=== PATIENT | male | born 1955 | race African-American/Black ===

== ENCOUNTER 2016-07-11 12:37 | Observation (INO) | payer OTHER, MEDICARE ==
[2016-07-11] MEDS ORDERED: IPRATROPIUM/ALBUTEROL 0.5-2.5 MG/3 ML AMPUL NEB ONE (13:09)
[2016-07-11 15:22] LABS: ALANINE AMINOTRANSFERASE 25 U/L (21-72); ALBUMIN 3.7 g/dL (3.5-5.0); ALKALINE PHOSPHATASE 79 U/L (38-126); ANION GAP 10 (5-19); ASPARTATE AMINO TRANSFERASE 16 U/L (17-59); BILIRUBIN,TOTAL 0.6 mg/dL (0.2-1.3); BLOOD UREA NITROGEN 13 mg/dL (7-20); CALCIUM 8.9 mg/dL (8.4-10.2); CARBON DIOXIDE 28 mmol/L (22-30); CHLORIDE 107 mmol/L (98-107); CREATININE RESULT 1.15 mg/dL (0.52-1.25); GLUCOSE 139 mg/dL (75-110); POTASSIUM 3.6 mmol/L (3.6-5.0); SODIUM 144.9 mmol/L (137-145); TOTAL PROTEIN 6.1 g/dL (6.3-8.2)
[2016-07-11 15:23] LABS: HEMATOCRIT 41.7 % (37.9-51.0); HEMOGLOBIN 13.8 g/dL (13.5-17.0); HGB HCT DIFFERENCE -0.3; MEAN CORPUSCULAR HEMOGLOBIN 26.8 pg (27.0-33.4); MEAN CORPUSCULAR VOLUME 81 fl (80-97); RED BLOOD COUNT 5.13 10^6/uL (4.35-5.55); RED CELL DISTRIBUTION WIDTH 16.6 % (11.5-14.0)
[2016-07-11] MEDS: IPRATROPIUM/ALBUTEROL 0.5-2.5 MG/3 ML AMPUL NEB SCH ×5 (15:34→22:01)
[2016-07-11] MEDS: METHYLPREDNISOLONE INJ 125 MG/2 ML SDV IV SCH (18:48)
[2016-07-11] MEDS ORDERED: METOPROLOL TARTRATE 50 MG TABLET PO SCH (21:45)
[2016-07-11] MEDS ORDERED: FLUTICASONE NASAL SPRAY 50 MCG/SPRY 120 SPRAY/16 GM NASL ONE (22:00)
[2016-07-11] MEDS ORDERED: DOFETILIDE 500 MCG CAPSULE PO ONE (22:00)
[2016-07-11] MEDS ORDERED: LISINOPRIL 10 MG TABLET PO ONE ×2 (22:00)
[2016-07-11] MEDS: BUDESONIDE/FORMOTEROL 160-4.5 MCG 60 PUFF/6 GM MDI IH SCH (22:24)
[2016-07-11] MEDS: METOPROLOL TARTRATE 50 MG TABLET PO SCH (22:24)
[2016-07-11] MEDS: DABIGATRAN ETEXILATE 150 MG CAPSULE PO SCH (22:25)
[2016-07-12] MEDS: IPRATROPIUM/ALBUTEROL 0.5-2.5 MG/3 ML AMPUL NEB SCH ×6 (00:11→10:07)
[2016-07-12] MEDS: METHYLPREDNISOLONE INJ 125 MG/2 ML SDV IV SCH ×3 (03:29→17:42)
[2016-07-12] MEDS ORDERED: (PENDING PHARMACY ID) (Paroxetine Hcl [Paxil] 30 MG) PO SCH (10:00)
[2016-07-12] MEDS ORDERED: LISINOPRIL 10 MG TABLET PO SCH (10:00)
[2016-07-12] MEDS ORDERED: CLONAZEPAM 1 MG TABLET PO SCH (10:00)
[2016-07-12] MEDS: ARIPIPRAZOLE 5 MG TABLET PO SCH (10:33)
[2016-07-12] MEDS: DABIGATRAN ETEXILATE 150 MG CAPSULE PO SCH ×2 (10:35→22:20)
[2016-07-12] MEDS: METOPROLOL TARTRATE 50 MG TABLET PO SCH ×2 (10:36→22:20)
[2016-07-12] MEDS: PAROXETINE HCL 20 MG TABLET PO SCH (10:39)
[2016-07-12] MEDS: LISINOPRIL 10 MG TABLET PO SCH (10:39)
[2016-07-12] MEDS: DOFETILIDE 500 MCG CAPSULE PO SCH ×2 (10:40→17:42)
[2016-07-12] MEDS: FLUTICASONE NASAL SPRAY 50 MCG/SPRY 120 SPRAY/16 GM NASL SCH (10:41)
[2016-07-12] MEDS: BUDESONIDE/FORMOTEROL 160-4.5 MCG 60 PUFF/6 GM MDI IH SCH ×2 (10:41→22:19)
[2016-07-12] MEDS: CLONAZEPAM 1 MG TABLET PO SCH ×2 (10:49→22:20)
[2016-07-12] MEDS ORDERED: IPRATROPIUM/ALBUTEROL 0.5-2.5 MG/3 ML AMPUL NEB PRN (11:38)
[2016-07-12] MEDS ORDERED: LEVALBUTEROL HCL NEB 1.25 MG/3 ML AMPUL NEB PRN (19:45)
--- NOTE | 2016-07-12 19:55 | PDOC H&P ---
History of Present Illness Admission Date/PCP: 07/11/16 12:37 CARMEN GANT MD History of Present Illness: KRISH RAMOS JR is a 61 year old male, he came to the office because of shortness of breath, wheezing, he has had multiple ED visits with same problem. He was admitted directly from the office into the hospital for evaluation and management of his symptoms, he was brought here for observation. He has no chest pain Past Medical History Cardiac Medical History: Reports: Atrial Fibrillation, Congestive Heart Failure , Myocardial Infarction, Hyperlipidema, Hypertension, Peripheral Vascular Disease Pulmonary Medical History: Reports: Asthma, Bronchitis, Pneumonia - X2, Sleep Apnea GI Medical History: Reports: Gastroesophageal Reflux Disease, Hiatal Hernia Musculoskeltal Medical History: Reports: Arthritis Psychiatric Medical History: Reports: Post Traumatic Stress Disorder, Schizoaffective Disorder Hematology: Reports: Anemia - ON IRON PILLS Past Surgical History Past Surgical History: Reports: Herniorrhaphy, Pacemaker Social History Smoking Status: Never Smoker Frequency of Alcohol Use: None Hx Recreational Drug Use: No Drugs: None Hx Prescription Drug Abuse: No Family History Family History: Arthritis, CAD, CVA, DM, Hyperlipidemia, Hypertension, Malignancy Parental Family History Reviewed: Yes Children Family History Reviewed: Yes Sibling(s) Family History Reviewed.: Yes Medication/Allergy Home Medications: Aripiprazole [Abilify 30 MG Tablet] 30 mg PO DAILY 07/11/16 Budesonide/Formoterol Fumarate [Symbicort HFA 160-4.5 mcg Inhaler 6 gm] 2 puff IH Q12 07/11/16 Clonazepam [Klonopin 1 mg Tablet] 1 mg PO BID 07/11/16 Dabigatran Etexilate Mesylate [Pradaxa 150 mg Capsule] 150 mg PO Q12 07/11/16 Dofetilide [Tikosyn 500 Mcg Capsule] 500 mcg PO BID 07/11/16 Fluticasone Propionate [Flonase Nasal [place] 50 Mcg/[place] 16 gm] 1 spray NASL DAILY 07/11/16 Lisinopril 10 mg PO DAILY 07/11/16 Metoprolol Tartrate [Lopressor 50 mg Tablet] 50 mg PO Q12H 07/11/16 Paroxetine HCl [Paxil] 30 mg PO DAILY 07/11/16 Allergies/Adverse Reactions: latex [Latex] Allergy (Severe, Verified 05/31/16 15:43) WHITTAKER SKIN Review of Systems Constitutional: PRESENT: fatigue Cardiovascular: PRESENT: dyspnea on exertion Respiratory: PRESENT: cough, dyspnea Gastrointestinal: PRESENT: nausea Musculoskeletal: PRESENT: back pain Neurological: ABSENT: as per HPI, abnormal gait, abnormal movements, abnormal speech, confusion, convulsions, dizziness, focal weakness, frequent falls, lack of coordination, memory loss, numbness, paresthesias, restless legs, syncope, tingling, tremor(s), vertigo, weakness, other Endocrine: ABSENT: as per HPI, cold intolerance, flushing, heat intolerance, menstrual abnormalities, polydipsia, polyphagia, polyuria, other Physical Exam Vital Signs: Temp Pulse Resp BP Pulse Ox 97.4 F 70 18 175/92 H 95 07/12/16 15:55 07/12/16 15:55 07/12/16 15:55 07/12/16 15:55 07/12/16 15:55 Intake & Output 07/11/16 07/12/16 07/13/16 06:59 06:59 06:59 Intake Total 1381 959 Output Total 1200 Balance 181 959 Weight 133.7 kg General appearance: PRESENT: mild distress Eye exam: PRESENT: PERRLA Mouth exam: PRESENT: moist Respiratory exam: PRESENT: prolonged expiratory phas, wheezes Cardiovascular exam: PRESENT: +S1, +S2 GI/Abdominal exam: PRESENT: soft, other - Obese abdomen Neurological exam: PRESENT: alert, CN II-XII grossly intact Results Laboratory Results: 07/11/16 14:20 07/11/16 14:20 Assessment & Plan - Diagnosis (1) COPD with acute exacerbation Is this a current diagnosis for this admission?: YesPlan: Patient is admitted for observation to be treated with Solu-Medrol and bronchodilators (2) CAD (coronary artery disease) Qualifiers: Coronary Disease-Associated Artery/Lesion type: [place] artery [place] vs. transplanted heart: [place] heart Associated angina: without angina Qualified Code(s): I25.10 - Atherosclerotic heart disease of [place] coronary artery without angina pectoris Is this a current diagnosis for this admission?: Yes
--- NOTE | 2016-07-12 19:58 | PDOC PROGRESS REPORT ---
Subjective Progress Note for:: 07/12/16 Subjective:: Patient was admitted because of acute COPD exacerbation, he said he feels better with treatment. Physical Exam Vital Signs: Temp Pulse Resp BP Pulse Ox 97.4 F 82 18 175/92 H 95 07/12/16 15:55 07/12/16 19:00 07/12/16 15:55 07/12/16 15:55 07/12/16 15:55 Intake & Output 07/11/16 07/12/16 07/13/16 06:59 06:59 06:59 Intake Total 1381 959 Output Total 1200 Balance 181 959 Weight 133.7 kg General appearance: PRESENT: mild distress, obese Eye exam: PRESENT: PERRLA Respiratory exam: PRESENT: wheezes Cardiovascular exam: PRESENT: +S1, +S2 GI/Abdominal exam: PRESENT: firm Neurological exam: PRESENT: alert, CN II-XII grossly intact Results Laboratory Results: 07/11/16 14:20 07/11/16 14:20 Assessment & Plan - Diagnosis (1) COPD with acute exacerbation Is this a current diagnosis for this admission?: Yes (2) CAD (coronary artery disease) Qualifiers: Coronary Disease-Associated Artery/Lesion type: [place] artery [place] vs. transplanted heart: [place] heart Associated angina: without angina Qualified Code(s): I25.10 - Atherosclerotic heart disease of [place] coronary artery without angina pectoris Is this a current diagnosis for this admission?: Yes
[2016-07-12 20:13] LABS: ABSOLUTE LYMPHOCYTES (AUTO) 1.5 10^3/uL (0.5-4.7); ABSOLUTE MONOCYTES (AUTO) 0.6 10^3/uL (0.1-1.4); BASOPHILS % (AUTO) 0.1 % (0-2); EOSINOPHILS % (AUTO) 0.1 % (0-6); HEMATOCRIT 45.1 % (37.9-51.0); HEMOGLOBIN 14.5 g/dL (13.5-17.0); HGB HCT DIFFERENCE -1.6; LYMPHOCYTES % (AUTO) 10.8 % (13-45); MEAN CORPUSCULAR HEMOGLOBIN 26.6 pg (27.0-33.4); MEAN CORPUSCULAR HGB CONC 32.2 g/dL (32.0-36.0); MEAN CORPUSCULAR VOLUME 83 fl (80-97); MONOCYTES % (AUTO) 4.5 % (3-13); RED BLOOD COUNT 5.47 10^6/uL (4.35-5.55); RED CELL DISTRIBUTION WIDTH 16.4 % (11.5-14.0); SEGMENTED NEUTROPHILS % (AUTO) 84.5 % (42-78)
[2016-07-12] MEDS: IPRATROPIUM/ALBUTEROL 0.5-2.5 MG/3 ML AMPUL NEB PRN (20:15)
[2016-07-12 20:18] LABS: WHITE BLOOD COUNT 14.2 10^3/uL (4.0-10.5)
[2016-07-13] MEDS: METHYLPREDNISOLONE INJ 125 MG/2 ML SDV IV SCH ×2 (02:06→10:39)
[2016-07-13] MEDS: IPRATROPIUM/ALBUTEROL 0.5-2.5 MG/3 ML AMPUL NEB PRN (04:38)
[2016-07-13] MEDS: PAROXETINE HCL 20 MG TABLET PO SCH (10:37)
[2016-07-13] MEDS: ARIPIPRAZOLE 5 MG TABLET PO SCH (10:37)
[2016-07-13] MEDS: FLUTICASONE NASAL SPRAY 50 MCG/SPRY 120 SPRAY/16 GM NASL SCH (10:38)
[2016-07-13] MEDS: CLONAZEPAM 1 MG TABLET PO SCH (10:39)
[2016-07-13] MEDS: LISINOPRIL 10 MG TABLET PO SCH (10:39)
[2016-07-13] MEDS: METOPROLOL TARTRATE 50 MG TABLET PO SCH (10:39)
[2016-07-13] MEDS: BUDESONIDE/FORMOTEROL 160-4.5 MCG 60 PUFF/6 GM MDI IH SCH (10:40)
[2016-07-13] MEDS: DABIGATRAN ETEXILATE 150 MG CAPSULE PO SCH (10:40)
[2016-07-13] MEDS: DOFETILIDE 500 MCG CAPSULE PO SCH (10:40)
--- NOTE | 2016-07-13 14:35 | PDOC DISCHARGE SUMMARY ---
General - Admit/Disc Date/PCP Admission Date/Primary Care Provider: 07/11/16 12:37 CARMEN GANT MD Discharge Date: 07/13/16 - Discharge Diagnosis (1) COPD with acute exacerbation Is this a current diagnosis for this admission?: Yes (2) CAD (coronary artery disease) Is this a current diagnosis for this admission?: Yes (3) Morbidly obese Is this a current diagnosis for this admission?: Yes - Additional Information Discharge Diet: As Tolerated Discharge Activity: Activity As Tolerated Home Medications: Aripiprazole [Abilify 30 MG Tablet] 30 mg PO DAILY 07/11/16 Budesonide/Formoterol Fumarate [Symbicort HFA 160-4.5 mcg Inhaler 6 gm] 2 puff IH Q12 07/11/16 Clonazepam [Klonopin 1 mg Tablet] 1 mg PO BID 07/11/16 Dabigatran Etexilate Mesylate [Pradaxa 150 mg Capsule] 150 mg PO Q12 07/11/16 Dofetilide [Tikosyn 500 Mcg Capsule] 500 mcg PO BID 07/11/16 Fluticasone Propionate [Flonase Nasal [place] 50 Mcg/[place] 16 gm] 1 spray NASL DAILY 07/11/16 Lisinopril 10 mg PO DAILY 07/11/16 Metoprolol Tartrate [Lopressor 50 mg Tablet] 50 mg PO Q12H 07/11/16 Paroxetine HCl [Paxil] 30 mg PO DAILY 07/11/16 Ipratropium/Albuterol Sulfate [Duoneb 3 ml Ampul] 3 ml [employer] [facility] [id number] [email or web address] 07/13/16 History of Present Illness History of Present Illness: KRISH RAMOS JR is a 61 year old male, he came to the office because of shortness of breath, wheezing, he has had multiple ED visits with same problem. He was admitted directly from the office into the hospital for evaluation and management of his symptoms, he was brought here for observation. He has no chest pain Hospital Course Hospital Course: Patient was admitted because of acute COPD exacerbation, he was treated with IV Solu-Medrol and bronchodilators. He seems to respond very well to nebulization treatment, he will discharge home on nebulizer. Full lung function tests was done/PFT result is pending. He was admitted for observation. Patient has improved since admission, is stable enough for discharge Physical Exam Vital Signs: Temp Pulse Resp BP Pulse Ox 97.1 F 76 22 H 150/91 H 97 07/13/16 11:49 07/13/16 11:49 07/13/16 11:49 07/13/16 11:49 07/13/16 11:49 Intake & Output 07/12/16 07/13/16 07/14/16 06:59 06:59 06:59 Intake Total 1381 1443 Output Total 1200 600 Balance 181 843 Weight 133.7 kg General appearance: PRESENT: no acute distress Eye exam: PRESENT: PERRLA Respiratory exam: PRESENT: clear to auscultation martita Cardiovascular exam: PRESENT: +S1, +S2 GI/Abdominal exam: PRESENT: soft Neurological exam: PRESENT: alert, CN II-XII grossly intact Results Laboratory Results: 07/12/16 20:05 07/11/16 14:20 07/12/16 20:05 WBC 14.2 H D RBC 5.47 Hgb 14.5 Hct 45.1 MCV 83 MCH 26.6 L MCHC 32.2 RDW 16.4 H Plt Count 112 L Seg Neutrophils % 84.5 H Lymphocytes % 10.8 L Monocytes % 4.5 Eosinophils % 0.1 Basophils % 0.1 Absolute Neutrophils 12.0 H Absolute Lymphocytes 1.5 Absolute Monocytes 0.6 Absolute Eosinophils 0.0 Absolute Basophils 0.0
[2016-07-13 15:52] VITALS: BP 142/90
--- NOTE | 2016-07-16 13:56 | Pulmonary Function Test ---
Pulmonary Function Test Date of Procedure:: 07/13/16 INDICATION:: Dyspnea Referring Provider: Dr. 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 - Report Spirometry: FVC 2.74 L 65% postbronchodilator therapy 2.67 L 63% FEV1 1.97 L 58% postbronchodilator therapy 1.96 L 58% FEV1/FVC % 72 postbronchodilator 73 Total lung capacity 4.09 L 63% Vital capacity 2.74 L 65% Inspiratory capacity 2.03 L FRC 2.06 L 74% ERV 0.34 L RV 1.35 L 57% RV/TLC % 33 predicted 38 DLCO 17.5 59% DLCO/VA 5.87 150% Lung Volume: Total lung capacity 4.09 L 63% Vital capacity 2.74 L 65% Inspiratory capacity 2.03 L FRC 2.06 L 74% ERV 0.34 L RV 1.35 L 57% RV/TLC % 33 predicted 38 Diffusion Capactity: DLCO 17.5 59% DLCO/VA 5.87 150% Impression: Mild obstructive ventilatory defect with no response to bronchodilator therapy moderate restrictive ventilatory defect with no evidence of hyperinflation or air trapping. There is a moderate decrease in diffusion capacity. (Poor test performance is indicated by volume extrapolation of FVC.)
== END 2016-07-13 17:03 | disposition home or self-care (01) ==
LOC: INTOOBSV 12:37 → 4W 12:37
PROVIDERS: ADMIT Internal Medicine; ATTEND Internal Medicine
DX: J44.1 Chronic obstructive pulmonary disease with (acute) exacerbation (principal); I25.10 Atherosclerotic heart disease of native coronary artery without angina pectoris; I48.91 Unspecified atrial fibrillation; I50.9 Heart failure, unspecified; E78.5 Hyperlipidemia, unspecified; I10 Essential (primary) hypertension; D64.9 Anemia, unspecified; I73.9 Peripheral vascular disease, unspecified; K21.9 Gastro-esophageal reflux disease without esophagitis; K44.9 Diaphragmatic hernia without obstruction or gangrene; M19.90 Unspecified osteoarthritis, unspecified site; F43.10 Post-traumatic stress disorder, unspecified; F25.9 Schizoaffective disorder, unspecified; E66.01 Morbid (severe) obesity due to excess calories; Z68.41 Body mass index [BMI] 40.0-44.9, adult; Z79.899 Other long term (current) drug therapy; Z95.0 Presence of cardiac pacemaker; I25.2 Old myocardial infarction; Z91.040 Latex allergy status
CPT/HCPCS: 36415 ×2; 85025; 85027; 80076; 80048; 94729; 94060; 94640 ×3; G0378 ×3; G0379; J3490 ×5; J2930 ×3; J7620 ×3

== ENCOUNTER 2016-07-29 13:55 | Inpatient (IN) | payer MEDICARE, OTHER ==
--- NOTE | 2016-07-29 14:00 | ER Document Report ---
ED Medical Screen (RME) - General Stated Complaint: FACIAL NUMBNESS,FAST HEART BEAT Time seen by provider: 13:59 Mode of Arrival: Ambulatory Information source: Patient Notes: 61-year-old male presents to ED for chest pain and facial numbness. Cranial nerves grossly intact no facial. 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 I have greeted and performed a rapid initial assessment of this patient. A comprehensive ED assessment and evaluation of the patient, analysis of test results and completion of medical decision making process will be conducted by an additional ED providers. TRAVEL OUTSIDE OF THE [place] IN LAST 30 DAYS: No - Related Data Allergies/Adverse Reactions: latex [Latex] Allergy (Severe, Verified 05/31/16 15:43) WHITTAKER SKIN Past Medical History - Past Medical History Cardiac Medical History: Reports: Hx Atrial Fibrillation, Hx Congestive Heart Failure, Hx Heart Attack, Hx Hypercholesterolemia, Hx Hypertension, Hx Peripheral Vascular Disease Pulmonary Medical History: Reports: Hx Asthma, Hx Bronchitis, Hx Pneumonia - X2 , Hx Sleep Apnea Neurological Medical History: Reports: Hx Cerebrovascular Accident Renal/ Medical History: Reports: Hx Benign Prostatic Hyperplasia, Hx Kidney Stones GI Medical History: Reports: Hx Gastroesophageal Reflux Disease, Hx Hiatal Hernia Musculoskeltal Medical History: Reports Hx Arthritis, Reports Hx Musculoskeletal Trauma Psychiatric Medical History: Reports: Hx Post Traumatic Stress Disorder, Hx Schizoaffective Disorder, Hx Schizophrenia Denies: Hx Depression Traumatic Medical History: Reports: Hx Fractures - Left foot Past Surgical History: Reports: Hx Cardiac Surgery - defib, Hx Herniorrhaphy, Hx Pacemaker, Hx Urinary Tract Surgery - prostate. testicle 6-3-14 - Immunizations Immunizations up to date: Yes Hx Diphtheria, Pertussis, Tetanus Vaccination: No
[2016-07-29] MEDS ORDERED: ASPIRIN 81 MG TABLET, CHEWABLE ONE (14:48)
[2016-07-29 14:53] LABS: ABSOLUTE EOSINOPHILS # (AUTO) 0.2 10^3/uL (0.0-0.6); ABSOLUTE LYMPHOCYTES (AUTO) 1.7 10^3/uL (0.5-4.7); ABSOLUTE MONOCYTES (AUTO) 0.5 10^3/uL (0.1-1.4); BASOPHILS % (AUTO) 0.6 % (0-2); EOSINOPHILS % (AUTO) 2.9 % (0-6); HEMATOCRIT 43.3 % (37.9-51.0); HEMOGLOBIN 14.3 g/dL (13.5-17.0); HGB HCT DIFFERENCE -0.4; LYMPHOCYTES % (AUTO) 26.5 % (13-45); MEAN CORPUSCULAR HGB CONC 32.9 g/dL (32.0-36.0); MEAN CORPUSCULAR VOLUME 82 fl (80-97); MONOCYTES % (AUTO) 8.4 % (3-13); RED BLOOD COUNT 5.28 10^6/uL (4.35-5.55); RED CELL DISTRIBUTION WIDTH 16.6 % (11.5-14.0); SEGMENTED NEUTROPHILS % (AUTO) 61.6 % (42-78); WHITE BLOOD COUNT 6.4 10^3/uL (4.0-10.5)
[2016-07-29 14:58] LABS: PARTIAL THROMBOPLASTIN TIME 30.3 SEC (23.5-35.8); PROTHROMBIN TIME 14.3 SEC (11.4-15.4)
[2016-07-29] MEDS ORDERED: METOPROLOL TARTRATE PF/INJ 5 MG/5 ML SDV IV ONE (15:03)
[2016-07-29] MEDS ORDERED: IPRATROPIUM/ALBUTEROL 0.5-2.5 MG/3 ML AMPUL NEB ONE ×2 (15:04→16:15)
[2016-07-29 15:10] LABS: ALANINE AMINOTRANSFERASE 31 U/L (21-72); ALBUMIN 3.9 g/dL (3.5-5.0); ALKALINE PHOSPHATASE 73 U/L (38-126); ANION GAP 9 (5-19); ASPARTATE AMINO TRANSFERASE 18 U/L (17-59); BILIRUBIN,TOTAL 0.6 mg/dL (0.2-1.3); BLOOD UREA NITROGEN 12 mg/dL (7-20); CALCIUM 9.1 mg/dL (8.4-10.2); CARBON DIOXIDE 28 mmol/L (22-30); CHLORIDE 108 mmol/L (98-107); CREATINE KINASE 241 U/L (55-170); CREATININE RESULT 1.26 mg/dL (0.52-1.25); GLUCOSE 117 mg/dL (75-110); POTASSIUM 3.9 mmol/L (3.6-5.0); SODIUM 144.8 mmol/L (137-145)
--- NOTE | 2016-07-29 15:10 | ER Document Report ---
ED General - General Chief Complaint: Chest Pain Stated Complaint: FACIAL NUMBNESS,FAST HEART BEAT Mode of Arrival: Ambulatory Information source: Patient Notes: This is a 61-year-old -[place] male with multiple medical problems who states that he has been feeling poorly for the past few days, mainly feeling tired. Today, at about 12:30, as he was in the car going to [employer], he states that he felt his heart started to beat fast and had some chest pain. He states that this was similar to his prior episodes of A. fib. This was associated with left upper extremity numbness and left neck and lower face numbness. Also he states he is short of breath. He says that in some respect this does remind him of his prior [place] several years ago. No nausea no vomiting. Upon arrival to the ER he says he does have some mild numbness to his left lower extremity as well. Of note he states he has had a terrible headache today. Currently he denies any actual chest pain just states that his chest feels "numb".. TRAVEL OUTSIDE OF THE [place] IN LAST 30 DAYS: No - Related Data Allergies/Adverse Reactions: latex [Latex] Allergy (Severe, Verified 05/31/16 15:43) WHITTAKER SKIN Past Medical History - General Information source: Patient - Social History Smoking Status: Unknown if Ever Smoked Family History: Arthritis, CAD, CVA, DM, Hyperlipidemia, Hypertension, Malignancy - Past Medical History Cardiac Medical History: Reports: Hx Atrial Fibrillation, Hx Congestive Heart Failure, Hx Heart Attack, Hx Hypercholesterolemia, Hx Hypertension, Hx Peripheral Vascular Disease Pulmonary Medical History: Reports: Hx Asthma, Hx Bronchitis, Hx Pneumonia - X2 , Hx Sleep Apnea Neurological Medical History: Reports: Hx Cerebrovascular Accident Renal/ Medical History: Reports: Hx Benign Prostatic Hyperplasia, Hx Kidney Stones GI Medical History: Reports: Hx Gastroesophageal Reflux Disease, Hx Hiatal Hernia Musculoskeltal Medical History: Reports Hx Arthritis, Reports Hx Musculoskeletal Trauma Psychiatric Medical History: Reports: Hx Post Traumatic Stress Disorder, Hx Schizoaffective Disorder, Hx Schizophrenia Denies: Hx Depression Traumatic Medical History: Reports: Hx Fractures - Left foot Past Surgical History: Reports: Hx Cardiac Surgery - defib, Hx Herniorrhaphy, Hx Pacemaker, Hx Urinary Tract Surgery - prostate. testicle 6-3-14 - Immunizations Immunizations up to date: Yes Hx Diphtheria, Pertussis, Tetanus Vaccination: No Hx Pneumococcal Vaccination: 06/03/10 Review of Systems - Review of Systems Notes: REVIEW OF SYSTEMS: CONSTITUTIONAL : Denies fever, chills, or sweats. Denies recent illness. EENT: Denies eye, ear, throat, or mouth pain or symptoms. Denies nasal or sinus congestion. CARDIOVASCULAR: Chest pain as per history of present illness RESPIRATORY: Shortness of breath as per history of present illness GASTROINTESTINAL: Denies abdominal pain. Denies nausea, vomiting, or diarrhea. Denies constipation. GENITOURINARY: Denies difficulty urinating, painful urination, burning, frequency, or blood in urine. MUSCULOSKELETAL: Denies neck or back pain or joint pain or swelling. SKIN: Denies rash or skin lesions. HEMATOLOGIC : Denies easy bruising or bleeding. LYMPHATIC: Denies swollen, enlarged glands. NEUROLOGICAL: As per history of present illness PSYCHIATRIC: Denies anxiety or stress or depression. ALL OTHER SYSTEMS REVIEWED AND NEGATIVE. Physical Exam - Vital signs Vitals: Resp Pulse Ox 20 97 07/29/16 14:39 07/29/16 14:39 Blood pressure on my exam in the room was 186/104, heart rate 72 - Notes Notes: PHYSICAL EXAMINATION: GENERAL: Well-appearing, well-nourished -[place] male, conversant and in no acute distress. HEAD: Atraumatic, normocephalic. EYES: Pupils equal round and reactive to light, extraocular movements intact, conjunctiva are normal. ENT: nares patent, oropharynx clear without exudates. Moist mucous membranes. NECK: Normal range of motion, supple without lymphadenopathy LUNGS: Decreased by basilar breath sounds with faint scattered occasional wheeze. HEART: Regular rate and rhythm without murmurs ABDOMEN: Soft, nontender, normoactive bowel sounds. No guarding, no rebound. No masses appreciated. EXTREMITIES: Normal range of motion, no pitting or edema. No cyanosis. NEUROLOGICAL: Alert and oriented x4. Cranial nerves grossly intact. Slight dysarthria which is baseline from his prior CVA. Baseline motor weakness of right upper and right lower extremity. Patient states subjectively decreased sensation to left upper and left lower extremity, however he does have sensation. Motor strength +5/5 muscle groups of LUE. Pt does have slight weakness to L foot dorsiflexion and plantar flexion. No drift. Normal cerebellar testing (gamble to heel). SKIN: Warm, Dry, normal turgor, no rashes or lesions noted. Course - Re-evaluation Re-evalutation: 07/29/16 15:19 Patient was reevaluated. He states that his breathing is about the same however his numbness on the left side is a little bit better. On repeat neurologic testing, his motor shrink this +5 over 5 in the bilateral upper and lower extremities with no asymmetry. He is to be given a DuoNeb as well as low pressure for his hypertension. Will continue frequent re-evaluations. At this time his NIH stroke scale is 1 and given his degree of hypertension as well as the fact that he is on dabigatran, I do not feel that he is a candidate for TPA at this time. Also his symptoms are mild and his symptoms are improving at this time. This was discussed with the patient and the family and their questions were answered. 07/29/16 16:10 Patient reevaluated. His blood pressure is 145/117. He states that his breathing has improved after the DuoNeb. Also he states that the numbness on the left side is completely resolved. He is having no chest pain at this time. 07/29/16 16:[address] Garcia. We will repeat a second set of cardiac enzymes in 30 minutes and if negative patient will be admitted to IMCU 07/29/16 23:57 - Vital Signs Vital signs: Temp Pulse Resp BP Pulse Ox 97.9 F 62 19 159/101 H 97 07/29/16 19:41 07/29/16 23:43 07/29/16 23:43 07/29/16 23:43 07/29/16 23:45 - Laboratory Result Diagrams: 07/29/16 14:40 07/29/16 14:40 Laboratory results interpreted by me: 07/29/16 07/29/16 14:40 14:40 RDW 16.6 H Plt Count 109 L Chloride 108 H Creatinine 1.26 H Est GFR (Non-Af Amer) 58 L Glucose 117 H Creatine Kinase 241 H - EKG Interpretation by Vt EKG shows normal: Sinus rhythm Rate: Normal Rhythm: NSR Voltage: Consistant with LVH When compared to previous EKG there are: No significant change Critical Care Note - Critical Care Note Total time excluding time spent on procedures (mins): 35 - minutes of critical care time spent in direct contact evaluating and reevaluating the patient, treating symptoms, reviewing labs and studies and speaking with family and consultants excluding any procedures Discharge - Discharge Clinical Impression: Accelerated hypertension Chest pain Qualifiers: Chest pain type: unspecified Qualified Code(s): R07.9 - Chest pain, unspecified TIA (transient ischemic attack) Qualifiers: Transient cerebral ischemia type: unspecified Qualified Code(s): G45.9 - Transient cerebral ischemic attack, unspecified Condition: Stable Disposition: ADMITTED INPATIENT Admitting Provider: Garcia Unit Admitted: Telemetry
[2016-07-29 15:22] LABS: CREATINE KINASE MB 1.07 ng/mL (<4.55)
[2016-07-29 15:26] LABS: TROPONIN I < 0.012 ng/mL
[2016-07-29] MEDS ORDERED: METHYLPREDNISOLONE INJ 125 MG/2 ML SDV IV ONE (16:14)
[2016-07-29] MEDS ORDERED: ACETAMINOPHEN 325 MG TABLET PO PRN (17:11)
--- NOTE | 2016-07-29 17:22 | PDOC H&P ---
History of Present Illness Admission Date/PCP: CARMEN GANT MD Patient complains of: chest pain/numbness History of Present Illness: KRISH RAMOS JR is a 61 year old male this 61 y/o man with h/o afib/stroke/defibator came to er with c/o lt side chest pain and numbness on lt side and weakness and in er all work up stable and all sx resolved pt denied any chest pain and denied any numbness and tingling pt see cardilogy at [facility] for cad/defbator and a fib Past Medical History Cardiac Medical History: Reports: Atrial Fibrillation, Congestive Heart Failure , Myocardial Infarction, Hyperlipidema, Hypertension, Peripheral Vascular Disease Pulmonary Medical History: Reports: Asthma, Bronchitis, Pneumonia - X2, Sleep Apnea Neurological Medical History: Reports: Ischemic CVA GI Medical History: Reports: Gastroesophageal Reflux Disease, Hiatal Hernia Musculoskeltal Medical History: Reports: Arthritis Psychiatric Medical History: Reports: Post Traumatic Stress Disorder, Schizoaffective Disorder Denies: Depression Hematology: Reports: Anemia - ON IRON PILLS Past Surgical History Past Surgical History: Reports: Herniorrhaphy, Pacemaker Social History Information Source: Patient Lives with: Family Smoking Status: Current Every Day Smoker Frequency of Alcohol Use: None Hx Recreational Drug Use: No Drugs: None Hx Prescription Drug Abuse: No Family History Family History: Arthritis, CAD, CVA, DM, Hyperlipidemia, Hypertension, Malignancy Parental Family History Reviewed: Yes Children Family History Reviewed: Yes Sibling(s) Family History Reviewed.: Yes Medication/Allergy Home Medications: Aripiprazole [Abilify 30 MG Tablet] 30 mg PO DAILY 07/11/16 Budesonide/Formoterol Fumarate [Symbicort HFA 160-4.5 mcg Inhaler 6 gm] 2 puff IH Q12 07/11/16 Clonazepam [Klonopin 1 mg Tablet] 1 mg PO BID 07/11/16 Dabigatran Etexilate Mesylate [Pradaxa 150 mg Capsule] 150 mg PO Q12 07/11/16 Dofetilide [Tikosyn 500 Mcg Capsule] 500 mcg PO BID 07/11/16 Fluticasone Propionate [Flonase Nasal [place] 50 Mcg/[place] 16 gm] 1 spray NASL DAILY 07/11/16 Lisinopril 10 mg PO DAILY 02/08/17 Metoprolol Tartrate [Lopressor 50 mg Tablet] 50 mg PO Q12H 07/11/16 Paroxetine HCl [Paxil] 30 mg PO DAILY 07/11/16 Ipratropium/Albuterol Sulfate [Duoneb 3 ml Ampul] 3 ml [facility] [id number] #[id number] vial.[email or web address] [facility] 07/13/16 Allergies/Adverse Reactions: latex [Latex] Allergy (Severe, Verified 05/31/16 15:43) WHITTAKER SKIN Review of Systems Constitutional: ABSENT: chills, fever(s), headache(s), weight gain, weight loss Eyes: ABSENT: visual disturbances Ears: ABSENT: hearing changes Cardiovascular: PRESENT: chest pain, palpitations. ABSENT: dyspnea on exertion , edema, orthropnea Respiratory: ABSENT: cough, hemoptysis Gastrointestinal: ABSENT: abdominal pain, constipation, diarrhea, hematemesis, hematochezia, nausea, vomiting Genitourinary: ABSENT: dysuria, hematuria Musculoskeletal: ABSENT: joint swelling Integumentary: ABSENT: rash, wounds Neurological: PRESENT: numbness, paresthesias. ABSENT: abnormal gait, abnormal speech, confusion, dizziness, focal weakness, syncope Psychiatric: ABSENT: anxiety, depression, homidical ideation, suicidal ideation Endocrine: ABSENT: cold intolerance, heat intolerance, menstrual abnormalities, polydipsia, polyuria Hematologic/Lymphatic: ABSENT: easy bleeding, easy bruising, lymphadenopathy Physical Exam Vital Signs: Temp Pulse Resp BP Pulse Ox 98.0 F 69 15 145/117 H 99 07/29/16 16:28 07/29/16 14:52 07/29/16 17:00 07/29/16 16:02 07/29/16 17:00 General appearance: PRESENT: no acute distress, well-developed, well-nourished Head exam: PRESENT: atraumatic, normocephalic Eye exam: PRESENT: conjunctiva pink, EOMI, PERRLA. ABSENT: scleral icterus Ear exam: PRESENT: normal external ear exam Mouth exam: PRESENT: moist, tongue midline Neck exam: PRESENT: full ROM. ABSENT: carotid bruit, JVD, lymphadenopathy, thyromegaly Respiratory exam: PRESENT: clear to auscultation martita Cardiovascular exam: PRESENT: RRR. ABSENT: diastolic murmur, rubs, systolic murmur Pulses: PRESENT: normal dorsalis pedis pul, +2 pedal pulses bilateral Vascular exam: PRESENT: normal capillary refill GI/Abdominal exam: PRESENT: normal bowel sounds, soft. ABSENT: distended, guarding, mass, organolmegaly, rebound, tenderness Rectal exam: PRESENT: deferred Neurological exam: PRESENT: alert, awake, oriented to person, oriented to place , oriented to time, oriented to situation, CN II-XII grossly intact. ABSENT: motor sensory deficit Psychiatric exam: PRESENT: appropriate affect, normal mood. ABSENT: homicidal ideation, suicidal ideation Skin exam: PRESENT: dry, intact, warm. ABSENT: cyanosis, rash Results Laboratory Results: 07/29/16 14:40 07/29/16 14:40 07/29/16 07/29/16 14:40 14:40 WBC 6.4 RBC 5.28 Hgb 14.3 Hct 43.3 MCV 82 MCH 27.0 MCHC 32.9 RDW 16.6 H Plt Count 109 L Seg Neutrophils % 61.6 Lymphocytes % 26.5 Monocytes % 8.4 Eosinophils % 2.9 Basophils % 0.6 Absolute Neutrophils 4.0 Absolute Lymphocytes 1.7 Absolute Monocytes 0.5 Absolute Eosinophils 0.2 Absolute Basophils 0.0 Sodium 144.8 Potassium 3.9 Chloride 108 H Carbon Dioxide 28 Anion Gap 9 BUN 12 Creatinine 1.26 H Est GFR ( Amer) > 60 Est GFR (Non-Af Amer) 58 L Glucose 117 H Calcium 9.1 Total Bilirubin 0.6 AST 18 ALT 31 Alkaline Phosphatase 73 Total Protein 7.0 Albumin 3.9 07/29/16 07/29/16 14:40 14:40 Creatine Kinase 241 H CK-MB (CK-2) 1.07 Troponin I < 0.012 Impressions: Chest X-Ray 07/29/16 14:20 IMPRESSION: No significant interval change. Cardiomegaly. No acute consolidations are identified. Head CT 07/29/16 14:20 IMPRESSION: No significant interval changes compared to the previous study. No significant intracranial abnormalities were identified. Findings as noted above Assessment & Plan - Diagnosis (1) TIA (transient ischemic attack) Qualifiers: Transient cerebral ischemia type: unspecified Qualified Code(s): G45.9 - Transient cerebral ischemic attack, unspecified Is this a current diagnosis for this admission?: YesPlan: admit under stroke protocol cont prdaxa and asa carotid doppler and echo order un ablt to do mri due to defbilator (2) Chest pain Qualifiers: Chest pain type: unspecified Qualified Code(s): R07.9 - Chest pain, unspecified Is this a current diagnosis for this admission?: YesPlan: order [facility] consult cardilogy (3) CAD (coronary artery disease) Qualifiers: Coronary Disease-Associated Artery/Lesion type: [place] artery [place] vs. transplanted heart: [place] heart Associated angina: without angina Qualified Code(s): I25.10 - Atherosclerotic heart disease of [place] coronary artery without angina pectoris Is this a current diagnosis for this admission?: YesPlan: cont curr med (4) COPD (chronic obstructive pulmonary disease) Qualifiers: COPD type: unspecified COPD Qualified Code(s): J44.9 - Chronic obstructive pulmonary disease, unspecified Is this a current diagnosis for this admission?: YesPlan: stable (5) Cervical radiculopathy Is this a current diagnosis for this admission?: YesPlan: possble numbness from radiculopthy pt was admitted in past and cardilogy dr serra s/o all numbness come from radiculopthy (6) Chronic atrial fibrillation Is this a current diagnosis for this admission?: YesPlan: cont curr med (7) Morbidly obese Is this a current diagnosis for this admission?: Yes - Time Time Spent: 30 to 50 Minutes Medications reviewed and adjusted accordingly: Yes Anticipated discharge: Home, Other Within: Other - Inpatient Certification Medical Necessity: Significant Comorbidiites Make Outpatient Treatment Too Risky , Need Close Monitoring Due to Risk of Patient Decompensation Post Hospital Care: D/C Operations Supervisor Documentation - Plan Summary Plan Summary: admit in [facility] per tia protcol and r/o acute cad d/w pt and family
--- NOTE | 2016-07-29 17:40 | EKG REPORT ---
SEVERITY:- ABNORMAL ECG - SINUS RHYTHM LEFT VENTRICULAR HYPERTROPHY : Confirmed by: Ana Jon MD 29-Jul-2016 17:39:24
[2016-07-29 17:46] LABS: TROPONIN I < 0.012 ng/mL
[2016-07-29] MEDS ORDERED: DABIGATRAN ETEXILATE 150 MG CAPSULE PO ONE (22:30)
[2016-07-29] MEDS: DABIGATRAN ETEXILATE 150 MG CAPSULE PO SCH (23:12)
[2016-07-29] MEDS: CLONAZEPAM 1 MG TABLET PO SCH (23:22)
[2016-07-29] MEDS: METOPROLOL TARTRATE 50 MG TABLET PO SCH (23:24)
[2016-07-29 23:59] LABS: CREATINE KINASE MB 1.07 ng/mL (<4.55)
[2016-07-30] LABS: TROPONIN I < 0.012 ng/mL
[2016-07-30] MEDS: LANSOPRAZOLE 15 MG TAB.RAP.DR PO SCH ×2 (05:59→16:41)
[2016-07-30 06:11] LABS: ABSOLUTE MONOCYTES (AUTO) 0.1 10^3/uL (0.1-1.4); ABSOLUTE NEUT (AUTO) 5.3 10^3/uL (1.7-8.2); BASOPHILS % (AUTO) 0.2 % (0-2); HEMATOCRIT 44.3 % (37.9-51.0); HEMOGLOBIN 14.4 g/dL (13.5-17.0); HGB HCT DIFFERENCE -1.1; LYMPHOCYTES % (AUTO) 15.5 % (13-45); MEAN CORPUSCULAR HEMOGLOBIN 26.7 pg (27.0-33.4); MEAN CORPUSCULAR HGB CONC 32.6 g/dL (32.0-36.0); MEAN CORPUSCULAR VOLUME 82 fl (80-97); MONOCYTES % (AUTO) 1.5 % (3-13); RED BLOOD COUNT 5.41 10^6/uL (4.35-5.55); RED CELL DISTRIBUTION WIDTH 17.1 % (11.5-14.0); SEGMENTED NEUTROPHILS % (AUTO) 82.8 % (42-78); WHITE BLOOD COUNT 6.5 10^3/uL (4.0-10.5)
[2016-07-30 06:28] LABS: ALANINE AMINOTRANSFERASE 31 U/L (21-72); ALBUMIN 3.7 g/dL (3.5-5.0); ALKALINE PHOSPHATASE 73 U/L (38-126); ANION GAP 10 (5-19); ASPARTATE AMINO TRANSFERASE 17 U/L (17-59); BILIRUBIN,TOTAL 0.7 mg/dL (0.2-1.3); BLOOD UREA NITROGEN 15 mg/dL (7-20); CALCIUM 9.3 mg/dL (8.4-10.2); CARBON DIOXIDE 27 mmol/L (22-30); CHLORIDE 106 mmol/L (98-107); CREATINE KINASE 211 U/L (55-170); GLUCOSE 141 mg/dL (75-110); POTASSIUM 4.7 mmol/L (3.6-5.0); SODIUM 142.5 mmol/L (137-145); TOTAL PROTEIN 6.8 g/dL (6.3-8.2)
[2016-07-30 06:34] LABS: CREATINE KINASE MB 1.16 ng/mL (<4.55); TROPONIN I < 0.012 ng/mL
[2016-07-30] MEDS ORDERED: BUDESONIDE/FORMOTEROL 160-4.5 MCG 60 PUFF/6 GM MDI IH SCH (08:00)
[2016-07-30] MEDS: IPRATROPIUM/ALBUTEROL 0.5-2.5 MG/3 ML AMPUL NEB SCH ×4 (08:17→20:50)
--- NOTE | 2016-07-30 09:47 | PDOC CONSULTATION ---
Consultation Consult Date: 07/30/16 Attending physician:: AGATA KO Consult reason:: Chest pain History of Present Illness Admission Date/PCP: 07/29/16 17:11 CARMEN GANT MD Patient complains of: Chest pain History of Present Illness: KRISH RAMOS JR is a 61 year old male this 61 y/o man with h/o afib/stroke/defibator came to er with c/o lt side chest pain and numbness on lt side and weakness and in er all work up stable and all sx resolved. Patient did have a stress test less than a year ago which was unremarkable. A 2-D echo about the same time showed normal LVEF. Patient does have a defibrillator in situ. Patient denied any defibrillator shocks. Currently patient chest pain-free. Patient also does history of sleep apnea and claims to be compliant with CPAP use. pt denied any chest pain and denied any numbness and tingling pt see cardilogy at [facility] [address] for cad/defbator and a fib Past Medical History Cardiac Medical History: Reports: Atrial Fibrillation, Congestive Heart Failure , Myocardial Infarction, Hyperlipidema, Hypertension, Peripheral Vascular Disease Pulmonary Medical History: Reports: Asthma, Bronchitis, Pneumonia - X2, Sleep Apnea Neurological Medical History: Reports: Ischemic CVA GI Medical History: Reports: Gastroesophageal Reflux Disease, Hiatal Hernia Musculoskeltal Medical History: Reports: Arthritis Psychiatric Medical History: Reports: Depression, Post Traumatic Stress Disorder , Schizoaffective Disorder Hematology: Reports: Anemia - ON IRON PILLS Past Surgical History Past Surgical History: Reports: Herniorrhaphy, Pacemaker - Pacemaker defibrillator Social History Information Source: Patient Lives with: Family Smoking Status: Never Smoker Frequency of Alcohol Use: None Hx Recreational Drug Use: No Drugs: None Hx Prescription Drug Abuse: No - Advance Directive Resuscitation Status: Full Code Surrogate healthcare decision maker:: Patient's Family History Family History: Arthritis, CAD, CVA, DM, Hyperlipidemia, Hypertension, Malignancy Parental Family History Reviewed: Yes Children Family History Reviewed: Yes Sibling(s) Family History Reviewed.: Yes - Positive for CAD but not premature Medication/Allergy Home Medications: Aripiprazole [Abilify 30 MG Tablet] 30 mg PO DAILY 07/11/16 Budesonide/Formoterol Fumarate [Symbicort HFA 160-4.5 mcg Inhaler 6 gm] 2 puff IH Q12 07/11/16 Clonazepam [Klonopin 1 mg Tablet] 1 mg PO BID 07/11/16 Dabigatran Etexilate Mesylate [Pradaxa 150 mg Capsule] 150 mg PO Q12 07/11/16 Dofetilide [Tikosyn 500 Mcg Capsule] 500 mcg PO BID 07/11/16 Fluticasone Propionate [Flonase Nasal [place] 50 Mcg/[place] 16 gm] 1 spray NASL DAILY 07/11/16 Lisinopril 10 mg PO DAILY 07/11/16 Metoprolol Tartrate [Lopressor 50 mg Tablet] 50 mg PO Q12H 07/11/16 Paroxetine HCl [Paxil] 30 mg PO DAILY 07/11/16 Ipratropium/Albuterol Sulfate [Duoneb 3 ml Ampul] 3 ml [facility] [id number] #[id number] vial.[facility] 07/13/16 Allergies/Adverse Reactions: latex [Latex] Allergy (Severe, Verified 05/31/16 15:43) WHITTAKER SKIN Review of Systems Review of Systems: Please see history of present illness and past medical history as wall. Constitutional: No fever or chills reported. Head : No recent chronic headaches, recent head injury. Eyes: No recent eye pain, diplopia, redness, discharge, acute visual changes. Ears: No recent chronic ear pain, acute hearing loss, ear discharge. Oral cavity: No recent ulcerations, bleeding, oral cavity discomfort. Neck: No recent acute neck pain reported. Hematologic: No recent easy bruising or bleeding or hematologic malignancy reported. Lymphatic: No recent lymphatic malignancy, chronic lymphadenopathy reported yet Cardiovascular system review: See history of present illness. Respiratory system review: No recent chronic cough, hemoptysis, blood clots in the lungs reported. Mild Shortness of breath on exertion Gastrointestinal system review: Negative for any recent acute or chronic abdominal pain, hematemesis, melena, recent change in bowel habits. Genitourinary system review: No recent acute or chronic hematuria, flank pain, UTI etc. reported. Skin system review: Negative for any recent abnormal bruising, no rash, no pruritus reported. Neurologic: Positive prior history of strokes, mini strokes, no definite seizure disorder. Psychologic: No history of major psychosis or major depression reported. Musculoskeletal: Minor aches and pains reported. No acute joint swelling reported. Endocrine: No recent polyuria, polydipsia, recent heat or cold intolerance. Physical Exam Vital Signs: Temp Pulse Resp BP Pulse Ox 97.7 F 71 19 155/100 H 93 07/30/16 08:39 07/30/16 08:39 07/30/16 08:39 07/30/16 08:39 07/30/16 08:39 Intake & Output 07/29/16 07/30/16 07/31/16 06:59 06:59 06:59 Intake Total 5 Output Total 500 Balance -495 Weight 134 kg Exam: GENERAL: well-nourished and in no acute distress. Alert and oriented x3 HEAD: Atraumatic, normocephalic. EYES: Pupils equal round and reactive to light, extraocular movements intact, sclera anicteric, conjunctiva are normal. ENT: TMs normal, nares patent, oropharynx clear without exudates. Moist mucous membranes. No oral ulcerations or bleeding gums noted NECK: supple without lymphadenopathy. Trachea is central. No cervical or axillary lymphadenopathy noted. Carotids are 2+, JVD WNL LUNGS: Respiration seems nonlabored, no significant accessory muscle action noted. Breath sounds clear to auscultation bilaterally and equal noted. No wheezes rales or rhonchi noted. No significant dullness noted on percussion. CHEST: Palpation of the chest wall shows no significant chest wall tenderness. No other significant abnormalities noted. Defibrillator noted left side chest. HEART: [place] [employer], No PSH, 1/6 HEIKE aortic area, 1/6 soto systolic murmur mitral area, no rubs, no gallops. ABDOMEN: Soft, no significant tenderness appreciated, normoactive bowel sounds. No guarding, no rebound. No rigidity noted . No masses appreciated. EXTREMITIES: Pedal pulses are 1-2+, no calf tenderness noted. No clubbing or cyanosis.trace to 1+ pedal edema noted NEUROLOGICAL: Focused neurological exam showed no significant neurologic deficit. Normal speech, no focal weakness appreciated. PSYCH: Normal mood, normal affect. Judgment and insight within normal limits. SKIN: No significant ecchymosis, rash, ulcerations or signs of pruritus noted. MUSCULOSKELETAL EXAM: No significant joint swelling noted. Results Laboratory Results: 07/30/16 05:25 07/30/16 05:25 07/30/16 07/30/16 05:25 05:25 WBC 6.5 RBC 5.41 Hgb 14.4 Hct 44.3 MCV 82 MCH 26.7 L MCHC 32.6 RDW 17.1 H Plt Count 101 L Seg Neutrophils % 82.8 H Lymphocytes % 15.5 Monocytes % 1.5 L Eosinophils % 0.0 Basophils % 0.2 Absolute Neutrophils 5.3 Absolute Lymphocytes 1.0 Absolute Monocytes 0.1 Absolute Eosinophils 0.0 Absolute Basophils 0.0 Sodium 142.5 Potassium 4.7 Chloride 106 Carbon Dioxide 27 Anion Gap 10 BUN 15 Creatinine 1.10 Est GFR ( Amer) > 60 Est GFR (Non-Af Amer) > 60 Glucose 141 H Calcium 9.3 Total Bilirubin 0.7 AST 17 ALT 31 Alkaline Phosphatase 73 Total Protein 6.8 Albumin 3.7 07/29/16 07/29/16 07/29/16 17:15 23:16 23:16 Creatine Kinase 234 H 230 H CK-MB (CK-2) 1.07 Troponin I < 0.012 07/30/16 07/30/16 05:25 05:25 Creatine Kinase 211 H CK-MB (CK-2) 1.16 Troponin I < 0.012 EKG Comments: Sinus rhythm, no acute ST-T wave changes noted Impressions: Chest X-Ray 07/29/16 14:20 IMPRESSION: No significant interval change. Cardiomegaly. No acute consolidations are identified. Head CT 07/29/16 14:20 IMPRESSION: No significant interval changes compared to the previous study. No significant intracranial abnormalities were identified. Findings as noted above Assessment & Plan - Diagnosis (1) Chest pain Qualifiers: Chest pain type: unspecified Qualified Code(s): R07.9 - Chest pain, unspecified Is this a current diagnosis for this admission?: Yes (2) TIA (transient ischemic attack) Qualifiers: Transient cerebral ischemia type: unspecified Qualified Code(s): G45.9 - Transient cerebral ischemic attack, unspecified Is this a current diagnosis for this admission?: Yes (3) COPD (chronic obstructive pulmonary disease) Qualifiers: COPD type: unspecified COPD Qualified Code(s): J44.9 - Chronic obstructive pulmonary disease, unspecified Is this a current diagnosis for this admission?: Yes (4) Sleep apnea syndrome Qualifiers: Sleep apnea type: unspecified type Qualified Code(s): G47.30 - Sleep apnea, unspecified Is this a current diagnosis for this admission?: Yes (5) Obesity Qualifiers: Obesity severity: unspecified obesity severity Is this a current diagnosis for this admission?: Yes - Notes Notes: Chest pain: Patient had a recent negative stress test. At this point, in the absence of recurrence of chest pain, negative enzymes and negative EKG changes, no further intervention planned. Transient ischemic attack: Continue with statin and chronic anticoagulation. COPD: currently stable, continue baseline management. Sleep apnea syndrome: Patient may benefit from a repeat titration study. Patient advised compliance with CPAP therapy. Obesity: Patient advised in weight loss. Paroxysmal atrial fibrillation: Patient currently maintaining sinus rhythm. Currently stable. Continue chronic anticoagulation. - Time Time Spent: 30 to 50 Minutes - CODE STATUS was discussed, patient remains full code. Surrogate decision-maker unchanged. Multiple medical problems were addressed.More than 50% of the time spent coordinating care, discussing management plans with involved caregivers. Management plans discussed with involved personnels. Medical decision making was of moderate complexity.
[2016-07-30] MEDS: ARIPIPRAZOLE 5 MG TABLET PO SCH (10:38)
[2016-07-30] MEDS: ASPIRIN 325 MG TABLET, ENT COATED PO SCH (10:39)
[2016-07-30] MEDS: PAROXETINE HCL 20 MG TABLET PO SCH (10:39)
[2016-07-30] MEDS: CLONAZEPAM 1 MG TABLET PO SCH ×2 (10:39→21:10)
[2016-07-30] MEDS: FLUTICASONE NASAL SPRAY 50 MCG/SPRY 120 SPRAY/16 GM NASL SCH (10:41)
[2016-07-30] MEDS: BUDESONIDE/FORMOTEROL 160-4.5 MCG 60 PUFF/6 GM MDI IH SCH ×2 (10:41→21:11)
[2016-07-30] MEDS: DABIGATRAN ETEXILATE 150 MG CAPSULE PO SCH ×2 (10:42→21:11)
[2016-07-30] MEDS: METOPROLOL TARTRATE 50 MG TABLET PO SCH ×2 (10:47→21:11)
[2016-07-30] MEDS: DOFETILIDE 500 MCG CAPSULE PO SCH ×2 (10:48→17:34)
--- NOTE | 2016-07-30 19:20 | PDOC DISCHARGE SUMMARY ---
General - Admit/Disc Date/PCP Admission Date/Primary Care Provider: 07/29/16 17:11 CARMEN GANT MD Discharge Date: 07/30/16 - Discharge Diagnosis (1) TIA (transient ischemic attack) Is this a current diagnosis for this admission?: Yes (2) COPD (chronic obstructive pulmonary disease) Is this a current diagnosis for this admission?: Yes - Additional Information Resuscitation Status: Full Code Home Medications: Albuterol Sulfate [Proair HFA] 2 puff IH Q4HP PRN 07/30/16 Aripiprazole [Abilify 30 MG Tablet] 30 mg PO DAILY 07/30/16 Benztropine Mesylate [Benztropine Mesylate 2 mg Tablet] 2 mg PO Q12 07/30/16 Budesonide/Formoterol Fumarate [Symbicort HFA 160-4.5 mcg Inhaler 6 gm] 2 puff IH Q12 07/30/16 Clonazepam [Klonopin] 1 mg PO Q12 07/30/16 Dabigatran Etexilate Mesylate [Pradaxa 150 mg Capsule] 150 mg PO Q12 07/30/16 Dofetilide [Tikosyn 500 Mcg Capsule] 500 mcg PO Q12 07/30/16 Doxepin HCl [Silenor] 6 mg PO QHS 07/30/16 Finasteride [Proscar 5 mg Tablet] 5 mg PO DAILY 07/30/16 Fluticasone Propionate [Flonase Nasal [place] 50 Mcg/[place] 16 gm] 1 spray NASL DAILY 07/30/16 Lisinopril [Zestril] 10 mg PO DAILY 07/30/16 Methocarbamol [Robaxin 500 mg Tablet] 500 mg PO Q12 07/30/16 Metoprolol Tartrate [Lopressor 50 mg Tablet] 50 mg PO Q12 07/30/16 Paroxetine HCl [Paxil 20 mg Tablet] 30 mg PO DAILY #0 tablet 07/30/16 Paroxetine HCl [Paxil] 30 mg PO QAM 07/30/16 Potassium Chloride 10 meq PO DAILY 07/30/16 History of Present Illness History of Present Illness: KRISH RAMOS JR is a 61 year old male was admitted because of transient ischemic attack, was admitted for observation, he daily is to be because of transient weakness of the facial musculature Physical Exam Vital Signs: Temp Pulse Resp BP Pulse Ox 97.8 F 66 19 149/96 H 89 L 07/30/16 15:51 07/30/16 16:00 07/30/16 16:00 07/30/16 16:00 07/30/16 16:00 Intake & Output 07/29/16 07/30/16 07/31/16 06:59 06:59 06:59 Intake Total 5 954 Output Total 500 0 Balance -495 954 Weight 134 kg 134 kg General appearance: PRESENT: no acute distress Eye exam: PRESENT: PERRLA Respiratory exam: PRESENT: clear to auscultation martita Cardiovascular exam: PRESENT: +S1, +S2 GI/Abdominal exam: PRESENT: soft Neurological exam: PRESENT: alert, CN II-XII grossly intact Results Laboratory Results: 07/30/16 05:25 07/30/16 05:25 07/30/16 07/30/16 05:25 05:25 WBC 6.5 RBC 5.41 Hgb 14.4 Hct 44.3 MCV 82 MCH 26.7 L MCHC 32.6 RDW 17.1 H Plt Count 101 L Seg Neutrophils % 82.8 H Lymphocytes % 15.5 Monocytes % 1.5 L Eosinophils % 0.0 Basophils % 0.2 Absolute Neutrophils 5.3 Absolute Lymphocytes 1.0 Absolute Monocytes 0.1 Absolute Eosinophils 0.0 Absolute Basophils 0.0 Sodium 142.5 Potassium 4.7 Chloride 106 Carbon Dioxide 27 Anion Gap 10 BUN 15 Creatinine 1.10 Est GFR ( Amer) > 60 Est GFR (Non-Af Amer) > 60 Glucose 141 H Calcium 9.3 Total Bilirubin 0.7 AST 17 ALT 31 Alkaline Phosphatase 73 Total Protein 6.8 Albumin 3.7 07/29/16 07/29/16 07/29/16 17:15 23:16 23:16 Creatine Kinase 234 H 230 H CK-MB (CK-2) 1.07 Troponin I < 0.012 07/30/16 07/30/16 05:25 05:25 Creatine Kinase 211 H CK-MB (CK-2) 1.16 Troponin I < 0.012 Impressions: Chest X-Ray 07/29/16 14:20 IMPRESSION: No significant interval change. Cardiomegaly. No acute consolidations are identified. Head CT 07/29/16 14:20 IMPRESSION: No significant interval changes compared to the previous study. No significant intracranial abnormalities were identified. Findings as noted above
[2016-07-31 06:06] LABS: ABSOLUTE EOSINOPHILS # (AUTO) 0.1 10^3/uL (0.0-0.6); ABSOLUTE LYMPHOCYTES (AUTO) 2.2 10^3/uL (0.5-4.7); ABSOLUTE MONOCYTES (AUTO) 0.8 10^3/uL (0.1-1.4); ABSOLUTE NEUT (AUTO) 5.7 10^3/uL (1.7-8.2); BASOPHILS % (AUTO) 0.1 % (0-2); EOSINOPHILS % (AUTO) 1.2 % (0-6); LYMPHOCYTES % (AUTO) 25.1 % (13-45); MEAN CORPUSCULAR HEMOGLOBIN 26.5 pg (27.0-33.4); MEAN CORPUSCULAR HGB CONC 32.5 g/dL (32.0-36.0); MEAN CORPUSCULAR VOLUME 82 fl (80-97); MONOCYTES % (AUTO) 9.3 % (3-13); RED BLOOD COUNT 5.27 10^6/uL (4.35-5.55); SEGMENTED NEUTROPHILS % (AUTO) 64.3 % (42-78); WHITE BLOOD COUNT 8.9 10^3/uL (4.0-10.5)
[2016-07-31 06:24] LABS: ALANINE AMINOTRANSFERASE 28 U/L (21-72); ALBUMIN 3.7 g/dL (3.5-5.0); ALKALINE PHOSPHATASE 71 U/L (38-126); ANION GAP 9 (5-19); ASPARTATE AMINO TRANSFERASE 16 U/L (17-59); BILIRUBIN,TOTAL 0.6 mg/dL (0.2-1.3); BLOOD UREA NITROGEN 18 mg/dL (7-20); CARBON DIOXIDE 29 mmol/L (22-30); CHLORIDE 104 mmol/L (98-107); CREATININE RESULT 1.11 mg/dL (0.52-1.25); GLUCOSE 123 mg/dL (75-110); SODIUM 142.4 mmol/L (137-145); TOTAL PROTEIN 6.6 g/dL (6.3-8.2)
[2016-07-31] MEDS: LANSOPRAZOLE 15 MG TAB.RAP.DR PO SCH (06:33)
[2016-07-31] MEDS: IPRATROPIUM/ALBUTEROL 0.5-2.5 MG/3 ML AMPUL NEB SCH (08:25)
[2016-07-31] MEDS: ARIPIPRAZOLE 5 MG TABLET PO SCH (10:35)
[2016-07-31] MEDS: DABIGATRAN ETEXILATE 150 MG CAPSULE PO SCH (10:35)
[2016-07-31] MEDS: ASPIRIN 325 MG TABLET, ENT COATED PO SCH (10:36)
[2016-07-31] MEDS: PAROXETINE HCL 20 MG TABLET PO SCH (10:36)
[2016-07-31] MEDS: CLONAZEPAM 1 MG TABLET PO SCH (10:36)
[2016-07-31] MEDS: BUDESONIDE/FORMOTEROL 160-4.5 MCG 60 PUFF/6 GM MDI IH SCH (10:37)
[2016-07-31] MEDS: DOFETILIDE 500 MCG CAPSULE PO SCH (10:37)
[2016-07-31] MEDS: FLUTICASONE NASAL SPRAY 50 MCG/SPRY 120 SPRAY/16 GM NASL SCH (10:40)
[2016-07-31] MEDS: METOPROLOL TARTRATE 50 MG TABLET PO SCH (10:41)
[2016-07-31 10:48] VITALS: BP 152/101
--- NOTE | 2016-07-31 13:23 | PDOC PROGRESS REPORT ---
Subjective Progress Note for:: 07/31/16 Subjective:: Patient seems to be doing better. Patient was having carotid duplex when he was seen. Pt is denying any chest arm or neck discomfort. Patient denying any PND, orthopnea. Patient denied any sustained palpitations, dizziness, syncope, near syncope. Patient denying any fever chills. Patient denying any other significant discomfort. Patient is maintaining sinus rhythm. Review of systems: Rest review of systems negative. Medications: Medications have been reviewed. Physical Exam Vital Signs: Temp Pulse Resp BP Pulse Ox 97.8 F 69 22 H 152/101 H 97 07/31/16 10:43 07/31/16 10:43 07/31/16 10:43 07/31/16 10:43 07/31/16 10:43 Intake & Output 07/30/16 07/31/16 08/01/16 06:59 06:59 06:59 Intake Total 5 1886 Output Total 500 0 Balance -495 1886 Weight 134 kg 133.7 kg Exam: GENERAL: well-nourished and in no acute distress. Alert and oriented x3 HEAD: Atraumatic, normocephalic. EYES: Pupils equal round and reactive to light, extraocular movements intact, sclera anicteric, conjunctiva are normal. ENT: TMs normal, nares patent, oropharynx clear without exudates. Moist mucous membranes. No oral ulcerations or bleeding gums noted NECK: supple without lymphadenopathy. Trachea is central. No cervical or axillary lymphadenopathy noted. Carotids are 2+, JVD WNL LUNGS: Respiration seems nonlabored, no significant accessory muscle action noted. Breath sounds clear to auscultation bilaterally and equal noted. No wheezes rales or rhonchi noted. No significant dullness noted on percussion. CHEST: Palpation of the chest wall shows no significant chest wall tenderness. No other significant abnormalities noted. 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 ABDOMEN: Soft, no significant tenderness appreciated, normoactive bowel sounds. No guarding, no rebound. No rigidity noted . No masses appreciated. EXTREMITIES: Pedal pulses are 1-2+, no calf tenderness noted. No clubbing or cyanosis.trace to 1+ pedal edema noted NEUROLOGICAL: Focused neurological exam showed no significant neurologic deficit. Normal speech, no focal weakness appreciated. PSYCH: Normal mood, normal affect. Judgment and insight within normal limits. SKIN: No significant ecchymosis, rash, ulcerations or signs of pruritus noted. MUSCULOSKELETAL EXAM: No significant joint swelling noted. Results Laboratory Results: 07/31/16 05:12 07/31/16 05:12 07/31/16 07/31/16 05:12 05:12 WBC 8.9 RBC 5.27 Hgb 14.0 Hct 43.0 MCV 82 MCH 26.5 L MCHC 32.5 RDW 17.0 H Plt Count 103 L Seg Neutrophils % 64.3 Lymphocytes % 25.1 Monocytes % 9.3 Eosinophils % 1.2 Basophils % 0.1 Absolute Neutrophils 5.7 Absolute Lymphocytes 2.2 Absolute Monocytes 0.8 Absolute Eosinophils 0.1 Absolute Basophils 0.0 Sodium 142.4 Potassium 4.0 Chloride 104 Carbon Dioxide 29 Anion Gap 9 BUN 18 Creatinine 1.11 Est GFR ( Amer) > 60 Est GFR (Non-Af Amer) > 60 Glucose 123 H Calcium 9.0 Total Bilirubin 0.6 AST 16 L ALT 28 Alkaline Phosphatase 71 Total Protein 6.6 Albumin 3.7 07/29/16 07/29/16 07/29/16 17:15 23:16 23:16 Creatine Kinase 234 H 230 H CK-MB (CK-2) 1.07 Troponin I < 0.012 07/30/16 07/30/16 05:25 05:25 Creatine Kinase 211 H CK-MB (CK-2) 1.16 Troponin I < 0.012 Impressions: Chest X-Ray 07/29/16 14:20 IMPRESSION: No significant interval change. Cardiomegaly. No acute consolidations are identified. Head CT 07/29/16 14:20 IMPRESSION: No significant interval changes compared to the previous study. No significant intracranial abnormalities were identified. Findings as noted above Carotid Doppler Study 07/31/16 00:00 IMPRESSION: NO HEMODYNAMICALLY SIGNIFICANT STENOSIS. Assessment & Plan - Diagnosis (1) Chest pain Qualifiers: Chest pain type: unspecified Qualified Code(s): R07.9 - Chest pain, unspecified Is this a current diagnosis for this admission?: Yes (2) TIA (transient ischemic attack) Qualifiers: Transient cerebral ischemia type: unspecified Qualified Code(s): G45.9 - Transient cerebral ischemic attack, unspecified Is this a current diagnosis for this admission?: Yes (3) COPD (chronic obstructive pulmonary disease) Qualifiers: COPD type: unspecified COPD Qualified Code(s): J44.9 - Chronic obstructive pulmonary disease, unspecified Is this a current diagnosis for this admission?: Yes (4) Sleep apnea syndrome Qualifiers: Sleep apnea type: unspecified type Qualified Code(s): G47.30 - Sleep apnea, unspecified Is this a current diagnosis for this admission?: Yes (5) Obesity Qualifiers: Obesity severity: unspecified obesity severity Is this a current diagnosis for this admission?: Yes - Notes Notes: Chest pain: [place] to be noncardiac in view of negative enzymes. If this persist , further evaluation with either a nuclear stress test or cardiac catheterization may become indicated. Patient does wish to follow locally. TIA: Continue statins and chronic anticoagulation. Carotid duplex results pending. COPD: Currently stable. Obesity: Patient encouraged in weight loss. Paroxysmal atrial fibrillation: Patient currently maintaining sinus rhythm and is on chronic anticoagulation. Status post pacemaker placement: Currently stable. Chest x-ray review shows that patient does have a pacemaker not a defibrillator. - Time Time with patient: 15-25 minutes - CODE STATUS was discussed, patient remains full code. Surrogate decision-maker unchanged. Multiple medical problems were addressed.More than 50% of the time spent coordinating care, discussing management plans with involved caregivers. Management plans discussed with involved personnels. Medical decision making was of moderate complexity. Medications reviewed and adjusted accordingly: Yes
== END 2016-07-31 11:22 | disposition home or self-care (01) | DRG 69 ==
LOC: ER 13:55 → EH 17:11 → 3W 07-30 00:42
PROVIDERS: ADMIT Family Medicine; ATTEND Internal Medicine
DX: G45.9 Transient cerebral ischemic attack, unspecified (principal); Z68.41 Body mass index [BMI] 40.0-44.9, adult; I69.322 Dysarthria following cerebral infarction; I25.2 Old myocardial infarction; E87.5 Hyperkalemia; I48.0 Paroxysmal atrial fibrillation; R20.0 Anesthesia of skin; R53.1 Weakness; R07.89 Other chest pain; E66.01 Morbid (severe) obesity due to excess calories; D64.9 Anemia, unspecified; F43.10 Post-traumatic stress disorder, unspecified; K21.9 Gastro-esophageal reflux disease without esophagitis; I11.0 Hypertensive heart disease with heart failure; I50.9 Heart failure, unspecified; M54.12 Radiculopathy, cervical region; M19.90 Unspecified osteoarthritis, unspecified site; I25.10 Atherosclerotic heart disease of native coronary artery without angina pectoris; F17.200 Nicotine dependence, unspecified, uncomplicated; I73.9 Peripheral vascular disease, unspecified; J45.909 Unspecified asthma, uncomplicated; F25.9 Schizoaffective disorder, unspecified; N40.0 Benign prostatic hyperplasia without lower urinary tract symptoms; Z87.442 Personal history of urinary calculi; Z91.040 Latex allergy status; Z79.899 Other long term (current) drug therapy; Z95.0 Presence of cardiac pacemaker; Z82.49 Family history of ischemic heart disease and other diseases of the circulatory system; Z82.3 Family history of stroke; Z83.3 Family history of diabetes mellitus; Z80.9 Family history of malignant neoplasm, unspecified; Z82.61 Family history of arthritis
CPT/HCPCS: 36415; 70450; 71010; 80053; 82550; 82553; 84484; 85025; 85610; 85730; 93005; 93010; 93880; 94640; 96374; 96375; 99291; J2930; J3490; J7620

== ENCOUNTER 2016-10-26 14:51 | Observation (INO) | payer OTHER, MEDICARE ==
[2016-10-26 15:51] LABS: HEMATOCRIT 43.7 % (37.9-51.0); HEMOGLOBIN 13.9 g/dL (13.5-17.0); MEAN CORPUSCULAR HEMOGLOBIN 25.5 pg (27.0-33.4); MEAN CORPUSCULAR HGB CONC 31.8 g/dL (32.0-36.0); MEAN CORPUSCULAR VOLUME 80 fl (80-97); RED BLOOD COUNT 5.45 10^6/uL (4.35-5.55); RED CELL DISTRIBUTION WIDTH 16.9 % (11.5-14.0); WHITE BLOOD COUNT 6.4 10^3/uL (4.0-10.5)
[2016-10-26 16:10] LABS: ALANINE AMINOTRANSFERASE 38 U/L (21-72); ALBUMIN 3.6 g/dL (3.5-5.0); ALKALINE PHOSPHATASE 86 U/L (38-126); ANION GAP 10 (5-19); ASPARTATE AMINO TRANSFERASE 23 U/L (17-59); BILIRUBIN,DIRECT 0.3 mg/dL (0.0-0.4); BILIRUBIN,TOTAL 0.5 mg/dL (0.2-1.3); BLOOD UREA NITROGEN 15 mg/dL (7-20); CALCIUM 9.2 mg/dL (8.4-10.2); CARBON DIOXIDE 28 mmol/L (22-30); CHLORIDE 107 mmol/L (98-107); CREATININE RESULT 1.17 mg/dL (0.52-1.25); GLUCOSE 117 mg/dL (75-110); SODIUM 144.8 mmol/L (137-145); TOTAL PROTEIN 6.7 g/dL (6.3-8.2)
[2016-10-26 16:40] LABS: THYROID STIMULATING HORMONE 0.68 uIU/mL (0.47-4.68)
[2016-10-26] MEDS ORDERED: ALBUTEROL SULFATE HFA (90 MCG/PUFF) 200 PUFF/8.5 GM MDI IH PRN (18:25)
[2016-10-26] MEDS: CLONAZEPAM 1 MG TABLET PO SCH (21:56)
[2016-10-26] MEDS: BENZTROPINE MESYLATE 1 MG TABLET PO SCH (21:57)
[2016-10-26] MEDS: METOPROLOL TARTRATE 50 MG TABLET PO SCH (21:57)
[2016-10-26] MEDS: BUDESONIDE/FORMOTEROL 160-4.5 MCG 60 PUFF/6 GM MDI IH SCH (21:58)
[2016-10-26] MEDS: DOFETILIDE 500 MCG CAPSULE PO SCH (21:58)
[2016-10-26] MEDS: DABIGATRAN ETEXILATE 150 MG CAPSULE PO SCH (21:58)
[2016-10-26] MEDS: METHOCARBAMOL 500 MG TABLET PO SCH (21:59)
[2016-10-26] MEDS ORDERED: (PENDING PHARMACY ID) (Doxepin Hcl [Silenor] 6 MG) PO SCH (22:00)
[2016-10-26 22:27] LABS: APPEARANCE,URINE CLEAR; BILIRUBIN,URINE NEGATIVE (NEGATIVE); GLUCOSE, URINE NEGATIVE (NEGATIVE); KETONES,URINE NEGATIVE (NEGATIVE); LEUKOCYTE ESTERASE,URINE NEGATIVE (NEGATIVE); NITRITE,URINE NEGATIVE (NEGATIVE); PROTEIN,URINE NEGATIVE (NEGATIVE); URINE SPECIFIC GRAVITY 1.012; UROBILINOGEN,URINE NEGATIVE mg/dL (<2.0)
[2016-10-27] MEDS ORDERED: PAROXETINE HCL 20 MG TABLET PO SCH (08:00)
[2016-10-27] MEDS ORDERED: FUROSEMIDE 20 MG TABLET PO SCH (08:00)
[2016-10-27] MEDS: CLONAZEPAM 1 MG TABLET PO SCH (09:04)
[2016-10-27] MEDS: BENZTROPINE MESYLATE 1 MG TABLET PO SCH (09:04)
[2016-10-27] MEDS: DOFETILIDE 500 MCG CAPSULE PO SCH (09:05)
[2016-10-27] MEDS: METOPROLOL TARTRATE 50 MG TABLET PO SCH (09:05)
[2016-10-27] MEDS: DABIGATRAN ETEXILATE 150 MG CAPSULE PO SCH (09:05)
[2016-10-27] MEDS: METHOCARBAMOL 500 MG TABLET PO SCH (09:06)
[2016-10-27] MEDS: BUDESONIDE/FORMOTEROL 160-4.5 MCG 60 PUFF/6 GM MDI IH SCH (09:16)
[2016-10-27] MEDS ORDERED: LISINOPRIL 10 MG TABLET PO SCH (10:00)
[2016-10-27] MEDS ORDERED: FLUTICASONE NASAL SPRAY 50 MCG/SPRY 120 SPRAY/16 GM NASL SCH (10:00)
[2016-10-27] MEDS ORDERED: POTASSIUM CHLORIDE 10 MEQ TABLET.SA PO SCH (10:00)
[2016-10-27] MEDS ORDERED: FINASTERIDE 5 MG TABLET PO SCH (10:00)
[2016-10-27] MEDS ORDERED: ARIPIPRAZOLE 5 MG TABLET PO SCH (10:00)
--- NOTE | 2016-10-27 12:47 | PDOC H&P ---
History of Present Illness Admission Date/PCP: 10/26/16 14:51 CARMEN GANT MD History of Present Illness: KRISH RAMOS JR is a 61 year old male, he has a history of obesity, BMI 48 , chronic atrial fibrillation, chronic bronchitis. He came to the office because he said he was referred from the [place] [facility] to come to the office to see me because of abnormal lab data. He stated that he had blood work done in the [place] [facility] and he was found to have a low hemoglobin. He did not have the lab results with him, it was Saturday evening, patient spouse stated that it is best to admit him to the hospital for evaluation due to the fact that they were advised in the [place] [facility] that he has a low hemoglobin. He was admitted directly from the office to the hospital, but the hemogram that was done in this hospital was normal, the comprehensive metabolic panel was normal. There is no evidence of anemia based on the blood work that was done in this hospital Past Medical History Cardiac Medical History: Reports: Atrial Fibrillation, Myocardial Infarction, Hyperlipidema, Hypertension, Peripheral Vascular Disease Pulmonary Medical History: Reports: Asthma, Bronchitis, Chronic Obstructive Pulmonary Disease (COPD), Pneumonia - X2, Sleep Apnea GI Medical History: Reports: Gastroesophageal Reflux Disease, Hiatal Hernia Musculoskeltal Medical History: Reports: Arthritis Psychiatric Medical History: Reports: Depression, Post Traumatic Stress Disorder , Schizoaffective Disorder Hematology: Reports: Anemia - ON IRON PILLS Past Surgical History Past Surgical History: Reports: Herniorrhaphy, Pacemaker - Pacemaker defibrillator Social History Smoking Status: Never Smoker Frequency of Alcohol Use: None Hx Recreational Drug Use: No Drugs: None Hx Prescription Drug Abuse: No Family History Family History: Arthritis, CAD, CVA, DM, Hyperlipidemia, Hypertension, Malignancy Parental Family History Reviewed: Yes Children Family History Reviewed: Yes Sibling(s) Family History Reviewed.: Yes Medication/Allergy Home Medications: Albuterol Sulfate [Proair HFA] 2 puff IH Q4HP PRN 10/26/16 Aripiprazole [Abilify 30 MG Tablet] 30 mg PO DAILY 10/26/16 Benztropine Mesylate [Benztropine Mesylate 2 mg Tablet] 2 mg PO Q12 10/26/16 Budesonide/Formoterol Fumarate [Symbicort HFA 160-4.5 mcg Inhaler 6 gm] 2 puff IH Q12 10/26/16 Clonazepam [Klonopin 1 mg Tablet] 1 mg PO Q12 10/26/16 Dabigatran Etexilate Mesylate [Pradaxa 150 mg Capsule] 150 mg PO Q12 10/26/16 Dofetilide [Tikosyn 500 Mcg Capsule] 500 mcg PO Q12 10/26/16 Doxepin HCl [Silenor] 6 mg PO QHS 10/26/16 Finasteride [Proscar 5 mg Tablet] 5 mg PO DAILY 10/26/16 Fluticasone Propionate [Flonase Nasal [place] 50 Mcg/[place] 16 gm] 1 spray NASL DAILY 10/26/16 Furosemide [Lasix 20 mg Tablet] 20 mg PO QAM 10/26/16 Lisinopril [Zestril] 10 mg PO DAILY 10/26/16 Methocarbamol [Robaxin 500 mg Tablet] 500 mg PO Q12 10/26/16 Metoprolol Tartrate [Lopressor] 50 mg PO Q12 10/26/16 Paroxetine HCl [Paxil 20 mg Tablet] 30 mg PO QAM 10/26/16 Potassium Chloride [K-Tab ER] 10 meq PO DAILY 10/26/16 Allergies/Adverse Reactions: latex [Latex] Allergy (Severe, Verified 05/31/16 15:43) WHITTAKER SKIN Review of Systems Constitutional: PRESENT: weight gain Eyes: ABSENT: visual disturbances Ears: ABSENT: hearing changes Cardiovascular: ABSENT: chest pain, dyspnea on exertion, edema, orthropnea, palpitations Respiratory: PRESENT: cough, dyspnea Gastrointestinal: ABSENT: abdominal pain, constipation, diarrhea, hematemesis, hematochezia, nausea, vomiting Genitourinary: ABSENT: dysuria, hematuria Musculoskeletal: ABSENT: joint swelling Integumentary: ABSENT: rash, wounds Neurological: ABSENT: abnormal gait, abnormal speech, confusion, dizziness, focal weakness, syncope Psychiatric: ABSENT: anxiety, depression, homidical ideation, suicidal ideation Endocrine: ABSENT: cold intolerance, heat intolerance, menstrual abnormalities, polydipsia, polyuria Hematologic/Lymphatic: ABSENT: easy bleeding, easy bruising, lymphadenopathy Physical Exam Vital Signs: Temp Pulse Resp BP Pulse Ox 98.2 F 70 22 H 152/88 H 96 10/27/16 11:13 10/27/16 11:13 10/27/16 11:13 10/27/16 11:13 10/27/16 11:13 Intake & Output 10/26/16 10/27/16 10/28/16 06:59 06:59 06:59 Intake Total 318 Output Total 1950 Balance -1632 Weight 135.624 kg General appearance: PRESENT: no acute distress, morbidly obese Head exam: PRESENT: atraumatic, normocephalic Eye exam: PRESENT: conjunctiva pink, EOMI, PERRLA Ear exam: PRESENT: normal external ear exam Mouth exam: PRESENT: moist, tongue midline Neck exam: PRESENT: full ROM Respiratory exam: PRESENT: rhonchi Cardiovascular exam: PRESENT: +S1, +S2 Vascular exam: PRESENT: normal capillary refill GI/Abdominal exam: PRESENT: normal bowel sounds, soft Rectal exam: PRESENT: deferred Neurological exam: PRESENT: alert, awake, oriented to person, oriented to place , oriented to time, oriented to situation, CN II-XII grossly intact Psychiatric exam: PRESENT: appropriate affect, normal mood Skin exam: PRESENT: dry, intact, warm Results Laboratory Results: 10/26/16 15:40 10/26/16 15:40 10/26/16 10/26/16 10/26/16 15:40 15:40 15:40 WBC 6.4 RBC 5.45 Hgb 13.9 Hct 43.7 MCV 80 MCH 25.5 L MCHC 31.8 L RDW 16.9 H Plt Count 100 L Sodium 144.8 Potassium 4.0 Chloride 107 Carbon Dioxide 28 Anion Gap 10 BUN 15 Creatinine 1.17 Est GFR ( Amer) > 60 Est GFR (Non-Af Amer) > 60 Glucose 117 H Calcium 9.2 Iron 31.4 L TIBC 402 % Saturation 8 Ferritin 10.80 L Total Bilirubin 0.5 AST 23 ALT 38 Alkaline Phosphatase 86 Total Protein 6.7 Albumin 3.6 TSH 0.68 Free T4 0.94 Urine Color Urine Appearance Urine pH Ur Specific [place] Urine Protein Urine Glucose (UA) Urine Ketones Urine Blood Urine Nitrite Ur Leukocyte Esterase Urine WBC (Auto) 10/26/16 22:02 WBC RBC Hgb Hct MCV MCH MCHC RDW Plt Count Sodium Potassium Chloride Carbon Dioxide Anion Gap BUN Creatinine Est GFR ( Amer) Est GFR (Non-Af Amer) Glucose Calcium Iron TIBC % Saturation Ferritin Total Bilirubin AST ALT Alkaline Phosphatase Total Protein Albumin TSH Free T4 Urine Color YELLOW Urine Appearance CLEAR Urine pH 5.0 Ur Specific [place] 1.012 Urine Protein NEGATIVE Urine Glucose (UA) NEGATIVE Urine Ketones NEGATIVE Urine Blood NEGATIVE Urine Nitrite NEGATIVE Ur Leukocyte Esterase NEGATIVE Urine WBC (Auto) 0 Assessment & Plan - Diagnosis (1) CAD (coronary artery disease) Qualifiers: Coronary Disease-Associated Artery/Lesion type: [place] artery [place] vs. transplanted heart: [place] heart Associated angina: without angina Qualified Code(s): I25.10 - Atherosclerotic heart disease of [place] coronary artery without angina pectoris Is this a current diagnosis for this admission?: Yes (2) COPD (chronic obstructive pulmonary disease) Qualifiers: COPD type: unspecified COPD Qualified Code(s): J44.9 - Chronic obstructive pulmonary disease, unspecified Is this a current diagnosis for this admission?: Yes
--- NOTE | 2016-10-27 12:51 | PDOC DISCHARGE SUMMARY ---
General - Admit/Disc Date/PCP Admission Date/Primary Care Provider: 10/26/16 14:51 CARMEN GANT MD Discharge Date: 10/27/16 - Discharge Diagnosis (1) COPD (chronic obstructive pulmonary disease) Is this a current diagnosis for this admission?: Yes (2) CAD (coronary artery disease) Is this a current diagnosis for this admission?: Yes - Additional Information Discharge Diet: As Tolerated Discharge Activity: Activity As Tolerated Home Medications: Albuterol Sulfate [Proair HFA] 2 puff IH Q4HP PRN 10/26/16 Aripiprazole [Abilify 30 MG Tablet] 30 mg PO DAILY 10/26/16 Benztropine Mesylate [Benztropine Mesylate 2 mg Tablet] 2 mg PO Q12 10/26/16 Budesonide/Formoterol Fumarate [Symbicort HFA 160-4.5 mcg Inhaler 6 gm] 2 puff IH Q12 10/26/16 Clonazepam [Klonopin 1 mg Tablet] 1 mg PO Q12 10/26/16 Dabigatran Etexilate Mesylate [Pradaxa 150 mg Capsule] 150 mg PO Q12 10/26/16 Dofetilide [Tikosyn 500 Mcg Capsule] 500 mcg PO Q12 10/26/16 Doxepin HCl [Silenor] 6 mg PO QHS 10/26/16 Finasteride [Proscar 5 mg Tablet] 5 mg PO DAILY 10/26/16 Fluticasone Propionate [Flonase Nasal [place] 50 Mcg/[place] 16 gm] 1 spray NASL DAILY 10/26/16 Furosemide [Lasix 20 mg Tablet] 20 mg PO QAM 10/26/16 Lisinopril [Zestril] 10 mg PO DAILY 10/26/16 Methocarbamol [Robaxin 500 mg Tablet] 500 mg PO Q12 10/26/16 Metoprolol Tartrate [Lopressor] 50 mg PO Q12 10/26/16 Paroxetine HCl [Paxil 20 mg Tablet] 30 mg PO QAM 10/26/16 Potassium Chloride [K-Tab ER] 10 meq PO DAILY 10/26/16 History of Present Illness History of Present Illness: KRISH RAMOS JR is a 61 year old male, he has a history of obesity, BMI 48 , chronic atrial fibrillation, chronic bronchitis. He came to the office because he said he was referred from the [place] clinic to come to the office to see me because of abnormal lab data. He stated that he had blood work done in the [place] clinic and he was found to have a low hemoglobin. He did not have the lab results with him, it was Saturday evening, patient spouse stated that it is best to admit him to the hospital for evaluation due to the fact that they were advised in the [place] clinic that he has a low hemoglobin. He was admitted directly from the office to the hospital, but the hemogram that was done in this hospital was normal, the comprehensive metabolic panel was normal. There is no evidence of anemia based on the blood work that was done in this hospital Hospital Course Hospital Course: Patient was admitted because it was felt that he has a low hemoglobin based on lab work that was done in the [place] clinic. But the blood test, hemogram that was done in this hospital was normal. He has COPD, is not overly wheezing but he has rhonchi on auscultation of his chest Physical Exam Vital Signs: Temp Pulse Resp BP Pulse Ox 98.2 F 70 22 H 152/88 H 96 10/27/16 11:13 10/27/16 11:13 10/27/16 11:13 10/27/16 11:13 10/27/16 11:13 Intake & Output 10/26/16 10/27/16 10/28/16 06:59 06:59 06:59 Intake Total 318 Output Total 1950 Balance -1632 Weight 135.624 kg General appearance: PRESENT: no acute distress Head exam: PRESENT: atraumatic, normocephalic Eye exam: PRESENT: conjunctiva pink, EOMI, PERRLA Neck exam: PRESENT: full ROM Respiratory exam: PRESENT: clear to auscultation martita Cardiovascular exam: PRESENT: RRR, +S1, +S2 Vascular exam: PRESENT: normal capillary refill GI/Abdominal exam: PRESENT: normal bowel sounds, soft Rectal exam: PRESENT: deferred Neurological exam: PRESENT: alert, awake, oriented to person, oriented to place , oriented to time, oriented to situation, CN II-XII grossly intact Psychiatric exam: PRESENT: appropriate affect, normal mood Skin exam: PRESENT: dry, intact, warm Results Laboratory Results: 10/26/16 15:40 10/26/16 15:40 10/26/16 10/26/1617 15:40 15:40 15:40 WBC 6.4 RBC 5.45 Hgb 13.9 Hct 43.7 MCV 80 MCH 25.5 L MCHC 31.8 L RDW 16.9 H Plt Count 100 L Sodium 144.8 Potassium 4.0 Chloride 107 Carbon Dioxide 28 Anion Gap 10 BUN 15 Creatinine 1.17 Est GFR ( Amer) > 60 Est GFR (Non-Af Amer) > 60 Glucose 117 H Calcium 9.2 Iron 31.4 L TIBC 402 % Saturation 8 Ferritin 10.80 L Total Bilirubin 0.5 AST 23 ALT 38 Alkaline Phosphatase 86 Total Protein 6.7 Albumin 3.6 TSH 0.68 Free T4 0.94 Urine Color Urine Appearance Urine pH Ur Specific [place] Urine Protein Urine Glucose (UA) Urine Ketones Urine Blood Urine Nitrite Ur Leukocyte Esterase Urine WBC (Auto) 10/26/16 22:02 WBC RBC Hgb Hct MCV MCH MCHC RDW Plt Count Sodium Potassium Chloride Carbon Dioxide Anion Gap BUN Creatinine Est GFR ( Amer) Est GFR (Non-Af Amer) Glucose Calcium Iron TIBC % Saturation Ferritin Total Bilirubin AST ALT Alkaline Phosphatase Total Protein Albumin TSH Free T4 Urine Color YELLOW Urine Appearance CLEAR Urine pH 5.0 Ur Specific [place] 1.012 Urine Protein NEGATIVE Urine Glucose (UA) NEGATIVE Urine Ketones NEGATIVE Urine Blood NEGATIVE Urine Nitrite NEGATIVE Ur Leukocyte Esterase NEGATIVE Urine WBC (Auto) 0
[2016-10-27 13:14] VITALS: BP 146/93
== END 2016-10-27 13:58 | disposition home or self-care (01) ==
LOC: 5 14:51
PROVIDERS: ADMIT Internal Medicine; ATTEND Internal Medicine
DX: J44.9 Chronic obstructive pulmonary disease, unspecified (principal); I25.10 Atherosclerotic heart disease of native coronary artery without angina pectoris; E66.9 Obesity, unspecified; I48.2 Chronic atrial fibrillation; I10 Essential (primary) hypertension; I25.2 Old myocardial infarction; I73.9 Peripheral vascular disease, unspecified; I42.9 Cardiomyopathy, unspecified; Z68.42 Body mass index [BMI] 45.0-49.9, adult; Z79.899 Other long term (current) drug therapy; Z79.02 Long term (current) use of antithrombotics/antiplatelets; Z95.810 Presence of automatic (implantable) cardiac defibrillator; Z87.01 Personal history of pneumonia (recurrent); Z82.49 Family history of ischemic heart disease and other diseases of the circulatory system; Z79.51 Long term (current) use of inhaled steroids; Z86.73 Personal history of transient ischemic attack (TIA), and cerebral infarction without residual deficits; Z86.2 Personal history of diseases of the blood and blood-forming organs and certain disorders involving the immune mechanism
CPT/HCPCS: 36415; 84439; 82728; 83540; 83550; 84443; 85027; 80076; 80048; 81001; G0378 ×2; G0379; J3490 ×4

== ENCOUNTER 2016-10-31 03:37 | Emergency (ER) | payer OTHER, MEDICARE ==
[2016-10-31 04:15] LABS: ABSOLUTE EOSINOPHILS # (AUTO) 0.3 10^3/uL (0.0-0.6); ABSOLUTE LYMPHOCYTES (AUTO) 2.1 10^3/uL (0.5-4.7); ABSOLUTE MONOCYTES (AUTO) 0.6 10^3/uL (0.1-1.4); ABSOLUTE NEUT (AUTO) 2.4 10^3/uL (1.7-8.2); BASOPHILS % (AUTO) 0.5 % (0-2); EOSINOPHILS % (AUTO) 4.8 % (0-6); HEMATOCRIT 43.6 % (37.9-51.0); HEMOGLOBIN 13.8 g/dL (13.5-17.0); HGB HCT DIFFERENCE -2.2; LYMPHOCYTES % (AUTO) 39.5 % (13-45); MEAN CORPUSCULAR HEMOGLOBIN 25.4 pg (27.0-33.4); MEAN CORPUSCULAR HGB CONC 31.7 g/dL (32.0-36.0); MEAN CORPUSCULAR VOLUME 80 fl (80-97); MONOCYTES % (AUTO) 11.1 % (3-13); RED BLOOD COUNT 5.45 10^6/uL (4.35-5.55); RED CELL DISTRIBUTION WIDTH 16.7 % (11.5-14.0); SEGMENTED NEUTROPHILS % (AUTO) 44.1 % (42-78); WHITE BLOOD COUNT 5.4 10^3/uL (4.0-10.5)
[2016-10-31 04:25] LABS: ALANINE AMINOTRANSFERASE 29 U/L (21-72); ALBUMIN 3.5 g/dL (3.5-5.0); ALKALINE PHOSPHATASE 84 U/L (38-126); ANION GAP 7 (5-19); ASPARTATE AMINO TRANSFERASE 18 U/L (17-59); BILIRUBIN,DIRECT 0.2 mg/dL (0.0-0.4); BILIRUBIN,TOTAL 0.5 mg/dL (0.2-1.3); BLOOD UREA NITROGEN 14 mg/dL (7-20); CALCIUM 8.9 mg/dL (8.4-10.2); CARBON DIOXIDE 30 mmol/L (22-30); CHLORIDE 107 mmol/L (98-107); CREATINE KINASE 200 U/L (55-170); CREATININE RESULT 1.26 mg/dL (0.52-1.25); GLUCOSE 112 mg/dL (75-110); POTASSIUM 4.2 mmol/L (3.6-5.0); SODIUM 143.6 mmol/L (137-145); TOTAL PROTEIN 6.7 g/dL (6.3-8.2)
--- NOTE | 2016-10-31 04:28 | RADIOLOGY REPORT (SQ) ---
EXAM DESCRIPTION: CHEST SINGLE VIEW COMPLETED DATE/TIME: 10/31/2016 4:08 am REASON FOR STUDY: CP COMPARISON: 07/29/2016. EXAM PARAMETERS: NUMBER OF VIEWS: One view. TECHNIQUE: Single frontal radiographic view of the chest acquired. RADIATION DOSE: NA LIMITATIONS: None. FINDINGS: LUNGS AND PLEURA: No opacities, masses or pneumothorax. No pleural effusion. MEDIASTINUM AND HILAR STRUCTURES: No masses. Contour normal. HEART AND VASCULAR STRUCTURES: Heart normal in size. Normal vasculature. BONES: No acute findings. HARDWARE: Left cardiac stimulation device and leads. OTHER: No other significant finding. IMPRESSION: NO ACUTE RADIOGRAPHIC FINDING IN THE CHEST. TECHNICAL DOCUMENTATION: JOB ID: [id number]
[2016-10-31 04:36] LABS: CREATINE KINASE MB 1.02 ng/mL (<4.55)
[2016-10-31 04:41] LABS: TROPONIN I < 0.012 ng/mL
[2016-10-31] MEDS ORDERED: MORPHINE SULFATE 10 MG/ML INJ IV ONE (05:03)
[2016-10-31] MEDS ORDERED: NITROGLYCERIN 2% OINTMENT 1 GM PACKET TP ONE (05:04)
--- NOTE | 2016-10-31 06:37 | ER Document Report ---
ED General <RONALD GONZALEZ - Last Filed: 10/31/16 08:45> - General Mode of Arrival: Medic Information source: Patient, Emergency Med Personnel TRAVEL OUTSIDE OF THE [place] IN LAST 30 DAYS: No <CHELLE ARCINIEGA - Last Filed: 11/02/16 06:26> - General Chief Complaint: Chest Pain Stated Complaint: CHEST PAIN Time Seen by Provider: 10/31/16 04:33 - HPI Notes: 61-year-old male presents to the emergency department with report of chest pain onset early this morning with no nausea or significant dyspnea or cough. Patient has a history of recurrent episodes of chest pain, and has a pacemaker. Patient denies any fever or significant belching. No recent medication changes. 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 He describes the pain is midsternal without significant radiation. No back pain. (CHELLE ARCINIEGA) - Related Data Allergies/Adverse Reactions: latex [Latex] Allergy (Severe, Verified 05/31/16 15:43) WHITTAKER SKIN Past Medical History - General Information source: Patient - Social History Smoking Status: Former Smoker Frequency of alcohol use: None Drug Abuse: None Lives with: Family Family History: Arthritis, CAD, CVA, DM, Hyperlipidemia, Hypertension, Malignancy - Past Medical History Cardiac Medical History: Reports: Hx Atrial Fibrillation, Hx Heart Attack, Hx Hypercholesterolemia, Hx Hypertension, Hx Peripheral Vascular Disease Pulmonary Medical History: Reports: Hx Asthma, Hx Bronchitis, Hx COPD, Hx Pneumonia - X2, Hx Sleep Apnea Neurological Medical History: Reports: Hx Cerebrovascular Accident Renal/ Medical History: Reports: Hx Benign Prostatic Hyperplasia, Hx Kidney Stones GI Medical History: Reports: Hx Gastroesophageal Reflux Disease, Hx Hiatal Hernia Musculoskeltal Medical History: Reports Hx Arthritis, Reports Hx Musculoskeletal Trauma Psychiatric Medical History: Reports: Hx Depression, Hx Post Traumatic Stress Disorder, Hx Schizoaffective Disorder, Hx Schizophrenia Traumatic Medical History: Reports: Hx Fractures - Left foot Past Surgical History: Reports: Hx Cardiac Surgery - defib, Hx Herniorrhaphy, Hx Pacemaker - Pacemaker defibrillator, Hx Urinary Tract Surgery - prostate. testicle 6-3-14 - Immunizations Immunizations up to date: Yes Hx Diphtheria, Pertussis, Tetanus Vaccination: No Hx Pneumococcal Vaccination: 06/03/10 <CHELLE ARCINIEGA - Last Filed: 11/02/16 06:26> Review of Systems <RONALD GONZALEZ - Last Filed: 10/31/16 08:45> <CHELLE ARCINIEGA - Last Filed: 11/02/16 06:26> - Review of Systems Notes: REVIEW OF SYSTEMS: CONSTITUTIONAL : Denies fever, chills, or sweats. Denies recent illness. EENT: Denies eye, ear, throat, or mouth pain or symptoms. Denies nasal or sinus congestion or discharge. Denies throat, tongue, or mouth swelling or difficulty swallowing. CARDIOVASCULAR: Denies palpitations or racing or irregular heart beat. Denies ankle edema. RESPIRATORY: Denies cough, cold, or chest congestion. Denies shortness of breath, difficulty breathing, or wheezing. GASTROINTESTINAL: Denies abdominal pain or distention. Denies nausea, vomiting , or diarrhea. Denies blood in vomitus, stools, or per rectum. Denies black, tarry stools. Denies constipation. GENITOURINARY: Denies difficulty urinating, painful urination, burning, frequency, blood in urine, or discharge. MUSCULOSKELETAL: Denies back or neck pain or stiffness. Denies joint pain or swelling. SKIN: Denies rash, lesions or sores. HEMATOLOGIC : Denies easy bruising or bleeding. LYMPHATIC: Denies swollen, enlarged glands. NEUROLOGICAL: Denies confusion or altered mental status. Denies passing out or loss of consciousness. Denies dizziness or lightheadedness. Denies headache. Denies weakness or paralysis or loss of use of either side. Denies problems with gait or speech. Denies sensory loss, numbness, or tingling. Denies seizures. PSYCHIATRIC: Denies anxiety or stress. Denies depression, suicidal ideation, or homicidal ideation. ALL OTHER SYSTEMS REVIEWED AND NEGATIVE. Dictation was performed using [email or web address] voice recognition software (CHELLE ARCINIEGA) Physical Exam <LISAERGGIE PurvisRONADL - Last Filed: 10/31/16 08:45> <CHELLE ARCINIEGA - Last Filed: 11/02/16 06:26> - Vital signs Vitals: Resp BP 22 H 133/79 H 10/31/16 03:41 10/31/16 03:41 - Notes Notes: PHYSICAL EXAMINATION: GENERAL: Well-appearing, well-nourished and in no acute distress. Patient initially was sleeping on my evaluation. HEAD: Atraumatic, normocephalic. EYES: Pupils equal round and reactive to light, extraocular movements intact, sclera anicteric, conjunctiva are normal. ENT: Nares patent, oropharynx clear without exudates. Moist mucous membranes. NECK: Normal range of motion, supple without lymphadenopathy LUNGS: Breath sounds clear to auscultation bilaterally and equal. No wheezes rales or rhonchi. HEART: Regular rate and rhythm with a 1/6 systolic ejection murmur best auscultated at the apex. Minimal reproducible chest wall pain on palpation. Pacemaker left upper chest site appears clear. ABDOMEN: Soft, nontender, nondistended abdomen. No guarding, no rebound. No masses appreciated. Obese Musculoskeletal: Normal range of motion, no pitting or edema. No cyanosis. NEUROLOGICAL: Cranial nerves grossly intact. Normal speech, normal gait. Normal sensory, motor exams PSYCH: Normal mood, normal affect. SKIN: Warm, Dry, normal turgor, no rashes or lesions noted. (CHELLE ARCINIEGA) Course - Laboratory Result Diagrams: 10/31/16 03:45 10/31/16 03:45 <RONALD GONZALEZ - Last Filed: 10/31/16 08:45> - Laboratory Result Diagrams: 10/31/16 03:45 10/31/16 03:45 <CHELLE ARCINIEGA - Last Filed: 11/02/16 06:26> - Re-evaluation Re-evalutation: 11/02/16 06:25 Initial troponin negative. If repeat troponin is negative, would consider outpatient cardiology follow-up and management. No electrolyte imbalance, congestive heart failure, anemia, GI bleed, renal insufficiency, pneumonia, or suggestion for pulmonary embolus. (CHELLE ARCINIEGA) - Vital Signs Vital signs: Temp Pulse Resp BP Pulse Ox 97.6 F 66 18 145/94 H 99 10/31/16 09:26 10/31/16 09:26 10/31/16 09:26 10/31/16 09:26 10/31/16 09:26 - Laboratory Laboratory results interpreted by me: 10/31/16 10/31/16 03:45 03:45 MCH 25.4 L MCHC 31.7 L RDW 16.7 H Plt Count 101 L Creatinine 1.26 H Est GFR (Non-Af Amer) 58 L Glucose 112 H Creatine Kinase 200 H - EKG Interpretation by Me Additional EKG results interpreted by me: 11/02/16 06:25 EKG as interpreted by me showed paced rhythm rate 70, no gross evidence for acute ID or ischemia. No significant change from previous EKG. (CHELLE ARCINIEGA ) Discharge <RONALD GONZALEZ - Last Filed: 10/31/16 08:45> <CHELLE ARCINIEGA - Last Filed: 11/02/16 06:26> - Discharge Clinical Impression: Chest wall pain Condition: Stable Disposition: HOME, SELF-CARE Additional Instructions: Chest Pain of Unclear Cause The exact cause of your chest pain isn't clear. Fortunately, there is no evidence of a dangerous medical condition. Further testing may be required to find the source of the pain. Most often, we find that this pain is coming from the chest wall -- the muscles or rib joints in the chest. But chest pain can come from the lung and lung lining, the esophagus, the heart valves or heart lining, and even the stomach or gallbladder. Rest. Eat lightly until the pain is gone. We may prescribe medicine for pain and inflammation. You should call the physician immediately if the pain radiates to the shoulder, jaw or arms; if you start to run a fever or develop a cough; or if you develop shortness of breath, or other new or alarming symptoms. FOLLOW UP WITH DR. GANT THIS WEEK FOR RECHECK. RETURN TO THE EMERGENCY ROOM IF ANY NEW OR WORSENING SYMPTOMS. Referrals: CARMEN GANT MD [Primary Care Provider] - Follow up in 3-5 days
--- NOTE | 2016-10-31 08:45 | ER Document Report ---
Doctor's Note Notes: 10/31/16 08:42 61-year-old patient with left to me at shift change about 6:30 AM this morning. He had complained of onset of left anterior chest pain about 10 PM which lasted throughout the night. EKG done on arrival while he was in the pain does not show any acute change. He was seen here about 5:30 AM, at which time he received 2 mg of morphine IV and nitroglycerin paste blood pressure was not elevated. And was done at 6 hours and 9 hours after onset of pain are undetectable. I went into check on the patient, found him sound asleep and snoring. He was awakened for re-exam, he states the pain is coming back on. Palpating the left anterior chest wall reproduces the pain.
[2016-10-31 09:50] VITALS: BP 145/94
--- NOTE | 2016-10-31 10:29 | EKG REPORT ---
SEVERITY:- ABNORMAL ECG - SINUS RHYTHM LEFT VENTRICULAR HYPERTROPHY BORDERLINE T ABNORMALITIES, INFERIOR LEADS : Confirmed by: Juan Swan 31-Oct-2016 10:29:36
== END 2016-10-31 09:30 | disposition home or self-care (01) ==
LOC: ER 03:37
DX: R07.89 Other chest pain (principal); I48.91 Unspecified atrial fibrillation; I25.2 Old myocardial infarction; I10 Essential (primary) hypertension; J44.9 Chronic obstructive pulmonary disease, unspecified; Z87.01 Personal history of pneumonia (recurrent); Z95.810 Presence of automatic (implantable) cardiac defibrillator; Z91.040 Latex allergy status; Z86.73 Personal history of transient ischemic attack (TIA), and cerebral infarction without residual deficits
CPT/HCPCS: 93005; 99285; 36415; 82553; 82550; 85025; 80053; 84484; 71010; 93010; J2270

== ENCOUNTER 2016-11-01 03:46 | Emergency (ER) | payer OTHER, MEDICARE ==
[2016-11-01] MEDS ORDERED: ASPIRIN 81 MG TABLET, CHEWABLE PO ONE (03:59)
[2016-11-01 04:55] LABS: ABSOLUTE EOSINOPHILS # (AUTO) 0.3 10^3/uL (0.0-0.6); ABSOLUTE LYMPHOCYTES (AUTO) 1.8 10^3/uL (0.5-4.7); ABSOLUTE MONOCYTES (AUTO) 0.6 10^3/uL (0.1-1.4); BASOPHILS % (AUTO) 0.4 % (0-2); EOSINOPHILS % (AUTO) 4.7 % (0-6); HEMATOCRIT 43.7 % (37.9-51.0); HEMOGLOBIN 13.9 g/dL (13.5-17.0); LYMPHOCYTES % (AUTO) 31.7 % (13-45); MEAN CORPUSCULAR HEMOGLOBIN 25.9 pg (27.0-33.4); MEAN CORPUSCULAR HGB CONC 31.7 g/dL (32.0-36.0); MEAN CORPUSCULAR VOLUME 82 fl (80-97); MONOCYTES % (AUTO) 9.9 % (3-13); RED BLOOD COUNT 5.36 10^6/uL (4.35-5.55); RED CELL DISTRIBUTION WIDTH 16.7 % (11.5-14.0); SEGMENTED NEUTROPHILS % (AUTO) 53.3 % (42-78); WHITE BLOOD COUNT 5.7 10^3/uL (4.0-10.5)
--- NOTE | 2016-11-01 05:18 | ER Document Report ---
ED Medical Screen (RME) - General Chief Complaint: Chest Tightness Stated Complaint: LEFT SIDE MUSCLE SPASM TRAVEL OUTSIDE OF THE [place] IN LAST 30 DAYS: No - HPI Notes: 11/01/16 05:17 Patient coming in for reevaluation of his chest pain ongoing since discharge yesterday currently patient alert awake oriented EKG does not show any acute changes. Pain worse with movement and palpation. - Related Data Allergies/Adverse Reactions: latex [Latex] Allergy (Severe, Verified 05/31/16 15:43) WHITTAKER SKIN Past Medical History - Social History Chew tobacco use (# tins/day): No Frequency of alcohol use: None Drug Abuse: None - Past Medical History Cardiac Medical History: Reports: Hx Atrial Fibrillation, Hx Heart Attack, Hx Hypercholesterolemia, Hx Hypertension, Hx Peripheral Vascular Disease Pulmonary Medical History: Reports: Hx Asthma, Hx Bronchitis, Hx COPD, Hx Pneumonia - X2, Hx Sleep Apnea Neurological Medical History: Reports: Hx Cerebrovascular Accident Renal/ Medical History: Reports: Hx Benign Prostatic Hyperplasia, Hx Kidney Stones. Denies: Hx Peritoneal Dialysis GI Medical History: Reports: Hx Gastroesophageal Reflux Disease, Hx Hiatal Hernia Musculoskeltal Medical History: Reports Hx Arthritis, Reports Hx Musculoskeletal Trauma Psychiatric Medical History: Reports: Hx Depression, Hx Post Traumatic Stress Disorder, Hx Schizoaffective Disorder, Hx Schizophrenia Traumatic Medical History: Reports: Hx Fractures - Left foot Past Surgical History: Reports: Hx Cardiac Surgery - defib, Hx Herniorrhaphy, Hx Pacemaker - Pacemaker defibrillator, Hx Urinary Tract Surgery - prostate. testicle 6-3-14 - Immunizations Immunizations up to date: Yes Hx Diphtheria, Pertussis, Tetanus Vaccination: No Review of Systems - Review of Systems Cardiovascular: Chest pain Physical Exam - Vital signs Vitals: Temp Pulse Resp BP Pulse Ox 97.7 F 70 20 150/92 H 95 11/01/16 03:51 11/01/16 03:51 11/01/16 03:51 11/01/16 03:51 11/01/16 03:51 - Cardiovascular Rhythm: Regular Heart sounds: Normal auscultation Course - Vital Signs Vital signs: Temp Pulse Resp BP Pulse Ox 97.7 F 70 19 159/91 H 91 L 11/01/16 03:51 11/01/16 03:51 11/01/16 04:14 11/01/16 04:14 11/01/16 04:44 - Laboratory Result Diagrams: 11/01/16 04:30 11/01/16 04:30 Laboratory results interpreted by me: 11/01/16 04:30 MCH 25.9 L MCHC 31.7 L RDW 16.7 H Plt Count 107 L
[2016-11-01] MEDS ORDERED: LIDOCAINE 5% (700 MG) TRANSDERMAL ADH..PATCH TP ONE (05:21)
[2016-11-01 05:22] LABS: ALANINE AMINOTRANSFERASE 35 U/L (21-72); ALBUMIN 3.5 g/dL (3.5-5.0); ALKALINE PHOSPHATASE 84 U/L (38-126); ANION GAP 11 (5-19); ASPARTATE AMINO TRANSFERASE 24 U/L (17-59); BILIRUBIN,DIRECT 0.3 mg/dL (0.0-0.4); BILIRUBIN,TOTAL 0.4 mg/dL (0.2-1.3); BLOOD UREA NITROGEN 15 mg/dL (7-20); CALCIUM 9.1 mg/dL (8.4-10.2); CARBON DIOXIDE 29 mmol/L (22-30); CHLORIDE 107 mmol/L (98-107); CREATINE KINASE 418 U/L (55-170); GLUCOSE 125 mg/dL (75-110); POTASSIUM 4.2 mmol/L (3.6-5.0); SODIUM 146.5 mmol/L (137-145); TOTAL PROTEIN 6.8 g/dL (6.3-8.2)
[2016-11-01 05:33] LABS: CREATINE KINASE MB 2.39 ng/mL (<4.55)
[2016-11-01 05:41] LABS: TROPONIN I < 0.012 ng/mL
--- NOTE | 2016-11-01 06:26 | ER Document Report ---
ED General <RONALD GONZALEZ - Last Filed: 11/01/16 06:59> - General Mode of Arrival: Ambulatory Information source: Patient TRAVEL OUTSIDE OF THE [place] IN LAST 30 DAYS: No - HPI Onset: Other - Refer to HPI notes Associated symptoms: Chest pain Similar symptoms previously: Yes Recently seen / treated by doctor: Yes <LYDIA LEON - Last Filed: 11/01/16 07:27> - General Chief Complaint: Chest Tightness Stated Complaint: LEFT SIDE MUSCLE SPASM Time Seen by Provider: 11/01/16 06:07 Notes: Patient is a 61 year old male presenting to the emergency department for chest pain to his left anterior chest wall. Patient was evaluated for the same chest pain at [facility] emergency department yesterday as well. Patient was discharged after a full cardiac workup. Patient states he gets chest pain and it will go away if he gets morphine. Patient states he has spasms in his chest. Patient's pain is worse with movement. Patient has a history of CVA x2, [place], A-fib, CAD, GERD, Hypertension, Hypercholesterolemia, and a pacemaker. (LYDIA LEON) - Related Data Allergies/Adverse Reactions: latex [Latex] Allergy (Severe, Verified 05/31/16 15:43) WHITTAKER SKIN Past Medical History - General Information source: Patient - Social History Smoking Status: Never Smoker Cigarette use (# per day): No Chew tobacco use (# tins/day): No Frequency of alcohol use: None Drug Abuse: None Family History: Arthritis, CAD, CVA, DM, Hyperlipidemia, Hypertension, Malignancy Patient has suicidal ideation: No Patient has homicidal ideation: No - Past Medical History Cardiac Medical History: Reports: Hx Atrial Fibrillation, Hx Coronary Artery Disease, Hx Heart Attack, Hx Hypercholesterolemia, Hx Hypertension, Hx Peripheral Vascular Disease Pulmonary Medical History: Reports: Hx Asthma, Hx Bronchitis, Hx COPD, Hx Pneumonia - X2, Hx Sleep Apnea Neurological Medical History: Reports: Hx Cerebrovascular Accident Renal/ Medical History: Reports: Hx Benign Prostatic Hyperplasia, Hx Kidney Stones GI Medical History: Reports: Hx Gastroesophageal Reflux Disease, Hx Hiatal Hernia Musculoskeltal Medical History: Reports Hx Arthritis, Reports Hx Musculoskeletal Trauma Psychiatric Medical History: Reports: Hx Depression, Hx Post Traumatic Stress Disorder, Hx Schizoaffective Disorder, Hx Schizophrenia Traumatic Medical History: Reports: Hx Fractures - Left foot Past Surgical History: Reports: Hx Cardiac Surgery - defib, Hx Herniorrhaphy, Hx Pacemaker - Pacemaker defibrillator, Hx Urinary Tract Surgery - prostate. testicle 6-3-14 - Immunizations Immunizations up to date: Yes Hx Diphtheria, Pertussis, Tetanus Vaccination: No Hx Pneumococcal Vaccination: 06/03/10 <LYDIA LEON - Last Filed: 11/01/16 07:27> Review of Systems - Review of Systems Constitutional: No symptoms reported EENT: No symptoms reported Cardiovascular: See HPI Respiratory: No symptoms reported Gastrointestinal: No symptoms reported Genitourinary: No symptoms reported Male Genitourinary: No symptoms reported Musculoskeletal: No symptoms reported Skin: No symptoms reported Hematologic/Lymphatic: No symptoms reported Neurological/Psychological: No symptoms reported -: Yes All other systems reviewed and negative <JUANLUISLYDIA - Last Filed: 11/01/16 07:27> Physical Exam - HEENT Head: Normocephalic, Atraumatic Eyes: Normal Pupils: PERRL Neck: Normal. No: Carotid bruit - Respiratory Respiratory status: No respiratory distress Chest status: Tender Breath sounds: Normal Chest palpation: Tender - Left anterior chest wall and trapezius muscle region are tender to palpate - Cardiovascular Rhythm: Regular Heart sounds: Normal auscultation Murmur: No - Abdominal Inspection: Obese Bowel sounds: Normal Tenderness: Nontender - Back Back: Normal - Extremities General upper extremity: Normal inspection General lower extremity: Normal inspection - Neurological Neuro grossly intact: Yes - Psychological Associated symptoms: Normal affect, Normal mood - Skin Skin Temperature: Warm Skin Moisture: Dry Skin Color: Normal <RONALD GONZALEZ - Last Filed: 11/01/16 06:59> - Vital signs Interpretation: Normal <JUANLUISLYDIA - Last Filed: 11/01/16 07:27> - Vital signs Vitals: Temp Pulse Resp BP Pulse Ox 97.7 F 70 20 150/92 H 95 11/01/16 03:51 11/01/16 03:51 11/01/16 03:51 11/01/16 03:51 11/01/16 03:51 Course - Laboratory Result Diagrams: 11/01/16 04:30 11/01/16 04:30 - Diagnostic Test Radiology reviewed: Image reviewed, Reports reviewed - Mild basilar atelectasis , no other acute findings - EKG Interpretation by Vt EKG shows normal: Sinus rhythm, [place], Intervals, QRS Complexes. abnormal: ST-T Waves - Inferior nonspecific T abnormalities Rate: Normal - 62 Rhythm: NSR Voltage: Consistant with LVH When compared to previous EKG there are: No significant change <RONALD GONZALEZ - Last Filed: 11/01/16 06:59> - Laboratory Result Diagrams: 11/01/16 04:30 11/01/16 04:30 <LYDIA LEON - Last Filed: 11/01/16 07:27> - Re-evaluation Re-evalutation: 11/01/16 07:00 The patient was here yesterday morning about the same time for the same complaints with the same findings. Similarly requesting his dose of morphine for the spasms in his chest. Troponins continued to be negative. EKG does not show acute changes. He is encouraged to follow-up with his primary care provider to manage this recurring chest wall discomfort. (RONALD GONZALEZ) - Vital Signs Vital signs: Temp Pulse Resp BP Pulse Ox 97.7 F 70 22 H 154/91 H 93 11/01/16 03:51 11/01/16 03:51 11/01/16 06:01 11/01/16 06:01 11/01/16 06:01 - Laboratory Laboratory results interpreted by me: 11/01/16 11/01/16 04:30 04:30 MCH 25.9 L MCHC 31.7 L RDW 16.7 H Plt Count 107 L Sodium 146.5 H Glucose 125 H Creatine Kinase 418 H Discharge <RONALD GONZALEZ - Last Filed: 11/01/16 06:59> <LYDIA LEON - Last Filed: 11/01/16 07:27> - Discharge Clinical Impression: Chest wall pain Additional Instructions: Chest Wall Pain: Your chest pain has been diagnosed as coming from the chest wall. This is often caused by straining the muscles or joints in the chest during physical activity, direct trauma, coughing, or vigorous vomiting. Persons with arthritis are especially prone to this type of pain, due to inflammation of the cartilage joints near the breast bone. Occasionally, no cause can be found. Rest from strenuous physical activity. This kind of chest pain is usually made worse by movement of the chest. Depending on the symptoms, we may prescribe medicine for pain, muscle relaxation, and antiinflammatory effects. If the pain is new, and seems to be due to muscle strain, cold packs can help. Otherwise, apply gentle warmth to the painful area for 15 minutes every hour or two. You should contact the doctor immediately if things change. Further evaluation is needed if you develop a fever or cough, if the nature of the pain changes, or if you become short of breath. FOLLOW UP WITH DR. GANT THIS WEEK IN THE OFFICE TO DISCUSS MANAGING YOUR CHEST MUSCLE "SPASMS". RETURN TO THE EMERGENCY ROOM IF ANY NEW OR WORSENING SYMPTOMS. Referrals: CARMEN GANT MD [Primary Care Provider] - Follow up in 3-5 days Scribe Attestation: 11/01/16 07:02 I personally performed the services described in the documentation, reviewed and edited the documentation which was dictated to the scribe in my presence, and it accurately records my words and actions. (RONALD GONZALEZ) Scribe Documentation - Scribe Written by Richard:: Richard Ochoa, 11/01/16 7:07 acting as scribe for :: Johanna <LYDIA LEON - Last Filed: 11/01/16 07:27>
--- NOTE | 2016-11-01 06:28 | RADIOLOGY REPORT (SQ) ---
EXAM DESCRIPTION: CHEST SINGLE VIEW COMPLETED DATE/TIME: 11/01/2016 5:45 am REASON FOR STUDY: CHEST PAIN COMPARISON: Chest x-ray 10/31/2016, 03/09/2016. EXAM PARAMETERS: NUMBER OF VIEWS: One view. TECHNIQUE: Single frontal radiographic view of the chest acquired. RADIATION DOSE: NA LIMITATIONS: The left costophrenic angle is partially excluded from the [id number]. FINDINGS: LUNGS AND PLEURA: Mild right basilar atelectasis. No sizable pleural effusion or pneumoth orax. MEDIASTINUM AND HILAR STRUCTURES: No masses. Contour normal. HEART AND VASCULAR STRUCTURES: Heart is upper normal limit in size. No overt vascular congestion. BONES: No acute findings. HARDWARE: There is a left-sided pacemaker. IMPRESSION: Mild right basilar atelectasis. TECHNICAL DOCUMENTATION: JOB ID: [id number]
[2016-11-01] MEDS ORDERED: ONDANSETRON HCL INJ/PF 4 MG/2 ML SDV IV ONE (06:43)
[2016-11-01] MEDS ORDERED: MORPHINE SULFATE 10 MG/ML INJ IV ONE (06:43)
[2016-11-01 08:06] VITALS: BP 141/93
--- NOTE | 2016-11-02 09:54 | EKG REPORT ---
SEVERITY:- ABNORMAL ECG - SINUS RHYTHM PROBABLE LEFT VENTRICULAR HYPERTROPHY NONSPECIFIC T ABNORMALITIES, INFERIOR LEADS : Confirmed by: Juan Swan 02-Nov-2016 09:53:53
== END 2016-11-01 08:21 | disposition home or self-care (01) ==
LOC: ER 03:46
DX: R07.89 Other chest pain (principal); I48.91 Unspecified atrial fibrillation; I25.10 Atherosclerotic heart disease of native coronary artery without angina pectoris; I10 Essential (primary) hypertension; E78.00 Pure hypercholesterolemia, unspecified; K21.9 Gastro-esophageal reflux disease without esophagitis; Z91.040 Latex allergy status; Z86.73 Personal history of transient ischemic attack (TIA), and cerebral infarction without residual deficits; Z95.0 Presence of cardiac pacemaker; I25.2 Old myocardial infarction
CPT/HCPCS: 93005; 99284; 96374; 96375; 36415; 82553; 82550; 85025; 80053; 84484; 71010; 93010; J2270; J2405

== ENCOUNTER 2017-02-14 18:26 | Emergency (ER) | payer OTHER, MEDICARE ==
[2017-02-14] MEDS ORDERED: IPRATROPIUM/ALBUTEROL 0.5-2.5 MG/3 ML AMPUL NEB ONE ×2 (18:56→21:34)
[2017-02-14] MEDS ORDERED: METHYLPREDNISOLONE INJ 125 MG/2 ML SDV IV ONE (18:56)
--- NOTE | 2017-02-14 19:03 | ER Document Report ---
ED Medical Screen (RME) - General Chief Complaint: Breathing Difficulty Stated Complaint: DIFFICULTY BREATHING Time Seen by Provider: 02/14/17 18:56 Mode of Arrival: Wheelchair Information source: Patient TRAVEL OUTSIDE OF THE [place] IN LAST 30 DAYS: No - HPI Patient complains to provider of: sob Onset: Other - pt with h/o COPD/Asthma/bronchitis with c/o wheezing and SOB for the past few days with exacerbation today - Related Data Allergies/Adverse Reactions: latex [Latex] Allergy (Severe, Verified 02/14/17 18:39) WHITTAKER SKIN Past Medical History - Social History Chew tobacco use (# tins/day): No Frequency of alcohol use: None Drug Abuse: None - Past Medical History Cardiac Medical History: Reports: Hx Atrial Fibrillation, Hx Coronary Artery Disease, Hx Heart Attack, Hx Hypercholesterolemia, Hx Hypertension, Hx Peripheral Vascular Disease Pulmonary Medical History: Reports: Hx Asthma, Hx Bronchitis, Hx COPD, Hx Pneumonia - X2, Hx Sleep Apnea Neurological Medical History: Reports: Hx Cerebrovascular Accident Renal/ Medical History: Reports: Hx Benign Prostatic Hyperplasia, Hx Kidney Stones. Denies: Hx Peritoneal Dialysis GI Medical History: Reports: Hx Gastroesophageal Reflux Disease, Hx Hiatal Hernia Musculoskeltal Medical History: Reports Hx Arthritis, Reports Hx Musculoskeletal Trauma Psychiatric Medical History: Reports: Hx Depression, Hx Post Traumatic Stress Disorder, Hx Schizoaffective Disorder, Hx Schizophrenia Traumatic Medical History: Reports: Hx Fractures - Left foot Past Surgical History: Reports: Hx Cardiac Surgery - defib, Hx Herniorrhaphy, Hx Pacemaker - Pacemaker defibrillator, Hx Urinary Tract Surgery - prostate. testicle 6-3-14 - Immunizations Immunizations up to date: Yes Hx Diphtheria, Pertussis, Tetanus Vaccination: No Physical Exam - Vital signs Vitals: Temp Pulse Resp BP Pulse Ox 98.7 F 77 24 H 150/93 H 96 02/14/17 18:36 02/14/17 18:36 02/14/17 18:36 02/14/17 18:36 02/14/17 18:36 Course - Vital Signs Vital signs: Temp Pulse Resp BP Pulse Ox 98.7 F 77 24 H 150/93 H 96 02/14/17 18:36 02/14/17 18:36 02/14/17 18:36 02/14/17 18:36 02/14/17 18:36
[2017-02-14 19:52] LABS: ABSOLUTE EOSINOPHILS # (AUTO) 0.3 10^3/uL (0.0-0.6); ABSOLUTE LYMPHOCYTES (AUTO) 2.3 10^3/uL (0.5-4.7); ABSOLUTE MONOCYTES (AUTO) 0.8 10^3/uL (0.1-1.4); ABSOLUTE NEUT (AUTO) 2.9 10^3/uL (1.7-8.2); BASOPHILS % (AUTO) 0.3 % (0-2); EOSINOPHILS % (AUTO) 5.1 % (0-6); HEMATOCRIT 43.6 % (37.9-51.0); HEMOGLOBIN 14.2 g/dL (13.5-17.0); LYMPHOCYTES % (AUTO) 36.1 % (13-45); MEAN CORPUSCULAR HEMOGLOBIN 26.2 pg (27.0-33.4); MEAN CORPUSCULAR HGB CONC 32.6 g/dL (32.0-36.0); MEAN CORPUSCULAR VOLUME 80 fl (80-97); MONOCYTES % (AUTO) 12.2 % (3-13); RED BLOOD COUNT 5.43 10^6/uL (4.35-5.55); RED CELL DISTRIBUTION WIDTH 17.6 % (11.5-14.0); SEGMENTED NEUTROPHILS % (AUTO) 46.3 % (42-78); WHITE BLOOD COUNT 6.3 10^3/uL (4.0-10.5)
[2017-02-14 20:05] LABS: ALANINE AMINOTRANSFERASE 36 U/L (21-72); ALBUMIN 3.7 g/dL (3.5-5.0); ALKALINE PHOSPHATASE 84 U/L (38-126); ANION GAP 10 (5-19); ASPARTATE AMINO TRANSFERASE 22 U/L (17-59); BILIRUBIN,DIRECT 0.3 mg/dL (0.0-0.4); BILIRUBIN,TOTAL 0.5 mg/dL (0.2-1.3); BLOOD UREA NITROGEN 14 mg/dL (7-20); CALCIUM 9.1 mg/dL (8.4-10.2); CARBON DIOXIDE 29 mmol/L (22-30); CHLORIDE 104 mmol/L (98-107); GLUCOSE 90 mg/dL (75-110); POTASSIUM 3.9 mmol/L (3.6-5.0); SODIUM 142.9 mmol/L (137-145); TOTAL PROTEIN 6.8 g/dL (6.3-8.2)
--- NOTE | 2017-02-14 20:08 | RADIOLOGY REPORT (SQ) ---
EXAM DESCRIPTION: CHEST PA/LAT COMPLETED DATE/TIME: 02/14/2017 7:52 pm REASON FOR STUDY: SOB COMPARISON: 05/31/2016 EXAM PARAMETERS: NUMBER OF VIEWS: two views TECHNIQUE: Digital Frontal and Lateral radiographic views of the chest acquired. RADIATION DOSE: NA LIMITATIONS: none FINDINGS: LUNGS AND PLEURA: No opacities, masses or pneumothorax. No pleural effusion. MEDIASTINUM AND HILAR STRUCTURES: No masses or contour abnormalities. HEART AND VASCULAR STRUCTURES: Heart normal size. No evidence for failure. BONES: No acute findings. HARDWARE: Battery and leads are unchanged. OTHER: No other significant finding. IMPRESSION: NO SIGNIFICANT RADIOGRAPHIC FINDING IN THE CHEST. TECHNICAL DOCUMENTATION: JOB ID: [id number] [employer]- All Rights Reserved
--- NOTE | 2017-02-14 21:34 | ER Document Report ---
ED General - General Chief Complaint: Breathing Difficulty Stated Complaint: DIFFICULTY BREATHING Time Seen by Provider: 02/14/17 18:56 Mode of Arrival: Wheelchair Notes: Patient is a 61-year-old male with past muscular morbid obesity, hypertension, hyperlipidemia, COPD, who does present with approximately 1 week of progressive worsening cough without sputum production. He also notes an associated shortness of breath. He has been trying his home inhalers without any improvement of his symptoms. He has not seen his primary care doctor regarding today's concerns. He notes that exerting himself seems to worsen the shortness of breath and cough. Has a history of similar symptoms in the past with prior COPD exacerbations. He denies any chest pain, orthopnea, pleuritic pain, or syncope. No fever or constitutional symptoms. TRAVEL OUTSIDE OF THE [place] IN LAST 30 DAYS: No - Related Data Allergies/Adverse Reactions: latex [Latex] Allergy (Severe, Verified 02/14/17 18:39) WHITTAKER SKIN Past Medical History - General Information source: Patient - Social History Smoking Status: Former Smoker Chew tobacco use (# tins/day): No Frequency of alcohol use: None Drug Abuse: None Family History: Arthritis, CAD, CVA, DM, Hyperlipidemia, Hypertension, Malignancy - Past Medical History Cardiac Medical History: Reports: Hx Atrial Fibrillation, Hx Coronary Artery Disease, Hx Heart Attack, Hx Hypercholesterolemia, Hx Hypertension, Hx Peripheral Vascular Disease Pulmonary Medical History: Reports: Hx Asthma, Hx Bronchitis, Hx COPD, Hx Pneumonia - X2, Hx Sleep Apnea Neurological Medical History: Reports: Hx Cerebrovascular Accident Renal/ Medical History: Reports: Hx Benign Prostatic Hyperplasia, Hx Kidney Stones. Denies: Hx Peritoneal Dialysis GI Medical History: Reports: Hx Gastroesophageal Reflux Disease, Hx Hiatal Hernia Musculoskeltal Medical History: Reports Hx Arthritis, Reports Hx Musculoskeletal Trauma Psychiatric Medical History: Reports: Hx Depression, Hx Post Traumatic Stress Disorder, Hx Schizoaffective Disorder, Hx Schizophrenia Traumatic Medical History: Reports: Hx Fractures - Left foot Past Surgical History: Reports: Hx Cardiac Surgery - defib, Hx Herniorrhaphy, Hx Pacemaker - Pacemaker defibrillator, Hx Urinary Tract Surgery - prostate. testicle 6-3-14 - Immunizations Immunizations up to date: Yes Hx Diphtheria, Pertussis, Tetanus Vaccination: No Hx Pneumococcal Vaccination: 06/03/10 Review of Systems - Review of Systems Notes: Constitutional: Negative for fever. HENT: Negative for sore throat. Eyes: Negative for visual changes. Cardiovascular: Negative for chest pain. Respiratory: Positive for shortness of breath. Gastrointestinal: Negative for abdominal pain, vomiting or diarrhea. Genitourinary: Negative for dysuria. Musculoskeletal: Negative for back pain. Skin: Negative for rash. Neurological: Negative for headaches, weakness or numbness. 10 point ROS negative except as marked above and in HPI. Physical Exam - Vital signs Vitals: Temp Pulse Resp BP Pulse Ox 98.7 F 77 24 H 150/93 H 96 02/14/17 18:36 02/14/17 18:36 02/14/17 18:36 02/14/17 18:36 02/14/17 18:36 Interpretation: Hypertensive Notes: PHYSICAL EXAMINATION: GENERAL: Well-appearing, well-nourished and in no acute distress. HEAD: Atraumatic, normocephalic. EYES: Pupils equal round and reactive to light, extraocular movements intact, sclera anicteric, conjunctiva are normal. ENT: nares patent, oropharynx clear without exudates. Moist mucous membranes. NECK: Normal range of motion, supple without lymphadenopathy LUNGS: Mildly diminished air movement in all lung mandel. Prolonged expiratory phase with an associated expiratory wheeze. HEART: Regular rate and rhythm without murmurs ABDOMEN: Soft, nontender, normoactive bowel sounds. No guarding, no rebound. No masses appreciated. EXTREMITIES: Normal range of motion, no pitting or edema. No cyanosis. NEUROLOGICAL: No focal neurological deficits. Moves all extremities spontaneously and on command. PSYCH: Normal mood, normal affect. SKIN: Warm, Dry, normal turgor, no rashes or lesions noted. Course - Re-evaluation Re-evalutation: 02/14/17 21:34 Patient presents with a mild exacerbation of their baseline COPD. Mild wheezing at time of presentation but vitals do not show significant hypoxemia or tachypnea. No retractions. Patient did clinically improve after receiving nebulizers here in the emergency department. Chest x-ray without evidence of an acute pneumonia. Laboratories do not show acute kidney injury or significant leukocytosis. Patient able to ambulate without any respiratory distress. Based on patient's overall reassuring assessment, I believe they are stable for outpatient management with steroids and oral antibiotics. Patient has nebulizers at home. I do not suspect an acute alternative pathology at this time based on history and exam including acute pulmonary embolus, ACS, pneumothorax, or aortic dissection. At this time will discharge with return precautions and follow-up recommendations. Verbal discharge instructions given a the bedside and opportunity for questions given. Medication warnings reviewed. Patient is in agreement with this plan and has verbalized understanding of return precautions and the need for primary care follow-up in the next 24-72 hours. - Vital Signs Vital signs: Temp Pulse Resp BP Pulse Ox 98.7 F 77 20 162/102 H 93 02/14/17 18:36 02/14/17 18:36 02/14/17 23:01 02/14/17 22:01 02/14/17 23:01 - Laboratory Result Diagrams: 02/14/17 19:25 02/14/17 19:25 Laboratory results interpreted by me: 02/14/17 19:25 MCH 26.2 L RDW 17.6 H Plt Count 126 L - Diagnostic Test Radiology reviewed: Image reviewed, Reports reviewed Radiology results interpreted by me: 02/14/17 23:01 Chest x-ray: No acute infiltrate or pneumothorax Discharge - Discharge Clinical Impression: COPD exacerbation COPD (chronic obstructive pulmonary disease) Qualifiers: COPD type: unspecified COPD Qualified Code(s): J44.9 - Chronic obstructive pulmonary disease, unspecified Condition: Stable Disposition: HOME, SELF-CARE Additional Instructions: You were seen for a COPD exacerbation. Your symptoms improved with treatment here in the emergency department. However, it is very important that you return to the emergency department immediately if you began to have worsening difficulty breathing that does not respond to your normal home nebulizers. You are also being sent home on a five-day course of steroids that you should start taking tomorrow. Please also take the antibiotics as prescribed. Please also follow closely with your primary care physician. You should eturn to emergency department if you develop fever greater than 101, persistent cough, persistent vomiting, pass out, or any other symptoms that are concerning to you. Prescriptions: Azithromycin 250 mg PO DAILY #4 tablet Prednisone [Deltasone 20 mg Tablet] 3 tab PO DAILY 5 Days tablet Referrals: CARMEN GANT MD [Primary Care Provider] - Follow up as needed
[2017-02-14] MEDS: MAGNESIUM SULFATE/D5W 1 GM/100 ML RTUPB IV SCH ×2 (22:13→22:21)
[2017-02-14] MEDS ORDERED: AZITHROMYCIN 250 MG TABLET PO ONE (23:00)
[2017-02-14 23:21] VITALS: BP 162/102
== END 2017-02-14 23:21 | disposition home or self-care (01) ==
LOC: ER 18:26
DX: J44.1 Chronic obstructive pulmonary disease with (acute) exacerbation (principal); E78.00 Pure hypercholesterolemia, unspecified; I48.91 Unspecified atrial fibrillation; I25.10 Atherosclerotic heart disease of native coronary artery without angina pectoris; Z91.040 Latex allergy status; Z87.891 Personal history of nicotine dependence; Z86.73 Personal history of transient ischemic attack (TIA), and cerebral infarction without residual deficits; Z87.442 Personal history of urinary calculi; Z95.810 Presence of automatic (implantable) cardiac defibrillator; I25.2 Old myocardial infarction
CPT/HCPCS: 94640 ×2; 99285; 96375; 96365; 36415; 85025; 80053; 71020; J2930; J3475; J7620

== ENCOUNTER 2017-02-25 18:09 | Inpatient (IN) | payer OTHER, MEDICARE ==
[2017-02-25 19:17] LABS: ABSOLUTE EOSINOPHILS # (AUTO) 0.2 10^3/uL (0.0-0.6); ABSOLUTE LYMPHOCYTES (AUTO) 2.4 10^3/uL (0.5-4.7); ABSOLUTE MONOCYTES (AUTO) 0.9 10^3/uL (0.1-1.4); BASOPHILS % (AUTO) 0.5 % (0-2); EOSINOPHILS % (AUTO) 2.1 % (0-6); HEMATOCRIT 44.3 % (37.9-51.0); HEMOGLOBIN 14.6 g/dL (13.5-17.0); HGB HCT DIFFERENCE -0.5; LYMPHOCYTES % (AUTO) 28.5 % (13-45); MEAN CORPUSCULAR HEMOGLOBIN 26.2 pg (27.0-33.4); MEAN CORPUSCULAR HGB CONC 32.9 g/dL (32.0-36.0); MEAN CORPUSCULAR VOLUME 80 fl (80-97); MONOCYTES % (AUTO) 10.5 % (3-13); RED BLOOD COUNT 5.56 10^6/uL (4.35-5.55); RED CELL DISTRIBUTION WIDTH 17.3 % (11.5-14.0); SEGMENTED NEUTROPHILS % (AUTO) 58.4 % (42-78); WHITE BLOOD COUNT 8.5 10^3/uL (4.0-10.5)
[2017-02-25 19:42] LABS: ALANINE AMINOTRANSFERASE 33 U/L (21-72); ALBUMIN 3.6 g/dL (3.5-5.0); ALKALINE PHOSPHATASE 88 U/L (38-126); ANION GAP 9 (5-19); ASPARTATE AMINO TRANSFERASE 15 U/L (17-59); BILIRUBIN,DIRECT 0.4 mg/dL (0.0-0.4); BILIRUBIN,TOTAL 0.8 mg/dL (0.2-1.3); BLOOD UREA NITROGEN 20 mg/dL (7-20); CALCIUM 9.1 mg/dL (8.4-10.2); CARBON DIOXIDE 32 mmol/L (22-30); CHLORIDE 102 mmol/L (98-107); CREATININE RESULT 1.15 mg/dL (0.52-1.25); GLUCOSE 113 mg/dL (75-110); POTASSIUM 3.3 mmol/L (3.6-5.0); SODIUM 143.1 mmol/L (137-145); TOTAL PROTEIN 6.6 g/dL (6.3-8.2)
--- NOTE | 2017-02-25 19:48 | RADIOLOGY REPORT (SQ) ---
EXAM DESCRIPTION: CHEST SINGLE VIEW COMPLETED DATE/TIME: 02/25/2017 7:19 pm REASON FOR STUDY: Chest pain, shortness of breath COMPARISON: 02/14/2017 EXAM PARAMETERS: NUMBER OF VIEWS: One view. TECHNIQUE: Single frontal radiographic view of the chest acquired. RADIATION DOSE: NA LIMITATIONS: None. FINDINGS: LUNGS AND PLEURA: No opacities, masses or pneumothorax. No pleural effusion. MEDIASTINUM AND HILAR STRUCTURES: No masses. Contour normal. HEART AND VASCULAR STRUCTURES: Heart normal in size. Normal vasculature. BONES: No acute findings. HARDWARE: Dual chamber transvenous pacemaker is unchanged in position. OTHER: No other significant finding. IMPRESSION: No significant interval change. No acute findings. Other findings as noted above TECHNICAL DOCUMENTATION: JOB ID: [id number]
[2017-02-25 19:54] LABS: CREATINE KINASE MB 0.93 ng/mL (<4.55)
[2017-02-25 19:58] LABS: TROPONIN I < 0.012 ng/mL
--- NOTE | 2017-02-25 21:01 | EKG REPORT ---
SEVERITY:- ABNORMAL ECG - SINUS RHYTHM PROBABLE LEFT VENTRICULAR HYPERTROPHY BORDERLINE T ABNORMALITIES, INFERIOR LEADS : Confirmed by: Ana Jon MD 25-Feb-2017 21:00:42
[2017-02-25] MEDS ORDERED: ALBUTEROL SULFATE HFA (90 MCG/PUFF) 200 PUFF/8.5 GM MDI IH PRN (21:10)
[2017-02-25] MEDS ORDERED: METOPROLOL TARTRATE 25 MG TABLET PO SCH (21:15)
[2017-02-25] MEDS ORDERED: (PENDING PHARMACY ID) (Doxepin Hcl [Silenor] 6 MG) PO SCH (22:00)
[2017-02-25] MEDS: DABIGATRAN ETEXILATE 150 MG CAPSULE PO SCH (22:08)
[2017-02-25] MEDS: DOFETILIDE 500 MCG CAPSULE PO SCH (22:09)
[2017-02-25] MEDS: BUDESONIDE/FORMOTEROL 160-4.5 MCG 60 PUFF/6 GM MDI IH SCH (22:10)
[2017-02-25] MEDS: METOPROLOL TARTRATE 50 MG TABLET PO SCH (22:12)
[2017-02-25] MEDS: METHOCARBAMOL 500 MG TABLET PO SCH (22:13)
[2017-02-25] MEDS: BENZTROPINE MESYLATE 1 MG TABLET PO SCH (22:13)
[2017-02-25] MEDS: CLONAZEPAM 1 MG TABLET PO SCH (22:13)
[2017-02-26 03:46] LABS: CREATINE KINASE MB 0.77 ng/mL (<4.55)
[2017-02-26 03:51] LABS: TROPONIN I < 0.012 ng/mL
[2017-02-26] MEDS: FUROSEMIDE 20 MG TABLET PO SCH (08:01)
[2017-02-26] MEDS: PAROXETINE HCL 20 MG TABLET PO SCH (08:03)
[2017-02-26] MEDS: BENZTROPINE MESYLATE 1 MG TABLET PO SCH ×2 (09:50→22:01)
[2017-02-26] MEDS: BUDESONIDE/FORMOTEROL 160-4.5 MCG 60 PUFF/6 GM MDI IH SCH ×2 (09:50→22:00)
[2017-02-26] MEDS: DABIGATRAN ETEXILATE 150 MG CAPSULE PO SCH ×2 (09:51→22:06)
[2017-02-26] MEDS: CLONAZEPAM 1 MG TABLET PO SCH ×2 (09:51→22:02)
[2017-02-26] MEDS: FLUTICASONE NASAL SPRAY 50 MCG/SPRY 120 SPRAY/16 GM NASL SCH (10:06)
[2017-02-26] MEDS: DOFETILIDE 500 MCG CAPSULE PO SCH ×2 (10:06→22:01)
[2017-02-26] MEDS: FINASTERIDE 5 MG TABLET PO SCH (10:06)
[2017-02-26] MEDS: LISINOPRIL 10 MG TABLET PO SCH (10:07)
[2017-02-26] MEDS: POTASSIUM CHLORIDE 10 MEQ TABLET.SA PO SCH (10:08)
[2017-02-26] MEDS: ARIPIPRAZOLE 5 MG TABLET PO SCH (10:10)
[2017-02-26] MEDS: METHOCARBAMOL 500 MG TABLET PO SCH ×2 (11:12→22:03)
[2017-02-26] MEDS: METOPROLOL TARTRATE 50 MG TABLET PO SCH ×2 (11:12→22:03)
[2017-02-26 11:58] LABS: ALANINE AMINOTRANSFERASE 31 U/L (21-72); ALBUMIN 3.3 g/dL (3.5-5.0); ALKALINE PHOSPHATASE 81 U/L (38-126); ANION GAP 6 (5-19); ASPARTATE AMINO TRANSFERASE 13 U/L (17-59); BILIRUBIN,DIRECT 0.3 mg/dL (0.0-0.4); BILIRUBIN,TOTAL 0.7 mg/dL (0.2-1.3); BLOOD UREA NITROGEN 18 mg/dL (7-20); CALCIUM 9.3 mg/dL (8.4-10.2); CARBON DIOXIDE 34 mmol/L (22-30); CHLORIDE 101 mmol/L (98-107); CREATININE RESULT 1.11 mg/dL (0.52-1.25); GLUCOSE 114 mg/dL (75-110); POTASSIUM 3.8 mmol/L (3.6-5.0); SODIUM 141.3 mmol/L (137-145); TOTAL PROTEIN 6.3 g/dL (6.3-8.2)
[2017-02-26 12:10] LABS: CREATINE KINASE MB 0.71 ng/mL (<4.55)
[2017-02-26 12:11] LABS: TROPONIN I < 0.012 ng/mL
[2017-02-26 18:09] LABS: ARTERIAL BLOOD BASE EXCESS 5.9 mmol/L; ARTERIAL BLOOD O2 SATURATION 94.5 % (94-98)
[2017-02-26] MEDS: METHYLPREDNISOLONE INJ 125 MG/2 ML SDV IV SCH (18:31)
--- NOTE | 2017-02-26 20:57 | PDOC H&P ---
History of Present Illness Admission Date/PCP: 02/25/17 18:09 CARMEN GANT MD History of Present Illness: KRISH RAMOS JR is a 61 year old male, He came to the office for evaluation of shortness of breath and chest pain, patient is very obese he has a history of chronic atrial fibrillation, presence of cardiac pacemaker, nonischemic cardiomyopathy. He was admitted directly from the office into the hospital for evaluation of his symptoms the initial intent was to admit him for observation. 3 sets of cardiac enzymes were negative for any acute myocardial infarction the d-dimer was low which virtually rule out pulmonary embolism, he is also on Pradaxa, anticoagulant for the management of his chronic atrial fibrillation for CVA prophylaxis. On evaluation this afternoon patient was audibly wheezing a blood gas was done on FiO2 of 2 L pH 7.38 PCO2 57.8 bicarbonate 33.1 this is consistent with chronic respiratory acidosis and relative hypoxemia. He has a history of severe persistent asthma/COPD as indicated the intent was to admit him for observation but patient will be need intravenous Solu-Medrol in light of the audible wheeze, hypoxemia and acid-base disorder. Past Medical History Cardiac Medical History: Reports: Atrial Fibrillation, Congestive Heart Failure , Coronary Artery Disease, Myocardial Infarction, Hyperlipidema, Hypertension, Peripheral Vascular Disease Pulmonary Medical History: Reports: Asthma, Bronchitis, Chronic Obstructive Pulmonary Disease (COPD), Pneumonia - X2, Sleep Apnea GI Medical History: Reports: Gastroesophageal Reflux Disease, Hiatal Hernia Musculoskeltal Medical History: Reports: Arthritis Psychiatric Medical History: Reports: Depression, Post Traumatic Stress Disorder , Schizoaffective Disorder Hematology: Reports: Anemia - ON IRON PILLS Past Surgical History Past Surgical History: Reports: Herniorrhaphy, Pacemaker - Pacemaker defibrillator Social History Smoking Status: Former Smoker Last Time Smoked: 1970 Frequency of Alcohol Use: None Hx Recreational Drug Use: No Drugs: None Hx Prescription Drug Abuse: No Family History Family History: Arthritis, CAD, CVA, DM, Hyperlipidemia, Hypertension, Malignancy Parental Family History Reviewed: Yes Children Family History Reviewed: Yes Sibling(s) Family History Reviewed.: Yes Medication/Allergy Home Medications: Albuterol Sulfate [Proair HFA] 2 puff IH Q4HP PRN 10/26/16 Aripiprazole [Abilify 30 MG Tablet] 30 mg PO DAILY 05/26/17 Benztropine Mesylate [Benztropine Mesylate 2 mg Tablet] 2 mg PO Q12 10/26/16 Budesonide/Formoterol Fumarate [Symbicort HFA 160-4.5 mcg Inhaler 6 gm] 2 puff IH Q12 10/26/16 Clonazepam [Klonopin 1 mg Tablet] 1 mg PO Q12 10/26/16 Dabigatran Etexilate Mesylate [Pradaxa 150 mg Capsule] 150 mg PO Q12 10/26/16 Dofetilide [Tikosyn 500 Mcg Capsule] 500 mcg PO Q12 10/26/16 Doxepin HCl [Silenor] 6 mg PO QHS 10/26/16 Finasteride [Proscar 5 mg Tablet] 5 mg PO DAILY 10/26/16 Fluticasone Propionate [Flonase Nasal [place] 50 Mcg/[place] 16 gm] 1 spray NASL DAILY 10/26/16 Furosemide [Lasix 20 mg Tablet] 20 mg PO QAM 10/26/16 Lisinopril [Zestril] 10 mg PO DAILY 10/26/16 Methocarbamol [Robaxin 500 mg Tablet] 500 mg PO Q12 10/26/16 Metoprolol Tartrate [Lopressor] 50 mg PO Q12 10/26/16 Paroxetine HCl [Paxil 20 mg Tablet] 30 mg PO QAM 10/26/16 Potassium Chloride [K-Tab ER] 10 meq PO DAILY 10/26/16 Allergies/Adverse Reactions: latex [Latex] Allergy (Severe, Verified 02/14/17 18:39) WHITTAKER SKIN Review of Systems Constitutional: PRESENT: weakness Eyes: ABSENT: visual disturbances Ears: ABSENT: hearing changes Cardiovascular: PRESENT: chest pain Respiratory: PRESENT: dyspnea Gastrointestinal: ABSENT: abdominal pain, constipation, diarrhea, hematemesis, hematochezia, nausea, vomiting Genitourinary: ABSENT: dysuria, hematuria Musculoskeletal: ABSENT: joint swelling Integumentary: ABSENT: rash, wounds Neurological: ABSENT: abnormal gait, abnormal speech, confusion, dizziness, focal weakness, syncope Psychiatric: ABSENT: anxiety, depression, homidical ideation, suicidal ideation Endocrine: ABSENT: cold intolerance, heat intolerance, menstrual abnormalities, polydipsia, polyuria Hematologic/Lymphatic: ABSENT: easy bleeding, easy bruising, lymphadenopathy Physical Exam Vital Signs: Temp Pulse Resp BP Pulse Ox 99.7 F 73 22 H 127/70 H 93 02/26/17 20:01 02/26/17 20:01 02/26/17 20:01 02/26/17 20:01 02/26/17 20:01 Intake & Output 02/25/17 02/26/17 02/27/17 06:59 06:59 06:59 Intake Total 3 1075 Output Total 750 1150 Balance -747 -75 Weight 131.6 kg General appearance: PRESENT: severe distress Head exam: PRESENT: atraumatic, normocephalic Eye exam: PRESENT: conjunctiva pink, EOMI, PERRLA Mouth exam: PRESENT: moist, tongue midline Neck exam: PRESENT: full ROM Respiratory exam: PRESENT: retraction, tachypnea, wheezes Cardiovascular exam: PRESENT: RRR, +S1, +S2 Vascular exam: PRESENT: normal capillary refill GI/Abdominal exam: PRESENT: normal bowel sounds, soft Rectal exam: PRESENT: deferred Neurological exam: PRESENT: alert, awake, oriented to person, oriented to place , oriented to time, oriented to situation, CN II-XII grossly intact Psychiatric exam: PRESENT: appropriate affect, normal mood Skin exam: PRESENT: dry, intact, warm Results Laboratory Results: 02/25/17 19:00 02/26/17 11:23 02/26/17 02/26/17 11:23 17:55 Carbonic Acid 1.74 H HCO3/H2CO3 Ratio 19:1 ABG pH 7.38 ABG pCO2 57.8 H ABG pO2 75.4 L ABG HCO3 33.1 H ABG O2 Saturation 94.5 ABG Base Excess 5.9 FiO2 2L Sodium 141.3 Potassium 3.8 Chloride 101 Carbon Dioxide 34 H Anion Gap 6 BUN 18 Creatinine 1.11 Est GFR ( Amer) > 60 Est GFR (Non-Af Amer) > 60 Glucose 114 H Calcium 9.3 Total Bilirubin 0.7 AST 13 L ALT 31 Alkaline Phosphatase 81 Total Protein 6.3 Albumin 3.3 L 02/25/17 02/25/17 02/26/17 19:00 19:00 03:05 Creatine Kinase 107 82 CK-MB (CK-2) 0.93 Troponin I < 0.012 NT-Pro-B Natriuret Pep 88 02/26/17 02/26/17 02/26/17 03:05 11:23 11:23 Creatine Kinase 76 CK-MB (CK-2) 0.77 0.71 Troponin I < 0.012 < 0.012 NT-Pro-B Natriuret Pep Impressions: Chest X-Ray 02/25/17 00:00 IMPRESSION: No significant interval change. No acute findings. Other findings as noted above Assessment & Plan - Diagnosis (1) COPD with acute exacerbation Is this a current diagnosis for this admission?: Yes Plan: Patient with acute COPD exacerbation he is started on Solu-Medrol 125 IV every 8 hours, DuoNeb nebulizer every 3 hours (2) Chronic respiratory acidosis Plan: The arterial blood gas is consistent with chronic respiratory acidosis, BPH is 7.38 the PCO2 is 57.8, the primary abnormality is respiratory bicarbonate is 33.1,for every 10mmHG increase in the PCO2 the bicarbonate increase is more than 3 in chronic respiratory acidosis Patient uses BiPAP nocturnally for sleep (3) Chronic atrial fibrillation Is this a current diagnosis for this admission?: Yes Plan: Continue Pradaxa and other treatment (4) Morbidly obese Is this a current diagnosis for this admission?: Yes (5) Sleep apnea syndrome Qualifiers: Sleep apnea type: unspecified type Qualified Code(s): G47.30 - Sleep apnea , unspecified Is this a current diagnosis for this admission?: Yes
[2017-02-26] MEDS ORDERED: IPRATROPIUM/ALBUTEROL 0.5-2.5 MG/3 ML AMPUL NEB ONE (21:30)
[2017-02-26 21:37] LABS: HEMATOCRIT 45.2 % (37.9-51.0); HEMOGLOBIN 14.8 g/dL (13.5-17.0); HGB HCT DIFFERENCE -0.8; MEAN CORPUSCULAR HEMOGLOBIN 26.4 pg (27.0-33.4); MEAN CORPUSCULAR HGB CONC 32.8 g/dL (32.0-36.0); MEAN CORPUSCULAR VOLUME 81 fl (80-97); RED BLOOD COUNT 5.61 10^6/uL (4.35-5.55); RED CELL DISTRIBUTION WIDTH 17.8 % (11.5-14.0); WHITE BLOOD COUNT 9.8 10^3/uL (4.0-10.5)
[2017-02-26 21:43] LABS: PARTIAL THROMBOPLASTIN TIME 30.2 SEC (23.5-35.8); PROTHROMBIN TIME 14.3 SEC (11.4-15.4)
[2017-02-26 21:58] LABS: CREATININE RESULT 1.18 mg/dL (0.52-1.25)
[2017-02-27] MEDS: IPRATROPIUM/ALBUTEROL 0.5-2.5 MG/3 ML AMPUL NEB SCH ×6 (02:25→19:52)
[2017-02-27] MEDS: METHYLPREDNISOLONE INJ 125 MG/2 ML SDV IV SCH ×3 (02:57→17:21)
[2017-02-27] MEDS: PAROXETINE HCL 20 MG TABLET PO SCH (07:59)
[2017-02-27] MEDS: FUROSEMIDE 20 MG TABLET PO SCH (07:59)
[2017-02-27] MEDS: POTASSIUM CHLORIDE 10 MEQ TABLET.SA PO SCH (09:27)
[2017-02-27] MEDS: METOPROLOL TARTRATE 50 MG TABLET PO SCH ×2 (09:27→21:30)
[2017-02-27] MEDS: CLONAZEPAM 1 MG TABLET PO SCH ×2 (09:28→21:30)
[2017-02-27] MEDS: FINASTERIDE 5 MG TABLET PO SCH (09:28)
[2017-02-27] MEDS: LISINOPRIL 10 MG TABLET PO SCH (09:28)
[2017-02-27] MEDS: METHOCARBAMOL 500 MG TABLET PO SCH ×2 (09:28→21:30)
[2017-02-27] MEDS: BENZTROPINE MESYLATE 1 MG TABLET PO SCH ×2 (09:28→21:30)
[2017-02-27] MEDS: DABIGATRAN ETEXILATE 150 MG CAPSULE PO SCH ×2 (09:29→21:30)
[2017-02-27] MEDS: DOFETILIDE 500 MCG CAPSULE PO SCH ×2 (09:29→21:30)
[2017-02-27] MEDS: FLUTICASONE NASAL SPRAY 50 MCG/SPRY 120 SPRAY/16 GM NASL SCH (09:29)
[2017-02-27] MEDS: BUDESONIDE/FORMOTEROL 160-4.5 MCG 60 PUFF/6 GM MDI IH SCH ×2 (09:30→21:31)
[2017-02-27] MEDS: ARIPIPRAZOLE 5 MG TABLET PO SCH (09:30)
--- NOTE | 2017-02-27 17:04 | PDOC PROGRESS REPORT ---
Subjective Progress Note for:: 02/27/17 Subjective:: Patient was admitted 2 days ago for evaluation of chest pain and shortness of breath, yesterday he started audibly wheezing and he was started on IV Solu- Medrol, is seems to be responding quite well to Solu-Medrol he will continue Solu-Medrol for a total of 3 days Physical Exam Vital Signs: Temp Pulse Resp BP Pulse Ox 97.9 F 84 22 H 121/73 91 L 02/27/17 15:28 02/27/17 15:28 02/27/17 15:28 02/27/17 15:28 02/27/17 15:28 Intake & Output 02/26/17 02/27/17 02/28/17 06:59 06:59 06:59 Intake Total 3 1658 473 Output Total 750 1150 Balance -747 508 473 Weight 131.6 kg 132.5 kg General appearance: PRESENT: mild distress Head exam: PRESENT: atraumatic, normocephalic Eye exam: PRESENT: conjunctiva pink, EOMI, PERRLA Ear exam: PRESENT: normal external ear exam Mouth exam: PRESENT: moist, tongue midline Neck exam: PRESENT: full ROM Respiratory exam: PRESENT: rhonchi Cardiovascular exam: PRESENT: RRR, +S1, +S2 Pulses: PRESENT: normal dorsalis pedis pul, +2 pedal pulses bilateral Vascular exam: PRESENT: normal capillary refill GI/Abdominal exam: PRESENT: normal bowel sounds, soft Rectal exam: PRESENT: deferred Neurological exam: PRESENT: alert, awake, oriented to person, oriented to place , oriented to time, oriented to situation, CN II-XII grossly intact Psychiatric exam: PRESENT: appropriate affect, normal mood Skin exam: PRESENT: dry, intact, warm Results Laboratory Results: 02/26/17 21:28 02/26/17 21:28 02/26/17 02/26/17 02/26/17 17:55 21:28 21:28 WBC 9.8 RBC 5.61 H Hgb 14.8 Hct 45.2 MCV 81 MCH 26.4 L MCHC 32.8 RDW 17.8 H Plt Count 121 L Carbonic Acid 1.74 H HCO3/H2CO3 Ratio 19:1 ABG pH 7.38 ABG pCO2 57.8 H ABG pO2 75.4 L ABG HCO3 33.1 H ABG O2 Saturation 94.5 ABG Base Excess 5.9 FiO2 2L Creatinine 1.18 Est GFR ( Amer) > 60 Est GFR (Non-Af Amer) > 60 02/25/17 02/25/17 02/26/17 19:00 19:00 03:05 Creatine Kinase 107 82 CK-MB (CK-2) 0.93 Troponin I < 0.012 NT-Pro-B Natriuret Pep 88 02/26/17 02/26/17 02/26/17 03:05 11:23 11:23 Creatine Kinase 76 CK-MB (CK-2) 0.77 0.71 Troponin I < 0.012 < 0.012 NT-Pro-B Natriuret Pep Impressions: Chest X-Ray 02/25/17 00:00 IMPRESSION: No significant interval change. No acute findings. Other findings as noted above Assessment & Plan - Diagnosis (1) COPD with acute exacerbation Is this a current diagnosis for this admission?: Yes (2) Chronic respiratory acidosis Plan: Continue IV Solu-Medrol continue bronchodilators continue all other treatment (3) Chronic atrial fibrillation Is this a current diagnosis for this admission?: Yes (4) Morbidly obese Is this a current diagnosis for this admission?: Yes (5) Sleep apnea syndrome Qualifiers: Sleep apnea type: unspecified type Qualified Code(s): G47.30 - Sleep apnea , unspecified Is this a current diagnosis for this admission?: Yes
[2017-02-28] MEDS: METHYLPREDNISOLONE INJ 125 MG/2 ML SDV IV SCH ×3 (01:28→17:31)
[2017-02-28] MEDS: IPRATROPIUM/ALBUTEROL 0.5-2.5 MG/3 ML AMPUL NEB SCH ×4 (01:48→20:03)
[2017-02-28] MEDS: FUROSEMIDE 20 MG TABLET PO SCH (08:52)
[2017-02-28] MEDS: PAROXETINE HCL 20 MG TABLET PO SCH (08:52)
[2017-02-28] MEDS: BUDESONIDE/FORMOTEROL 160-4.5 MCG 60 PUFF/6 GM MDI IH SCH ×2 (10:58→21:35)
[2017-02-28] MEDS: FLUTICASONE NASAL SPRAY 50 MCG/SPRY 120 SPRAY/16 GM NASL SCH (10:59)
[2017-02-28] MEDS: CLONAZEPAM 1 MG TABLET PO SCH ×2 (11:01→21:34)
[2017-02-28] MEDS: BENZTROPINE MESYLATE 1 MG TABLET PO SCH ×2 (11:02→21:33)
[2017-02-28] MEDS: POTASSIUM CHLORIDE 10 MEQ TABLET.SA PO SCH (11:02)
[2017-02-28] MEDS: LISINOPRIL 10 MG TABLET PO SCH (11:02)
[2017-02-28] MEDS: FINASTERIDE 5 MG TABLET PO SCH (11:03)
[2017-02-28] MEDS: METHOCARBAMOL 500 MG TABLET PO SCH ×2 (11:03→21:34)
[2017-02-28] MEDS: ARIPIPRAZOLE 5 MG TABLET PO SCH (11:04)
[2017-02-28] MEDS: METOPROLOL TARTRATE 50 MG TABLET PO SCH ×2 (11:04→21:35)
[2017-02-28] MEDS: DABIGATRAN ETEXILATE 150 MG CAPSULE PO SCH ×2 (11:07→21:35)
[2017-02-28] MEDS: DOFETILIDE 500 MCG CAPSULE PO SCH ×2 (11:07→21:34)
--- NOTE | 2017-02-28 18:53 | PDOC DISCHARGE SUMMARY ---
General - Admit/Disc Date/PCP Admission Date/Primary Care Provider: 02/28/17 14:40 CARMEN GANT MD Discharge Date: 03/01/17 - Discharge Diagnosis (1) COPD with acute exacerbation Is this a current diagnosis for this admission?: Yes (3) Chronic atrial fibrillation Is this a current diagnosis for this admission?: Yes (4) Morbidly obese Is this a current diagnosis for this admission?: Yes (5) Sleep apnea syndrome Is this a current diagnosis for this admission?: Yes - Additional Information Discharge Activity: Activity As Tolerated Home Medications: Albuterol Sulfate [Proair HFA] 2 puff IH Q4HP PRN 10/26/16 Aripiprazole [Abilify 30 MG Tablet] 30 mg PO DAILY 10/26/16 Benztropine Mesylate [Benztropine Mesylate 2 mg Tablet] 2 mg PO Q12 10/26/16 Budesonide/Formoterol Fumarate [Symbicort HFA 160-4.5 mcg Inhaler 6 gm] 2 puff IH Q12 10/26/16 Clonazepam [Klonopin 1 mg Tablet] 1 mg PO Q12 10/26/16 Dabigatran Etexilate Mesylate [Pradaxa 150 mg Capsule] 150 mg PO Q12 10/26/16 Dofetilide [Tikosyn 500 Mcg Capsule] 500 mcg PO Q12 10/26/16 Doxepin HCl [Silenor] 6 mg PO QHS 10/26/16 Finasteride [Proscar 5 mg Tablet] 5 mg PO DAILY 10/26/16 Fluticasone Propionate [Flonase Nasal [place] 50 Mcg/[place] 16 gm] 1 spray NASL DAILY 10/26/16 Furosemide [Lasix 20 mg Tablet] 20 mg PO QAM 10/26/16 Lisinopril [Zestril] 10 mg PO DAILY 10/26/16 Methocarbamol [Robaxin 500 mg Tablet] 500 mg PO Q12 10/26/16 Metoprolol Tartrate [Lopressor] 50 mg PO Q12 10/26/16 Paroxetine HCl [Paxil 20 mg Tablet] 30 mg PO QAM 10/26/16 Potassium Chloride [K-Tab ER] 10 meq PO DAILY 10/26/16 Methylprednisolone [Medrol Dosepack (4 mg/Tab) 21 Tab/Dosepak] 21 tab PO ASDIR PRN #1 dspk 02/28/17 History of Present Illness History of Present Illness: KRISH RAMOS JR is a 61 year old male, He came to the office for evaluation of shortness of breath and chest pain, patient is very obese he has a history of chronic atrial fibrillation, presence of cardiac pacemaker, nonischemic cardiomyopathy. He was admitted directly from the office into the hospital for evaluation of his symptoms the initial intent was to admit him for observation. 3 sets of cardiac enzymes were negative for any acute myocardial infarction the d-dimer was low which virtually rule out pulmonary embolism, he is also on Pradaxa, anticoagulant for the management of his chronic atrial fibrillation for CVA prophylaxis. On evaluation this afternoon patient was audibly wheezing a blood gas was done on FiO2 of 2 L pH 7.38 PCO2 57.8 bicarbonate 33.1 this is consistent with chronic respiratory acidosis and relative hypoxemia. He has a history of severe persistent asthma/COPD as indicated the intent was to admit him for observation but patient will be need intravenous Solu-Medrol in light of the audible wheeze, hypoxemia and acid-base disorder. Hospital Course Hospital Course: Patient was admitted for the management of acute COPD exacerbation, he was treated with IV Solu-Medrol, bronchodilators and antibiotic patient improved significantly with management Physical Exam Vital Signs: Temp Pulse Resp BP Pulse Ox 97.1 F 75 21 H 147/76 H 91 L 02/28/17 15:41 02/28/17 15:41 02/28/17 15:41 02/28/17 15:41 02/28/17 15:41 Intake & Output 02/27/17 02/28/17 03/01/17 06:59 06:59 06:59 Intake Total 1658 2238 1105 Output Total 1150 Balance 508 2238 1105 Weight 132.5 kg 134.6 kg General appearance: PRESENT: no acute distress, well-developed, well-nourished Head exam: PRESENT: atraumatic, normocephalic Eye exam: PRESENT: conjunctiva pink, EOMI, PERRLA Ear exam: PRESENT: normal external ear exam Mouth exam: PRESENT: moist, tongue midline Neck exam: PRESENT: full ROM Respiratory exam: PRESENT: clear to auscultation martita Cardiovascular exam: PRESENT: RRR, +S1, +S2 Pulses: PRESENT: normal dorsalis pedis pul, +2 pedal pulses bilateral Vascular exam: PRESENT: normal capillary refill GI/Abdominal exam: PRESENT: normal bowel sounds, soft Rectal exam: PRESENT: deferred Neurological exam: PRESENT: alert, awake, oriented to person, oriented to place , oriented to time, oriented to situation, CN II-XII grossly intact Psychiatric exam: PRESENT: appropriate affect, normal mood Skin exam: PRESENT: dry, intact, warm Results Laboratory Results: 02/26/17 21:28 02/26/17 21:28 02/25/17 02/25/17 02/26/17 19:00 19:00 03:05 Creatine Kinase 107 82 CK-MB (CK-2) 0.93 Troponin I < 0.012 NT-Pro-B Natriuret Pep 88 02/26/17 02/26/17 02/26/17 03:05 11:23 11:23 Creatine Kinase 76 CK-MB (CK-2) 0.77 0.71 Troponin I < 0.012 < 0.012 NT-Pro-B Natriuret Pep Impressions: Chest X-Ray 02/25/17 00:00 IMPRESSION: No significant interval change. No acute findings. Other findings as noted above
--- NOTE | 2017-02-28 18:55 | PDOC PROGRESS REPORT ---
Subjective Progress Note for:: 02/28/17 Subjective:: Patient was seen by the bedside he is responding to IV Solu-Medrol, hopefully discharge home in the morning Physical Exam Vital Signs: Temp Pulse Resp BP Pulse Ox 97.1 F 75 21 H 147/76 H 91 L 02/28/17 15:41 02/28/17 15:41 02/28/17 15:41 02/28/17 15:41 02/28/17 15:41 Intake & Output 02/27/17 02/28/17 03/01/17 06:59 06:59 06:59 Intake Total 1658 2238 1105 Output Total 1150 Balance 508 2238 1105 Weight 132.5 kg 134.6 kg General appearance: PRESENT: no acute distress, well-developed, well-nourished Head exam: PRESENT: atraumatic, normocephalic Eye exam: PRESENT: conjunctiva pink, EOMI, PERRLA Ear exam: PRESENT: normal external ear exam Mouth exam: PRESENT: moist, tongue midline Neck exam: PRESENT: full ROM Respiratory exam: PRESENT: clear to auscultation martita Cardiovascular exam: PRESENT: RRR, +S1, +S2 Pulses: PRESENT: normal dorsalis pedis pul, +2 pedal pulses bilateral Vascular exam: PRESENT: normal capillary refill GI/Abdominal exam: PRESENT: normal bowel sounds, soft Rectal exam: PRESENT: deferred Neurological exam: PRESENT: alert, awake, oriented to person, oriented to place , oriented to time, oriented to situation, CN II-XII grossly intact Psychiatric exam: PRESENT: appropriate affect, normal mood Skin exam: PRESENT: dry, intact, warm Results Laboratory Results: 02/26/17 21:28 02/26/17 21:28 02/25/17 02/25/17 02/26/17 19:00 19:00 03:05 Creatine Kinase 107 82 CK-MB (CK-2) 0.93 Troponin I < 0.012 NT-Pro-B Natriuret Pep 88 02/26/17 02/26/17 02/26/17 03:05 11:23 11:23 Creatine Kinase 76 CK-MB (CK-2) 0.77 0.71 Troponin I < 0.012 < 0.012 NT-Pro-B Natriuret Pep Impressions: Chest X-Ray 02/25/17 00:00 IMPRESSION: No significant interval change. No acute findings. Other findings as noted above Assessment & Plan - Diagnosis (1) COPD with acute exacerbation Is this a current diagnosis for this admission?: Yes (2) Chronic respiratory acidosis Is this a current diagnosis for this admission?: Yes (3) Chronic atrial fibrillation Is this a current diagnosis for this admission?: Yes (4) Morbidly obese Is this a current diagnosis for this admission?: Yes (5) Sleep apnea syndrome Qualifiers: Sleep apnea type: unspecified type Qualified Code(s): G47.30 - Sleep apnea , unspecified Is this a current diagnosis for this admission?: Yes
[2017-03-01] MEDS: METHYLPREDNISOLONE INJ 125 MG/2 ML SDV IV SCH ×2 (01:19→09:16)
[2017-03-01] MEDS: IPRATROPIUM/ALBUTEROL 0.5-2.5 MG/3 ML AMPUL NEB SCH ×2 (02:10→08:56)
[2017-03-01] MEDS: FUROSEMIDE 20 MG TABLET PO SCH (08:56)
[2017-03-01] MEDS: METHOCARBAMOL 500 MG TABLET PO SCH (08:57)
[2017-03-01] MEDS: PAROXETINE HCL 20 MG TABLET PO SCH (08:58)
[2017-03-01] MEDS: BENZTROPINE MESYLATE 1 MG TABLET PO SCH (09:00)
[2017-03-01] MEDS: BUDESONIDE/FORMOTEROL 160-4.5 MCG 60 PUFF/6 GM MDI IH SCH (09:00)
[2017-03-01] MEDS: METOPROLOL TARTRATE 50 MG TABLET PO SCH (09:01)
[2017-03-01] MEDS: CLONAZEPAM 1 MG TABLET PO SCH (09:01)
[2017-03-01] MEDS: DOFETILIDE 500 MCG CAPSULE PO SCH (09:01)
[2017-03-01] MEDS: FLUTICASONE NASAL SPRAY 50 MCG/SPRY 120 SPRAY/16 GM NASL SCH (09:02)
[2017-03-01] MEDS: LISINOPRIL 10 MG TABLET PO SCH (09:02)
[2017-03-01] MEDS: POTASSIUM CHLORIDE 10 MEQ TABLET.SA PO SCH (09:02)
[2017-03-01] MEDS: FINASTERIDE 5 MG TABLET PO SCH (09:02)
[2017-03-01] MEDS: DABIGATRAN ETEXILATE 150 MG CAPSULE PO SCH (09:03)
[2017-03-01] MEDS: ARIPIPRAZOLE 5 MG TABLET PO SCH (09:16)
[2017-03-01 09:58] VITALS: BP 159/99
== END 2017-03-01 11:43 | disposition home or self-care (01) | DRG 191 ==
LOC: 3S 18:09 → INTOOBSV 18:09 → OBSVTOIN 02-28 14:40
PROVIDERS: ADMIT Internal Medicine; ATTEND Internal Medicine
PROC: 3E0F73Z Introduction of Anti-inflammatory into Respiratory Tract, Via Natural or Artificial Opening (ICD-10-PCS; principal; 2017-02-26)
DX: J44.1 Chronic obstructive pulmonary disease with (acute) exacerbation (principal); Z68.41 Body mass index [BMI] 40.0-44.9, adult; E87.2 Acidosis; I42.9 Cardiomyopathy, unspecified; I11.0 Hypertensive heart disease with heart failure; I50.9 Heart failure, unspecified; I48.2 Chronic atrial fibrillation; I25.10 Atherosclerotic heart disease of native coronary artery without angina pectoris; E78.5 Hyperlipidemia, unspecified; I73.9 Peripheral vascular disease, unspecified; K21.9 Gastro-esophageal reflux disease without esophagitis; F43.10 Post-traumatic stress disorder, unspecified; G47.30 Sleep apnea, unspecified; E66.01 Morbid (severe) obesity due to excess calories; F25.9 Schizoaffective disorder, unspecified; D64.9 Anemia, unspecified; Z95.810 Presence of automatic (implantable) cardiac defibrillator; Z87.891 Personal history of nicotine dependence; Z82.49 Family history of ischemic heart disease and other diseases of the circulatory system; Z86.73 Personal history of transient ischemic attack (TIA), and cerebral infarction without residual deficits; Z82.61 Family history of arthritis; Z83.3 Family history of diabetes mellitus; Z91.040 Latex allergy status; Z79.899 Other long term (current) drug therapy; Z79.01 Long term (current) use of anticoagulants
CPT/HCPCS: 36415; 36600; 71010; 80048; 80053; 80076; 82550; 82553; 82565; 82803; 83880; 84484; 85025; 85027; 85379; 85610; 85730; 93005; 93010; J2930; J3490; J7620

== ENCOUNTER 2017-05-06 18:00 | Inpatient (IN) | payer OTHER, MEDICARE ==
[2017-05-06 18:44] LABS: ABSOLUTE EOSINOPHILS # (AUTO) 0.3 10^3/uL (0.0-0.6); ABSOLUTE LYMPHOCYTES (AUTO) 2.2 10^3/uL (0.5-4.7); ABSOLUTE MONOCYTES (AUTO) 0.7 10^3/uL (0.1-1.4); ABSOLUTE NEUT (AUTO) 3.1 10^3/uL (1.7-8.2); BASOPHILS % (AUTO) 0.6 % (0-2); EOSINOPHILS % (AUTO) 4.3 % (0-6); HEMOGLOBIN 13.6 g/dL (13.5-17.0); HGB HCT DIFFERENCE -1.2; MEAN CORPUSCULAR HEMOGLOBIN 26.2 pg (27.0-33.4); MEAN CORPUSCULAR HGB CONC 32.4 g/dL (32.0-36.0); MEAN CORPUSCULAR VOLUME 81 fl (80-97); MONOCYTES % (AUTO) 10.6 % (3-13); RED BLOOD COUNT 5.19 10^6/uL (4.35-5.55); RED CELL DISTRIBUTION WIDTH 17.1 % (11.5-14.0); SEGMENTED NEUTROPHILS % (AUTO) 49.5 % (42-78); WHITE BLOOD COUNT 6.2 10^3/uL (4.0-10.5)
[2017-05-06] MEDS ORDERED: INFLUENZA ADLT QUAD (36MOS+) 2017-18 VAC 0.5 ML SYR IM PRN (18:55)
--- NOTE | 2017-05-06 19:08 | RADIOLOGY REPORT (SQ) ---
EXAM DESCRIPTION: CHEST SINGLE VIEW COMPLETED DATE/TIME: 05/06/2017 6:44 pm REASON FOR STUDY: acute COPD COMPARISON: None. EXAM PARAMETERS: NUMBER OF VIEWS: One view. TECHNIQUE: Single frontal radiographic view of the chest acquired. RADIATION DOSE: NA LIMITATIONS: None. FINDINGS: LUNGS AND PLEURA: No opacities, masses or pneumothorax. No pleural effusion. MEDIASTINUM AND HILAR STRUCTURES: No masses. Contour normal. HEART AND VASCULAR STRUCTURES: Heart normal in size. Normal vasculature. BONES: No acute findings. HARDWARE: Dual chamber transvenous pacemaker is identified in position. OTHER: No other significant finding. IMPRESSION: NO ACUTE RADIOGRAPHIC FINDING IN THE CHEST. TECHNICAL DOCUMENTATION: JOB ID: [id number] [employer]- All Rights Reserved
[2017-05-06 19:09] LABS: ALANINE AMINOTRANSFERASE 30 U/L (21-72); ALBUMIN 3.5 g/dL (3.5-5.0); ALKALINE PHOSPHATASE 83 U/L (38-126); ANION GAP 9 (5-19); ASPARTATE AMINO TRANSFERASE 20 U/L (17-59); BILIRUBIN,DIRECT 0.3 mg/dL (0.0-0.4); BILIRUBIN,TOTAL 0.5 mg/dL (0.2-1.3); BLOOD UREA NITROGEN 13 mg/dL (7-20); CALCIUM 8.9 mg/dL (8.4-10.2); CARBON DIOXIDE 28 mmol/L (22-30); CHLORIDE 107 mmol/L (98-107); CREATININE RESULT 1.22 mg/dL (0.52-1.25); GLUCOSE 96 mg/dL (75-110); POTASSIUM 4.1 mmol/L (3.6-5.0); SODIUM 144.2 mmol/L (137-145); TOTAL PROTEIN 6.3 g/dL (6.3-8.2)
--- NOTE | 2017-05-06 19:12 | RADIOLOGY REPORT (SQ) ---
EXAM DESCRIPTION: KNEE RIGHT 2 VIEWS COMPLETED DATE/TIME: 05/06/2017 6:44 pm REASON FOR STUDY: right knee pain COMPARISON: None. NUMBER OF VIEWS: Two views TECHNIQUE: AP and lateral radiographic images acquired of the right knee. LIMITATIONS: None. FINDINGS: MINERALIZATION: Normal. BONES: No acute fracture or dislocation. No worrisome bone lesions. JOINT: No effusion. SOFT TISSUES: No soft tissue swelling. No radio-opaque foreign body. OTHER: No other significant finding. IMPRESSION: No significant findings. TECHNICAL DOCUMENTATION: JOB ID: [id number] [employer]- All Rights Reserved
[2017-05-06 19:13] LABS: ARTERIAL BLOOD BASE EXCESS 2.8 mmol/L; ARTERIAL BLOOD O2 SATURATION 95.6 % (94-98)
[2017-05-06] MEDS: IPRATROPIUM/ALBUTEROL 0.5-2.5 MG/3 ML AMPUL NEB SCH (20:17)
[2017-05-06] MEDS ORDERED: NITROGLYCERIN 0.4 MG/TAB 25 TAB/BOTTLE SL PRN (21:21)
--- NOTE | 2017-05-06 21:28 | PDOC H&P ---
History of Present Illness Admission Date/PCP: 05/06/17 18:00 CARMEN GANT MD History of Present Illness: KRISH RAMOS JR is a 61 year old male, He came to the office today for evaluation of respiratory symptoms, shortness of breath, wheezing, he has a history of COPD. In the office he was audibly wheezing. He was admitted to the hospital for management, ABG suggests respiratory acidosis. He also have a history of chronic atrial fibrillation, nonischemic cardiomyopathy, morbid obesity with distended abdomen. A CAT scan of the abdomen was done, there is no acute intra-abdominal pathology Past Medical History Cardiac Medical History: Reports: Atrial Fibrillation, Coronary Artery Disease, Myocardial Infarction, Hyperlipidema, Hypertension, Peripheral Vascular Disease Pulmonary Medical History: Reports: Asthma, Bronchitis, Chronic Obstructive Pulmonary Disease (COPD), Pneumonia - X2, Sleep Apnea GI Medical History: Reports: Gastroesophageal Reflux Disease, Hiatal Hernia Musculoskeltal Medical History: Reports: Arthritis Psychiatric Medical History: Reports: Depression, Post Traumatic Stress Disorder , Schizoaffective Disorder Hematology: Reports: Anemia - ON IRON PILLS Past Surgical History Past Surgical History: Reports: Herniorrhaphy, Pacemaker - Pacemaker defibrillator Social History Information Source: Patient Smoking Status: Former Smoker Frequency of Alcohol Use: None Hx Recreational Drug Use: No Drugs: None Hx Prescription Drug Abuse: No Family History Family History: Arthritis, CAD, CVA, DM, Hyperlipidemia, Hypertension, Malignancy Parental Family History Reviewed: Yes Children Family History Reviewed: Yes Sibling(s) Family History Reviewed.: Yes Medication/Allergy Home Medications: Benztropine Mesylate [Benztropine Mesylate 2 mg Tablet] 2 mg PO Q12 05/06/17 Budesonide/Formoterol Fumarate [Symbicort Hfa 160-4.5 Mcg Inhaler 6 gm] 2 puff IH Q12 05/06/17 Clonazepam [Klonopin 1 mg Tablet] 1 mg PO Q12HP PRN 05/06/17 Cyanocobalamin (Vitamin B-12) [Vitamin B-12] 1,000 mcg PO DAILY 05/06/17 Dabigatran Etexilate Mesylate [Pradaxa 150 mg Capsule] 150 mg PO Q12 05/06/17 Dofetilide [Tikosyn 500 Mcg Capsule] 500 mcg PO Q12 05/06/17 Doxepin HCl [Silenor] 6 mg PO QHS 05/06/17 Finasteride [Proscar 5 mg Tablet] 5 mg PO DAILY 05/06/17 Fluticasone Propionate [Flonase Nasal Burnham 50 Mcg/Burnham 16 gm] 1 spray NAREB DAILY 05/06/17 Furosemide [Lasix 20 mg Tablet] 20 mg PO DAILY 05/06/17 Lisinopril [Prinivil 10 mg Tablet] 10 mg PO DAILY 05/06/17 Methocarbamol [Robaxin 500 mg Tablet] 500 mg PO Q12 05/06/17 Metoprolol Tartrate [Lopressor 50 mg Tablet] 50 mg PO Q12 05/06/17 Nitroglycerin [Nitrostat 0.4 mg (1/150 Gr) Tabs 25/Bottle] 1 tab SL Q5MP PRN 09/17 Potassium Chloride [Klor-Con 10 Meq Tablet.sa] 10 meq PO DAILY 05/06/17 Allergies/Adverse Reactions: latex [Latex] Allergy (Severe, Verified 02/14/17 18:39) WHITTAKER SKIN Review of Systems Constitutional: ABSENT: chills, fever(s), headache(s), weight gain, weight loss Eyes: ABSENT: visual disturbances Ears: ABSENT: hearing changes Cardiovascular: PRESENT: dyspnea on exertion Respiratory: PRESENT: cough, dyspnea Gastrointestinal: PRESENT: abdominal pain Genitourinary: ABSENT: dysuria, hematuria Musculoskeletal: ABSENT: joint swelling Integumentary: ABSENT: rash, wounds Neurological: ABSENT: abnormal gait, abnormal speech, confusion, dizziness, focal weakness, syncope Psychiatric: ABSENT: anxiety, depression, homidical ideation, suicidal ideation Endocrine: ABSENT: cold intolerance, heat intolerance, menstrual abnormalities, polydipsia, polyuria Hematologic/Lymphatic: ABSENT: easy bleeding, easy bruising, lymphadenopathy Physical Exam Vital Signs: Temp Pulse Resp BP Pulse Ox 97.8 F 60 19 151/96 H 98 05/06/17 19:27 05/06/17 19:27 05/06/17 19:27 05/06/17 19:27 05/06/17 19:27 Intake & Output 05/05/17 05/06/17 05/07/17 06:59 06:59 06:59 Weight 137 kg General appearance: PRESENT: no acute distress, well-developed, well-nourished Head exam: PRESENT: atraumatic, normocephalic Eye exam: PRESENT: conjunctiva pink, EOMI, PERRLA. ABSENT: scleral icterus Ear exam: PRESENT: normal external ear exam Mouth exam: PRESENT: moist, tongue midline Neck exam: PRESENT: full ROM Respiratory exam: PRESENT: wheezes Cardiovascular exam: PRESENT: RRR, +S1, +S2 Pulses: PRESENT: normal dorsalis pedis pul, +2 pedal pulses bilateral Vascular exam: PRESENT: normal capillary refill GI/Abdominal exam: PRESENT: distended, normal bowel sounds, soft Rectal exam: PRESENT: deferred Neurological exam: PRESENT: alert, awake, oriented to person, oriented to place , oriented to time, oriented to situation, CN II-XII grossly intact. ABSENT: motor sensory deficit Psychiatric exam: PRESENT: appropriate affect, normal mood Skin exam: PRESENT: dry, intact, warm Results Laboratory Results: 05/06/17 18:29 05/06/17 18:29 05/06/17 05/06/17 05/06/17 18:29 18:29 19:00 WBC 6.2 RBC 5.19 Hgb 13.6 Hct 42.0 MCV 81 MCH 26.2 L MCHC 32.4 RDW 17.1 H Plt Count 113 L Seg Neutrophils % 49.5 Lymphocytes % 35.0 Monocytes % 10.6 Eosinophils % 4.3 Basophils % 0.6 Absolute Neutrophils 3.1 Absolute Lymphocytes 2.2 Absolute Monocytes 0.7 Absolute Eosinophils 0.3 Absolute Basophils 0.0 Carbonic Acid 1.64 H HCO3/H2CO3 Ratio 18:1 ABG pH 7.35 ABG pCO2 54.6 H ABG pO2 83.3 ABG HCO3 29.6 H ABG O2 Saturation 95.6 ABG Base Excess 2.8 FiO2 2L Sodium 144.2 Potassium 4.1 Chloride 107 Carbon Dioxide 28 Anion Gap 9 BUN 13 Creatinine 1.22 Est GFR ( Amer) > 60 Est GFR (Non-Af Amer) > 60 Glucose 96 Calcium 8.9 Total Bilirubin 0.5 AST 20 ALT 30 Alkaline Phosphatase 83 Total Protein 6.3 Albumin 3.5 Impressions: Chest X-Ray 05/06/17 00:00 IMPRESSION: NO ACUTE RADIOGRAPHIC FINDING IN THE CHEST. Knee X-Ray 05/06/17 00:00 IMPRESSION: No significant findings. Assessment & Plan - Diagnosis (1) Acute exacerbation of chronic obstructive pulmonary disease (COPD) Is this a current diagnosis for this admission?: Yes Plan: Patient admitted for the management of COPD (2) Respiratory acidosis Is this a current diagnosis for this admission?: Yes (3) Abdominal distension Is this a current diagnosis for this admission?: Yes (4) Obstructive sleep apnea Is this a current diagnosis for this admission?: Yes
[2017-05-06] MEDS ORDERED: FINASTERIDE 5 MG TABLET PO ONE (22:00)
[2017-05-06] MEDS ORDERED: CYANOCOBALAMIN (VITAMIN B-12) 1,000 MCG TABLET PO ONE (22:00)
[2017-05-06] MEDS ORDERED: POTASSIUM CHLORIDE 10 MEQ TABLET.SA PO ONE (22:00)
[2017-05-06] MEDS ORDERED: FLUTICASONE NASAL SPRAY 50 MCG/SPRY 120 SPRAY/16 GM NAREB ONE (22:00)
[2017-05-06] MEDS ORDERED: FUROSEMIDE 20 MG TABLET PO ONE (22:00)
[2017-05-06] MEDS ORDERED: (PENDING PHARMACY ID) (Doxepin Hcl [Silenor] 6 MG) PO SCH (22:00)
[2017-05-06] MEDS ORDERED: LISINOPRIL 10 MG TABLET PO ONE (22:00)
[2017-05-06] MEDS ORDERED: (PENDING PHARMACY ID) (Benztropine Mesylate [Benztropine Mesylate 2 Mg Tablet] 2 MG) PO SCH (22:00)
[2017-05-06] MEDS: DOFETILIDE 500 MCG CAPSULE PO SCH (22:28)
[2017-05-06] MEDS: DABIGATRAN ETEXILATE 150 MG CAPSULE PO SCH (22:29)
[2017-05-06] MEDS: BUDESONIDE/FORMOTEROL 160-4.5 MCG 60 PUFF/6 GM MDI IH SCH (22:31)
[2017-05-06] MEDS: METHOCARBAMOL 500 MG TABLET PO SCH (22:31)
[2017-05-06] MEDS: BENZTROPINE MESYLATE 1 MG TABLET PO SCH (22:33)
[2017-05-06] MEDS: METOPROLOL TARTRATE 50 MG TABLET PO SCH (22:34)
--- NOTE | 2017-05-06 23:45 | RADIOLOGY REPORT (SQ) ---
Exam: CT abdomen pelvis without contrast. Reason for exam: Distention. COMPARISON: 03/15/2016. TECHNIQUE: No contrast. Coronal and sagittal reformat. 1433 DLP dose reduction. Limitations: None. FINDINGS: No acute findings. No significant free fluid. No obstruction and no free air. Cardiac stimulation device and leads. Penile prosthesis device involves the right paracentral pelvis. Otherwise, inferior chest, unenhanced intra-abdominal and intrapelvic structures, mildly atrophic pancreas, remaining pelvic organs, mild disc desiccation, mild lower lumbar spondylosis appear otherwise unremarkable. IMPRESSION: No acute findings.
[2017-05-07] MEDS: IPRATROPIUM/ALBUTEROL 0.5-2.5 MG/3 ML AMPUL NEB SCH ×4 (02:50→19:48)
[2017-05-07 07:09] LABS: APPEARANCE,URINE CLEAR; BILIRUBIN,URINE NEGATIVE (NEGATIVE); GLUCOSE, URINE NEGATIVE (NEGATIVE); KETONES,URINE NEGATIVE (NEGATIVE); LEUKOCYTE ESTERASE,URINE NEGATIVE (NEGATIVE); NITRITE,URINE NEGATIVE (NEGATIVE); PROTEIN,URINE NEGATIVE (NEGATIVE); URINE SPECIFIC GRAVITY 1.008; UROBILINOGEN,URINE NEGATIVE mg/dL (<2.0)
[2017-05-07 07:17] LABS: RBC,URINE RARE /HPF; WBC,URINE RARE /HPF
[2017-05-07 07:18] LABS: BACTERIA,URINE TRACE /HPF
[2017-05-07] MEDS: DABIGATRAN ETEXILATE 150 MG CAPSULE PO SCH ×2 (09:57→22:01)
[2017-05-07] MEDS: POTASSIUM CHLORIDE 10 MEQ TABLET.SA PO SCH (09:58)
[2017-05-07] MEDS: METOPROLOL TARTRATE 50 MG TABLET PO SCH ×2 (09:58→21:59)
[2017-05-07] MEDS: DOFETILIDE 500 MCG CAPSULE PO SCH ×2 (09:59→22:00)
[2017-05-07] MEDS: FINASTERIDE 5 MG TABLET PO SCH (09:59)
[2017-05-07] MEDS: METHOCARBAMOL 500 MG TABLET PO SCH ×2 (09:59→22:00)
[2017-05-07] MEDS: FUROSEMIDE 20 MG TABLET PO SCH (09:59)
[2017-05-07] MEDS: BENZTROPINE MESYLATE 1 MG TABLET PO SCH ×2 (09:59→21:59)
[2017-05-07] MEDS: LISINOPRIL 10 MG TABLET PO SCH (09:59)
[2017-05-07] MEDS: FLUTICASONE NASAL SPRAY 50 MCG/SPRY 120 SPRAY/16 GM NAREB SCH (10:00)
[2017-05-07] MEDS: CYANOCOBALAMIN (VITAMIN B-12) 1,000 MCG TABLET PO SCH (10:00)
[2017-05-07] MEDS: BUDESONIDE/FORMOTEROL 160-4.5 MCG 60 PUFF/6 GM MDI IH SCH ×2 (10:00→22:00)
--- NOTE | 2017-05-07 12:52 | Physician Advisory Note ---
Physician Advisor ProgressNote .: Pursuant to the plan for [facility], I have reviewed the medical record for this patient. Physician Advisor Statement: Please consider documentin. Is Resp Acidosis Acute or Chronic? 2. "obesity with BMI 44.6" 3. Medical necessity: documentation so far sounds like fairly low severity of illness & intensity of service -> Obs appropriate. - If pt was actually quite ill and concerning to attending, and he continues to concern attending clinically & need hospital level of care & monitoring tonight, please document the issues/concerns well to support Inpatient status ( or else his case's Inpatient payment will be "self-denied" by the hospital). Status: Documentation so far is consistent with Outpt Obs level of care. Pt should be Obs, & d/c'd home today - or, if attending finds this reviewer's impression is not accurate, please document further, as above. Thanks! CK
[2017-05-07] MEDS ORDERED: CYCLOBENZAPRINE HCL 10 MG TABLET PO ONE (22:30)
[2017-05-07] MEDS ORDERED: METHYLPREDNISOLONE INJ 125 MG/2 ML SDV IV ONE (22:30)
[2017-05-08] MEDS: IPRATROPIUM/ALBUTEROL 0.5-2.5 MG/3 ML AMPUL NEB SCH ×4 (01:58→20:47)
[2017-05-08] MEDS: CYCLOBENZAPRINE HCL 10 MG TABLET PO SCH ×3 (06:08→22:14)
[2017-05-08] MEDS: METHYLPREDNISOLONE INJ 125 MG/2 ML SDV IV SCH ×3 (06:08→22:16)
[2017-05-08] MEDS: METOPROLOL TARTRATE 50 MG TABLET PO SCH ×2 (09:28→22:15)
[2017-05-08] MEDS: DABIGATRAN ETEXILATE 150 MG CAPSULE PO SCH ×2 (09:29→22:17)
[2017-05-08] MEDS: METHOCARBAMOL 500 MG TABLET PO SCH ×2 (09:32→22:17)
[2017-05-08] MEDS: FINASTERIDE 5 MG TABLET PO SCH (09:32)
[2017-05-08] MEDS: CYANOCOBALAMIN (VITAMIN B-12) 1,000 MCG TABLET PO SCH (09:32)
[2017-05-08] MEDS: FUROSEMIDE 20 MG TABLET PO SCH (09:33)
[2017-05-08] MEDS: BENZTROPINE MESYLATE 1 MG TABLET PO SCH ×2 (09:33→22:15)
[2017-05-08] MEDS: LISINOPRIL 10 MG TABLET PO SCH (09:33)
[2017-05-08] MEDS: FLUTICASONE NASAL SPRAY 50 MCG/SPRY 120 SPRAY/16 GM NAREB SCH (09:34)
[2017-05-08] MEDS: BUDESONIDE/FORMOTEROL 160-4.5 MCG 60 PUFF/6 GM MDI IH SCH ×2 (09:34→22:16)
[2017-05-08] MEDS: DOFETILIDE 500 MCG CAPSULE PO SCH ×2 (09:35→22:16)
[2017-05-08] MEDS: POTASSIUM CHLORIDE 10 MEQ TABLET.SA PO SCH (09:35)
--- NOTE | 2017-05-08 21:05 | PDOC PROGRESS REPORT ---
Subjective Progress Note for:: 05/08/17 Subjective:: Patient was admitted for observation, presently on IV Solu-Medrol for COPD exacerbation Reason For Visit: ACUTE COPD,RESPIRATORY ACIDOSIS Physical Exam Vital Signs: Temp Pulse Resp BP Pulse Ox 98.3 F 81 18 157/89 H 93 05/08/17 19:29 05/08/17 19:29 05/08/17 19:29 05/08/17 19:29 05/08/17 19:29 Intake & Output 05/07/17 05/08/17 05/09/17 06:59 06:59 06:59 Intake Total 345 1440 464 Output Total 700 400 Balance -355 1040 464 Weight 137 kg 136 kg 136 kg General appearance: PRESENT: mild distress Head exam: PRESENT: atraumatic, normocephalic Eye exam: PRESENT: conjunctiva pink, EOMI, PERRLA Neck exam: PRESENT: full ROM Respiratory exam: PRESENT: clear to auscultation martita Cardiovascular exam: PRESENT: RRR, +S1, +S2 Pulses: PRESENT: normal dorsalis pedis pul, +2 pedal pulses bilateral Vascular exam: PRESENT: normal capillary refill GI/Abdominal exam: PRESENT: normal bowel sounds, soft. ABSENT: distended, guarding, mass, organolmegaly, rebound, tenderness Rectal exam: PRESENT: deferred Neurological exam: PRESENT: alert, awake, oriented to person, oriented to place , oriented to time, oriented to situation, CN II-XII grossly intact. ABSENT: motor sensory deficit Psychiatric exam: PRESENT: appropriate affect, normal mood. ABSENT: homicidal ideation, suicidal ideation Skin exam: PRESENT: dry, intact, warm. ABSENT: cyanosis, rash Results Laboratory Results: 05/06/17 18:29 05/06/17 18:29 Impressions: Abdomen/Pelvis CT 05/06/17 00:00 IMPRESSION: No acute findings. Chest X-Ray 05/06/17 00:00 IMPRESSION: NO ACUTE RADIOGRAPHIC FINDING IN THE CHEST. Knee X-Ray 05/06/17 00:00 IMPRESSION: No significant findings. Assessment & Plan - Diagnosis (1) Acute exacerbation of chronic obstructive pulmonary disease (COPD) Is this a current diagnosis for this admission?: Yes (2) Respiratory acidosis Is this a current diagnosis for this admission?: Yes - Plan Summary Plan Summary: Continue IV Solu-Medrol and present treatment
[2017-05-09] MEDS: IPRATROPIUM/ALBUTEROL 0.5-2.5 MG/3 ML AMPUL NEB SCH ×4 (02:25→19:59)
[2017-05-09] MEDS: CYCLOBENZAPRINE HCL 10 MG TABLET PO SCH ×3 (05:14→23:04)
[2017-05-09] MEDS: METHYLPREDNISOLONE INJ 125 MG/2 ML SDV IV SCH ×3 (05:14→23:05)
[2017-05-09] MEDS: CYANOCOBALAMIN (VITAMIN B-12) 1,000 MCG TABLET PO SCH (10:34)
[2017-05-09] MEDS: BENZTROPINE MESYLATE 1 MG TABLET PO SCH ×2 (10:34→23:03)
[2017-05-09] MEDS: BUDESONIDE/FORMOTEROL 160-4.5 MCG 60 PUFF/6 GM MDI IH SCH ×2 (10:34→23:05)
[2017-05-09] MEDS: FUROSEMIDE 20 MG TABLET PO SCH (10:35)
[2017-05-09] MEDS: DABIGATRAN ETEXILATE 150 MG CAPSULE PO SCH ×2 (10:35→23:32)
[2017-05-09] MEDS: FLUTICASONE NASAL SPRAY 50 MCG/SPRY 120 SPRAY/16 GM NAREB SCH (10:35)
[2017-05-09] MEDS: FINASTERIDE 5 MG TABLET PO SCH (10:35)
[2017-05-09] MEDS: DOFETILIDE 500 MCG CAPSULE PO SCH (10:35)
[2017-05-09] MEDS: LISINOPRIL 10 MG TABLET PO SCH (10:36)
[2017-05-09] MEDS: METHOCARBAMOL 500 MG TABLET PO SCH ×2 (10:36→23:31)
[2017-05-09] MEDS: METOPROLOL TARTRATE 50 MG TABLET PO SCH ×2 (10:36→23:04)
[2017-05-09] MEDS: POTASSIUM CHLORIDE 10 MEQ TABLET.SA PO SCH (10:36)
[2017-05-09] MEDS ORDERED: LANSOPRAZOLE 30 MG TAB.RAP.DR PO ONE (15:15)
--- NOTE | 2017-05-09 18:14 | PDOC PROGRESS REPORT ---
Subjective Progress Note for:: 05/09/17 Subjective:: Patient was seen by the bedside, he gets very short of breath on very minimal exertion, he was started on IV Solu-Medrol in the last 2 days, on auscultation of his lung he is no longer wheezing but he is very symptomatic with shortness of breath Reason For Visit: ACUTE COPD,RESPIRATORY ACIDOSIS Physical Exam Vital Signs: Temp Pulse Resp BP Pulse Ox 98.4 F 76 20 164/97 H 93 05/09/17 15:27 05/09/17 15:27 05/09/17 15:27 05/09/17 15:27 05/09/17 15:51 Intake & Output 05/08/17 05/09/17 05/10/17 06:59 06:59 06:59 Intake Total 1440 1600 946 Output Total 400 Balance 1040 1600 946 Weight 136 kg 133.1 kg General appearance: PRESENT: mild distress Head exam: PRESENT: atraumatic, normocephalic Eye exam: PRESENT: PERRLA Neck exam: PRESENT: full ROM Respiratory exam: PRESENT: clear to auscultation martita Cardiovascular exam: PRESENT: RRR, +S1, +S2 Pulses: PRESENT: normal dorsalis pedis pul, +2 pedal pulses bilateral Vascular exam: PRESENT: normal capillary refill GI/Abdominal exam: PRESENT: normal bowel sounds, soft Rectal exam: PRESENT: deferred Neurological exam: PRESENT: alert. ABSENT: motor sensory deficit Psychiatric exam: PRESENT: appropriate affect, normal mood Skin exam: PRESENT: dry, intact, warm. ABSENT: cyanosis, rash Results Laboratory Results: 05/06/17 18:29 05/06/17 18:29 Impressions: Abdomen/Pelvis CT 05/06/17 00:00 IMPRESSION: No acute findings. Chest X-Ray 05/06/17 00:00 IMPRESSION: NO ACUTE RADIOGRAPHIC FINDING IN THE CHEST. Knee X-Ray 05/06/17 00:00 IMPRESSION: No significant findings. Assessment & Plan - Diagnosis (1) Acute exacerbation of chronic obstructive pulmonary disease (COPD) Is this a current diagnosis for this admission?: Yes Plan: Patient is very symptomatic with shortness of breath, the dose of Solu-Medrol will be reduced to 60 mg IV every 8, consultation will be requested from pulmonary (2) Respiratory acidosis Is this a current diagnosis for this admission?: Yes (3) Morbid obesity Is this a current diagnosis for this admission?: Yes
[2017-05-10 00:03] LABS: ABSOLUTE BASOPHILS # (AUTO) 0.1 10^3/uL (0.0-0.2); ABSOLUTE LYMPHOCYTES (AUTO) 1.1 10^3/uL (0.5-4.7); ABSOLUTE MONOCYTES (AUTO) 0.8 10^3/uL (0.1-1.4); ABSOLUTE NEUT (AUTO) 12.9 10^3/uL (1.7-8.2); BASOPHILS % (AUTO) 0.5 % (0-2); EOSINOPHILS % (AUTO) 0.1 % (0-6); HEMATOCRIT 49.9 % (37.9-51.0); HGB HCT DIFFERENCE -1.9; LYMPHOCYTES % (AUTO) 7.5 % (13-45); MEAN CORPUSCULAR HEMOGLOBIN 25.9 pg (27.0-33.4); MEAN CORPUSCULAR HGB CONC 32.1 g/dL (32.0-36.0); MEAN CORPUSCULAR VOLUME 81 fl (80-97); MONOCYTES % (AUTO) 5.2 % (3-13); RED BLOOD COUNT 6.17 10^6/uL (4.35-5.55); RED CELL DISTRIBUTION WIDTH 17.8 % (11.5-14.0); SEGMENTED NEUTROPHILS % (AUTO) 86.7 % (42-78); WHITE BLOOD COUNT 14.8 10^3/uL (4.0-10.5)
[2017-05-10 00:22] LABS: ANION GAP 12 (5-19); BLOOD UREA NITROGEN 23 mg/dL (7-20); CALCIUM 10.2 mg/dL (8.4-10.2); CARBON DIOXIDE 32 mmol/L (22-30); CHLORIDE 102 mmol/L (98-107); CREATININE RESULT 1.41 mg/dL (0.52-1.25); GLUCOSE 194 mg/dL (75-110); POTASSIUM 3.7 mmol/L (3.6-5.0); SODIUM 145.9 mmol/L (137-145)
[2017-05-10] MEDS ORDERED: DOFETILIDE 500 MCG CAPSULE ONE (00:34)
[2017-05-10] MEDS: DOFETILIDE 500 MCG CAPSULE PO SCH ×3 (00:53→21:50)
[2017-05-10] MEDS: IPRATROPIUM/ALBUTEROL 0.5-2.5 MG/3 ML AMPUL NEB SCH ×4 (01:49→19:46)
[2017-05-10] MEDS: CYCLOBENZAPRINE HCL 10 MG TABLET PO SCH ×3 (06:04→21:52)
[2017-05-10] MEDS: LANSOPRAZOLE 30 MG TAB.RAP.DR PO SCH (06:04)
[2017-05-10] MEDS: METHYLPREDNISOLONE INJ 125 MG/2 ML SDV IV SCH ×2 (06:05→14:15)
[2017-05-10] MEDS ORDERED: LANSOPRAZOLE 30 MG TAB.RAP.DR PO SCH (10:00)
[2017-05-10] MEDS ORDERED: ONDANSETRON HCL INJ/PF 4 MG/2 ML SDV IV PRN (10:32)
[2017-05-10] MEDS ORDERED: ONDANSETRON HCL INJ/PF 4 MG/2 ML SDV ONE (10:40)
[2017-05-10] MEDS: BENZTROPINE MESYLATE 1 MG TABLET PO SCH ×2 (11:00→21:52)
[2017-05-10] MEDS: BUDESONIDE/FORMOTEROL 160-4.5 MCG 60 PUFF/6 GM MDI IH SCH ×2 (11:00→21:49)
[2017-05-10] MEDS: CYANOCOBALAMIN (VITAMIN B-12) 1,000 MCG TABLET PO SCH (11:01)
[2017-05-10] MEDS: FUROSEMIDE 20 MG TABLET PO SCH (11:01)
[2017-05-10] MEDS: POTASSIUM CHLORIDE 10 MEQ TABLET.SA PO SCH (11:02)
[2017-05-10] MEDS: FINASTERIDE 5 MG TABLET PO SCH (11:02)
[2017-05-10] MEDS: LISINOPRIL 10 MG TABLET PO SCH (11:03)
[2017-05-10] MEDS: METOPROLOL TARTRATE 50 MG TABLET PO SCH ×2 (11:03→21:50)
[2017-05-10] MEDS: FLUTICASONE NASAL SPRAY 50 MCG/SPRY 120 SPRAY/16 GM NAREB SCH (11:03)
[2017-05-10] MEDS: DABIGATRAN ETEXILATE 150 MG CAPSULE PO SCH ×2 (11:04→21:51)
[2017-05-10] MEDS: METHOCARBAMOL 500 MG TABLET PO SCH ×2 (11:13→21:52)
--- NOTE | 2017-05-10 12:46 | PDOC CONSULTATION ---
Consultation Consult Date: 05/10/17 Attending physician:: CARMEN GANT Consult reason:: Dyspnea History of Present Illness Admission Date/PCP: 05/06/17 18:00 CARMEN GANT MD History of Present Illness: KRISH RAMOS JR is a 61 year old male, Was a direct admit to the hospital from the primary care's office has long history of COPD and respiratory failure O2 dependent he states he had been wheezing for 2-3 days and had a cough that was dry nonproductive he is denies nausea vomiting fevers chills runny nose sore throat but he does admit some diarrhea he denies hemoptysis his PPD status is unknown he is he denies history of chronic lung disease as a child or adolescent he admits to exposures to chronic smoke as a child as well as an adult 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 He has no pets and no recent travel he does have some has some tightness in his chest on occasions he sleeps on 2 pillows with occasional PND occasional nocturnal cough and occasional edema. He admits to snoring and has a diagnosis of obstructive sleep apnea he wears CPAP but is not sure of the pressure assigned to that particular material is particular machine Past Medical History Cardiac Medical History: Reports: Atrial Fibrillation, Congestive Heart Failure , Coronary Artery Disease, Myocardial Infarction, Hyperlipidema, Hypertension, Peripheral Vascular Disease Pulmonary Medical History: Reports: Asthma, Bronchitis, Chronic Obstructive Pulmonary Disease (COPD), Pneumonia - X2, Sleep Apnea GI Medical History: Reports: Gastroesophageal Reflux Disease, Hiatal Hernia Musculoskeltal Medical History: Reports: Arthritis Psychiatric Medical History: Reports: Depression, Post Traumatic Stress Disorder , Schizoaffective Disorder Hematology: Reports: Anemia - ON IRON PILLS Past Surgical History Past Surgical History: Reports: Herniorrhaphy, Pacemaker - Pacemaker defibrillator Social History Information Source: Patient, [facility] Records Lives with: Family Smoking Status: Former Smoker Cigarettes Packs Per Day: 1 Number of Years Smokin Passive smoke exposure as: Both Frequency of Alcohol Use: None Hx Recreational Drug Use: No Drugs: None Hx Prescription Drug Abuse: No Do you have pets?: No Have you had any respiratory illnesses as a child?: No Have you been exposed to any sick contacts recently?: No Have you had any recent respiratory illnesses?: No Have you travelled outside of [place] in the past 12 months?: No Family History Family History: Arthritis, CAD, CVA, DM, Hyperlipidemia, Hypertension, Malignancy Parental Family History Reviewed: Yes Children Family History Reviewed: Yes Sibling(s) Family History Reviewed.: Yes Medication/Allergy Home Medications: Benztropine Mesylate [Benztropine Mesylate 2 mg Tablet] 2 mg PO Q12 05/06/17 Budesonide/Formoterol Fumarate [Symbicort Hfa 160-4.5 Mcg Inhaler 6 gm] 2 puff IH Q12 05/06/17 Clonazepam [Klonopin 1 mg Tablet] 1 mg PO Q12HP PRN 05/06/17 Cyanocobalamin (Vitamin B-12) [Vitamin B-12] 1,000 mcg PO DAILY 05/06/17 Dabigatran Etexilate Mesylate [Pradaxa 150 mg Capsule] 150 mg PO Q12 05/06/17 Dofetilide [Tikosyn 500 Mcg Capsule] 500 mcg PO Q12 05/06/17 Doxepin HCl [Silenor] 6 mg PO QHS 05/06/17 Finasteride [Proscar 5 mg Tablet] 5 mg PO DAILY 05/06/17 Fluticasone Propionate [Flonase Nasal Hyden 50 Mcg/Hyden 16 gm] 1 spray NAREB DAILY 05/06/17 Furosemide [Lasix 20 mg Tablet] 20 mg PO DAILY 05/06/17 Lisinopril [Prinivil 10 mg Tablet] 10 mg PO DAILY 05/06/17 Methocarbamol [Robaxin 500 mg Tablet] 500 mg PO Q12 05/06/17 Metoprolol Tartrate [Lopressor 50 mg Tablet] 50 mg PO Q12 05/06/17 Nitroglycerin [Nitrostat 0.4 mg (1/150 Gr) Tabs 25/Bottle] 1 tab SL Q5MP PRN 09/17 Potassium Chloride [Klor-Con 10 Meq Tablet.sa] 10 meq PO DAILY 05/06/17 Allergies/Adverse Reactions: latex [Latex] Allergy (Severe, Verified 02/14/17 18:39) WHITTAKER SKIN Review of Systems Constitutional: PRESENT: chills, fatigue, fever(s), night sweats, weight gain. ABSENT: anorexia, headache(s), weakness, weight loss Eyes: ABSENT: visual disturbances Ears: ABSENT: hearing changes Nose, Mouth, and Throat: ABSENT: mouth pain, sore throat Cardiovascular: PRESENT: dyspnea on exertion, edema, orthropnea. ABSENT: palpitations Respiratory: PRESENT: cough, dyspnea. ABSENT: hemoptysis Gastrointestinal: PRESENT: abdominal pain, diarrhea, nausea. ABSENT: bloating, coffee ground emesis, constipation, dysphagia, heartburn, hematemesis, hematochezia, melena, vomiting Genitourinary: PRESENT: nocturia. ABSENT: difficulty urinating, dysuria, hematuria Musculoskeletal: ABSENT: deformity, joint swelling Integumentary: ABSENT: pruritus, rash Neurological: ABSENT: convulsions, frequent falls, memory loss Psychiatric: ABSENT: hallucinations, homidical ideation, suicidal ideation Endocrine: ABSENT: cold intolerance, heat intolerance Hematologic/Lymphatic: ABSENT: easy bruising Physical Exam Vital Signs: Temp Pulse Resp BP Pulse Ox 98.7 F 84 19 148/92 H 93 05/10/17 11:23 05/10/17 11:23 05/10/17 11:23 05/10/17 11:23 05/10/17 11:23 Intake & Output 05/09/17 05/10/17 05/11/17 06:59 06:59 06:59 Intake Total 1600 1076 Balance 1600 1076 Weight 133.1 kg 129.2 kg General appearance: PRESENT: no acute distress, cooperative, disheveled, obese, well-developed, well-nourished. ABSENT: mild distress, morbidly obese, severe distress, thin Head exam: PRESENT: atraumatic, normocephalic Eye exam: PRESENT: conjunctiva pale, EOMI. ABSENT: conjunctival injection, conjunctiva pink, nystagmus, periorbital swelling, scleral icterus Mouth exam: PRESENT: neck supple, tongue midline. ABSENT: dry mucosa, laceration, moist Teeth exam: PRESENT: poor dentation Neck exam: ABSENT: carotid bruit, JVD, lymphadenopathy, thyromegaly, tracheal deviation, tracheostomy Respiratory exam: PRESENT: decreased breath sounds, prolonged expiratory phas, rales, rhonchi, symmetrical, unlabored, wheezes. ABSENT: accessory muscle use, chest wall tenderness, clear to auscultation martita, crackles, stridor, tachypnea Cardiovascular exam: PRESENT: RRR, +S1, +S2. ABSENT: rubs Pulses: PRESENT: normal radial pulses GI/Abdominal exam: PRESENT: diminished bowel sounds, soft, tenderness. ABSENT: ascites, distended, firm, guarding, hyperactive bowel sounds, hypoactive bowel sounds, mass, organolmegaly, rebound Extremities exam: PRESENT: calf tenderness, clubbing. ABSENT: joint swelling Musculoskeletal exam: PRESENT: dislocation. ABSENT: deformity Neurological exam: PRESENT: alert, awake Psychiatric exam: PRESENT: normal mood Skin exam: PRESENT: dry, warm Results Laboratory Results: 05/09/17 23:56 05/09/17 23:56 05/09/17 05/09/17 23:56 23:56 WBC 14.8 H RBC 6.17 H Hgb 16.0 Hct 49.9 MCV 81 MCH 25.9 L MCHC 32.1 RDW 17.8 H Plt Count 132 L Seg Neutrophils % 86.7 H Lymphocytes % 7.5 L Monocytes % 5.2 Eosinophils % 0.1 Basophils % 0.5 Absolute Neutrophils 12.9 H Absolute Lymphocytes 1.1 Absolute Monocytes 0.8 Absolute Eosinophils 0.0 Absolute Basophils 0.1 Sodium 145.9 H Potassium 3.7 Chloride 102 Carbon Dioxide 32 H Anion Gap 12 BUN 23 H Creatinine 1.41 H Est GFR ( Amer) > 60 Est GFR (Non-Af Amer) 51 L Glucose 194 H Calcium 10.2 Impressions: Abdomen/Pelvis CT 05/06/17 00:00 IMPRESSION: No acute findings. Chest X-Ray 05/06/17 00:00 IMPRESSION: NO ACUTE RADIOGRAPHIC FINDING IN THE CHEST. Knee X-Ray 05/06/17 00:00 IMPRESSION: No significant findings. Assessment & Plan - Diagnosis (1) Acute exacerbation of chronic obstructive pulmonary disease (COPD) Is this a current diagnosis for this admission?: Yes Plan: Generic Name Dose Route Start Last Admin Trade Name Freq PRN Reason Stop Dose Admin Budesonide/Formoterol Fumarate 2 puff 05/06/17 22:00 05/10/17 11:00 Symbicort Hfa 160-4.5 Mcg Inhaler 6 Gm IH 06/05/17 21:59 2 puff Q12 LILI Fluticasone Propionate 1 spray 05/07/17 10:00 05/10/17 11:03 Flonase Nasal Hyden 50 Mcg/Hyden 16 Gm NAREB 06/06/17 09:59 1 spray DAILY LILI Methylprednisolone Sodium Succinate 60 mg 05/09/17 18:10 05/10/17 06:05 Solu-Medrol Inj/Pf 125 Mg/2 Ml Sdv IV 06/08/17 18:09 60 mg Q8 LILI Albuterol/Ipratropium 3 ml 05/06/17 20:00 05/10/17 07:52 Duoneb 3 Ml Ampul NEB 06/05/17 19:59 3 ml RTQ6 LILI (2) Body mass index (BMI) 40.0-44.9, adult Is this a current diagnosis for this admission?: Yes (3) Chronic atrial fibrillation Is this a current diagnosis for this admission?: Yes Plan: Hemodynamically stable at this time (4) Sleep apnea syndrome Qualifiers: Sleep apnea type: unspecified type Qualified Code(s): G47.30 - Sleep apnea , unspecified Is this a current diagnosis for this admission?: Yes Plan: Initiate CPAP +10 cm H2O with 2 L O2 nocturnal trend oximetry
[2017-05-10] MEDS ORDERED: METHYLPREDNISOLONE INJ 125 MG/2 ML SDV IV SCH (21:41)
--- NOTE | 2017-05-10 21:41 | PDOC PROGRESS REPORT ---
Subjective Progress Note for:: 05/10/17 Subjective:: He was seen by pulmonary today, he was started on noninvasive positive pressure ventilation, CPAP Reason For Visit: ACUTE COPD,RESPIRATORY ACIDOSIS Physical Exam Vital Signs: Temp Pulse Resp BP Pulse Ox 97.7 F 83 20 137/83 H 94 05/10/17 15:28 05/10/17 15:28 05/10/17 15:28 05/10/17 15:28 05/10/17 16:32 Pulse Oximeter Nocturnal Start: 05/10/17 12: 47 Freq: RTQ4 Status: Active Document 05/10/17 16:32 [facility] (Rec: 05/10/17 16:33 [facility] [email or web address]) Nocturnal Pulse Oximetry Equipment Usage Equipment in Use Nocturnal Spo2 Charge Charge Now Oxygen Delivery Method (includes room Room Air air) O2 Sat by Pulse Oximetry (92-100) 94 Continuous SpO2 Machine # N-1 Intake & Output 05/09/17 05/10/17 05/11/17 06:59 06:59 06:59 Intake Total 1600 1076 626 Balance 1600 1076 626 Weight 133.1 kg 129.2 kg General appearance: PRESENT: no acute distress, well-developed, well-nourished Head exam: PRESENT: atraumatic, normocephalic Eye exam: PRESENT: conjunctiva pink, EOMI, PERRLA Ear exam: PRESENT: normal external ear exam Mouth exam: PRESENT: moist, tongue midline Neck exam: PRESENT: full ROM. ABSENT: carotid bruit, JVD, lymphadenopathy, thyromegaly Respiratory exam: PRESENT: clear to auscultation martita Cardiovascular exam: PRESENT: RRR, +S1, +S2 Pulses: PRESENT: normal dorsalis pedis pul, +2 pedal pulses bilateral Vascular exam: PRESENT: normal capillary refill GI/Abdominal exam: PRESENT: normal bowel sounds, soft Rectal exam: PRESENT: deferred Neurological exam: PRESENT: alert, awake, oriented to person, oriented to place , oriented to time, oriented to situation, CN II-XII grossly intact Psychiatric exam: PRESENT: appropriate affect, normal mood Skin exam: PRESENT: dry, intact, warm. ABSENT: cyanosis, rash Results Laboratory Results: 05/09/17 23:56 05/09/17 23:56 05/09/17 05/09/17 23:56 23:56 WBC 14.8 H RBC 6.17 H Hgb 16.0 Hct 49.9 MCV 81 MCH 25.9 L MCHC 32.1 RDW 17.8 H Plt Count 132 L Seg Neutrophils % 86.7 H Lymphocytes % 7.5 L Monocytes % 5.2 Eosinophils % 0.1 Basophils % 0.5 Absolute Neutrophils 12.9 H Absolute Lymphocytes 1.1 Absolute Monocytes 0.8 Absolute Eosinophils 0.0 Absolute Basophils 0.1 Sodium 145.9 H Potassium 3.7 Chloride 102 Carbon Dioxide 32 H Anion Gap 12 BUN 23 H Creatinine 1.41 H Est GFR ( Amer) > 60 Est GFR (Non-Af Amer) 51 L Glucose 194 H Calcium 10.2 Impressions: Abdomen/Pelvis CT 05/06/17 00:00 IMPRESSION: No acute findings. Chest X-Ray 05/06/17 00:00 IMPRESSION: NO ACUTE RADIOGRAPHIC FINDING IN THE CHEST. Knee X-Ray 05/06/17 00:00 IMPRESSION: No significant findings. Assessment & Plan - Diagnosis (1) Acute exacerbation of chronic obstructive pulmonary disease (COPD) Is this a current diagnosis for this admission?: Yes (2) Respiratory acidosis Is this a current diagnosis for this admission?: Yes (3) Abdominal distension Is this a current diagnosis for this admission?: Yes (4) Obstructive sleep apnea Is this a current diagnosis for this admission?: Yes
[2017-05-10] MEDS: METHYLPREDNISOLONE INJ 40 MG/1 ML SDV IV SCH (22:54)
[2017-05-11] MEDS: IPRATROPIUM/ALBUTEROL 0.5-2.5 MG/3 ML AMPUL NEB SCH ×4 (02:11→20:17)
[2017-05-11] MEDS: CYCLOBENZAPRINE HCL 10 MG TABLET PO SCH ×3 (06:13→22:06)
[2017-05-11] MEDS: LANSOPRAZOLE 30 MG TAB.RAP.DR PO SCH (06:13)
[2017-05-11] MEDS: METHYLPREDNISOLONE INJ 40 MG/1 ML SDV IV SCH ×3 (06:13→22:05)
[2017-05-11] MEDS: METHOCARBAMOL 500 MG TABLET PO SCH ×2 (10:23→22:05)
[2017-05-11] MEDS: DABIGATRAN ETEXILATE 150 MG CAPSULE PO SCH ×2 (10:23→22:05)
[2017-05-11] MEDS: DOFETILIDE 500 MCG CAPSULE PO SCH ×2 (10:23→22:06)
[2017-05-11] MEDS: FLUTICASONE NASAL SPRAY 50 MCG/SPRY 120 SPRAY/16 GM NAREB SCH (10:24)
[2017-05-11] MEDS: BENZTROPINE MESYLATE 1 MG TABLET PO SCH ×2 (10:24→22:06)
[2017-05-11] MEDS: BUDESONIDE/FORMOTEROL 160-4.5 MCG 60 PUFF/6 GM MDI IH SCH ×2 (10:24→22:05)
[2017-05-11] MEDS: METOPROLOL TARTRATE 50 MG TABLET PO SCH ×2 (10:25→22:10)
[2017-05-11] MEDS: FUROSEMIDE 20 MG TABLET PO SCH (10:25)
[2017-05-11] MEDS: CYANOCOBALAMIN (VITAMIN B-12) 1,000 MCG TABLET PO SCH (10:25)
[2017-05-11] MEDS: POTASSIUM CHLORIDE 10 MEQ TABLET.SA PO SCH (10:25)
[2017-05-11] MEDS: FINASTERIDE 5 MG TABLET PO SCH (10:25)
[2017-05-11] MEDS: LISINOPRIL 10 MG TABLET PO SCH (10:26)
--- NOTE | 2017-05-11 12:32 | PDOC PROGRESS REPORT ---
Subjective Progress Note for:: 05/11/17 Subjective:: Resolved episode of nausea and stomach upset last night. Breathing is improving. No chest pain. No fever or chills. Reason For Visit: ACUTE COPD,RESPIRATORY ACIDOSIS Physical Exam Vital Signs: Temp Pulse Resp BP Pulse Ox 98.3 F 68 18 130/82 H 90 L 05/11/17 11:36 05/11/17 11:36 05/11/17 11:36 05/11/17 11:36 05/11/17 11:36 Pulse Oximeter Nocturnal Start: 05/10/17 12: 47 Freq: RTQ4 Status: Complete Document 05/11/17 04:03 [facility] (Rec: 05/11/17 04:06 [facility] [email or web address]) Nocturnal Pulse Oximetry Equipment Usage Equipment in Use Oxygen Delivery Method (includes room Bi-pap air) O2 Sat by Pulse Oximetry (92-100) 98 Continuous Pulse Oximeter Set Up Yes Continuous SpO2 Machine # N-1 Intake & Output 05/10/17 05/11/17 05/12/17 06:59 06:59 06:59 Intake Total 1076 1126 Balance 1076 1126 Weight 129.2 kg General appearance: PRESENT: no acute distress, morbidly obese Head exam: PRESENT: atraumatic, normocephalic Eye exam: PRESENT: conjunctiva pink, EOMI, PERRLA. ABSENT: scleral icterus Mouth exam: PRESENT: moist Respiratory exam: PRESENT: clear to auscultation martita Cardiovascular exam: PRESENT: RRR. ABSENT: diastolic murmur, rubs, systolic murmur Vascular exam: PRESENT: normal capillary refill. ABSENT: pallor GI/Abdominal exam: PRESENT: normal bowel sounds, soft. ABSENT: distended, guarding, mass, organolmegaly, rebound, tenderness Extremities exam: ABSENT: pedal edema Musculoskeletal exam: PRESENT: normal inspection Neurological exam: PRESENT: alert, awake, oriented to person, oriented to place , oriented to time, oriented to situation, CN II-XII grossly intact, other - occasional involuntary muscle jerking in extremities. ABSENT: motor sensory deficit Psychiatric exam: PRESENT: appropriate affect, normal mood. ABSENT: homicidal ideation, suicidal ideation Skin exam: PRESENT: dry, intact, warm. ABSENT: cyanosis, rash Results Laboratory Results: 05/09/17 23:56 05/09/17 23:56 Impressions: Abdomen/Pelvis CT 05/06/17 00:00 IMPRESSION: No acute findings. Chest X-Ray 05/06/17 00:00 IMPRESSION: NO ACUTE RADIOGRAPHIC FINDING IN THE CHEST. Knee X-Ray 05/06/17 00:00 IMPRESSION: No significant findings. Assessment & Plan - Diagnosis (1) Acute exacerbation of chronic obstructive pulmonary disease (COPD) Is this a current diagnosis for this admission?: Yes Plan: See covering attending physician orders. (2) Respiratory acidosis Is this a current diagnosis for this admission?: Yes Plan: See covering attending physician orders. (3) Abdominal distension Is this a current diagnosis for this admission?: Yes Plan: See covering attending physician orders. (4) Obstructive sleep apnea Is this a current diagnosis for this admission?: Yes Plan: See covering attending physician orders. (5) HTN (hypertension) Qualifiers: Hypertension type: essential hypertension Qualified Code(s): I10 - Essential (primary) hypertension Is this a current diagnosis for this admission?: Yes Plan: See covering attending physician orders. (6) CAD (coronary artery disease) Qualifiers: Coronary Disease-Associated Artery/Lesion type: [place] artery [place] vs. transplanted heart: [place] heart Associated angina: without angina Qualified Code(s): I25.10 - Atherosclerotic heart disease of [place] coronary artery without angina pectoris Is this a current diagnosis for this admission?: Yes Plan: See covering attending physician orders. - Time Time Spent with patient: 25-34 minutes Medications reviewed and adjusted accordingly: Yes Anticipated discharge: Home with Homehealth Within: Other - Inpatient Certification Based on my medical assessment, after consideration of the patient's comorbidities, presenting symptoms, or acuity I expect that the services needed warrant INPATIENT care.: Yes I certify that my determination is in accordance with my understanding of Medicare's requirements for reasonable and necessary INPATIENT services [42 CFR 412.3e].: Yes Medical Necessity: Need Close Monitoring Due to Risk of Patient Decompensation, Need For Continuous Telemetry Monitoring, Need for Nebulizer Therapy and Monitoring of Response, Risk of Complication if Not Cared For in Hospital 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 Continue all current medication management.
[2017-05-12] MEDS: IPRATROPIUM/ALBUTEROL 0.5-2.5 MG/3 ML AMPUL NEB SCH ×4 (02:11→20:01)
[2017-05-12] MEDS: CLONAZEPAM 1 MG TABLET PO PRN ×2 (02:44→22:13)
[2017-05-12 05:20] LABS: ABSOLUTE LYMPHOCYTES (AUTO) 0.9 10^3/uL (0.5-4.7); ABSOLUTE MONOCYTES (AUTO) 0.7 10^3/uL (0.1-1.4); ABSOLUTE NEUT (AUTO) 8.6 10^3/uL (1.7-8.2); HEMATOCRIT 45.3 % (37.9-51.0); HEMOGLOBIN 14.6 g/dL (13.5-17.0); HGB HCT DIFFERENCE -1.5; LYMPHOCYTES % (AUTO) 8.8 % (13-45); MEAN CORPUSCULAR HEMOGLOBIN 26.2 pg (27.0-33.4); MEAN CORPUSCULAR HGB CONC 32.2 g/dL (32.0-36.0); MEAN CORPUSCULAR VOLUME 82 fl (80-97); MONOCYTES % (AUTO) 7.2 % (3-13); RED BLOOD COUNT 5.57 10^6/uL (4.35-5.55); RED CELL DISTRIBUTION WIDTH 17.3 % (11.5-14.0); WHITE BLOOD COUNT 10.2 10^3/uL (4.0-10.5)
[2017-05-12 05:35] LABS: ALANINE AMINOTRANSFERASE 31 U/L (21-72); ALBUMIN 3.4 g/dL (3.5-5.0); ALKALINE PHOSPHATASE 75 U/L (38-126); ANION GAP 15 (5-19); ASPARTATE AMINO TRANSFERASE 13 U/L (17-59); BILIRUBIN,DIRECT 0.3 mg/dL (0.0-0.4); BILIRUBIN,TOTAL 0.6 mg/dL (0.2-1.3); BLOOD UREA NITROGEN 25 mg/dL (7-20); CALCIUM 8.6 mg/dL (8.4-10.2); CARBON DIOXIDE 25 mmol/L (22-30); CHLORIDE 104 mmol/L (98-107); CREATININE RESULT 1.21 mg/dL (0.52-1.25); GLUCOSE 179 mg/dL (75-110); POTASSIUM 4.1 mmol/L (3.6-5.0); SODIUM 143.8 mmol/L (137-145); TOTAL PROTEIN 5.9 g/dL (6.3-8.2)
[2017-05-12] MEDS: METHYLPREDNISOLONE INJ 40 MG/1 ML SDV IV SCH (06:59)
[2017-05-12] MEDS: LANSOPRAZOLE 30 MG TAB.RAP.DR PO SCH (06:59)
[2017-05-12] MEDS: CYCLOBENZAPRINE HCL 10 MG TABLET PO SCH (06:59)
[2017-05-12] MEDS: BENZTROPINE MESYLATE 1 MG TABLET PO SCH ×2 (09:15→22:14)
[2017-05-12] MEDS: FINASTERIDE 5 MG TABLET PO SCH (09:15)
[2017-05-12] MEDS: POTASSIUM CHLORIDE 10 MEQ TABLET.SA PO SCH (09:15)
[2017-05-12] MEDS: LISINOPRIL 10 MG TABLET PO SCH (09:15)
[2017-05-12] MEDS: FLUTICASONE NASAL SPRAY 50 MCG/SPRY 120 SPRAY/16 GM NAREB SCH (09:16)
[2017-05-12] MEDS: BUDESONIDE/FORMOTEROL 160-4.5 MCG 60 PUFF/6 GM MDI IH SCH ×2 (09:16→22:14)
[2017-05-12] MEDS: FUROSEMIDE 20 MG TABLET PO SCH (09:16)
[2017-05-12] MEDS: DOFETILIDE 500 MCG CAPSULE PO SCH ×2 (09:16→22:15)
[2017-05-12] MEDS: METOPROLOL TARTRATE 50 MG TABLET PO SCH ×2 (09:16→22:13)
[2017-05-12] MEDS: CYANOCOBALAMIN (VITAMIN B-12) 1,000 MCG TABLET PO SCH (09:16)
[2017-05-12] MEDS: METHOCARBAMOL 500 MG TABLET PO SCH (09:17)
[2017-05-12] MEDS: DABIGATRAN ETEXILATE 150 MG CAPSULE PO SCH ×2 (09:17→22:15)
[2017-05-12] MEDS ORDERED: METOPROLOL TARTRATE PF/INJ 5 MG/5 ML SDV IV ONE ×2 (10:39→11:30)
--- NOTE | 2017-05-12 10:48 | PDOC PROGRESS REPORT ---
Subjective Progress Note for:: 05/12/17 Subjective:: Patient denied any chest pain but reported dizziness. There has been new rhythm of atrial fibrillation with rapid ventricular rate. He denied palpitation or difficulty with breathing. No nausea or vomiting. Reason For Visit: ACUTE COPD,RESPIRATORY ACIDOSIS Physical Exam Vital Signs: Temp Pulse Resp BP Pulse Ox 98.1 F 146 H 24 H 117/71 95 05/12/17 09:03 05/12/17 09:03 05/12/17 09:03 05/12/17 09:03 05/12/17 09:03 Pulse Oximeter Nocturnal Start: 05/10/17 12: 47 Freq: RTQ4 Status: Complete Document 05/11/17 04:03 [facility] (Rec: 05/11/17 04:06 [facility] [email or web address]) Nocturnal Pulse Oximetry Equipment Usage Equipment in Use Oxygen Delivery Method (includes room Bi-pap air) O2 Sat by Pulse Oximetry (92-100) 98 Continuous Pulse Oximeter Set Up Yes Continuous SpO2 Machine # N-1 Intake & Output 05/11/17 05/12/17 05/13/17 06:59 06:59 06:59 Intake Total 1126 1690 Balance 1126 1690 Physical Exam: General appearance: PRESENT: no acute distress, morbidly obese Head exam: PRESENT: atraumatic, normocephalic Eye exam: PRESENT: conjunctiva pink, EOMI, PERRLA. ABSENT: scleral icterus Mouth exam: PRESENT: moist Respiratory exam: PRESENT: clear to auscultation martita Cardiovascular exam: PRESENT: Irregular rhythm. ABSENT: diastolic murmur, rubs , systolic murmur Vascular exam: PRESENT: normal capillary refill. ABSENT: pallor GI/Abdominal exam: PRESENT: normal bowel sounds, soft. ABSENT: distended, guarding, mass, organomegaly, rebound, tenderness Extremities exam: ABSENT: pedal edema Musculoskeletal exam: PRESENT: normal inspection Neurological exam: PRESENT: alert, awake, oriented to person, oriented to place , oriented to time, oriented to situation, CN II-XII grossly intact, other - occasional involuntary muscle jerking in extremities. ABSENT: motor sensory deficit Psychiatric exam: PRESENT: appropriate affect, normal mood. ABSENT: homicidal ideation, suicidal ideation Skin exam: PRESENT: dry, intact, warm. ABSENT: cyanosis, rash Results Laboratory Results: 05/12/17 03:52 05/12/17 03:52 05/12/17 05/12/17 03:52 03:52 WBC 10.2 RBC 5.57 H Hgb 14.6 Hct 45.3 MCV 82 MCH 26.2 L MCHC 32.2 RDW 17.3 H Plt Count 122 L Seg Neutrophils % 84.0 H Lymphocytes % 8.8 L Monocytes % 7.2 Eosinophils % 0.0 Basophils % 0.0 Absolute Neutrophils 8.6 H Absolute Lymphocytes 0.9 Absolute Monocytes 0.7 Absolute Eosinophils 0.0 Absolute Basophils 0.0 Sodium 143.8 Potassium 4.1 Chloride 104 Carbon Dioxide 25 Anion Gap 15 BUN 25 H Creatinine 1.21 Est GFR ( Amer) > 60 Est GFR (Non-Af Amer) > 60 Glucose 179 H Calcium 8.6 Total Bilirubin 0.6 AST 13 L ALT 31 Alkaline Phosphatase 75 Total Protein 5.9 L Albumin 3.4 L Impressions: Abdomen/Pelvis CT 05/06/17 00:00 IMPRESSION: No acute findings. Chest X-Ray 05/06/17 00:00 IMPRESSION: NO ACUTE RADIOGRAPHIC FINDING IN THE CHEST. Knee X-Ray 05/06/17 00:00 IMPRESSION: No significant findings. Assessment & Plan - Diagnosis (1) Acute exacerbation of chronic obstructive pulmonary disease (COPD) Is this a current diagnosis for this admission?: Yes (2) Respiratory acidosis Is this a current diagnosis for this admission?: Yes (3) Abdominal distension Is this a current diagnosis for this admission?: Yes (4) Obstructive sleep apnea Is this a current diagnosis for this admission?: Yes (5) HTN (hypertension) Qualifiers: Hypertension type: essential hypertension Qualified Code(s): I10 - Essential (primary) hypertension Is this a current diagnosis for this admission?: Yes (6) CAD (coronary artery disease) Qualifiers: Coronary Disease-Associated Artery/Lesion type: [place] artery [place] vs. transplanted heart: [place] heart Associated angina: without angina Qualified Code(s): I25.10 - Atherosclerotic heart disease of [place] coronary artery without angina pectoris Is this a current diagnosis for this admission?: Yes (7) Chronic atrial fibrillation with rapid ventricular response Is this a current diagnosis for this admission?: Yes Plan: Patient is currently on Tikosyn, Metoprolol and Pradaxa therapy. Obtain electrolyte including Mag level. IV Metoprolol 5 mg x 1 dose administered. I will request cardiology consult with occupational therapy program director office 365 consultant for further intravenous therapy. Transfer to [facility]. - Time Time Spent with patient: 35 or more minutes Medications reviewed and adjusted accordingly: Yes Anticipated discharge: Home with Homehealth Within: Other - Inpatient Certification Based on my medical assessment, after consideration of the patient's comorbidities, presenting symptoms, or acuity I expect that the services needed warrant INPATIENT care.: Yes I certify that my determination is in accordance with my understanding of Medicare's requirements for reasonable and necessary INPATIENT services [42 CFR 412.3e].: Yes Medical Necessity: Need Close Monitoring Due to Risk of Patient Decompensation, Need For Continuous Telemetry Monitoring, Risk of Complication if Not Cared For in Hospital Post Hospital Care: D/C Board Worker Documentation - Plan Summary Plan Summary: See covering attending physician order.
[2017-05-12] MEDS ORDERED: DILTIAZEM HCL/D5W 125 MG/125 ML RTUINJ IV ONE (12:48)
--- NOTE | 2017-05-12 22:37 | EKG REPORT ---
SEVERITY:- ABNORMAL ECG - ATRIAL FIBRILLATION, V-RATE 100-169 PAIRED VENTRICULAR PREMATURE COMPLEXES PROBABLE LEFT VENTRICULAR HYPERTROPHY PROLONGED QT INTERVAL : Confirmed by: Juan Swan 12-May-2017 22:36:43
[2017-05-13] MEDS: IPRATROPIUM/ALBUTEROL 0.5-2.5 MG/3 ML AMPUL NEB SCH ×3 (01:50→14:09)
[2017-05-13] MEDS: LANSOPRAZOLE 30 MG TAB.RAP.DR PO SCH (05:09)
--- NOTE | 2017-05-13 07:33 | CONSULTATION REPORT E ---
Consultation Report NAME: KRISH RAMOS : 1955 AGE: 61Y DATE: 05/12/2017 327 A TO: MARYLOU CRAWFORD M.D. FROM: CARMEN GANT M.D. Requesting Physician REASON FOR CONSULTATION: Evidence of atrial fibrillation, which is paroxysmal with a rapid ventricular response. HISTORY: The patient is a 61-year-old -[place] male with a history of hypertension, hyperlipidemia, peripheral vascular disease, paroxysmal atrial fibrillation, and nonischemic dilated cardiomyopathy with a history of AICD, was admitted on 05/06/[address] Gant's office for complaints of a few days of shortness of breath, wheezing, and cough productive of whitish sputum. The patient had no chest pain or discomfort. The patient, at that time, was in sinus rhythm. The patient is on Tikosyn and Pradaxa. Today, all of a sudden, Dr. Norris, covering Dr. Gant called me and stated that the patient had sudden onset of rapid atrial fibrillation with a ventricular response of 145 beats per minute with a blood pressure of 117/71 with a respiration of 24 per minute, O2 saturations were 95% on 2 L. He had given the patient 5 mg of Lopressor intravenously and the patient's Tikosyn was continued. Due to the need to start the patient on intravenous Cardizem, I had asked the patient to be transferred to a telemetry unit that is [facility]. By the time the patient reached the unit, he converted back to sinus rhythm, and at present is comfortable. He denies any chest pain or discomfort. There is no PND, orthopnea, or leg edema. He states that his cough is much improved and he does not have any PND, orthopnea, or wheezing at present, although he does have some rhonchi. He does have some cough productive of scanty, white sputum. There is no bleeding on Pradaxa. There are no TIA or CVA symptoms recently as a recurrence. He has had a past history of TIA versus CVA where he had a problem with speech, but the patient still has some mild dysarthria, so hence, it may be a CVA. PAST MEDICAL HISTORY: 1. The patient has a history of paroxysmal atrial fibrillation, as mentioned earlier. The patient does feel palpitations off and on, but the patient is on Tikosyn 500 mcg p.o. q. 12 hours and also Pradaxa. 2. He has a history of hypertension in which the patient states is well controlled. 3. He has a history of dilated cardiomyopathy, and due to the weak heart, he states that he had an AICD placed in [facility] since the patient lives in [place]. He states that he had a cardiac catheterization, which showed no blockages. He probably had a type 2 supply demand mismatch, elevation of troponin I, and not a true non-ST elevation CT or a true ST elevation CT. 4. He has a history of asthma. 5. Bronchitis. 6. COPD. 7. History of pneumonia x2. 8. Obstructive sleep apnea, uses CPAP at night. 9. He has a history of GERD and hiatal hernia. 10. He also has a history of arthritis. 11. He has a history of depression. 12. He has PTSD/affective disorder. 13. He also has a history of anemia on iron pills. There is no history of seizures. No history of diabetes mellitus or thyroid disease. PAST SURGICAL HISTORY: Positive for: 1. Cardiac catheterization. 2. Defibrillator placement. 3. Herniorrhaphy. SOCIAL HISTORY: The patient smoked many years ago. There is no *------*. FAMILY HISTORY: He states his mother had congestive heart failure and there is also CAD, CVA, diabetes mellitus, hyperlipidemia, hypertension, and malignancy in his family. Although his mother had congestive heart failure, she of cancer. The patient does not know which organ was involved. ALLERGIES: He is allergic to LASIX. MEDICATIONS: Include: 1. Cogentin 2 mg p.o. q. 12 hours. 2. Symbicort 2 puffs inhalation q. 12 hours. 3. Clonazepam 1 mg p.o. q. 12 hours p.r.n. 4. Cyanocobalamin 1000 mg p.o. daily. 5. Pradaxa 150 mg p.o. q. 12 hours. 6. Tikosyn 500 mg p.o. q. 12 hours. 7. Doxepin 6 mg p.o. daily at bedtime. 8. Finasteride (Proscar) 5 mg p.o. daily for his enlarged prostate. 9. He will get flu vac 0.5 mL IM on the day of discharge. 10. Fluticasone (Flonase) 1 spray nasally daily. 11. Lasix 20 mg p.o. daily. 12. Ipratropium/albuterol sulfate 3 mL nebulizer treatment q. 6 hours. 13. Lansoprazole 30 mg p.o. q. 6 a.m. 14. Lisinopril 10 mg p.o. daily. 15. Metoprolol tartrate (Lopressor) 50 mg p.o. q. 12 hours. 16. Nitroglycerin 1 tablet sublingual q. 5 minutes p.r.n. 17. Zofran 4 mg IV q. 4 hours p.r.n. 18. He did get potassium chloride 10 mg p.o. daily. RESUSCITATION STATUS: The patient is a FULL CODE. He states that his is the surrogate healthcare decision maker. REVIEW OF SYSTEMS: CONSTITUTIONAL: Denies any fever, chills, or rigors. Complains of generalized fatigue and weakness. HEAD: No history of headaches or head injury. No history of seizures. EARS: No history of hearing loss. No history of tinnitus. No history of recurrent ear infections. EYES: No history of amblyopia or diplopia. No history of glaucoma. NOSE: History of nasal allergies present, but no hay fever. No nasal polyps. No nosebleeds. MOUTH: No history of altered taste sensation. No ulcers in the mouth. No bleeding from the gums. THROAT: No history of odynophagia or dysphagia. No recurrent sore throat. SKIN: No pruritus. No yellowish discoloration of the skin. No skin cancer. No psoriasis. NECK: No swelling in the neck. No lymphadenopathy. No goiter. LUNGS: History of asthma and COPD. History of sleep apnea. No history of pulmonary embolism. No history of hemoptysis. Recent symptoms of acute exacerbation of COPD. When the patient came in, his PCO2 was high and the patient's pH was low. Hence, the patient was in respiratory acidosis. He has cough at present, scanty white sputum. No history of hemoptysis. No history of pleuritic chest pain. CARDIAC: History of hypertension. History of cardiomyopathy. History of AICD. No firing of the AICD recently. History of paroxysmal atrial fibrillation. At present, the patient did go transiently into atrial fibrillation and converted spontaneously. He is on Tikosyn and dabigatran. No history of PND, orthopnea, or leg edema. No history of coronary artery disease. History of congestive heart failure in the past, none recently. No syncope. ENDOCRINE: No history of diabetes mellitus. No history of thyroid disease. No history of polydipsia or polyuria. No history of heat or cold intolerance. METABOLIC: History of morbid obesity present. History of hyperlipidemia present. RENAL: History of enlarged prostate. Symptoms controlled with current medications, which is Flomax. No symptoms of UTI. No history of hematuria, polyuria, or dysuria. No history of chronic kidney disease. CENTRAL NERVOUS SYSTEM: Past history of TIA versus CVA. Patient had speech disturbance. At present, the patient is mildly dysarthric. There are no focal deficits. No recurrence of TIA or CVA symptoms. No history of headaches, migraines, or seizures. PSYCHIATRIC: History of depression present. History of posttraumatic stress disorder. History of schizoaffective disorder in remission, controlled with medication. HEMATOLOGIC: History of anemia on iron pills. No history of bleeding diathesis. No history of clotting disorders. GASTROINTESTINAL: History of GERD present. History of hiatal hernia present. No history of GI bleed. No history of fatty food intolerance. No history of abdominal pain. No history of cirrhosis or hepatitis. PHYSICAL EXAMINATION: VITAL SIGNS: Earlier, the patient's heart rate up on the fourth floor on telemetry was 145 beats per minute, blood pressure 117/71, respirations are 24 per minute, O2 saturations are 95% on 2 L. Subsequent to his transfer to the [address] [place] [address] telemetry unit, which is intermediate care unit, the patient converted to sinus rhythm and is afebrile with a temperature of 98.6 degrees Fahrenheit, blood pressure is 117/71, respirations are 20 per minute, O2 saturations are 100% on 2 L nasal cannula. HEAD: Atraumatic, normocephalic. EYES: Pupils are equal, round, regular, reactive to light and accommodation. Extraocular movements are normal. There is no conjunctival pallor. There is no scleral icterus. GENERAL: The patient is morbidly obese, but well groomed, in no acute distress. EARS: Tympanic membranes are intact. External auditory canals are clear. NOSE: There is no deviated nasal septum. There is no inflammation of the nasal mucous membrane. MOUTH: Mucous membranes of the mouth are moist. Tongue is moist. There are no ulcers. There is no bleeding from the gums. THROAT: There is no redness of the oropharynx. There are no exudates. SKIN: There is no petechiae or ecchymosis. There are no skin rashes or skin lesions. NECK: Supple. There is no JVD. Carotids are equal. There is no bruit. There is no lymphadenopathy. There is no goiter. Trachea is central. LUNGS: Diminished air entry. Prolonged expiration and scattered rhonchi on auscultation, but there are no rales or CHF. On percussion, there is hyperresonance. There is no chest wall tenderness. CARDIOVASCULAR: S1 and S2 are heard. At present, S1 *------*. There is no S3 gallop. There is no S4 gallop. There is systolic murmur in the left sternal border in the apex. There is no rub. ABDOMEN: Soft, obese, nontender. There is no hepatosplenomegaly. Bowel sounds are well heard. There are no tender areas or masses. There is no rebound, guarding, or rigidity. EXTREMITIES: Femorals are deep. There are no femoral bruits. Leg pulses are diminished. There is no pedal edema. There is no cyanosis or clubbing. There is no DVT or cellulitis. CENTRAL NERVOUS SYSTEM: The patient is conscious, awake, alert, oriented x3 with no focal deficit. The patient has mild dysarthria. PSYCHIATRIC: The patient's judgment and insight are intact. His affect is normal. IMAGING: The patient's abdominal/pelvis CT shows nothing acute. The patient's chest x-ray done on 05/06/2017 shows no acute changes. The patient's EKG done this morning shows atrial fibrillation with rapid ventricular response, probable left ventricular hypertrophy. LABORATORY: The patient's ABG on admission on 05/06/2017 show a pH of 7.35, PCO2 is 54.6, which is high, PO2 is 83.3, O2 saturations are 95.6% on 2 L nasal cannula. The patient's sodium is 143.8, potassium 4.1, chloride 104, CO2 is 25. The patient's BUN is 25, creatinine is 1.21. GFR is greater than 60. Glucose is 179 and his calcium is 8.6. His liver function tests are normal with a low AST of 13. The patient's albumin is 3.4, total protein is 5.9. The patient's magnesium is 2.7. The patient's intake and output is not accurate. IMPRESSION: 1. Paroxysmal atrial fibrillation with rapid ventricular response, converted to sinus rhythm. Patient has a history of paroxysmal atrial fibrillation. Continue Tikosyn. Continue Pradaxa. Will start the patient on a small dose of Cardizem intravenously at 2.5 mg per hour. Will later see what his heart rate is and increase the patient's metoprolol to 75 mg p.o. q. 12 hours. 2. Acute exacerbation of COPD. The patient is on treatment for this. Would recommend adding antibiotics. 3. Respiratory acidosis on admission. The patient is much improved. 4. Hypertension. Blood pressure is well controlled. 5. Cardiomyopathy, dilated, nonischemic. The ejection fraction is exactly not drawn. Will get records from [facility]. 6. AICD placement. No firing of AICD. 7. Obstructive sleep apnea on CPAP at night. 8. History of asthma. 9. COPD. 10. History of TIA versus CVA with no recurrence with mild dysarthria. 11. Depression. 12. Posttraumatic stress disorder. 13. Hyperlipidemia. 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 At present, the patient is stable and with normal judgment and insight and is not agitated or depressed or anxious. Note that the patient was seen at 12 noon. Forty five minutes spent on the patient with more than 50% of the time spent on direct patient care. The patient's medications have been reviewed and adjusted. Will see what the patient's blood pressure and heart rate is tomorrow, and as mentioned earlier, we can increase the patient's metoprolol to 75 mg p.o. q. 12 hours. NOTE: More than 50% of the time spent in direct patient care. Discussed with Dr. Norris, the attending physician during the weekend. Medical decision making is of highly complex nature. Will follow with you. DICTATING PHYSICIAN: MARYLOU CRAWFORD M.D. [id number] PHY#: [id number] ID: [id number] JOB#: [id number] ACCT: [id number] cc:MARYLOU CRAWFORD M.D. >
[2017-05-13] MEDS: POTASSIUM CHLORIDE 10 MEQ TABLET.SA PO SCH (09:44)
[2017-05-13] MEDS: BENZTROPINE MESYLATE 1 MG TABLET PO SCH (09:45)
[2017-05-13] MEDS: FUROSEMIDE 20 MG TABLET PO SCH (09:45)
[2017-05-13] MEDS: CYANOCOBALAMIN (VITAMIN B-12) 1,000 MCG TABLET PO SCH (09:46)
[2017-05-13] MEDS: FINASTERIDE 5 MG TABLET PO SCH (09:46)
[2017-05-13] MEDS: LISINOPRIL 10 MG TABLET PO SCH (09:46)
[2017-05-13] MEDS: METOPROLOL TARTRATE 50 MG TABLET PO SCH (09:46)
[2017-05-13] MEDS: FLUTICASONE NASAL SPRAY 50 MCG/SPRY 120 SPRAY/16 GM NAREB SCH (09:47)
[2017-05-13] MEDS: BUDESONIDE/FORMOTEROL 160-4.5 MCG 60 PUFF/6 GM MDI IH SCH (09:47)
[2017-05-13] MEDS: DABIGATRAN ETEXILATE 150 MG CAPSULE PO SCH (09:48)
[2017-05-13] MEDS: CLONAZEPAM 1 MG TABLET PO PRN (09:52)
[2017-05-13] MEDS: DOFETILIDE 500 MCG CAPSULE PO SCH (09:53)
--- NOTE | 2017-05-13 13:08 | PDOC PROGRESS REPORT ---
Subjective Progress Note for:: 05/13/17 Subjective:: Patient without complaints Reason For Visit: ACUTE COPD,RESPIRATORY ACIDOSIS Physical Exam Vital Signs: Temp Pulse Resp BP Pulse Ox 97.5 F 75 16 143/83 H 97 05/13/17 07:57 05/13/17 08:46 05/13/17 08:46 05/13/17 08:00 05/13/17 08:46 Pulse Oximeter Nocturnal Start: 05/10/17 12: 47 Freq: RTQ4 Status: Complete Document 05/11/17 04:03 CMI (Rec: 05/11/17 04:06 CMI [email or web address]) Nocturnal Pulse Oximetry Equipment Usage Equipment in Use Oxygen Delivery Method (includes room Bi-pap air) O2 Sat by Pulse Oximetry (92-100) 98 Continuous Pulse Oximeter Set Up Yes Continuous SpO2 Machine # N-1 Intake & Output 05/12/17 05/13/17 05/14/17 06:59 06:59 06:59 Intake Total 1690 1339 Output Total 1999 Balance 1690 -661 Weight 128.4 kg General appearance: PRESENT: cooperative, disheveled, obese, well-developed. ABSENT: no acute distress, hard of hearing, mild distress, morbidly obese, severe distress, thin Head exam: PRESENT: atraumatic, normocephalic Eye exam: PRESENT: conjunctiva pale, EOMI. ABSENT: conjunctival injection, conjunctiva pink, nystagmus, periorbital swelling, scleral icterus Mouth exam: PRESENT: dry mucosa, neck supple, tongue midline. ABSENT: laceration, moist Neck exam: ABSENT: carotid bruit, JVD, lymphadenopathy, thyromegaly, tracheal deviation, tracheostomy Respiratory exam: PRESENT: decreased breath sounds, prolonged expiratory phas, rales, rhonchi, symmetrical, unlabored. ABSENT: accessory muscle use, chest wall tenderness, clear to auscultation martita, crackles, retraction, stridor, tachypnea Cardiovascular exam: PRESENT: RRR, +S1, +S2. ABSENT: irregular rhythm, rubs Pulses: PRESENT: normal radial pulses GI/Abdominal exam: PRESENT: normal bowel sounds, soft. ABSENT: distended, guarding, mass, organolmegaly, rebound, tenderness Extremities exam: ABSENT: calf tenderness, clubbing, joint swelling Musculoskeletal exam: ABSENT: deformity, dislocation Neurological exam: PRESENT: alert, awake Psychiatric exam: PRESENT: normal mood Skin exam: PRESENT: dry, warm Results Laboratory Results: 05/12/17 03:52 05/12/17 03:52 05/12/17 03:52 Magnesium 2.7 H Impressions: Abdomen/Pelvis CT 05/06/17 00:00 IMPRESSION: No acute findings. Chest X-Ray 05/06/17 00:00 IMPRESSION: NO ACUTE RADIOGRAPHIC FINDING IN THE CHEST. Knee X-Ray 05/06/17 00:00 IMPRESSION: No significant findings. Assessment & Plan - Diagnosis (1) Acute exacerbation of chronic obstructive pulmonary disease (COPD) Is this a current diagnosis for this admission?: Yes Plan: Greatly improved (2) Body mass index (BMI) 40.0-44.9, adult Is this a current diagnosis for this admission?: Yes (3) Chronic atrial fibrillation Is this a current diagnosis for this admission?: Yes Plan: Ventricular response well-controlled (4) Sleep apnea syndrome Qualifiers: Sleep apnea type: unspecified type Qualified Code(s): G47.30 - Sleep apnea , unspecified Is this a current diagnosis for this admission?: Yes Plan: Nocturnal trend oximetry displays significant. Hypoxemia
--- NOTE | 2017-05-13 18:08 | PDOC DISCHARGE SUMMARY ---
General - Admit/Disc Date/PCP Admission Date/Primary Care Provider: 05/10/17 15:20 CARMEN GANT MD Discharge Date: 05/13/17 - Discharge Diagnosis (1) Acute exacerbation of chronic obstructive pulmonary disease (COPD) Is this a current diagnosis for this admission?: Yes (2) Respiratory acidosis Is this a current diagnosis for this admission?: Yes (3) Abdominal distension Is this a current diagnosis for this admission?: Yes (4) Obstructive sleep apnea Is this a current diagnosis for this admission?: Yes (5) Chronic atrial fibrillation with rapid ventricular response Is this a current diagnosis for this admission?: Yes (6) Acute respiratory acidosis Is this a current diagnosis for this admission?: Yes - Additional Information Resuscitation Status: Full Code Discharge Diet: Regular Discharge Activity: Activity As Tolerated Home Medications: Budesonide/Formoterol Fumarate [Symbicort HFA 160-4.5 mcg Inhaler 6 gm] 2 puff IH Q12 05/06/17 Cyanocobalamin (Vitamin B-12) [Vitamin B-12] 1,000 mcg PO DAILY 05/06/17 Dabigatran Etexilate Mesylate [Pradaxa 150 mg Capsule] 150 mg PO Q12 05/06/17 Dofetilide [Tikosyn 500 Mcg Capsule] 500 mcg PO Q12 05/06/17 Doxepin HCl [Silenor] 6 mg PO QHS 05/06/17 Finasteride [Proscar 5 mg Tablet] 5 mg PO DAILY 05/06/17 Fluticasone Propionate [Flonase Nasal [place] 50 Mcg/[place] 16 gm] 1 spray NAREB DAILY 05/06/17 Furosemide [Lasix 20 mg Tablet] 20 mg PO DAILY 05/06/17 Lisinopril [Prinivil 10 mg Tablet] 10 mg PO DAILY 05/06/17 Metoprolol Tartrate [Lopressor 50 mg Tablet] 50 mg PO Q12 05/06/17 Nitroglycerin [Nitrostat 0.4 mg (1/150 Gr) Tabs 25/Bottle] 1 tab SL Q5MP PRN 09/17 Potassium Chloride [Klor-Con 10 Meq Tablet.sa] 10 meq PO DAILY 05/06/17 Albuterol Sulfate [Proair HFA] 1 - 2 puff IH Q4 PRN #1 inhaler 05/13/17 History of Present Illness History of Present Illness: KRISH RAMOS JR is a 61 year old male, He came to the office today for evaluation of respiratory symptoms, shortness of breath, wheezing, he has a history of COPD. In the office he was audibly wheezing. He was admitted to the hospital for management, ABG suggests respiratory acidosis. He also have a history of chronic atrial fibrillation, nonischemic cardiomyopathy, morbid obesity with distended abdomen. A CAT scan of the abdomen was done, there is no acute intra-abdominal pathology Hospital Course Hospital Course: Patient was admitted for the management of COPD exacerbation, he was treated with IV Solu-Medrol, bronchodilators and antibiotic. Hospital course was complicated with atrial fibrillation with rapid irregular response. He was treated with IV Cardizem infusion, transferred from telemetry bed to IMCU bed. He has a history of atrial fibrillation, on antiarrhythmic drug, dofetilide and also chronic anticoagulation with Pradaxa. He was seen by cardiology and pulmonary. He was initially admitted for observation but despite treatment with intravenous Solu-Medrol patient remains short of breath, partly due to distended abdomen. CT scan of the abdomen and pelvis was done without contrast , it did not show any intra-abdominal pathology. Patient was seen today by the bedside, he is stable, there is no more shortness of breath there is no wheezing , he be discharged home today Physical Exam Vital Signs: Temp Pulse Resp BP Pulse Ox 97.4 F 73 22 H 131/80 H 98 05/13/17 16:00 05/13/17 16:00 05/13/17 16:00 05/13/17 16:00 05/13/17 17:06 Pulse Oximeter Nocturnal Start: 05/10/17 12: 47 Freq: RTQ4 Status: Complete Document 05/11/17 04:03 CMI (Rec: 05/11/17 04:06 CMI [email or web address]) Nocturnal Pulse Oximetry Equipment Usage Equipment in Use Oxygen Delivery Method (includes room Bi-pap air) O2 Sat by Pulse Oximetry (92-100) 98 Continuous Pulse Oximeter Set Up Yes Continuous SpO2 Machine # N-1 Intake & Output 05/12/17 05/13/17 05/14/17 06:59 06:59 06:59 Intake Total 1690 1339 458 Output Total 1999 Balance 1690 -661 458 Weight 128.4 kg General appearance: PRESENT: no acute distress, well-developed, well-nourished Head exam: PRESENT: atraumatic, normocephalic Eye exam: PRESENT: conjunctiva pink, EOMI, PERRLA Ear exam: PRESENT: normal external ear exam Mouth exam: PRESENT: moist, tongue midline Neck exam: PRESENT: full ROM Respiratory exam: PRESENT: clear to auscultation martita Cardiovascular exam: PRESENT: RRR, +S1, +S2 Pulses: PRESENT: normal dorsalis pedis pul, +2 pedal pulses bilateral Vascular exam: PRESENT: normal capillary refill GI/Abdominal exam: PRESENT: normal bowel sounds, soft Rectal exam: PRESENT: deferred Neurological exam: PRESENT: alert, awake, oriented to person, oriented to place , oriented to time, oriented to situation, CN II-XII grossly intact Psychiatric exam: PRESENT: appropriate affect, normal mood Skin exam: PRESENT: dry, intact, warm Results Laboratory Results: 05/12/17 03:52 05/12/17 03:52 Impressions: Abdomen/Pelvis CT 05/06/17 00:00 IMPRESSION: No acute findings. Chest X-Ray 05/06/17 00:00 IMPRESSION: NO ACUTE RADIOGRAPHIC FINDING IN THE CHEST. Knee X-Ray 05/06/17 00:00 IMPRESSION: No significant findings.
[2017-05-13 18:45] VITALS: BP 147/86
[2017-05-13] MEDS ORDERED: METOPROLOL TARTRATE 50 MG TABLET PO SCH (22:00)
--- NOTE | 2017-05-13 22:38 | PROGRESS NOTE E ---
Progress Note NAME: KRISH RAMOS : 1955 AGE: 61Y DATE: 05/13/2017 ROOM: 327 SUBJECTIVE: Note that the patient states he feels better. He has no PND, orthopnea. There is no cough or shortness of breath. There is no wheezing. The patient has no recurrence of atrial fibrillation. There is no firing of his AICD. There are no syncopal episodes. There is no leg edema. The patient is desirous of going home. OBJECTIVE: GENERAL: On examination the patient is morbidly obese, in no acute distress. He is well-groomed. VITAL SIGNS: He is afebrile with a temperature of 98 degrees Fahrenheit, his pulse is 78 beats per minute, blood pressure 147/83, respirations are 20 per minute, O2 saturations are 98% on 2L cannula. HEENT: Head is atraumatic, normocephalic. Eyes: Pupils are equal, round and regular, reactive to light and accommodation. Extraocular movements are normal. There is no conjunctival pallor. There is no scleral icterus. ENT is negative. NECK: Supple. There is no JVD. There is no lymphadenopathy. There is no goiter. Carotids are equal. There is no bruit. Trachea is central. LUNGS: Show diminished air entry, prolonged expiration on auscultation. On percussion there is hyperresonance, otherwise lungs are clear without any rhonchi, rales, or wheezing. HEART: S1 and S2 is heard. There is no S3 gallop. There is no S4 gallop. There is a systolic murmur in the left sternal border and the apex. There is no rub. ABDOMEN: Soft, obese, nontender. There is no hepatosplenomegaly. Bowel sounds are well heard. There are no tender areas or masses. EXTREMITIES: Femorals are deep. There are no femoral bruits. Leg pulses are diminished. There is no pedal edema. There is no DVT or cellulitis. There is no calf tenderness. CENTRAL NERVOUS SYSTEM: The patient has a slightly slurred speech which is very minimal but there are no focal deficits. PSYCHIATRIC: The patient's judgment and insight are intact. His affect is normal. DIAGNOSTIC STUDIES: The patient did not have any labs or imaging done. IMPRESSION: 1. PAROXYSMAL ATRIAL FIBRILLATION, AT PRESENT IN SINUS RHYTHM. 2. COPD, ACUTE EXACERBATION RESOLVED, AT PRESENT BACK TO BASELINE. 3. HYPERTENSION, BLOOD PRESSURE WELL CONTROLLED. 4. DILATED CARDIOMYOPATHY. NO EVIDENCE OF LEFT VENTRICULAR HEART FAILURE AT PRESENT. IT SEEMS TO BE COMPENSATED. 5. AICD, NO FIRING OF HIS AICD. 6. OBSTRUCTIVE SLEEP APNEA ON CPAP AT NIGHT. 7. TIA VERSUS CVA IN THE PAST CAUSING SLIGHTLY SLURRED SPEECH REMAINS A MINIMAL RESIDUAL. 8. POST-TRAUMATIC STRESS DISORDER. 9. DEPRESSION. 10. SCHIZOAFFECTIVE DISORDER, STABLE. 11. HYPERLIPIDEMIA. 12. ASTHMA. RECOMMENDATION: Continue the patient on current medication including Pradaxa and we will increase the patient's Toprol to 75 mg p.o. b.i.d., continue Tikosyn. The patient knows to get periodic AICD checks. The patient will continue to wear CPAP at night for his obstructive sleep apnea. Continue respiratory treatments. The patient's weather observer is in agreeing with is *------*. We will sign off the case. Discussed with the attending physician on the case. TIME SPENT: Note 30 minutes spent on this patient with more than 50% of the time spent on direct patient care. His medications have been reviewed and his metoprolol has been increased to prevent any recurrence of atrial fibrillation. Note medical decision making at present is of moderate complexity. Thanking you for allowing me to participate in the care of this patient. DICTATING PHYSICIAN: MARYLOU CRAWFORD M.D. [id number] AUN#: [id number] ID: [id number] JOB#: [id number] ACCT: [id number] cc: >
== END 2017-05-13 19:00 | disposition home or self-care (01) | DRG 191 ==
LOC: 5 18:00 → INTOOBSV 18:00 → OBSVTOIN 05-10 15:20 → 3S 05-12 12:41
PROVIDERS: ADMIT Internal Medicine; ATTEND Internal Medicine
PROC: 3E0F73Z Introduction of Anti-inflammatory into Respiratory Tract, Via Natural or Artificial Opening (ICD-10-PCS; principal; 2017-05-10)
DX: J44.1 Chronic obstructive pulmonary disease with (acute) exacerbation (principal); E87.2 Acidosis; I42.9 Cardiomyopathy, unspecified; Z68.41 Body mass index [BMI] 40.0-44.9, adult; G47.33 Obstructive sleep apnea (adult) (pediatric); I48.0 Paroxysmal atrial fibrillation; I48.2 Chronic atrial fibrillation; E66.01 Morbid (severe) obesity due to excess calories; I73.9 Peripheral vascular disease, unspecified; I50.9 Heart failure, unspecified; I25.10 Atherosclerotic heart disease of native coronary artery without angina pectoris; I25.2 Old myocardial infarction; E78.5 Hyperlipidemia, unspecified; D64.9 Anemia, unspecified; K21.9 Gastro-esophageal reflux disease without esophagitis; K44.9 Diaphragmatic hernia without obstruction or gangrene; F32.9 Major depressive disorder, single episode, unspecified; I10 Essential (primary) hypertension; F25.9 Schizoaffective disorder, unspecified; F43.10 Post-traumatic stress disorder, unspecified; Z82.61 Family history of arthritis; Z82.49 Family history of ischemic heart disease and other diseases of the circulatory system; Z83.3 Family history of diabetes mellitus; Z79.01 Long term (current) use of anticoagulants; Z95.810 Presence of automatic (implantable) cardiac defibrillator; Z87.891 Personal history of nicotine dependence; Z80.9 Family history of malignant neoplasm, unspecified; Z79.899 Other long term (current) drug therapy
CPT/HCPCS: 36415; 71010; 74176; 80048; 80053; 80076; 81001; 82803; 83735; 85025; 90686; 93005; 93010; 94640; 94660; 94762; G0378; G0379; J2405; J2920; J2930; J3490; J7620

== ENCOUNTER → 2017-09-02 | Outpatient (CLI) | payer OTHER, MEDICARE ==
--- NOTE | 2017-09-02 13:50 | RADIOLOGY REPORT (SQ) ---
EXAM DESCRIPTION: FINGERS RIGHT COMPLETED DATE/TIME: 09/02/2017 1:40 pm REASON FOR STUDY: PAIN IN RIGHT FINGER(S) M79.644 PAIN IN RIGHT FINGER(S) COMPARISON: None. NUMBER OF VIEWS: Three views. TECHNIQUE: AP, lateral, and oblique images acquired of the right thumb LIMITATIONS: None. FINDINGS: MINERALIZATION: Normal. BONES: No acute fracture or dislocation. No worrisome bone lesions. SOFT TISSUES: No soft tissue swelling. No foreign body. OTHER: There is mild joint space narrowing and subcortical cyst formation at the 1st carpometacarpal joint. Subcortical cyst formation in the lunate bone due to radiocarpal impingement, ulnar negative variance IMPRESSION: No acute fracture or malalignment. Osteoarthritis at the 1st carpometacarpal joint COMMENT: SITE OF TRAUMA/COMPLAINT MARKED/STAMP COMPLETED: Yes TECHNICAL DOCUMENTATION: JOB ID: [id number] [employer]- All Rights Reserved Reading location - IP/workstation name: [email or web address]
== END ==
LOC: OD 13:26
PROVIDERS: ATTEND Internal Medicine
DX: M79.644 Pain in right finger(s) (principal); M18.11 Unilateral primary osteoarthritis of first carpometacarpal joint, right hand

== ENCOUNTER → 2017-09-30 | Outpatient (CLI) | payer OTHER, MEDICARE ==
--- NOTE | 2017-09-30 11:17 | RADIOLOGY REPORT (SQ) ---
EXAM DESCRIPTION: ANKLE LEFT AP/LATERAL COMPLETED DATE/TIME: 09/30/2017 11:07 am REASON FOR STUDY: LEFT ANKLE PAIN M25.572 PAIN IN LEFT ANKLE AND JOINTS OF LEFT FOOT COMPARISON: None. NUMBER OF VIEWS: Three views. TECHNIQUE: AP, lateral, and oblique radiographic images acquired of the left ankle. LIMITATIONS: None. FINDINGS: MINERALIZATION: Normal. BONES: No acute fracture or dislocation. No worrisome bone lesions. JOINTS: No effusions. SOFT TISSUES: Mild soft tissue swelling, medial more than lateral. OTHER: No other significant finding. IMPRESSION: NEGATIVE STUDY OF THE LEFT ANKLE. NO RADIOGRAPHIC EVIDENCE OF ACUTE INJURY. TECHNICAL DOCUMENTATION: JOB ID: [id number] [employer]- All Rights Reserved Reading location - IP/workstation name: [email or web address]
== END ==
LOC: OD 10:49
PROVIDERS: ATTEND Internal Medicine
DX: M25.572 Pain in left ankle and joints of left foot (principal)

== ENCOUNTER 2017-10-02 09:07 | Observation (INO) | payer OTHER, MEDICARE ==
--- NOTE | 2017-10-02 09:24 | ER Document Report ---
ED Medical Screen (RME) - General Chief Complaint: Dizziness Stated Complaint: BREATHING DIFFICULTY Time Seen by Provider: 10/02/17 09:19 Mode of Arrival: Ambulatory Information source: Patient TRAVEL OUTSIDE OF THE [place] 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[employer] Severity: Moderate Associated Symptoms: Dizzy/lightheaded, Shortness of breath Exacerbated by: Denies Relieved by: Denies Similar symptoms previously: Yes Recently seen / treated by doctor: No - Related Data Allergies/Adverse Reactions: latex [Latex] Allergy (Severe, Verified 10/02/17 09:13) WHITTAKER SKIN Past Medical History - General Information source: Patient - Past Medical History Cardiac Medical History: Reports: Hx Atrial Fibrillation, Hx Congestive Heart Failure, Hx Coronary Artery Disease, Hx Heart Attack, Hx Hypercholesterolemia, Hx Hypertension, Hx Peripheral Vascular Disease Pulmonary Medical History: Reports: Hx Asthma, Hx Bronchitis, Hx COPD, Hx Pneumonia - X2, Hx Sleep Apnea Neurological Medical History: Reports: Hx Cerebrovascular Accident Renal/ Medical History: Reports: Hx Benign Prostatic Hyperplasia, Hx Kidney Stones. Denies: Hx Peritoneal Dialysis GI Medical History: Reports: Hx Gastroesophageal Reflux Disease, Hx Hiatal Hernia. Denies: Hx Pancreatitis Musculoskeltal Medical History: Reports Hx Arthritis, Reports Hx Musculoskeletal Trauma Psychiatric Medical History: Reports: Hx Depression, Hx Post Traumatic Stress Disorder, Hx Schizoaffective Disorder, Hx Schizophrenia Traumatic Medical History: Reports: Hx Fractures - Left foot Past Surgical History: Reports: Hx Cardiac Surgery - defib, Hx Herniorrhaphy, Hx Pacemaker - Pacemaker defibrillator, Hx Urinary Tract Surgery - prostate. testicle 6-3-14 - Immunizations Immunizations up to date: Yes Hx Diphtheria, Pertussis, Tetanus Vaccination: No History of Influenza Vaccine for 03/2017 - 08/2017 Season: No Influenza Administration Date for 03/2017 Season: 03/03/16 Review of Systems - Review of Systems Constitutional: No symptoms reported. denies: Chills, Fever EENT: No symptoms reported Cardiovascular: See HPI Respiratory: See HPI Gastrointestinal: No symptoms reported Musculoskeletal: No symptoms reported Skin: No symptoms reported Neurological/Psychological: See HPI Physical Exam - Vital signs Vitals: Temp Pulse Resp BP Pulse Ox 98.4 F 75 20 126/91 H 97 10/02/17 09:17 10/02/17 09:17 10/02/17 09:17 10/02/17 09:17 10/02/17 09:17 Interpretation: Hypertensive. No: Tachycardic, Hypoxic, Tachypneic - General General appearance: Appears well, Alert In distress: None - HEENT Head: Normocephalic Eyes: Normal Conjunctiva: Normal - Respiratory Respiratory status: No respiratory distress Breath sounds: Normal - Cardiovascular Rhythm: Regular Heart sounds: Normal auscultation Murmur: No - Psychological Associated symptoms: Normal affect, Normal mood Course - Vital Signs Vital signs: Temp Pulse Resp BP Pulse Ox 98.4 F 75 20 126/91 H 97 10/02/17 09:17 10/02/17 09:17 10/02/17 09:17 10/02/17 09:17 10/02/17 09:17
--- NOTE | 2017-10-02 09:56 | RADIOLOGY REPORT (SQ) ---
EXAM DESCRIPTION: CT HEAD WITHOUT COMPLETED DATE/TIME: 10/02/2017 9:45 am REASON FOR STUDY: DIZZINESS COMPARISON: CT brain 01/22/2012, 09/12/2014, 08/22/2015, 07/29/2016 TECHNIQUE: Axial images acquired through the brain without intravenous contrast. Images reviewed wi th bone, brain and subdural windows. Additional sagittal and coronal reconstructions were generated. Images stored on PACS. All CT scanners at this facility use dose modulation, iterative reconstruction, and/or weight based d osing when appropriate to reduce radiation dose to as low as reasonably achievable (ALARA). [facility]: Dose Right [facility]: CareDose [facility]: Dose Right [facility]: Teradose 4D [facility]: [email or web address] RADIATION DOSE: CT Rad equipment meets quality standard of care and radiation dose reduction techniq ues were employed. CTDIvol: 53.2 mGy. DLP: 991 mGy-cm. mGy. LIMITATIONS: None. FINDINGS: VENTRICLES: Normal size and contour. CEREBRUM: No masses. No hemorrhage. No midline shift. No evidence for acute infarction. Normal gra y/white matter differentiation. No areas of low density in the white matter. CEREBELLUM: No masses. No hemorrhage. No alteration of density. No evidence for acute infarction. EXTRAAXIAL SPACES: No fluid collections. No masses. ORBITS AND GLOBE: No intra- or extraconal masses. Normal contour of globe without masses. CALVARIUM: No fracture. PARANASAL SINUSES: No fluid or mucosal thickening. SOFT TISSUES: No mass or hematoma. OTHER: No other significant finding. IMPRESSION: NORMAL BRAIN CT WITHOUT CONTRAST. EVIDENCE OF ACUTE STROKE: NO. COMMENT: Quality ID # [id number]: Final reports with documentation of one or more dose reduction techniques (e.g., Automated exposure control, adjustment of the mA and/or kV according to patient size, use of iterative reconstruction technique) TECHNICAL DOCUMENTATION: JOB ID: [id number] [employer]- All Rights Reserved Reading location - IP/workstation name: [email or web address]
--- NOTE | 2017-10-02 10:07 | RADIOLOGY REPORT (SQ) ---
EXAM DESCRIPTION: CHEST SINGLE VIEW COMPLETED DATE/TIME: 10/02/2017 9:57 am REASON FOR STUDY: DYSPNEA COMPARISON: Two-view chest 02/14/2017, 05/31/2018 AP chest 10/31/2016 EXAM PARAMETERS: NUMBER OF VIEWS: One view. TECHNIQUE: Single frontal radiographic view of the chest acquired. RADIATION DOSE: NA LIMITATIONS: None. FINDINGS: LUNGS AND PLEURA: No opacities, masses or pneumothorax. No pleural effusion. MEDIASTINUM AND HILAR STRUCTURES: No masses. Contour normal. HEART AND VASCULAR STRUCTURES: No cardiomegaly. BONES: No acute findings. HARDWARE: Left-sided dual lead pacemaker. OTHER: No other significant finding. IMPRESSION: NO ACUTE RADIOGRAPHIC FINDING IN THE CHEST. TECHNICAL DOCUMENTATION: JOB ID: [id number] [employer]- All Rights Reserved Reading location - IP/workstation name: [email or web address]
--- NOTE | 2017-10-02 10:29 | ER Document Report ---
ED General - General Chief Complaint: Dizziness Stated Complaint: BREATHING DIFFICULTY Time Seen by Provider: 10/02/17 09:19 Mode of Arrival: Ambulatory TRAVEL OUTSIDE OF THE [place] IN LAST 30 DAYS: No - HPI Notes: 32-year-old male with a past medical history of COPD exacerbation, dilated cardiomyopathy, PTSD, hyperlipidemia and asthma CVA presents to the ER today with complaints of dizziness, shortness of breath left-sided numbness or tingling down his arm and started approximately 2 hours ago after he was at the [employer]. Patient is oxygen dependent, wears 3 L at home. Patient recently seen at his primary care provider 6 days ago. Patient reports he did have an [place] back in the 1980s, did have a stress test done last year patient. States symptoms have been continuous. Denies any bleeding disorders. Worse with time, nothing makes better. Patient states he did not take his blood pressure medications at this time. Patient has a baseline slurred speech with right ptosis from previous CVA. Denies fevers, chills, chest pain,palpitations , nausea, vomiting, diarrhea, abdominal pain, hematuria,blurred vision, double vision, loss of vision, speech changes, syncope, headaches, wheezing, ST, URI, neck pain, weakness, bowel or bladder dysfunction, saddle anesthesia, numbness or tingling in lower extremities equally, muscle paralysis, weakness in bilateral upper or lower extremities equally or rash. Denies IV drug use. - Related Data Allergies/Adverse Reactions: latex [Latex] Allergy (Severe, Verified 10/02/17 09:13) WHITTAKER SKIN Past Medical History - General Information source: Patient - Social History Smoking Status: Never Smoker Family History: Arthritis, CAD, CVA, DM, Hyperlipidemia, Hypertension, Malignancy Patient has suicidal ideation: No Patient has homicidal ideation: No - Past Medical History Cardiac Medical History: Reports: Hx Atrial Fibrillation, Hx Congestive Heart Failure, Hx Coronary Artery Disease, Hx Heart Attack, Hx Hypercholesterolemia, Hx Hypertension, Hx Peripheral Vascular Disease Pulmonary Medical History: Reports: Hx Asthma, Hx Bronchitis, Hx COPD, Hx Pneumonia - X2, Hx Sleep Apnea Neurological Medical History: Reports: Hx Cerebrovascular Accident Renal/ Medical History: Reports: Hx Benign Prostatic Hyperplasia, Hx Kidney Stones. Denies: Hx Peritoneal Dialysis GI Medical History: Reports: Hx Gastroesophageal Reflux Disease, Hx Hiatal Hernia. Denies: Hx Pancreatitis Musculoskeltal Medical History: Reports Hx Arthritis, Reports Hx Musculoskeletal Trauma Psychiatric Medical History: Reports: Hx Depression, Hx Post Traumatic Stress Disorder, Hx Schizoaffective Disorder, Hx Schizophrenia Traumatic Medical History: Reports: Hx Fractures - Left foot Past Surgical History: Reports: Hx Cardiac Surgery - defib, Hx Herniorrhaphy, Hx Pacemaker - Pacemaker defibrillator, Hx Urinary Tract Surgery - prostate. testicle 6-3-14 - Immunizations Immunizations up to date: Yes Hx Diphtheria, Pertussis, Tetanus Vaccination: No Hx Pneumococcal Vaccination: 06/03/10 Review of Systems - Review of Systems Constitutional: See HPI EENT: No symptoms reported Cardiovascular: See HPI Respiratory: No symptoms reported Gastrointestinal: No symptoms reported Genitourinary: No symptoms reported Male Genitourinary: No symptoms reported Musculoskeletal: No symptoms reported Skin: No symptoms reported Hematologic/Lymphatic: No symptoms reported Neurological/Psychological: No symptoms reported Physical Exam - Vital signs Vitals: Temp Pulse Resp BP Pulse Ox 98.4 F 75 20 126/91 H 97 10/02/17 09:17 10/02/17 09:17 10/02/17 09:17 10/02/17 09:17 10/02/17 09:17 - Notes Notes: PHYSICAL EXAMINATION: GENERAL: Well-appearing, well-nourished and in no acute distress. HEAD: Atraumatic, normocephalic. EYES: Pupils equal round and reactive to light, extraocular movements intact, sclera anicteric, conjunctiva are normal. ENT: Nares patent, oropharynx clear without exudates. Moist mucous membranes. NECK: Normal range of motion, supple without lymphadenopathy LUNGS: Breath sounds clear to auscultation bilaterally and equal. No wheezes rales or rhonchi. HEART: Regular rate and rhythm without murmurs ABDOMEN: Soft, nontender, nondistended abdomen. No guarding, no rebound. No masses appreciated. Musculoskeletal: Normal range of motion, no pitting or edema. No cyanosis. NEUROLOGICAL: Cranial nerves grossly intact. Slight slurred speech, which is his baseline. normal gait. Normal sensory, motor exams PSYCH: Normal mood, normal affect. SKIN: Warm, Dry, normal turgor, no rashes or lesions noted. Course - Re-evaluation Re-evalutation: 10/02/17 18:25 62-year-old male presents with complaints of shortness of breath, dizziness left -sided chest pain that started approximately 4 hours ago. CBC negative for leukocytosis or anemia, CMP negative for hepatic or renal dysfunction, no electrolyte disturbances noted. Cardiac enzymes negative, EKG negative for STEMI. BNP 55, no risk for congestive heart failure. Orthostatics sitting, standing and supine on normal. Patient's platelike R at baseline. Negative CT negative for any chest x-ray negative for any acute findings. CT head negative for any acute findings per radiology. Spoke with Dr. Ayala at , patient's primary care provider to consult regarding if patient needs admission , patient insisted on staying overnight for observation due to still having persistent left-sided chest pain but did not have any relief after given nitro, will admit for observation for stable angina, shortness of breath and dizziness although laboratory and diagnostic findings are negative. 10/02/17 18:31 - Vital Signs Vital signs: Temp Pulse Resp BP Pulse Ox 98.4 F 60 24 H 165/107 H 99 10/02/17 09:17 10/02/17 15:00 10/02/17 17:01 10/02/17 17:01 10/02/17 17:01 - Laboratory Result Diagrams: 10/02/17 10:20 10/02/17 10:20 Laboratory results interpreted by me: 10/02/17 10/02/17 10/02/17 10:20 10:20 13:21 RBC 5.58 H MCV 79 L MCH 25.2 L RDW 16.6 H Plt Count 126 L Sodium 148.2 H Chloride 108 H Creatine Kinase 316 H 287 H Discharge - Discharge Clinical Impression: Unstable angina, COPD exacerbation, Dizziness Condition: Good Disposition: ADMITTED OBSERVATION Admitting Provider: Lucy Unit Admitted: Telemetry
[2017-10-02 10:46] LABS: ABSOLUTE EOSINOPHILS # (AUTO) 0.2 10^3/uL (0.0-0.6); ABSOLUTE LYMPHOCYTES (AUTO) 2.1 10^3/uL (0.5-4.7); ABSOLUTE MONOCYTES (AUTO) 0.6 10^3/uL (0.1-1.4); ABSOLUTE NEUT (AUTO) 3.1 10^3/uL (1.7-8.2); BASOPHILS % (AUTO) 0.5 % (0-2); EOSINOPHILS % (AUTO) 3.1 % (0-6); HEMATOCRIT 44.1 % (37.9-51.0); HEMOGLOBIN 14.1 g/dL (13.5-17.0); LYMPHOCYTES % (AUTO) 34.2 % (13-45); MEAN CORPUSCULAR HEMOGLOBIN 25.2 pg (27.0-33.4); MEAN CORPUSCULAR VOLUME 79 fl (80-97); MONOCYTES % (AUTO) 10.6 % (3-13); PLATELET COUNT 126 10^3/uL (150-450); RED BLOOD COUNT 5.58 10^6/uL (4.35-5.55); RED CELL DISTRIBUTION WIDTH 16.6 % (11.5-14.0); SEGMENTED NEUTROPHILS % (AUTO) 51.6 % (42-78); TOTAL CELLS COUNTED % (AUTO) 100 %
[2017-10-02] MEDS ORDERED: ASPIRIN 81 MG TABLET, CHEWABLE PO ONE (11:08)
[2017-10-02 11:11] LABS: ALANINE AMINOTRANSFERASE 38 U/L (21-72); ALBUMIN 3.5 g/dL (3.5-5.0); ALKALINE PHOSPHATASE 82 U/L (38-126); ANION GAP 11 (5-19); ASPARTATE AMINO TRANSFERASE 23 U/L (17-59); BILIRUBIN,DIRECT 0.3 mg/dL (0.0-0.4); BILIRUBIN,TOTAL 0.7 mg/dL (0.2-1.3); BLOOD UREA NITROGEN 15 mg/dL (7-20); CALCIUM 8.7 mg/dL (8.4-10.2); CARBON DIOXIDE 29 mmol/L (22-30); CHLORIDE 108 mmol/L (98-107); CREATINE KINASE 316 U/L (55-170); GLUCOSE 108 mg/dL (75-110); SODIUM 148.2 mmol/L (137-145); TOTAL PROTEIN 6.3 g/dL (6.3-8.2)
[2017-10-02 11:27] LABS: NT PRO BNP 55 pg/mL (5-900)
[2017-10-02 11:29] LABS: TROPONIN I < 0.012 ng/mL
[2017-10-02] MEDS: NITROGLYCERIN 0.4 MG/TAB 25 TAB/BOTTLE SL PRN ×2 (11:35→13:20)
--- NOTE | 2017-10-02 13:34 | RADIOLOGY REPORT (SQ) ---
EXAM DESCRIPTION: CTA CHEST COMPLETED DATE/TIME: 10/02/2017 12:55 pm REASON FOR STUDY: sudden onset sob with dizziness, dyspnea COMPARISON: CT angio chest 03/10/2016, 01/04/2013 Chest films 10/02/2017, 05/06/2017 TECHNIQUE: CT scan of the chest performed using helical scanning technique with dynamic intravenous contrast injection. Images reviewed with lung, soft tissue and bone windows. Reconstructed coronal and sagittal MPR images reviewed. Additional 3 dimensional post-processing performed to develop Maximal Intensity Projection images (NM P). All images stored on PACS. All CT scanners at this facility use dose modulation, iterative reconstruction, and/or weight based d osing when appropriate to reduce radiation dose to as low as reasonably achievable (ALARA). [facility]: Dose Right [facility]: CareDose [facility]: Dose Right [facility]: Teradose 4D [facility]: [employer] CONTRAST TYPE AND DOSE: contrast/concentration: Isovue 370.00 mg/ml; Total Contrast Delivered: 86.0 ml; Total Saline Delivered: 97.0 ml Contrast bolus optimized for the pulmonary arteries. Not diagnostic for the aorta. RENAL FUNCTION: Creatinine 1.16 RADIATION DOSE: CT Rad equipment meets quality standard of care and radiation dose reduction techniq ues were employed. CTDIvol: 33.0 - 41.3 mGy. DLP: 1394 mGy-cm. . LIMITATIONS: Limited contrast bolus in the pulmonary arteries FINDINGS: LUNGS AND PLEURA: No masses, infiltrates, pneumothorax. No pleural effusions, calcificati ons. AORTA AND GREAT VESSELS: No aneurysm. Contrast bolus not optimized for the aorta. HEART: No pericardial effusion. No significant coronary artery calcifications. Calcified aortic valv e PULMONARY ARTERIES: No emboli visualized in the main pulmonary arteries or the segmental branches. HILAR AND MEDIASTINAL STRUCTURES: No identified masses or abnormal nodes. HARDWARE: None in the chest. UPPER ABDOMEN: No significant findings. Limited exam. THYROID AND OTHER SOFT TISSUES: No masses. No adenopathy. BONES: No acute or significant finding. 3D MIPS: Confirm above findings. OTHER: No other significant finding. IMPRESSION: No acute pulmonary emboli. No acute infiltrates or pleural effusion COMMENT: Quality ID # [id number]: Final reports with documentation of one or more dose reduction techniques (e.g., Automated exposure control, adjustment of the mA and/or kV according to patient size, use of iterative reconstruction technique) TECHNICAL DOCUMENTATION: JOB ID: [id number] [employer]- All Rights Reserved Reading location - IP/workstation name: [email or web address]
[2017-10-02 14:17] LABS: TROPONIN I < 0.012 ng/mL
[2017-10-02] MEDS ORDERED: ACETAMINOPHEN WITH CODEINE PO PRN (17:35)
[2017-10-02] MEDS ORDERED: FLUTICASONE NASAL SPRAY 50 MCG/SPRY 120 SPRAY/16 GM NAREB SCH (17:45)
[2017-10-02] MEDS ORDERED: PAROXETINE HCL 20 MG TABLET PO SCH (17:45)
[2017-10-02 17:57] LABS: INTERNATIONAL RATION (INR) 1.11; PROTHROMBIN TIME 14.9 SEC (11.4-15.4)
[2017-10-02 18:03] LABS: PHOSPHORUS 3.3 mg/dL (2.5-4.5)
[2017-10-02 18:20] LABS: FREE T4 (FREE THYROXINE) 1.3 ng/dL (0.78-2.19)
[2017-10-02 18:34] LABS: THYROID STIMULATING HORMONE 0.89 uIU/mL (0.47-4.68)
[2017-10-02] MEDS ORDERED: ACETAMINOPHEN 325 MG TABLET PO PRN (19:27)
[2017-10-02] MEDS ORDERED: CODEINE SULF 30 MG TABLET PO PRN (19:30)
[2017-10-02] MEDS: ALBUTEROL SULFATE 0.083% NEB 2.5 MG/3 ML AMPUL NEB SCH (19:54)
[2017-10-02] MEDS ORDERED: FLUTICASONE NASAL SPRAY 50 MCG/SPRY 120 SPRAY/16 GM NAREB ONE (20:00)
[2017-10-02] MEDS: IPRATROPIUM/ALBUTEROL 0.5-2.5 MG/3 ML AMPUL NEB SCH (20:49)
[2017-10-02] MEDS ORDERED: PAROXETINE HCL 20 MG TABLET PO ONE (21:00)
[2017-10-02] MEDS ORDERED: LISINOPRIL 10 MG TABLET PO ONE (21:00)
[2017-10-02 21:56] LABS: TROPONIN I < 0.012 ng/mL
[2017-10-02] MEDS ORDERED: (PENDING PHARMACY ID) (Doxepin Hcl [Silenor] 6 MG) PO SCH (22:00)
[2017-10-02] MEDS: BENZTROPINE MESYLATE 1 MG TABLET PO SCH (22:12)
[2017-10-02] MEDS: METOPROLOL TARTRATE 50 MG TABLET PO SCH (22:12)
[2017-10-02] MEDS: DOFETILIDE 500 MCG CAPSULE PO SCH (22:13)
[2017-10-02] MEDS: DABIGATRAN ETEXILATE 150 MG CAPSULE PO SCH (22:14)
[2017-10-02] MEDS: BUDESONIDE/FORMOTEROL 160-4.5 MCG 60 PUFF/6 GM MDI IH SCH (22:17)
[2017-10-02] MEDS: METHOCARBAMOL 500 MG TABLET PO SCH (22:17)
--- NOTE | 2017-10-02 23:18 | EKG REPORT ---
SEVERITY:- ABNORMAL ECG - SINUS RHYTHM NONSPECIFIC INTRAVENTRICULAR CONDUCTION DELAY LEFT VENTRICULAR HYPERTROPHY : Confirmed by: Juan Swan 02-Oct-2017 23:16:55
[2017-10-03] MEDS: ALBUTEROL SULFATE 0.083% NEB 2.5 MG/3 ML AMPUL NEB SCH ×3 (00:21→16:04)
[2017-10-03] MEDS: IPRATROPIUM/ALBUTEROL 0.5-2.5 MG/3 ML AMPUL NEB SCH ×4 (01:59→19:57)
[2017-10-03 03:23] LABS: ABSOLUTE EOSINOPHILS # (AUTO) 0.3 10^3/uL (0.0-0.6); ABSOLUTE LYMPHOCYTES (AUTO) 2.1 10^3/uL (0.5-4.7); ABSOLUTE MONOCYTES (AUTO) 0.6 10^3/uL (0.1-1.4); ABSOLUTE NEUT (AUTO) 2.9 10^3/uL (1.7-8.2); BASOPHILS % (AUTO) 0.5 % (0-2); EOSINOPHILS % (AUTO) 4.9 % (0-6); HEMATOCRIT 44.2 % (37.9-51.0); HEMOGLOBIN 14.2 g/dL (13.5-17.0); LYMPHOCYTES % (AUTO) 35.9 % (13-45); MEAN CORPUSCULAR HEMOGLOBIN 25.4 pg (27.0-33.4); MEAN CORPUSCULAR HGB CONC 32.2 g/dL (32.0-36.0); MEAN CORPUSCULAR VOLUME 79 fl (80-97); MONOCYTES % (AUTO) 10.4 % (3-13); PLATELET COUNT 120 10^3/uL (150-450); RED BLOOD COUNT 5.59 10^6/uL (4.35-5.55); RED CELL DISTRIBUTION WIDTH 17.3 % (11.5-14.0); SEGMENTED NEUTROPHILS % (AUTO) 48.3 % (42-78); TOTAL CELLS COUNTED % (AUTO) 100 %
[2017-10-03 03:46] LABS: ALANINE AMINOTRANSFERASE 38 U/L (21-72); ALBUMIN 3.4 g/dL (3.5-5.0); ALKALINE PHOSPHATASE 69 U/L (38-126); ANION GAP 9 (5-19); ASPARTATE AMINO TRANSFERASE 21 U/L (17-59); BILIRUBIN,DIRECT 0.3 mg/dL (0.0-0.4); BILIRUBIN,TOTAL 0.5 mg/dL (0.2-1.3); BLOOD UREA NITROGEN 15 mg/dL (7-20); CALCIUM 8.5 mg/dL (8.4-10.2); CARBON DIOXIDE 29 mmol/L (22-30); CHLORIDE 109 mmol/L (98-107); CREATINE KINASE 223 U/L (55-170); GLUCOSE 152 mg/dL (75-110); POTASSIUM 4.3 mmol/L (3.6-5.0); SODIUM 146.8 mmol/L (137-145); TOTAL PROTEIN 6.4 g/dL (6.3-8.2)
[2017-10-03 03:58] LABS: CREATINE KINASE MB 1.32 ng/mL (<4.55)
[2017-10-03 04:07] LABS: TROPONIN I < 0.012 ng/mL
[2017-10-03] MEDS: BENZTROPINE MESYLATE 1 MG TABLET PO SCH ×2 (10:10→17:26)
[2017-10-03] MEDS: BUDESONIDE/FORMOTEROL 160-4.5 MCG 60 PUFF/6 GM MDI IH SCH ×2 (10:12→22:17)
[2017-10-03] MEDS: DABIGATRAN ETEXILATE 150 MG CAPSULE PO SCH ×2 (10:13→22:18)
[2017-10-03] MEDS: DOFETILIDE 500 MCG CAPSULE PO SCH ×2 (10:16→22:18)
[2017-10-03] MEDS: FINASTERIDE 5 MG TABLET PO SCH (10:17)
[2017-10-03] MEDS: FLUTICASONE NASAL SPRAY 50 MCG/SPRY 120 SPRAY/16 GM NAREB SCH (10:18)
[2017-10-03] MEDS: LISINOPRIL 10 MG TABLET PO SCH (10:19)
[2017-10-03] MEDS: METHOCARBAMOL 500 MG TABLET PO SCH ×2 (10:20→22:18)
[2017-10-03] MEDS: METOPROLOL TARTRATE 50 MG TABLET PO SCH ×2 (10:21→22:16)
[2017-10-03] MEDS: PAROXETINE HCL 20 MG TABLET PO SCH (10:22)
[2017-10-03 10:35] LABS: CREATINE KINASE MB 1.44 ng/mL (<4.55); TROPONIN I < 0.012 ng/mL
[2017-10-03] MEDS: ARIPIPRAZOLE 5 MG TABLET PO SCH (12:37)
--- NOTE | 2017-10-03 21:02 | PDOC H&P ---
History of Present Illness Admission Date/PCP: 10/02/17 15:34 CARMEN GANT MD History of Present Illness: KRISH RAMOS JR is a 62 year old male,He has a history of morbid obesity nonischemic cardiomyopathy, schizoaffective disorder, asthmatic bronchitis, he came to the emergency room for evaluation of shortness of breath numbness and atypical chest pain in the emergency room he was evaluated, CTA chest was done it was negative, the initial cardiac enzymes were negative, patient was admitted for observation to rule out acute coronary syndrome Past Medical History Cardiac Medical History: Reports: Atrial Fibrillation, Congestive Heart Failure , Coronary Artery Disease, Myocardial Infarction, Hyperlipidema, Hypertension, Peripheral Vascular Disease Pulmonary Medical History: Reports: Asthma, Bronchitis, Chronic Obstructive Pulmonary Disease (COPD), Pneumonia - X2, Sleep Apnea GI Medical History: Reports: Gastroesophageal Reflux Disease, Hiatal Hernia Musculoskeltal Medical History: Reports: Arthritis Psychiatric Medical History: Reports: Depression, Post Traumatic Stress Disorder , Schizoaffective Disorder Hematology: Reports: Anemia - ON IRON PILLS Past Surgical History Past Surgical History: Reports: Herniorrhaphy, Pacemaker - Pacemaker defibrillator Social History Smoking Status: Never Smoker Frequency of Alcohol Use: None Hx Recreational Drug Use: No Drugs: None Hx Prescription Drug Abuse: No - Advance Directive Resuscitation Status: Full Code Family History Family History: Arthritis, CAD, CVA, DM, Hyperlipidemia, Hypertension, Malignancy Parental Family History Reviewed: Yes Children Family History Reviewed: Yes Sibling(s) Family History Reviewed.: Yes Medication/Allergy Home Medications: Acetaminophen with Codeine [Acetaminophen-Cod #4 Tablet] 1 tab PO Q6HP PRN 10/02 Albuterol Sulfate [Albuterol Sulfate 2.5mg/3 mL] 1 vial IH RTQ8 10/02/17 Albuterol Sulfate [Proair HFA Inhalation Aerosol 8.5 gm MDI] 2 puff IH Q4HP PRN 10/02/17 Aripiprazole [Abilify 30 mg Tablet] 30 mg PO DAILY 10/02/17 Benztropine Mesylate [Benztropine Mesylate 2 mg Tablet] 2 mg PO BID 10/02/17 Budesonide/Formoterol Fumarate [Symbicort 160-4.5 Mcg Inhaler] 2 puff IH Q12 07/21 Clonazepam [Klonopin 1 mg Tablet] 1 mg PO Q12 10/02/17 Dabigatran Etexilate Mesylate [Pradaxa 150 mg Capsule] 150 mg PO Q12 10/02/17 Dofetilide [Tikosyn 500 Mcg Capsule] 500 mcg PO BID 10/02/17 Doxepin HCl [Silenor] 6 mg PO QHS 10/02/17 Finasteride [Proscar 5 mg Tablet] 5 mg PO DAILY 10/02/17 Fluticasone Propionate [Flonase Nasal Queen 50 Mcg/Queen 16 gm] 1 spray NAREB DAILY 10/02/17 Furosemide [Lasix 40 mg Tablet] 40 mg PO QAM 10/02/17 Ipratropium/Albuterol Sulfate [Duoneb 3 ml Ampul] 3 ml NEB RTQ6 10/02/17 Lisinopril [Prinivil 10 mg Tablet] 10 mg PO DAILY 10/02/17 Methocarbamol [Robaxin 500 mg Tablet] 500 mg PO BID 10/02/17 Metoprolol Tartrate [Lopressor 50 mg Tablet] 50 mg PO Q12 10/02/17 Paroxetine HCl [Paxil] 30 mg PO DAILY 10/02/17 Piroxicam [Feldene] 20 mg PO DAILY 10/02/17 Potassium Chloride [Klor-Con 10 Meq Tablet.sa] 10 meq PO DAILY 10/02/17 Allergies/Adverse Reactions: latex [Latex] Allergy (Severe, Verified 10/02/17 09:13) WHITTAKER SKIN Review of Systems Constitutional: ABSENT: chills, fever(s), headache(s), weight gain, weight loss Eyes: ABSENT: visual disturbances Ears: ABSENT: hearing changes Cardiovascular: PRESENT: chest pain. ABSENT: dyspnea on exertion, edema, orthropnea, palpitations Respiratory: ABSENT: cough, hemoptysis Gastrointestinal: ABSENT: abdominal pain, constipation, diarrhea, hematemesis, hematochezia, nausea, vomiting Genitourinary: ABSENT: dysuria, hematuria Musculoskeletal: ABSENT: joint swelling Integumentary: ABSENT: rash, wounds Neurological: ABSENT: abnormal gait, abnormal speech, confusion, dizziness, focal weakness, syncope Psychiatric: ABSENT: anxiety, depression, homidical ideation, suicidal ideation Endocrine: ABSENT: cold intolerance, heat intolerance, menstrual abnormalities, polydipsia, polyuria Hematologic/Lymphatic: ABSENT: easy bleeding, easy bruising, lymphadenopathy Physical Exam Vital Signs: Temp Pulse Resp BP Pulse Ox 98.5 F 63 16 134/87 H 99 10/03/17 16:56 10/03/17 16:56 10/03/17 16:56 10/03/17 16:56 10/03/17 16:56 Intake & Output 10/02/17 10/03/17 10/04/17 06:59 06:59 06:59 Intake Total 1012 210 Balance 1012 210 Weight 133.5 kg General appearance: PRESENT: no acute distress, well-developed, well-nourished Head exam: PRESENT: atraumatic, normocephalic Eye exam: PRESENT: conjunctiva pink, EOMI, PERRLA Ear exam: PRESENT: normal external ear exam Mouth exam: PRESENT: moist, tongue midline Neck exam: PRESENT: full ROM Respiratory exam: PRESENT: clear to auscultation martita Cardiovascular exam: PRESENT: RRR, +S1, +S2 Pulses: PRESENT: normal dorsalis pedis pul, +2 pedal pulses bilateral Vascular exam: PRESENT: normal capillary refill GI/Abdominal exam: PRESENT: normal bowel sounds, soft Rectal exam: PRESENT: deferred Neurological exam: PRESENT: alert, awake, oriented to person, oriented to place , oriented to time, oriented to situation, CN II-XII grossly intact Psychiatric exam: PRESENT: appropriate affect, normal mood Skin exam: PRESENT: dry, intact, warm. ABSENT: cyanosis, rash Results Laboratory Results: 10/03/17 03:15 10/03/17 03:15 10/03/17 10/03/17 03:15 03:15 WBC 6.0 RBC 5.59 H Hgb 14.2 Hct 44.2 MCV 79 L MCH 25.4 L MCHC 32.2 RDW 17.3 H Plt Count 120 L Seg Neutrophils % 48.3 Lymphocytes % 35.9 Monocytes % 10.4 Eosinophils % 4.9 Basophils % 0.5 Absolute Neutrophils 2.9 Absolute Lymphocytes 2.1 Absolute Monocytes 0.6 Absolute Eosinophils 0.3 Absolute Basophils 0.0 Sodium 146.8 H Potassium 4.3 Chloride 109 H Carbon Dioxide 29 Anion Gap 9 BUN 15 Creatinine 1.09 Est GFR ( Amer) > 60 Est GFR (Non-Af Amer) > 60 Glucose 152 H Calcium 8.5 Total Bilirubin 0.5 AST 21 ALT 38 Alkaline Phosphatase 69 Total Protein 6.4 Albumin 3.4 L 05/02/18 05/02/18 05/03/18 21:10 21:10 03:15 Creatine Kinase 249 H CK-MB (CK-2) 1.50 1.32 Troponin I < 0.012 < 0.012 10/03/17 10/03/17 10/03/17 03:15 09:30 09:30 Creatine Kinase 223 H 220 H CK-MB (CK-2) 1.44 Troponin I < 0.012 Impressions: Chest X-Ray 10/02/17 09:21 IMPRESSION: NO ACUTE RADIOGRAPHIC FINDING IN THE CHEST. Head CT 10/02/17 09:29 IMPRESSION: NORMAL BRAIN CT WITHOUT CONTRAST. EVIDENCE OF ACUTE STROKE: NO. Chest/Abdomen CTA 10/02/17 11:07 IMPRESSION: No acute pulmonary emboli. No acute infiltrates or pleural effusion Assessment & Plan - Diagnosis (1) Chest pain Qualifiers: Chest pain type: unspecified Qualified Code(s): R07.9 - Chest pain, unspecified Is this a current diagnosis for this admission?: Yes Plan: The chest pain is atypical, patient is admitted for observation (2) Chronic atrial fibrillation Is this a current diagnosis for this admission?: Yes (3) Morbidly obese Is this a current diagnosis for this admission?: Yes (4) Obstructive sleep apnea Is this a current diagnosis for this admission?: Yes
[2017-10-04] MEDS: ALBUTEROL SULFATE 0.083% NEB 2.5 MG/3 ML AMPUL NEB SCH ×2 (00:52→07:54)
[2017-10-04] MEDS: IPRATROPIUM/ALBUTEROL 0.5-2.5 MG/3 ML AMPUL NEB SCH ×2 (02:23→08:27)
[2017-10-04 07:36] LABS: ABSOLUTE EOSINOPHILS # (AUTO) 0.3 10^3/uL (0.0-0.6); ABSOLUTE LYMPHOCYTES (AUTO) 2.7 10^3/uL (0.5-4.7); ABSOLUTE MONOCYTES (AUTO) 0.7 10^3/uL (0.1-1.4); ABSOLUTE NEUT (AUTO) 2.6 10^3/uL (1.7-8.2); BASOPHILS % (AUTO) 0.4 % (0-2); EOSINOPHILS % (AUTO) 4.6 % (0-6); HEMATOCRIT 43.4 % (37.9-51.0); HEMOGLOBIN 13.9 g/dL (13.5-17.0); LYMPHOCYTES % (AUTO) 42.6 % (13-45); MEAN CORPUSCULAR HEMOGLOBIN 25.4 pg (27.0-33.4); MEAN CORPUSCULAR VOLUME 80 fl (80-97); PLATELET COUNT 123 10^3/uL (150-450); RED BLOOD COUNT 5.46 10^6/uL (4.35-5.55); RED CELL DISTRIBUTION WIDTH 17.5 % (11.5-14.0); SEGMENTED NEUTROPHILS % (AUTO) 41.4 % (42-78); TOTAL CELLS COUNTED % (AUTO) 100 %; WHITE BLOOD COUNT 6.3 10^3/uL (4.0-10.5)
[2017-10-04 07:53] LABS: ALANINE AMINOTRANSFERASE 33 U/L (21-72); ALBUMIN 3.4 g/dL (3.5-5.0); ALKALINE PHOSPHATASE 69 U/L (38-126); ANION GAP 11 (5-19); ASPARTATE AMINO TRANSFERASE 16 U/L (17-59); BILIRUBIN,DIRECT 0.3 mg/dL (0.0-0.4); BILIRUBIN,TOTAL 0.4 mg/dL (0.2-1.3); BLOOD UREA NITROGEN 14 mg/dL (7-20); CALCIUM 8.7 mg/dL (8.4-10.2); CARBON DIOXIDE 28 mmol/L (22-30); CHLORIDE 107 mmol/L (98-107); GLUCOSE 97 mg/dL (75-110); POTASSIUM 4.5 mmol/L (3.6-5.0); SODIUM 145.9 mmol/L (137-145); TOTAL PROTEIN 6.3 g/dL (6.3-8.2)
[2017-10-04] MEDS: METOPROLOL TARTRATE 50 MG TABLET PO SCH (09:57)
[2017-10-04] MEDS: BENZTROPINE MESYLATE 1 MG TABLET PO SCH (09:57)
[2017-10-04] MEDS: PAROXETINE HCL 20 MG TABLET PO SCH (09:58)
[2017-10-04] MEDS: FINASTERIDE 5 MG TABLET PO SCH (09:58)
[2017-10-04] MEDS: LISINOPRIL 10 MG TABLET PO SCH (09:58)
[2017-10-04] MEDS: ARIPIPRAZOLE 5 MG TABLET PO SCH (10:00)
[2017-10-04] MEDS: BUDESONIDE/FORMOTEROL 160-4.5 MCG 60 PUFF/6 GM MDI IH SCH (10:01)
[2017-10-04] MEDS: DABIGATRAN ETEXILATE 150 MG CAPSULE PO SCH (10:02)
[2017-10-04] MEDS: FLUTICASONE NASAL SPRAY 50 MCG/SPRY 120 SPRAY/16 GM NAREB SCH (10:02)
[2017-10-04] MEDS: METHOCARBAMOL 500 MG TABLET PO SCH (10:04)
[2017-10-04] MEDS: DOFETILIDE 500 MCG CAPSULE PO SCH (10:04)
[2017-10-04 10:20] VITALS: BP 164/80
== END 2017-10-04 12:31 | disposition home or self-care (01) ==
LOC: ER 09:07 → EH 15:34 → 5 19:53
PROVIDERS: ADMIT Internal Medicine; ATTEND Internal Medicine
DX: R07.89 Other chest pain (principal); I48.2 Chronic atrial fibrillation; E66.01 Morbid (severe) obesity due to excess calories; Z68.41 Body mass index [BMI] 40.0-44.9, adult; G47.33 Obstructive sleep apnea (adult) (pediatric); I42.8 Other cardiomyopathies; I25.10 Atherosclerotic heart disease of native coronary artery without angina pectoris; I11.0 Hypertensive heart disease with heart failure; I50.9 Heart failure, unspecified; J44.9 Chronic obstructive pulmonary disease, unspecified; I25.2 Old myocardial infarction; I69.328 Other speech and language deficits following cerebral infarction; I69.398 Other sequelae of cerebral infarction; H02.401 Unspecified ptosis of right eyelid; Z79.899 Other long term (current) drug therapy; Z79.02 Long term (current) use of antithrombotics/antiplatelets; Z95.810 Presence of automatic (implantable) cardiac defibrillator; Z82.49 Family history of ischemic heart disease and other diseases of the circulatory system; Z99.81 Dependence on supplemental oxygen
CPT/HCPCS: 93005; 99285; 36415 ×3; 84439; 82553 ×2; 82550 ×2; 83735; 84100; 84443; 85025 ×3; 85610; 80076 ×2; 80048 ×2; 80053; 84484 ×2; 83880; 71045; 70450; 71275; 93010; 94640 ×3; J3490 ×4; J7620 ×3

== ENCOUNTER 2017-11-15 11:14 | Emergency (ER) | payer OTHER, MEDICARE ==
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
--- NOTE | 2017-11-15 12:44 | RADIOLOGY REPORT (SQ) ---
EXAM DESCRIPTION: ANKLE LEFT COMPLETE COMPLETED DATE/TIME: 11/15/2017 12:27 pm REASON FOR STUDY: injury COMPARISON: None. NUMBER OF VIEWS: Three views. TECHNIQUE: AP, lateral, and oblique radiographic images acquired of the left ankle. LIMITATIONS: None. FINDINGS: MINERALIZATION: Normal. BONES: No acute fracture or dislocation. No worrisome bone lesions. JOINTS: Ankle mortise intact. SOFT TISSUES: Soft tissue swelling is noted. OTHER: No other significant finding. IMPRESSION: No acute fracture or dislocation identified of the left ankle. TECHNICAL DOCUMENTATION: JOB ID: [id number] [employer]- All Rights Reserved Reading location - IP/workstation name: [email or web address]
[2017-11-15 13:45] VITALS: BP 148/68
== END 2017-11-15 13:45 | disposition home or self-care (01) ==
LOC: ER 11:14
PROC: 2W3RX1Z Immobilization of Left Lower Leg using Splint (ICD-10-PCS; principal; 2017-11-15)
DX: S93.402A Sprain of unspecified ligament of left ankle, initial encounter (principal); M79.89 Other specified soft tissue disorders; X50.1XXA Overexertion from prolonged static or awkward postures, initial encounter; Z87.891 Personal history of nicotine dependence; I25.10 Atherosclerotic heart disease of native coronary artery without angina pectoris; I10 Essential (primary) hypertension; J44.9 Chronic obstructive pulmonary disease, unspecified
CPT/HCPCS: 99283; 73610; 29515; L1902

== ENCOUNTER 2017-11-30 15:32 | Emergency (ER) | payer OTHER, MEDICARE ==
[2017-11-30] MEDS ORDERED: ASPIRIN 81 MG TABLET, CHEWABLE PO ONE (15:57)
[2017-11-30 16:11] LABS: ABSOLUTE EOSINOPHILS # (AUTO) 0.2 10^3/uL (0.0-0.6); ABSOLUTE LYMPHOCYTES (AUTO) 2.6 10^3/uL (0.5-4.7); ABSOLUTE MONOCYTES (AUTO) 0.8 10^3/uL (0.1-1.4); BASOPHILS % (AUTO) 0.3 % (0-2); EOSINOPHILS % (AUTO) 3.5 % (0-6); HEMATOCRIT 46.7 % (37.9-51.0); HEMOGLOBIN 15.2 g/dL (13.5-17.0); LYMPHOCYTES % (AUTO) 39.2 % (13-45); MEAN CORPUSCULAR HEMOGLOBIN 25.7 pg (27.0-33.4); MEAN CORPUSCULAR HGB CONC 32.4 g/dL (32.0-36.0); MEAN CORPUSCULAR VOLUME 79 fl (80-97); MONOCYTES % (AUTO) 11.7 % (3-13); PLATELET COUNT 131 10^3/uL (150-450); RED BLOOD COUNT 5.88 10^6/uL (4.35-5.55); RED CELL DISTRIBUTION WIDTH 18.4 % (11.5-14.0); SEGMENTED NEUTROPHILS % (AUTO) 45.3 % (42-78); TOTAL CELLS COUNTED % (AUTO) 100 %; WHITE BLOOD COUNT 6.7 10^3/uL (4.0-10.5)
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
[2017-11-30 16:27] LABS: CREATINE KINASE MB 0.34 ng/mL (<4.55); TROPONIN I 0.033 ng/mL
[2017-11-30 16:53] LABS: ALANINE AMINOTRANSFERASE 22 U/L (21-72); ALBUMIN 4.2 g/dL (3.5-5.0); ALKALINE PHOSPHATASE 88 U/L (38-126); ANION GAP 18 (5-19); ASPARTATE AMINO TRANSFERASE 27 U/L (17-59); BILIRUBIN,DIRECT 0.5 mg/dL (0.0-0.4); BILIRUBIN,TOTAL 0.5 mg/dL (0.2-1.3); BLOOD UREA NITROGEN 16 mg/dL (7-20); CALCIUM 9.3 mg/dL (8.4-10.2); CARBON DIOXIDE 24 mmol/L (22-30); CHLORIDE 105 mmol/L (98-107); CREATINE KINASE 168 U/L (55-170); GLUCOSE 146 mg/dL (75-110); POTASSIUM 4.2 mmol/L (3.6-5.0); SODIUM 147.2 mmol/L (137-145); TOTAL PROTEIN 7.7 g/dL (6.3-8.2)
[2017-11-30] MEDS ORDERED: NORMAL SALINE 500 ML IV ONE (16:57)
--- NOTE | 2017-11-30 17:50 | RADIOLOGY REPORT (SQ) ---
EXAM DESCRIPTION: CHEST SINGLE VIEW COMPLETED DATE/TIME: 11/30/2017 5:33 pm REASON FOR STUDY: chest pain COMPARISON: Chest x-ray 10/02/2017, 05/06/2017. EXAM PARAMETERS: NUMBER OF VIEWS: One view. TECHNIQUE: Single frontal radiographic view of the chest acquired. RADIATION DOSE: NA LIMITATIONS: None. FINDINGS: LUNGS AND PLEURA: No consolidation, pneumothorax or pleural effusion. MEDIASTINUM AND HILAR STRUCTURES: No masses. Contour normal. HEART AND VASCULAR STRUCTURES: Heart normal in size. Normal vasculature. BONES: No acute findings. HARDWARE: There is a left-sided pacemaker. IMPRESSION: No acute radiographic finding in the chest. TECHNICAL DOCUMENTATION: JOB ID: [id number] [employer]- All Rights Reserved Reading location - IP/workstation name: [email or web address]
--- NOTE | 2017-11-30 17:52 | XCELERA REPORT ---
[address] [address] Transthoracic Echocardiogram Report Name: KRISH RAMOS JR Age: 62 yrs Gender: Male : 1955 Patient Status: Preadmit Patient Location: ER Study Date: 11/30/2017 04:57 PM Height: 69 in Weight: 275 lb BSA: 2.4 m2 Procedure: A complete two-dimensional transthoracic echocardiogram was performed (2D, M-mode, spectral and color flow Doppler). The study was technically difficult with many images being suboptimal in quality. Reason For Study: chest pain Ordering Physician: WILLIAM BERG Performed By: Genia Okeefe Interpretation Summary The Ejection Fraction estimate is 40-45% There is moderate concentric left ventricular hypertrophy. The left ventricle is grossly normal size. Left ventricular systolic function is mild to moderately reduced. Doppler measurements suggest pseudonormalized left ventricular relaxation, which is associated with grade II/IV or mild to moderate diastolic dysfunction Wall motion cannot be accurately commented on, but no definite regional wall motion abnormalities noted. The right ventricular systolic function is normal. The left atrium is mildly dilated. The right atrium is normal in size There is a trace amount of mitral regurgitation There is no mitral valve stenosis. There is a trace amount of aortic regurgitation There is no aortic valve stenosis There is a trace or physiologic amount of tricuspid regurgitation Tricuspid regurgitation jet envelope not well defined to measure RV systolic pressure accurately. The aortic root is not well visualized. The inferior vena cava was not well visualized There is no pericardial effusion. MMode/2D Measurements & Calculations RVDd: 2.3 cm LVIDd: 5.2 cm FS: 21.1 % Ao root diam: 3.1 cm IVSd: 1.0 cm LVIDs: 4.1 cm EDV(Teich): 127.0 ml LVPWd: 1.1 cm ESV(Teich): 72.8 ml Ao root area: 7.4 cm2 EF(Teich): 42.6 % LA dimension: 3.7 cm Doppler Measurements & Calculations MV E max john: MV P1/2t max john: Ao V2 max: LV V1 max P.8 cm/sec 95.3 cm/sec 159.0 cm/sec 4.0 mmHg MV P1/2t: 56.4 msec Ao max PG: LV V1 max: 10.1 mmHg 100.2 cm/sec MVA(P1/2t): 3.9 cm2 MV dec slope: 494.6 cm/sec2 MV dec time: 0.19 sec PA V2 max: 80.5 cm/sec PA max P.6 mmHg Left Ventricle The left ventricle is grossly normal size. There is moderate concentric left ventricular hypertrophy. Left ventricular systolic function is mild to moderately reduced. The Ejection Fraction estimate is 40-45%. Doppler measurements suggest pseudonormalized left ventricular relaxation, which is associated with grade II/IV or mild to moderate diastolic dysfunction. Wall motion cannot be accurately commented on, but no definite regional wall motion abnormalities noted. Right Ventricle The right ventricle is grossly normal size. There is normal right ventricular wall thickness. The right ventricular systolic function is normal. Atria The right atrium is normal in size. The left atrium is mildly dilated. Interarterial septum not well visualized and not well dopplered. Cannot comment on ASD/PFO presence. Mitral Valve The mitral valve leaflets are sclerotic, but show no functional abnormalities. There is no mitral valve stenosis. There is a trace amount of mitral regurgitation. Aortic Valve The aortic valve opens well. There is no aortic valve stenosis. There is a trace amount of aortic regurgitation. Tricuspid Valve The tricuspid valve is not well visualized, but is grossly normal. There is no tricuspid stenosis. There is a trace or physiologic amount of tricuspid regurgitation. Tricuspid regurgitation jet envelope not well defined to measure RV systolic pressure accurately. Pulmonic Valve The pulmonic valve is not well visualized. Great Vessels The aortic root is not well visualized. The inferior vena cava was not well visualized. Effusions There is no pericardial effusion. : WILLIAM BERG > Juan Swan
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
[2017-11-30] MEDS ORDERED: METOPROLOL SUCCINATE 50 MG TAB.SR.24H PO SCH (18:00)
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
--- NOTE | 2017-11-30 22:54 | EKG REPORT ---
SEVERITY:- ABNORMAL ECG - AFIB/FLUT AND V-PACED COMPLEXES CONSIDER LEFT VENTRICULAR HYPERTROPHY BORDERLINE PROLONGED QT INTERVAL : Confirmed by: Ana Jon MD 30-Nov-2017 22:53:30
--- NOTE | 2017-11-30 22:56 | EKG REPORT ---
SEVERITY:- ABNORMAL ECG - VENTRICULAR-PACED COMPLEXES : Confirmed by: Ana Jon MD 30-Nov-2017 22:55:54
[2017-11-30 23:05] VITALS: BP 139/93
== END 2017-11-30 22:45 | disposition home or self-care (01) ==
LOC: ER 15:32
DX: R07.89 Other chest pain (principal); M54.9 Dorsalgia, unspecified; R10.9 Unspecified abdominal pain; V47.6XXA Car passenger injured in collision with fixed or stationary object in traffic accident, initial encounter; I48.91 Unspecified atrial fibrillation; Z79.02 Long term (current) use of antithrombotics/antiplatelets; I49.3 Ventricular premature depolarization; I25.10 Atherosclerotic heart disease of native coronary artery without angina pectoris; I10 Essential (primary) hypertension; I25.2 Old myocardial infarction; J44.9 Chronic obstructive pulmonary disease, unspecified; Z91.040 Latex allergy status; Z95.810 Presence of automatic (implantable) cardiac defibrillator
CPT/HCPCS: 93005; 99285; 96360; 36415; 82553; 82550; 85025; 80053; 84484; 93306; 73610; 71045; 73590; 70450; 71260; 72125; 74177; 93010; J7040

== ENCOUNTER 2018-09-15 06:19 | Inpatient (IN) | payer OTHER, MEDICARE ==
[2018-09-15] MEDS ORDERED: DILTIAZEM HCL INJ 25 MG/5 ML VIAL ONE (07:03)
[2018-09-15] MEDS ORDERED: DILTIAZEM HCL/D5W 125 MG/125 ML RTUINJ IV ONE (07:05)
[2018-09-15] MEDS ORDERED: DILTIAZEM HCL/D5W 125 MG/125 ML RTUINJ IV PRN (07:06)
[2018-09-15] MEDS ORDERED: DILTIAZEM HCL INJ 25 MG/5 ML VIAL IV ONE ×3 (07:06→07:15)
[2018-09-15] MEDS ORDERED: NORMAL SALINE 1000 ML 500 ML IV ONE (07:06)
[2018-09-15 07:18] LABS: ABSOLUTE LYMPHOCYTES (AUTO) 1.4 10^3/uL (0.5-4.7); ABSOLUTE MONOCYTES (AUTO) 1.2 10^3/uL (0.1-1.4); ABSOLUTE NEUT (AUTO) 11.1 10^3/uL (1.7-8.2); BASOPHILS % (AUTO) 0.3 % (0-2); EOSINOPHILS % (AUTO) 0.1 % (0-6); HEMOGLOBIN 16.3 g/dL (13.5-17.0); LYMPHOCYTES % (AUTO) 9.9 % (13-45); MEAN CORPUSCULAR HEMOGLOBIN 27.2 pg (27.0-33.4); MEAN CORPUSCULAR HGB CONC 33.3 g/dL (32.0-36.0); MEAN CORPUSCULAR VOLUME 82 fl (80-97); MONOCYTES % (AUTO) 8.6 % (3-13); PLATELET COUNT 130 10^3/uL (150-450); RED BLOOD COUNT 5.98 10^6/uL (4.35-5.55); RED CELL DISTRIBUTION WIDTH 16.9 % (11.5-14.0); SEGMENTED NEUTROPHILS % (AUTO) 81.1 % (42-78); TOTAL CELLS COUNTED % (AUTO) 100 %; WHITE BLOOD COUNT 13.6 10^3/uL (4.0-10.5)
--- NOTE | 2018-09-15 07:18 | ER Document Report ---
ED General - General Chief Complaint: Constipation Stated Complaint: ABDOMINAL PAIN Time Seen by Provider: 09/15/18 07:05 TRAVEL OUTSIDE OF THE [place] IN LAST 30 DAYS: No - HPI Notes: Patient is a 63-year-old male that presents to the emergency department for chief complaint of abdominal pain and distention. Patient reports feeling abdominal pain that is diffuse and sharp in nature for the last 3-4 days. He denies associated fevers or chills. He does report decreased appetite nausea and intermittent vomiting. He states he feels like his abdomen is very bloated and distended. He is denying any chest pain or shortness of breath. He denies any relieving factors to his pain but states that eating has made it worse. Patient does wear 3 L nasal cannula oxygen for COPD at all times. He reports usually using CPAP at night but his has been broken recently. Past Medical History: Atrial fibrillation, hypertension, COPD, CHF, hyperlipidemia Past Surgical History: Reviewed in chart Social History: Denies tobacco or alcohol use Family History: Reviewed and noncontributory for presenting illness Allergies: Reviewed, see documented allergy list. REVIEW OF SYSTEMS: CONSTITUTIONAL : No fever No chills No diaphoresis No recent illness EENT: No vision changes No congestion No sore throat CARDIOVASCULAR: No chest pain No palpitations RESPIRATORY: No shortness of breath No cough No difficulty breathing GASTROINTESTINAL: abdominal pain nausea vomiting No diarrhea GENITOURINARY: No dysuria No hematuria No difficulty urinating MUSCULOSKELETAL: No back pain No leg pain No arm pain SKIN: No rashes No lesions LYMPHATIC: No swollen, enlarged glands. NEUROLOGICAL: No lightheadedness No headache No weakness No paresthesias PSYCHIATRIC: No anxiety No depression PHYSICAL EXAMINATION: Vital signs reviewed, nursing noted reviewed. GENERAL: Appears uncomfortable, obese, in moderate distress. HEAD: Atraumatic, normocephalic. EYES: Eyes appear normal, extraocular movements intact, sclera anicteric, conjunctiva are normal. ENT: nares patent, oropharynx clear without exudates. Moist mucous membranes. NECK: Normal range of motion, supple without lymphadenopathy LUNGS: Tachypneic, no accessory muscle use, breath sounds have by basilar rhonchi and are diffusely diminished HEART: Irregularly irregular rhythm and tachycardic rate without murmurs ABDOMEN: Distended, soft, mild diffuse tenderness, No rebound, guarding, or rigidity. No masses appreciated. EXTREMITIES: Nontender, good range of motion, +2 bilateral lower extremity pitting edema NEUROLOGICAL: No focal neurological deficits. Moves all extremities spontaneously Motor and sensory grossly intact on exam. PSYCH: Normal mood, normal affect. SKIN: Warm, Dry, normal turgor, no rashes or lesions noted on exposed skin - Related Data Allergies/Adverse Reactions: latex [Latex] Allergy (Severe, Verified 11/15/17 11:14) WHITTAKER SKIN Past Medical History - Social History Smoking Status: Never Smoker Family History: Arthritis, CAD, CVA, DM, Hyperlipidemia, Hypertension, Malignancy - Past Medical History Cardiac Medical History: Reports: Hx Atrial Fibrillation, Hx Congestive Heart Failure, Hx Coronary Artery Disease, Hx Heart Attack, Hx Hypercholesterolemia, Hx Hypertension, Hx Peripheral Vascular Disease Pulmonary Medical History: Reports: Hx Asthma, Hx Bronchitis, Hx COPD, Hx Pneumonia - X2, Hx Sleep Apnea Neurological Medical History: Reports: Hx Cerebrovascular Accident Renal/ Medical History: Reports: Hx Benign Prostatic Hyperplasia, Hx Kidney Stones. Denies: Hx Peritoneal Dialysis GI Medical History: Reports: Hx Gastroesophageal Reflux Disease, Hx Hiatal Hernia. Denies: Hx Pancreatitis Musculoskeletal Medical History: Reports Hx Arthritis, Reports Hx Musculoskeletal Trauma Psychiatric Medical History: Reports: Hx Depression, Hx Post Traumatic Stress Disorder, Hx Schizoaffective Disorder, Hx Schizophrenia Traumatic Medical History: Reports: Hx Fractures - Left foot Past Surgical History: Reports: Hx Cardiac Surgery - defib, Hx Herniorrhaphy, Hx Pacemaker - Pacemaker defibrillator, Hx Urinary Tract Surgery - prostate. testicle 6-3-14 - Immunizations Immunizations up to date: Yes Hx Diphtheria, Pertussis, Tetanus Vaccination: No Hx Pneumococcal Vaccination: 06/03/10 Physical Exam - Vital signs Vitals: Temp Pulse Resp BP Pulse Ox 99 F 103 H 24 H 113/70 95 09/15/18 06:27 09/15/18 06:27 09/15/18 06:27 09/15/18 06:27 09/15/18 06:27 Course - Re-evaluation Re-evalutation: 09/15/18 07:09 Vitals reviewed. Nursing notes reviewed. Patient is in atrial fibrillation with RVR and was given a dose of Cardizem. His presenting blood pressure was stable. Heart rate and blood pressure are improving with Cardizem. Patient states he is feeling better. He is tachypneic and will be placed on CPAP for respiratory support. 09/15/18 08:29 Patient was maxed out on the Cardizem infusion and blood pressure had declined to 78 systolic. Decision made to perform cardioversion in the setting of hypotension. Informed consent was obtained. One attempt at cardioversion resulted in normal sinus rhythm with improved perfusion. Care was discussed with Dr. Jon who recommends amiodarone infusion be started. Patient's lab work does show elevated creatinine greater than 4. He has a normal potassium. Bedside ultrasound does show a moderate amount of urine in the bladder and Aldana catheter will be placed to alleviate any obstruction as well as monitor strict I's and O's. I did discuss patient's care with Dr. Ayala who has accepted admission to the hospital. His CBC is unremarkable. CT scan of the abdomen still pending to further evaluate his complaint of abdominal pain. Patient is currently feeling much better. Laboratory 09/15/18 09/15/18 09/15/18 07:07 07:07 07:07 WBC 13.6 H RBC 5.98 H Hgb 16.3 Hct 49.0 MCV 82 MCH 27.2 MCHC 33.3 RDW 16.9 H Plt Count 130 L Seg Neutrophils % 81.1 H Lymphocytes % 9.9 L Monocytes % 8.6 Eosinophils % 0.1 Basophils % 0.3 Absolute Neutrophils 11.1 H Absolute Lymphocytes 1.4 Absolute Monocytes 1.2 Absolute Eosinophils 0.0 Absolute Basophils 0.0 PT INR APTT Sodium 143.6 Potassium 3.9 Chloride 108 H Carbon Dioxide 23 Anion Gap 13 BUN 36 H Creatinine 4.22 H Est GFR ( Amer) 17 L Est GFR (Non-Af Amer) 14 L Glucose 174 H Calcium 9.9 Phosphorus Magnesium Total Bilirubin 2.3 H Direct Bilirubin 0.8 H Neonat Total Bilirubin Not Reportable Neonat Direct Bilirubin Not Reportable Neonat Indirect Bili Not Reportable AST 22 ALT 25 Alkaline Phosphatase 102 Troponin I 0.015 NT-Pro-B Natriuret Pep 239 Total Protein 8.4 H Albumin 4.5 Amylase Lipase 23.9 TSH Free T4 09/15/18 09/15/18 09/15/18 07:07 07:07 07:07 WBC RBC Hgb Hct MCV MCH MCHC RDW Plt Count Seg Neutrophils % Lymphocytes % Monocytes % Eosinophils % Basophils % Absolute Neutrophils Absolute Lymphocytes Absolute Monocytes Absolute Eosinophils Absolute Basophils PT 18.5 H INR 1.46 APTT 35.9 H Sodium Potassium Chloride Carbon Dioxide Anion Gap BUN Creatinine Est GFR ( Amer) Est GFR (Non-Af Amer) Glucose Calcium Phosphorus 4.1 Magnesium 2.3 Total Bilirubin Direct Bilirubin Neonat Total Bilirubin Neonat Direct Bilirubin Neonat Indirect Bili AST ALT Alkaline Phosphatase Troponin I NT-Pro-B Natriuret Pep Total Protein Albumin Amylase 94 Lipase Cancelled TSH 1.74 Free T4 1.28 Chest X-Ray 09/15/18 07:05 IMPRESSION: No acute disease. - Vital Signs Vital signs: Temp Pulse Resp BP Pulse Ox 99 F 103 H 27 H 98/74 L 91 L 09/15/18 06:27 09/15/18 06:27 09/15/18 08:52 09/15/18 08:51 09/15/18 08:52 - Laboratory Result Diagrams: 09/15/18 07:07 09/15/18 07:07 Laboratory results interpreted by me: 09/15/18 09/15/18 09/15/18 07:07 07:07 07:07 WBC 13.6 H RBC 5.98 H RDW 16.9 H Plt Count 130 L Seg Neutrophils % 81.1 H Lymphocytes % 9.9 L Absolute Neutrophils 11.1 H PT 18.5 H APTT 35.9 H Chloride 108 H BUN 36 H Creatinine 4.22 H Est GFR ( Amer) 17 L Est GFR (Non-Af Amer) 14 L Glucose 174 H Total Bilirubin 2.3 H Direct Bilirubin 0.8 H Total Protein 8.4 H - EKG Interpretation by Me Additional EKG results interpreted by me: 09/15/18 07:19 Interpreted by myself [id number]: Atrial fibrillation with RVR, rate 193, normal axis, LVH, PVCs 09/15/18 08:27 Interpreted by myself [id number]: Normal sinus rhythm, rate 91, left axis, LVH, no ST elevation Procedures - Additional Procedures Cardioversion/Defib Time performed: 08:20 Additional Procedures: Cardioversion/defib Notes: 09/15/18 08:28 Informed consent obtained in written form. All questions answered. Indication for procedure atrial fibrillation with RVR and hypotension. Patient placed on telemetry monitoring and defibrillation pads placed on the anterior chest and back. Patient given 200 mcg fentanyl. Blood pressure prior to cardioversion is 82 systolic and heart rate was 150 and irregularly irregular. Patient is awake and mentating. One attempt at 150 J was successful. Heart rate now 92 and normal sinus. Patient tolerated well with no immediate complications. Blood pressure improved to 113 systolic. No immediate complications. Critical Care Note - Critical Care Note Total time excluding time spent on procedures (mins): 60 Comments: Critical care time 60 exclusive from separate billable procedures for a patient requiring complex medical decision making, and high potential for clinical deterioration. Time spent obtaining history from patient or surrogate, discussions with consultants, development of treatment plan with patient or surrogate, evaluation of patient's response to treatment, examination of patient, ordering and performing treatments and interventions, ordering and review of laboratory studies, re-evaluation of patient's condition, ordering and review of radiographic studies and review of old charts Discharge - Discharge Clinical Impression: Atrial fibrillation with RVR Renal failure Qualifiers: Renal failure chronicity: acute Acute renal failure type: unspecified Qualified Code(s): N17.9 - Acute kidney failure, unspecified Abdominal pain Qualifiers: Abdominal location: generalized Qualified Code(s): R10.84 - Generalized abdominal pain Respiratory failure Qualifiers: Chronicity: acute Respiratory failure complication: hypoxia Qualified Code(s): J96.01 - Acute respiratory failure with hypoxia Condition: Stable Disposition: ADMITTED INPATIENT Unit Admitted: ICU
[2018-09-15 07:37] LABS: ALANINE AMINOTRANSFERASE 25 U/L (21-72); ALBUMIN 4.5 g/dL (3.5-5.0); ALKALINE PHOSPHATASE 102 U/L (38-126); ANION GAP 13 (5-19); ASPARTATE AMINO TRANSFERASE 22 U/L (17-59); BILIRUBIN,DIRECT 0.8 mg/dL (0.0-0.4); BILIRUBIN,TOTAL 2.3 mg/dL (0.2-1.3); BLOOD UREA NITROGEN 36 mg/dL (7-20); CALCIUM 9.9 mg/dL (8.4-10.2); CARBON DIOXIDE 23 mmol/L (22-30); CHLORIDE 108 mmol/L (98-107); GLUCOSE 174 mg/dL (75-110); LIPASE 23.9 U/L (23-300); POTASSIUM 3.9 mmol/L (3.6-5.0); SODIUM 143.6 mmol/L (137-145); TOTAL PROTEIN 8.4 g/dL (6.3-8.2)
[2018-09-15] MEDS ORDERED: DIGOXIN INJ 0.5 MG/2 ML AMPULE IV ONE (07:43)
[2018-09-15 07:49] LABS: TROPONIN I 0.015 ng/mL
--- NOTE | 2018-09-15 07:57 | RADIOLOGY REPORT (SQ) ---
Chest single view on 09/15/2018 at 7:29 AM CLINICAL INDICATION: Palpitations COMPARISON: 10/02/2017 FINDINGS: Technique and body habitus somewhat limits evaluation of the lungs. There is mild linear atelectasis or scarring in the right lower lung. The lungs are otherwise clear. Multilead left subclavian pacemaker is noted in place. Several overlying wires are noted. Heart is upper limits normal for size. Pulmonary vascularity is within normal limits. IMPRESSION: No acute disease.
[2018-09-15] MEDS ORDERED: FENTANYL CITRATE INJ/PF 100 MCG/2 ML AMPUL IV ONE ×3 (07:58→08:18)
[2018-09-15] MEDS ORDERED: ETOMIDATE INJ/PF 20 MG/10 ML SDV IV ONE (07:59)
[2018-09-15] MEDS ORDERED: NORMAL SALINE 1000 ML 1,000 ML IV PRN (08:28)
[2018-09-15] MEDS ORDERED: AMIODARONE HCL INJ 150 MG/3 ML VIAL IV ONE (08:40)
[2018-09-15] MEDS: DEXTROSE 5%-WATER 500 ML with AMIODARONE HCL 900 MG IV PRN ×2 (08:51)
[2018-09-15 09:06] LABS: INTERNATIONAL RATION (INR) 1.46; PROTHROMBIN TIME 18.5 SEC (11.4-15.4)
[2018-09-15 09:07] LABS: PARTIAL THROMBOPLASTIN TIME 35.9 SEC (23.5-35.8)
[2018-09-15 09:09] LABS: PHOSPHORUS 4.1 mg/dL (2.5-4.5)
[2018-09-15 09:26] LABS: FREE T4 (FREE THYROXINE) 1.28 ng/dL (0.78-2.19)
[2018-09-15 09:40] LABS: THYROID STIMULATING HORMONE 1.74 uIU/mL (0.47-4.68)
[2018-09-15 11:03] LABS: ARTERIAL BLOOD BASE EXCESS -1.5 mmol/L; ARTERIAL BLOOD FIO2 3L; ARTERIAL BLOOD H2CO3 1.54 mmol/L (1.05-1.35); ARTERIAL BLOOD HCO3 25.5 mmol/L (20-24); ARTERIAL BLOOD O2 SATURATION 89.2 % (94-98); ARTERIAL BLOOD PCO2 51.3 mmHg (35-45); ARTERIAL BLOOD PH 7.31 (7.35-7.45); ARTERIAL BLOOD PO2 61.3 mmHg (80-100); ARTERIAL BLOOD TOTAL CO2 27.1 mmol/L (23-27)
[2018-09-15 11:05] LABS: APPEARANCE,URINE CLOUDY; BILIRUBIN,URINE NEGATIVE (NEGATIVE); COLOR,URINE AMBER; GLUCOSE, URINE NEGATIVE (NEGATIVE); KETONES,URINE NEGATIVE (NEGATIVE); LEUKOCYTE ESTERASE,URINE NEGATIVE (NEGATIVE); NITRITE,URINE NEGATIVE (NEGATIVE); PROTEIN,URINE 30 mg/dL (NEGATIVE); URINE SPECIFIC GRAVITY 1.021
[2018-09-15 11:19] LABS: URINE AMPHETAMINES SCREEN NEGATIVE; URINE BARBITURATES SCREEN NEGATIVE; URINE BENZODIAZEPINES SCREEN NEGATIVE; URINE COCAINE SCREEN NEGATIVE; URINE MARIJUANA (THC) SCREEN NEGATIVE; URINE METHADONE SCREEN NEGATIVE; URINE PHENCYCLIDINE SCREEN NEGATIVE
--- NOTE | 2018-09-15 12:40 | RADIOLOGY REPORT (SQ) ---
EXAM DESCRIPTION: CT ABD/PELVIS NO ORAL OR IV COMPLETED DATE/TIME: 09/15/2018 10:59 am REASON FOR STUDY: abdominal pain COMPARISON: None. TECHNIQUE: CT scan of the abdomen and pelvis performed without intravenous or oral contrast. Images reviewed with lung, soft tissue, and bone windows. Reconstructed coronal and sagittal MPR images revi ewed. All images stored on PACS. All CT scanners at this facility use dose modulation, iterative reconstruction, and/or weight based d osing when appropriate to reduce radiation dose to as low as reasonably achievable (ALARA). [facility]: Dose Right [facility]: CareDose [facility]: Dose Right [facility]: Teradose 4D [facility]: Smart Rubysophic RADIATION DOSE: CT Rad equipment meets quality standard of care and radiation dose reduction techniq ues were employed. CTDIvol: 19.8 mGy. DLP: 1185 mGy-cm.mGy. LIMITATIONS: None. FINDINGS: LOWER CHEST: Subsegmental atelectasis in the right lower lobe. NON-CONTRASTED LIVER, SPLEEN, ADRENALS: Evaluation limited by lack of IV contrast. No identified sign ificant masses. PANCREAS: No masses. No peripancreatic inflammatory changes. GALLBLADDER: No identified stones by CT criteria. No inflammatory changes to suggest cholecystitis. RIGHT KIDNEY AND URETER: No suspicious masses. Assessment limited by lack of IV contrast. No signif icant calcifications. No hydronephrosis or hydroureter. LEFT KIDNEY AND URETER: No suspicious masses. Assessment limited by lack of IV contrast. No signifi cant calcifications. No hydronephrosis or hydroureter. AORTA AND RETROPERITONEUM: No aneurysm. No retroperitoneal masses or adenopathy. BOWEL AND PERITONEAL CAVITY: There is considerable fluid in the bowel. No bowel mass is seen. There is a focal area of stranding around the bowel just the left of the midline. See images 53 through 6 1. APPENDIX: Not identified. PELVIS, BLADDER, AND ABDOMINAL WALL:Urinary bladder is not filled. BONES: No significant findings. OTHER: No other significant finding. IMPRESSION: 1. There is a focal area of inflammatory changes associated with the bowel just to the left of the midline as described. Possible diverticulitis. 2. Considerable fluid is present in the bowel. Cannot exclude an enteritis. COMMENT: Quality ID # [id number]: Final reports with documentation of one or more dose reduction techniques (e.g., Automated exposure control, adjustment of the mA and/or kV according to patient size, use of iterative reconstruction technique) TECHNICAL DOCUMENTATION: JOB ID: [id number] [employer]- All Rights Reserved Reading location - IP/workstation name: [email or web address]
[2018-09-15] MEDS ORDERED: CEFTRIAXONE 1 GM/D5W RTU 1 GM/50 ML RTUPB IV SCH (13:30)
[2018-09-15] MEDS: ACETAMINOPHEN 325 MG TABLET PO PRN (13:32)
[2018-09-15 14:55] LABS: CREATINE KINASE MB 1.63 ng/mL (<4.55); TROPONIN I 0.021 ng/mL
[2018-09-15] MEDS: METRONIDAZOLE 500 MG/NS RTU 500 MG/100 ML RTUPB IV SCH ×2 (15:10→21:28)
[2018-09-15] MEDS ORDERED: FUROSEMIDE INJ/PF 40 MG/4 ML SDV IV ONE (15:45)
--- NOTE | 2018-09-15 17:04 | PDOC CONSULTATION ---
Consultation Consult Date: 09/15/18 Attending physician:: KANIKA JEFFERSON Consult reason:: I was asked by Dr. Jefferson to see the patient due to elevated creatinine. History of Present Illness Admission Date/PCP: 09/15/18 08:48 CARMEN GANT MD History of Present Illness: KRISH RAMOS JR is a 63 year old male with complicated cardiac history including history of atrial fibrillation, coronary artery disease, congestive heart failure, hypertension, hyperlipidemia, COPD, sleep apnea but not using CPAP, who presented to the emergency room because of abdominal pain and distention for 3 days. This was associated with decrease in appetite and upon arrival here in the emergency room some nausea and vomiting. While in the emergency room the patient developed atrial fibrillation with rapid ventricular response so he was started on Cardizem drip. However his blood pressure dropped to systolic blood pressure of 78 so Cardizem was discontinued and he underwent cardioversion. He converted to normal sinus rhythm and now currently on amiodarone drip. He was also noted to have a BUN of 36, creatinine of 4.22 with estimated GFR of 17. On November 30, 2017 he had a BUN of 16, creatinine 1.29 e stimated GFR 59. Bladder scan showed moderate amount of urine so [place] catheter was inserted as well. Abdominal CT scan without oral and IV contrast showed no hydronephrosis and possibility of diverticulitis and enteritis. His urinalysis only showed 30 protein with large blood and RBC greater than 182 which presumably is a catheterized urine specimen. Patient is currently on BiPAP when I saw him but is able to communicate although difficult to understand with the BiPAP. He said he has been short of breath since 's about 4 days ago and he has been having some leg swelling as well. He denies any chest pain. He denies problems with urination but noted some minimal blood in form in the urine. He denies any previously known kidney disease denies any hepatitis, denies any NSAID use or abuse and uses Tylenol only as needed. He has no recent cardiac catheterization. Past Medical History Cardiac Medical History: Reports: Atrial Fibrillation, Coronary Artery Disease, Hyperlipidemia, Myocardial Infarction, Peripheral Vascular Disease Pulmonary Medical History: Reports: Asthma, Bronchitis, Chronic Obstructive Pul monary Disease (COPD), Pneumonia - X2, Sleep Apnea - Previously used CPAP 2-3 years ago but has not been since Renal/ Medical History: Reports: Benign Prostatic Hyperplasia GI Medical History: Reports: Gastroesophageal Reflux Disease, Hiatal Hernia Musculoskeltal Medical History: Reports: Arthritis Psychiatric Medical History: Reports: Depression, Post Traumatic Stress Disorder, Schizoaffective Disorder Past Surgical History Past Surgical History: Reports: Herniorrhaphy, Pacemaker - Pacemaker defibrillator, Other - Penile procedure for erectile dysfunction Social History Information Source: Patient Lives with: Spouse/Significant other Smoking Status: Never Smoker Frequency of Alcohol Use: None Hx Recreational Drug Use: No Drugs: None Hx Prescription Drug Abuse: No Family History Family History: None, Arthritis - Parents, CAD - Father, CVA - Mother, Hypertension - Parents, Malignancy - Mother Parental Family History Reviewed: Yes Children Family History Reviewed: Yes Sibling(s) Family History Reviewed.: Yes Medication/Allergy Home Medications: Albuterol Sulfate [Proair HFA Inhalation Aerosol 8.5 gm MDI] 2 puff IH Q6HP PRN 10/02/17 Aripiprazole [Abilify 30 mg Tablet] 30 mg PO QHS 10/02/17 Budesonide/Formoterol Fumarate [Symbicort 160-4.5 Mcg Inhaler] 2 puff IH Q12 10/02/17 Clonazepam [Klonopin 1 mg Tablet] 1 mg PO Q12 10/02/17 Fluticasone Propionate [Flonase Nasal [place] 50 Mcg/[place] 16 gm] 1 spray NAREB BID 10/02/17 Lisinopril [Prinivil 10 mg Tablet] 40 mg PO DAILY 10/02/17 Metoprolol Tartrate [Lopressor 50 mg Tablet] 50 mg PO Q12 10/02/17 Amlodipine Besylate [Norvasc 10 mg Tablet] 10 mg PO DAILY 09/15/18 Atorvastatin Calcium [Lipitor 80 mg Tablet] 80 mg PO QHS 09/15/18 Benztropine Mesylate [Cogentin 1 mg Tablet] 1 mg PO Q12 09/15/18 Cyanocobalamin (Vitamin B-12) [Vitamin B-12 1000 Mcg Tablet] 1,000 mcg PO DAILY 09/15/18 Dofetilide [Tikosyn] 250 mcg PO Q12 09/15/18 Furosemide [Lasix 40 mg Tablet] 40 mg PO QAM 09/15/18 Isosorbide Mononitrate [Imdur 30 mg Tablet.er] 30 mg PO DAILY 09/15/18 Magnesium Oxide [Mag-Ox 400 mg Tablet] 400 mg PO DAILY 09/15/18 Omeprazole 20 mg PO BIDACBS 09/15/18 Paroxetine HCl [Paxil 20 mg Tablet] 20 mg PO DAILY 09/15/18 Rivaroxaban [Xarelto 10 mg Tablet] 10 mg PO WBRKFST 09/15/18 Tamsulosin HCl [Flomax 0.4 mg Cap.sr] 0.4 mg PO DAILY 09/15/18 Allergies/Adverse Reactions: latex [Latex] Allergy (Severe, Verified 11/15/17 11:14) WHITTAKER SKIN Review of Systems All systems: reviewed and no additional remarkable complaints except as stated Review of Systems: Constitutional: ABSENT: chills, fatigue, fever(s), headache(s), weight gain, weight loss Eyes: ABSENT: visual disturbances Ears: ABSENT: hearing changes Cardiovascular: ABSENT: chest pain, orthropnea, palpitations; admits dyspnea and edema Respiratory: ABSENT: cough, hemoptysis; admits dyspnea Gastrointestinal: ABSENT: Constipation, diarrhea, hematemesis, hematochezia; admits abdominal pain, distention, nausea, vomiting Genitourinary: ABSENT: dysuria, hematuria Musculoskeletal: ABSENT: joint swelling Integumentary: ABSENT: rash, wounds Neurological: ABSENT: abnormal gait, abnormal speech, confusion, dizziness, focal weakness, numbness, syncope Psychiatric: ABSENT: anxiety, depression Endocrine: ABSENT: cold intolerance, heat intolerance, polydipsia, polyuria Hematologic/Lymphatic: ABSENT: easy bleeding, easy bruising, lymphadenopathy Physical Exam Vital Signs: Temp Pulse Resp BP Pulse Ox 99 F 103 H 16 115/78 97 09/15/18 06:27 09/15/18 06:27 09/15/18 16:00 09/15/18 15:11 09/15/18 16:00 Intake & Output 09/14/18 09/15/18 09/16/18 06:59 06:59 06:59 Intake Total 724 Output Total 200 Balance 524 Weight 127.006 kg Exam: General appearance: Currently on BiPAP, well-developed, well-nourished Head exam: PRESENT: atraumatic, normocephalic Eye exam: PRESENT: Conjunctiva [place], EOMI, PERRLA. ABSENT: conjunctival injecti on, scleral icterus Mouth exam: PRESENT: moist, neck supple, tongue midline Neck exam: PRESENT: full ROM. ABSENT: carotid bruit, JVD, lymphadenopathy, thyromegaly Respiratory exam: PRESENT: Diminished to auscultation bilaterally. ABSENT: rales, rhonchi, stridor, wheezes Cardiovascular exam: PRESENT: RRR, +S1, +S2. ABSENT: systolic murmur Pulses: PRESENT: normal radial pulses, normal dorsalis pedis pulses GI/Abdominal exam: PRESENT: normal bowel sounds, abdomen is obese and distended with diffuse minimal tenderness ABSENT: guarding, mass Rectal exam: Deferred Extremities exam: PRESENT: full ROM. Minimal trace bilateral pitting edema ABSENT: calf tenderness Musculoskeletal: PRESENT: full ROM. ABSENT: deformity Neurological exam: PRESENT: alert, Awake, Oriented to person, Oriented to place, Oriented to time, reflexes normal, CN II-XII grossly intact. ABSENT: motor sensory deficit Psychiatric exam: PRESENT: appropriate affect, normal mood. ABSENT: homicidal ideation, suicidal ideation Skin exam: PRESENT: intact, dry, warm. ABSENT: rash Results Laboratory Results: 09/15/18 07:07 09/15/18 07:07 09/15/18 09/15/18 09/15/18 07:07 07:07 07:07 WBC 13.6 H RBC 5.98 H Hgb 16.3 Hct 49.0 MCV 82 MCH 27.2 MCHC 33.3 RDW 16.9 H Plt Count 130 L Seg Neutrophils % 81.1 H Lymphocytes % 9.9 L Monocytes % 8.6 Eosinophils % 0.1 Basophils % 0.3 Absolute Neutrophils 11.1 H Absolute Lymphocytes 1.4 Absolute Monocytes 1.2 Absolute Eosinophils 0.0 Absolute Basophils 0.0 Carbonic Acid HCO3/H2CO3 Ratio ABG pH ABG pCO2 ABG pO2 ABG HCO3 ABG O2 Saturation ABG Base Excess FiO2 Sodium 143.6 Potassium 3.9 Chloride 108 H Carbon Dioxide 23 Anion Gap 13 BUN 36 H Creatinine 4.22 H Est GFR ( Amer) 17 L Est GFR (Non-Af Amer) 14 L Glucose 174 H Calcium 9.9 Phosphorus 4.1 Magnesium 2.3 Total Bilirubin 2.3 H AST 22 ALT 25 Alkaline Phosphatase 102 Ammonia Total Protein 8.4 H Albumin 4.5 Amylase 94 Lipase 23.9 Cancelled TSH Free T4 Urine Color Urine Appearance Urine pH Ur Specific [place] Urine Protein Urine Glucose (UA) Urine Ketones Urine Blood Urine Nitrite Ur Leukocyte Esterase Urine WBC (Auto) Urine RBC (Auto) 09/15/18 09/15/18 09/15/18 07:07 10:07 10:07 WBC RBC Hgb Hct MCV MCH MCHC RDW Plt Count Seg Neutrophils % Lymphocytes % Monocytes % Eosinophils % Basophils % Absolute Neutrophils Absolute Lymphocytes Absolute Monocytes Absolute Eosinophils Absolute Basophils Carbonic Acid 1.54 H HCO3/H2CO3 Ratio 16:1 ABG pH 7.31 L ABG pCO2 51.3 H ABG pO2 61.3 L ABG HCO3 25.5 H ABG O2 Saturation 89.2 L ABG Base Excess -1.5 FiO2 3L Sodium Potassium Chloride Carbon Dioxide Anion Gap BUN Creatinine Est GFR ( Amer) Est GFR (Non-Af Amer) Glucose Calcium Phosphorus Magnesium Total Bilirubin AST ALT Alkaline Phosphatase Ammonia 20.8 Total Protein Albumin Amylase Lipase TSH 1.74 Free T4 1.28 Urine Color Urine Appearance Urine pH Ur Specific [place] Urine Protein Urine Glucose (UA) Urine Ketones Urine Blood Urine Nitrite Ur Leukocyte Esterase Urine WBC (Auto) Urine RBC (Auto) 09/15/18 10:19 WBC RBC Hgb Hct MCV MCH MCHC RDW Plt Count Seg Neutrophils % Lymphocytes % Monocytes % Eosinophils % Basophils % Absolute Neutrophils Absolute Lymphocytes Absolute Monocytes Absolute Eosinophils Absolute Basophils Carbonic Acid HCO3/H2CO3 Ratio ABG pH ABG pCO2 ABG pO2 ABG HCO3 ABG O2 Saturation ABG Base Excess FiO2 Sodium Potassium Chloride Carbon Dioxide Anion Gap BUN Creatinine Est GFR ( Amer) Est GFR (Non-Af Amer) Glucose Calcium Phosphorus Magnesium Total Bilirubin AST ALT Alkaline Phosphatase Ammonia Total Protein Albumin Amylase Lipase TSH Free T4 Urine Color JACKI Urine Appearance CLOUDY Urine pH 5.0 Ur Specific [place] 1.021 Urine Protein 30 H Urine Glucose (UA) NEGATIVE Urine Ketones NEGATIVE Urine Blood LARGE H Urine Nitrite NEGATIVE Ur Leukocyte Esterase NEGATIVE Urine WBC (Auto) 71 Urine RBC (Auto) >182 09/15/18 09/15/18 09/15/18 07:07 13:30 13:30 Creatine Kinase 261 H CK-MB (CK-2) 1.63 Troponin I 0.015 0.021 NT-Pro-B Natriuret Pep 239 11/30/17 15:10 BUN 16 Creatinine 1.45 H Est GFR ( Amer) 59 L Est GFR (Non-Af Amer) 49 L Impressions: Chest X-Ray 09/15/18 07:05 IMPRESSION: No acute disease. Abdomen/Pelvis CT 09/15/18 08:37 IMPRESSION: 1. There is a focal area of inflammatory changes associated with the bowel just to the left of the midline as described. Possible diverticulitis. 2. Considerable fluid is present in the bowel. Cannot exclude an enteritis. Assessment & Plan - Diagnosis (1) Acute kidney injury Is this a current diagnosis for this admission?: Yes Plan: Likely started to have prerenal azotemia which is possibly developing into acute tubular necrosis due to her circumstances stated above. Patient likely have some volume depletion with poor oral intake due to abdominal symptoms. De velopment of atrial fibrillation with rapid ventricular response and transient hypotension could precipitate in ATN. Currently there is no urgent indication for any renal replacement therapy but patient needs to be monitored very closely. Avoid nephrotoxic medications and adjust doses of medications depending on kidney function. Continue some IV fluid hydration. I asked the patient if he would allow her consent for dialysis treatment if needed and he said yes. (2) Abdominal pain Qualifiers: Abdominal location: generalized Qualified Code(s): R10.84 - Generalized abdominal pain Is this a current diagnosis for this admission?: Yes Plan: CT scan showed possibility of diverticulitis. (3) Atrial fibrillation Qualifiers: Atrial fibrillation type: unspecified Qualified Code(s): I48.91 - Unspeci fied atrial fibrillation Is this a current diagnosis for this admission?: Yes Plan: Initially with rapid ventricular response, status post cardioversion and currently on amiodarone. (4) CAD (coronary artery disease) Qualifiers: Coronary Disease-Associated Artery/Lesion type: [place] artery [place] vs. transplanted heart: [place] heart Associated angina: without angina Qualified Code(s): I25.10 - Atherosclerotic heart disease of [place] coronary artery without angina pectoris Is this a current diagnosis for this admission?: Yes (5) Respiratory failure Qualifiers: Chronicity: acute Respiratory failure complication: hypoxia Qualified Code(s): J96.01 - Acute respiratory failure with hypoxia Is this a current diagnosis for this admission?: Yes Plan: Requiring BiPAP. - Notes Notes: Thank you very much for this consultation. - Time Time Spent: Greater than 70 Minutes
--- NOTE | 2018-09-15 18:23 | RADIOLOGY REPORT (SQ) ---
EXAM DESCRIPTION: [employer] COMPLETED DATE/TIME: 09/15/2018 6:06 pm REASON FOR STUDY: acute kidney injury COMPARISON: None. TECHNIQUE: Dynamic and static grayscale images acquired of the kidneys and bladder and recorded on P ACS. Additional selected color Doppler and spectral images recorded. LIMITATIONS: None. FINDINGS: RIGHT KIDNEY: Normal size measuring 12.7 cm. Normal echogenicity. No solid or suspici ous masses. No hydronephrosis. No calcifications. LEFT KIDNEY: Normal size measuring 11.3 cm. Normal echogenicity. No solid or suspicious masses. No hydronephrosis. No calcifications. BLADDER: Not imaged. OTHER FINDINGS: No other significant finding. IMPRESSION: No evidence hydronephrosis. TECHNICAL DOCUMENTATION: JOB ID: [id number] [employer]- All Rights Reserved Reading location - IP/workstation name: [email or web address]
--- NOTE | 2018-09-15 20:00 | EKG REPORT ---
SEVERITY:- ABNORMAL ECG - PROBABLE LVH WITH SECONDARY REPOL ABNRM ATRIAL FIBRILLATION WITH RAPID V-RATE : Confirmed by: Ana Jon MD 15-Sep-2018 20:00:10
--- NOTE | 2018-09-15 20:00 | EKG REPORT ---
SEVERITY:- ABNORMAL ECG - SINUS RHYTHM LEFT AXIS DEVIATION LEFT VENTRICULAR HYPERTROPHY : Confirmed by: Ana Jon MD 15-Sep-2018 19:59:44
[2018-09-15 21:18] LABS: CREATINE KINASE MB 6.56 ng/mL (<4.55); TROPONIN I 0.022 ng/mL
--- NOTE | 2018-09-15 21:20 | PDOC H&P ---
History of Present Illness Admission Date/PCP: 09/15/18 08:48 CARMEN GANT MD History of Present Illness: KRISH RAMOS JR is a 63 year old male, He has a history of paroxysmal a trial fibrillation, hypertension, nonobstructive coronary artery disease, history of obstructive sleep apnea he came to the emergency room for evaluation of abdominal pain, in the emergency room he apparently developed atrial fibrillation with rapid ventricular response with associated hypotension he apparently was cardioverted in the emergency room and subsequently started on amiodarone drip. A CT scan of the abdomen and pelvis was done without contrast was done in the emergency room ,CT scan demonstrated a focal area of inflammatory changes in the bowel that was consistent with diverticulitis he was also found to have elevated serum creatinine, that suggest acute kidney injury but there is no indication for immediate kidney replacement therapy, there was no acidosis, no hyperkalemia, nephrology was consulted by the ED physician.Patient have multiple comorbid conditions, is very obese with abdominal fat Past Medical History Cardiac Medical History: Reports: Atrial Fibrillation, Congestive Heart Failure, Coronary Artery Disease, Myocardial Infarction, Hyperlipidema, Hypertension, Peripheral Vascular Disease Pulmonary Medical History: Reports: Asthma, Bronchitis, Chronic Obstructive Pulmonary Disease (COPD), Pneumonia - X2, Sleep Apnea - Previously used CPAP 2-3 years ago but has not been since Endocrine Medical History: Reports: Diabetes Mellitus Type 2 GI Medical History: Reports: Gastroesophageal Reflux Disease, Hiatal Hernia Musculoskeltal Medical History: Reports: Arthritis Psychiatric Medical History: Reports: Depression, Post Traumatic Stress Disorder, Schizoaffective Disorder Hematology: Reports: Anemia - ON IRON PILLS Past Surgical History Past Surgical History: Reports: Herniorrhaphy, Pacemaker - Pacemaker defibrillator, Other - Penile procedure for erectile dysfunction Social History Lives with: Spouse/Significant other Smoking Status: Never Smoker Frequency of Alcohol Use: None Hx Recreational Drug Use: No Drugs: None Hx Prescription Drug Abuse: No Family History Family History: Arthritis, CAD, CVA, DM, Hyperlipidemia, Hypertension, Malignancy Parental Family History Reviewed: Yes Children Family History Reviewed: Yes Sibling(s) Family History Reviewed.: Yes Medication/Allergy Home Medications: Albuterol Sulfate [Proair HFA Inhalation Aerosol 8.5 gm MDI] 2 puff IH Q6HP PRN 10/02/17 Aripiprazole [Abilify 30 mg Tablet] 30 mg PO QHS 10/02/17 Budesonide/Formoterol Fumarate [Symbicort 160-4.5 Mcg Inhaler] 2 puff IH Q12 10/02/17 Clonazepam [Klonopin 1 mg Tablet] 1 mg PO Q12 10/02/17 Fluticasone Propionate [Flonase Nasal [place] 50 Mcg/[place] 16 gm] 1 spray NAREB BID 10/02/17 Lisinopril [Prinivil 10 mg Tablet] 40 mg PO DAILY 10/02/17 Metoprolol Tartrate [Lopressor 50 mg Tablet] 50 mg PO Q12 10/02/17 Amlodipine Besylate [Norvasc 10 mg Tablet] 10 mg PO DAILY 09/15/18 Atorvastatin Calcium [Lipitor 80 mg Tablet] 80 mg PO QHS 09/15/18 Benztropine Mesylate [Cogentin 1 mg Tablet] 1 mg PO Q12 09/15/18 Cyanocobalamin (Vitamin B-12) [Vitamin B-12 1000 Mcg Tablet] 1,000 mcg PO DAILY 09/15/18 Dofetilide [Tikosyn] 250 mcg PO Q12 09/15/18 Furosemide [Lasix 40 mg Tablet] 40 mg PO QAM 09/15/18 Isosorbide Mononitrate [Imdur 30 mg Tablet.er] 30 mg PO DAILY 09/15/18 Magnesium Oxide [Mag-Ox 400 mg Tablet] 400 mg PO DAILY 09/15/18 Omeprazole 20 mg PO BIDACBS 09/15/18 Paroxetine HCl [Paxil 20 mg Tablet] 20 mg PO DAILY 09/15/18 Rivaroxaban [Xarelto 10 mg Tablet] 10 mg PO WBRKFST 09/15/18 Tamsulosin HCl [Flomax 0.4 mg Cap.sr] 0.4 mg PO DAILY 09/15/18 Allergies/Adverse Reactions: latex [Latex] Allergy (Severe, Verified 11/15/17 11:14) WHITTAKER SKIN Review of Systems Constitutional: ABSENT: chills, fever(s), headache(s), weight gain, weight loss Eyes: ABSENT: visual disturbances Ears: ABSENT: hearing changes Cardiovascular: PRESENT: palpitations. ABSENT: chest pain, dyspnea on exertion, edema, orthropnea Respiratory: ABSENT: cough, hemoptysis Gastrointestinal: PRESENT: abdominal pain. ABSENT: constipation, diarrhea, hematemesis, hematochezia, nausea, vomiting Genitourinary: ABSENT: dysuria, hematuria Musculoskeletal: ABSENT: joint swelling Integumentary: ABSENT: rash, wounds Neurological: ABSENT: abnormal gait, abnormal speech, confusion, dizziness, focal weakness, syncope Psychiatric: ABSENT: anxiety, depression, homidical ideation, suicidal ideation Endocrine: ABSENT: cold intolerance, heat intolerance, menstrual abnormalities, polydipsia, polyuria Hematologic/Lymphatic: ABSENT: easy bleeding, easy bruising, lymphadenopathy Physical Exam Vital Signs: Temp Pulse Resp BP Pulse Ox 98.3 F 84 26 H 127/74 H 96 09/15/18 19:34 09/15/18 19:34 09/15/18 19:34 09/15/18 19:34 09/15/18 19:34 Intake & Output 09/14/18 09/15/18 09/16/18 06:59 06:59 06:59 Intake Total 824 Output Total 200 Balance 624 Weight 127.006 kg General appearance: PRESENT: severe distress Head exam: PRESENT: atraumatic, normocephalic Eye exam: PRESENT: conjunctiva pink, EOMI, PERRLA Ear exam: PRESENT: normal external ear exam Mouth exam: PRESENT: moist, tongue midline Neck exam: PRESENT: full ROM Respiratory exam: PRESENT: clear to auscultation [place] Cardiovascular exam: PRESENT: irregular rhythm, +S1, +S2 Pulses: PRESENT: normal dorsalis pedis pul, +2 pedal pulses bilateral Vascular exam: PRESENT: normal capillary refill GI/Abdominal exam: PRESENT: distended, normal bowel sounds, soft Rectal exam: PRESENT: deferred Neurological exam: PRESENT: alert, awake, oriented to person, oriented to place, oriented to time, oriented to situation, CN II-XII grossly intact Psychiatric exam: PRESENT: appropriate affect, normal mood Skin exam: PRESENT: dry, intact, warm Results Laboratory Results: 09/15/18 07:07 09/15/18 07:07 09/15/18 09/15/18 09/15/18 07:07 07:07 07:07 WBC 13.6 H RBC 5.98 H Hgb 16.3 Hct 49.0 MCV 82 MCH 27.2 MCHC 33.3 RDW 16.9 H Plt Count 130 L Seg Neutrophils % 81.1 H Lymphocytes % 9.9 L Monocytes % 8.6 Eosinophils % 0.1 Basophils % 0.3 Absolute Neutrophils 11.1 H Absolute Lymphocytes 1.4 Absolute Monocytes 1.2 Absolute Eosinophils 0.0 Absolute Basophils 0.0 Carbonic Acid HCO3/H2CO3 Ratio ABG pH ABG pCO2 ABG pO2 ABG HCO3 ABG O2 Saturation ABG Base Excess FiO2 Sodium 143.6 Potassium 3.9 Chloride 108 H Carbon Dioxide 23 Anion Gap 13 BUN 36 H Creatinine 4.22 H Est GFR ( Amer) 17 L Est GFR (Non-Af Amer) 14 L Glucose 174 H Calcium 9.9 Phosphorus 4.1 Magnesium 2.3 Total Bilirubin 2.3 H AST 22 ALT 25 Alkaline Phosphatase 102 Ammonia Total Protein 8.4 H Albumin 4.5 Amylase 94 Lipase 23.9 Cancelled TSH Free T4 Urine Color Urine Appearance Urine pH Ur Specific [place] Urine Protein Urine Glucose (UA) Urine Ketones Urine Blood Urine Nitrite Ur Leukocyte Esterase Urine WBC (Auto) Urine RBC (Auto) 09/15/18 09/15/18 09/15/18 07:07 10:07 10:07 WBC RBC Hgb Hct MCV MCH MCHC RDW Plt Count Seg Neutrophils % Lymphocytes % Monocytes % Eosinophils % Basophils % Absolute Neutrophils Absolute Lymphocytes Absolute Monocytes Absolute Eosinophils Absolute Basophils Carbonic Acid 1.54 H HCO3/H2CO3 Ratio 16:1 ABG pH 7.31 L ABG pCO2 51.3 H ABG pO2 61.3 L ABG HCO3 25.5 H ABG O2 Saturation 89.2 L ABG Base Excess -1.5 FiO2 3L Sodium Potassium Chloride Carbon Dioxide Anion Gap BUN Creatinine Est GFR ( Amer) Est GFR (Non-Af Amer) Glucose Calcium Phosphorus Magnesium Total Bilirubin AST ALT Alkaline Phosphatase Ammonia 20.8 Total Protein Albumin Amylase Lipase TSH 1.74 Free T4 1.28 Urine Color Urine Appearance Urine pH Ur Specific [place] Urine Protein Urine Glucose (UA) Urine Ketones Urine Blood Urine Nitrite Ur Leukocyte Esterase Urine WBC (Auto) Urine RBC (Auto) 09/15/18 10:19 WBC RBC Hgb Hct MCV MCH MCHC RDW Plt Count Seg Neutrophils % Lymphocytes % Monocytes % Eosinophils % Basophils % Absolute Neutrophils Absolute Lymphocytes Absolute Monocytes Absolute Eosinophils Absolute Basophils Carbonic Acid HCO3/H2CO3 Ratio ABG pH ABG pCO2 ABG pO2 ABG HCO3 ABG O2 Saturation ABG Base Excess FiO2 Sodium Potassium Chloride Carbon Dioxide Anion Gap BUN Creatinine Est GFR ( Amer) Est GFR (Non-Af Amer) Glucose Calcium Phosphorus Magnesium Total Bilirubin AST ALT Alkaline Phosphatase Ammonia Total Protein Albumin Amylase Lipase TSH Free T4 Urine Color JACKI Urine Appearance CLOUDY Urine pH 5.0 Ur Specific [place] 1.021 Urine Protein 30 H Urine Glucose (UA) NEGATIVE Urine Ketones NEGATIVE Urine Blood LARGE H Urine Nitrite NEGATIVE Ur Leukocyte Esterase NEGATIVE Urine WBC (Auto) 71 Urine RBC (Auto) >182 09/15/18 09/15/18 09/15/18 07:07 13:30 13:30 Creatine Kinase 261 H CK-MB (CK-2) 1.63 Troponin I 0.015 0.021 NT-Pro-B Natriuret Pep 239 09/15/18 20:35 Creatine Kinase 855 H CK-MB (CK-2) Troponin I NT-Pro-B Natriuret Pep Impressions: Renal Ultrasound 09/15/18 00:00 IMPRESSION: No evidence hydronephrosis. Chest X-Ray 09/15/18 07:05 IMPRESSION: No acute disease. Abdomen/Pelvis CT 09/15/18 08:37 IMPRESSION: 1. There is a focal area of inflammatory changes associated with the bowel just to the left of the midline as described. Possible diverticulitis. 2. Considerable fluid is present in the bowel. Cannot exclude an enteritis. Assessment & Plan - Diagnosis (1) Acute kidney injury Is this a current diagnosis for this admission?: Yes Plan: The etiology of the acute kidney injury is most likely multifactorial, prerenal, hypotension probably ATN, patient will be vigorously hydrated with fluid (2) Acute diverticulitis Is this a current diagnosis for this admission?: Yes Plan: Start Flagyl and IV Rocephin (3) Atrial fibrillation with RVR Is this a current diagnosis for this admission?: Yes Plan: He has a history of A. fib (4) Morbid obesity due to excess calories Is this a current diagnosis for this admission?: Yes
[2018-09-15] MEDS: NORMAL SALINE 1000 ML 1,000 ML IV PRN (21:29)
--- NOTE | 2018-09-16 00:08 | PDOC CONSULTATION ---
Consultation-Blank Consultation: CARDIOLOGY CONSULTATION by Dr. Ana Jon on 09/15/2018. Patient seen at 4:30 PM on 09/15/2018. REASON FOR workup patient with atrial fibrillation with rapid ventricular response and hypotension. HISTORY OF PRESENT ILLNESS: Afro-[place]ian male with known history of paroxysmal atrial fibrillation, hypertension, coronary artery disease, remote history of PA, history of congestive heart failure, and history of sleep apnea but does not use CPAP admitted with 3 days of abdominal distention and severe abdominal pain. In the emergency room the patient developed atrial fibrillation with rapid ventricular response and was also hypotensive. In view of the hypotension the ER physician called me to come to cardiovert the patient. Since the patient was hypotensive I advised the ER physician to do the cardioversion herself since his take at least 15-30 minutes for me to show. The patient as per the ER patient was successfully cardioverted, and subsequently based on amiodarone drip after bolus. At present the patient in sinus rhythm. He was also found to have acute renal failure. He also has most likely inflammation of the part of the bowel possibly diverticulitis. He denies any chest pain or discomfort. There is no PND or orthopnea. The patient states he also has a little cough with some symptoms suggestive of acute exacerbation of COPD. He there was some wheezing and some cough. Of yellowish sputum. There is no definite leg edema. There is no recent firing of his AICD. PAST MEDICAL HISTORY: History of coronary artery disease. History of remote myocardial infarction. No anginal symptoms in a long time. History of hypertension present. History of excessive atrial fibrillation. The patient states he is on Xarelto at home. He has a past history of CVA with the dysarthria. He denies any history of diabetes mellitus or thyroid disease. He also has a history of asthma and history of COPD. He has had pneumonia x2 in the past. He also has deep apnea but is not compliant with CPAP. There is no history of chronic kidney disease. Patient has acute renal failure at present. He has a history of arthritis. He has a history of congestive heart failure. And possibly cardiomyopathy. He has a past history of ventricular tachycardia, and history of AICD placement. 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 PAST SURGICAL HISTORY: He has had herniorrhaphy and he is also has a history of pacemaker/defibrillator. Family history positive for history of CAD in father arthritis and history of CVA hypertension. Also his mother had malignancy. SOCIAL HISTORY: He has never smoked. There is alcohol abuse. allergies: The patient is allergic to latex. DISPOSITION: The patient is a full code. His is his surrogate healthcare decision maker Review SYSTEMS: CONSTITUTIONAL: Denies any fever chills or rigors. Complains of generalized fatigue and weakness. HEAD: Denies headaches or head injury. EYES: No history of amblyopia diplopia. No history of amaurosis fugax. NOSE: No history of hayfever. No history of nosebleeds. EARS: No history of hearing loss. No history of tinnitus. MOUTH: No history of altered taste sensation. No ulcers in the mouth. THROAT: No history of odynophagia or dysphagia. No recurrent sore throats. SKIN: No history of pruritus. No history of eczema. No history of yellowish discoloration of the skin. NECK: Denies neck pain or swelling in the neck. LUNGS: History of asthma and COPD. Recent symptoms of wheezing and some symptoms symptoms suggestive of acute exacerbation COPD, with productive cough of yellowish sputum. No chest pain. No hemoptysis no history of pulmonary embolism. History of sleep apnea does not use CPAP. HEART: History of coronary artery disease, history of remote myocardial infarction. No history of anginal symptoms. History of hypertension present history of congestive heart failure. History of AICD placement present. Does have a history of cardiomyopathy. History of proximal atrial fibrillation. Patient admitted with atrial fibrillation with rapid ventricular response and hypotension. RENAL: No symptoms a UTI. No history of hematuria pyuria or dysuria. Patient admitted with acute renal failure. MUSCULOSKELETAL: History of arthritis present. No history of collagen vascular disease. ENDOCRINE: No history of diabetes mellitus or thyroid disease. No history of polydipsia or polyuria. No history of heat or cold intolerance. GI: Patient with abdominal pain does have constipation also abdominal distention. CT scan of the abdomen without contrast suggest enteritis and possibly diverticulitis. No history of G I bleed. History of GERD present. ORTHOPEDICS NURSE: Past history of CVA with dysarthria. No recurrence of CVA. No history of headaches migraines or seizures. PSYCHIATRIC: Patient has a history of posttraumatic stress disorder. History of depression. He also has a history of/affective disorder. The patient has no homicidal ideation no suicidal ideation. VASCULAR: No history of calf or buttock claudication. No history of DVT. HEMATOLOGICAL: No history of bleeding diathesis no history of clotting disorders. Physical EXAMINATION: The patient is morbidly obese. At present in sinus rhythm, and in no acute distress. He is well-groomed Selected Entries 09/15/18 09/15/18 09/15/18 16:54 17:01 19:34 Core 101.5 F H Temperature Heart Rate ( 88 Monitors) Respiratory 21 H Rate Blood Pressure 110/80 Blood Pressure 90 Mean O2 Sat by Pulse 93 96 Oximetry Earlier in the emergency room the patient was on BiPAP. At present the patient on nasal cannula oxygen at 3 L/min. HEAD: Is atraumatic normocephalic. EYES: Pupils are equal round regular reactive light accommodation. Extraocular movements are normal. There is no conjunctival pallor. There is no scleral icterus. EARS: Tympanic memories are intact. External auditory canals are clear. NOSE: There is no deviated nasal septum. There is no inflammation of the nasal mucous membrane. MOUTH: Mucous membranes of mouth are moist. Tongue is moist. There is no ulcers there is no bleeding from the gums. Throat: There is no redness of the oropharynx. There is no exudates. SKIN: There is no skin rashes or skin lesions. There is no petechia or ecchymosis. NECK: Supple. There is no JVD. Carotids are equal there is no bruit. There is no accessory muscles of respiration use. Trachea central. LUNGS: There is diminished air entry prolonged expiration. There is a few scattered rhonchi. There is no wheezing or rales. On percussion there is hyperresonance. On palpation there is no chest wall tenderness. HEART: S1-S2 is heard S1 is of normal intensity. There is no S3 gallop there is no S4 gallop. There is systolic murmur left sternal border and the apex there is no rub. ABDOMEN: Is soft. There is mild discomfort on operating the abdomen. There is mild abdominal distention. Bowel sounds are slightly diminished. There is no rebound guarding or rigidity extremities: Femorals are diminished there is no femoral bruits. Leg pulses are diminished. THERE IS NO PEDAL EDEMA. THERE IS NO DVT OR CELLULITIS. THERE IS NO CALF TENDERNESS. ORTHOPEDICS NURSE: The patient is conscious awake alert oriented x3 with no focal deficits. The patient has dysarthria. PSYCHIATRIC: At present the patient judgment insight are intact his affect is normal... There is no hepatosplenic megaly. Bowel sounds are well heard. Current Medications Generic Name Dose Route Start Last Admin Trade Name Freq PRN Reason Stop Dose Admin Acetaminophen 650 mg 09/15/18 13:22 09/15/18 13:32 Tylenol 325 Mg Tablet PO 10/15/18 13:21 650 mg Q4HP PRN Administration FEVER >101 Diltiazem HCl 125 mg in 125 mls @ 0 mls/hr 09/15/18 07:06 09/15/18 08:53 Cardizem Rtu Inj 125 Mg-D5w 125 Ml Premix IV 10/15/18 07:05 Infused CONTINUOUS PRN Titration THIS MED IS NOT "PRN" Protocol Titrate Amiodarone HCl 900 mg/ 500 mls @ 0 mls/hr 09/15/18 08:22 09/15/18 15:18 Dextrose IV 09/18/18 08:21 0.49 mg/min CONTINUOUS PRN 16.66 mls/hr THIS MED IS NOT "PRN" Titration Protocol Per Protocol Metronidazole 500 mg in 100 mls @ 100 mls/hr 09/15/18 15:00 09/15/18 22:40 Flagyl Rtu 500 Mg/Ns 100ml Premix IV 09/22/18 14:59 Infused Q6A LILI Infusion Ceftriaxone Sodium 1,000 mg/ 50 mls @ 100 mls/hr 09/16/18 16:00 Dextrose IV 09/23/18 15:59 DAILY LILI Sodium Chloride 1,000 mls @ 150 mls/hr 09/15/18 15:45 09/15/18 21:29 Nacl 0.9% 1000 Ml Iv Soln IV 10/15/18 08:27 150 mls/hr CONTINUOUS PRN Administration THIS MED IS NOT "PRN" Discontinued Medications Generic Name Dose Route Start Last Admin Trade Name Freq PRN Reason Stop Dose Admin Amiodarone HCl Confirm 09/15/18 08:40 09/15/18 08:52 Cordarone Inj 150 Mg/3 Ml Vial Administered 09/15/18 08:41 Not Given Dose 150 mg IV .STK-MED ONE Digoxin 0.25 mg 09/15/18 07:43 09/15/18 08:53 Lanoxin Inj 0.5 Mg/2 Ml Ampule IV 09/15/18 07:44 Not Given NOW ONE Diltiazem HCl Confirm 09/15/18 07:03 09/15/18 07:38 Cardizem Inj 25 Mg/5 Ml Vial Administered 09/15/18 07:04 Not Given Dose 25 mg .ROUTE .STK-MED ONE Diltiazem HCl 10 mg 09/15/18 07:06 09/15/18 07:07 Cardizem Inj 25 Mg/5 Ml Vial IV 09/15/18 07:07 10 mg NOW ONE Administration Diltiazem HCl 10 mg 09/15/18 07:10 09/15/18 07:12 Cardizem Inj 25 Mg/5 Ml Vial IV 09/15/18 07:11 10 mg NOW ONE Administration Diltiazem HCl 5 mg 09/15/18 07:15 09/15/18 07:15 Cardizem Inj 25 Mg/5 Ml Vial IV 09/15/18 07:16 5 mg NOW ONE Administration Etomidate 10 mg 09/15/18 07:59 09/15/18 08:53 Amidate Inj/Pf 20 Mg/10 Ml Sdv IV 09/15/18 08:00 Not Given NOW ONE Fentanyl Citrate 150 mcg 09/15/18 07:58 09/15/18 08:14 Sublimaze Inj/Pf 100 Mcg/2 Ml Ampule IV 09/15/18 07:59 150 mcg NOW ONE Administration Fentanyl Citrate 50 mcg 09/15/18 08:15 09/15/18 08:16 Sublimaze Inj/Pf 100 Mcg/2 Ml Ampule IV 09/15/18 08:16 50 mcg NOW ONE Administration Fentanyl Citrate 50 mcg 09/15/18 08:18 09/15/18 08:36 Sublimaze Inj/Pf 100 Mcg/2 Ml Ampule IV 09/15/18 08:19 Not Given NOW ONE Furosemide 40 mg 09/15/18 15:45 09/15/18 15:53 Lasix Inj/Pf 40 Mg/4 Ml Sdv IV 09/15/18 15:46 40 mg NOW ONE Administration Sodium Chloride 500 mls @ 0 mls/hr 09/15/18 07:06 09/15/18 08:54 Nacl 0.9% 1000 Ml Iv Soln IV 09/15/18 07:07 Infused BOLUS ONE Infusion Wide Open Diltiazem HCl Confirm 09/15/18 07:05 09/15/18 07:38 Cardizem Rtu Inj 125 Mg-D5w 125 Ml Premix Administered 09/15/18 07:06 Not Given Dose 125 mg in 125 mls @ ud IV .STK-MED ONE Sodium Chloride 1,000 mls @ 100 mls/hr 09/15/18 08:28 09/15/18 21:29 Nacl 0.9% 1000 Ml Iv Soln IV 10/15/18 08:27 Infused CONTINUOUS PRN Infusion THIS MED IS NOT "PRN" Albuterol Sulfate [Proair HFA Inhalation Aerosol 8.5 gm MDI] 2 puff IH Q6HP PRN 10/02/17 Aripiprazole [Abilify 30 mg Tablet] 30 mg PO QHS 10/02/17 Budesonide/Formoterol Fumarate [Symbicort 160-4.5 Mcg Inhaler] 2 puff IH Q12 10/02/17 Clonazepam [Klonopin 1 mg Tablet] 1 mg PO Q12 10/02/17 Fluticasone Propionate [Flonase Nasal [place] 50 Mcg/[place] 16 gm] 1 spray NAREB BID 10/02/17 Lisinopril [Prinivil 10 mg Tablet] 40 mg PO DAILY 10/02/17 Metoprolol Tartrate [Lopressor 50 mg Tablet] 50 mg PO Q12 10/02/17 Amlodipine Besylate [Norvasc 10 mg Tablet] 10 mg PO DAILY 09/15/18 Atorvastatin Calcium [Lipitor 80 mg Tablet] 80 mg PO QHS 09/15/18 Benztropine Mesylate [Cogentin 1 mg Tablet] 1 mg PO Q12 09/15/18 Cyanocobalamin (Vitamin B-12) [Vitamin B-12 1000 Mcg Tablet] 1,000 mcg PO DAILY 09/15/18 Dofetilide [Tikosyn] 250 mcg PO Q12 09/15/18 Furosemide [Lasix 40 mg Tablet] 40 mg PO QAM 09/15/18 Isosorbide Mononitrate [Imdur 30 mg Tablet.er] 30 mg PO DAILY 09/15/18 Magnesium Oxide [Mag-Ox 400 mg Tablet] 400 mg PO DAILY 09/15/18 Omeprazole 20 mg PO BIDACBS 09/15/18 Paroxetine HCl [Paxil 20 mg Tablet] 20 mg PO DAILY 09/15/18 Rivaroxaban [Xarelto 10 mg Tablet] 10 mg PO [id number] 09/15/18 Tamsulosin HCl [Flomax 0.4 mg Cap.sr] 0.4 mg PO DAILY 09/15/18 Labs- All tests 24 hr 09/15/18 09/15/18 09/15/18 07:07 07:07 07:07 WBC 13.6 H RBC 5.98 H Hgb 16.3 Hct 49.0 MCV 82 MCH 27.2 MCHC 33.3 RDW 16.9 H Plt Count 130 L Seg Neutrophils % 81.1 H Lymphocytes % 9.9 L Monocytes % 8.6 Eosinophils % 0.1 Basophils % 0.3 Absolute Neutrophils 11.1 H Absolute Lymphocytes 1.4 Absolute Monocytes 1.2 Absolute Eosinophils 0.0 Absolute Basophils 0.0 PT INR APTT Carbonic Acid HCO3/H2CO3 Ratio ABG pH ABG pCO2 ABG pO2 ABG HCO3 ABG Total CO2 ABG O2 Saturation ABG Base Excess FiO2 Sodium 143.6 Potassium 3.9 Chloride 108 H Carbon Dioxide 23 Anion Gap 13 BUN 36 H Creatinine 4.22 H Est GFR ( Amer) 17 L Est GFR (Non-Af Amer) 14 L Glucose 174 H Calcium 9.9 Phosphorus Magnesium Total Bilirubin 2.3 H Direct Bilirubin 0.8 H Neonat Total Bilirubin Not Reportable Neonat Direct Bilirubin Not Reportable Neonat Indirect Bili Not Reportable AST 22 ALT 25 Alkaline Phosphatase 102 Ammonia Creatine Kinase CK-MB (CK-2) Troponin I 0.015 NT-Pro-B Natriuret Pep 239 Total Protein 8.4 H Albumin 4.5 Amylase Lipase 23.9 TSH Free T4 Urine Color Urine Appearance Urine pH Ur Specific Luna Urine Protein Urine Glucose (UA) Urine Ketones Urine Blood Urine Nitrite Urine Bilirubin Urine Urobilinogen Ur Leukocyte Esterase Urine WBC (Auto) Urine RBC (Auto) U Hyaline Cast (Auto) Squamous Epi Cells Auto Urine Mucus (Auto) Urine Ascorbic Acid Urine Opiates Screen Urine Methadone Screen Ur Barbiturates Screen Ur Phencyclidine Scrn Ur Amphetamines Screen U Benzodiazepines Scrn Urine Cocaine Screen U Marijuana (THC) Screen 09/15/18 09/15/18 09/15/18 07:07 07:07 07:07 WBC RBC Hgb Hct MCV MCH MCHC RDW Plt Count Seg Neutrophils % Lymphocytes % Monocytes % Eosinophils % Basophils % Absolute Neutrophils Absolute Lymphocytes Absolute Monocytes Absolute Eosinophils Absolute Basophils PT 18.5 H INR 1.46 APTT 35.9 H Carbonic Acid HCO3/H2CO3 Ratio ABG pH ABG pCO2 ABG pO2 ABG HCO3 ABG Total CO2 ABG O2 Saturation ABG Base Excess FiO2 Sodium Potassium Chloride Carbon Dioxide Anion Gap BUN Creatinine Est GFR ( Amer) Est GFR (Non-Af Amer) Glucose Calcium Phosphorus 4.1 Magnesium 2.3 Total Bilirubin Direct Bilirubin Neonat Total Bilirubin Neonat Direct Bilirubin Neonat Indirect Bili AST ALT Alkaline Phosphatase Ammonia Creatine Kinase CK-MB (CK-2) Troponin I NT-Pro-B Natriuret Pep Total Protein Albumin Amylase 94 Lipase Cancelled TSH 1.74 Free T4 1.28 Urine Color Urine Appearance Urine pH Ur Specific Luna Urine Protein Urine Glucose (UA) Urine Ketones Urine Blood Urine Nitrite Urine Bilirubin Urine Urobilinogen Ur Leukocyte Esterase Urine WBC (Auto) Urine RBC (Auto) U Hyaline Cast (Auto) Squamous Epi Cells Auto Urine Mucus (Auto) Urine Ascorbic Acid Urine Opiates Screen Urine Methadone Screen Ur Barbiturates Screen Ur Phencyclidine Scrn Ur Amphetamines Screen U Benzodiazepines Scrn Urine Cocaine Screen U Marijuana (THC) Screen 09/15/18 09/15/18 09/15/18 10:07 10:07 10:19 WBC RBC Hgb Hct MCV MCH MCHC RDW Plt Count Seg Neutrophils % Lymphocytes % Monocytes % Eosinophils % Basophils % Absolute Neutrophils Absolute Lymphocytes Absolute Monocytes Absolute Eosinophils Absolute Basophils PT INR APTT Carbonic Acid 1.54 H HCO3/H2CO3 Ratio 16:1 ABG pH 7.31 L ABG pCO2 51.3 H ABG pO2 61.3 L ABG HCO3 25.5 H ABG Total CO2 27.1 H ABG O2 Saturation 89.2 L ABG Base Excess -1.5 FiO2 3L Sodium Potassium Chloride Carbon Dioxide Anion Gap BUN Creatinine Est GFR ( Amer) Est GFR (Non-Af Amer) Glucose Calcium Phosphorus Magnesium Total Bilirubin Direct Bilirubin Neonat Total Bilirubin Neonat Direct Bilirubin Neonat Indirect Bili AST ALT Alkaline Phosphatase Ammonia 20.8 Creatine Kinase CK-MB (CK-2) Troponin I NT-Pro-B Natriuret Pep Total Protein Albumin Amylase Lipase TSH Free T4 Urine Color Urine Appearance Urine pH Ur Specific Luna Urine Protein Urine Glucose (UA) Urine Ketones Urine Blood Urine Nitrite Urine Bilirubin Urine Urobilinogen Ur Leukocyte Esterase Urine WBC (Auto) Urine RBC (Auto) U Hyaline Cast (Auto) Squamous Epi Cells Auto Urine Mucus (Auto) Urine Ascorbic Acid Urine Opiates Screen NEGATIVE Urine Methadone Screen NEGATIVE Ur Barbiturates Screen NEGATIVE Ur Phencyclidine Scrn NEGATIVE Ur Amphetamines Screen NEGATIVE U Benzodiazepines Scrn NEGATIVE Urine Cocaine Screen NEGATIVE U Marijuana (THC) Screen NEGATIVE 09/15/18 09/15/18 09/15/18 10:19 13:30 13:30 WBC RBC Hgb Hct MCV MCH MCHC RDW Plt Count Seg Neutrophils % Lymphocytes % Monocytes % Eosinophils % Basophils % Absolute Neutrophils Absolute Lymphocytes Absolute Monocytes Absolute Eosinophils Absolute Basophils PT INR APTT Carbonic Acid HCO3/H2CO3 Ratio ABG pH ABG pCO2 ABG pO2 ABG HCO3 ABG Total CO2 ABG O2 Saturation ABG Base Excess FiO2 Sodium Potassium Chloride Carbon Dioxide Anion Gap BUN Creatinine Est GFR ( Amer) Est GFR (Non-Af Amer) Glucose Calcium Phosphorus Magnesium Total Bilirubin Direct Bilirubin Neonat Total Bilirubin Neonat Direct Bilirubin Neonat Indirect Bili AST ALT Alkaline Phosphatase Ammonia Creatine Kinase 261 H CK-MB (CK-2) 1.63 Troponin I 0.021 NT-Pro-B Natriuret Pep Total Protein Albumin Amylase Lipase TSH Free T4 Urine Color JACKI Urine Appearance CLOUDY Urine pH 5.0 Ur Specific Luna 1.021 Urine Protein 30 H Urine Glucose (UA) NEGATIVE Urine Ketones NEGATIVE Urine Blood LARGE H Urine Nitrite NEGATIVE Urine Bilirubin NEGATIVE Urine Urobilinogen 2.0 H Ur Leukocyte Esterase NEGATIVE Urine WBC (Auto) 71 Urine RBC (Auto) >182 U Hyaline Cast (Auto) 34 Squamous Epi Cells Auto 1 Urine Mucus (Auto) MOD Urine Ascorbic Acid NEGATIVE Urine Opiates Screen Urine Methadone Screen Ur Barbiturates Screen Ur Phencyclidine Scrn Ur Amphetamines Screen U Benzodiazepines Scrn Urine Cocaine Screen U Marijuana (THC) Screen 09/15/18 09/15/18 20:35 20:35 WBC RBC Hgb Hct MCV MCH MCHC RDW Plt Count Seg Neutrophils % Lymphocytes % Monocytes % Eosinophils % Basophils % Absolute Neutrophils Absolute Lymphocytes Absolute Monocytes Absolute Eosinophils Absolute Basophils PT INR APTT Carbonic Acid HCO3/H2CO3 Ratio ABG pH ABG pCO2 ABG pO2 ABG HCO3 ABG Total CO2 ABG O2 Saturation ABG Base Excess FiO2 Sodium Potassium Chloride Carbon Dioxide Anion Gap BUN Creatinine Est GFR ( Amer) Est GFR (Non-Af Amer) Glucose Calcium Phosphorus Magnesium Total Bilirubin Direct Bilirubin Neonat Total Bilirubin Neonat Direct Bilirubin Neonat Indirect Bili AST ALT Alkaline Phosphatase Ammonia Creatine Kinase 855 H CK-MB (CK-2) 6.56 H Troponin I 0.022 NT-Pro-B Natriuret Pep Total Protein Albumin Amylase Lipase TSH Free T4 Urine Color Urine Appearance Urine pH Ur Specific Luna Urine Protein Urine Glucose (UA) Urine Ketones Urine Blood Urine Nitrite Urine Bilirubin Urine Urobilinogen Ur Leukocyte Esterase Urine WBC (Auto) Urine RBC (Auto) U Hyaline Cast (Auto) Squamous Epi Cells Auto Urine Mucus (Auto) Urine Ascorbic Acid Urine Opiates Screen Urine Methadone Screen Ur Barbiturates Screen Ur Phencyclidine Scrn Ur Amphetamines Screen U Benzodiazepines Scrn Urine Cocaine Screen U Marijuana (THC) Screen Renal Ultrasound 09/15/18 00:00 IMPRESSION: No evidence hydronephrosis. Chest X-Ray 09/15/18 07:05 IMPRESSION: No acute disease. Abdomen/Pelvis CT 09/15/18 08:37 IMPRESSION: 1. There is a focal area of inflammatory changes associated with the bowel just to the left of the midline as described. Possible diverticuliti s. 2. Considerable fluid is present in the bowel. Cannot exclude an enteritis. EKG: LVH with repolarization. Subsequent EKG after cardioversion shows sinus rhythm LVH. Pressure/recommendation: 1. Paroxysmal atrial fibrillation: Patient admitted with atrial fibrillation with rapid ventricular response and hypotension. Patient has been cardioverted. The patient at present on amiodarone. Continue amiodarone. Continue his beta- rosa. Also at present in view of the patient's possible acute abdomen with a possible enteritis and diverticulitis. Would hold the patient's Xarelto. If Xa relto restarted would do according to the patient's renal function status. 2. Acute renal failure/injury: Nephrology on the case. Most likely secondary to infection and dehydration and atrial fibrillation with rapid ventricular response. Would recommend hydrating the patient and following nephrology advice. 3. Possibly mild exacerbation of COPD: At present seems to be stable. Continue the patient on antibiotics and respiratory treatments. Next 4. Hypertension: Blood pressure stable. Next 5. Coronary artery disease: Patient stable with no anginal symptoms. 6. Acute abdomen with possible diverticulitis and enteritis. Continue antibiotics. 7. History of asthma/COPD: Continue anti-COPD treatment. 8. Obstructive sleep apnea: Continue BiPAP instructed patient the importance of using BiPAP. 9. Cardiomyopathy: No evidence of heart failure. 10. AICD placement: No firing of AICD. 11. History of depression schizoaffective disorder and posttraumatic stress disorder. Medications reviewed medications adjusted plan of care discussed with attending physician. Medical decision making is of high complexity. 60 minutes spent on this patient more than 50% of time spent in direct patient care. We will follow with you.
[2018-09-16] MEDS ORDERED: FUROSEMIDE INJ/PF 40 MG/4 ML SDV IV ONE (00:15)
[2018-09-16] MEDS: NORMAL SALINE 1000 ML 1,000 ML IV PRN ×3 (00:36→13:33)
[2018-09-16] MEDS: METRONIDAZOLE 500 MG/NS RTU 500 MG/100 ML RTUPB IV SCH ×4 (03:54→20:57)
[2018-09-16] MEDS: DEXTROSE 5%-WATER 500 ML with AMIODARONE HCL 900 MG IV PRN ×2 (09:22)
[2018-09-16] MEDS: CEFTRIAXONE SODIUM 1,000 MG in DEXTROSE 5%-WATER 50 ML IV SCH (10:37)
[2018-09-16] MEDS: AMIODARONE HCL 200 MG TABLET PO SCH ×2 (10:37→21:11)
[2018-09-16 10:57] LABS: ABSOLUTE EOSINOPHILS # (AUTO) 0.2 10^3/uL (0.0-0.6); ABSOLUTE LYMPHOCYTES (AUTO) 1.2 10^3/uL (0.5-4.7); ABSOLUTE MONOCYTES (AUTO) 1.1 10^3/uL (0.1-1.4); ABSOLUTE NEUT (AUTO) 4.2 10^3/uL (1.7-8.2); BASOPHILS % (AUTO) 0.1 % (0-2); HEMATOCRIT 41.4 % (37.9-51.0); LYMPHOCYTES % (AUTO) 18.3 % (13-45); MEAN CORPUSCULAR HEMOGLOBIN 27.3 pg (27.0-33.4); MEAN CORPUSCULAR HGB CONC 33.1 g/dL (32.0-36.0); MEAN CORPUSCULAR VOLUME 83 fl (80-97); MONOCYTES % (AUTO) 16.5 % (3-13); RED BLOOD COUNT 5.01 10^6/uL (4.35-5.55); RED CELL DISTRIBUTION WIDTH 17.1 % (11.5-14.0); SEGMENTED NEUTROPHILS % (AUTO) 62.1 % (42-78); TOTAL CELLS COUNTED % (AUTO) 100 %; WHITE BLOOD COUNT 6.7 10^3/uL (4.0-10.5)
[2018-09-16 11:15] LABS: ANION GAP 8 (5-19); BLOOD UREA NITROGEN 52 mg/dL (7-20); CALCIUM 8.2 mg/dL (8.4-10.2); CARBON DIOXIDE 24 mmol/L (22-30); CHLORIDE 111 mmol/L (98-107); GLUCOSE 111 mg/dL (75-110); SODIUM 143.3 mmol/L (137-145)
[2018-09-16 11:28] LABS: HEMOGLOBIN 13.7 g/dL (13.5-17.0); PLATELET COUNT 92 10^3/uL (150-450)
[2018-09-16] MEDS ORDERED: CEFTRIAXONE SODIUM 1,000 MG in DEXTROSE 5%-WATER 50 ML IV SCH (16:00)
--- NOTE | 2018-09-16 16:57 | PDOC PROGRESS REPORT ---
Subjective Progress Note for:: 09/16/18 Subjective:: Patient is doing much better when I saw him this morning. He was taken off the BiPAP and he seems to be breathing fine. Although his urine output was only recorded is 208 I was told by the nurse that they were having issues with his [place] catheter last night so it was removed. When they remove the [place] catheter urine just came out and it spilled all over the bed so that was not quantified. His intake is about 3 L plus from the last 24 hours from IV fluids. Today he was making a pretty good amount of urine output so far when I was there this morning he made 650 mL of urine already. He was voiding on his own without a Aldana catheter. A dose of furosemide 40 mg was given at 12:30 AM. He is also breathing better. His abdominal dull pain was better after he has had a good bowel movement overnight. Overall he said he feels better. He continues to be on the amiodarone drip and is currently still on normal sinus rhythm. Reason For Visit: ACUTE KIDNEY INJURY,PAROXYSMAL ATRIAL FIBRILLATION Physical Exam Vital Signs: Temp Pulse Resp BP Pulse Ox 97.6 F 86 29 H 131/80 H 98 09/16/18 07:00 09/16/18 07:00 09/16/18 07:00 09/16/18 07:00 09/16/18 07:00 Intake & Output 09/15/18 09/16/18 09/17/18 06:59 06:59 06:59 Intake Total 3395 Output Total 208 Balance 3187 Weight 127.006 kg 126.6 kg Exam: General appearance: PRESENT: no acute distress, cooperative, well-developed, well-nourished Head exam: PRESENT: atraumatic, normocephalic Eye exam: PRESENT: conjunctiva pink, PERRLA. ABSENT: scleral icterus Neck exam: ABSENT: JVD Respiratory exam: PRESENT: Diminished breath sounds. ABSENT: crackles, rales, rhonchi, unlabored, wheezes Cardiovascular exam: PRESENT: Regular rate rhythm -+S1, +S2. ABSENT: diastolic murmur, systolic murmur GI/Abdominal exam: PRESENT: normal bowel sounds, soft. ABSENT: guarding, mass, tenderness Extremities exam: ABSENT: No edema Neurological exam: PRESENT: alert, awake, oriented to person, place and time. Skin exam: PRESENT: dry, warm, Results Laboratory Results: 09/15/18 07:07 09/15/18 07:07 09/15/18 09/15/18 09/15/18 07:07 10:07 10:07 Carbonic Acid 1.54 H HCO3/H2CO3 Ratio 16:1 ABG pH 7.31 L ABG pCO2 51.3 H ABG pO2 61.3 L ABG HCO3 25.5 H ABG O2 Saturation 89.2 L ABG Base Excess -1.5 FiO2 3L Ammonia 20.8 TSH 1.74 Free T4 1.28 Urine Color Urine Appearance Urine pH Ur Specific [place] Urine Protein Urine Glucose (UA) Urine Ketones Urine Blood Urine Nitrite Ur Leukocyte Esterase Urine WBC (Auto) Urine RBC (Auto) 09/15/18 10:19 Carbonic Acid HCO3/H2CO3 Ratio ABG pH ABG pCO2 ABG pO2 ABG HCO3 ABG O2 Saturation ABG Base Excess FiO2 Ammonia TSH Free T4 Urine Color JACKI Urine Appearance CLOUDY Urine pH 5.0 Ur Specific [place] 1.021 Urine Protein 30 H Urine Glucose (UA) NEGATIVE Urine Ketones NEGATIVE Urine Blood LARGE H Urine Nitrite NEGATIVE Ur Leukocyte Esterase NEGATIVE Urine WBC (Auto) 71 Urine RBC (Auto) >182 09/15/18 09/15/18 09/15/18 07:07 13:30 13:30 Creatine Kinase 261 H CK-MB (CK-2) 1.63 Troponin I 0.015 0.021 NT-Pro-B Natriuret Pep 239 09/15/18 09/15/18 20:35 20:35 Creatine Kinase 855 H CK-MB (CK-2) 6.56 H Troponin I 0.022 NT-Pro-B Natriuret Pep Impressions: Renal Ultrasound 09/15/18 00:00 IMPRESSION: No evidence hydronephrosis. Chest X-Ray 09/15/18 07:05 IMPRESSION: No acute disease. Abdomen/Pelvis CT 09/15/18 08:37 IMPRESSION: 1. There is a focal area of inflammatory changes associated with the bowel just to the left of the midline as described. Possible diverticulitis. 2. Considerable fluid is present in the bowel. Cannot exclude an enteritis. Assessment & Plan - Diagnosis (1) Acute kidney injury Is this a current diagnosis for this admission?: Yes Plan: Likely initially due to prerenal azotemia which could have progressed to acute tubular necrosis with acute onset of atrial fibrillation and rapid ventricular response requiring acute cardioversion. Patient is currently nonoliguric. Kidney function today is mildly worse from yesterday but not significantly worse. There is no indication for any urgent or emergent renal replacement therapy. We will continue to monitor the patient's kidney function and proceed accordingly. Discussed this update with the patient and his at bedside today. (2) Abdominal pain Qualifiers: Abdominal location: generalized Qualified Code(s): R10.84 - Generalized abdominal pain Is this a current diagnosis for this admission?: Yes Plan: Improved with bowel movement. CT scan showed possibility of diverticulitis as well. Defer management to Dr. Ayala. (3) Atrial fibrillation Qualifiers: Atrial fibrillation type: unspecified Qualified Code(s): I48.91 - Unspecified atrial fibrillation Is this a current diagnosis for this admission?: Yes Plan: Status post cardioversion. Currently in normal sinus rhythm on amiodarone drip. Cardiology following. (4) CAD (coronary artery disease) Qualifiers: Coronary Disease-Associated Artery/Lesion type: [place] artery [place] vs. transplanted heart: [place] heart Associated angina: without angina Qualified Code(s): I25.10 - Atherosclerotic heart disease of [place] coronary artery without angina pectoris Is this a current diagnosis for this admission?: Yes (5) Respiratory failure Qualifiers: Chronicity: acute Respiratory failure complication: hypoxia Qualified Code(s): J96.01 - Acute respiratory failure with hypoxia Is this a current diagnosis for this admission?: Yes Plan: Improving, currently off the BiPAP. - Time Time with patient: 15-25 minutes
[2018-09-16] MEDS: ACETAMINOPHEN 325 MG TABLET PO PRN (19:22)
--- NOTE | 2018-09-16 21:03 | PDOC PROGRESS REPORT ---
Subjective Progress Note for:: 09/16/18 Subjective:: Patient was seen by the bedside, the urinary catheter was clogged with resultant retention of urine, the catheter was DC'd this morning, Reason For Visit: ACUTE KIDNEY INJURY,PAROXYSMAL ATRIAL FIBRILLATION Physical Exam Vital Signs: Temp Pulse Resp BP Pulse Ox 101.0 F H 93 21 H 111/68 97 09/16/18 19:15 09/16/18 19:15 09/16/18 19:15 09/16/18 19:15 09/16/18 19:15 Intake & Output 09/15/18 09/16/18 09/17/18 06:59 06:59 06:59 Intake Total 3395 1554 Output Total 208 450 Balance 3187 1104 Weight 127.006 kg 126.6 kg General appearance: PRESENT: no acute distress Eye exam: PRESENT: PERRLA Respiratory exam: PRESENT: clear to auscultation martita Cardiovascular exam: PRESENT: +S1, +S2 GI/Abdominal exam: PRESENT: distended, soft Neurological exam: PRESENT: alert Results Laboratory Results: 09/16/18 10:30 09/16/18 10:30 09/16/18 09/16/18 10:30 10:30 WBC 6.7 RBC 5.01 Hgb 13.7 D Hct 41.4 MCV 83 MCH 27.3 MCHC 33.1 RDW 17.1 H Plt Count 92 L Seg Neutrophils % 62.1 Lymphocytes % 18.3 Monocytes % 16.5 H Eosinophils % 3.0 Basophils % 0.1 Absolute Neutrophils 4.2 Absolute Lymphocytes 1.2 Absolute Monocytes 1.1 Absolute Eosinophils 0.2 Absolute Basophils 0.0 Sodium 143.3 Potassium 4.0 Chloride 111 H Carbon Dioxide 24 Anion Gap 8 BUN 52 H Creatinine 4.90 H Est GFR ( Amer) 15 L Est GFR (Non-Af Amer) 12 L Glucose 111 H Calcium 8.2 L 09/15/18 09/15/18 09/15/18 07:07 13:30 13:30 Creatine Kinase 261 H CK-MB (CK-2) 1.63 Troponin I 0.015 0.021 NT-Pro-B Natriuret Pep 239 09/15/18 09/15/18 20:35 20:35 Creatine Kinase 855 H CK-MB (CK-2) 6.56 H Troponin I 0.022 NT-Pro-B Natriuret Pep Impressions: Renal Ultrasound 09/15/18 00:00 IMPRESSION: No evidence hydronephrosis. Chest X-Ray 09/15/18 07:05 IMPRESSION: No acute disease. Abdomen/Pelvis CT 09/15/18 08:37 IMPRESSION: 1. There is a focal area of inflammatory changes associated with the bowel just to the left of the midline as described. Possible diverticulitis. 2. Considerable fluid is present in the bowel. Cannot exclude an enteritis. Assessment & Plan - Diagnosis (1) Acute kidney injury Is this a current diagnosis for this admission?: Yes Plan: Continue present IV fluid therapy (2) Acute diverticulitis Is this a current diagnosis for this admission?: Yes Plan: Continue IV antibiotic (3) Atrial fibrillation with RVR Is this a current diagnosis for this admission?: Yes (4) Morbid obesity due to excess calories Is this a current diagnosis for this admission?: Yes (5) Hypotension Qualifiers: Hypotension type: unspecified hypotension type Qualified Code(s): I95.9 - Hypotension, unspecified Is this a current diagnosis for this admission?: Yes Plan: The blood pressure is low, will continue to hold off on antihypertensive medication
--- NOTE | 2018-09-17 00:56 | Progress Note ---
Provider Note Provider Note: CARDIOLOGY PROGRESS NOTE by Dr. Ana Jon on 09/16/2018. Subjective: The patient remains in sinus rhythm. The patient denies any chest pain or discomfort. He says his abdominal pain is much better but still has some discomfort on palpation. He is not had a diarrhea. There is no hematemesis or melena or bright red blood per rectum. There is no nausea or vomiting. The patient still has some fever. He has no PND orthopnea or leg edema. His renal function is improving. There is no ventricular arrhythmia seen on the monitor. There is no TIA CVA symptoms. PHYSICAL EXAMINATION: The patient is morbidly obese. He is in no acute distress. Selected Entries 09/16/18 09/16/18 15:59 16:00 Temperature 100.0 F Pulse Rate 93 Respiratory 20 Rate Blood Pressure 119/64 Blood Pressure 119/65 [Left Upper Arm ] Blood Pressure 82 Mean Blood Pressure 83 Mean [Left Upper Arm] Blood Pressure Sitting Position [Left Upper Arm] O2 Sat by Pulse 93 Oximetry Oxygen Delivery Nasal Cannula Method ( includes room air) Oxygen Flow 3 Rate HEAD: Is atraumatic normocephalic. EYES: Pupils are equal round regular reactive light accommodation. Extraocular movements are normal. There is no conjunctival pallor. There is no scleral icterus. EARS: Tympanic memories are intact. External auditory canals are clear. NOSE: There is no deviated nasal septum. There is no inflammation of the nasal mucous membrane. MOUTH: Mucous membranes of mouth are moist. Tongue is moist. There is no ulcers there is no bleeding from the gums. Throat: There is no redness of the oropharynx. There is no exudates. SKIN: There is no skin rashes or skin lesions. There is no petechia or ecchymosis. NECK: Supple. There is no JVD. Carotids are equal there is no bruit. There is no accessory muscles of respiration use. Trachea central. LUNGS: There is diminished air entry prolonged expiration. There is a few scattered rhonchi. There is no wheezing or rales. On percussion there is hyperresonance. On palpation there is no chest wall tenderness. HEART: S1-S2 is heard S1 is of normal intensity. There is no S3 gallop there is no S4 gallop. There is systolic murmur left sternal border and the apex there is no rub. ABDOMEN: Is soft. There is mild discomfort on palpating the abdomen. There is mild abdominal distention. Bowel sounds are slightly diminished. There is no rebound guarding or rigidity. There is no hepatosplenomegaly. Bowel sounds are well heard. Extremities: Femorals are diminished there is no femoral bruits. Leg pulses are diminished. THERE IS NO PEDAL EDEMA. THERE IS NO DVT OR CELLULITIS. THERE IS NO CALF TENDERNESS. DRAW END HAND: The patient is conscious awake alert oriented x3 with no focal deficits. The patient has dysarthria. PSYCHIATRIC: At present the patient judgment insight are intact his affect is normal.. Labs- All tests 24 hr 09/16/18 09/16/18 10:30 10:30 WBC 6.7 RBC 5.01 Hgb 13.7 D Hct 41.4 MCV 83 MCH 27.3 MCHC 33.1 RDW 17.1 H Plt Count 92 L Seg Neutrophils % 62.1 Lymphocytes % 18.3 Monocytes % 16.5 H Eosinophils % 3.0 Basophils % 0.1 Absolute Neutrophils 4.2 Absolute Lymphocytes 1.2 Absolute Monocytes 1.1 Absolute Eosinophils 0.2 Absolute Basophils 0.0 Sodium 143.3 Potassium 4.0 Chloride 111 H Carbon Dioxide 24 Anion Gap 8 BUN 52 H Creatinine 4.90 H Est GFR ( Amer) 15 L Est GFR (Non-Af Amer) 12 L Glucose 111 H Calcium 8.2 L Renal Ultrasound 09/15/18 00:00 IMPRESSION: No evidence hydronephrosis. Chest X-Ray 09/15/18 07:05 IMPRESSION: No acute disease. Abdomen/Pelvis CT 09/15/18 08:37 IMPRESSION: 1. There is a focal area of inflammatory changes associated with the bowel just to the left of the midline as described. Possible diverticulitis. 2. Considerable fluid is present in the bowel. Cannot exclude an enteritis. Pressure/recommendation: 1. Paroxysmal atrial fibrillation: Patient admitted with atrial fibrillation with rapid ventricular response and hypotension. Patient has been cardioverted. The patient since he remains in sinus rhythm amiodarone infusion, and start the patient on amiodarone 200 mg p.o. every 12 hours. Also at present in view of the patient's possible acute abdomen with a possible enteritis and diverticulitis. Would hold the patient's Xarelto. If Xarelto restarted would do according to the patient's renal function status. 2. Acute renal failure/injury: Nephrology on the case. Most likely secondary to infection and dehydration and atrial fibrillation with rapid ventricular response. Would recommend hydrating the patient and following nephrology advice. 3. Possibly mild exacerbation of COPD: At present seems to be stable. Continue the patient on antibiotics and respiratory treatments. Next 4. Hypertension: Blood pressure stable. Next 5. Coronary artery disease: Patient stable with no anginal symptoms. 6. Acute abdomen with possible diverticulitis and enteritis. Continue antibiotics. 7. History of asthma/COPD: Continue anti-COPD treatment. 8. Obstructive sleep apnea: Continue BiPAP instructed patient the importance of using BiPAP. 9. Cardiomyopathy: No evidence of heart failure. 10. AICD placement: No firing of AICD. 11. History of depression schizoaffective disorder and posttraumatic stress disorder. MEDICATIONS reviewed. Medications adjusted. Management plan discussed with attending physician on the case. Medical decision making is of high complexity. 40 minutes spent on this patient with more than 50% time spent in direct patient care. Discussed with the patient and with the was at bedside with the patient's permission. The patient is a full code. His is his surrogate healthcare decision maker. Will follow the patient, and his also desire that the patient follow-up with me as an outpatient.
[2018-09-17] MEDS: METRONIDAZOLE 500 MG/NS RTU 500 MG/100 ML RTUPB IV SCH ×2 (04:00→14:38)
[2018-09-17] MEDS: NORMAL SALINE 1000 ML 1,000 ML IV PRN ×2 (06:02→20:17)
[2018-09-17] MEDS ORDERED: METOPROLOL TARTRATE PF/INJ 5 MG/5 ML SDV IV ONE (06:57)
[2018-09-17] MEDS ORDERED: AMIODARONE HCL INJ 150 MG/3 ML VIAL IV PRN (07:07)
[2018-09-17] MEDS: DEXTROSE 5%-WATER 500 ML with AMIODARONE HCL 900 MG IV PRN ×2 (07:25)
[2018-09-17] MEDS ORDERED: DIGOXIN INJ 0.5 MG/2 ML AMPULE IV ONE (08:15)
--- NOTE | 2018-09-17 08:29 | EKG REPORT ---
SEVERITY:- ABNORMAL ECG - SUPRAVENTRICULAR TACHYCARDIA PROBABLE LVH WITH SECONDARY REPOL ABNRM : Confirmed by: Ana Jon MD 17-Sep-2018 08:28:37
[2018-09-17] MEDS ORDERED: DILTIAZEM HCL INJ 25 MG/5 ML VIAL ONE (08:55)
[2018-09-17] MEDS ORDERED: FUROSEMIDE INJ/PF 40 MG/4 ML SDV ONE (09:14)
[2018-09-17] MEDS ORDERED: DILTIAZEM HCL INJ 25 MG/5 ML VIAL IV ONE (09:15)
[2018-09-17] MEDS ORDERED: DIGOXIN INJ 0.5 MG/2 ML AMPULE ONE (09:38)
[2018-09-17] MEDS ORDERED: ADENOSINE INJ/PF 6 MG/2 ML SDV IV ONE (09:50)
[2018-09-17] MEDS ORDERED: MIDAZOLAM 2 MG/2 ML INJ ONE ×3 (09:54→10:25)
[2018-09-17 10:04] LABS: ARTERIAL BLOOD BASE EXCESS -2.5 mmol/L; ARTERIAL BLOOD FIO2 40%; ARTERIAL BLOOD H2CO3 1.32 mmol/L (1.05-1.35); ARTERIAL BLOOD HCO3 23.3 mmol/L (20-24); ARTERIAL BLOOD O2 SATURATION 97.9 % (94-98); ARTERIAL BLOOD PCO2 43.8 mmHg (35-45); ARTERIAL BLOOD PH 7.34 (7.35-7.45); ARTERIAL BLOOD PO2 113.8 mmHg (80-100); ARTERIAL BLOOD TOTAL CO2 24.6 mmol/L (23-27)
[2018-09-17 10:12] LABS: ABSOLUTE EOSINOPHILS # (AUTO) 0.2 10^3/uL (0.0-0.6); ABSOLUTE MONOCYTES (AUTO) 1.1 10^3/uL (0.1-1.4); ABSOLUTE NEUT (AUTO) 4.1 10^3/uL (1.7-8.2); BASOPHILS % (AUTO) 0.1 % (0-2); EOSINOPHILS % (AUTO) 2.7 % (0-6); HEMATOCRIT 41.7 % (37.9-51.0); LYMPHOCYTES % (AUTO) 15.8 % (13-45); MEAN CORPUSCULAR HEMOGLOBIN 27.6 pg (27.0-33.4); MEAN CORPUSCULAR HGB CONC 33.7 g/dL (32.0-36.0); MEAN CORPUSCULAR VOLUME 82 fl (80-97); MONOCYTES % (AUTO) 17.8 % (3-13); PLATELET COUNT 112 10^3/uL (150-450); RED BLOOD COUNT 5.09 10^6/uL (4.35-5.55); RED CELL DISTRIBUTION WIDTH 16.5 % (11.5-14.0); SEGMENTED NEUTROPHILS % (AUTO) 63.6 % (42-78); TOTAL CELLS COUNTED % (AUTO) 100 %; WHITE BLOOD COUNT 6.4 10^3/uL (4.0-10.5)
[2018-09-17 10:30] LABS: ANION GAP 8 (5-19); BLOOD UREA NITROGEN 42 mg/dL (7-20); CARBON DIOXIDE 23 mmol/L (22-30); CHLORIDE 114 mmol/L (98-107); CREATINE KINASE 1250 U/L (55-170); GLUCOSE 118 mg/dL (75-110); POTASSIUM 4.1 mmol/L (3.6-5.0); SODIUM 145.1 mmol/L (137-145)
--- NOTE | 2018-09-17 10:38 | RADIOLOGY REPORT (SQ) ---
EXAM DESCRIPTION: CHEST SINGLE VIEW COMPLETED DATE/TIME: 09/17/2018 10:25 am REASON FOR STUDY: chest pain COMPARISON: 09/15/2018 EXAM PARAMETERS: NUMBER OF VIEWS: One view. TECHNIQUE: Single frontal radiographic view of the chest acquired. RADIATION DOSE: NA LIMITATIONS: None. FINDINGS: LUNGS AND PLEURA: MINIMAL LINEAR LEFT BASILAR OPACITY, LIKELY ATELECTASIS. NO PLEURAL EFF USION OR PNEUMOTHORAX. MEDIASTINUM AND HILAR STRUCTURES: STABLE. HEART AND VASCULAR STRUCTURES: NORMAL HEART SIZE. BONES: No acute findings. HARDWARE: LEFT-SIDED CARDIAC PACER, UNCHANGED. ENTERIC TUBE PRESENT WITH DISTAL TIP LIKELY OVERLYING PROXIMAL STOMACH ALTHOUGH EVALUATION LIMITED. DEFIBRILLATOR PADS OVERLIE CHEST. OTHER: NO OTHER SIGNIFICANT FINDING. IMPRESSION: 1. MINIMAL LINEAR LEFT BASILAR OPACITIES LIKELY ATELECTASIS. 2. ENTERIC TUBE TIP LIKELY OVERLIES PROXIMAL STOMACH ALTHOUGH EVALUATION LIMITED. SIDE PORT NOT ANABELA NTIFIED. TECHNICAL DOCUMENTATION: JOB ID: [id number] [employer]- All Rights Reserved Reading location - IP/workstation name: [email or web address]
[2018-09-17 10:41] LABS: CREATINE KINASE MB 3.91 ng/mL (<4.55)
--- NOTE | 2018-09-17 10:41 | RADIOLOGY REPORT (SQ) ---
EXAM DESCRIPTION: KUB/ABDOMEN (SINGLE VIEW) COMPLETED DATE/TIME: 09/17/2018 10:25 am REASON FOR STUDY: abdominal distention COMPARISON: None. NUMBER OF VIEWS: One view. TECHNIQUE: Supine radiographic image of the abdomen acquired. LIMITATIONS: None. FINDINGS: BOWEL GAS PATTERN: Dilated air-filled loops of small bowel are present. Stomach is disten ded. CALCIFICATIONS: No suspicious calcifications. SOFT TISSUES: No gross mass or suggestion of organomegaly. HARDWARE: An NG tube extends to gastric fundus. The stomach is decompressed on the image that shows the NG tube. BONES: No acute fracture. No worrisome bone lesions. OTHER: No other significant finding. IMPRESSION: Small bowel obstruction. NG tube placement. TECHNICAL DOCUMENTATION: JOB ID: [id number] [employer]- All Rights Reserved Reading location - IP/workstation name: [email or web address]
[2018-09-17 10:44] LABS: TROPONIN I < 0.012 ng/mL
[2018-09-17] MEDS: CEFTRIAXONE SODIUM 1,000 MG in DEXTROSE 5%-WATER 50 ML IV SCH (13:58)
--- NOTE | 2018-09-17 17:13 | PDOC PROGRESS REPORT ---
Subjective Progress Note for:: 09/17/18 Subjective:: Events this morning noted. Patient went into atrial fibrillation with rapid ventricular response again requiring calling the rapid response team. Dr. Hausre did another cardioversion and restarted amiodarone drip. Dr. hernandez recommended patient to be intubated and transferred to ICU but the patient refused and just wanted to be on the BiPAP. His abdomen was also noted to be more bloated and so an NG tube was placed and a KUB showed possible small bowel obstruction. Surgery consult is pending. For the past 24 hours he is making an acceptable amount of urine output. However with this event this morning is probably expected that his kidney function could have been affected. When I entered the room the patient is awake on BiPAP and answering questions. There is a significant amount of output from the NG tube, about 700 mL of gastric contents. Reason For Visit: ACUTE KIDNEY INJURY,PAROXYSMAL ATRIAL FIBRILLATION Physical Exam Vital Signs: Temp Pulse Resp BP Pulse Ox 99.4 F 158 H 22 H 111/92 H 96 09/17/18 07:32 09/17/18 09:00 09/17/18 09:54 09/17/18 07:43 09/17/18 09:54 Intake & Output 09/16/18 09/17/18 09/18/18 06:59 06:59 06:59 Intake Total 3395 3404 Output Total 208 1300 Balance 3187 2104 Weight 126.6 kg 127.6 kg Exam: General appearance: PRESENT: Patient on BiPAP, awake, cooperative, well- developed, well-nourished Head exam: PRESENT: atraumatic, normocephalic Eye exam: PRESENT: conjunctiva slightly pale, PERRLA. ABSENT: scleral icterus Neck exam: ABSENT: JVD Respiratory exam: PRESENT: Diminished breath sounds. ABSENT: crackles, rales, rhonchi, unlabored, wheezes Cardiovascular exam: PRESENT: Regular rate rhythm -+S1, +S2. ABSENT: diastolic murmur, systolic murmur GI/Abdominal exam: PRESENT: Diminished bowel sounds, distended but seems to be softer with the NG tube insertion. Patient denies much tenderness on palpation ABSENT: guarding, mass, tenderness Extremities exam: Grade 1 bilateral lower extremity pitting edema Neurological exam: PRESENT: alert, awake, answering questions. Skin exam: PRESENT: dry, warm, Results Laboratory Results: 09/17/18 09:48 09/17/18 09:48 09/16/18 09/17/18 09/17/18 10:30 09:20 09:48 WBC 6.7 6.4 RBC 5.01 5.09 Hgb 13.7 D 14.0 Hct 41.4 41.7 MCV 83 82 MCH 27.3 27.6 MCHC 33.1 33.7 RDW 17.1 H 16.5 H Plt Count 92 L 112 L Seg Neutrophils % 62.1 63.6 Lymphocytes % 18.3 15.8 Monocytes % 16.5 H 17.8 H Eosinophils % 3.0 2.7 Basophils % 0.1 0.1 Absolute Neutrophils 4.2 4.1 Absolute Lymphocytes 1.2 1.0 Absolute Monocytes 1.1 1.1 Absolute Eosinophils 0.2 0.2 Absolute Basophils 0.0 0.0 Carbonic Acid 1.32 HCO3/H2CO3 Ratio 17:1 ABG pH 7.34 L ABG pCO2 43.8 ABG pO2 113.8 H ABG HCO3 23.3 ABG O2 Saturation 97.9 ABG Base Excess -2.5 FiO2 40% Sodium Potassium Chloride Carbon Dioxide Anion Gap BUN Creatinine Est GFR ( Amer) Est GFR (Non-Af Amer) Glucose Calcium Magnesium 09/17/18 09:48 WBC RBC Hgb Hct MCV MCH MCHC RDW Plt Count Seg Neutrophils % Lymphocytes % Monocytes % Eosinophils % Basophils % Absolute Neutrophils Absolute Lymphocytes Absolute Monocytes Absolute Eosinophils Absolute Basophils Carbonic Acid HCO3/H2CO3 Ratio ABG pH ABG pCO2 ABG pO2 ABG HCO3 ABG O2 Saturation ABG Base Excess FiO2 Sodium 145.1 H Potassium 4.1 Chloride 114 H Carbon Dioxide 23 Anion Gap 8 BUN 42 H Creatinine 2.87 H Est GFR ( Amer) 27 L Est GFR (Non-Af Amer) 22 L Glucose 118 H Calcium 9.0 Magnesium 2.2 09/15/18 10:19 Catheterized Urine Urine Culture - Final NO GROWTH 2 DAYS 09/15/18 09/15/18 09/15/18 07:07 13:30 13:30 Creatine Kinase 261 H CK-MB (CK-2) 1.63 Troponin I 0.015 0.021 NT-Pro-B Natriuret Pep 239 09/15/18 09/15/18 09/17/18 20:35 20:35 09:48 Creatine Kinase 855 H 1250 H CK-MB (CK-2) 6.56 H Troponin I 0.022 NT-Pro-B Natriuret Pep 09/17/18 09:48 Creatine Kinase CK-MB (CK-2) 3.91 Troponin I < 0.012 NT-Pro-B Natriuret Pep Impressions: Renal Ultrasound 09/15/18 00:00 IMPRESSION: No evidence hydronephrosis. Abdomen/Pelvis CT 09/15/18 08:37 IMPRESSION: 1. There is a focal area of inflammatory changes associated with the bowel just to the left of the midline as described. Possible diverticulitis. 2. Considerable fluid is present in the bowel. Cannot exclude an enteritis. Chest X-Ray 09/17/18 00:00 IMPRESSION: 1. MINIMAL LINEAR LEFT BASILAR OPACITIES LIKELY ATELECTASIS. 2. ENTERIC TUBE TIP LIKELY OVERLIES PROXIMAL STOMACH ALTHOUGH EVALUATION LIMITED. SIDE PORT NOT IDENTIFIED. KUB X-Ray 09/17/18 00:00 IMPRESSION: Small bowel obstruction. NG tube placement. Assessment & Plan - Diagnosis (1) Acute kidney injury Is this a current diagnosis for this admission?: Yes Plan: Likely initially due to prerenal azotemia which could have progressed to acute tubular necrosis with acute onset of atrial fibrillation and rapid ventricular response requiring acute cardioversion. Patient is currently nonoliguric. Kidney function appears to be be improved with the a.m. blood work. There is no indication for any urgent or emergent renal replacement therapy. With the event this morning I would not be surprised that the patient's kidney function gets worse again. We will continue to monitor the patient's kidney function and proceed accordingly. Discussed this update with the patient . (2) Abdominal pain Qualifiers: Abdominal location: generalized Qualified Code(s): R10.84 - Generalized ab dominal pain Is this a current diagnosis for this admission?: Yes Plan: Initial CT scan showed possibility of diverticulitis . KUB this morning showed possible small bowel obstruction. Currently with NG tube to suction. Pending surgery consultation. (3) Atrial fibrillation Qualifiers: Atrial fibrillation type: unspecified Qualified Code(s): I48.91 - Unspecified atrial fibrillation Is this a current diagnosis for this admission?: Yes Plan: Status post cardioversion twice. Currently in normal sinus rhythm on amiodarone drip. Cardiology following. (4) CAD (coronary artery disease) Qualifiers: Coronary Disease-Associated Artery/Lesion type: [place] artery [place] vs. transplanted heart: [place] heart Associated angina: without angina Qualified Code(s): I25.10 - Atherosclerotic heart disease of [place] coronary artery without angina pectoris Is this a current diagnosis for this admission?: Yes (5) Respiratory failure Qualifiers: Chronicity: acute Respiratory failure complication: hypoxia Qualified Code(s): J96.01 - Acute respiratory failure with hypoxia Is this a current diagnosis for this admission?: Yes Plan: Back on BiPAP. - Time Time with patient: 15-25 minutes
[2018-09-17] MEDS: HYDROCORTISONE ACETATE 25 MG SUPP.RECT PR PRN (17:22)
--- NOTE | 2018-09-17 18:59 | RADIOLOGY REPORT (SQ) ---
EXAM DESCRIPTION: CT ABD/PELVIS ORAL ONLY COMPLETED DATE/TIME: 09/17/2018 6:33 pm REASON FOR STUDY: ABDOMINAL DISTENSION COMPARISON: CT ABDOMEN PELVIS 09/15/2018, 05/16/2017 TECHNIQUE: CT scan of the abdomen and pelvis performed without intravenous or oral contrast. Images reviewed with lung, soft tissue, and bone windows. Reconstructed coronal and sagittal MPR images revi ewed. All images stored on PACS. All CT scanners at this facility use dose modulation, iterative reconstruction, and/or weight based d osing when appropriate to reduce radiation dose to as low as reasonably achievable (ALARA). [facility]: Dose Right [facility]: CareDose [facility]: Dose Right [facility]: Teradose 4D [facility]: Smart Reflect Systems RADIATION DOSE: CT Rad equipment meets quality standard of care and radiation dose reduction techniq ues were employed. CTDIvol: 19.0 mGy. DLP: 1096 mGy-cm.mGy. LIMITATIONS: Patient is larger in diameter than the imaging field of view. There is beam hardening artifact over the anterior and leftward upper abdominal wall which partially obscures intra-abdominal contents FINDINGS: A nasogastric tube is present with the tip and side port in the stomach. Stomach is massi vely distended with dilute oral contrast. Duodenum, jejunum, and ileum is markedly distended down to distal 30 cm of ileum which is decompressed. There is some mesenteric inflammation along the distal ileum on axial images 52-61 at the root of mesentery. This is similar compared to 09/15/2018 and is worrisome for small bowel obstruction. This report was communicated to Dr. Ayala, 1845 hours 09/01. Colon is decompressed. No gross free intraperitoneal air or fluid. LOWER CHEST: No significant findings. No nodules or infiltrates. NON-CONTRASTED LIVER, SPLEEN, ADRENALS: Evaluation limited by lack of IV contrast. No identified sign ificant masses. PANCREAS: No masses. No peripancreatic inflammatory changes. GALLBLADDER: No identified stones by CT criteria. No inflammatory changes to suggest cholecystitis. RIGHT KIDNEY AND URETER: No suspicious masses. Assessment limited by lack of IV contrast. No signif icant calcifications. No hydronephrosis or hydroureter. LEFT KIDNEY AND URETER: No suspicious masses. Assessment limited by lack of IV contrast. No signifi cant calcifications. No hydronephrosis or hydroureter. AORTA AND RETROPERITONEUM: No aneurysm. No retroperitoneal masses or adenopathy. BOWEL AND PERITONEAL CAVITY: As above APPENDIX: Not identified. PELVIS, BLADDER, AND ABDOMINAL WALL:No abnormal masses. No free fluid. Bladder normal. BONES: No significant findings. OTHER: No other significant finding. IMPRESSION: Small bowel obstruction COMMENT: Pertinent findings on the imaging study reported as a CRITICAL RESULT to CARMEN Ortiz MD at18:45 on 09/17/2018. Category of Critical Result: Small bowel obstruction Quality ID # [id number]: Final reports with documentation of one or more dose reduction techniques (e.g., Au tomated exposure control, adjustment of the mA and/or kV according to patient size, use of iterative reconstruction technique) TECHNICAL DOCUMENTATION: JOB ID: [id number] [employer]- All Rights Reserved Reading location - IP/workstation name: [email or web address]
--- NOTE | 2018-09-17 19:18 | PDOC PROGRESS REPORT ---
Subjective Progress Note for:: 09/17/18 Subjective:: Patient had episode of atrial relation with RVR and low blood pressure requiring cardioversion by Dr. Jon. He has severe abdominal distention, CT scan of the abdomen and pelvis with oral contrast was obtained it demonstrated severe dilated bowel consistent with obstruction of the small bowel, surgical consultation is obtained Reason For Visit: ACUTE KIDNEY INJURY,PAROXYSMAL ATRIAL FIBRILLATION Physical Exam Vital Signs: Temp Pulse Resp BP Pulse Ox 97.9 F 90 17 151/83 H 97 09/17/18 15:29 09/17/18 15:29 09/17/18 15:29 09/17/18 15:29 09/17/18 15:29 Intake & Output 09/16/18 09/17/18 09/18/18 06:59 06:59 06:59 Intake Total 3395 3404 1000 Output Total 208 1300 1400 Balance 3187 2104 -400 Weight 126.6 kg 127.6 kg General appearance: PRESENT: morbidly obese Eye exam: PRESENT: PERRLA Respiratory exam: PRESENT: clear to auscultation martita Cardiovascular exam: PRESENT: irregular rhythm, +S1, +S2 GI/Abdominal exam: PRESENT: distended, soft Neurological exam: PRESENT: alert Results Laboratory Results: 09/17/18 09:48 09/17/18 09:48 09/17/18 09/17/18 09/17/18 09:20 09:48 09:48 WBC 6.4 RBC 5.09 Hgb 14.0 Hct 41.7 MCV 82 MCH 27.6 MCHC 33.7 RDW 16.5 H Plt Count 112 L Seg Neutrophils % 63.6 Lymphocytes % 15.8 Monocytes % 17.8 H Eosinophils % 2.7 Basophils % 0.1 Absolute Neutrophils 4.1 Absolute Lymphocytes 1.0 Absolute Monocytes 1.1 Absolute Eosinophils 0.2 Absolute Basophils 0.0 Carbonic Acid 1.32 HCO3/H2CO3 Ratio 17:1 ABG pH 7.34 L ABG pCO2 43.8 ABG pO2 113.8 H ABG HCO3 23.3 ABG O2 Saturation 97.9 ABG Base Excess -2.5 FiO2 40% Sodium 145.1 H Potassium 4.1 Chloride 114 H Carbon Dioxide 23 Anion Gap 8 BUN 42 H Creatinine 2.87 H Est GFR ( Amer) 27 L Est GFR (Non-Af Amer) 22 L Glucose 118 H Calcium 9.0 Magnesium 2.2 09/15/18 10:19 Catheterized Urine Urine Culture - Final NO GROWTH 2 DAYS 09/15/18 09/15/18 09/15/18 07:07 13:30 13:30 Creatine Kinase 261 H CK-MB (CK-2) 1.63 Troponin I 0.015 0.021 NT-Pro-B Natriuret Pep 239 09/15/18 09/15/18 09/17/18 20:35 20:35 09:48 Creatine Kinase 855 H 1250 H CK-MB (CK-2) 6.56 H Troponin I 0.022 NT-Pro-B Natriuret Pep 09/17/18 09:48 Creatine Kinase CK-MB (CK-2) 3.91 Troponin I < 0.012 NT-Pro-B Natriuret Pep Impressions: Renal Ultrasound 09/15/18 00:00 IMPRESSION: No evidence hydronephrosis. Abdomen/Pelvis CT 09/17/18 00:00 IMPRESSION: Small bowel obstruction Chest X-Ray 09/17/18 00:00 IMPRESSION: 1. MINIMAL LINEAR LEFT BASILAR OPACITIES LIKELY ATELECTASIS. 2. ENTERIC TUBE TIP LIKELY OVERLIES PROXIMAL STOMACH ALTHOUGH EVALUATION LIMITED. SIDE PORT NOT IDENTIFIED. KUB X-Ray 09/17/18 00:00 IMPRESSION: Small bowel obstruction. NG tube placement. Assessment & Plan - Diagnosis (1) Acute kidney injury Is this a current diagnosis for this admission?: Yes Plan: Improving with hydration (2) Acute diverticulitis Is this a current diagnosis for this admission?: Yes Plan: Continue IV antibiotic (3) Atrial fibrillation with RVR Is this a current diagnosis for this admission?: Yes (4) Morbid obesity due to excess calories Is this a current diagnosis for this admission?: Yes (5) Hypotension Qualifiers: Hypotension type: unspecified hypotension type Qualified Code(s): I95.9 - Hypotension, unspecified Is this a current diagnosis for this admission?: Yes (6) Small bowel obstruction Is this a current diagnosis for this admission?: Yes Plan: CT scan suggests obstruction of the small bowel, consultation requested from surgery
--- NOTE | 2018-09-17 21:48 | EKG REPORT ---
SEVERITY:- ABNORMAL ECG - SINUS RHYTHM BORDERLINE LEFT AXIS DEVIATION ABNRM R PROG, CONSIDER ASMI OR LEAD PLACEMENT : Confirmed by: Ana Jon MD 17-Sep-2018 21:47:51
--- NOTE | 2018-09-17 23:10 | Progress Note ---
Provider Note Provider Note: CARDIOLOGY CRITICAL CARE PROGRESS NOTE by Dr. Ana Jon on 09/17/2018. SUBJECTIVE: Early this morning I got a call from the nurse to take care of the patient that the patient went into atrial fibrillation with rapid ventricular response. He was also having respiratory difficulty. In spite of 5 mg of Lopr essor IV push, 2 doses of digoxin 0.125 mg IV push at separate times, and 5 mg of Cardizem, and the patient also being on amiodarone infusion the patient's atrial fibrillation continued with a rapid ventricular response. At one point the patient's blood pressure was beginning to drop and reached 90. Also the patient had mildl exacerbation of COPD, and also had a acute distention of the abdomen consistent with acute dilatation of the stomach and IBS/small bowel obstruction. Hence in view of this discarded significant respiratory distress to the patient in spite of the patient being on BiPAP. The patient did not want to be intubated, the patient at this time being oriented x3 and able to make a conscious informed duration. And hence the bypass was continued and in view of the atrial fibrillation and the hypotension the patient was emergently cardioverted [place] after discussion of the risks and benefits of cardioversion with the patient. In view of the acute distention of the abdomen and NG tube was placed. A portable KUB showed that there was indeed acute dilatation of the stomach [acute gastric dilatation] which was decompressed after the NG tube was placed personally by me. Surgical consult was requested. Subsequent to this the patient stabilized. The patient was placed on IV fluids and kept n.p.o. with NG tube to low intermittent suction. Antibiotics continued. Continue the patient on amiodarone drip. The patient denies any chest pain or discomfort. The patient had no PND orthopnea. There is no leg edema. There is no ventricular arrhythmia seen on the monitor. There is no TIA CVA symptoms. There is no firing of his AICD. PHYSICAL EXAMINATION: The patient is morbidly obese post cardioversion the patient feels much better and denies any shortness of breath or chest pain or discomfort. Selected Entries 09/17/18 09/17/18 09/17/18 07:32 07:43 08:00 Temperature 99.4 F Temperature Axillary Source Pulse Rate 61 160 H Heart Rate ( 176 Monitors) Respiratory 21 H Rate Blood Pressure 126/80 H 111/92 H BP Location Left Arm BP Position Supine O2 Sat by Pulse 98 Oximetry Oxygen Delivery Method ( includes room air) Oxygen Delivery Bipap Method Percent of Oxygen Arrhythmia Afib Rhythm Status 09/17/18 09/17/18 09/17/18 08:15 08:43 08:55 Temperature Temperature Source Pulse Rate 158 H 126 H Heart Rate ( Monitors) Respiratory Rate Blood Pressure 96/62 L BP Location BP Position O2 Sat by Pulse Oximetry Oxygen Delivery Method ( includes room air) Oxygen Delivery Method Percent of Oxygen Arrhythmia Rhythm Status 09/17/18 09/17/18 10:00 10:45 Temperature Temperature Source Pulse Rate 96 Heart Rate ( Monitors) Respiratory Rate Blood Pressure 108/69 BP Location BP Position O2 Sat by Pulse Oximetry Oxygen Delivery Bi-pap Method ( includes room air) Oxygen Delivery Method Percent of 40 Oxygen Arrhythmia Rhythm Status HEAD: Is atraumatic normocephalic. EYES: Pupils are equal round regular reactive light accommodation. Extraocular movements are normal. There is no conjunctival pallor. There is no scleral icterus. EARS: Tympanic memories are intact. External auditory canals are clear. NOSE: There is no deviated nasal septum. There is no inflammation of the nasal mucous membrane. MOUTH: Mucous membranes of mouth are moist. Tongue is moist. There is no ulcers there is no bleeding from the gums. Throat: There is no redness of the oropharynx. There is no exudates. SKIN: There is no skin rashes or skin lesions. There is no petechia or ecchymosis. NECK: Supple. There is no JVD. Carotids are equal there is no bruit. There is no accessory muscles of respiration use. Trachea central. LUNGS: There is diminished air entry prolonged expiration. There is a few scattered rhonchi. There is no wheezing or rales. On percussion there is hyperresonance. On palpation there is no chest wall tenderness. HEART: S1-S2 is heard S1 is of normal intensity. There is no S3 gallop there is no S4 gallop. There is systolic murmur left sternal border and the apex there is no rub. ABDOMEN: Is soft. There is mild discomfort on palpating the abdomen. There is mild abdominal distention. Bowel sounds are slightly diminished. There is no rebound guarding or rigidity. There is no hepatosplenomegaly. Bowel sounds are well heard. Extremities: Femorals are diminished there is no femoral bruits. Leg pulses are diminished. THERE IS NO PEDAL EDEMA. THERE IS NO DVT OR CELLULITIS. THERE IS NO CALF TENDERNESS. PEDIATRIC NP: The patient is conscious awake alert oriented x3 with no focal deficits. The patient has dysarthria. PSYCHIATRIC: At present the patient judgment insight are intact his affect is normal.. Labs- All tests 24 hr 09/17/18 09/17/18 09/17/18 09:20 09:48 09:48 WBC 6.4 RBC 5.09 Hgb 14.0 Hct 41.7 MCV 82 MCH 27.6 MCHC 33.7 RDW 16.5 H Plt Count 112 L Seg Neutrophils % 63.6 Lymphocytes % 15.8 Monocytes % 17.8 H Eosinophils % 2.7 Basophils % 0.1 Absolute Neutrophils 4.1 Absolute Lymphocytes 1.0 Absolute Monocytes 1.1 Absolute Eosinophils 0.2 Absolute Basophils 0.0 Carbonic Acid 1.32 HCO3/H2CO3 Ratio 17:1 ABG pH 7.34 L ABG pCO2 43.8 ABG pO2 113.8 H ABG HCO3 23.3 ABG Total CO2 24.6 ABG O2 Saturation 97.9 ABG Base Excess -2.5 FiO2 40% Sodium 145.1 H Potassium 4.1 Chloride 114 H Carbon Dioxide 23 Anion Gap 8 BUN 42 H Creatinine 2.87 H Est GFR ( Amer) 27 L Est GFR (Non-Af Amer) 22 L Glucose 118 H POC Glucose Calcium 9.0 Magnesium 2.2 Creatine Kinase 1250 H CK-MB (CK-2) Troponin I 09/17/18 09/18/18 09:48 00:31 WBC RBC Hgb Hct MCV MCH MCHC RDW Plt Count Seg Neutrophils % Lymphocytes % Monocytes % Eosinophils % Basophils % Absolute Neutrophils Absolute Lymphocytes Absolute Monocytes Absolute Eosinophils Absolute Basophils Carbonic Acid HCO3/H2CO3 Ratio ABG pH ABG pCO2 ABG pO2 ABG HCO3 ABG Total CO2 ABG O2 Saturation ABG Base Excess FiO2 Sodium Potassium Chloride Carbon Dioxide Anion Gap BUN Creatinine Est GFR ( Amer) Est GFR (Non-Af Amer) Glucose POC Glucose 89 Calcium Magnesium Creatine Kinase CK-MB (CK-2) 3.91 Troponin I < 0.012 Renal Ultrasound 09/15/18 00:00 IMPRESSION: No evidence hydronephrosis. Chest X-Ray 09/15/18 07:05 IMPRESSION: No acute disease. Abdomen/Pelvis CT 09/15/18 08:37 IMPRESSION: 1. There is a focal area of inflammatory changes associated with the bowel just to the left of the midline as described. Possible diverticulitis. 2. Considerable fluid is present in the bowel. Cannot exclude an enteritis. Abdomen/Pelvis CT 09/17/18 00:00 IMPRESSION: Small bowel obstruction Chest X-Ray 09/17/18 00:00 IMPRESSION: 1. MINIMAL LINEAR LEFT BASILAR OPACITIES LIKELY ATELECTASIS. 2. ENTERIC TUBE TIP LIKELY OVERLIES PROXIMAL STOMACH ALTHOUGH EVALUATION LIMITED. SIDE PORT NOT IDENTIFIED. KUB X-Ray 09/17/18 00:00 IMPRESSION: Small bowel obstruction. NG tube placement. In addition my impression is that the patient had acute gastric dilatation, which was decompressed after the NG tube placement. EKG post cardioversion:SINUS RHYTHM BORDERLINE LEFT AXIS DEVIATION ABNRM R PROG, CONSIDER ASMI OR LEAD PLACEMENT Pressure/recommendation: 1. Recurrent atrial fibrillation with rapid ventricular response, and transient hypotension. Initially the patient blood pressure was stable. The patient was given Lopressor 5 mg IV push x1 digoxin 0.125 mg IV push and 2 different doses, and also Cardizem 5 mg IV push. In spite of this the patient continued to have atrial fibrillation with rapid ventricular response, and started becoming hypotensive. He also had respiratory distress due to not only atrial fibrillation with rapid ventricular response, but also due to acute gastric dilatation and also IBS causing respiratory embarrassment, and also exacerbation of his COPD. Hence patient emergently cardioverted to sinus rhythm. Continue amiodarone infusion: Later we will start the patient on Eliquis 2.5 mg p.o. twice daily after discussions with the law clerk and the surgical history of make sure it is safe for the patient to be started on this. 2. Acute gastric dilatation and ileus. The acute gastric dilatation was immediately brought to resolution with placement of NG tube and in view of the patient's ileus/small bowel obstruction continue NG tube to suction. Ice chips, otherwise n.p.o. Will get surgical consult 3. Possibly mild exacerbation of COPD: At present seems to be stable. Continue the patient on antibiotics and respiratory treatments. Continue BiPAP. Note that the patient did not want to be intubated, but there was a time it was thought that the patient was having significant significant respiratory depression and his saturations were beginning to fall. 4. Acute renal failure/injury: Nephrology on the case. Most likely secondary to infection and dehydration and atrial fibrillation with rapid ventricular response. Would recommend hydrating the patient and following nephrology advice. In view of the patient's multisystem insult that occurred today I agree with nephrology opinion that the renal function could deteriorate further. 4. Hypertension: Blood pressure stable. Earlier the patient was hypotensive with systolic pressure of blood pressure in the 90s requiring emergent cardioversion of the atrial fibrillation with rapid ventricular response. Subsequently the patient blood pressure now is stable. 5. Coronary artery disease: Patient stable with no anginal symptoms, in spite of the patient having atrial fibrillation with rapid ventricular response. Also the patient has no evidence of non-ST elevation ID. 6. Acute abdomen with possible diverticulitis and enteritis. Continue antibiotics. Continue IV fluids 7. History of asthma/COPD: Continue anti-COPD treatment. 8. Obstructive sleep apnea: Continue BiPAP instructed patient the importance of using BiPAP. 9. Cardiomyopathy: No evidence of heart failure. 10. AICD placement: No firing of AICD. Note that the AICD was interrogated and data sent remotely to the [employer] ([employer]). The pacemaker function is normal. There is been no recent AICD shocks. 11. History of depression schizoaffective disorder and posttraumatic stress disorder. MEDICATIONS reviewed. Medications adjusted. Management plan discussed with attending physician on the case. Medical decision making is of high complexity. 80 minutes spent on this patient with more than 80% time spent in direct patient care. Will discuss with the surgicalist. Will follow. Discussed the patient's condition with the patient's on the telephone.
--- NOTE | 2018-09-17 23:13 | Progress Note ---
Provider Note Provider Note: PROCEDURE note by Dr. Ana Dawn on 09/17/2018. PROCEDURE: Emergent synchronized DC cardioversion of atrial fibrillation with rapid ventricular response and hypotension. DIGITAL PRINT OPERATOR: Dr. Ana Jon. TISSUE REMOVED: None BLOOD LOSS: None PROCEDURE: In view of the patient's increasing shortness of breath and atrial fibrillation with rapid ventricular response and hypotension, there was a need for emergent DC cardioversion. The patient in spite of his low blood pressure was still awak e. And was aware and informed consent was obtained. Pacer pads were placed appropriately on the left front of the chest. After the patient got Versed and the patient was sedated the patient was given a synchronized biphasic DC shock of 200 J. The patient converted to sinus rhythm. Subsequent to the procedure the patient was conscious awake and awakened from his sedation from Versed. He was able to move all 4 extremities. And hence there was no evidence of CVA. Subsequent to the patient coming back into sinus rhythm the patient's blood pressure came up to 118/86. IMPRESSION: Successful emergency DC cardioversion of unstable atrial fibrillation to sinus rhythm.
--- NOTE | 2018-09-18 00:43 | PDOC CONSULTATION ---
Consultation Consult Date: 09/18/18 Consult reason:: Small Bowel obstruction on CT scan History of Present Illness Admission Date/PCP: 09/15/18 08:48 CARMEN GANT MD Patient complains of: abdominal pains History of Present Illness: KRISH RAMOS JR is a 63 year old male who was admitted on 09/15 for abdominal pains. Noted AFIB with RVR and nonresponsive to meds and therefore cardioverted. This morning AFIB recurred and again not responsive to medications and therefore cardioverted with HR now normal sinus. Had a CT scan of abd/pelvis which showed SBO. Past Medical History Cardiac Medical History: Reports: Atrial Fibrillation, Congestive Heart Failure, Coronary Artery Disease, Myocardial Infarction, Hyperlipidema, Hypertension, Peripheral Vascular Disease Pulmonary Medical History: Reports: Asthma, Bronchitis, Chronic Obstructive Pulmonary Disease (COPD), Pneumonia - X2, Sleep Apnea - Previously used CPAP 2-3 years ago but has not been since Endocrine Medical History: Reports: Diabetes Mellitus Type 2 GI Medical History: Reports: Gastroesophageal Reflux Disease, Hiatal Hernia Musculoskeltal Medical History: Reports: Arthritis Psychiatric Medical History: Reports: Depression, Post Traumatic Stress Disorder , Schizoaffective Disorder Hematology: Reports: Anemia - ON IRON PILLS Past Surgical History Past Surgical History: Reports: Herniorrhaphy, Pacemaker - Pacemaker defibrillator, Other - Penile procedure for erectile dysfunction Social History Lives with: Spouse/Significant other Smoking Status: Never Smoker Frequency of Alcohol Use: None Hx Recreational Drug Use: No Drugs: None Hx Prescription Drug Abuse: No Family History Family History: Arthritis, CAD, CVA, DM, Hyperlipidemia, Hypertension, Malignancy Parental Family History Reviewed: Yes Children Family History Reviewed: No Sibling(s) Family History Reviewed.: No Medication/Allergy Home Medications: RX: Albuterol Sulfate [Proair HFA Inhalation Aerosol 8.5 gm MDI] 2 puff IH Q6HP PRN 10/02/17 RX: Aripiprazole [Abilify 30 mg Tablet] 30 mg PO QHS 10/02/17 RX: Budesonide/Formoterol Fumarate [Symbicort 160-4.5 Mcg Inhaler] 2 puff IH Q12 10/02/17 RX: Clonazepam [Klonopin 1 mg Tablet] 1 mg PO Q12 10/02/17 RX: Fluticasone Propionate [Flonase Nasal [place] 50 Mcg/[place] 16 gm] 1 spray NAREB BID 10/02/17 RX: Lisinopril [Prinivil 10 mg Tablet] 40 mg PO DAILY 10/02/17 RX: Metoprolol Tartrate [Lopressor 50 mg Tablet] 50 mg PO Q12 10/02/17 Amlodipine Besylate [Norvasc 10 mg Tablet] 10 mg PO DAILY 09/15/18 Atorvastatin Calcium [Lipitor 80 mg Tablet] 80 mg PO QHS 09/15/18 Benztropine Mesylate [Cogentin 1 mg Tablet] 1 mg PO Q12 09/15/18 Cyanocobalamin (Vitamin B-12) [Vitamin B-12 1000 Mcg Tablet] 1,000 mcg PO DAILY 09/15/18 Dofetilide [Tikosyn] 250 mcg PO Q12 09/15/18 Furosemide [Lasix 40 mg Tablet] 40 mg PO QAM 09/15/18 Isosorbide Mononitrate [Imdur 30 mg Tablet.er] 30 mg PO DAILY 09/15/18 Magnesium Oxide [Mag-Ox 400 mg Tablet] 400 mg PO DAILY 09/15/18 Paroxetine HCl [Paxil 20 mg Tablet] 20 mg PO DAILY 09/15/18 RX: Omeprazole 20 mg PO BIDACBS 09/15/18 Rivaroxaban [Xarelto 10 mg Tablet] 10 mg PO [id number] 09/15/18 Tamsulosin HCl [Flomax 0.4 mg Cap.sr] 0.4 mg PO DAILY 09/15/18 Allergies/Adverse Reactions: latex [Latex] Allergy (Severe, Verified 11/15/17 11:14) WHITTAKER SKIN Review of Systems Constitutional: PRESENT: as per HPI Eyes: PRESENT: other - no visual/hearing changes Gastrointestinal: PRESENT: abdominal pain Physical Exam Vital Signs: Temp Pulse Resp BP Pulse Ox 98.9 F 92 24 H 103/82 99 09/17/18 19:38 09/17/18 20:07 09/17/18 23:44 09/17/18 20:07 09/17/18 23:44 Intake & Output 09/16/18 09/17/18 09/18/18 06:59 06:59 06:59 Intake Total 3395 3404 1536 Output Total 208 1300 1400 Balance 3187 2104 136 Weight 126.6 kg 127.6 kg General appearance: PRESENT: no acute distress Head exam: PRESENT: atraumatic Eye exam: PRESENT: conjunctiva pink Mouth exam: PRESENT: dry mucosa Cardiovascular exam: PRESENT: RRR Pulses: PRESENT: normal radial pulses Vascular exam: PRESENT: normal capillary refill GI/Abdominal exam: PRESENT: soft - non tender. Slightly distended Rectal exam: PRESENT: deferred Neurological exam: PRESENT: alert, oriented to person, oriented to place, oriented to time, oriented to situation Psychiatric exam: PRESENT: appropriate affect Skin exam: PRESENT: normal color, warm Results Laboratory Results: 09/17/18 09:48 09/17/18 09:48 09/17/18 09/17/18 09/17/18 09:20 09:48 09:48 WBC 6.4 RBC 5.09 Hgb 14.0 Hct 41.7 MCV 82 MCH 27.6 MCHC 33.7 RDW 16.5 H Plt Count 112 L Seg Neutrophils % 63.6 Lymphocytes % 15.8 Monocytes % 17.8 H Eosinophils % 2.7 Basophils % 0.1 Absolute Neutrophils 4.1 Absolute Lymphocytes 1.0 Absolute Monocytes 1.1 Absolute Eosinophils 0.2 Absolute Basophils 0.0 Carbonic Acid 1.32 HCO3/H2CO3 Ratio 17:1 ABG pH 7.34 L ABG pCO2 43.8 ABG pO2 113.8 H ABG HCO3 23.3 ABG O2 Saturation 97.9 ABG Base Excess -2.5 FiO2 40% Sodium 145.1 H Potassium 4.1 Chloride 114 H Carbon Dioxide 23 Anion Gap 8 BUN 42 H Creatinine 2.87 H Est GFR ( Amer) 27 L Est GFR (Non-Af Amer) 22 L Glucose 118 H Calcium 9.0 Magnesium 2.2 09/15/18 10:19 Catheterized Urine Urine Culture - Final NO GROWTH 2 DAYS 09/15/18 09/15/18 09/15/18 07:07 13:30 13:30 Creatine Kinase 261 H CK-MB (CK-2) 1.63 Troponin I 0.015 0.021 NT-Pro-B Natriuret Pep 239 09/15/18 09/15/18 09/17/18 20:35 20:35 09:48 Creatine Kinase 855 H 1250 H CK-MB (CK-2) 6.56 H Troponin I 0.022 NT-Pro-B Natriuret Pep 09/17/18 09:48 Creatine Kinase CK-MB (CK-2) 3.91 Troponin I < 0.012 NT-Pro-B Natriuret Pep Impressions: Renal Ultrasound 09/15/18 00:00 IMPRESSION: No evidence hydronephrosis. Abdomen/Pelvis CT 09/17/18 00:00 IMPRESSION: Small bowel obstruction Chest X-Ray 09/17/18 00:00 IMPRESSION: 1. MINIMAL LINEAR LEFT BASILAR OPACITIES LIKELY ATELECTASIS. 2. ENTERIC TUBE TIP LIKELY OVERLIES PROXIMAL STOMACH ALTHOUGH EVALUATION LI MITED. SIDE PORT NOT IDENTIFIED. KUB X-Ray 09/17/18 00:00 IMPRESSION: Small bowel obstruction. NG tube placement. Assessment & Plan - Diagnosis (1) Acute gastric dilatation Is this a current diagnosis for this admission?: Yes (2) Abdominal pain Qualifiers: Abdominal location: generalized Qualified Code(s): R10.84 - Generalized abdominal pain Is this a current diagnosis for this admission?: Yes (3) Ileus Is this a current diagnosis for this admission?: Yes - Time Time Spent: 30 to 50 Minutes - Inpatient Certification Medical Necessity: Need Close Monitoring Due to Risk of Patient Decompensation, Need For IV Fluids, Risk of Complication if Not Cared For in Hospital - Plan Summary Plan Summary: Patient just passed Flatus just prior to being seen tonight. Claims feel more comfortable. NGT drained about a liter of dark greenish fluid. It appears that patient has ileus rather than obstruction. Recommendation: 1) Repeat lytes in am 2) D/C NGT this am if continues to pass flatus and NGT drainage decreases. 3) If does not show further improvement today then can order SBFT with gastrograffin via NGT to check transition site and possibly therapeutic for SBO $) Will follow
[2018-09-18] MEDS: CEFTRIAXONE SODIUM 1,000 MG in DEXTROSE 5%-WATER 50 ML IV SCH (00:52)
[2018-09-18] MEDS: METRONIDAZOLE 500 MG/NS RTU 500 MG/100 ML RTUPB IV SCH ×5 (01:00→22:26)
[2018-09-18] MEDS: HYDROCORTISONE ACETATE 25 MG SUPP.RECT PR PRN (06:32)
[2018-09-18 06:43] LABS: ALANINE AMINOTRANSFERASE 23 U/L (21-72); ALBUMIN 2.9 g/dL (3.5-5.0); ALKALINE PHOSPHATASE 71 U/L (38-126); ANION GAP 8 (5-19); ASPARTATE AMINO TRANSFERASE 28 U/L (17-59); BILIRUBIN,DIRECT 0.4 mg/dL (0.0-0.4); BILIRUBIN,TOTAL 0.9 mg/dL (0.2-1.3); BLOOD UREA NITROGEN 27 mg/dL (7-20); CALCIUM 8.7 mg/dL (8.4-10.2); CARBON DIOXIDE 26 mmol/L (22-30); CHLORIDE 114 mmol/L (98-107); GLUCOSE 115 mg/dL (75-110); POTASSIUM 3.8 mmol/L (3.6-5.0); SODIUM 147.8 mmol/L (137-145); TOTAL PROTEIN 5.9 g/dL (6.3-8.2)
[2018-09-18] MEDS: DEXTROSE 5%-WATER 500 ML with AMIODARONE HCL 900 MG IV PRN ×2 (09:10)
--- NOTE | 2018-09-18 10:46 | PDOC PROGRESS REPORT ---
Subjective Progress Note for:: 09/18/18 Subjective:: Patient is doing fine today. He continues to be in normal sinus rhythm on amiodarone drip. He is currently not on BiPAP anymore. He still has an NG tube. Surgery evaluated him and diagnosed him with possible just ileus instead of small bowel obstruction. No surgical intervention is being planned yet. Patient informs me that he actually lives in [place] and he is just visiting her his [id number] here in [place] when he gets sick. He was telling me he wanted to go home and I kept explaining to him that he is not well enough to go home yet. He was begging to drink some fluids which I tried to explain to him it is not time for him to take anything by mouth yet. He seems to not understand fully the seriousness and severity of his condition. However I did my best to explain it to him. He continues to make good urine output via the Ald[place] catheter. It still minimally blood-tinged but not as bad as previous. Reason For Visit: ACUTE KIDNEY INJURY,PAROXYSMAL ATRIAL FIBRILLATION Physical Exam Vital Signs: Temp Pulse Resp BP Pulse Ox 98.4 F 92 20 124/91 H 96 09/18/18 07:58 09/18/18 07:58 09/18/18 07:58 09/18/18 07:58 09/18/18 07:58 Intake & Output 09/17/18 09/18/18 09/19/18 06:59 06:59 06:59 Intake Total 3404 1850 Output Total 1300 2200 Balance 2104 -350 Weight 127.6 kg 128 kg Exam: General appearance: PRESENT: no acute distress, cooperative, well-developed, well-nourished Head exam: PRESENT: atraumatic, normocephalic, NG tube in place Eye exam: PRESENT: conjunctiva slightly pale, PERRLA. ABSENT: scleral icterus Neck exam: ABSENT: JVD Respiratory exam: PRESENT: Diminished breath sounds. ABSENT: crackles, rales, rhonchi, unlabored, wheezes Cardiovascular exam: PRESENT: Regular rate rhythm -+S1, +S2. ABSENT: diastolic murmur, systolic murmur GI/Abdominal exam: PRESENT: Hypoactive bowel sounds, is still distended but softer ABSENT: guarding, mass, tenderness Extremities exam: ABSENT: No edema Neurological exam: PRESENT: alert, awake, oriented to person, place and time. Skin exam: PRESENT: dry, warm, Results Laboratory Results: 09/17/18 09:48 09/18/18 05:40 09/18/18 05:40 Sodium 147.8 H Potassium 3.8 Chloride 114 H Carbon Dioxide 26 Anion Gap 8 BUN 27 H Creatinine 1.86 H Est GFR ( Amer) 44 L Est GFR (Non-Af Amer) 37 L Glucose 115 H Calcium 8.7 Total Bilirubin 0.9 AST 28 ALT 23 Alkaline Phosphatase 71 Total Protein 5.9 L Albumin 2.9 L 09/15/18 10:19 Catheterized Urine Urine Culture - Final NO GROWTH 2 DAYS 09/15/18 09/15/18 09/15/18 07:07 13:30 13:30 Creatine Kinase 261 H CK-MB (CK-2) 1.63 Troponin I 0.015 0.021 NT-Pro-B Natriuret Pep 239 09/15/18 09/15/18 09/17/18 20:35 20:35 09:48 Creatine Kinase 855 H 1250 H CK-MB (CK-2) 6.56 H Troponin I 0.022 NT-Pro-B Natriuret Pep 09/17/18 09:48 Creatine Kinase CK-MB (CK-2) 3.91 Troponin I < 0.012 NT-Pro-B Natriuret Pep Impressions: Renal Ultrasound 09/15/18 00:00 IMPRESSION: No evidence hydronephrosis. Abdomen/Pelvis CT 09/17/18 00:00 IMPRESSION: Small bowel obstruction Chest X-Ray 09/17/18 00:00 IMPRESSION: 1. MINIMAL LINEAR LEFT BASILAR OPACITIES LIKELY ATELECTASIS. 2. ENTERIC TUBE TIP LIKELY OVERLIES PROXIMAL STOMACH ALTHOUGH EVALUATION LIMITED. SIDE PORT NOT IDENTIFIED. KUB X-Ray 09/17/18 00:00 IMPRESSION: Small bowel obstruction. NG tube placement. Assessment & Plan - Diagnosis (1) Acute kidney injury Is this a current diagnosis for this admission?: Yes Plan: Likely initially due to prerenal azotemia which could have progressed to acute tubular necrosis with acute onset of atrial fibrillation and rapid ventricular response requiring acute cardioversion. Patient is currently nonoliguric. His kidney function continues to improve surprisingly despite the event yesterday morning. There is no indication for any urgent or emergent renal replacement therapy. Continue to monitor the patient's kidney function. Continue maintenance fluids while n.p.o. We will change it to 5.45 normal saline today. (2) Atrial fibrillation Qualifiers: Atrial fibrillation type: unspecified Qualified Code(s): I48.91 - Unspecified atrial fibrillation Is this a current diagnosis for this admission?: Yes Plan: Status post cardioversion twice. Currently in normal sinus rhythm on amiodarone drip. Cardiology following. (3) Ileus Is this a current diagnosis for this admission?: Yes (4) Abdominal pain Qualifiers: Abdominal location: generalized Qualified Code(s): R10.84 - Generalized abdominal pain Is this a current diagnosis for this admission?: Yes Plan: Due to ileus per surgery. Surgicalist is following. (5) Hypernatremia Is this a current diagnosis for this admission?: Yes Plan: Mild secondary to relative dehydration and normal saline. We will change IV fluids to half-normal saline. (6) CAD (coronary artery disease) Qualifiers: Coronary Disease-Associated Artery/Lesion type: [place] artery [place] vs. transplanted heart: [place] heart Associated angina: without angina Qualified Code(s): I25.10 - Atherosclerotic heart disease of [place] coronary artery without angina pectoris Is this a current diagnosis for this admission?: Yes (7) Respiratory failure Qualifiers: Chronicity: acute Respiratory failure complication: hypoxia Qualified Code(s): J96.01 - Acute respiratory failure with hypoxia Is this a current diagnosis for this admission?: Yes Plan: Currently off the BiPAP and breathing fine. - Time Time with patient: 15-25 minutes
[2018-09-18] MEDS: 1/2 NORMAL SALINE 1,000 ML IV PRN (11:48)
--- NOTE | 2018-09-18 11:59 | PDOC PROGRESS REPORT ---
Subjective Progress Note for:: 09/18/18 Subjective:: no pains.Thirsty Reason For Visit: ACUTE KIDNEY INJURY,PAROXYSMAL ATRIAL FIBRILLATION Physical Exam Vital Signs: Temp Pulse Resp BP Pulse Ox 98.4 F 92 20 124/91 H 96 09/18/18 07:58 09/18/18 07:58 09/18/18 07:58 09/18/18 07:58 09/18/18 07:58 Intake & Output 09/17/18 09/18/18 09/19/18 06:59 06:59 06:59 Intake Total 3404 1850 Output Total 1300 2200 Balance 2104 -350 Weight 127.6 kg 128 kg Exam: NGT about 400 ccs since 7 am about 5 hrs. Denies Flatus Abd is soft, non tender, tympanitic, still distended Results Laboratory Results: 09/17/18 09:48 09/18/18 05:40 09/18/18 05:40 Sodium 147.8 H Potassium 3.8 Chloride 114 H Carbon Dioxide 26 Anion Gap 8 BUN 27 H Creatinine 1.86 H Est GFR ( Amer) 44 L Est GFR (Non-Af Amer) 37 L Glucose 115 H Calcium 8.7 Total Bilirubin 0.9 AST 28 ALT 23 Alkaline Phosphatase 71 Total Protein 5.9 L Albumin 2.9 L 09/15/18 10:19 Catheterized Urine Urine Culture - Final NO GROWTH 2 DAYS 09/15/18 09/15/18 09/15/18 07:07 13:30 13:30 Creatine Kinase 261 H CK-MB (CK-2) 1.63 Troponin I 0.015 0.021 NT-Pro-B Natriuret Pep 239 09/15/18 09/15/18 09/17/18 20:35 20:35 09:48 Creatine Kinase 855 H 1250 H CK-MB (CK-2) 6.56 H Troponin I 0.022 NT-Pro-B Natriuret Pep 09/17/18 09:48 Creatine Kinase CK-MB (CK-2) 3.91 Troponin I < 0.012 NT-Pro-B Natriuret Pep Impressions: Renal Ultrasound 09/15/18 00:00 IMPRESSION: No evidence hydronephrosis. Abdomen/Pelvis CT 09/17/18 00:00 IMPRESSION: Small bowel obstruction Chest X-Ray 09/17/18 00:00 IMPRESSION: 1. MINIMAL LINEAR LEFT BASILAR OPACITIES LIKELY ATELECTASIS. 2. ENTERIC TUBE TIP LIKELY OVERLIES PROXIMAL STOMACH ALTHOUGH EVALUATION LIMITED. SIDE PORT NOT IDENTIFIED. KUB X-Ray 09/17/18 00:00 IMPRESSION: Small bowel obstruction. NG tube placement. Assessment & Plan - Diagnosis (1) Acute gastric dilatation Is this a current diagnosis for this admission?: Yes (2) Abdominal pain Qualifiers: Abdominal location: generalized Qualified Code(s): R10.84 - Generalized abdominal pain Is this a current diagnosis for this admission?: Yes (3) Ileus Is this a current diagnosis for this admission?: Yes - Time Time Spent with patient: 15-24 minutes - Plan Summary Plan Summary: Will empty NGT cannister and check drainage next 2 hrs Re-evaluate later and decide on Small bowel series with gastrograffin He remains afebrile,normal WBC and no pains. Likely has ileus than obstruction
--- NOTE | 2018-09-18 20:11 | RADIOLOGY REPORT (SQ) ---
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 No pneumatosis. No colonic distention. Immediate view (1549): Contrast in the stomach. One hour 2 views (1654): Contrast in the stomach, duodenum, and a few moderately distended proximal small bowel segments. 3 hours, 2 views (1906): Small amount of contrast material in markedly distended proximal small bowel segments. Much of the contrast remains in the stomach. IMPRESSION: 1. At 3 hours, much of the contrast remains in the stomach. If clinically feasible, consider positioning patient on the right side to facilitate emptying of the stomach and better opacification of the small bowel. If this can be done, consider additional follow-up radiographs in several hours. 2. There is a small amount of contrast in several distended small bowel segments, likely small bowel obstruction. However, there is not adequate opacification to determine the transition point.
--- NOTE | 2018-09-18 21:38 | PDOC PROGRESS REPORT ---
Subjective Progress Note for:: 09/18/18 Subjective:: Patient was seen by the bedside the abdomen remains very distended, he was seen by the surgeon, he felt that this is probably ileus and not obstruction, he requested Gastrografin small bowel series, final result pending. Reason For Visit: ACUTE KIDNEY INJURY,PAROXYSMAL ATRIAL FIBRILLATION Physical Exam Vital Signs: Temp Pulse Resp BP Pulse Ox 98.0 F 96 25 H 139/95 H 95 09/18/18 19:26 09/18/18 19:26 09/18/18 19:26 09/18/18 19:26 09/18/18 19:26 Intake & Output 09/17/18 09/18/18 09/19/18 06:59 06:59 06:59 Intake Total 3404 1900 100 Output Total 1300 2200 1125 Balance 2104 -300 -1025 Weight 127.6 kg 128 kg General appearance: PRESENT: no acute distress Eye exam: PRESENT: PERRLA Respiratory exam: PRESENT: clear to auscultation martita Cardiovascular exam: PRESENT: +S1, +S2 GI/Abdominal exam: PRESENT: distended, soft Neurological exam: PRESENT: alert Results Laboratory Results: 09/17/18 09:48 09/18/18 05:40 09/18/18 05:40 Sodium 147.8 H Potassium 3.8 Chloride 114 H Carbon Dioxide 26 Anion Gap 8 BUN 27 H Creatinine 1.86 H Est GFR ( Amer) 44 L Est GFR (Non-Af Amer) 37 L Glucose 115 H Calcium 8.7 Total Bilirubin 0.9 AST 28 ALT 23 Alkaline Phosphatase 71 Total Protein 5.9 L Albumin 2.9 L 09/15/18 09/15/18 09/15/18 07:07 13:30 13:30 Creatine Kinase 261 H CK-MB (CK-2) 1.63 Troponin I 0.015 0.021 NT-Pro-B Natriuret Pep 239 09/15/18 09/15/18 09/17/18 20:35 20:35 09:48 Creatine Kinase 855 H 1250 H CK-MB (CK-2) 6.56 H Troponin I 0.022 NT-Pro-B Natriuret Pep 09/17/18 09:48 Creatine Kinase CK-MB (CK-2) 3.91 Troponin I < 0.012 NT-Pro-B Natriuret Pep Impressions: Renal Ultrasound 09/15/18 00:00 IMPRESSION: No evidence hydronephrosis. Abdomen/Pelvis CT 09/17/18 00:00 IMPRESSION: Small bowel obstruction Chest X-Ray 09/17/18 00:00 IMPRESSION: 1. MINIMAL LINEAR LEFT BASILAR OPACITIES LIKELY ATELECTASIS. 2. ENTERIC TUBE TIP LIKELY OVERLIES PROXIMAL STOMACH ALTHOUGH EVALUATION LIMITED. SIDE PORT NOT IDENTIFIED. KUB X-Ray 09/17/18 00:00 IMPRESSION: Small bowel obstruction. NG tube placement. Small Bowel X-Ray 09/18/18 00:00 IMPRESSION: 1. At 3 hours, much of the contrast remains in the stomach. If clinically feasible, consider positioning patient on the right side to facilitate emptying of the stomach and better opacification of the small bowel. If this can be done, consider additional follow-up radiographs in several hours. 2. There is a small amount of contrast in several distended small bowel segments, likely small bowel obstruction. However, there is not adequate opacification to determine the transition point. Assessment & Plan - Diagnosis (1) Acute kidney injury Is this a current diagnosis for this admission?: Yes Plan: Improving with hydration (2) Acute diverticulitis Is this a current diagnosis for this admission?: Yes (3) Atrial fibrillation with RVR Is this a current diagnosis for this admission?: Yes Plan: Controlled on present regimen (4) Morbid obesity due to excess calories Is this a current diagnosis for this admission?: Yes (5) Hypotension Qualifiers: Hypotension type: unspecified hypotension type Qualified Code(s): I95.9 - Hypotension, unspecified Is this a current diagnosis for this admission?: Yes (6) Small bowel obstruction Is this a current diagnosis for this admission?: Yes Plan: NG tube still in place surgery following
[2018-09-19] MEDS: METRONIDAZOLE 500 MG/NS RTU 500 MG/100 ML RTUPB IV SCH ×5 (00:36→23:09)
[2018-09-19] MEDS: 1/2 NORMAL SALINE 1,000 ML IV PRN (02:54)
[2018-09-19 06:56] LABS: ANION GAP 8 (5-19); BLOOD UREA NITROGEN 21 mg/dL (7-20); CARBON DIOXIDE 29 mmol/L (22-30); CHLORIDE 114 mmol/L (98-107); GLUCOSE 97 mg/dL (75-110); POTASSIUM 3.7 mmol/L (3.6-5.0); SODIUM 150.6 mmol/L (137-145)
[2018-09-19] MEDS: CEFTRIAXONE SODIUM 1,000 MG in DEXTROSE 5%-WATER 50 ML IV SCH (09:21)
[2018-09-19] MEDS: DEXTROSE 5%-WATER 1000 ML 1,000 ML IV PRN ×2 (09:22→21:35)
[2018-09-19] MEDS: HYDROCORTISONE ACETATE 25 MG SUPP.RECT PR PRN (09:41)
--- NOTE | 2018-09-19 10:41 | RADIOLOGY REPORT (SQ) ---
EXAM DESCRIPTION: KUB/ABDOMEN (SINGLE VIEW) COMPLETED DATE/TIME: 09/19/2018 10:31 am REASON FOR STUDY: f/u small bowel series COMPARISON: None. NUMBER OF VIEWS: One view. TECHNIQUE: Supine radiographic image of the abdomen acquired. LIMITATIONS: None. FINDINGS: BOWEL GAS PATTERN: Persistent dilated small bowel loops. Transition point is not evident. CALCIFICATIONS: No suspicious calcifications. SOFT TISSUES: No gross mass or suggestion of organomegaly. HARDWARE: An NG tube remains in place in the stomach. BONES: No acute fracture. No worrisome bone lesions. OTHER: No other significant finding. IMPRESSION: Small bowel obstruction. TECHNICAL DOCUMENTATION: JOB ID: [id number] [employer]- All Rights Reserved Reading location - IP/workstation name: [email or web address]
--- NOTE | 2018-09-19 12:39 | PDOC PROGRESS REPORT ---
Subjective Progress Note for:: 09/19/18 Subjective:: c/o pain from ng, no c/o abd pain no flatus or stool Reason For Visit: ACUTE KIDNEY INJURY,PAROXYSMAL ATRIAL FIBRILLATION Physical Exam Vital Signs: Temp Pulse Resp BP Pulse Ox 99.2 F 89 19 162/96 H 93 09/19/18 07:29 09/19/18 08:00 09/19/18 07:29 09/19/18 08:00 09/19/18 07:29 Intake & Output 09/18/18 09/19/18 09/20/18 06:59 06:59 06:59 Intake Total 1900 2300 150 Output Total 2200 4575 Balance -300 -2275 150 Weight 128 kg 124.8 kg General appearance: PRESENT: no acute distress Head exam: PRESENT: normocephalic Eye exam: PRESENT: EOMI Mouth exam: PRESENT: moist Neck exam: PRESENT: full ROM Respiratory exam: PRESENT: clear to auscultation martita Cardiovascular exam: PRESENT: RRR Pulses: PRESENT: normal radial pulses, normal femoral pulses GI/Abdominal exam: PRESENT: other - morbidly obese abd, distended', no palp hernias no groin hernias hypoactive bs.,non tender tympanitic Rectal exam: PRESENT: deferred Extremities exam: PRESENT: full ROM Musculoskeletal exam: PRESENT: full ROM Neurological exam: PRESENT: alert, awake, oriented to person, oriented to place, oriented to time Psychiatric exam: PRESENT: anxious Results Laboratory Results: 09/17/18 09:48 09/19/18 05:51 09/19/18 05:51 Sodium 150.6 H Potassium 3.7 Chloride 114 H Carbon Dioxide 29 Anion Gap 8 BUN 21 H Creatinine 1.65 H Est GFR ( Amer) 51 L Est GFR (Non-Af Amer) 42 L Glucose 97 Calcium 9.0 09/15/18 09/15/18 09/15/18 07:07 13:30 13:30 Creatine Kinase 261 H CK-MB (CK-2) 1.63 Troponin I 0.015 0.021 NT-Pro-B Natriuret Pep 239 09/15/18 09/15/18 09/17/18 20:35 20:35 09:48 Creatine Kinase 855 H 1250 H CK-MB (CK-2) 6.56 H Troponin I 0.022 NT-Pro-B Natriuret Pep 09/17/18 09:48 Creatine Kinase CK-MB (CK-2) 3.91 Troponin I < 0.012 NT-Pro-B Natriuret Pep Impressions: Renal Ultrasound 09/15/18 00:00 IMPRESSION: No evidence hydronephrosis. Abdomen/Pelvis CT 09/17/18 00:00 IMPRESSION: Small bowel obstruction Chest X-Ray 09/17/18 00:00 IMPRESSION: 1. MINIMAL LINEAR LEFT BASILAR OPACITIES LIKELY ATELECTASIS. 2. ENTERIC TUBE TIP LIKELY OVERLIES PROXIMAL STOMACH ALTHOUGH EVALUATION LIMITED. SIDE PORT NOT IDENTIFIED. Small Bowel X-Ray 09/18/18 00:00 IMPRESSION: 1. At 3 hours, much of the contrast remains in the stomach. If clinically feasible, consider positioning patient on the right side to facilitate emptying of the stomach and better opacification of the small bowel. If this can be done, consider additional follow-up radiographs in several hours. 2. There is a small amount of contrast in several distended small bowel segments, likely small bowel obstruction. However, there is not adequate opacification to determine the transition point. KUB X-Ray 09/19/18 00:00 IMPRESSION: Small bowel obstruction. Status: Image reviewed by me Assessment & Plan - Plan Summary Plan Summary: small bowel series and kub today show no progression of contrast clinical picture is c/w sbo. only surgery pt has had is a groin hernia repair in remote past no abd surgery no palp hernias ct did show area of inflammation near colon, howver no evidence of significant diverticulitis or colon obstruction this is a sbo pt does require surgery and was offered laparosocpic poss open laparotomy today I explained he is a high risk surgery candidate due to his comorbidities and obesity. currently he is refusing surgery and wants to cont with ng suction and medical rx.
--- NOTE | 2018-09-19 15:42 | PDOC PROGRESS REPORT ---
Subjective Progress Note for:: 09/19/18 Subjective:: He was seen by the bedside, he was seen by the surgeon and offered laparotomy, patient is not particularly ready at this time to proceed because of the potential complications from surgery, the surgeon explained to the patient the potential complications that could result from surgery including and patient was scared about proceeding especially if there is an option of as a complication ,but he has small bowel obstruction ,he has no history of laparo rinku or intra-abdominal surgery that would suggest that this is adhesions, patient was advised of the need to proceed with surgery because he may need to laid down in bed for prolonged of time. Reason For Visit: ACUTE KIDNEY INJURY,PAROXYSMAL ATRIAL FIBRILLATION Physical Exam Vital Signs: Temp Pulse Resp BP Pulse Ox 97.9 F 87 18 150/97 H 98 09/19/18 11:34 09/19/18 14:00 09/19/18 11:34 09/19/18 13:00 09/19/18 11:34 Intake & Output 09/18/18 09/19/18 09/20/18 06:59 06:59 06:59 Intake Total 1900 2300 250 Output Total 2200 4575 250 Balance -300 -2275 0 Weight 128 kg 124.8 kg General appearance: PRESENT: no acute distress Eye exam: PRESENT: PERRLA Respiratory exam: PRESENT: clear to auscultation martita Cardiovascular exam: PRESENT: +S1, +S2 GI/Abdominal exam: PRESENT: distended, soft Neurological exam: PRESENT: alert Results Laboratory Results: 09/17/18 09:48 09/19/18 05:51 09/19/18 05:51 Sodium 150.6 H Potassium 3.7 Chloride 114 H Carbon Dioxide 29 Anion Gap 8 BUN 21 H Creatinine 1.65 H Est GFR ( Amer) 51 L Est GFR (Non-Af Amer) 42 L Glucose 97 Calcium 9.0 09/15/18 09/15/18 09/15/18 07:07 13:30 13:30 Creatine Kinase 261 H CK-MB (CK-2) 1.63 Troponin I 0.015 0.021 NT-Pro-B Natriuret Pep 239 09/15/18 09/15/18 09/17/18 20:35 20:35 09:48 Creatine Kinase 855 H 1250 H CK-MB (CK-2) 6.56 H Troponin I 0.022 NT-Pro-B Natriuret Pep 09/17/18 09:48 Creatine Kinase CK-MB (CK-2) 3.91 Troponin I < 0.012 NT-Pro-B Natriuret Pep Impressions: Renal Ultrasound 09/15/18 00:00 IMPRESSION: No evidence hydronephrosis. Abdomen/Pelvis CT 09/17/18 00:00 IMPRESSION: Small bowel obstruction Chest X-Ray 09/17/18 00:00 IMPRESSION: 1. MINIMAL LINEAR LEFT BASILAR OPACITIES LIKELY ATELECTASIS. 2. ENTERIC TUBE TIP LIKELY OVERLIES PROXIMAL STOMACH ALTHOUGH EVALUATION LIMITED. SIDE PORT NOT IDENTIFIED. Small Bowel X-Ray 09/18/18 00:00 IMPRESSION: 1. At 3 hours, much of the contrast remains in the stomach. If clinically feasible, consider positioning patient on the right side to facilitate emptying of the stomach and better opacification of the small bowel. If this can be done, consider additional follow-up radiographs in several hours. 2. There is a small amount of contrast in several distended small bowel segments, likely small bowel obstruction. However, there is not adequate opacification to determine the transition point. KUB X-Ray 09/19/18 00:00 IMPRESSION: Small bowel obstruction. Assessment & Plan - Diagnosis (1) Acute kidney injury Is this a current diagnosis for this admission?: Yes Plan: improving (2) Acute diverticulitis Is this a current diagnosis for this admission?: Yes (3) Atrial fibrillation with RVR Is this a current diagnosis for this admission?: Yes (4) Morbid obesity due to excess calories Is this a current diagnosis for this admission?: Yes (5) Hypotension Qualifiers: Hypotension type: unspecified hypotension type Qualified Code(s): I95.9 - Hypotension, unspecified Is this a current diagnosis for this admission?: Yes (6) Small bowel obstruction Is this a current diagnosis for this admission?: Yes (7) Hypernatremia Is this a current diagnosis for this admission?: Yes Plan: Change IV fluid to 5% dextrose
[2018-09-19] MEDS: DEXTROSE 5%-WATER 500 ML with AMIODARONE HCL 900 MG IV PRN ×2 (16:31)
--- NOTE | 2018-09-19 23:10 | Progress Note ---
Provider Note Provider Note: CARDIOLOGY PROGRESS NOTE by Dr. Ana Jon on 09/19/2018. Subjective: The patient denies any chest pain or discomfort. There is no PND orthopnea. There is no recurrence of atrial fibrillation on IV amiodarone drip. The patient has no further flatus or bowel movement. He has some discomfort in the right mid and right lower quadrants. He denies any nausea vomiting. He still of the NG suction tube which is draining a lot. He refused surgery when the surgeon came and spoke to him about laparoscopic surgery. I try to talk to the patient but the patient is adamant that he does not want surgical treatment. The patient has no fever. PHYSICAL EXAMINATION: The patient is morbidly obese in spite of the NG tube and his abdominal discomfort he is in no major distress. Selected Entries 09/19/18 19:38 Temperature 98.2 F Temperature Oral Source Pulse Rate 78 Respiratory 24 H Rate Blood Pressure 150/97 H Blood Pressure 114 Mean BP Location Left Arm BP Position Supine O2 Sat by Pulse 96 Oximetry Oxygen Flow 4.00 Rate HEAD: Is atraumatic normocephalic. EYES: Pupils are equal round regular reactive light accommodation. Extraocular movements are normal. There is no conjunctival pallor. There is no scleral icterus. EARS: Tympanic memories are intact. External auditory canals are clear. NOSE: There is no deviated nasal septum. There is no inflammation of the nasal mucous membrane. MOUTH: Mucous membranes of mouth are moist. Tongue is moist. There is no ulcers there is no bleeding from the gums. Throat: There is no redness of the oropharynx. There is no exudates. SKIN: There is no skin rashes or skin lesions. There is no petechia or ecchymosis. NECK: Supple. There is no JVD. Carotids are equal there is no bruit. There is no accessory muscles of respiration use. Trachea central. LUNGS: There is diminished air entry prolonged expiration. There is a few scattered rhonchi. There is no wheezing or rales. On percussion there is hyperresonance. On palpation there is no chest wall tenderness. HEART: S1-S2 is heard S1 is of normal intensity. There is no S3 gallop there is no S4 gallop. There is systolic murmur left sternal border and the apex there is no rub. ABDOMEN: Is soft. There is mild discomfort on palpating the abdomen. There is mild abdominal distention. Bowel sounds are slightly diminished. There is no rebound guarding or rigidity. There is no hepatosplenomegaly. Bowel sounds are well heard. Extremities: Femorals are diminished there is no femoral bruits. Leg pulses are diminished. THERE IS NO PEDAL EDEMA. THERE IS NO DVT OR CELLULITIS. THERE IS NO CALF TENDERNESS. EXTERMINATOR HELPER: The patient is conscious a wake alert oriented x3 with no focal deficits. The patient has dysarthria. PSYCHIATRIC: At present the patient judgment insight are intact his affect is normal. Labs- All tests 24 hr 09/19/18 09/19/18 09/19/18 00:06 05:51 06:04 Sodium 150.6 H Potassium 3.7 Chloride 114 H Carbon Dioxide 29 Anion Gap 8 BUN 21 H Creatinine 1.65 H Est GFR ( Amer) 51 L Est GFR (Non-Af Amer) 42 L Glucose 97 POC Glucose 87 87 Calcium 9.0 09/19/18 09/19/18 11:35 17:55 Sodium Potassium Chloride Carbon Dioxide Anion Gap BUN Creatinine Est GFR ( Amer) Est GFR (Non-Af Amer) Glucose POC Glucose 112 H 103 Calcium Renal Ultrasound 09/15/18 00:00 IMPRESSION: No evidence hydronephrosis. Chest X-Ray 09/15/18 07:05 IMPRESSION: No acute disease. Abdomen/Pelvis CT 09/15/18 08:37 IMPRESSION: 1. There is a focal area of inflammatory changes associated with the bowel just to the left of the midline as described. Possible diverticulitis. 2. Considerable fluid is present in the bowel. Cannot exclude an enteritis. Abdomen/Pelvis CT 09/17/18 00:00 IMPRESSION: Small bowel obstruction Chest X-Ray 09/17/18 00:00 IMPRESSION: 1. MINIMAL LINEAR LEFT BASILAR OPACITIES LIKELY ATELECTASIS. 2. ENTERIC TUBE TIP LIKELY OVERLIES PROXIMAL STOMACH ALTHOUGH EVALUATION LIMITED. SIDE PORT NOT IDENTIFIED. KUB X-Ray 09/17/18 00:00 IMPRESSION: Small bowel obstruction. NG tube placement. Small Bowel X-Ray 09/18/18 00:00 IMPRESSION: 1. At 3 hours, much of the contrast remains in the stomach. If clinically feasible, consider positioning patient on the right side to facilitate emptying of the stomach and better opacification of the small bowel. If this can be done, consider additional follow-up radiographs in several hours. 2. There is a small amount of contrast in several distended small bowel segments, likely small bowel obstruction. However, there is not adequate opacification to determine the transition point. KUB X-Ray 09/19/18 00:00 IMPRESSION: Small bowel obstruction. Impression/Recommendation:. 1. Paroxysmal atrial fibrillation. Continue IV amiodarone infusion. 2. Acute gastric dilatation and ileus. The acute gastric dilatation was immediately brought to resolution with placement of NG tube and in view of the patient's ileus/small bowel obstruction continue NG tube to suction. Ice chips, otherwise n.p.o.. Continue antibiotics. Continue IV fluids. Note patient refused surgical treatment offered by the surgicalist. 3. Possibly mild exacerbation of COPD: Seems to have resolved, and the patient is back to baseline at present seems to be stable. Continue the patient on antibiotics and respiratory treatments. Continue BiPAP. Note that the patient did not want to be intubated, but there was a time it was thought that the patient was having significant significant respiratory depression and his saturations were beginning to fall. 4. Acute renal failure/injury: Nephrology on the case. Most likely secondary to infection and dehydration and atrial fibrillation with rapid ventricular response. Would recommend hydrating the patient and following nephrology advice. Note the patient GFR is improved 5. Hypertension: Blood pressure stable. Earlier the patient was hypotensive with systolic pressure of blood pressure in the 90s requiring emergent cardioversion of the atrial fibrillation with rapid ventricular response. Subsequently the patient blood pressure now is stable. 6. Coronary artery disease: Patient stable with no anginal symptoms, in spite of the patient having atrial fibrillation with rapid ventricular response. Also the patient has no evidence of non-ST elevation MN. 7. Acute abdomen with possible diverticulitis and enteritis. Continue antibiotics. Continue IV fluids 8. History of asthma/COPD: Continue anti-COPD treatment. 9. Obstructive sleep apnea: Continue BiPAP instructed patient the importance of using BiPAP. 10. Cardiomyopathy: No evidence of heart failure. 11. AICD placement: No firing of AICD. Note that the AICD was interrogated and data sent remotely to the [employer]. The pacemaker function is normal. There is been no recent AICD shocks. 12. History of depression schizoaffective disorder and posttraumatic stress disorder. MEDICATIONS reviewed. Medications adjusted. Management plan discussed with attending physician on the case. Medical decision making is of high complexity. 40 minutes spent on this patient with more than 80% time spent in direct patient care. Discussed with the surgicalist. Will follow. Discussed the patient's condition with the patient's ,.
[2018-09-20] MEDS: METRONIDAZOLE 500 MG/NS RTU 500 MG/100 ML RTUPB IV SCH ×4 (05:24→23:32)
[2018-09-20 06:09] LABS: ANION GAP 5 (5-19); BLOOD UREA NITROGEN 17 mg/dL (7-20); CALCIUM 8.7 mg/dL (8.4-10.2); CARBON DIOXIDE 28 mmol/L (22-30); CHLORIDE 115 mmol/L (98-107); GLUCOSE 129 mg/dL (75-110); POTASSIUM 3.6 mmol/L (3.6-5.0); SODIUM 147.9 mmol/L (137-145)
[2018-09-20] MEDS: CEFTRIAXONE SODIUM 1,000 MG in DEXTROSE 5%-WATER 50 ML IV SCH (09:35)
[2018-09-20] MEDS: DEXTROSE 5%-WATER 1000 ML 1,000 ML IV PRN ×2 (09:35→23:36)
--- NOTE | 2018-09-20 12:02 | RADIOLOGY REPORT (SQ) ---
EXAM DESCRIPTION: KUB/ABDOMEN (SINGLE VIEW) COMPLETED DATE/TIME: 09/20/2018 11:22 am REASON FOR STUDY: sbo COMPARISON: Abdominal films 09/19/2018, 09/17/2018 CT abdomen pelvis 09/17/2018, 09/15/2018 NUMBER OF VIEWS: One view. TECHNIQUE: Supine radiographic image of the abdomen acquired. LIMITATIONS: None. FINDINGS: BOWEL GAS PATTERN: Stomach is decompressed by a nasogastric tube. Persistent marked small bowel dilatation present, out of proportion to colon dilatation. Findings ar e worrisome for small bowel obstruction. CALCIFICATIONS: No suspicious calcifications. SOFT TISSUES: No gross mass or suggestion of organomegaly. HARDWARE: Nasogastric tube tip and side port in the stomach BONES: No acute fracture. No worrisome bone lesions. OTHER: No other significant finding. IMPRESSION: Stomach decompressed by nasogastric tube. Persistent gaseous distention of small bowel out of proportion to colon from small bowel obstruction TECHNICAL DOCUMENTATION: JOB ID: [id number] [employer]- All Rights Reserved Reading location - IP/workstation name: [email or web address]
--- NOTE | 2018-09-20 12:05 | PDOC PROGRESS REPORT ---
Subjective Progress Note for:: 09/20/18 Subjective:: Patient had three large bowel movement overnight. NGT remain in situ with drainage. No abdominal pain, nausea, or vomiting. No reported fever or chills. Reason For Visit: ACUTE KIDNEY INJURY,PAROXYSMAL ATRIAL FIBRILLATION Physical Exam Vital Signs: Temp Pulse Resp BP Pulse Ox 97.3 F 79 21 H 155/83 H 99 09/20/18 07:32 09/20/18 09:00 09/20/18 07:32 09/20/18 09:00 09/20/18 07:32 Intake & Output 09/19/18 09/20/18 09/21/18 06:59 06:59 06:59 Intake Total 2300 2733 1050 Output Total 4575 2125 Balance -2275 608 1050 Weight 124.8 kg 124.5 kg General appearance: PRESENT: no acute distress, morbidly obese Head exam: PRESENT: atraumatic, normocephalic Eye exam: PRESENT: conjunctiva pink. ABSENT: scleral icterus Mouth exam: PRESENT: moist Respiratory exam: PRESENT: clear to auscultation martita, decreased breath sounds - at lung bases Cardiovascular exam: PRESENT: RRR. ABSENT: diastolic murmur, rubs, systolic murmur Vascular exam: ABSENT: pallor GI/Abdominal exam: PRESENT: normal bowel sounds, soft. ABSENT: distended, guarding, mass, organolmegaly, rebound, tenderness Extremities exam: ABSENT: pedal edema Neurological exam: PRESENT: alert, awake, oriented to person, oriented to place, oriented to time, oriented to situation, CN II-XII grossly intact. ABSENT: motor sensory deficit Psychiatric exam: PRESENT: appropriate affect, normal mood. ABSENT: homicidal ideation, suicidal ideation Skin exam: PRESENT: dry, warm Results Laboratory Results: 09/17/18 09:48 09/20/18 05:11 09/20/18 05:11 Sodium 147.9 H Potassium 3.6 Chloride 115 H Carbon Dioxide 28 Anion Gap 5 BUN 17 Creatinine 1.40 H Est GFR ( Amer) > 60 Est GFR (Non-Af Amer) 51 L Glucose 129 H Calcium 8.7 09/15/18 11:27 Blood Blood Culture - Final NO GROWTH IN 5 DAYS 09/15/18 10:07 Blood Blood Culture - Final NO GROWTH IN 5 DAYS 09/15/18 09/15/1819 07:07 13:30 13:30 Creatine Kinase 261 H CK-MB (CK-2) 1.63 Troponin I 0.015 0.021 NT-Pro-B Natriuret Pep 239 09/15/18 09/15/18 09/17/18 20:35 20:35 09:48 Creatine Kinase 855 H 1250 H CK-MB (CK-2) 6.56 H Troponin I 0.022 NT-Pro-B Natriuret Pep 09/17/18 09:48 Creatine Kinase CK-MB (CK-2) 3.91 Troponin I < 0.012 NT-Pro-B Natriuret Pep Impressions: Renal Ultrasound 09/15/18 00:00 IMPRESSION: No evidence hydronephrosis. Abdomen/Pelvis CT 09/17/18 00:00 IMPRESSION: Small bowel obstruction Chest X-Ray 09/17/18 00:00 IMPRESSION: 1. MINIMAL LINEAR LEFT BASILAR OPACITIES LIKELY ATELECTASIS. 2. ENTERIC TUBE TIP LIKELY OVERLIES PROXIMAL STOMACH ALTHOUGH EVALUATION LIMITED. SIDE PORT NOT IDENTIFIED. Small Bowel X-Ray 09/18/18 00:00 IMPRESSION: 1. At 3 hours, much of the contrast remains in the stomach. If clinically feasible, consider positioning patient on the right side to facilitate emptying of the stomach and better opacification of the small bowel. If this can be done, consider additional follow-up radiographs in several hours. 2. There is a small amount of contrast in several distended small bowel segments, likely small bowel obstruction. However, there is not adequate opacification to determine the transition point. Assessment & Plan - Diagnosis (1) Acute diverticulitis Is this a current diagnosis for this admission?: Yes Plan: Continue IV Metronidazole and Ceftriaxone coverage. (2) Small bowel obstruction Is this a current diagnosis for this admission?: Yes Plan: Follow up on KUB X ray for further evaluation. Patient refused earlier recommended surgical intervention,. Continue conservative medical management. (3) Acute kidney injury Is this a current diagnosis for this admission?: Yes Plan: Maintain on IV fluid support. (4) Chronic atrial fibrillation Is this a current diagnosis for this admission?: Yes Plan: Patient remain on Amiodarone drip therapy. (5) Body mass index (BMI) 40.0-44.9, adult Is this a current diagnosis for this admission?: Yes Plan: Maintain on caloric restriction diet when he can resume oral feeding. - Time Time Spent with patient: 25-34 minutes Medications reviewed and adjusted accordingly: Yes Anticipated discharge: SNF Within: Other - Inpatient Certification Based on my medical assessment, after consideration of the patient's taran rbidities, presenting symptoms, or acuity I expect that the services needed warrant INPATIENT care.: Yes I certify that my determination is in accordance with my understanding of Medicare's requirements for reasonable and necessary INPATIENT services [42 CFR 412.3e].: Yes Medical Necessity: Significant Comorbidiites Make Outpatient Treatment Too Risky, Need Close Monitoring Due to Risk of Patient Decompensation, Need For IV Fluids, Need For Continuous Telemetry Monitoring, Need for IV Antibiotics, Risk of Complication if Not Cared For in Hospital, Risk of Diagnosis Which Will Require Inpatient Eval/Care/Monitoring Post Hospital Care: D/C or Transfer Summary - Plan Summary Plan Summary: See covering attending physician orders for care plan details.
--- NOTE | 2018-09-20 13:22 | Progress Note ---
Provider Note Provider Note: CARDIOLOGY PROGRESS NOTE by Dr. Ana Jon on 09/20/2018. SUBJECTIVE: The patient hardly continues to be on NG suction. He is in sinus rhythm on amiodarone infusion. He denies any chest pain or discomfort. He states his abdominal pain is much improved and has no pain, and only discomfort on deep palpation of the right lower quadrant. He states that he has had few bowel movements albeit small, and is passing gas. He is still on NGT suction. He denies any symptoms of TIA CVA. Physical EXAMINATION: The patient is morbidly obese. In spite of all that is going on he appears to be comfortable and in no distress. Selected Entries 09/20/18 11:18 Temperature 97.9 F Temperature Oral Source Pulse Rate 82 Respiratory 24 H Rate Blood Pressure 155/92 H Blood Pressure 113 Mean BP Location Left Arm BP Position Supine O2 Sat by Pulse 99 Oximetry Oxygen Flow 5.00 Rate Oxygen Delivery Nasal Cannula Method HEAD: Is atraumatic normocephalic. EYES: Pupils are equal round regular reactive light accommodation. Extraocular movements are normal. There is no conjunctival pallor. There is no scleral icterus. EARS: Tympanic memories are intact. External auditory canals are clear. NOSE: There is no deviated nasal septum. There is no inflammation of the nasal mucous membrane. MOUTH: Mucous membranes of mouth are moist. Tongue is moist. There is no ulcers there is no bleeding from the gums. Throat: There is no redness of the oropharynx. There is no exudates. SKIN: There is no skin rashes or skin lesions. There is no petechia or ecchymosis. NECK: Supple. There is no JVD. Carotids are equal there is no bruit. There is no accessory muscles of respiration use. Trachea central. LUNGS: There is diminished air entry prolonged expiration. There is a few scattered rhonchi. There is no wheezing or rales. On percussion there is hyperresonance. On palpation there is no chest wall tenderness. HEART: S1-S2 is heard S1 is of normal intensity. There is no S3 gallop there is no S4 gallop. There is systolic murmur left sternal border and the apex there is no rub. ABDOMEN: Is soft. There is mild discomfort on palpating the abdomen. There is mild abdominal distention. Bowel sounds are slightly diminished. There is no rebound guarding or rigidity. There is no hepatosplenomegaly. Bowel sounds are well heard. Extremities: Femorals are diminished there is no femoral bruits. Leg pulses are diminished. THERE IS NO PEDAL EDEMA. THERE IS NO DVT OR CELLULITIS. THERE IS NO CALF TENDERNESS. SURGICAL SCRUB TECHNOLOGIST: The patient is conscious awake alert oriented x3 with no focal deficits. The patient has dysarthria. PSYCHIATRIC: At present the patient judgment insight are intact his affect is normal. 09/20/18 05:11 Sodium 147.9 H Potassium 3.6 Chloride 115 H Carbon Dioxide 28 Anion Gap 5 BUN 17 Creatinine 1.40 H Est GFR ( Amer) > 60 Glucose 129 H Calcium 8.7 The patient's 24-hour intake is 2733 mL. His 24-hour output is 2125 mL. Renal Ultrasound 09/15/18 00:00 IMPRESSION: No evidence hydronephrosis. Chest X-Ray 09/15/18 07:05 IMPRESSION: No acute disease. Abdomen/Pelvis CT 09/15/18 08:37 IMPRESSION: 1. There is a focal area of inflammatory changes associated with the bowel just to the left of the midline as described. Possible diverticulitis. 2. Considerable fluid is present in the bowel. Cannot exclude an enteritis. Abdomen/Pelvis CT 09/17/18 00:00 IMPRESSION: Small bowel obstruction Chest X-Ray 09/17/18 00:00 IMPRESSION: 1. MINIMAL LINEAR LEFT BASILAR OPACITIES LIKELY ATELECTASIS. 2. ENTERIC TUBE TIP LIKELY OVERLIES PROXIMAL STOMACH ALTHOUGH EVALUATION LIMITED. SIDE PORT NOT IDENTIFIED. KUB X-Ray 09/17/18 00:00 IMPRESSION: Small bowel obstruction. NG tube placement. Small Bowel X-Ray 09/18/18 00:00 IMPRESSION: 1. At 3 hours, much of the contrast remains in the stomach. If clinically feasible, consider positioning patient on the right side to facilitate emptying of the stomach and better opacification of the small bowel. If this can be done, consider additional follow-up radiographs in several hours. 2. There is a small amount of contrast in several distended small bowel segments, likely small bowel obstruction. However, there is not adequate opacification to determine the transition point. KUB X-Ray 09/19/18 00:00 IMPRESSION: Small bowel obstruction. KUB X-Ray 09/20/18 00:00 IMPRESSION: Stomach decompressed by nasogastric tube. Persistent gaseous distention of small bowel out of proportion to colon from small bowel obstruction Impression/Recommendation:. 1. Paroxysmal atrial fibrillation. Continue IV amiodarone infusion. 2. Acute gastric dilatation and ileus. The acute gastric dilatation was immediately brought to resolution with placement of NG tube and in view of the patient's ileus/small bowel obstruction continue NG tube to suction. Ice chips, otherwise n.p.o.. Continue antibiotics. Continue IV fluids. Note patient refused surgical treatment offered by the surgicalist. 3. Possibly mild exacerbation of COPD: Seems to have resolved, and the patient is back to baseline at present seems to be stable. Continue the patient on antibiotics and respiratory treatments. Continue BiPAP. Note that the patient did not want to be intubated, but there was a time it was thought that the patient was having significant significant respiratory depression and his saturations were beginning to fall. 4. Acute renal failure/injury: Nephrology on the case. Most likely secondary to infection and dehydration and atrial fibrillation with rapid ventricular response. Would recommend hydrating the patient and following nephrology advice. Note the patient GFR is improved 5. Hypertension: Blood pressure stable. Earlier the patient was hypotensive with systolic pressure of blood pressure in the 90s requiring emergent cardioversion of the atrial fibrillation with rapid ventricular response. Subsequently the patient blood pressure now is stable. 6. Coronary artery disease: Patient stable with no anginal symptoms, in spite of the patient having atrial fibrillation with rapid ventricular response. Also the patient has no evidence of non-ST elevation SC. 7. Acute abdomen with possible diverticulitis and enteritis. Continue antibiotics. Continue IV fluids 8. History of asthma/COPD: Continue anti-COPD treatment. 9. Obstructive sleep apnea: Continue BiPAP instructed patient the importance of using BiPAP. 10. Cardiomyopathy: No evidence of heart failure. Note his last LV ejection fraction was within normal limits. 11. AICD placement: No firing of AICD. Note that the AICD was interrogated and data sent remotely to the [employer]. The pacemaker function is normal. There is been no recent AICD shocks. 12. History of depression schizoaffective disorder and posttraumatic stress disorder. MEDICATIONS reviewed. Medications adjusted. Management plan discussed with Dr. Norris covering the attending physician on the case. Medical decision making is of high complexity. 40 minutes spent on this patient with more than 80% time spent in direct patient care. Discussed with the surgicalist. Will follow. Discussed the patient's condition with the patient's ,.
[2018-09-20 16:19] LABS: ABSOLUTE EOSINOPHILS # (AUTO) 0.3 10^3/uL (0.0-0.6); ABSOLUTE LYMPHOCYTES (AUTO) 1.5 10^3/uL (0.5-4.7); ABSOLUTE NEUT (AUTO) 5.1 10^3/uL (1.7-8.2); BASOPHILS % (AUTO) 0.4 % (0-2); EOSINOPHILS % (AUTO) 3.8 % (0-6); HEMATOCRIT 40.5 % (37.9-51.0); HEMOGLOBIN 13.5 g/dL (13.5-17.0); LYMPHOCYTES % (AUTO) 19.2 % (13-45); MEAN CORPUSCULAR HEMOGLOBIN 27.4 pg (27.0-33.4); MEAN CORPUSCULAR HGB CONC 33.3 g/dL (32.0-36.0); MEAN CORPUSCULAR VOLUME 83 fl (80-97); MONOCYTES % (AUTO) 12.7 % (3-13); PLATELET COUNT 137 10^3/uL (150-450); RED BLOOD COUNT 4.91 10^6/uL (4.35-5.55); RED CELL DISTRIBUTION WIDTH 16.1 % (11.5-14.0); SEGMENTED NEUTROPHILS % (AUTO) 63.9 % (42-78); TOTAL CELLS COUNTED % (AUTO) 100 %
[2018-09-20 16:22] LABS: INTERNATIONAL RATION (INR) 1.29; PROTHROMBIN TIME 16.8 SEC (11.4-15.4)
[2018-09-20 16:23] LABS: PARTIAL THROMBOPLASTIN TIME 25.4 SEC (23.5-35.8)
[2018-09-20] MEDS: DEXTROSE 5%-WATER 500 ML with AMIODARONE HCL 900 MG IV PRN ×2 (16:31)
--- NOTE | 2018-09-20 16:49 | PDOC PROGRESS REPORT ---
Subjective Progress Note for:: 09/20/18 Subjective:: 63-year-old male with a small bowel obstruction of unknown etiology. The patient denies any significant intra-abdominal surgery. The patient reports that his abdomen is less distended today. He denies any abdominal pain, nausea, vomiting, fevers, chills. He reports a small amount of flatus. He denies chest pain, shortness of breath, dizziness, orthostasis. Currently he does report pain in his penis and bleeding at the urethral meatus. Reason For Visit: ACUTE KIDNEY INJURY,PAROXYSMAL ATRIAL FIBRILLATION Physical Exam Vital Signs: Temp Pulse Resp BP Pulse Ox 97.9 F 85 24 H 149/99 H 99 09/20/18 11:18 09/20/18 14:00 09/20/18 11:18 09/20/18 12:00 09/20/18 11:18 Intake & Output 09/19/18 09/20/18 09/21/18 06:59 06:59 06:59 Intake Total 2300 2733 1050 Output Total 4575 2125 300 Balance -2275 608 750 Weight 124.8 kg 124.5 kg General appearance: PRESENT: mild distress Head exam: PRESENT: atraumatic, normocephalic Eye exam: PRESENT: EOMI, PERRLA Mouth exam: PRESENT: neck supple Neck exam: ABSENT: meningismus, tenderness, thyromegaly, tracheal deviation Respiratory exam: PRESENT: clear to auscultation martita, unlabored. ABSENT: chest wall tenderness, tachypnea Cardiovascular exam: PRESENT: RRR Pulses: PRESENT: normal radial pulses GI/Abdominal exam: PRESENT: soft, other - Obese, NG tube in place.. ABSENT: distended, tenderness Rectal exam: PRESENT: deferred Gentrourinary exam: PRESENT: other - Bleeding at the urethral meatus. Penile swelling and tenderness present. Extremities exam: ABSENT: clubbing Musculoskeletal exam: ABSENT: deformity Neurological exam: PRESENT: alert, awake, oriented to person, oriented to place, oriented to time, oriented to situation Psychiatric exam: PRESENT: agitated. ABSENT: anxious, depressed Focused psych exam: ABSENT: delusional Skin exam: ABSENT: cyanosis, jaundice Results Laboratory Results: 09/20/18 16:07 09/20/18 05:11 09/20/18 09/20/18 05:11 16:07 WBC 8.0 RBC 4.91 Hgb 13.5 Hct 40.5 MCV 83 MCH 27.4 MCHC 33.3 RDW 16.1 H Plt Count 137 L Seg Neutrophils % 63.9 Lymphocytes % 19.2 Monocytes % 12.7 Eosinophils % 3.8 Basophils % 0.4 Absolute Neutrophils 5.1 Absolute Lymphocytes 1.5 Absolute Monocytes 1.0 Absolute Eosinophils 0.3 Absolute Basophils 0.0 Sodium 147.9 H Potassium 3.6 Chloride 115 H Carbon Dioxide 28 Anion Gap 5 BUN 17 Creatinine 1.40 H Est GFR ( Amer) > 60 Est GFR (Non-Af Amer) 51 L Glucose 129 H Calcium 8.7 09/15/18 11:27 Blood Blood Culture - Final NO GROWTH IN 5 DAYS 09/15/18 10:07 Blood Blood Culture - Final NO GROWTH IN 5 DAYS 09/15/18 09/15/18 09/15/18 07:07 13:30 13:30 Creatine Kinase 261 H CK-MB (CK-2) 1.63 Troponin I 0.015 0.021 NT-Pro-B Natriuret Pep 239 09/15/18 09/15/18 09/17/18 20:35 20:35 09:48 Creatine Kinase 855 H 1250 H CK-MB (CK-2) 6.56 H Troponin I 0.022 NT-Pro-B Natriuret Pep 09/17/18 09:48 Creatine Kinase CK-MB (CK-2) 3.91 Troponin I < 0.012 NT-Pro-B Natriuret Pep Impressions: Renal Ultrasound 09/15/18 00:00 IMPRESSION: No evidence hydronephrosis. Abdomen/Pelvis CT 09/17/18 00:00 IMPRESSION: Small bowel obstruction Chest X-Ray 09/17/18 00:00 IMPRESSION: 1. MINIMAL LINEAR LEFT BASILAR OPACITIES LIKELY ATELECTASIS. 2. ENTERIC TUBE TIP LIKELY OVERLIES PROXIMAL STOMACH ALTHOUGH EVALUATION LIMITED. SIDE PORT NOT IDENTIFIED. Small Bowel X-Ray 09/18/18 00:00 IMPRESSION: 1. At 3 hours, much of the contrast remains in the stomach. If clinically feasible, consider positioning patient on the right side to facilitate emptying of the stomach and better opacification of the small bowel. If this can be done, consider additional follow-up radiographs in several hours. 2. There is a small amount of contrast in several distended small bowel segments, likely small bowel obstruction. However, there is not adequate opacification to determine the transition point. KUB X-Ray 09/20/18 00:00 IMPRESSION: Stomach decompressed by nasogastric tube. Persistent gaseous distention of small bowel out of proportion to colon from small bowel obstruction Assessment & Plan - Diagnosis (1) Small bowel obstruction Is this a current diagnosis for this admission?: Yes - Plan Summary Plan Summary: This is a 63-year-old male with a small bowel obstruction of unknown etiology. The patient does not have an acute abdominal wall hernia. He has not had significant intra-abdominal surgery. The source of his bowel obstruction is still a mystery. It was recommended the patient have an operation to identify the etiology of his bowel obstruction and to treat it. The patient refused surgery at that time. The patient is feeling better with NG decompression. He is still refusing surgical intervention. Continue with conservative measures for now. There is always the remote possibility that a malignancy could be contributing to his bowel obstruction. This is been discussed with the patient and his . They wish to continue the current treatment plan. The patient has developed penile swelling, pain, and bleeding at the urethral meatus. He has a history of an indwelling penile prosthesis. I am concerned that there may be an issue with his prosthesis. I have recommended urgent urologic evaluation. This is been conveyed directly to Dr. Norris.
--- NOTE | 2018-09-20 17:07 | Progress Note ---
Provider Note Provider Note: Patient developed profuse bleeding from penile meatus after sensation of a pop and subsequent pain in his penis. He has history of penile implant. I discussed case with Dr. Stanford, position clerk surgicalist, at this time he was of the opinion for urgent urology consultation. We reinsert his Aldana catheter with some benef it but due to persistence of bleeding it was decided to insert a bladder irrigating Aldana catheter system. We were able to achieve cessation of bleeding at this time. I discussed case with Dr. Sol, urologist, position clerk at [facility] and he felt that patient probable rupture vessel at the base of his bladder and there is no significant urgent urology intervention at this time. He recommended to tamponade the base with inflated balloon on the Aldana catheter with some amount of traction for next 12 hours and reassess. His H&H was 13.5 / 40.5 and Plt 137, PT/INR 16.8/1.29 with aPTT 25.4 at 16:07 on 09/20/2018. We will repeat lab indices later tonight. We will hold transfer at this time.
[2018-09-20] MEDS ORDERED: MORPHINE SULFATE 10 MG/ML INJ IV PRN (17:15)
[2018-09-20 22:27] LABS: ABSOLUTE EOSINOPHILS # (AUTO) 0.3 10^3/uL (0.0-0.6); ABSOLUTE LYMPHOCYTES (AUTO) 1.5 10^3/uL (0.5-4.7); ABSOLUTE MONOCYTES (AUTO) 1.1 10^3/uL (0.1-1.4); ABSOLUTE NEUT (AUTO) 5.5 10^3/uL (1.7-8.2); BASOPHILS % (AUTO) 0.5 % (0-2); EOSINOPHILS % (AUTO) 3.1 % (0-6); HEMATOCRIT 39.9 % (37.9-51.0); HEMOGLOBIN 13.3 g/dL (13.5-17.0); LYMPHOCYTES % (AUTO) 17.8 % (13-45); MEAN CORPUSCULAR HEMOGLOBIN 27.8 pg (27.0-33.4); MEAN CORPUSCULAR HGB CONC 33.3 g/dL (32.0-36.0); MEAN CORPUSCULAR VOLUME 83 fl (80-97); MONOCYTES % (AUTO) 12.7 % (3-13); PLATELET COUNT 128 10^3/uL (150-450); RED BLOOD COUNT 4.79 10^6/uL (4.35-5.55); RED CELL DISTRIBUTION WIDTH 16.2 % (11.5-14.0); SEGMENTED NEUTROPHILS % (AUTO) 65.9 % (42-78); TOTAL CELLS COUNTED % (AUTO) 100 %; WHITE BLOOD COUNT 8.4 10^3/uL (4.0-10.5)
[2018-09-21] MEDS: METRONIDAZOLE 500 MG/NS RTU 500 MG/100 ML RTUPB IV SCH ×3 (05:50→19:05)
[2018-09-21] MEDS: HYDRALAZINE HCL INJ/PF 20 MG/1 ML SDV IV PRN (06:14)
--- NOTE | 2018-09-21 07:10 | PDOC PROGRESS REPORT ---
Subjective Subjective:: 63-year-old male with a small bowel obstruction of unknown etiology. The patient denies any significant intra-abdominal surgery. The patient reports that his abdomen is still moderately distended. He denies any abdominal pain, nausea, vomiting, fevers, chills. He denies any further flatus. He denies chest pain, shortness of breath, dizziness, orthostasis. He is bleeding at the urethral meatus has stopped. Reason For Visit: ACUTE KIDNEY INJURY,PAROXYSMAL ATRIAL FIBRILLATION Physical Exam Vital Signs: Temp Pulse Resp BP Pulse Ox 100.3 F 82 16 144/85 H 96 09/21/18 03:39 09/21/18 03:39 09/21/18 03:39 09/21/18 03:39 09/21/18 03:39 Intake & Output 09/20/18 09/21/18 09/22/18 06:59 06:59 06:59 Intake Total 2733 6150 Output Total 2125 3600 Balance 608 2550 Weight 124.5 kg General appearance: PRESENT: no acute distress, cooperative Head exam: PRESENT: atraumatic, normocephalic Eye exam: PRESENT: EOMI. ABSENT: scleral icterus Mouth exam: PRESENT: moist, neck supple Neck exam: ABSENT: meningismus, tenderness, thyromegaly, tracheal deviation Respiratory exam: PRESENT: clear to auscultation martita, symmetrical. ABSENT: ch est wall tenderness, tachypnea Cardiovascular exam: PRESENT: irregular rhythm Pulses: PRESENT: normal radial pulses Vascular exam: PRESENT: normal capillary refill. ABSENT: pallor GI/Abdominal exam: PRESENT: distended, soft. ABSENT: tenderness Rectal exam: PRESENT: deferred Extremities exam: ABSENT: clubbing Musculoskeletal exam: ABSENT: deformity Neurological exam: PRESENT: alert, awake, oriented to person, oriented to place, oriented to time, oriented to situation Psychiatric exam: ABSENT: agitated, anxious, depressed Focused psych exam: ABSENT: delusional Skin exam: ABSENT: cyanosis, erythema, jaundice Results Laboratory Results: 09/20/18 22:05 09/21/18 05:10 09/20/18 09/20/18 09/21/18 16:07 22:05 05:10 WBC 8.0 8.4 RBC 4.91 4.79 Hgb 13.5 13.3 L Hct 40.5 39.9 MCV 83 83 MCH 27.4 27.8 MCHC 33.3 33.3 RDW 16.1 H 16.2 H Plt Count 137 L 128 L Seg Neutrophils % 63.9 65.9 Lymphocytes % 19.2 17.8 Monocytes % 12.7 12.7 Eosinophils % 3.8 3.1 Basophils % 0.4 0.5 Absolute Neutrophils 5.1 5.5 Absolute Lymphocytes 1.5 1.5 Absolute Monocytes 1.0 1.1 Absolute Eosinophils 0.3 0.3 Absolute Basophils 0.0 0.0 Sodium Cancelled Potassium Cancelled Chloride Cancelled Carbon Dioxide Cancelled Anion Gap Cancelled BUN Cancelled Creatinine Cancelled Est GFR ( Amer) Cancelled Est GFR (Non-Af Amer) Cancelled Glucose Cancelled Calcium Cancelled 09/15/18 11:27 Blood Blood Culture - Final NO GROWTH IN 5 DAYS 09/15/18 10:07 Blood Blood Culture - Final NO GROWTH IN 5 DAYS 09/15/18 09/15/18 09/15/18 07:07 13:30 13:30 Creatine Kinase 261 H CK-MB (CK-2) 1.63 Troponin I 0.015 0.021 NT-Pro-B Natriuret Pep 239 09/15/18 09/15/18 09/17/18 20:35 20:35 09:48 Creatine Kinase 855 H 1250 H CK-MB (CK-2) 6.56 H Troponin I 0.022 NT-Pro-B Natriuret Pep 09/17/18 09:48 Creatine Kinase CK-MB (CK-2) 3.91 Troponin I < 0.012 NT-Pro-B Natriuret Pep Impressions: Renal Ultrasound 09/15/18 00:00 IMPRESSION: No evidence hydronephrosis. Abdomen/Pelvis CT 09/17/18 00:00 IMPRESSION: Small bowel obstruction Chest X-Ray 09/17/18 00:00 IMPRESSION: 1. MINIMAL LINEAR LEFT BASILAR OPACITIES LIKELY ATELECTASIS. 2. ENTERIC TUBE TIP LIKELY OVERLIES PROXIMAL STOMACH ALTHOUGH EVALUATION L IMITED. SIDE PORT NOT IDENTIFIED. Small Bowel X-Ray 09/18/18 00:00 IMPRESSION: 1. At 3 hours, much of the contrast remains in the stomach. If clinically feasible, consider positioning patient on the right side to facilitate emptying of the stomach and better opacification of the small bowel. If this can be done, consider additional follow-up radiographs in several hours. 2. There is a small amount of contrast in several distended small bowel segments, likely small bowel obstruction. However, there is not adequate opacification to determine the transition point. KUB X-Ray 09/20/18 00:00 IMPRESSION: Stomach decompressed by nasogastric tube. Persistent gaseous distention of small bowel out of proportion to colon from small bowel obstruction Assessment & Plan - Diagnosis (1) Small bowel obstruction Is this a current diagnosis for this admission?: Yes - Plan Summary Plan Summary: This is a 63-year-old male with a bowel obstruction of currently unknown etiology. I have again discussed his care this morning at length. The patient reports that he is "tired of sitting and waiting with the tube in his nose". The patient now requests surgery be performed to ascertain the cause of his bowel obstruction and treat it. I have agreed to this. Risks/benefits discussed, informed consent obtained, and all questions answered.
[2018-09-21 07:35] LABS: ANION GAP 5 (5-19); BLOOD UREA NITROGEN 14 mg/dL (7-20); CALCIUM 8.9 mg/dL (8.4-10.2); CARBON DIOXIDE 31 mmol/L (22-30); CHLORIDE 110 mmol/L (98-107); GLUCOSE 114 mg/dL (75-110); POTASSIUM 3.4 mmol/L (3.6-5.0); SODIUM 145.6 mmol/L (137-145)
[2018-09-21] MEDS ORDERED: MIDAZOLAM 2 MG/2 ML INJ ONE (09:59)
[2018-09-21] MEDS ORDERED: EPHEDRINE SULFATE INJ 50 MG/1 ML AMPULE ONE (09:59)
[2018-09-21] MEDS ORDERED: HYDROMORPHONE HCL INJ/PF 2 MG/ML AMPULE ONE (09:59)
[2018-09-21] MEDS ORDERED: PROPOFOL INJ 200 MG/20 ML VIAL IV ONE (09:59)
[2018-09-21] MEDS ORDERED: BUPIVACAINE HCL 0.25 % INJ/PF (2.5 MG/1 ML) 30 ML VIAL ONE (10:15)
[2018-09-21] MEDS: CEFTRIAXONE SODIUM 1,000 MG in DEXTROSE 5%-WATER 50 ML IV SCH (11:15)
--- NOTE | 2018-09-21 13:41 | Operative Report ---
Nonrecallable Operative Report DATE OF SURGERY: 09/21/18 PREOPERATIVE DIAGNOSIS: Small bowel obstruction POSTOPERATIVE DIAGNOSIS: Strictured, inflamed area of the terminal ileum OPERATION: 1. Exploratory laparotomy. 2 ileocecectomy for distal small bowel stricture. 3. Primary side to side stapled ileocolic anastomosis. SURGEON: BETSY OTTO ANESTHESIA: GA TISSUE REMOVED OR ALTERED: Ileocecectomy COMPLICATIONS: None apparent ESTIMATED BLOOD LOSS: 100 cc PROCEDURE: Drains/implants: 15 Bhutanese round Tucker drain in the right lower quadrant. Procedure in detail: After informed consent was obtained, the patient was brought into the operating room and laid in the supine position. The area of the abdomen was prepped and draped in a normal sterile fashion. Midline laparotomy incision was created with a 10 blade scalpel. Dissection was carried through the subcutaneous tissue using sharp and blunt dissection. The linea alba fascia was incised sharply, the abdomen was entered sharply. Upon entry into the abdomen there was noted to be a large amount of dilated small bowel present. The small bowel was eviscerated and run from the ligament of Treitz to the ileocecal valve. In the terminal ileum, approximately 2-3 inches before the ileocecal valve, an area of stricture was identified. The small bowel was unhealthy with an area of necrosis. This was felt to be the point of obstruction. The remainder of the colon was inspected. The right colon, transverse colon, descending colon, sigmoid colon and rectum all appeared visually normal, and were palpated. No obvious abnormalities could be identified throughout the colon. Attention was then turned to relieving the obstruction. It was felt t hat an ileocecectomy would be required due to the close proximity to the ileocecal valve. The right colon was mobilized along the white line of Toldt and rotated medially. The appendix was identified and freed with the specimen. It was in the retrocecal position. Next, the small bowel was divided proximal to the stricture using the CHANELL-75 stapler. The right colon was divided distal to the ileocecal valve, also using the CHANELL-75 stapling device. The mesentery was divided using the LigaSure device. The specimen was then passed off the field and sent to pathology. Attention was then turned to decompression of the small bowel, to facilitate an anastomosis. The small bowel was opened at the staple line and approximately 1.5 L of fluid was removed from the small bowel. After this was completed the small bowel was brought in apposition to the remaining right colon. A colotomy was created. An anastomosis was made between the small bowel and the right colon using the CHANELL-75 stapling device. The resulting defect was closed with sutures, to preserve length of the anastomosis. The inner layer was closed using 3-0 PDS suture in simple running fashion. An external layer of Lembert 3- 0 Vicryl sutures were then placed. The anastomosis was tested, and found to be free of any leakage of air or liquid. 2 crotch stitches of 3-0 Vicryl were placed into the anastomosis. After this was completed the abdomen was copiously irrigated and suctioned, until the effluent was clear. A 15 Bh[place]anese round Tucker drain was placed into the left lower quadrant abdominal wall through a stab incision and affixed to the peritoneal surface in the right lower quadrant. The drain was tethered to the peritoneum using 4-0 chromic suture in the right lower quadrant, adjacent to the anastomosis. The drain was sutured to the skin using 2-0 nylon suture. Attention was then turned to closure of the abdominal wall. The midline fascia was reapproximated using #1 double-stranded loop PDS suture in simple running fashion. The overlying skin was closed using skin lupe. A dressing was placed, and the procedure was concluded. All sponge, instrument, and needle counts were correct x2. Condition: Fair.
[2018-09-21] MEDS ORDERED: SUCCINYLCHOLINE CHLORIDE INJ 200 MG/10 ML VIAL ONE (14:19)
[2018-09-21] MEDS ORDERED: LIDOCAINE 2% INJ-PF (20 MG/ML) 2 ML AMPUL ONE (14:19)
[2018-09-21] MEDS ORDERED: ROCURONIUM BROMIDE INJ 50 MG/5 ML VIAL IV ONE (14:19)
[2018-09-21] MEDS ORDERED: VECURONIUM BROMIDE INJ 10 MG VIAL IV ONE (14:19)
[2018-09-21] MEDS: HYDROMORPHONE HCL INJ/PF 2 MG/ML AMPULE IV PRN ×4 (14:20→23:57)
[2018-09-21] MEDS: MIDAZOLAM 2 MG/2 ML INJ IV PRN (14:39)
[2018-09-21] MEDS: 1/2 NORMAL SALINE 1,000 ML IV PRN (15:02)
[2018-09-21] MEDS ORDERED: NORMAL SALINE 1000 ML 2,000 ML IV ONE (16:00)
[2018-09-21] MEDS ORDERED: MIDAZOLAM 2 MG/2 ML INJ IV ONE (16:00)
[2018-09-21] MEDS ORDERED: PROPOFOL 1,000 MG/100 ML INFUS..BTL IV ONE (16:11)
[2018-09-21] MEDS: PROPOFOL 1,000 MG/100 ML INFUS..BTL IV PRN ×3 (16:12→21:54)
--- NOTE | 2018-09-21 16:43 | PDOC PROGRESS REPORT ---
Subjective Progress Note for:: 09/21/18 Subjective:: Patient is post exploratory laparotomy surgery for small bowel obstruction, currently intubated and vent supported. Patient will need continue conservative management for his lower bleeding. currently no bleeding and there is satisfactory urine output. He is currently sedated. Reason For Visit: ACUTE KIDNEY INJURY,PAROXYSMAL ATRIAL FIBRILLATION Physical Exam Vital Signs: Temp Pulse Resp BP Pulse Ox 100.3 F 89 22 H 150/105 H 99 09/21/18 07:31 09/21/18 09:00 09/21/18 14:43 09/21/18 14:43 09/21/18 14:43 Intake & Output 09/20/18 09/21/18 09/22/18 06:59 06:59 06:59 Intake Total 2733 9650 4660 Output Total 2125 9650 2460 Balance 608 0 2200 Weight 124.5 kg 124.8 kg Physical Exam: General appearance: PRESENT: Intubated and vent supported, morbidly obese Head exam: PRESENT: atraumatic, normocephalic Eye exam: PRESENT: conjunctiva pink. ABSENT: pallor, scleral icterus Mouth exam: PRESENT: ET tube in situ, moist Respiratory exam: PRESENT: clear to auscultation martita, decreased breath sounds - at lung bases Cardiovascular exam: PRESENT: RRR. ABSENT: diastolic murmur, rubs, systolic murmur Vascular exam: ABSENT: pallor GI/Abdominal exam: PRESENT: NGT in situ, surgical site dressing okay. ABSENT: bowel sounds Extremities exam: ABSENT: pedal edema Neurological exam: PRESENT: sedated Skin exam: PRESENT: dry, warm, surgical site dressing okay Gentrourinary exam: PRESENT: indwelling catheter - with bladder irrigation in progress. Results Laboratory Results: 09/20/18 22:05 09/21/18 07:05 09/20/18 09/21/18 09/21/18 22:05 05:10 07:05 WBC 8.4 RBC 4.79 Hgb 13.3 L Hct 39.9 MCV 83 MCH 27.8 MCHC 33.3 RDW 16.2 H Plt Count 128 L Seg Neutrophils % 65.9 Lymphocytes % 17.8 Monocytes % 12.7 Eosinophils % 3.1 Basophils % 0.5 Absolute Neutrophils 5.5 Absolute Lymphocytes 1.5 Absolute Monocytes 1.1 Absolute Eosinophils 0.3 Absolute Basophils 0.0 Sodium Cancelled 145.6 H Potassium Cancelled 3.4 L Chloride Cancelled 110 H Carbon Dioxide Cancelled 31 H Anion Gap Cancelled 5 BUN Cancelled 14 Creatinine Cancelled 1.52 H Est GFR ( Amer) Cancelled 56 L Est GFR (Non-Af Amer) Cancelled 46 L Glucose Cancelled 114 H Calcium Cancelled 8.9 09/15/18 09/15/18 09/15/18 07:07 13:30 13:30 Creatine Kinase 261 H CK-MB (CK-2) 1.63 Troponin I 0.015 0.021 NT-Pro-B Natriuret Pep 239 09/15/18 09/15/18 09/17/18 20:35 20:35 09:48 Creatine Kinase 855 H 1250 H CK-MB (CK-2) 6.56 H Troponin I 0.022 NT-Pro-B Natriuret Pep 09/17/18 09:48 Creatine Kinase CK-MB (CK-2) 3.91 Troponin I < 0.012 NT-Pro-B Natriuret Pep Impressions: Renal Ultrasound 09/15/18 00:00 IMPRESSION: No evidence hydronephrosis. Abdomen/Pelvis CT 09/17/18 00:00 IMPRESSION: Small bowel obstruction Chest X-Ray 09/17/18 00:00 IMPRESSION: 1. MINIMAL LINEAR LEFT BASILAR OPACITIES LIKELY ATELECTASIS. 2. ENTERIC TUBE TIP LIKELY OVERLIES PROXIMAL STOMACH ALTHOUGH EVALUATION LIMITED. SIDE PORT NOT IDENTIFIED. Small Bowel X-Ray 09/18/18 00:00 IMPRESSION: 1. At 3 hours, much of the contrast remains in the stomach. If clinically feasible, consider positioning patient on the right side to facilitate emptying of the stomach and better opacification of the small bowel. If this can be done, consider additional follow-up radiographs in several hours. 2. There is a small amount of contrast in several distended small bowel segments, likely small bowel obstruction. However, there is not adequate opacification to determine the transition point. KUB X-Ray 09/20/18 00:00 IMPRESSION: Stomach decompressed by nasogastric tube. Persistent gaseous distention of small bowel out of proportion to colon from small bowel obstruction Assessment & Plan - Diagnosis (1) Acute diverticulitis Is this a current diagnosis for this admission?: Yes (2) Small bowel obstruction Is this a current diagnosis for this admission?: Yes (3) Acute kidney injury Is this a current diagnosis for this admission?: Yes (4) Chronic atrial fibrillation Is this a current diagnosis for this admission?: Yes (5) Body mass index (BMI) 40.0-44.9, adult Is this a current diagnosis for this admission?: Yes - Time Time Spent with patient: 35 or more minutes Medications reviewed and adjusted accordingly: Yes Anticipated discharge: SNF Within: Other - Inpatient Certification Based on my medical assessment, after consideration of the patient's comorbidities, presenting symptoms, or acuity I expect that the services needed warrant INPATIENT care.: Yes I certify that my determination is in accordance with my understanding of Medicare's requirements for reasonable and necessary INPATIENT services [42 CFR 412.3e].: Yes Medical Necessity: Significant Comorbidiites Make Outpatient Treatment Too Risky, Need Close Monitoring Due to Risk of Patient Decompensation, Need For IV Fluids, Need For Continuous Telemetry Monitoring, Need for Pain Control, Need for IV Antibiotics, Need for Surgery, Risk of Complication if Not Cared For in Hospital, Risk of Diagnosis Which Will Require Inpatient Eval/Care/Monitoring Post Hospital Care: D/C or Transfer Summary - Plan Summary Plan Summary: See covering attending physician orders for care plan details. Prognosis remain guarded.
[2018-09-21] MEDS ORDERED: ACETAMINOPHEN 650 MG SUPP.RECT PR ONE ×2 (18:23→21:15)
--- NOTE | 2018-09-21 18:32 | Progress Note ---
Provider Note Provider Note: CARDIOLOGY PROGRESS NOTE by Dr. Ana Jon on 09/21/2018. SUBJECTIVE: The patient continues to have abdominal distention. The patient continues to be in sinus rhythm on amiodarone infusion. His bleeding from the urethral meatus is stopped. The patient finally consented to undergo surgery, and is now status post surgery with the patient undergoing laparotomy and ileectomy for inflamed terminal ileum which is causing the small bowel obstruction. There are no ventricular arrhythmia seen on the monitor. The patient is on fighting the ventilator now. Earlier the patient was agitated until he was sedated. At that time his heart rate went up. At present the patient is in sinus tach. PHYSICAL EXAMINATION: The patient is morbidly obese. He is on the ventilator sedated. Selected Entries 09/21/18 09/21/18 16:36 18:08 Heart Rate ( 111 Monitors) Respiratory 22 H Rate Blood Pressure 149/97 H Blood Pressure 114 Mean O2 Sat by Pulse 96 Oximetry Fraction of 40 Inspired Oxygen (FIO2) HEAD: Is atraumatic normocephalic. EYES: Pupils are equal round regular reactive light accommodation. Extraocular movements are normal. There is no conjunctival pallor. There is no scleral icterus. EARS: Tympanic memories are intact. External auditory canals are clear. NOSE: There is no deviated nasal septum. There is no inflammation of the nasal mucous membrane. MOUTH: Mucous membranes of mouth are moist. Tongue is moist. There is no ulcers there is no bleeding from the gums. Throat: There is no redness of the oropharynx. There is no exudates. SKIN: There is no skin rashes or skin lesions. There is no petechia or ecchymosis. NECK: Supple. There is no JVD. Carotids are equal there is no bruit. There is no accessory muscles of respiration use. Trachea central. LUNGS: There is diminished air entry prolonged expiration. There is a few scattered rhonchi. There is no wheezing or rales. On percussion there is hyperresonance. On palpation there is no chest wall tenderness. HEART: S1-S2 is heard S1 is of normal intensity. There is no S3 gallop there is no S4 gallop. There is systolic murmur left sternal border and the apex there is no rub. ABDOMEN: Is soft. The dressing is dry and clean. There is no hepatosplenomegaly. Bowel sounds are absent. EXTREMITIES: Femorals are diminished there is no femoral bruits. Leg pulses are diminished. There is no pedal edema, and no evidence of DVT.. ACTIVITIES OFFICER and PSYCHIATRIC exam not performed, since the patient is intubated and sedated. Labs- All tests 24 hr 09/20/18 09/21/18 09/21/18 22:05 00:54 05:10 WBC 8.4 RBC 4.79 Hgb 13.3 L Hct 39.9 MCV 83 MCH 27.8 MCHC 33.3 RDW 16.2 H Plt Count 128 L Seg Neutrophils % 65.9 Lymphocytes % 17.8 Monocytes % 12.7 Eosinophils % 3.1 Basophils % 0.5 Absolute Neutrophils 5.5 Absolute Lymphocytes 1.5 Absolute Monocytes 1.1 Absolute Eosinophils 0.3 Absolute Basophils 0.0 Sodium Cancelled Potassium Cancelled Chloride Cancelled Carbon Dioxide Cancelled Anion Gap Cancelled BUN Cancelled Creatinine Cancelled Est GFR ( Amer) Cancelled Est GFR (Non-Af Amer) Cancelled Glucose Cancelled POC Glucose 97 Calcium Cancelled 09/21/18 09/21/18 07:05 07:08 WBC RBC Hgb Hct MCV MCH MCHC RDW Plt Count Seg Neutrophils % Lymphocytes % Monocytes % Eosinophils % Basophils % Absolute Neutrophils Absolute Lymphocytes Absolute Monocytes Absolute Eosinophils Absolute Basophils Sodium 145.6 H Potassium 3.4 L Chloride 110 H Carbon Dioxide 31 H Anion Gap 5 BUN 14 Creatinine 1.52 H Est GFR ( Amer) 56 L Est GFR (Non-Af Amer) 46 L Glucose 114 H POC Glucose 100 Calcium 8.9 Renal Ultrasound 09/15/18 00:00 IMPRESSION: No evidence hydronephrosis. Chest X-Ray 09/15/18 07:05 IMPRESSION: No acute disease. Abdomen/Pelvis CT 09/15/18 08:37 IMPRESSION: 1. There is a focal area of inflammatory changes associated with the bowel just to the left of the midline as described. Possible diverticulitis. 2. Considerable fluid is present in the bowel. Cannot exclude an enteritis. Abdomen/Pelvis CT 09/17/18 00:00 IMPRESSION: Small bowel obstruction Chest X-Ray 09/17/18 00:00 IMPRESSION: 1. MINIMAL LINEAR LEFT BASILAR OPACITIES LIKELY ATELECTASIS. 2. ENTERIC TUBE TIP LIKELY OVERLIES PROXIMAL STOMACH ALTHOUGH EVALUATION LIMITED. SIDE PORT NOT IDENTIFIED. KUB X-Ray 09/17/18 00:00 IMPRESSION: Small bowel obstruction. NG tube placement. Small Bowel X-Ray 09/18/18 00:00 IMPRESSION: 1. At 3 hours, much of the contrast remains in the stomach. If clinically feasible, consider positioning patient on the right side to facilitate emptying of the stomach and better opacification of the small bowel. If this can be done, consider additional follow-up radiographs in several hours. 2. There is a small amount of contrast in several distended small bowel segments, likely small bowel obstruction. However, there is not adequate opacification to determine the transition point. KUB X-Ray 09/19/18 00:00 IMPRESSION: Small bowel obstruction. KUB X-Ray 09/20/18 00:00 IMPRESSION: Stomach decompressed by nasogastric tube. Persistent gaseous distention of small bowel out of proportion to colon from small bowel obstruction Impression/Recommendation:. 1. . Acute abdomen status post laparotomy and ileectomy for small bowel obstruction. Continue IV fluids continue antibiotics. At present patient on ventilator continue ventilator support. Note that the patient's acute dilatation of the stomach was relieved by placing the NG tube a few days ago. 2. Paroxysmal atrial fibrillation. Continue IV amiodarone infusion 3. Possibly mild exacerbation of COPD: Seems to have resolved, and the patient is back to baseline at present seems to be stable. Continue the patient on antibiotics and respiratory treatments. Continue BiPAP. Note that the patient did not want to be intubated, but there was a time it was thought that the patient was having significant significant respiratory depression and his saturations were beginning to fall. 4. Acute renal failure/injury: Nephrology on the case. Most likely secondary to infection and dehydration and atrial fibrillation with rapid ventricular response. Would recommend hydrating the patient and following nephrology advice. Note the patient GFR is improved 5. Hypertension: Blood pressure stable. Earlier the patient was hypotensive with systolic pressure of blood pressure in the 90s requiring emergent cardioversion of the atrial fibrillation with rapid ventricular response. Subsequently the patient blood pressure now is stable. 6. Coronary artery disease: Patient stable with no anginal symptoms, in spite of the patient having atrial fibrillation with rapid ventricular response. Also the patient has no evidence of non-ST elevation RI, so far. Recheck EKG and troponin I in the morning. 7. History of asthma/COPD: Continue anti-COPD treatment 8. Obstructive sleep apnea: Continue BiPAP instructed patient the importance of using BiPAP. 9. Cardiomyopathy: No evidence of heart failure. Note his last LV ejection fraction was within normal limits. 10. AICD placement: No firing of AICD. Note that the AICD was interrogated and data sent remotely to the [employer]. The pacemaker function is normal. There is been no recent AICD shocks. 11. History of depression schizoaffective disorder and posttraumatic stress disorder. 12. Morbid obesity MEDICATIONS reviewed. Medications adjusted. Management plan discussed with Dr. Norris covering the attending physician on the case. Medical decision making is of high complexity. 40 minutes spent on this patient with more than 80% time spent in direct patient care. Discussed with the surgicalist. Will follow.
[2018-09-21 18:54] LABS: ARTERIAL BLOOD BASE EXCESS 4.2 mmol/L; ARTERIAL BLOOD FIO2 30%; ARTERIAL BLOOD HCO3 26.6 mmol/L (20-24); ARTERIAL BLOOD O2 SATURATION 93.8 % (94-98); ARTERIAL BLOOD PCO2 33.3 mmHg (35-45); ARTERIAL BLOOD PH 7.52 (7.35-7.45); ARTERIAL BLOOD PO2 60.8 mmHg (80-100); ARTERIAL BLOOD TOTAL CO2 27.6 mmol/L (23-27)
--- NOTE | 2018-09-21 20:28 | RADIOLOGY REPORT (SQ) ---
EXAM DESCRIPTION: XR CHEST 1 VIEW COMPLETED DATE/TME: 09/21/2018 00:00 CLINICAL HISTORY: 63 years Male ETT placement verification COMPARISON: 09/17/2018 FINDINGS: Cardiac enlargement. Pacemaker in place. ET tube above the idalia. Nasogastric tube in place. Increased density over the lower lung mandel which in part is due to soft tissue artifact. Small effusions are suspected. IMPRESSION: Endotracheal tube above the idalia Basilar opacity which is in part due to overlying soft tissue artifact . Suspect small effusions are present
[2018-09-21 20:32] LABS: ANION GAP 5 (5-19); BLOOD UREA NITROGEN 13 mg/dL (7-20); CALCIUM 7.9 mg/dL (8.4-10.2); CARBON DIOXIDE 27 mmol/L (22-30); CHLORIDE 110 mmol/L (98-107); GLUCOSE 121 mg/dL (75-110); POTASSIUM 3.2 mmol/L (3.6-5.0); SODIUM 141.9 mmol/L (137-145)
[2018-09-21] MEDS ORDERED: NORMAL SALINE 1000 ML 1,000 ML IV ONE (21:15)
[2018-09-21] MEDS: PANTOPRAZOLE SODIUM 40 MG VIAL IV SCH (21:17)
[2018-09-21] MEDS ORDERED: POTASSI CL 20 MEQ/50 ML RIDER 20 MEQ/50 ML RTUPB IV ONE (21:30)
[2018-09-21] MEDS ORDERED: CALCIUM GLUCONATE 1000 MG/10 ML INJ IV ONE (21:30)
[2018-09-21] MEDS: ACETAMINOPHEN 650 MG SUPP.RECT PR PRN (21:54)
[2018-09-22] MEDS: METRONIDAZOLE 500 MG/NS RTU 500 MG/100 ML RTUPB IV SCH ×3 (00:05→11:28)
[2018-09-22] MEDS: DEXTROSE 5%-WATER 500 ML with AMIODARONE HCL 900 MG IV PRN ×2 (00:18)
[2018-09-22] MEDS: PROPOFOL 1,000 MG/100 ML INFUS..BTL IV PRN ×9 (00:19→23:12)
[2018-09-22] MEDS: HYDROMORPHONE HCL INJ/PF 2 MG/ML AMPULE IV PRN ×7 (02:12→23:41)
[2018-09-22] MEDS: 1/2 NORMAL SALINE 1,000 ML IV PRN ×2 (03:07→14:31)
[2018-09-22 03:53] LABS: ARTERIAL BLOOD BASE EXCESS -1.2 mmol/L; ARTERIAL BLOOD H2CO3 1.15 mmol/L (1.05-1.35); ARTERIAL BLOOD HCO3 23.2 mmol/L (20-24); ARTERIAL BLOOD O2 SATURATION 94.6 % (94-98); ARTERIAL BLOOD PCO2 38.1 mmHg (35-45); ARTERIAL BLOOD TOTAL CO2 24.3 mmol/L (23-27)
[2018-09-22 03:56] LABS: ABSOLUTE BASOPHILS # (AUTO) 0.1 10^3/uL (0.0-0.2); ABSOLUTE EOSINOPHILS # (AUTO) 0.1 10^3/uL (0.0-0.6); ABSOLUTE LYMPHOCYTES (AUTO) 1.9 10^3/uL (0.5-4.7); ABSOLUTE NEUT (AUTO) 11.7 10^3/uL (1.7-8.2); BASOPHILS % (AUTO) 0.4 % (0-2); EOSINOPHILS % (AUTO) 0.5 % (0-6); HEMATOCRIT 41.5 % (37.9-51.0); HEMOGLOBIN 13.6 g/dL (13.5-17.0); LYMPHOCYTES % (AUTO) 12.7 % (13-45); MEAN CORPUSCULAR HEMOGLOBIN 27.4 pg (27.0-33.4); MEAN CORPUSCULAR HGB CONC 32.9 g/dL (32.0-36.0); MEAN CORPUSCULAR VOLUME 83 fl (80-97); MONOCYTES % (AUTO) 6.5 % (3-13); PLATELET COUNT 108 10^3/uL (150-450); RED BLOOD COUNT 4.99 10^6/uL (4.35-5.55); RED CELL DISTRIBUTION WIDTH 16.4 % (11.5-14.0); SEGMENTED NEUTROPHILS % (AUTO) 79.9 % (42-78); TOTAL CELLS COUNTED % (AUTO) 100 %; WHITE BLOOD COUNT 14.7 10^3/uL (4.0-10.5)
[2018-09-22 03:56] LABS: ARTERIAL BLOOD FIO2 30%
[2018-09-22 04:22] LABS: ALANINE AMINOTRANSFERASE 32 U/L (21-72); ALBUMIN 2.4 g/dL (3.5-5.0); ALKALINE PHOSPHATASE 52 U/L (38-126); ANION GAP 6 (5-19); ASPARTATE AMINO TRANSFERASE 32 U/L (17-59); BILIRUBIN,DIRECT 1.3 mg/dL (0.0-0.4); BILIRUBIN,TOTAL 1.6 mg/dL (0.2-1.3); BLOOD UREA NITROGEN 13 mg/dL (7-20); CALCIUM 7.8 mg/dL (8.4-10.2); CARBON DIOXIDE 26 mmol/L (22-30); CHLORIDE 110 mmol/L (98-107); GLUCOSE 107 mg/dL (75-110); POTASSIUM 3.6 mmol/L (3.6-5.0); SODIUM 142.1 mmol/L (137-145); TOTAL PROTEIN 5.2 g/dL (6.3-8.2)
--- NOTE | 2018-09-22 07:10 | EKG REPORT ---
SEVERITY:- BORDERLINE ECG - SINUS RHYTHM BORDERLINE LEFT AXIS DEVIATION BORDERLINE T ABNORMALITIES, INFERIORAND LATERAL LEADS BORDERLINE PROLONGED QT INTERVAL : Confirmed by: Chris Barros MD 22-Sep-2018 07:10:01
--- NOTE | 2018-09-22 08:11 | PDOC PROGRESS REPORT ---
Subjective Progress Note for:: 09/22/18 Subjective:: Patient intubated; sedated Reason For Visit: ACUTE KIDNEY INJURY,PAROXYSMAL ATRIAL FIBRILLATION Physical Exam Vital Signs: Temp Pulse Resp BP Pulse Ox 99.8 F 103 H 14 114/82 92 09/22/18 03:54 09/21/18 20:41 09/22/18 06:00 09/22/18 05:38 09/22/18 06:00 Intake & Output 09/21/18 09/22/18 09/23/18 06:59 06:59 06:59 Intake Total 9650 39755 Output Total 9650 5750 Balance 0 6595 Weight 124.8 kg 130.2 kg General appearance: PRESENT: other - Sedated; support tubes in position. GI/Abdominal exam: PRESENT: other - Rotund; dressing with serosanguineous drainage; replaced. Results Laboratory Results: 09/22/18 03:15 09/22/18 03:15 09/21/18 09/21/18 09/21/18 18:44 20:05 20:05 WBC RBC Hgb Hct MCV MCH MCHC RDW Plt Count Seg Neutrophils % Lymphocytes % Monocytes % Eosinophils % Basophils % Absolute Neutrophils Absolute Lymphocytes Absolute Monocytes Absolute Eosinophils Absolute Basophils Carbonic Acid 1.00 L HCO3/H2CO3 Ratio 26:1 ABG pH 7.52 H ABG pCO2 33.3 L ABG pO2 60.8 L ABG HCO3 26.6 H ABG O2 Saturation 93.8 L ABG Base Excess 4.2 FiO2 30% Sodium 141.9 Potassium 3.2 L Chloride 110 H Carbon Dioxide 27 Anion Gap 5 BUN 13 Creatinine 1.59 H Est GFR ( Amer) 53 L Est GFR (Non-Af Amer) 44 L Glucose 121 H Lactic Acid 2.1 Calcium 7.9 L Total Bilirubin AST ALT Alkaline Phosphatase Total Protein Albumin 09/22/18 09/22/18 09/22/18 03:15 03:15 03:40 WBC 14.7 H RBC 4.99 Hgb 13.6 Hct 41.5 MCV 83 MCH 27.4 MCHC 32.9 RDW 16.4 H Plt Count 108 L Seg Neutrophils % 79.9 H Lymphocytes % 12.7 L Monocytes % 6.5 Eosinophils % 0.5 Basophils % 0.4 Absolute Neutrophils 11.7 H Absolute Lymphocytes 1.9 Absolute Monocytes 1.0 Absolute Eosinophils 0.1 Absolute Basophils 0.1 Carbonic Acid 1.15 HCO3/H2CO3 Ratio 20:1 ABG pH 7.40 ABG pCO2 38.1 ABG pO2 72.0 L ABG HCO3 23.2 ABG O2 Saturation 94.6 ABG Base Excess -1.2 FiO2 30% Sodium 142.1 Potassium 3.6 Chloride 110 H Carbon Dioxide 26 Anion Gap 6 BUN 13 Creatinine 1.79 H Est GFR ( Amer) 46 L Est GFR (Non-Af Amer) 38 L Glucose 107 Lactic Acid Calcium 7.8 L Total Bilirubin 1.6 H AST 32 ALT 32 Alkaline Phosphatase 52 Total Protein 5.2 L Albumin 2.4 L 09/15/18 09/15/18 09/15/18 07:07 13:30 13:30 Creatine Kinase 261 H CK-MB (CK-2) 1.63 Troponin I 0.015 0.021 NT-Pro-B Natriuret Pep 239 09/15/18 09/15/18 09/17/18 20:35 20:35 09:48 Creatine Kinase 855 H 1250 H CK-MB (CK-2) 6.56 H Troponin I 0.022 NT-Pro-B Natriuret Pep 09/17/18 09/22/18 09:48 03:15 Creatine Kinase CK-MB (CK-2) 3.91 Troponin I < 0.012 0.041 NT-Pro-B Natriuret Pep Impressions: Renal Ultrasound 09/15/18 00:00 IMPRESSION: No evidence hydronephrosis. Abdomen/Pelvis CT 09/17/18 00:00 IMPRESSION: Small bowel obstruction Small Bowel X-Ray 09/18/18 00:00 IMPRESSION: 1. At 3 hours, much of the contrast remains in the stomach. If clinically feasible, consider positioning patient on the right side to facilitate emptying of the stomach and better opacification of the small bowel. If this can be done, consider additional follow-up radiographs in several hours. 2. There is a small amount of contrast in several distended small bowel segments, likely small bowel obstruction. However, there is not adequate opacification to determine the transition point. KUB X-Ray 09/20/18 00:00 IMPRESSION: Stomach decompressed by nasogastric tube. Persistent gaseous distention of small bowel out of proportion to colon from small bowel obstruction Chest X-Ray 09/21/18 00:00 IMPRESSION: Endotracheal tube above the idalia Basilar opacity which is in part due to overlying soft tissue artifact . Suspect small effusions are present Assessment & Plan - Diagnosis (1) Status post small bowel resection Is this a current diagnosis for this admission?: Yes Plan: Impression: Patient is 1 day status post ileocecectomy, open, stenotic terminal ileum; final path pending; patient remains in the intensive care unit, sedated, on the ventilator; hemodynamically stable, no pressors; difficult to ascertain urine output secondary to bladder irrigations Recommendations: 1. Creatinine rising; may get nephrology input 2. If patient to remain intubated for several days, would consider starting enteral support.
[2018-09-22] MEDS: PANTOPRAZOLE SODIUM 40 MG VIAL IV SCH ×2 (09:12→21:43)
[2018-09-22] MEDS: ENOXAPARIN SODIUM INJ 40 MG/0.4 ML DISP.SYRIN SUBCUT SCH (09:12)
[2018-09-22] MEDS: CEFTRIAXONE SODIUM 1,000 MG in DEXTROSE 5%-WATER 50 ML IV SCH (09:41)
[2018-09-22] MEDS: ACETAMINOPHEN 650 MG SUPP.RECT PR PRN ×2 (14:11→20:36)
--- NOTE | 2018-09-22 21:11 | PDOC PROGRESS REPORT ---
Subjective Progress Note for:: 09/22/18 Subjective:: Patient on mechanical ventilation intubated status post laparotomy Reason For Visit: ACUTE KIDNEY INJURY,PAROXYSMAL ATRIAL FIBRILLATION Physical Exam Vital Signs: Temp Pulse Resp BP Pulse Ox 101.1 F H 100 15 99/70 L 91 L 09/22/18 20:00 09/22/18 18:00 09/22/18 18:00 09/22/18 18:00 09/22/18 18:00 Intake & Output 09/21/18 09/22/18 09/23/18 06:59 06:59 06:59 Intake Total 9650 81334 3600 Output Total 9650 5750 5425 Balance 0 6595 1245 Weight 124.8 kg 130.2 kg General appearance: PRESENT: no acute distress Eye exam: PRESENT: PERRLA Respiratory exam: PRESENT: clear to auscultation martita Cardiovascular exam: PRESENT: +S1, +S2 GI/Abdominal exam: PRESENT: soft Results Laboratory Results: 09/22/18 03:15 09/22/18 03:15 09/22/18 09/22/18 09/22/18 03:15 03:15 03:40 WBC 14.7 H RBC 4.99 Hgb 13.6 Hct 41.5 MCV 83 MCH 27.4 MCHC 32.9 RDW 16.4 H Plt Count 108 L Seg Neutrophils % 79.9 H Lymphocytes % 12.7 L Monocytes % 6.5 Eosinophils % 0.5 Basophils % 0.4 Absolute Neutrophils 11.7 H Absolute Lymphocytes 1.9 Absolute Monocytes 1.0 Absolute Eosinophils 0.1 Absolute Basophils 0.1 Carbonic Acid 1.15 HCO3/H2CO3 Ratio 20:1 ABG pH 7.40 ABG pCO2 38.1 ABG pO2 72.0 L ABG HCO3 23.2 ABG O2 Saturation 94.6 ABG Base Excess -1.2 FiO2 30% Sodium 142.1 Potassium 3.6 Chloride 110 H Carbon Dioxide 26 Anion Gap 6 BUN 13 Creatinine 1.79 H Est GFR ( Amer) 46 L Est GFR (Non-Af Amer) 38 L Glucose 107 Calcium 7.8 L Total Bilirubin 1.6 H AST 32 ALT 32 Alkaline Phosphatase 52 Total Protein 5.2 L Albumin 2.4 L 09/15/18 09/15/18 09/15/18 07:07 13:30 13:30 Creatine Kinase 261 H CK-MB (CK-2) 1.63 Troponin I 0.015 0.021 NT-Pro-B Natriuret Pep 239 09/15/18 09/15/18 09/17/18 20:35 20:35 09:48 Creatine Kinase 855 H 1250 H CK-MB (CK-2) 6.56 H Troponin I 0.022 NT-Pro-B Natriuret Pep 09/17/18 09/22/18 09:48 03:15 Creatine Kinase CK-MB (CK-2) 3.91 Troponin I < 0.012 0.041 NT-Pro-B Natriuret Pep Impressions: Renal Ultrasound 09/15/18 00:00 IMPRESSION: No evidence hydronephrosis. Abdomen/Pelvis CT 09/17/18 00:00 IMPRESSION: Small bowel obstruction Small Bowel X-Ray 09/18/18 00:00 IMPRESSION: 1. At 3 hours, much of the contrast remains in the stomach. If clinically feasible, consider positioning patient on the right side to facilitate emptying of the stomach and better opacification of the small bowel. If this can be done, consider additional follow-up radiographs in several hours. 2. There is a small amount of contrast in several distended small bowel segments, likely small bowel obstruction. However, there is not adequate opacification to determine the transition point. KUB X-Ray 09/20/18 00:00 IMPRESSION: Stomach decompressed by nasogastric tube. Persistent gaseous distention of small bowel out of proportion to colon from small bowel obstruction Chest X-Ray 09/21/18 00:00 IMPRESSION: Endotracheal tube above the idalia Basilar opacity which is in part due to overlying soft tissue artifact . Suspect small effusions are present Assessment & Plan - Diagnosis (1) Acute kidney injury Is this a current diagnosis for this admission?: Yes (2) Acute diverticulitis Is this a current diagnosis for this admission?: Yes (3) Atrial fibrillation with RVR Is this a current diagnosis for this admission?: Yes (4) Morbid obesity due to excess calories Is this a current diagnosis for this admission?: Yes (5) Hypotension Qualifiers: Hypotension type: unspecified hypotension type Qualified Code(s): I95.9 - Hypotension, unspecified Is this a current diagnosis for this admission?: Yes (6) Small bowel obstruction Is this a current diagnosis for this admission?: Yes (7) Hypernatremia Is this a current diagnosis for this admission?: Yes (8) Respiratory failure Qualifiers: Chronicity: unspecified Respiratory failure complication: unspecified whether with hypoxia or hypercapnia Qualified Code(s): J96.90 - Respiratory failure, unspecified, unspecified whether with hypoxia or hypercapnia Is this a current diagnosis for this admission?: Yes Plan: Patient on mechanical ventilation stable on present setting, no pulmonary on the case, we will initiate weaning trials in a.m.
--- NOTE | 2018-09-22 22:22 | Progress Note ---
Provider Note Provider Note: CARDIOLOGY PROGRESS NOTE by Dr. son S1 on 09/22/2018. SUBJECTIVE: The patient is intubated and sedated. The patient remains in sinus rhythm. He the patient is on amiodarone drip. Note that the patient creatinine is rising. And his urine output is decreasing. There is no ventricular arrhythmia seen on the monitor. PHYSICAL EXAMINATION: The patient is morbidly obese. He is on is intubated and sedated. Support lines in place. Selected Entries 09/22/18 12:00 Temperature 97.7 F Temperature Core Source Pulse Rate 107 H Respiratory 13 Rate Blood Pressure 120/75 [Left Upper Arm ] Blood Pressure 90 Mean [Left Upper Arm] Blood Pressure Supine Position [Left Upper Arm] O2 Sat by Pulse 99 Oximetry Oxygen Delivery Mechanical Method ( Ventilator includes room air) Fraction of 30 Inspired Oxygen (FIO2) HEAD: Is atraumatic normocephalic. EYES: Pupils are equal round regular reactive light accommodation. Extraocular movements are normal. There is no conjunctival pallor. There is no scleral icterus. EARS: Tympanic memories are intact. External auditory canals are clear. NOSE: There is no deviated nasal septum. There is no inflammation of the nasal mucous membrane. MOUTH: Mucous membranes of mouth are moist. Tongue is moist. There is no ulcers there is no bleeding from the gums. Throat: There is no redness of the oropharynx. There is no exudates. SKIN: There is no skin rashes or skin lesions. There is no petechia or ecchymosis. NECK: Supple. There is no JVD. Carotids are equal there is no bruit. There is no accessory muscles of respiration use. Trachea central. LUNGS: There is diminished air entry prolonged expiration. There is a few scattered rhonchi. There is no wheezing or rales. On percussion there is hyperresonance. On palpation there is no chest wall tenderness. HEART: S1-S2 is heard S1 is of normal intensity. There is no S3 gallop there is no S4 gallop. There is systolic murmur left sternal border and the apex there is no rub. ABDOMEN: Is soft. The dressing is dry and clean. There is no hepat osplenomegaly. Bowel sounds are absent. EXTREMITIES: Femorals are diminished there is no femoral bruits. Leg pulses are diminished. There is no pedal edema, and no evidence of DVT.. CLOTH DOFFER and PSYCHIATRIC exam not performed, since the patient is intubated and sedated. Labs- All tests 24 hr 09/22/18 09/22/18 09/22/18 03:15 03:15 03:15 WBC 14.7 H RBC 4.99 Hgb 13.6 Hct 41.5 MCV 83 MCH 27.4 MCHC 32.9 RDW 16.4 H Plt Count 108 L Seg Neutrophils % 79.9 H Lymphocytes % 12.7 L Monocytes % 6.5 Eosinophils % 0.5 Basophils % 0.4 Absolute Neutrophils 11.7 H Absolute Lymphocytes 1.9 Absolute Monocytes 1.0 Absolute Eosinophils 0.1 Absolute Basophils 0.1 Carbonic Acid HCO3/H2CO3 Ratio ABG pH ABG pCO2 ABG pO2 ABG HCO3 ABG Total CO2 ABG O2 Saturation ABG Base Excess FiO2 Sodium 142.1 Potassium 3.6 Chloride 110 H Carbon Dioxide 26 Anion Gap 6 BUN 13 Creatinine 1.79 H Est GFR ( Amer) 46 L Est GFR (Non-Af Amer) 38 L Glucose 107 Calcium 7.8 L Total Bilirubin 1.6 H Direct Bilirubin 1.3 H Neonat Total Bilirubin Not Reportable Neonat Direct Bilirubin Not Reportable Neonat Indirect Bili Not Reportable AST 32 ALT 32 Alkaline Phosphatase 52 Troponin I 0.041 Total Protein 5.2 L Albumin 2.4 L 09/22/18 03:40 WBC RBC Hgb Hct MCV MCH MCHC RDW Plt Count Seg Neutrophils % Lymphocytes % Monocytes % Eosinophils % Basophils % Absolute Neutrophils Absolute Lymphocytes Absolute Monocytes Absolute Eosinophils Absolute Basophils Carbonic Acid 1.15 HCO3/H2CO3 Ratio 20:1 ABG pH 7.40 ABG pCO2 38.1 ABG pO2 72.0 L ABG HCO3 23.2 ABG Total CO2 24.3 ABG O2 Saturation 94.6 ABG Base Excess -1.2 FiO2 30% Sodium Potassium Chloride Carbon Dioxide Anion Gap BUN Creatinine Est GFR ( Amer) Est GFR (Non-Af Amer) Glucose Calcium Total Bilirubin Direct Bilirubin Neonat Total Bilirubin Neonat Direct Bilirubin Neonat Indirect Bili AST ALT Alkaline Phosphatase Troponin I Total Protein Albumin Renal Ultrasound 09/15/18 00:00 IMPRESSION: No evidence hydronephrosis. Chest X-Ray 09/15/18 07:05 IMPRESSION: No acute disease. Abdomen/Pelvis CT 09/15/18 08:37 IMPRESSION: 1. There is a focal area of inflammatory changes associated with the bowel just to the left of the midline as described. Possible diverticulitis. 2. Considerable fluid is present in the bowel. Cannot exclude an enteritis. Abdomen/Pelvis CT 09/17/18 00:00 IMPRESSION: Small bowel obstruction Chest X-Ray 09/17/18 00:00 IMPRESSION: 1. MINIMAL LINEAR LEFT BASILAR OPACITIES LIKELY ATELECTASIS. 2. ENTERIC TUBE TIP LIKELY OVERLIES PROXIMAL STOMACH ALTHOUGH EVALUATION LIMITED. SIDE PORT NOT IDENTIFIED. KUB X-Ray 09/17/18 00:00 IMPRESSION: Small bowel obstruction. NG tube placement. Small Bowel X-Ray 09/18/18 00:00 IMPRESSION: 1. At 3 hours, much of the contrast remains in the stomach. If clinically feasible, consider positioning patient on the right side to facilitate emptying of the stomach and better opacification of the small bowel. If this can be done, consider additional follow-up radiographs in several hours. 2. There is a small amount of contrast in several distended small bowel segments, likely small bowel obstruction. However, there is not adequate opacification to determine the transition point. KUB X-Ray 09/19/18 00:00 IMPRESSION: Small bowel obstruction. KUB X-Ray 09/20/18 00:00 IMPRESSION: Stomach decompressed by nasogastric tube. Persistent gaseous distention of small bowel out of proportion to colon from small bowel obstruction Chest X-Ray 09/21/18 00:00 IMPRESSION: Endotracheal tube above the idalia Basilar opacity which is in part due to overlying soft tissue artifact . Suspect small effusions are present Impression/Recommendation:. 1. . Acute abdomen status post laparotomy and ileectomy for small bowel obstruction. Continue IV fluids continue antibiotics. At present patient on ventilator continue ventilator support. Note that the patient's acute dilatation of the stomach was relieved by placing the NG tube a few days ago. 2. Paroxysmal atrial fibrillation. Continue IV amiodarone infusion 3. Possibly mild exacerbation of COPD: Seems to have resolved, and the patient is back to baseline at present seems to be stable. Continue the patient on antibiotics and respiratory treatments. Continue BiPAP. Note that the patient did not want to be intubated, but there was a time it was thought that the patient was having significant significant respiratory depression and his saturations were beginning to fall. 4. Acute renal failure/injury: Nephrology on the case. Most likely secondary to infection and dehydration and atrial fibrillation with rapid ventricular response. Would recommend hydrating the patient and following nephrology advice. His creatinine is rising. His urine output is decreased. Will observe and subsequently see if it can give him a bolus of normal saline with Lasix. 5. Hypertension: Blood pressure stable. Earlier the patient was hypotensive with systolic pressure of blood pressure in the 90s requiring emergent cardioversion of the atrial fibrillation with rapid ventricular response. Subsequently the patient blood pressure now is stable. 6. Coronary artery disease: Patient stable with no anginal symptoms, in spite of the patient having atrial fibrillation with rapid ventricular response. Also the patient has no evidence of non-ST elevation ND, so far. Recheck EKG and troponin I in the morning. 7. History of asthma/COPD: Continue anti-COPD treatment 8. Obstructive sleep apnea: Continue BiPAP instructed patient the importance of using BiPAP. 9. Cardiomyopathy: No evidence of heart failure. Note his last LV ejection fraction was within normal limits. 10. AICD placement: No firing of AICD. Note that the AICD was interrogated and data sent remotely to the [employer]. The pacemaker function is normal. There is been no recent AICD shocks. 11. History of depression schizoaffective disorder and posttraumatic stress disorder. 12. Morbid obesity MEDICATIONS reviewed. Medications adjusted. Management plan discussed with Dr. Ayala the attending physician on the case. Medical decision making is of high complexity. 40 minutes spent on this patient with more than 80% time spent in direct patient care. Discussed with the surgicalist. Will follow.
[2018-09-23] MEDS ORDERED: FUROSEMIDE INJ/PF 40 MG/4 ML SDV ONE ×2 (00:07→21:47)
[2018-09-23] MEDS ORDERED: FUROSEMIDE IV ONE (00:20)
[2018-09-23] MEDS ORDERED: NORMAL SALINE IV ONE (00:20)
[2018-09-23] MEDS: 1/2 NORMAL SALINE 1,000 ML IV PRN ×2 (00:33→09:12)
[2018-09-23] MEDS: PROPOFOL 1,000 MG/100 ML INFUS..BTL IV PRN ×7 (01:58→22:25)
[2018-09-23] MEDS: HYDROMORPHONE HCL INJ/PF 2 MG/ML AMPULE IV PRN ×8 (03:26→21:14)
--- NOTE | 2018-09-23 06:31 | RADIOLOGY REPORT (SQ) ---
EXAM DESCRIPTION: XR CHEST 1 VIEW COMPLETED DATE/TME: 09/23/2018 06:00 CLINICAL HISTORY: 63 years Male, resp failure COMPARISON: 2 days prior. NUMBER OF VIEWS/TECHNIQUE: 1/AP FINDINGS: Moderate patchy opacity of the left lower lung field, mild central edema pattern, small linear atelectasis or scar of the right lower lung.Adequate appearing endotracheal tube. Adequate appearing enteric tube with tip at the left upper abdominal quadrant. Left cardiac stimulator with leads. Mildly enlarged cardiac silhouette. No pneumothorax. Stable bony thorax. IMPRESSION: No significant change.
[2018-09-23 06:33] LABS: HEMATOCRIT 38.1 % (37.9-51.0); HEMOGLOBIN 12.4 g/dL (13.5-17.0); MEAN CORPUSCULAR HEMOGLOBIN 27.1 pg (27.0-33.4); MEAN CORPUSCULAR HGB CONC 32.6 g/dL (32.0-36.0); MEAN CORPUSCULAR VOLUME 83 fl (80-97); RED BLOOD COUNT 4.58 10^6/uL (4.35-5.55); RED CELL DISTRIBUTION WIDTH 16.6 % (11.5-14.0); WHITE BLOOD COUNT 22.8 10^3/uL (4.0-10.5)
[2018-09-23 06:56] LABS: ANION GAP 5 (5-19); BLOOD UREA NITROGEN 22 mg/dL (7-20); CALCIUM 7.5 mg/dL (8.4-10.2); CARBON DIOXIDE 26 mmol/L (22-30); CHLORIDE 107 mmol/L (98-107); GLUCOSE 117 mg/dL (75-110); POTASSIUM 3.8 mmol/L (3.6-5.0); SODIUM 138.3 mmol/L (137-145)
[2018-09-23 07:08] LABS: ARTERIAL BLOOD BASE EXCESS 0.6 mmol/L; ARTERIAL BLOOD H2CO3 1.33 mmol/L (1.05-1.35); ARTERIAL BLOOD HCO3 25.8 mmol/L (20-24); ARTERIAL BLOOD O2 SATURATION 97.8 % (94-98); ARTERIAL BLOOD PCO2 44.3 mmHg (35-45); ARTERIAL BLOOD PH 7.38 (7.35-7.45); ARTERIAL BLOOD PO2 106.9 mmHg (80-100); ARTERIAL BLOOD TOTAL CO2 27.2 mmol/L (23-27)
[2018-09-23 07:11] LABS: PLATELET COUNT 79 10^3/uL (150-450)
[2018-09-23 07:13] LABS: ABSOLUTE MONOCYTES # (MANUAL) 0.7 10^3/uL (0.1-1.4); ABSOLUTE NEUTROPHILS# (MANUAL) 18.7 10^3/uL (1.7-8.2); BASOPHILS % (MANUAL) 0 % (0-2); EOSINOPHILS % (MANUAL) 2 % (0-6); LYMPHOCYTES % (MANUAL) 13 % (13-45); MONOCYTES % (MANUAL) 3 % (3-13); SEGMENTED NEUTROPHILS % (MAN) 82 % (42-78); TOTAL CELLS COUNTED 100
[2018-09-23 07:21] LABS: PLATELET COMMENT DECREASED
[2018-09-23 07:22] LABS: OVALOCYTES SLIGHT; SCHISTOCYTES SLIGHT
[2018-09-23 07:23] LABS: ANISOCYTOSIS 1+
[2018-09-23 07:24] LABS: ARTERIAL BLOOD FIO2 50%
[2018-09-23] MEDS: DEXTROSE 5%-WATER 500 ML with AMIODARONE HCL 900 MG IV PRN ×2 (08:02)
[2018-09-23] MEDS: CEFTRIAXONE SODIUM 1,000 MG in DEXTROSE 5%-WATER 50 ML IV SCH (09:12)
[2018-09-23] MEDS: ENOXAPARIN SODIUM INJ 40 MG/0.4 ML DISP.SYRIN SUBCUT SCH (09:13)
[2018-09-23] MEDS: PANTOPRAZOLE SODIUM 40 MG VIAL IV SCH (09:13)
[2018-09-23] MEDS ORDERED: NORMAL SALINE 1000 ML 1,000 ML IV ONE (12:30)
--- NOTE | 2018-09-23 14:29 | PDOC PROGRESS REPORT ---
Subjective Progress Note for:: 09/23/18 Subjective:: Intubated and sedated. Reason For Visit: ACUTE KIDNEY INJURY,PAROXYSMAL ATRIAL FIBRILLATION Physical Exam Vital Signs: Temp Pulse Resp BP Pulse Ox 100.6 F H 87 15 98/63 L 93 09/23/18 10:00 09/23/18 10:00 09/23/18 10:00 09/23/18 10:00 09/23/18 10:00 Intake & Output 09/22/18 09/23/18 09/24/18 06:59 06:59 06:59 Intake Total 61346 5382 2000 Output Total 5750 2395 400 Balance 6595 2987 1600 Weight 130.2 kg 132.1 kg Respiratory exam: PRESENT: rhonchi Cardiovascular exam: PRESENT: RRR GI/Abdominal exam: PRESENT: other - Soft and nondistended, no obvious tenderness with deep palpation, wound clean dry and intact. Drain output is serosanguineous. Results Laboratory Results: 09/23/18 06:02 09/23/18 06:02 09/23/18 09/23/18 09/23/18 05:31 06:02 06:02 WBC 22.8 H RBC 4.58 Hgb 12.4 L Hct 38.1 MCV 83 MCH 27.1 MCHC 32.6 RDW 16.6 H Plt Count 79 L Seg Neutrophils % Not Reportable Lymphocytes % Not Reportable Monocytes % Not Reportable Eosinophils % Not Reportable Basophils % Not Reportable Absolute Neutrophils Not Reportable Absolute Lymphocytes Not Reportable Absolute Monocytes Not Reportable Absolute Eosinophils Not Reportable Absolute Basophils Not Reportable Carbonic Acid 1.33 HCO3/H2CO3 Ratio 19:1 ABG pH 7.38 ABG pCO2 44.3 ABG pO2 106.9 H ABG HCO3 25.8 H ABG O2 Saturation 97.8 ABG Base Excess 0.6 FiO2 50% Sodium 138.3 Potassium 3.8 Chloride 107 Carbon Dioxide 26 Anion Gap 5 BUN 22 H Creatinine 3.72 H Est GFR ( Amer) 20 L Est GFR (Non-Af Amer) 17 L Glucose 117 H Calcium 7.5 L 09/15/18 09/15/18 09/15/18 07:07 13:30 13:30 Creatine Kinase 261 H CK-MB (CK-2) 1.63 Troponin I 0.015 0.021 NT-Pro-B Natriuret Pep 239 09/15/18 09/15/18 09/17/18 20:35 20:35 09:48 Creatine Kinase 855 H 1250 H CK-MB (CK-2) 6.56 H Troponin I 0.022 NT-Pro-B Natriuret Pep 09/17/18 09/22/18 09:48 03:15 Creatine Kinase CK-MB (CK-2) 3.91 Troponin I < 0.012 0.041 NT-Pro-B Natriuret Pep Impressions: Renal Ultrasound 09/15/18 00:00 IMPRESSION: No evidence hydronephrosis. Abdomen/Pelvis CT 09/17/18 00:00 IMPRESSION: Small bowel obstruction Small Bowel X-Ray 09/18/18 00:00 IMPRESSION: 1. At 3 hours, much of the contrast remains in the stomach. If clinically feasible, consider positioning patient on the right side to facilitate emptying of the stomach and better opacification of the small bowel. If this can be done, consider additional follow-up radiographs in several hours. 2. There is a small amount of contrast in several distended small bowel segments, likely small bowel obstruction. However, there is not adequate opacification to determine the transition point. KUB X-Ray 09/20/18 00:00 IMPRESSION: Stomach decompressed by nasogastric tube. Persistent gaseous distention of small bowel out of proportion to colon from small bowel obstruction Chest X-Ray 09/23/18 06:00 IMPRESSION: No significant change. Assessment & Plan - Diagnosis (1) Small bowel obstruction Is this a current diagnosis for this admission?: Yes Plan: Status post ileocecectomy. Patient with acute renal failure. Able to irrigate via Ald[place] without difficulty. It is not a postobstructive renal failure. Will give a fluid bolus and will await nephrology input. Although his intubation status makes abdominal exam difficult, abdomen is very soft, nondistended with no apparent tenderness with serosanguineous output through the drain. I do not think he has abdominal sepsis. He does have pulmonary opacities. Need to consider broadening out his antibiotic coverage. Will defer to medicine concerning antibiotic coverage.
[2018-09-23] MEDS ORDERED: IMIPENEM/CILASTATIN SODIUM 250 MG in NORMAL SALINE 100 ML IV SCH (16:00)
--- NOTE | 2018-09-23 16:10 | PDOC PROGRESS REPORT ---
Subjective Progress Note for:: 09/23/18 Reason For Visit: Chart reviewed. Discussions were done with Dr. Jon and the treating ICU nurse. This is a 63 years old male with known history of paroxysmal atrial fibrillation, hypertension, coronary artery disease, remote history of OR, history of congestive heart failure, and history of sleep apnea but does not use CPAP admitted On 09/15 with abdominal distention and severe abdominal pain. In the emergency room the patient developed atrial fibrillation with rapid ventricular response and was also hypotensive. He therefore underwent emergency cardioversion and was successfully cardioverted, and subsequently started on amiodarone drip after bolus. He under went open laparotomy on the for acute small bowel obstruction from stricture. He had another event of decompensated A. fib and was cardioverted again soon after surgery as well. Today he is postop day 3. Reviewing his labs and his hemodynamics over the last few days, the patient has come rather hypotensive over the last 24 hours. His urine output has also began to drop. His white count has doubled to 22+ along with the rapid declining renal numbers. His baseline creatinine is around 1.2. On admission on the his creatinine was 4.2 and it went down to 1.4 as of the . However as of yesterday it was 1.7 and today is 3.7.He was having borderline hypokalemia it seems to be corrected today and is now 3.8. Unfortunately patient is completely anuric as of today. Reviewed previous ultrasound as well as CT scans done. He had his urinary catheter flushed today which was not showing any signs of obstruction.Reviewed his medications and is not on any nephrotoxic drugs in the form of antibiotics or others.Chest x-ray shows moderate opacity in the left lower lung. PAST MEDICAL HISTORY: History of coronary artery disease. History of remote myocardial infarction, hypertension, atrial fibrillation and apparently on Xarelto at home, CHF/ Cardiomyopathy with history of AICD placement,history of CVA with the dysarthria, asthma / COPD, Seep apnea but is not compliant with CPAP, DJD. There is no history of chronic kidney disease. Patient has acute renal failure at present.Besides these he also has a history of Schizo- affective disorder posttraumatic stress disorder and depression. He had multiple CT scans initially on the and then on the which showed severe dilatation of the stomach and the small bowel to the terminal ileum. He underwent open laparotomy on the and had a ileal- cecectomy for distal small bowel stricture, with [id number] stapled ileocolic anastomosis. Physical Exam Vital Signs: Temp Pulse Resp BP Pulse Ox 100.1 F 93 16 131/83 H 91 L 09/23/18 14:55 09/23/18 14:55 09/23/18 14:55 09/23/18 14:55 09/23/18 14:55 Intake & Output 09/22/18 09/23/18 09/24/18 06:59 06:59 06:59 Intake Total 82905 5382 3081 Output Total 5750 2395 400 Balance 6595 2987 2681 Weight 130.2 kg 132.1 kg Exam: Remains intubated and sedated. Has Aldana catheter in his bladder. Abdomen is wrapped with binders and he has got a direct the drainage tube. Respiratory exam: PRESENT: chest wall tenderness. ABSENT: decreased breath sounds GI/Abdominal exam: PRESENT: distended, firm - Soft-firm. ABSENT: normal bowel sounds Extremities exam: ABSENT: pedal edema Neurological exam: PRESENT: altered - Currently intubated and sedated. Skin exam: ABSENT: cyanosis, erythema, mottled, rash Results Laboratory Results: 09/23/18 06:02 09/23/18 06:02 09/23/18 09/23/18 09/23/18 05:31 06:02 06:02 WBC 22.8 H RBC 4.58 Hgb 12.4 L Hct 38.1 MCV 83 MCH 27.1 MCHC 32.6 RDW 16.6 H Plt Count 79 L Seg Neutrophils % Not Reportable Lymphocytes % Not Reportable Monocytes % Not Reportable Eosinophils % Not Reportable Basophils % Not Reportable Absolute Neutrophils Not Reportable Absolute Lymphocytes Not Reportable Absolute Monocytes Not Reportable Absolute Eosinophils Not Reportable Absolute Basophils Not Reportable Carbonic Acid 1.33 HCO3/H2CO3 Ratio 19:1 ABG pH 7.38 ABG pCO2 44.3 ABG pO2 106.9 H ABG HCO3 25.8 H ABG O2 Saturation 97.8 ABG Base Excess 0.6 FiO2 50% Sodium 138.3 Potassium 3.8 Chloride 107 Carbon Dioxide 26 Anion Gap 5 BUN 22 H Creatinine 3.72 H Est GFR ( Amer) 20 L Est GFR (Non-Af Amer) 17 L Glucose 117 H Calcium 7.5 L 09/15/18 09/15/18 09/15/18 07:07 13:30 13:30 Creatine Kinase 261 H CK-MB (CK-2) 1.63 Troponin I 0.015 0.021 NT-Pro-B Natriuret Pep 239 09/15/18 09/15/18 09/17/18 20:35 20:35 09:48 Creatine Kinase 855 H 1250 H CK-MB (CK-2) 6.56 H Troponin I 0.022 NT-Pro-B Natriuret Pep 09/17/18 09/22/18 09:48 03:15 Creatine Kinase CK-MB (CK-2) 3.91 Troponin I < 0.012 0.041 NT-Pro-B Natriuret Pep Impressions: Renal Ultrasound 09/15/18 00:00 IMPRESSION: No evidence hydronephrosis. Abdomen/Pelvis CT 09/17/18 00:00 IMPRESSION: Small bowel obstruction Small Bowel X-Ray 09/18/18 00:00 IMPRESSION: 1. At 3 hours, much of the contrast remains in the stomach. If clinically feasible, consider positioning patient on the right side to facilitate emptying of the stomach and better opacification of the small bowel. If this can be done, consider additional follow-up radiographs in several hours. 2. There is a small amount of contrast in several distended small bowel segments, likely small bowel obstruction. However, there is not adequate opacification to determine the transition point. KUB X-Ray 09/20/18 00:00 IMPRESSION: Stomach decompressed by nasogastric tube. Persistent gaseous distention of small bowel out of proportion to colon from small bowel obstruction Chest X-Ray 09/23/18 06:00 IMPRESSION: No significant change. Assessment & Plan - Diagnosis (1) Acute kidney injury Is this a current diagnosis for this admission?: Yes Plan: Is completely anuric as of today. Concerning is his rapidly rising white count along with the initial early hypotensive episodes, acute worsening renal functions as indicative of the patient going into septic shock. Given his atrial fibrillation and cardioversion one might also have to think about throm boembolic phenomena. However it is extremely unlikely to have involved both the kidneys at the same time and would not explain his rapidly rising leucoytosis and hypotensive episodes. Abdomen looks rather benign at the moment. However that does not preclude to a developing intra abdominal infection.Other sources to exclude includes stasis pneumonia and such. Get labs stat. Revise antibiotics to be more broad-spectrum including to cover intra-abdominal pathogens. Will make corrections on fluid and rate of flow.Monitor electrolytes especially potassium to prevent postop ileus as a nonobstructive cause of obstruction.We will also check lactic acid levels. Currently no acute indications for renal replacements. However his clinical picture is quite worrisome for the need of eventual renal replacements at some point down the road soon sooner than later. Discussed the patient with the treating ICU nurse. (2) Atrial fibrillation with RVR Is this a current diagnosis for this admission?: Yes Plan: On amiodarone IV now. However patient seems to be in and out of atrial flutter. (3) Hypotension Qualifiers: Hypotension type: unspecified hypotension type Qualified Code(s): I95.9 - Hypotension, unspecified Is this a current diagnosis for this admission?: Yes Plan: Currently normotensive at the moment. Will make changes in IV fluids and maintain blood pressure systolic in the in the 110 systolic range if possible. If not we will have to start thinking about adding pressors at some point. (4) Morbid obesity due to excess calories Is this a current diagnosis for this admission?: Yes (5) Respiratory failure Qualifiers: Chronicity: acute Respiratory failure complication: hypoxia Qualified Code(s): J96.01 - Acute respiratory failure with hypoxia Is this a current diagnosis for this admission?: Yes Plan: Currently postop day 3. Intubated and sedated. (6) Small bowel obstruction Is this a current diagnosis for this admission?: Yes Plan: Secondary to apparent terminal ileal stricture.Underwent ileocecectomy and ileoc olic anastomosis Dr. Pope did not see any evidences to indicate any thromboembolic event of the small bowel intraoperatively. Currently postop day 3. (7) Hypokalemia Plan: Monitor.
[2018-09-23] MEDS: NORMAL SALINE 1000 ML 1,000 ML with POTASSIUM CHLORIDE 20 MEQ IV PRN ×4 (16:29→21:30)
[2018-09-23 16:34] LABS: ALANINE AMINOTRANSFERASE 32 U/L (21-72); ALBUMIN 2.2 g/dL (3.5-5.0); ALKALINE PHOSPHATASE 56 U/L (38-126); ANION GAP 7 (5-19); ASPARTATE AMINO TRANSFERASE 28 U/L (17-59); BILIRUBIN,DIRECT 1.4 mg/dL (0.0-0.4); BILIRUBIN,TOTAL 1.5 mg/dL (0.2-1.3); BLOOD UREA NITROGEN 25 mg/dL (7-20); CALCIUM 7.3 mg/dL (8.4-10.2); CARBON DIOXIDE 23 mmol/L (22-30); CHLORIDE 106 mmol/L (98-107); GLUCOSE 107 mg/dL (75-110); POTASSIUM 3.9 mmol/L (3.6-5.0); SODIUM 136.4 mmol/L (137-145)
[2018-09-23] MEDS: IMIPENEM/CILASTATIN SODIUM 250 MG in NORMAL SALINE 100 ML IV SCH (18:12)
[2018-09-23] MEDS: DOBUTAMINE HCL/D5W 500 MG/250 ML RTUINJ IV PRN (18:55)
[2018-09-23] MEDS ORDERED: DILTIAZEM HCL/D5W 125 MG/125 ML RTUINJ IV ONE (20:25)
[2018-09-23] MEDS: DILTIAZEM HCL/D5W 125 MG/125 ML RTUINJ IV PRN (20:36)
[2018-09-23] MEDS: NORMAL SALINE 1000 ML 1,000 ML IV PRN (21:30)
[2018-09-23 21:40] LABS: ARTERIAL BLOOD BASE EXCESS -3.7 mmol/L; ARTERIAL BLOOD HCO3 22.7 mmol/L (20-24); ARTERIAL BLOOD O2 SATURATION 96.3 % (94-98); ARTERIAL BLOOD PCO2 46.6 mmHg (35-45); ARTERIAL BLOOD PH 7.31 (7.35-7.45); ARTERIAL BLOOD PO2 92.5 mmHg (80-100); ARTERIAL BLOOD TOTAL CO2 24.2 mmol/L (23-27)
[2018-09-23 21:41] LABS: ARTERIAL BLOOD FIO2 80%
[2018-09-23] MEDS ORDERED: FUROSEMIDE INJ/PF 40 MG/4 ML SDV IV ONE (22:00)
--- NOTE | 2018-09-23 22:38 | PDOC PROGRESS REPORT ---
Subjective Progress Note for:: 09/23/18 Subjective:: Patient is sedated on mechanical ventilation Reason For Visit: ACUTE KIDNEY INJURY,PAROXYSMAL ATRIAL FIBRILLATION Physical Exam Vital Signs: Temp Pulse Resp BP Pulse Ox 101.4 F H 99 19 122/76 92 09/23/18 20:00 09/23/18 18:00 09/23/18 18:00 09/23/18 18:00 09/23/18 20:40 Intake & Output 09/22/18 09/23/18 09/24/18 06:59 06:59 06:59 Intake Total 81853 5372 3866 Output Total 5791 1522 1106 Balance 6577 2644 1280 Weight 130.2 kg 132.1 kg Respiratory exam: PRESENT: clear to auscultation martita Cardiovascular exam: PRESENT: +S1, +S2 GI/Abdominal exam: PRESENT: soft Results Laboratory Results: 09/23/18 06:02 09/23/18 15:57 09/23/18 09/23/18 09/23/18 05:31 06:02 06:02 WBC 22.8 H RBC 4.58 Hgb 12.4 L Hct 38.1 MCV 83 MCH 27.1 MCHC 32.6 RDW 16.6 H Plt Count 79 L Seg Neutrophils % Not Reportable Lymphocytes % Not Reportable Monocytes % Not Reportable Eosinophils % Not Reportable Basophils % Not Reportable Absolute Neutrophils Not Reportable Absolute Lymphocytes Not Reportable Absolute Monocytes Not Reportable Absolute Eosinophils Not Reportable Absolute Basophils Not Reportable Carbonic Acid 1.33 HCO3/H2CO3 Ratio 19:1 ABG pH 7.38 ABG pCO2 44.3 ABG pO2 106.9 H ABG HCO3 25.8 H ABG O2 Saturation 97.8 ABG Base Excess 0.6 FiO2 50% Sodium 138.3 Potassium 3.8 Chloride 107 Carbon Dioxide 26 Anion Gap 5 BUN 22 H Creatinine 3.72 H Est GFR ( Amer) 20 L Est GFR (Non-Af Amer) 17 L Glucose 117 H Lactic Acid Calcium 7.5 L Magnesium Total Bilirubin AST ALT Alkaline Phosphatase Total Protein Albumin Triglycerides 09/23/18 09/23/18 09/23/18 15:57 15:57 15:57 WBC RBC Hgb Hct MCV MCH MCHC RDW Plt Count Seg Neutrophils % Lymphocytes % Monocytes % Eosinophils % Basophils % Absolute Neutrophils Absolute Lymphocytes Absolute Monocytes Absolute Eosinophils Absolute Basophils Carbonic Acid HCO3/H2CO3 Ratio ABG pH ABG pCO2 ABG pO2 ABG HCO3 ABG O2 Saturation ABG Base Excess FiO2 Sodium 136.4 L Potassium 3.9 Chloride 106 Carbon Dioxide 23 Anion Gap 7 BUN 25 H Creatinine 4.23 H Est GFR ( Amer) 17 L Est GFR (Non-Af Amer) 14 L Glucose 107 Lactic Acid 1.3 Calcium 7.3 L Magnesium 1.7 Total Bilirubin 1.5 H AST 28 ALT 32 Alkaline Phosphatase 56 Total Protein 5.0 L Albumin 2.2 L Triglycerides 250 H 09/23/18 21:25 WBC RBC Hgb Hct MCV MCH MCHC RDW Plt Count Seg Neutrophils % Lymphocytes % Monocytes % Eosinophils % Basophils % Absolute Neutrophils Absolute Lymphocytes Absolute Monocytes Absolute Eosinophils Absolute Basophils Carbonic Acid 1.40 H HCO3/H2CO3 Ratio 16:1 ABG pH 7.31 L ABG pCO2 46.6 H ABG pO2 92.5 ABG HCO3 22.7 ABG O2 Saturation 96.3 ABG Base Excess -3.7 FiO2 80% Sodium Potassium Chloride Carbon Dioxide Anion Gap BUN Creatinine Est GFR ( Amer) Est GFR (Non-Af Amer) Glucose Lactic Acid Calcium Magnesium Total Bilirubin AST ALT Alkaline Phosphatase Total Protein Albumin Triglycerides 09/15/18 09/15/18 09/15/18 07:07 13:30 13:30 Creatine Kinase 261 H CK-MB (CK-2) 1.63 Troponin I 0.015 0.021 NT-Pro-B Natriuret Pep 239 09/15/18 09/15/18 09/17/18 20:35 20:35 09:48 Creatine Kinase 855 H 1250 H CK-MB (CK-2) 6.56 H Troponin I 0.022 NT-Pro-B Natriuret Pep 09/17/18 09/22/18 09:48 03:15 Creatine Kinase CK-MB (CK-2) 3.91 Troponin I < 0.012 0.041 NT-Pro-B Natriuret Pep Impressions: Renal Ultrasound 09/15/18 00:00 IMPRESSION: No evidence hydronephrosis. Abdomen/Pelvis CT 09/17/18 00:00 IMPRESSION: Small bowel obstruction Small Bowel X-Ray 09/18/18 00:00 IMPRESSION: 1. At 3 hours, much of the contrast remains in the stomach. If clinically feasible, consider positioning patient on the right side to facilitate emptying of the stomach and better opacification of the small bowel. If this can be done, consider additional follow-up radiographs in several hours. 2. There is a small amount of contrast in several distended small bowel segments, likely small bowel obstruction. However, there is not adequate opacification to determine the transition point. KUB X-Ray 09/20/18 00:00 IMPRESSION: Stomach decompressed by nasogastric tube. Persistent gaseous distention of small bowel out of proportion to colon from small bowel obstruction Chest X-Ray 09/23/18 06:00 IMPRESSION: No significant change. Assessment & Plan - Diagnosis (1) Acute kidney injury Is this a current diagnosis for this admission?: Yes Plan: Worsening kidney function, there is no urinary output, the Aldana catheter was changed, 700 cc of urine was collected (2) Acute diverticulitis Is this a current diagnosis for this admission?: Yes (3) Atrial fibrillation with RVR Is this a current diagnosis for this admission?: Yes (4) Morbid obesity due to excess calories Is this a current diagnosis for this admission?: Yes (5) Hypotension Qualifiers: Hypotension type: unspecified hypotension type Qualified Code(s): I95.9 - Hypotension, unspecified Is this a current diagnosis for this admission?: Yes (6) Small bowel obstruction Is this a current diagnosis for this admission?: Yes (7) Hypernatremia Is this a current diagnosis for this admission?: Yes (8) Respiratory failure Qualifiers: Chronicity: unspecified Respiratory failure complication: unspecified whether with hypoxia or hypercapnia Qualified Code(s): J96.90 - Respiratory failure, unspecified, unspecified whether with hypoxia or hypercapnia Is this a current diagnosis for this admission?: Yes (9) Sepsis following intra-abdominal surgery Is this a current diagnosis for this admission?: Yes Plan: Obtain CT scan abdomen pelvis, status post laparotomy with ileocecectomy,Patient already started on broad-spectrum antibiotic
[2018-09-23] MEDS ORDERED: POTASSI CL 20 MEQ/NS 1L 0 ML IV ONE (23:20)
--- NOTE | 2018-09-23 23:26 | RADIOLOGY REPORT (SQ) ---
EXAM DESCRIPTION: CT ABDOMEN PELVIS WITHOUT IV CONTRAST COMPLETED DATE/TME: 09/23/2018 00:00 CLINICAL HISTORY: 63 years, Male, abd pain COMPARISON: Prior study from 09/17/2018 TECHNIQUE: Noncontrast CT of the abdomen/pelvis was performed. Coronal and sagittal reformations were created. Images stored on PACS. All CT scanners at this facility use dose modulation, iterative reconstruction, and/or weight based dosing when appropriate to reduce radiation dose to as low as reasonably achievable (ALARA). [facility]: Dose Right [facility]: CareDose [facility]: Dose Right [facility]: Teradose 4D [facility]: MediaSilo LIMITATIONS: None. FINDINGS: Limited evaluation of the lower chest reveals bibasilar consolidative opacity. The liver, spleen, pancreas, and both adrenal glands appear normal. Hyperdensity layers dependently within the gallbladder lumen. Both kidneys are normal in their noncontrast appearance. There is no hydronephrosis or hydroureter. The urinary bladder is collapsed given the presence of a Aldana catheter. A small amount of iatrogenic gas is noted within the urinary bladder as well. A penile prosthesis pump is located within the low pelvis. Small bilateral fat-containing inguinal hernias are noted. The small and large bowel appear grossly normal in caliber without areas of focal wall thickening. There is no evidence of bowel obstruction. A percutaneous drainage catheter projects about the right hemiabdomen, new from the previous exam. There are postsurgical changes of midline laparotomy. Mild inflammatory stranding is noted about the right lower quadrant mesentery, presumably postsurgical. No obvious subdiaphragmatic free air is appreciated. There are no drainable fluid collections. A small amount of amorphous fluid is noted about the mesentery of the mid abdomen on image 60 of series 3. Mild calcifications are noted about the abdominal aorta and proximal iliac vessels. No suspicious lymphadenopathy is appreciated. The graft mild inflammatory stranding is noted about the subcutaneous soft tissues about both lower thighs. Bone windows show no destructive osseous lesions. IMPRESSION: Postsurgical changes of midline laparotomy. Additional mild inflammatory stranding about the right lower quadrant mesentery as well as amorphous fluid within the mid abdomen are also likely postsurgical in etiology. Otherwise, no acute abnormality within the abdomen or pelvis is identified. Bibasilar consolidation. Consider atelectasis or pneumonia to include aspiration. Hyperdensity within the gallbladder lumen either indicates vicarious excretion of previously administered contrast material or sludge/stones. TECHNICAL DOCUMENTATION: Quality ID # 436: Final reports with documentation of one or more dose reduction techniques (e.g., Automated exposure control, adjustment of the mA and/or kV according to patient size, use of iterative reconstruction technique) copyright 2011 [employer] All Rights Reserved
--- NOTE | 2018-09-24 00:08 | PDOC PROGRESS REPORT ---
Subjective Progress Note for:: 09/23/18 Subjective:: Asked to reevaluate patient who appears to be in pain with grimacing. This occurred after his Aldana had been removed. He was noted to have incontinence of urine after the removal. Reason For Visit: ACUTE KIDNEY INJURY,PAROXYSMAL ATRIAL FIBRILLATION Physical Exam Vital Signs: Temp Pulse Resp BP Pulse Ox 101.4 F H 99 19 122/76 92 09/23/18 20:00 09/23/18 18:00 09/23/18 18:00 09/23/18 18:00 09/23/18 20:40 Intake & Output 09/22/18 09/23/18 09/24/18 06:59 06:59 06:59 Intake Total 15651 5382 3866 Output Total 5750 1025 1106 Balance 6595 2987 2760 Weight 130.2 kg 132.1 kg General appearance: PRESENT: other - Intubated and sedated Respiratory exam: PRESENT: rhonchi Cardiovascular exam: PRESENT: tachycardia - Patient began to have tachycardia after dobutamine was initiated. GI/Abdominal exam: PRESENT: other - Mildly distended. Soft. Appears to be tender in the suprapubic region with palpable distended bladder. His drain ou tput is serosanguineous. Results Laboratory Results: 09/23/18 06:02 09/23/18 15:57 09/23/18 09/23/18 09/23/18 05:31 06:02 06:02 WBC 22.8 H RBC 4.58 Hgb 12.4 L Hct 38.1 MCV 83 MCH 27.1 MCHC 32.6 RDW 16.6 H Plt Count 79 L Seg Neutrophils % Not Reportable Lymphocytes % Not Reportable Monocytes % Not Reportable Eosinophils % Not Reportable Basophils % Not Reportable Absolute Neutrophils Not Reportable Absolute Lymphocytes Not Reportable Absolute Monocytes Not Reportable Absolute Eosinophils Not Reportable Absolute Basophils Not Reportable Carbonic Acid 1.33 HCO3/H2CO3 Ratio 19:1 ABG pH 7.38 ABG pCO2 44.3 ABG pO2 106.9 H ABG HCO3 25.8 H ABG O2 Saturation 97.8 ABG Base Excess 0.6 FiO2 50% Sodium 138.3 Potassium 3.8 Chloride 107 Carbon Dioxide 26 Anion Gap 5 BUN 22 H Creatinine 3.72 H Est GFR ( Amer) 20 L Est GFR (Non-Af Amer) 17 L Glucose 117 H Lactic Acid Calcium 7.5 L Magnesium Total Bilirubin AST ALT Alkaline Phosphatase Total Protein Albumin Triglycerides 09/23/18 09/23/18 09/23/18 15:57 15:57 15:57 WBC RBC Hgb Hct MCV MCH MCHC RDW Plt Count Seg Neutrophils % Lymphocytes % Monocytes % Eosinophils % Basophils % Absolute Neutrophils Absolute Lymphocytes Absolute Monocytes Absolute Eosinophils Absolute Basophils Carbonic Acid HCO3/H2CO3 Ratio ABG pH ABG pCO2 ABG pO2 ABG HCO3 ABG O2 Saturation ABG Base Excess FiO2 Sodium 136.4 L Potassium 3.9 Chloride 106 Carbon Dioxide 23 Anion Gap 7 BUN 25 H Creatinine 4.23 H Est GFR ( Amer) 17 L Est GFR (Non-Af Amer) 14 L Glucose 107 Lactic Acid 1.3 Calcium 7.3 L Magnesium 1.7 Total Bilirubin 1.5 H AST 28 ALT 32 Alkaline Phosphatase 56 Total Protein 5.0 L Albumin 2.2 L Triglycerides 250 H 09/23/18 21:25 WBC RBC Hgb Hct MCV MCH MCHC RDW Plt Count Seg Neutrophils % Lymphocytes % Monocytes % Eosinophils % Basophils % Absolute Neutrophils Absolute Lymphocytes Absolute Monocytes Absolute Eosinophils Absolute Basophils Carbonic Acid 1.40 H HCO3/H2CO3 Ratio 16:1 ABG pH 7.31 L ABG pCO2 46.6 H ABG pO2 92.5 ABG HCO3 22.7 ABG O2 Saturation 96.3 ABG Base Excess -3.7 FiO2 80% Sodium Potassium Chloride Carbon Dioxide Anion Gap BUN Creatinine Est GFR ( Amer) Est GFR (Non-Af Amer) Glucose Lactic Acid Calcium Magnesium Total Bilirubin AST ALT Alkaline Phosphatase Total Protein Albumin Triglycerides 09/15/18 09/15/18 09/15/18 07:07 13:30 13:30 Creatine Kinase 261 H CK-MB (CK-2) 1.63 Troponin I 0.015 0.021 NT-Pro-B Natriuret Pep 239 09/15/18 09/15/18 09/17/18 20:35 20:35 09:48 Creatine Kinase 855 H 1250 H CK-MB (CK-2) 6.56 H Troponin I 0.022 NT-Pro-B Natriuret Pep 09/17/18 09/22/18 09:48 03:15 Creatine Kinase CK-MB (CK-2) 3.91 Troponin I < 0.012 0.041 NT-Pro-B Natriuret Pep Impressions: Renal Ultrasound 09/15/18 00:00 IMPRESSION: No evidence hydronephrosis. Small Bowel X-Ray 09/18/18 00:00 IMPRESSION: 1. At 3 hours, much of the contrast remains in the stomach. If clinically feasible, consider positioning patient on the right side to facilitate emptying of the stomach and better opacification of the small bowel. If this can be done, consider additional follow-up radiographs in several hours. 2. There is a small amount of contrast in several distended small bowel segments, likely small bowel obstruction. However, there is not adequate opacification to determine the transition point. KUB X-Ray 09/20/18 00:00 IMPRESSION: Stomach decompressed by nasogastric tube. Persistent gaseous distention of small bowel out of proportion to colon from small bowel obstruction Abdomen/Pelvis CT 09/23/18 00:00 IMPRESSION: Postsurgical changes of midline laparotomy. Additional mild inflammatory stranding about the right lower quadrant mesentery as well as amorphous fluid within the mid abdomen are also likely postsurgical in etiology. Otherwise, no acute abnormality within the abdomen or pelvis is identified. Bibasilar consolidation. Consider atelectasis or pneumonia to include aspiration. Hyperdensity within the gallbladder lumen either indicates vicarious excretion of previously administered contrast material or sludge/stones. TECHNICAL DOCUMENTATION: Quality ID # 436: Final reports with documentation of one or more dose reduction techniques (e.g., Automated exposure control, adjustment of the mA and/or kV according to patient size, use of iterative reconstruction technique) copyright 2011 [employer]- All Rights Reserved Chest X-Ray 09/23/18 06:00 IMPRESSION: No significant change. Assessment & Plan - Diagnosis (1) Small bowel obstruction Is this a current diagnosis for this admission?: Yes Plan: Status post ileocecectomy. (2) Urinary retention Is this a current diagnosis for this admission?: Yes Plan: Appears to be the reason for his pain. With Dr. Jon a coud catheter was inserted with a drainage of over 600 cc of yellow urine. Afterwards patient no longer grimacing. (3) Sepsis following intra-abdominal surgery Is this a current diagnosis for this admission?: Yes Plan: CT scan demonstrates postoperative changes. The drain is going right around the anastomosis and is draining serosanguineous material. Although I cannot entirely exclude intra-abdominal sepsis I do not think he has an anastomotic leak. Continue supportive care. Continue IV antibiotics. Will place a central line to help manage his fluids better. His urine output has increased since the dobutamine has started. His tachycardia only came on after the dobutamine had started.
--- NOTE | 2018-09-24 00:11 | Operative Report ---
Operative Report DATE OF SURGERY: 09/24/18 PREOPERATIVE DIAGNOSIS: Sepsis POSTOPERATIVE DIAGNOSIS: Sepsis. OPERATION: Right internal jugular triple-lumen central venous catheter placed under ultrasound guidance. SURGEON: ELIO MCKEON ANESTHESIA: Local TISSUE REMOVED OR ALTERED: none COMPLICATIONS: None ESTIMATED BLOOD LOSS: minimal INTRAOPERATIVE FINDINGS: None PROCEDURE: Informed consent was obtained. Procedure was done at the patient's bedside. Patient's right neck was prepped and draped in usual sterile fashion. Using the ultrasound the right internal jugular vein was identified. Local anesthetic was administered. The right internal jugular vein was cannulated without diffi culty. Triple-lumen central venous catheter was placed via the Seldinger technique without difficulty. It withdrew dark nonpulsatile blood and flushed easily. It was sutured in place. Dressings were applied. Stat portable chest x-ray was ordered. Patient tolerated procedure well with no apparent complications.
[2018-09-24] MEDS: HYDROMORPHONE HCL INJ/PF 2 MG/ML AMPULE IV PRN ×8 (00:21→22:28)
--- NOTE | 2018-09-24 00:34 | RADIOLOGY REPORT (SQ) ---
EXAM DESCRIPTION: XR CHEST 1 VIEW COMPLETED DATE/TME: 09/23/2018 23:50 CLINICAL HISTORY: 63 years Male, placed a central line COMPARISON: One day prior. NUMBER OF VIEWS/TECHNIQUE: 1/AP FINDINGS: Mild central edema.Adequate appearing endotracheal tube. Adequate appearing enteric tube partially obscured. Adequate appearing right jugular central line. Normal cardiac silhouette size. Left cardiac stimulator with leads. No pneumothorax. Stable bony thorax. IMPRESSION: Interval line/tube modification.
[2018-09-24] MEDS: PROPOFOL 1,000 MG/100 ML INFUS..BTL IV PRN ×13 (00:40→23:15)
[2018-09-24 00:42] LABS: HEMATOCRIT 35.9 % (37.9-51.0); HEMOGLOBIN 11.7 g/dL (13.5-17.0); MEAN CORPUSCULAR HEMOGLOBIN 27.1 pg (27.0-33.4); MEAN CORPUSCULAR HGB CONC 32.6 g/dL (32.0-36.0); MEAN CORPUSCULAR VOLUME 83 fl (80-97)
[2018-09-24 00:57] LABS: PLATELET COUNT 82 10^3/uL (150-450)
[2018-09-24 00:59] LABS: ABSOLUTE LYMPHOCYTES# (MANUAL) 4.5 10^3/uL (0.5-4.7); ABSOLUTE MONOCYTES # (MANUAL) 1.1 10^3/uL (0.1-1.4); ABSOLUTE NEUTROPHILS# (MANUAL) 22.4 10^3/uL (1.7-8.2); BASOPHILS % (MANUAL) 0 % (0-2); EOSINOPHILS % (MANUAL) 0 % (0-6); LYMPHOCYTES % (MANUAL) 16 % (13-45); MONOCYTES % (MANUAL) 4 % (3-13); SEGMENTED NEUTROPHILS % (MAN) 80 % (42-78); TOTAL CELLS COUNTED 100
[2018-09-24 01:02] LABS: ANISOCYTOSIS 2+; BURR CELLS 1+; PLATELET COMMENT DECREASED; POIKILOCYTOSIS 2+; POLYCHROMASIA 1+; TEAR DROP CELLS 1+
[2018-09-24 01:15] LABS: ANION GAP 9 (5-19); BLOOD UREA NITROGEN 26 mg/dL (7-20); CALCIUM 7.1 mg/dL (8.4-10.2); CARBON DIOXIDE 23 mmol/L (22-30); CHLORIDE 107 mmol/L (98-107); GLUCOSE 127 mg/dL (75-110); SODIUM 138.5 mmol/L (137-145)
[2018-09-24] MEDS: PANTOPRAZOLE SODIUM 40 MG VIAL IV SCH ×2 (02:43→09:44)
[2018-09-24] MEDS: NORMAL SALINE 1000 ML 1,000 ML IV PRN (04:07)
[2018-09-24 04:59] LABS: ARTERIAL BLOOD BASE EXCESS -3.8 mmol/L; ARTERIAL BLOOD FIO2 65%; ARTERIAL BLOOD HCO3 23.5 mmol/L (20-24); ARTERIAL BLOOD O2 SATURATION 95.4 % (94-98); ARTERIAL BLOOD PH 7.27 (7.35-7.45); ARTERIAL BLOOD PO2 88.6 mmHg (80-100); ARTERIAL BLOOD TOTAL CO2 25.1 mmol/L (23-27)
[2018-09-24 05:04] LABS: HEMATOCRIT 33.7 % (37.9-51.0); MEAN CORPUSCULAR HGB CONC 32.6 g/dL (32.0-36.0); MEAN CORPUSCULAR VOLUME 83 fl (80-97); RED BLOOD COUNT 4.07 10^6/uL (4.35-5.55); RED CELL DISTRIBUTION WIDTH 16.9 % (11.5-14.0); WHITE BLOOD COUNT 26.2 10^3/uL (4.0-10.5)
[2018-09-24 05:22] LABS: ALANINE AMINOTRANSFERASE 38 U/L (21-72); ALBUMIN 2.2 g/dL (3.5-5.0); ALKALINE PHOSPHATASE 69 U/L (38-126); ANION GAP 8 (5-19); ASPARTATE AMINO TRANSFERASE 30 U/L (17-59); BILIRUBIN,DIRECT 1.2 mg/dL (0.0-0.4); BILIRUBIN,TOTAL 1.2 mg/dL (0.2-1.3); BLOOD UREA NITROGEN 25 mg/dL (7-20); CARBON DIOXIDE 24 mmol/L (22-30); CHLORIDE 108 mmol/L (98-107); GLUCOSE 133 mg/dL (75-110)
[2018-09-24] MEDS: NORMAL SALINE 1000 ML 1,000 ML with POTASSIUM CHLORIDE 20 MEQ IV PRN ×2 (05:24)
[2018-09-24] MEDS: IMIPENEM/CILASTATIN SODIUM 250 MG in NORMAL SALINE 100 ML IV SCH ×2 (05:25→17:05)
[2018-09-24 05:38] LABS: PLATELET COUNT 78 10^3/uL (150-450)
[2018-09-24 05:42] LABS: ABSOLUTE LYMPHOCYTES# (MANUAL) 1.3 10^3/uL (0.5-4.7); ABSOLUTE NEUTROPHILS# (MANUAL) 23.8 10^3/uL (1.7-8.2); BASOPHILS % (MANUAL) 0 % (0-2); EOSINOPHILS % (MANUAL) 0 % (0-6); LYMPHOCYTES % (MANUAL) 5 % (13-45); MONOCYTES % (MANUAL) 4 % (3-13); NUCLEATED RED BLOOD CELLS 1 /100 WBC (0); SEGMENTED NEUTROPHILS % (MAN) 91 % (42-78); TOTAL CELLS COUNTED 100
[2018-09-24 05:43] LABS: ANISOCYTOSIS 1+; PLATELET COMMENT ADEQUATE; POLYCHROMASIA 1+
[2018-09-24] MEDS ORDERED: CALCIUM GLUCONATE 1000 MG/10 ML INJ IV ONE (06:00)
[2018-09-24] MEDS: DOBUTAMINE HCL/D5W 500 MG/250 ML RTUINJ IV PRN (06:05)
[2018-09-24] MEDS ORDERED: POTASSI CL 20 MEQ/NS 1L 1000 ML IV PRN ×2 (08:44→17:30)
--- NOTE | 2018-09-24 09:15 | PDOC PROGRESS REPORT ---
Subjective Progress Note for:: 09/24/18 Subjective:: pt intubated, on propofol Reason For Visit: ACUTE KIDNEY INJURY,PAROXYSMAL ATRIAL FIBRILLATION s/p exploratory laparotomy with ileocecectomy Physical Exam Vital Signs: Temp Pulse Resp BP Pulse Ox 98.8 F 110 H 19 123/61 98 09/24/18 08:00 09/24/18 08:00 09/24/18 08:00 09/24/18 08:00 09/24/18 08:49 Intake & Output 09/23/18 09/24/18 09/25/18 06:59 06:59 06:59 Intake Total 5382 7607 96 Output Total 2395 4501 220 Balance 2987 3106 -124 Weight 132.1 kg 134.9 kg General appearance: PRESENT: no acute distress Head exam: PRESENT: normocephalic Eye exam: PRESENT: other - intubated on propofol Mouth exam: PRESENT: moist Respiratory exam: PRESENT: clear to auscultation martita Cardiovascular exam: PRESENT: tachycardia Pulses: PRESENT: normal femoral pulses, +1 pedal pulses bilateral, +2 pedal pulses bilateral Vascular exam: PRESENT: pallor GI/Abdominal exam: PRESENT: soft - wound clean, no bs Rectal exam: PRESENT: deferred Gentrourinary exam: PRESENT: other - penile implant pump palp in left scrotal sac Skin exam: PRESENT: dry Results Laboratory Results: 09/24/18 04:47 09/24/18 04:47 09/23/18 09/23/18 09/23/18 15:57 15:57 15:57 WBC RBC Hgb Hct MCV MCH MCHC RDW Plt Count Seg Neutrophils % Lymphocytes % Monocytes % Eosinophils % Basophils % Absolute Neutrophils Absolute Lymphocytes Absolute Monocytes Absolute Eosinophils Absolute Basophils Carbonic Acid HCO3/H2CO3 Ratio ABG pH ABG pCO2 ABG pO2 ABG HCO3 ABG O2 Saturation ABG Base Excess FiO2 Sodium 136.4 L Potassium 3.9 Chloride 106 Carbon Dioxide 23 Anion Gap 7 BUN 25 H Creatinine 4.23 H Est GFR ( Amer) 17 L Est GFR (Non-Af Amer) 14 L Glucose 107 Lactic Acid 1.3 Calcium 7.3 L Magnesium 1.7 Total Bilirubin 1.5 H AST 28 ALT 32 Alkaline Phosphatase 56 Total Protein 5.0 L Albumin 2.2 L Triglycerides 250 H 04/23/19 04/24/19 04/24/19 21:25 00:25 00:25 WBC 28.0 H RBC 4.30 L Hgb 11.7 L Hct 35.9 L MCV 83 MCH 27.1 MCHC 32.6 RDW 17.0 H Plt Count 82 L Seg Neutrophils % Not Reportable Lymphocytes % Not Reportable Monocytes % Not Reportable Eosinophils % Not Reportable Basophils % Not Reportable Absolute Neutrophils Not Reportable Absolute Lymphocytes Not Reportable Absolute Monocytes Not Reportable Absolute Eosinophils Not Reportable Absolute Basophils Not Reportable Carbonic Acid 1.40 H HCO3/H2CO3 Ratio 16:1 ABG pH 7.31 L ABG pCO2 46.6 H ABG pO2 92.5 ABG HCO3 22.7 ABG O2 Saturation 96.3 ABG Base Excess -3.7 FiO2 80% Sodium 138.5 Potassium 4.0 Chloride 107 Carbon Dioxide 23 Anion Gap 9 BUN 26 H Creatinine 4.13 H Est GFR ( Amer) 18 L Est GFR (Non-Af Amer) 15 L Glucose 127 H Lactic Acid Calcium 7.1 L Magnesium 1.6 Total Bilirubin AST ALT Alkaline Phosphatase Total Protein Albumin Triglycerides 09/24/18 09/24/18 09/24/18 04:47 04:47 04:47 WBC 26.2 H RBC 4.07 L Hgb 11.0 L Hct 33.7 L MCV 83 MCH 27.0 MCHC 32.6 RDW 16.9 H Plt Count 78 L Seg Neutrophils % Not Reportable Lymphocytes % Not Reportable Monocytes % Not Reportable Eosinophils % Not Reportable Basophils % Not Reportable Absolute Neutrophils Not Reportable Absolute Lymphocytes Not Reportable Absolute Monocytes Not Reportable Absolute Eosinophils Not Reportable Absolute Basophils Not Reportable Carbonic Acid 1.60 H HCO3/H2CO3 Ratio 14:1 ABG pH 7.27 L ABG pCO2 53.0 H ABG pO2 88.6 ABG HCO3 23.5 ABG O2 Saturation 95.4 ABG Base Excess -3.8 FiO2 65% Sodium 140.0 Potassium 4.0 Chloride 108 H Carbon Dioxide 24 Anion Gap 8 BUN 25 H Creatinine 4.00 H Est GFR ( Amer) 18 L Est GFR (Non-Af Amer) 15 L Glucose 133 H Lactic Acid Calcium 7.0 L* Magnesium Total Bilirubin 1.2 AST 30 ALT 38 Alkaline Phosphatase 69 Total Protein 5.0 L Albumin 2.2 L Triglycerides 09/15/18 09/15/18 09/15/18 07:07 13:30 13:30 Creatine Kinase 261 H CK-MB (CK-2) 1.63 Troponin I 0.015 0.021 NT-Pro-B Natriuret Pep 239 09/15/18 09/15/18 09/17/18 20:35 20:35 09:48 Creatine Kinase 855 H 1250 H CK-MB (CK-2) 6.56 H Troponin I 0.022 NT-Pro-B Natriuret Pep 09/17/18 09/22/18 09:48 03:15 Creatine Kinase CK-MB (CK-2) 3.91 Troponin I < 0.012 0.041 NT-Pro-B Natriuret Pep Impressions: Renal Ultrasound 09/15/18 00:00 IMPRESSION: No evidence hydronephrosis. Small Bowel X-Ray 09/18/18 00:00 IMPRESSION: 1. At 3 hours, much of the contrast remains in the stomach. If clinically feasible, consider positioning patient on the right side to facilitate emptying of the stomach and better opacification of the small bowel. If this can be done, consider additional follow-up radiographs in several hours. 2. There is a small amount of contrast in several distended small bowel segments, likely small bowel obstruction. However, there is not adequate opacification to determine the transition point. KUB X-Ray 09/20/18 00:00 IMPRESSION: Stomach decompressed by nasogastric tube. Persistent gaseous distention of small bowel out of proportion to colon from small bowel obstruction Abdomen/Pelvis CT 09/23/18 00:00 IMPRESSION: Postsurgical changes of midline laparotomy. Additional mild inflammatory stranding about the right lower quadrant mesentery as well as amorphous fluid within the mid abdomen are also likely postsurgical in etiology. Otherwise, no acute abnormality within the abdomen or pelvis is identified. Bibasilar consolidation. Consider atelectasis or pneumonia to include aspiration. Hyperdensity within the gallbladder lumen either indicates vicarious excretion of previously administered contrast material or sludge/stones. TECHNICAL DOCUMENTATION: Quality ID # 436: Final reports with documentation of one or more dose reduction techniques (e.g., Automated exposure control, adjustment of the mA and/or kV according to patient size, use of iterative reconstruction technique) copyright 2011 [employer]- All Rights Reserved Chest X-Ray 09/23/18 23:50 IMPRESSION: Interval line/tube modification. Status: Image reviewed by me - ct reviwed, no obvious fluid collection no free. Assessment & Plan - Plan Summary Plan Summary: pt had pineda replaced last pm with greater than 2.5 liter op of urine this am pt stable on vent creat stable k+ wnl cxr reviewed, shows some interstitial edema plan per nephrology, pulm pt post op ileocecectomy, , sepsis no obvious surgical source of sepsis will cont to follow.
[2018-09-24] MEDS: ENOXAPARIN SODIUM INJ 40 MG/0.4 ML DISP.SYRIN SUBCUT SCH (09:44)
--- NOTE | 2018-09-24 10:46 | RADIOLOGY REPORT (SQ) ---
EXAM DESCRIPTION: CHEST SINGLE VIEW COMPLETED DATE/TIME: 09/24/2018 10:19 am REASON FOR STUDY: respiratory distress COMPARISON: 09/24/2018 EXAM PARAMETERS: NUMBER OF VIEWS: One view. TECHNIQUE: Single frontal radiographic view of the chest acquired. RADIATION DOSE: NA LIMITATIONS: None. FINDINGS: LUNGS AND PLEURA: There is increased opacification in the retrocardiac area on the left. MEDIASTINUM AND HILAR STRUCTURES: No masses. Contour normal. HEART AND VASCULAR STRUCTURES: Cardiomegaly. No kassandra pulmonary edema. BONES: No acute findings. HARDWARE: Endotracheal tube has its tip at the level of the clavicles. Right internal jugular cathet er appears to terminate at about the level of the right atrium. Pacemaker. OTHER: No other significant finding. IMPRESSION: Life lines as described. Airspace disease in the left lower lobe. Atelectasis versus p neumonia. TECHNICAL DOCUMENTATION: JOB ID: [id number] [employer]- All Rights Reserved Reading location - IP/workstation name: [email or web address]
--- NOTE | 2018-09-24 12:13 | PDOC PROGRESS REPORT ---
Subjective Progress Note for:: 09/24/18 Reason For Visit: Patient seen in the ICU this morning. Patient remains intubated and sedated. Discussions were done with the treating nurse Chantal. Patient continues to be on dobutamine started by Dr. Jon yesterday. He had new Foleys catheter introduced and has had really good urine output. Labs and medications were reviewed and shows stabilizing renal numbers. Her electrolytes are stable.However calcium is low and has had a bolus replacement. Physical Exam Vital Signs: Temp Pulse Resp BP Pulse Ox 98.8 F 114 H 21 H 119/58 L 94 09/24/18 08:00 09/24/18 10:00 09/24/18 11:32 09/24/18 11:32 09/24/18 11:32 Intake & Output 09/23/18 09/24/18 09/25/18 06:59 06:59 06:59 Intake Total 5382 7607 298 Output Total 2395 4501 870 Balance 2987 3106 -572 Weight 132.1 kg 134.9 kg Exam: Remains intubated and sedated. Respiratory exam: PRESENT: clear to auscultation martita, decreased breath sounds - In the right lung along with a few scattered rhonchi. Indicative of possible aspiration., rhonchi - In the right lung Cardiovascular exam: PRESENT: +S1, +S2 GI/Abdominal exam: PRESENT: distended, firm - Soft-firm. ABSENT: normal bowel sounds Extremities exam: PRESENT: pedal edema Neurological exam: PRESENT: altered Skin exam: ABSENT: cyanosis, erythema, mottled, rash Results Laboratory Results: 09/24/18 04:47 09/24/18 04:47 09/23/18 09/23/18 09/23/18 15:57 15:57 15:57 WBC RBC Hgb Hct MCV MCH MCHC RDW Plt Count Seg Neutrophils % Lymphocytes % Monocytes % Eosinophils % Basophils % Absolute Neutrophils Absolute Lymphocytes Absolute Monocytes Absolute Eosinophils Absolute Basophils Carbonic Acid HCO3/H2CO3 Ratio ABG pH ABG pCO2 ABG pO2 ABG HCO3 ABG O2 Saturation ABG Base Excess FiO2 Sodium 136.4 L Potassium 3.9 Chloride 106 Carbon Dioxide 23 Anion Gap 7 BUN 25 H Creatinine 4.23 H Est GFR ( Amer) 17 L Est GFR (Non-Af Amer) 14 L Glucose 107 Lactic Acid 1.3 Calcium 7.3 L Magnesium 1.7 Total Bilirubin 1.5 H AST 28 ALT 32 Alkaline Phosphatase 56 Total Protein 5.0 L Albumin 2.2 L Triglycerides 250 H 09/23/18 09/24/18 09/24/18 21:25 00:25 00:25 WBC 28.0 H RBC 4.30 L Hgb 11.7 L Hct 35.9 L MCV 83 MCH 27.1 MCHC 32.6 RDW 17.0 H Plt Count 82 L Seg Neutrophils % Not Reportable Lymphocytes % Not Reportable Monocytes % Not Reportable Eosinophils % Not Reportable Basophils % Not Reportable Absolute Neutrophils Not Reportable Absolute Lymphocytes Not Reportable Absolute Monocytes Not Reportable Absolute Eosinophils Not Reportable Absolute Basophils Not Reportable Carbonic Acid 1.40 H HCO3/H2CO3 Ratio 16:1 ABG pH 7.31 L ABG pCO2 46.6 H ABG pO2 92.5 ABG HCO3 22.7 ABG O2 Saturation 96.3 ABG Base Excess -3.7 FiO2 80% Sodium 138.5 Potassium 4.0 Chloride 107 Carbon Dioxide 23 Anion Gap 9 BUN 26 H Creatinine 4.13 H Est GFR ( Amer) 18 L Est GFR (Non-Af Amer) 15 L Glucose 127 H Lactic Acid Calcium 7.1 L Magnesium 1.6 Total Bilirubin AST ALT Alkaline Phosphatase Total Protein Albumin Triglycerides 09/24/18 09/24/18 09/24/18 04:47 04:47 04:47 WBC 26.2 H RBC 4.07 L Hgb 11.0 L Hct 33.7 L MCV 83 MCH 27.0 MCHC 32.6 RDW 16.9 H Plt Count 78 L Seg Neutrophils % Not Reportable Lymphocytes % Not Reportable Monocytes % Not Reportable Eosinophils % Not Reportable Basophils % Not Reportable Absolute Neutrophils Not Reportable Absolute Lymphocytes Not Reportable Absolute Monocytes Not Reportable Absolute Eosinophils Not Reportable Absolute Basophils Not Reportable Carbonic Acid 1.60 H HCO3/H2CO3 Ratio 14:1 ABG pH 7.27 L ABG pCO2 53.0 H ABG pO2 88.6 ABG HCO3 23.5 ABG O2 Saturation 95.4 ABG Base Excess -3.8 FiO2 65% Sodium 140.0 Potassium 4.0 Chloride 108 H Carbon Dioxide 24 Anion Gap 8 BUN 25 H Creatinine 4.00 H Est GFR ( Amer) 18 L Est GFR (Non-Af Amer) 15 L Glucose 133 H Lactic Acid Calcium 7.0 L* Magnesium Total Bilirubin 1.2 AST 30 ALT 38 Alkaline Phosphatase 69 Total Protein 5.0 L Albumin 2.2 L Triglycerides 09/15/18 09/15/18 09/15/18 07:07 13:30 13:30 Creatine Kinase 261 H CK-MB (CK-2) 1.63 Troponin I 0.015 0.021 NT-Pro-B Natriuret Pep 239 09/15/18 09/15/18 09/17/18 20:35 20:35 09:48 Creatine Kinase 855 H 1250 H CK-MB (CK-2) 6.56 H Troponin I 0.022 NT-Pro-B Natriuret Pep 09/17/18 09/22/18 09:48 03:15 Creatine Kinase CK-MB (CK-2) 3.91 Troponin I < 0.012 0.041 NT-Pro-B Natriuret Pep Impressions: Renal Ultrasound 09/15/18 00:00 IMPRESSION: No evidence hydronephrosis. Small Bowel X-Ray 09/18/18 00:00 IMPRESSION: 1. At 3 hours, much of the contrast remains in the stomach. If clinically feasible, consider positioning patient on the right side to facilitate emptying of the stomach and better opacification of the small bowel. If this can be done, consider additional follow-up radiographs in several hours. 2. There is a small amount of contrast in several distended small bowel segments, likely small bowel obstruction. However, there is not adequate opacification to determine the transition point. KUB X-Ray 09/20/18 00:00 IMPRESSION: Stomach decompressed by nasogastric tube. Persistent gaseous distention of small bowel out of proportion to colon from small bowel obstruction Abdomen/Pelvis CT 09/23/18 00:00 IMPRESSION: Postsurgical changes of midline laparotomy. Additional mild inflammatory stranding about the right lower quadrant mesentery as well as amorphous fluid within the mid abdomen are also likely postsurgical in etiology. Otherwise, no acute abnormality within the abdomen or pelvis is identified. Bibasilar consolidation. Consider atelectasis or pneumonia to include aspiration. Hyperdensity within the gallbladder lumen either indicates vicarious excretion of previously administered contrast material or sludge/stones. TECHNICAL DOCUMENTATION: Quality ID # [id number]: Final reports with documentation of one or more dose reduction techniques (e.g., Automated exposure control, adjustment of the mA and/or kV according to patient size, use of iterative reconstruction technique) copyright 2011 [employer]- All Rights Reserved Chest X-Ray 09/24/18 00:00 IMPRESSION: Life lines as described. Airspace disease in the left lower lobe. Atelectasis versus pneumonia. Assessment & Plan - Diagnosis (1) Acute kidney injury Is this a current diagnosis for this admission?: Yes Plan: Currently nonoliguric and has had a good diuretic response to current management. Looks like renal numbers are stabilizing. We will continue on present lines of management. Discussed with Dr. Rodrigues of bringing down the dobutamine given that his heart rate has gone up to the 120-130 range in the back drop of atrial fibrillation kept in check with amiodarone/Cardizem. (2) Atrial fibrillation with RVR Is this a current diagnosis for this admission?: Yes Plan: On amiodarone and cardizem. (3) Hypotension Qualifiers: Hypotension type: unspecified hypotension type Qualified Code(s): I95.9 - Hypotension, unspecified Is this a current diagnosis for this admission?: Yes Plan: Patient is hemodynamically more stable today. His white count is also beginning to drop which is encouraging. (4) Morbid obesity due to excess calories Is this a current diagnosis for this admission?: Yes Plan: Status quo (5) Respiratory failure Qualifiers: Chronicity: acute Respiratory failure complication: hypoxia Qualified Code(s): J96.01 - Acute respiratory failure with hypoxia Is this a current diagnosis for this admission?: Yes Plan: Currently postop day 4. Intubated and sedated. (6) Small bowel obstruction Is this a current diagnosis for this admission?: Yes Plan: Secondary to apparent terminal ileal stricture.Underwent ileocecectomy and ileocolic anastomosis. Currently postop day 4. (7) Hypokalemia Plan: Currently stable. (8) Hypocalcemia Plan: Status post IV bolus replacements. Monitor.
[2018-09-24] MEDS: DEXTROSE 5%-WATER 500 ML with AMIODARONE HCL 900 MG IV PRN ×2 (14:43)
[2018-09-24] MEDS: DILTIAZEM HCL/D5W 125 MG/125 ML RTUINJ IV PRN (14:43)
[2018-09-24] MEDS: POTASSI CL 20 MEQ/NS 1L 1000 ML IV PRN ×2 (17:15→22:29)
[2018-09-24 17:17] LABS: ARTERIAL BLOOD BASE EXCESS -4.1 mmol/L; ARTERIAL BLOOD H2CO3 1.41 mmol/L (1.05-1.35); ARTERIAL BLOOD HCO3 22.5 mmol/L (20-24); ARTERIAL BLOOD PO2 61.6 mmHg (80-100); ARTERIAL BLOOD TOTAL CO2 23.9 mmol/L (23-27)
[2018-09-24 17:24] LABS: ARTERIAL BLOOD FIO2 65%
--- NOTE | 2018-09-24 18:45 | PDOC PROGRESS REPORT ---
Subjective Progress Note for:: 09/24/18 Subjective:: Patient is still intubated Reason For Visit: ACUTE KIDNEY INJURY,PAROXYSMAL ATRIAL FIBRILLATION Physical Exam Vital Signs: Temp Pulse Resp BP Pulse Ox 99.6 F 94 17 112/52 L 92 09/24/18 16:00 09/24/18 18:00 09/24/18 18:32 09/24/18 18:32 09/24/18 18:32 Intake & Output 09/23/18 09/24/18 09/25/18 06:59 06:59 06:59 Intake Total 5382 7607 1220 Output Total 4926 3015 51608 Balance 2982 2347 -45624 Weight 132.1 kg 134.9 kg Respiratory exam: PRESENT: clear to auscultation martita Cardiovascular exam: PRESENT: +S1, +S2 GI/Abdominal exam: PRESENT: soft Results Laboratory Results: 09/24/18 04:47 09/24/18 04:47 09/23/18 09/24/18 09/24/18 21:25 00:25 00:25 WBC 28.0 H RBC 4.30 L Hgb 11.7 L Hct 35.9 L MCV 83 MCH 27.1 MCHC 32.6 RDW 17.0 H Plt Count 82 L Seg Neutrophils % Not Reportable Lymphocytes % Not Reportable Monocytes % Not Reportable Eosinophils % Not Reportable Basophils % Not Reportable Absolute Neutrophils Not Reportable Absolute Lymphocytes Not Reportable Absolute Monocytes Not Reportable Absolute Eosinophils Not Reportable Absolute Basophils Not Reportable Carbonic Acid 1.40 H HCO3/H2CO3 Ratio 16:1 ABG pH 7.31 L ABG pCO2 46.6 H ABG pO2 92.5 ABG HCO3 22.7 ABG O2 Saturation 96.3 ABG Base Excess -3.7 FiO2 80% Sodium 138.5 Potassium 4.0 Chloride 107 Carbon Dioxide 23 Anion Gap 9 BUN 26 H Creatinine 4.13 H Est GFR ( Amer) 18 L Est GFR (Non-Af Amer) 15 L Glucose 127 H Calcium 7.1 L Magnesium 1.6 Total Bilirubin AST ALT Alkaline Phosphatase Total Protein Albumin 09/24/18 09/24/18 09/24/18 04:47 04:47 04:47 WBC 26.2 H RBC 4.07 L Hgb 11.0 L Hct 33.7 L MCV 83 MCH 27.0 MCHC 32.6 RDW 16.9 H Plt Count 78 L Seg Neutrophils % Not Reportable Lymphocytes % Not Reportable Monocytes % Not Reportable Eosinophils % Not Reportable Basophils % Not Reportable Absolute Neutrophils Not Reportable Absolute Lymphocytes Not Reportable Absolute Monocytes Not Reportable Absolute Eosinophils Not Reportable Absolute Basophils Not Reportable Carbonic Acid 1.60 H HCO3/H2CO3 Ratio 14:1 ABG pH 7.27 L ABG pCO2 53.0 H ABG pO2 88.6 ABG HCO3 23.5 ABG O2 Saturation 95.4 ABG Base Excess -3.8 FiO2 65% Sodium 140.0 Potassium 4.0 Chloride 108 H Carbon Dioxide 24 Anion Gap 8 BUN 25 H Creatinine 4.00 H Est GFR ( Amer) 18 L Est GFR (Non-Af Amer) 15 L Glucose 133 H Calcium 7.0 L* Magnesium Total Bilirubin 1.2 AST 30 ALT 38 Alkaline Phosphatase 69 Total Protein 5.0 L Albumin 2.2 L 09/24/18 17:00 WBC RBC Hgb Hct MCV MCH MCHC RDW Plt Count Seg Neutrophils % Lymphocytes % Monocytes % Eosinophils % Basophils % Absolute Neutrophils Absolute Lymphocytes Absolute Monocytes Absolute Eosinophils Absolute Basophils Carbonic Acid 1.41 H HCO3/H2CO3 Ratio 15:1 ABG pH 7.30 L ABG pCO2 47.0 H ABG pO2 61.6 L ABG HCO3 22.5 ABG O2 Saturation 89.0 L ABG Base Excess -4.1 FiO2 65% Sodium Potassium Chloride Carbon Dioxide Anion Gap BUN Creatinine Est GFR ( Amer) Est GFR (Non-Af Amer) Glucose Calcium Magnesium Total Bilirubin AST ALT Alkaline Phosphatase Total Protein Albumin 09/15/18 09/15/18 09/15/18 07:07 13:30 13:30 Creatine Kinase 261 H CK-MB (CK-2) 1.63 Troponin I 0.015 0.021 NT-Pro-B Natriuret Pep 239 09/15/18 09/15/18 09/17/18 20:35 20:35 09:48 Creatine Kinase 855 H 1250 H CK-MB (CK-2) 6.56 H Troponin I 0.022 NT-Pro-B Natriuret Pep 09/17/18 09/22/18 09:48 03:15 Creatine Kinase CK-MB (CK-2) 3.91 Troponin I < 0.012 0.041 NT-Pro-B Natriuret Pep Impressions: Renal Ultrasound 09/15/18 00:00 IMPRESSION: No evidence hydronephrosis. Small Bowel X-Ray 09/18/18 00:00 IMPRESSION: 1. At 3 hours, much of the contrast remains in the stomach. If clinically feasible, consider positioning patient on the right side to facilitate emptying of the stomach and better opacification of the small bowel. If this can be done, consider additional follow-up radiographs in several hours. 2. There is a small amount of contrast in several distended small bowel segments, likely small bowel obstruction. However, there is not adequate opacification to determine the transition point. KUB X-Ray 09/20/18 00:00 IMPRESSION: Stomach decompressed by nasogastric tube. Persistent gaseous distention of small bowel out of proportion to colon from small bowel obstruction Abdomen/Pelvis CT 09/23/18 00:00 IMPRESSION: Postsurgical changes of midline laparotomy. Additional mild inflammatory stranding about the right lower quadrant mesentery as well as amorphous fluid within the mid abdomen are also likely postsurgical in etiology. Otherwise, no acute abnormality within the abdomen or pelvis is identified. Bibasilar consolidation. Consider atelectasis or pneumonia to include aspiration. Hyperdensity within the gallbladder lumen either indicates vicarious excretion of previously administered contrast material or sludge/stones. TECHNICAL DOCUMENTATION: Quality ID # [id number]: Final reports with documentation of one or more dose reduction techniques (e.g., Automated exposure control, adjustment of the mA and/or kV according to patient size, use of iterative reconstruction technique) copyright 2011 [employer]- All Rights Reserved Chest X-Ray 09/24/18 00:00 IMPRESSION: Life lines as described. Airspace disease in the left lower lobe. Atelectasis versus pneumonia. Assessment & Plan - Diagnosis (1) Acute kidney injury Is this a current diagnosis for this admission?: Yes Plan: Kidney function slowly improving with hydration (2) Acute diverticulitis Is this a current diagnosis for this admission?: Yes (3) Atrial fibrillation with RVR Is this a current diagnosis for this admission?: Yes Plan: Patient still on amiodarone (4) Morbid obesity due to excess calories Is this a current diagnosis for this admission?: Yes (5) Hypotension Qualifiers: Hypotension type: unspecified hypotension type Qualified Code(s): I95.9 - Hypotension, unspecified Is this a current diagnosis for this admission?: Yes (6) Small bowel obstruction Is this a current diagnosis for this admission?: Yes (7) Hypernatremia Is this a current diagnosis for this admission?: Yes (8) Respiratory failure Qualifiers: Chronicity: unspecified Respiratory failure complication: unspecified whether with hypoxia or hypercapnia Qualified Code(s): J96.90 - Respiratory failure, unspecified, unspecified whether with hypoxia or hypercapnia Is this a current diagnosis for this admission?: Yes Plan: Patient on mechanical ventilation adjustment made of the vent setting (9) Sepsis following intra-abdominal surgery Is this a current diagnosis for this admission?: Yes Plan: Repeat CT scan did not show any abscess intraperitoneally
--- NOTE | 2018-09-24 20:57 | Progress Note ---
Provider Note Provider Note: CARDIOLOGY PROGRESS NOTE by Dr. Ana Dawn on 09/24/2018.
[2018-09-24] MEDS: ACETAMINOPHEN 650 MG SUPP.RECT PR PRN (21:58)
[2018-09-25] MEDS: MIDAZOLAM 2 MG/2 ML INJ IV PRN ×6 (01:36→17:51)
[2018-09-25] MEDS: PROPOFOL 1,000 MG/100 ML INFUS..BTL IV PRN ×10 (01:36→23:19)
[2018-09-25] MEDS: HYDROMORPHONE HCL INJ/PF 2 MG/ML AMPULE IV PRN ×5 (03:27→19:24)
[2018-09-25] MEDS: POTASSI CL 20 MEQ/NS 1L 1000 ML IV PRN (03:29)
[2018-09-25 03:52] LABS: ARTERIAL BLOOD BASE EXCESS -4.1 mmol/L; ARTERIAL BLOOD H2CO3 1.53 mmol/L (1.05-1.35); ARTERIAL BLOOD O2 SATURATION 90.9 % (94-98); ARTERIAL BLOOD PCO2 50.7 mmHg (35-45); ARTERIAL BLOOD PH 7.27 (7.35-7.45); ARTERIAL BLOOD PO2 67.6 mmHg (80-100); ARTERIAL BLOOD TOTAL CO2 24.5 mmol/L (23-27)
[2018-09-25 03:53] LABS: ARTERIAL BLOOD FIO2 65%
[2018-09-25 03:58] LABS: ABSOLUTE EOSINOPHILS # (AUTO) 0.5 10^3/uL (0.0-0.6); ABSOLUTE LYMPHOCYTES (AUTO) 1.3 10^3/uL (0.5-4.7); ABSOLUTE MONOCYTES (AUTO) 1.2 10^3/uL (0.1-1.4); ABSOLUTE NEUT (AUTO) 16.4 10^3/uL (1.7-8.2); BASOPHILS % (AUTO) 0.2 % (0-2); EOSINOPHILS % (AUTO) 2.4 % (0-6); HEMATOCRIT 32.6 % (37.9-51.0); HEMOGLOBIN 10.6 g/dL (13.5-17.0); LYMPHOCYTES % (AUTO) 6.6 % (13-45); MEAN CORPUSCULAR HGB CONC 32.7 g/dL (32.0-36.0); MEAN CORPUSCULAR VOLUME 83 fl (80-97); RED BLOOD COUNT 3.94 10^6/uL (4.35-5.55); RED CELL DISTRIBUTION WIDTH 16.9 % (11.5-14.0); SEGMENTED NEUTROPHILS % (AUTO) 84.8 % (42-78); TOTAL CELLS COUNTED % (AUTO) 100 %; WHITE BLOOD COUNT 19.4 10^3/uL (4.0-10.5)
[2018-09-25 04:07] LABS: ALANINE AMINOTRANSFERASE 45 U/L (21-72); ALBUMIN 2.1 g/dL (3.5-5.0); ALKALINE PHOSPHATASE 72 U/L (38-126); ASPARTATE AMINO TRANSFERASE 58 U/L (17-59); BILIRUBIN,DIRECT 1.1 mg/dL (0.0-0.4); BILIRUBIN,TOTAL 1.1 mg/dL (0.2-1.3); BLOOD UREA NITROGEN 21 mg/dL (7-20); CALCIUM 7.6 mg/dL (8.4-10.2); GLUCOSE 111 mg/dL (75-110); PHOSPHORUS 3.8 mg/dL (2.5-4.5); POTASSIUM 4.9 mmol/L (3.6-5.0); TOTAL PROTEIN 5.1 g/dL (6.3-8.2)
[2018-09-25 04:12] LABS: CARBON DIOXIDE 23 mmol/L (22-30); CHLORIDE 117 mmol/L (98-107); SODIUM 142.1 mmol/L (137-145)
[2018-09-25 04:13] LABS: ANION GAP 2 (5-19)
[2018-09-25 04:48] LABS: PLATELET COUNT 97 10^3/uL (150-450)
[2018-09-25] MEDS: IMIPENEM/CILASTATIN SODIUM 250 MG in NORMAL SALINE 100 ML IV SCH ×2 (05:33→17:40)
--- NOTE | 2018-09-25 09:25 | PDOC PROGRESS REPORT ---
Subjective Progress Note for:: 09/25/18 Subjective:: Intubated and sedated Reason For Visit: ACUTE KIDNEY INJURY,PAROXYSMAL ATRIAL FIBRILLATION Physical Exam Vital Signs: Temp Pulse Resp BP Pulse Ox 98.4 F 79 21 H 132/82 H 94 09/25/18 08:00 09/25/18 08:00 09/25/18 08:00 09/25/18 08:00 09/25/18 08:43 Intake & Output 09/24/18 09/25/18 09/26/18 06:59 06:59 06:59 Intake Total 7607 7005 100 Output Total 4501 51737 350 Balance 2064 -55740 -312 Weight 134.9 kg 134.8 kg Respiratory exam: PRESENT: rhonchi Cardiovascular exam: PRESENT: RRR GI/Abdominal exam: PRESENT: other - Soft, no apparent tenderness. Wound clean dry and intact. Drain output is serosanguineous. Extremities exam: PRESENT: other - Bilateral lower extremity edema right side worse than left. Results Laboratory Results: 09/25/18 03:44 09/25/18 03:44 09/24/18 09/25/18 09/25/18 17:00 03:44 03:44 WBC 19.4 H RBC 3.94 L Hgb 10.6 L Hct 32.6 L MCV 83 MCH 27.0 MCHC 32.7 RDW 16.9 H Plt Count 97 L Seg Neutrophils % 84.8 H Lymphocytes % 6.6 L Monocytes % 6.0 Eosinophils % 2.4 Basophils % 0.2 Absolute Neutrophils 16.4 H Absolute Lymphocytes 1.3 Absolute Monocytes 1.2 Absolute Eosinophils 0.5 Absolute Basophils 0.0 Carbonic Acid 1.41 H 1.53 H HCO3/H2CO3 Ratio 15:1 15:1 ABG pH 7.30 L 7.27 L ABG pCO2 47.0 H 50.7 H ABG pO2 61.6 L 67.6 L ABG HCO3 22.5 23.0 ABG O2 Saturation 89.0 L 90.9 L ABG Base Excess -4.1 -4.1 FiO2 65% 65% Sodium Potassium Chloride Carbon Dioxide Anion Gap BUN Creatinine Est GFR ( Amer) Est GFR (Non-Af Amer) Glucose Calcium Phosphorus Magnesium Total Bilirubin AST ALT Alkaline Phosphatase Total Protein Albumin 09/25/18 03:44 WBC RBC Hgb Hct MCV MCH MCHC RDW Plt Count Seg Neutrophils % Lymphocytes % Monocytes % Eosinophils % Basophils % Absolute Neutrophils Absolute Lymphocytes Absolute Monocytes Absolute Eosinophils Absolute Basophils Carbonic Acid HCO3/H2CO3 Ratio ABG pH ABG pCO2 ABG pO2 ABG HCO3 ABG O2 Saturation ABG Base Excess FiO2 Sodium 142.1 Potassium 4.9 Chloride 117 H Carbon Dioxide 23 Anion Gap 2 L BUN 21 H Creatinine 2.70 H Est GFR ( Amer) 29 L Est GFR (Non-Af Amer) 24 L Glucose 111 H Calcium 7.6 L Phosphorus 3.8 Magnesium 1.7 Total Bilirubin 1.1 AST 58 ALT 45 Alkaline Phosphatase 72 Total Protein 5.1 L Albumin 2.1 L 09/15/18 09/15/18 09/15/18 07:07 13:30 13:30 Creatine Kinase 261 H CK-MB (CK-2) 1.63 Troponin I 0.015 0.021 NT-Pro-B Natriuret Pep 239 09/15/18 09/15/18 09/17/18 20:35 20:35 09:48 Creatine Kinase 855 H 1250 H CK-MB (CK-2) 6.56 H Troponin I 0.022 NT-Pro-B Natriuret Pep 09/17/18 09/22/18 09:48 03:15 Creatine Kinase CK-MB (CK-2) 3.91 Troponin I < 0.012 0.041 NT-Pro-B Natriuret Pep Impressions: Renal Ultrasound 09/15/18 00:00 IMPRESSION: No evidence hydronephrosis. Small Bowel X-Ray 09/18/18 00:00 IMPRESSION: 1. At 3 hours, much of the contrast remains in the stomach. If clinically feasible, consider positioning patient on the right side to facilitate emptying of the stomach and better opacification of the small bowel. If this can be done, consider additional follow-up radiographs in several hours. 2. There is a small amount of contrast in several distended small bowel segments, likely small bowel obstruction. However, there is not adequate opacification to determine the transition point. KUB X-Ray 09/20/18 00:00 IMPRESSION: Stomach decompressed by nasogastric tube. Persistent gaseous distention of small bowel out of proportion to colon from small bowel obstruction Abdomen/Pelvis CT 09/23/18 00:00 IMPRESSION: Postsurgical changes of midline laparotomy. Additional mild inflammatory stranding about the right lower quadrant mesentery as well as amorphous fluid within the mid abdomen are also likely postsurgical in etiology. Otherwise, no acute abnormality within the abdomen or pelvis is identified. Bibasilar consolidation. Consider atelectasis or pneumonia to include aspiration. Hyperdensity within the gallbladder lumen either indicates vicarious excretion of previously administered contrast material or sludge/stones. TECHNICAL DOCUMENTATION: Quality ID # [id number]: Final reports with documentation of one or more dose reduction techniques (e.g., Automated exposure control, adjustment of the mA and/or kV according to patient size, use of iterative reconstruction technique) copyright 2011 [employer]- All Rights Reserved Chest X-Ray 09/24/18 00:00 IMPRESSION: Life lines as described. Airspace disease in the left lower lobe. Atelectasis versus pneumonia. Assessment & Plan - Diagnosis (1) Small bowel obstruction Is this a current diagnosis for this admission?: Yes Plan: Status post ileocecectomy. (2) Urinary retention Is this a current diagnosis for this admission?: Yes (3) Sepsis following intra-abdominal surgery Is this a current diagnosis for this admission?: Yes Plan: Looks much better hemodynamically. Continue supportive care. (4) Acute renal failure Is this a current diagnosis for this admission?: Yes Plan: Numbers improving. Diuresing well. I believe nursing staff recorded erroneous urine output yesterday but confirmed good urine output this morning with nurse. will stop all potassium supplementation. His CVP is running high. We will decrease IV fluids. (5) ARDS (adult respiratory distress syndrome) Is this a current diagnosis for this admission?: Yes Plan: Defer to medicine for management. (6) Edema extremities Is this a current diagnosis for this admission?: Yes Plan: Pending duplex study to rule out DVT. If he indeed has deep venous thrombosis may institute heparin but without a bolus in light of his recent surgery. Patient is on Lovenox.
[2018-09-25] MEDS: ENOXAPARIN SODIUM INJ 40 MG/0.4 ML DISP.SYRIN SUBCUT SCH (10:29)
[2018-09-25] MEDS: NORMAL SALINE 1000 ML 1,000 ML IV PRN (10:31)
[2018-09-25] MEDS ORDERED: ROCURONIUM BROMIDE INJ 50 MG/5 ML VIAL IV ONE (11:32)
[2018-09-25 13:01] LABS: ARTERIAL BLOOD FIO2 65%; ARTERIAL BLOOD H2CO3 1.19 mmol/L (1.05-1.35); ARTERIAL BLOOD HCO3 20.5 mmol/L (20-24); ARTERIAL BLOOD O2 SATURATION 91.9 % (94-98); ARTERIAL BLOOD PCO2 39.6 mmHg (35-45); ARTERIAL BLOOD PH 7.33 (7.35-7.45); ARTERIAL BLOOD PO2 66.3 mmHg (80-100); ARTERIAL BLOOD TOTAL CO2 21.7 mmol/L (23-27)
[2018-09-25] MEDS ORDERED: FUROSEMIDE INJ/PF 20 MG/2 ML SDV IV ONE (14:15)
[2018-09-25 15:23] LABS: HEMATOCRIT 32.6 % (37.9-51.0); HEMOGLOBIN 10.6 g/dL (13.5-17.0); MEAN CORPUSCULAR HEMOGLOBIN 26.9 pg (27.0-33.4); MEAN CORPUSCULAR HGB CONC 32.6 g/dL (32.0-36.0); MEAN CORPUSCULAR VOLUME 82 fl (80-97); PLATELET COUNT 115 10^3/uL (150-450); RED BLOOD COUNT 3.95 10^6/uL (4.35-5.55); RED CELL DISTRIBUTION WIDTH 17.1 % (11.5-14.0); WHITE BLOOD COUNT 18.4 10^3/uL (4.0-10.5)
[2018-09-25 15:32] LABS: APPEARANCE,URINE CLEAR; BILIRUBIN,URINE NEGATIVE (NEGATIVE); COLOR,URINE STRAW; GLUCOSE, URINE NEGATIVE (NEGATIVE); KETONES,URINE NEGATIVE (NEGATIVE); LEUKOCYTE ESTERASE,URINE NEGATIVE (NEGATIVE); NITRITE,URINE NEGATIVE (NEGATIVE); PROTEIN,URINE NEGATIVE (NEGATIVE); URINE SPECIFIC GRAVITY 1.004; UROBILINOGEN,URINE NEGATIVE mg/dL (<2.0)
[2018-09-25 15:41] LABS: INTERNATIONAL RATION (INR) 1.25; PROTHROMBIN TIME 16.3 SEC (11.4-15.4)
[2018-09-25 15:50] LABS: ABSOLUTE LYMPHOCYTES# (MANUAL) 1.7 10^3/uL (0.5-4.7); ABSOLUTE MONOCYTES # (MANUAL) 0.4 10^3/uL (0.1-1.4); ABSOLUTE NEUTROPHILS# (MANUAL) 15.1 10^3/uL (1.7-8.2); BAND NEUTROPHILS % (MANUAL) 1 % (3-5); BASOPHILS % (MANUAL) 0 % (0-2); EOSINOPHILS % (MANUAL) 7 % (0-6); LYMPHOCYTES % (MANUAL) 8 % (13-45); MONOCYTES % (MANUAL) 2 % (3-13); NUCLEATED RED BLOOD CELLS 2 /100 WBC (0); SEGMENTED NEUTROPHILS % (MAN) 81 % (42-78); TOTAL CELLS COUNTED 100
[2018-09-25 15:52] LABS: ANISOCYTOSIS 1+; POIKILOCYTOSIS SLIGHT; TOXIC VACUOLATION PRESENT
[2018-09-25 15:53] LABS: PLATELET COMMENT DECREASED; PLATELET LARGE PRESENT; SCHISTOCYTES SLIGHT; TARGET CELLS 1+; TEAR DROP CELLS SLIGHT
--- NOTE | 2018-09-25 16:34 | PDOC PROGRESS REPORT ---
Subjective Progress Note for:: 09/25/18 Reason For Visit: Patient seen in the ICU today. He remains intubated and sedated. Discussions were done with the treating nurse. He is making good urine output. Continues on IV fluids besides IV amiodarone. IV dobutamine and Cardizem has been discontinued. Labs and medications were reviewed.His white count and renal numbers are improving. Is currently in sinus rhythm. Physical Exam Vital Signs: Temp Pulse Resp BP Pulse Ox 98.4 F 85 21 H 149/78 H 95 09/25/18 12:00 09/25/18 14:00 09/25/18 15:06 09/25/18 15:06 09/25/18 15:06 Intake & Output 09/24/18 09/25/18 09/26/18 06:59 06:59 06:59 Intake Total 7607 7005 642 Output Total 4501 02129 1650 Balance 9473 -37718 -6388 Weight 134.9 kg 134.8 kg Exam: Remains intubated and sedated. Respiratory exam: PRESENT: clear to auscultation martita. ABSENT: decreased breath sounds Cardiovascular exam: PRESENT: +S1, +S2 GI/Abdominal exam: PRESENT: distended, firm - Soft-firm. ABSENT: normal bowel sounds Extremities exam: PRESENT: +1 edema Neurological exam: PRESENT: altered Skin exam: ABSENT: cyanosis, erythema, mottled Results Laboratory Results: 09/25/18 03:44 09/24/18 09/25/18 09/25/18 17:00 03:44 03:44 WBC 19.4 H RBC 3.94 L Hgb 10.6 L Hct 32.6 L MCV 83 MCH 27.0 MCHC 32.7 RDW 16.9 H Plt Count 97 L Seg Neutrophils % 84.8 H Lymphocytes % 6.6 L Monocytes % 6.0 Eosinophils % 2.4 Basophils % 0.2 Absolute Neutrophils 16.4 H Absolute Lymphocytes 1.3 Absolute Monocytes 1.2 Absolute Eosinophils 0.5 Absolute Basophils 0.0 Carbonic Acid 1.41 H 1.53 H HCO3/H2CO3 Ratio 15:1 15:1 ABG pH 7.30 L 7.27 L ABG pCO2 47.0 H 50.7 H ABG pO2 61.6 L 67.6 L ABG HCO3 22.5 23.0 ABG O2 Saturation 89.0 L 90.9 L ABG Base Excess -4.1 -4.1 FiO2 65% 65% Sodium Potassium Chloride Carbon Dioxide Anion Gap BUN Creatinine Est GFR ( Amer) Est GFR (Non-Af Amer) Glucose Calcium Phosphorus Magnesium Total Bilirubin AST ALT Alkaline Phosphatase Total Protein Albumin Urine Color Urine Appearance Urine pH Ur Specific [place] Urine Protein Urine Glucose (UA) Urine Ketones Urine Blood Urine Nitrite Ur Leukocyte Esterase Urine WBC (Auto) Urine RBC (Auto) 09/25/18 09/25/18 09/25/18 03:44 12:50 15:00 WBC RBC Hgb Hct MCV MCH MCHC RDW Plt Count Seg Neutrophils % Not Reportable Lymphocytes % Not Reportable Monocytes % Not Reportable Eosinophils % Not Reportable Basophils % Not Reportable Absolute Neutrophils Not Reportable Absolute Lymphocytes Not Reportable Absolute Monocytes Not Reportable Absolute Eosinophils Not Reportable Absolute Basophils Not Reportable Carbonic Acid 1.19 HCO3/H2CO3 Ratio 17:1 ABG pH 7.33 L ABG pCO2 39.6 ABG pO2 66.3 L ABG HCO3 20.5 ABG O2 Saturation 91.9 L ABG Base Excess -5.0 FiO2 65% Sodium 142.1 Potassium 4.9 Chloride 117 H Carbon Dioxide 23 Anion Gap 2 L BUN 21 H Creatinine 2.70 H Est GFR ( Amer) 29 L Est GFR (Non-Af Amer) 24 L Glucose 111 H Calcium 7.6 L Phosphorus 3.8 Magnesium 1.7 Total Bilirubin 1.1 AST 58 ALT 45 Alkaline Phosphatase 72 Total Protein 5.1 L Albumin 2.1 L Urine Color Urine Appearance Urine pH Ur Specific [place] Urine Protein Urine Glucose (UA) Urine Ketones Urine Blood Urine Nitrite Ur Leukocyte Esterase Urine WBC (Auto) Urine RBC (Auto) 09/25/18 15:00 WBC RBC Hgb Hct MCV MCH MCHC RDW Plt Count Seg Neutrophils % Lymphocytes % Monocytes % Eosinophils % Basophils % Absolute Neutrophils Absolute Lymphocytes Absolute Monocytes Absolute Eosinophils Absolute Basophils Carbonic Acid HCO3/H2CO3 Ratio ABG pH ABG pCO2 ABG pO2 ABG HCO3 ABG O2 Saturation ABG Base Excess FiO2 Sodium Potassium Chloride Carbon Dioxide Anion Gap BUN Creatinine Est GFR ( Amer) Est GFR (Non-Af Amer) Glucose Calcium Phosphorus Magnesium Total Bilirubin AST ALT Alkaline Phosphatase Total Protein Albumin Urine Color STRAW Urine Appearance CLEAR Urine pH 5.0 Ur Specific [place] 1.004 Urine Protein NEGATIVE Urine Glucose (UA) NEGATIVE Urine Ketones NEGATIVE Urine Blood SMALL H Urine Nitrite NEGATIVE Ur Leukocyte Esterase NEGATIVE Urine WBC (Auto) 1 Urine RBC (Auto) 1 09/15/18 09/15/18 09/15/18 07:07 13:30 13:30 Creatine Kinase 261 H CK-MB (CK-2) 1.63 Troponin I 0.015 0.021 NT-Pro-B Natriuret Pep 239 09/15/18 09/15/18 09/17/18 20:35 20:35 09:48 Creatine Kinase 855 H 1250 H CK-MB (CK-2) 6.56 H Troponin I 0.022 NT-Pro-B Natriuret Pep 09/17/18 09/22/18 09:48 03:15 Creatine Kinase CK-MB (CK-2) 3.91 Troponin I < 0.012 0.041 NT-Pro-B Natriuret Pep Impressions: Renal Ultrasound 09/15/18 00:00 IMPRESSION: No evidence hydronephrosis. Small Bowel X-Ray 09/18/18 00:00 IMPRESSION: 1. At 3 hours, much of the contrast remains in the stomach. If clinically feasible, consider positioning patient on the right side to facilitate emptying of the stomach and better opacification of the small bowel. If this can be done, consider additional follow-up radiographs in several hours. 2. There is a small amount of contrast in several distended small bowel segments, likely small bowel obstruction. However, there is not adequate opacification to determine the transition point. KUB X-Ray 09/20/18 00:00 IMPRESSION: Stomach decompressed by nasogastric tube. Persistent gaseous distention of small bowel out of proportion to colon from small bowel obstruction Abdomen/Pelvis CT 09/23/18 00:00 IMPRESSION: Postsurgical changes of midline laparotomy. Additional mild inflammatory stranding about the right lower quadrant mesentery as well as amorphous fluid within the mid abdomen are also likely postsurgical in etiology. Otherwise, no acute abnormality within the abdomen or pelvis is identified. Bibasilar consolidation. Consider atelectasis or pneumonia to include aspiration. Hyperdensity within the gallbladder lumen either indicates vicarious excretion of previously administered contrast material or sludge/stones. TECHNICAL DOCUMENTATION: Quality ID # [id number]: Final reports with documentation of one or more dose reduction techniques (e.g., Automated exposure control, adjustment of the mA and/or kV according to patient size, use of iterative reconstruction technique) copyright 2011 [employer]- All Rights Reserved Chest X-Ray 09/24/18 00:00 IMPRESSION: Life lines as described. Airspace disease in the left lower lobe. Atelectasis versus pneumonia. Assessment & Plan - Diagnosis (1) Acute kidney injury Is this a current diagnosis for this admission?: Yes Plan: Currently nonoliguric and has had a good diuretic response to current management. His renal numbers are improving. He has got some evidence of some fluid overload and therefore I am stopping his saline infusion. One would have to consider starting p.o. intake or TPN for calories. Discussed with treating ICU nurse.. (2) Atrial fibrillation with RVR Is this a current diagnosis for this admission?: Yes Plan: Now in sinus rhythm just on IV amiodarone. As per Dr. Jon. (3) Hypotension Qualifiers: Hypotension type: unspecified hypotension type Qualified Code(s): I95.9 - Hypotension, unspecified Is this a current diagnosis for this admission?: Yes Plan: Currently resolved and stable on current lines of management. (4) Morbid obesity due to excess calories Is this a current diagnosis for this admission?: Yes Plan: Status quo (5) Respiratory failure Qualifiers: Chronicity: acute Respiratory failure complication: hypoxia Qualified Code(s): J96.01 - Acute respiratory failure with hypoxia Is this a current diagnosis for this admission?: Yes Plan: Currently postop day 5. Intubated and sedated. (6) Small bowel obstruction Is this a current diagnosis for this admission?: Yes Plan: Secondary to apparent terminal ileal stricture.Underwent ileocecectomy and ileocolic anastomosis. Currently postop day 5. (7) Hypokalemia Plan: Currently stable. (8) Hypocalcemia Plan: Improving.
[2018-09-25] MEDS: HEPARIN SODIUM,PORCINE/D5W 25,000 UNIT/250 ML RTUINJ IV PRN (16:44)
--- NOTE | 2018-09-25 16:50 | XCELERA REPORT ---
[address] [address] Lower Extremity Venous Evaluation Procedure: Color flow and duplex imaging of the veins of the right lower extremity as well as the left Common Femoral vein. Right Sided Venous Evaluation Abnormal vessel filling wall to wall, no compression ,augmentation, or Colour flow, enlarged veins, with mostly echo poor material . From the Common Femoral to the Posterior Tibial veins. Left Sided Venous Evaluation The left common femoral vein is fully compressible. Spontaneous and phasic flow is present in the left common femoral vein. Critical Findings Discussed with Dr Gant. Interpretation Summary Unusually extensive Deep Venous thrombosis in the right lower extremity. Almost no named veins escape. Name: KRISH RAMOS JR S, Age: 63 yrs Gender: Male : 1955 Patient Status: Inpatient Patient Location: [address] Study Date: 09/25/2018 02:01 PM Reason For Study: CHECKING FOR DVT RIGHT LEG Ordering Physician: CARMEN GANT Performed By: Genia Okeefe : CARMEN GANT > Navi Gifford
[2018-09-25] MEDS ORDERED: HEPARIN SOD (PORCINE) 1,000 UNIT/ML 10 ML VIAL IV PRN ×3 (17:00→17:49)
--- NOTE | 2018-09-25 20:01 | PDOC PROGRESS REPORT ---
Subjective Progress Note for:: 09/25/18 Subjective:: Patient remained intubated and sedated Reason For Visit: ACUTE KIDNEY INJURY,PAROXYSMAL ATRIAL FIBRILLATION Physical Exam Vital Signs: Temp Pulse Resp BP Pulse Ox 98.4 F 90 28 H 155/82 H 97 09/25/18 12:00 09/25/18 18:00 09/25/18 18:06 09/25/18 18:06 09/25/18 18:06 Intake & Output 09/24/18 09/25/18 09/26/18 06:59 06:59 06:59 Intake Total 7607 7005 882 Output Total 4507 61662 2402 Balance 2713 -19172 -1472 Weight 134.9 kg 134.8 kg General appearance: PRESENT: no acute distress Eye exam: PRESENT: PERRLA Respiratory exam: PRESENT: clear to auscultation martita Cardiovascular exam: PRESENT: +S1, +S2 GI/Abdominal exam: PRESENT: soft Results Laboratory Results: 09/25/18 15:00 09/25/18 03:44 09/25/18 09/25/18 09/25/18 03:44 03:44 03:44 WBC 19.4 H RBC 3.94 L Hgb 10.6 L Hct 32.6 L MCV 83 MCH 27.0 MCHC 32.7 RDW 16.9 H Plt Count 97 L Seg Neutrophils % 84.8 H Lymphocytes % 6.6 L Monocytes % 6.0 Eosinophils % 2.4 Basophils % 0.2 Absolute Neutrophils 16.4 H Absolute Lymphocytes 1.3 Absolute Monocytes 1.2 Absolute Eosinophils 0.5 Absolute Basophils 0.0 Carbonic Acid 1.53 H HCO3/H2CO3 Ratio 15:1 ABG pH 7.27 L ABG pCO2 50.7 H ABG pO2 67.6 L ABG HCO3 23.0 ABG O2 Saturation 90.9 L ABG Base Excess -4.1 FiO2 65% Sodium 142.1 Potassium 4.9 Chloride 117 H Carbon Dioxide 23 Anion Gap 2 L BUN 21 H Creatinine 2.70 H Est GFR ( Amer) 29 L Est GFR (Non-Af Amer) 24 L Glucose 111 H Calcium 7.6 L Phosphorus 3.8 Magnesium 1.7 Total Bilirubin 1.1 AST 58 ALT 45 Alkaline Phosphatase 72 Total Protein 5.1 L Albumin 2.1 L Urine Color Urine Appearance Urine pH Ur Specific [place] Urine Protein Urine Glucose (UA) Urine Ketones Urine Blood Urine Nitrite Ur Leukocyte Esterase Urine WBC (Auto) Urine RBC (Auto) 09/25/18 09/25/18 09/25/18 12:50 15:00 15:00 WBC 18.4 H RBC 3.95 L Hgb 10.6 L Hct 32.6 L MCV 82 MCH 26.9 L MCHC 32.6 RDW 17.1 H Plt Count 115 L Seg Neutrophils % Not Reportable Lymphocytes % Not Reportable Monocytes % Not Reportable Eosinophils % Not Reportable Basophils % Not Reportable Absolute Neutrophils Not Reportable Absolute Lymphocytes Not Reportable Absolute Monocytes Not Reportable Absolute Eosinophils Not Reportable Absolute Basophils Not Reportable Carbonic Acid 1.19 HCO3/H2CO3 Ratio 17:1 ABG pH 7.33 L ABG pCO2 39.6 ABG pO2 66.3 L ABG HCO3 20.5 ABG O2 Saturation 91.9 L ABG Base Excess -5.0 FiO2 65% Sodium Potassium Chloride Carbon Dioxide Anion Gap BUN Creatinine Est GFR ( Amer) Est GFR (Non-Af Amer) Glucose Calcium Phosphorus Magnesium Total Bilirubin AST ALT Alkaline Phosphatase Total Protein Albumin Urine Color STRAW Urine Appearance CLEAR Urine pH 5.0 Ur Specific [place] 1.004 Urine Protein NEGATIVE Urine Glucose (UA) NEGATIVE Urine Ketones NEGATIVE Urine Blood SMALL H Urine Nitrite NEGATIVE Ur Leukocyte Esterase NEGATIVE Urine WBC (Auto) 1 Urine RBC (Auto) 1 09/15/18 09/15/18 09/15/18 07:07 13:30 13:30 Creatine Kinase 261 H CK-MB (CK-2) 1.63 Troponin I 0.015 0.021 NT-Pro-B Natriuret Pep 239 09/15/18 09/15/18 09/17/18 20:35 20:35 09:48 Creatine Kinase 855 H 1250 H CK-MB (CK-2) 6.56 H Troponin I 0.022 NT-Pro-B Natriuret Pep 09/17/18 09/22/18 09:48 03:15 Creatine Kinase CK-MB (CK-2) 3.91 Troponin I < 0.012 0.041 NT-Pro-B Natriuret Pep Impressions: Renal Ultrasound 09/15/18 00:00 IMPRESSION: No evidence hydronephrosis. Small Bowel X-Ray 09/18/18 00:00 IMPRESSION: 1. At 3 hours, much of the contrast remains in the stomach. If clinically feasible, consider positioning patient on the right side to facilitate emptying of the stomach and better opacification of the small bowel. If this can be done, consider additional follow-up radiographs in several hours. 2. There is a small amount of contrast in several distended small bowel segments, likely small bowel obstruction. However, there is not adequate opacification to determine the transition point. KUB X-Ray 09/20/18 00:00 IMPRESSION: Stomach decompressed by nasogastric tube. Persistent gaseous distention of small bowel out of proportion to colon from small bowel obstruction Abdomen/Pelvis CT 09/23/18 00:00 IMPRESSION: Postsurgical changes of midline laparotomy. Additional mild inflammatory stranding about the right lower quadrant mesentery as well as amorphous fluid within the mid abdomen are also likely postsurgical in etiology. Otherwise, no acute abnormality within the abdomen or pelvis is identified. Bibasilar consolidation. Consider atelectasis or pneumonia to include aspiration. Hyperdensity within the gallbladder lumen either indicates vicarious excretion of previously administered contrast material or sludge/stones. TECHNICAL DOCUMENTATION: Quality ID # 436: Final reports with documentation of one or more dose reduction techniques (e.g., Automated exposure control, adjustment of the mA and/or kV according to patient size, use of iterative reconstruction technique) copyright 2011 [employer]- All Rights Reserved Chest X-Ray 09/24/18 00:00 IMPRESSION: Life lines as described. Airspace disease in the left lower lobe. Atelectasis versus pneumonia. Assessment & Plan - Diagnosis (1) Acute kidney injury Is this a current diagnosis for this admission?: Yes Plan: Kidney funtion improving (2) Acute diverticulitis Is this a current diagnosis for this admission?: Yes (3) Atrial fibrillation with RVR Is this a current diagnosis for this admission?: Yes (4) Morbid obesity due to excess calories Is this a current diagnosis for this admission?: Yes (5) Hypotension Qualifiers: Hypotension type: unspecified hypotension type Qualified Code(s): I95.9 - Hypotension, unspecified Is this a current diagnosis for this admission?: Yes (6) Small bowel obstruction Is this a current diagnosis for this admission?: Yes (7) Hypernatremia Is this a current diagnosis for this admission?: Yes (8) Respiratory failure Qualifiers: Chronicity: unspecified Respiratory failure complication: unspecified whether with hypoxia or hypercapnia Qualified Code(s): J96.90 - Respiratory failure, unspecified, unspecified whether with hypoxia or hypercapnia Is this a current diagnosis for this admission?: Yes Plan: Vent setting adjusted, is acidotic, tidal volume increased to 550, RR remains at 18, (9) Sepsis following intra-abdominal surgery Is this a current diagnosis for this admission?: Yes (10) Deep vein thrombosis (DVT) of proximal vein of right lower extremity Qualifiers: Chronicity: acute Qualified Code(s): I82.4Y1 - Acute embolism and thrombosis of unspecified deep veins of right proximal lower extremity Is this a current diagnosis for this admission?: Yes Plan: He has extensive deep venous thrombosis of the right lower extremity, patient to be started on IV heparin, it is to be noted that patient is actually on DVT prophylaxis, despite DVT prophylaxis still from extensive DVT - Plan Summary Plan Summary: Start tube feed
[2018-09-25] MEDS: DEXTROSE 5%-WATER 500 ML with AMIODARONE HCL 900 MG IV PRN ×2 (20:23)
--- NOTE | 2018-09-25 20:27 | RADIOLOGY REPORT (SQ) ---
EXAM DESCRIPTION: XR CHEST 1 VIEW COMPLETED DATE/TME: 09/25/2018 00:00 CLINICAL HISTORY: 63 years, Male, hypoxemia COMPARISON: 09/24/2018. Heart is mildly enlarged. Enteric tube is in place with tip below the diaphragm in the stomach. Right IJ CVC is in place. Left chest dual-lead pacemaker. No pneumothorax. Mild bibasilar atelectatic changes. Tip of the endotracheal tube is noted, appears displaced superiorly above the thoracic inlet, about 12 cm above the [place]. IMPRESSION: Bibasilar atelectatic changes. Endotracheal tube appears high, above the thoracic inlet.
--- NOTE | 2018-09-25 21:33 | RADIOLOGY REPORT (SQ) ---
EXAM DESCRIPTION: XR CHEST 1 VIEW COMPLETED DATE/TME: 09/25/2018 at 9:00 PM. CLINICAL HISTORY: 63 years, Male, re-placement of ET Tube Compared to 09/25/2018 at 8:07 PM. FINDINGS: Endotracheal tube is in appropriate placement with tip about 5 cm above the [place]. Enteric tube is in place with tip below the diaphragm in the stomach. Right IJ CVC. No pneumothorax. Left chest dual-lead pacemaker. Mild bibasilar atelectatic changes. IMPRESSION: Endotracheal tube now in appropriate position.
[2018-09-26] MEDS: PROPOFOL 1,000 MG/100 ML INFUS..BTL IV PRN ×9 (02:08→23:40)
[2018-09-26] MEDS: HEPARIN SODIUM,PORCINE/D5W 25,000 UNIT/250 ML RTUINJ IV PRN ×3 (02:09→22:44)
[2018-09-26] MEDS: HYDROMORPHONE HCL INJ/PF 2 MG/ML AMPULE IV PRN ×5 (02:10→22:46)
[2018-09-26 04:22] LABS: ARTERIAL BLOOD BASE EXCESS -2.2 mmol/L; ARTERIAL BLOOD H2CO3 1.05 mmol/L (1.05-1.35); ARTERIAL BLOOD HCO3 21.9 mmol/L (20-24); ARTERIAL BLOOD PCO2 34.8 mmHg (35-45); ARTERIAL BLOOD PH 7.42 (7.35-7.45); ARTERIAL BLOOD PO2 88.6 mmHg (80-100)
[2018-09-26 04:25] LABS: HEMOGLOBIN 10.3 g/dL (13.5-17.0); MEAN CORPUSCULAR HEMOGLOBIN 27.1 pg (27.0-33.4); MEAN CORPUSCULAR HGB CONC 33.1 g/dL (32.0-36.0); MEAN CORPUSCULAR VOLUME 82 fl (80-97); PLATELET COUNT 128 10^3/uL (150-450); RED BLOOD COUNT 3.79 10^6/uL (4.35-5.55); RED CELL DISTRIBUTION WIDTH 16.7 % (11.5-14.0); WHITE BLOOD COUNT 14.7 10^3/uL (4.0-10.5)
[2018-09-26 04:26] LABS: ARTERIAL BLOOD FIO2 60%
[2018-09-26 04:44] LABS: APPEARANCE,URINE CLEAR; BILIRUBIN,URINE NEGATIVE (NEGATIVE); COLOR,URINE YELLOW; GLUCOSE, URINE NEGATIVE (NEGATIVE); KETONES,URINE NEGATIVE (NEGATIVE); LEUKOCYTE ESTERASE,URINE NEGATIVE (NEGATIVE); NITRITE,URINE NEGATIVE (NEGATIVE); PROTEIN,URINE 30 mg/dL (NEGATIVE); URINE SPECIFIC GRAVITY 1.016; UROBILINOGEN,URINE NEGATIVE mg/dL (<2.0)
[2018-09-26] MEDS: IMIPENEM/CILASTATIN SODIUM 250 MG in NORMAL SALINE 100 ML IV SCH ×2 (04:59→17:11)
--- NOTE | 2018-09-26 06:32 | RADIOLOGY REPORT (SQ) ---
CLINICAL HISTORY: RESPIRATORY FAILURE PATIENT ON VENT COMPARISON: September 25, 2018. TECHNIQUE: XR CHEST 1 VIEW 09/26/2018 6:00 AM CDT FINDINGS: The heart is enlarged. There is slightly increasing bibasilar airspace disease. There is no pleural effusion. There is no pneumothorax. There are no acute osseous findings. Right IJ central line, endotracheal and nasogastric tubes as well as the left pacemaker are unchanged. IMPRESSION: Worsening bibasilar pneumonia.
--- NOTE | 2018-09-26 09:11 | PDOC PROGRESS REPORT ---
Subjective Progress Note for:: 09/26/18 Subjective:: Still intubated Reason For Visit: ACUTE KIDNEY INJURY,PAROXYSMAL ATRIAL FIBRILLATION Physical Exam Vital Signs: Temp Pulse Resp BP Pulse Ox 99.5 F 101 H 23 H 154/90 H 95 09/26/18 08:00 09/26/18 08:17 09/26/18 08:17 09/26/18 08:17 09/26/18 08:17 Intake & Output 09/25/18 09/26/18 09/27/18 06:59 06:59 06:59 Intake Total 7005 2198 99 Output Total 71741 4130 250 Balance -81368 -1932 -151 Weight 134.8 kg 133.8 kg Exam: Still intubated NGT less drainage Abdomen is soft , not distended Results Laboratory Results: 09/26/18 03:52 09/25/18 03:44 09/25/18 09/25/18 09/25/18 12:50 15:00 15:00 WBC 18.4 H RBC 3.95 L Hgb 10.6 L Hct 32.6 L MCV 82 MCH 26.9 L MCHC 32.6 RDW 17.1 H Plt Count 115 L Seg Neutrophils % Not Reportable Lymphocytes % Not Reportable Monocytes % Not Reportable Eosinophils % Not Reportable Basophils % Not Reportable Absolute Neutrophils Not Reportable Absolute Lymphocytes Not Reportable Absolute Monocytes Not Reportable Absolute Eosinophils Not Reportable Absolute Basophils Not Reportable Carbonic Acid 1.19 HCO3/H2CO3 Ratio 17:1 ABG pH 7.33 L ABG pCO2 39.6 ABG pO2 66.3 L ABG HCO3 20.5 ABG O2 Saturation 91.9 L ABG Base Excess -5.0 FiO2 65% Urine Color STRAW Urine Appearance CLEAR Urine pH 5.0 Ur Specific [place] 1.004 Urine Protein NEGATIVE Urine Glucose (UA) NEGATIVE Urine Ketones NEGATIVE Urine Blood SMALL H Urine Nitrite NEGATIVE Ur Leukocyte Esterase NEGATIVE Urine WBC (Auto) 1 Urine RBC (Auto) 1 09/26/18 09/26/18 09/26/18 03:52 03:52 04:10 WBC 14.7 H RBC 3.79 L Hgb 10.3 L Hct 31.0 L MCV 82 MCH 27.1 MCHC 33.1 RDW 16.7 H Plt Count 128 L Seg Neutrophils % Lymphocytes % Monocytes % Eosinophils % Basophils % Absolute Neutrophils Absolute Lymphocytes Absolute Monocytes Absolute Eosinophils Absolute Basophils Carbonic Acid 1.05 HCO3/H2CO3 Ratio 20:1 ABG pH 7.42 ABG pCO2 34.8 L ABG pO2 88.6 ABG HCO3 21.9 ABG O2 Saturation 97.0 ABG Base Excess -2.2 FiO2 60% Urine Color YELLOW Urine Appearance CLEAR Urine pH 5.0 Ur Specific [place] 1.016 Urine Protein 30 H Urine Glucose (UA) NEGATIVE Urine Ketones NEGATIVE Urine Blood SMALL H Urine Nitrite NEGATIVE Ur Leukocyte Esterase NEGATIVE Urine WBC (Auto) 2 Urine RBC (Auto) 6 09/15/18 09/15/18 09/15/18 07:07 13:30 13:30 Creatine Kinase 261 H CK-MB (CK-2) 1.63 Troponin I 0.015 0.021 NT-Pro-B Natriuret Pep 239 09/15/18 09/15/18 09/17/18 20:35 20:35 09:48 Creatine Kinase 855 H 1250 H CK-MB (CK-2) 6.56 H Troponin I 0.022 NT-Pro-B Natriuret Pep 09/17/18 09/22/18 09:48 03:15 Creatine Kinase CK-MB (CK-2) 3.91 Troponin I < 0.012 0.041 NT-Pro-B Natriuret Pep Impressions: Renal Ultrasound 09/15/18 00:00 IMPRESSION: No evidence hydronephrosis. Small Bowel X-Ray 09/18/18 00:00 IMPRESSION: 1. At 3 hours, much of the contrast remains in the stomach. If clinically feasible, consider positioning patient on the right side to facilitate emptying of the stomach and better opacification of the small bowel. If this can be done, consider additional follow-up radiographs in several hours. 2. There is a small amount of contrast in several distended small bowel segments, likely small bowel obstruction. However, there is not adequate opacification to determine the transition point. KUB X-Ray 09/20/18 00:00 IMPRESSION: Stomach decompressed by nasogastric tube. Persistent gaseous distention of small bowel out of proportion to colon from small bowel obstruction Abdomen/Pelvis CT 09/23/18 00:00 IMPRESSION: Postsurgical changes of midline laparotomy. Additional mild inflammatory stranding about the right lower quadrant mesentery as well as amorphous fluid within the mid abdomen are also likely postsurgical in etiology. Otherwise, no acute abnormality within the abdomen or pelvis is identified. Bibasilar consolidation. Consider atelectasis or pneumonia to include aspiration. Hyperdensity within the gallbladder lumen either indicates vicarious excretion of previously administered contrast material or sludge/stones. TECHNICAL DOCUMENTATION: Quality ID # 436: Final reports with documentation of one or more dose reduction techniques (e.g., Automated exposure control, adjustment of the mA and/or kV according to patient size, use of iterative reconstruction technique) copyright 2011 [employer]- All Rights Reserved Chest X-Ray 09/26/18 06:00 IMPRESSION: Worsening bibasilar pneumonia. Assessment & Plan - Diagnosis (1) Acute gastric dilatation Is this a current diagnosis for this admission?: Yes (2) Abdominal pain Qualifiers: Abdominal location: generalized Qualified Code(s): R10.84 - Generalized abdominal pain Is this a current diagnosis for this admission?: Yes (3) Ileus Is this a current diagnosis for this admission?: Yes - Time Time Spent with patient: 15-24 minutes - Inpatient Certification Medical Necessity: Need Close Monitoring Due to Risk of Patient Decompensation, Need For IV Fluids, Risk of Complication if Not Cared For in Hospital - Plan Summary Plan Summary: Possible extubation today by medicine Leave NGT for now
--- NOTE | 2018-09-26 11:47 | PDOC PROGRESS REPORT ---
Subjective Progress Note for:: 09/26/18 Reason For Visit: Patient seen today in the ICU. He remains intubated and sedated. Vital signs are stable. He still continues to make good urine output. Labs and medications were reviewed.He has a CBC done which shows downtrending of his white count. Unfortunately no chemistries were ordered and I am ordering one. Physical Exam Vital Signs: Temp Pulse Resp BP Pulse Ox 99.5 F 101 H 23 H 154/90 H 95 09/26/18 08:00 09/26/18 08:17 09/26/18 08:17 09/26/18 08:17 09/26/18 08:17 Intake & Output 09/25/18 09/26/18 09/27/18 06:59 06:59 06:59 Intake Total 7005 2198 187 Output Total 94528 4130 450 Balance -33857 -1932 -263 Weight 134.8 kg 133.8 kg Exam: Remains intubated and sedated. Respiratory exam: PRESENT: clear to auscultation martita. ABSENT: crackles Cardiovascular exam: PRESENT: +S1, +S2 GI/Abdominal exam: PRESENT: distended, soft. ABSENT: normal bowel sounds, organomegaly, tenderness Extremities exam: PRESENT: pedal edema Neurological exam: PRESENT: altered Skin exam: ABSENT: erythema, mottled, rash Results Laboratory Results: 09/26/18 03:52 09/25/18 03:44 09/25/18 09/25/18 09/25/18 12:50 15:00 15:00 WBC 18.4 H RBC 3.95 L Hgb 10.6 L Hct 32.6 L MCV 82 MCH 26.9 L MCHC 32.6 RDW 17.1 H Plt Count 115 L Seg Neutrophils % Not Reportable Lymphocytes % Not Reportable Monocytes % Not Reportable Eosinophils % Not Reportable Basophils % Not Reportable Absolute Neutrophils Not Reportable Absolute Lymphocytes Not Reportable Absolute Monocytes Not Reportable Absolute Eosinophils Not Reportable Absolute Basophils Not Reportable Carbonic Acid 1.19 HCO3/H2CO3 Ratio 17:1 ABG pH 7.33 L ABG pCO2 39.6 ABG pO2 66.3 L ABG HCO3 20.5 ABG O2 Saturation 91.9 L ABG Base Excess -5.0 FiO2 65% Urine Color STRAW Urine Appearance CLEAR Urine pH 5.0 Ur Specific [place] 1.004 Urine Protein NEGATIVE Urine Glucose (UA) NEGATIVE Urine Ketones NEGATIVE Urine Blood SMALL H Urine Nitrite NEGATIVE Ur Leukocyte Esterase NEGATIVE Urine WBC (Auto) 1 Urine RBC (Auto) 1 09/26/18 09/26/18 09/26/18 03:52 03:52 04:10 WBC 14.7 H RBC 3.79 L Hgb 10.3 L Hct 31.0 L MCV 82 MCH 27.1 MCHC 33.1 RDW 16.7 H Plt Count 128 L Seg Neutrophils % Lymphocytes % Monocytes % Eosinophils % Basophils % Absolute Neutrophils Absolute Lymphocytes Absolute Monocytes Absolute Eosinophils Absolute Basophils Carbonic Acid 1.05 HCO3/H2CO3 Ratio 20:1 ABG pH 7.42 ABG pCO2 34.8 L ABG pO2 88.6 ABG HCO3 21.9 ABG O2 Saturation 97.0 ABG Base Excess -2.2 FiO2 60% Urine Color YELLOW Urine Appearance CLEAR Urine pH 5.0 Ur Specific [place] 1.016 Urine Protein 30 H Urine Glucose (UA) NEGATIVE Urine Ketones NEGATIVE Urine Blood SMALL H Urine Nitrite NEGATIVE Ur Leukocyte Esterase NEGATIVE Urine WBC (Auto) 2 Urine RBC (Auto) 6 09/15/18 09/15/18 09/15/18 07:07 13:30 13:30 Creatine Kinase 261 H CK-MB (CK-2) 1.63 Troponin I 0.015 0.021 NT-Pro-B Natriuret Pep 239 09/15/18 09/15/18 09/17/18 20:35 20:35 09:48 Creatine Kinase 855 H 1250 H CK-MB (CK-2) 6.56 H Troponin I 0.022 NT-Pro-B Natriuret Pep 09/17/18 09/22/18 09:48 03:15 Creatine Kinase CK-MB (CK-2) 3.91 Troponin I < 0.012 0.041 NT-Pro-B Natriuret Pep Impressions: Renal Ultrasound 09/15/18 00:00 IMPRESSION: No evidence hydronephrosis. Small Bowel X-Ray 09/18/18 00:00 IMPRESSION: 1. At 3 hours, much of the contrast remains in the stomach. If clinically feasible, consider positioning patient on the right side to facilitate emptying of the stomach and better opacification of the small bowel. If this can be done, consider additional follow-up radiographs in several hours. 2. There is a small amount of contrast in several distended small bowel segments, likely small bowel obstruction. However, there is not adequate opacification to determine the transition point. KUB X-Ray 09/20/18 00:00 IMPRESSION: Stomach decompressed by nasogastric tube. Persistent gaseous distention of small bowel out of proportion to colon from small bowel obstruction Abdomen/Pelvis CT 09/23/18 00:00 IMPRESSION: Postsurgical changes of midline laparotomy. Additional mild inflammatory stranding about the right lower quadrant mesentery as well as amorphous fluid within the mid abdomen are also likely postsurgical in etiology. Otherwise, no acute abnormality within the abdomen or pelvis is identified. Bibasilar consolidation. Consider atelectasis or pneumonia to include aspiration. Hyperdensity within the gallbladder lumen either indicates vicarious excretion of previously administered contrast material or sludge/stones. TECHNICAL DOCUMENTATION: Quality ID # 436: Final reports with documentation of one or more dose reduction techniques (e.g., Automated exposure control, adjustment of the mA and/or kV according to patient size, use of iterative reconstruction technique) copyright 2011 [employer]- All Rights Reserved Chest X-Ray 09/26/18 06:00 IMPRESSION: Worsening bibasilar pneumonia. Assessment & Plan - Diagnosis (1) Acute kidney injury Is this a current diagnosis for this admission?: Yes Plan: Currently nonoliguric and has had a good response to current management. Unfortunately no chemistries were ordered for this morning and I am going to order one and will follow up on that. Otherwise we will continue current lines of management. (2) Atrial fibrillation with RVR Is this a current diagnosis for this admission?: Yes Plan: Now in sinus rhythm just on IV amiodarone. As per Dr. Jon. (3) Hypotension Qualifiers: Hypotension type: unspecified hypotension type Qualified Code(s): I95.9 - Hypotension, unspecified Is this a current diagnosis for this admission?: Yes Plan: Currently resolved and stable on current lines of management. (4) Respiratory failure Qualifiers: Chronicity: acute Respiratory failure complication: hypoxia Qualified Code(s): J96.01 - Acute respiratory failure with hypoxia Is this a current diagnosis for this admission?: Yes (5) Small bowel obstruction Is this a current diagnosis for this admission?: Yes Plan: Secondary to apparent terminal ileal stricture.Underwent ileocecectomy and il eocolic anastomosis. Currently postop day 6. (6) Hypocalcemia Plan: Improving.
[2018-09-26 12:45] LABS: BLOOD UREA NITROGEN 18 mg/dL (7-20); GLUCOSE 107 mg/dL (75-110); POTASSIUM 3.9 mmol/L (3.6-5.0)
[2018-09-26 13:06] LABS: ANION GAP 4 (5-19); CARBON DIOXIDE 25 mmol/L (22-30); CHLORIDE 117 mmol/L (98-107); SODIUM 146.3 mmol/L (137-145)
--- NOTE | 2018-09-26 17:43 | PDOC PROGRESS REPORT ---
Subjective Progress Note for:: 09/26/18 Subjective:: Attempts to wean patient off mechanical ventilation was not successful, he became very tachypneic, patient will be transferred to [facility] in [place] to help with weaning of patient of the vent Reason For Visit: ACUTE KIDNEY INJURY,PAROXYSMAL ATRIAL FIBRILLATION Physical Exam Vital Signs: Temp Pulse Resp BP Pulse Ox 99.9 F 94 28 H 149/87 H 99 09/26/18 16:00 09/26/18 16:00 09/26/18 16:00 09/26/18 16:00 09/26/18 16:48 Intake & Output 09/25/18 09/26/18 09/27/18 06:59 06:59 06:59 Intake Total 7004 2198 531 Output Total 80995 4130 1225 Balance -48323 -1932 -694 Weight 134.8 kg 133.8 kg Respiratory exam: PRESENT: rhonchi Cardiovascular exam: PRESENT: +S1, +S2 GI/Abdominal exam: PRESENT: soft Results Laboratory Results: 09/26/18 03:52 09/26/18 11:52 09/26/18 09/26/18 09/26/18 03:52 03:52 04:10 WBC 14.7 H RBC 3.79 L Hgb 10.3 L Hct 31.0 L MCV 82 MCH 27.1 MCHC 33.1 RDW 16.7 H Plt Count 128 L Carbonic Acid 1.05 HCO3/H2CO3 Ratio 20:1 ABG pH 7.42 ABG pCO2 34.8 L ABG pO2 88.6 ABG HCO3 21.9 ABG O2 Saturation 97.0 ABG Base Excess -2.2 FiO2 60% Sodium Potassium Chloride Carbon Dioxide Anion Gap BUN Creatinine Est GFR ( Amer) Est GFR (Non-Af Amer) Glucose Calcium Urine Color YELLOW Urine Appearance CLEAR Urine pH 5.0 Ur Specific [place] 1.016 Urine Protein 30 H Urine Glucose (UA) NEGATIVE Urine Ketones NEGATIVE Urine Blood SMALL H Urine Nitrite NEGATIVE Ur Leukocyte Esterase NEGATIVE Urine WBC (Auto) 2 Urine RBC (Auto) 6 09/26/18 11:52 WBC RBC Hgb Hct MCV MCH MCHC RDW Plt Count Carbonic Acid HCO3/H2CO3 Ratio ABG pH ABG pCO2 ABG pO2 ABG HCO3 ABG O2 Saturation ABG Base Excess FiO2 Sodium 146.3 H Potassium 3.9 Chloride 117 H Carbon Dioxide 25 Anion Gap 4 L BUN 18 Creatinine 1.75 H Est GFR ( Amer) 48 L Est GFR (Non-Af Amer) 39 L Glucose 107 Calcium 8.0 L Urine Color Urine Appearance Urine pH Ur Specific [place] Urine Protein Urine Glucose (UA) Urine Ketones Urine Blood Urine Nitrite Ur Leukocyte Esterase Urine WBC (Auto) Urine RBC (Auto) 09/15/18 09/15/18 09/15/18 07:07 13:30 13:30 Creatine Kinase 261 H CK-MB (CK-2) 1.63 Troponin I 0.015 0.021 NT-Pro-B Natriuret Pep 239 09/15/18 09/15/18 09/17/18 20:35 20:35 09:48 Creatine Kinase 855 H 1250 H CK-MB (CK-2) 6.56 H Troponin I 0.022 NT-Pro-B Natriuret Pep 09/17/18 09/22/18 09:48 03:15 Creatine Kinase CK-MB (CK-2) 3.91 Troponin I < 0.012 0.041 NT-Pro-B Natriuret Pep Impressions: Renal Ultrasound 09/15/18 00:00 IMPRESSION: No evidence hydronephrosis. Small Bowel X-Ray 09/18/18 00:00 IMPRESSION: 1. At 3 hours, much of the contrast remains in the stomach. If clinically feasible, consider positioning patient on the right side to facilitate emptying of the stomach and better opacification of the small bowel. If this can be done, consider additional follow-up radiographs in several hours. 2. There is a small amount of contrast in several distended small bowel segments, likely small bowel obstruction. However, there is not adequate opacification to determine the transition point. KUB X-Ray 09/20/18 00:00 IMPRESSION: Stomach decompressed by nasogastric tube. Persistent gaseous distention of small bowel out of proportion to colon from small bowel obstruction Abdomen/Pelvis CT 09/23/18 00:00 IMPRESSION: Postsurgical changes of midline laparotomy. Additional mild inflammatory stranding about the right lower quadrant mesentery as well as amorphous fluid within the mid abdomen are also likely postsurgical in etiology. Otherwise, no acute abnormality within the abdomen or pelvis is identified. Bibasilar consolidation. Consider atelectasis or pneumonia to include aspiration. Hyperdensity within the gallbladder lumen either indicates vicarious excretion of previously administered contrast material or sludge/stones. TECHNICAL DOCUMENTATION: Quality ID # 436: Final reports with documentation of one or more dose reduction techniques (e.g., Automated exposure control, adjustment of the mA and/or kV according to patient size, use of iterative reconstruction technique) copyright 2011 [employer]- All Rights Reserved Chest X-Ray 09/26/18 06:00 IMPRESSION: Worsening bibasilar pneumonia. Assessment & Plan - Diagnosis (1) Acute kidney injury Is this a current diagnosis for this admission?: Yes Plan: Kidney funtion improving (2) Acute diverticulitis Is this a current diagnosis for this admission?: Yes (3) Atrial fibrillation with RVR Is this a current diagnosis for this admission?: Yes (4) Morbid obesity due to excess calories Is this a current diagnosis for this admission?: Yes (5) Hypotension Qualifiers: Hypotension type: unspecified hypotension type Qualified Code(s): I95.9 - Hypotension, unspecified Is this a current diagnosis for this admission?: Yes (6) Small bowel obstruction Is this a current diagnosis for this admission?: Yes (7) Hypernatremia Is this a current diagnosis for this admission?: Yes (8) Respiratory failure Qualifiers: Chronicity: unspecified Respiratory failure complication: unspecified whether with hypoxia or hypercapnia Qualified Code(s): J96.90 - Respiratory failure, unspecified, unspecified whether with hypoxia or hypercapnia Is this a current diagnosis for this admission?: Yes Plan: Continue mechanical ventilation, patient failed weaning attempts, we transferred to [facility] (9) Sepsis following intra-abdominal surgery Is this a current diagnosis for this admission?: Yes (10) Deep vein thrombosis (DVT) of proximal vein of right lower extremity Qualifiers: Chronicity: acute Qualified Code(s): I82.4Y1 - Acute embolism and thrombosi s of unspecified deep veins of right proximal lower extremity Is this a current diagnosis for this admission?: Yes Plan: continue IV heparin
[2018-09-26] MEDS: ACETAMINOPHEN SOLN 325 MG/10.15 ML UDCUP NG PRN (22:45)
[2018-09-27] MEDS ORDERED: AMIODARONE HCL 200 MG TABLET NG ONE ×2 (02:15→03:30)
[2018-09-27] MEDS: PROPOFOL 1,000 MG/100 ML INFUS..BTL IV PRN ×6 (03:11→23:34)
[2018-09-27] MEDS: MIDAZOLAM 2 MG/2 ML INJ IV PRN ×2 (03:12→05:10)
[2018-09-27] MEDS: ACETAMINOPHEN SOLN 325 MG/10.15 ML UDCUP NG PRN ×2 (03:12→18:36)
[2018-09-27 04:13] LABS: ARTERIAL BLOOD BASE EXCESS 2.2 mmol/L; ARTERIAL BLOOD H2CO3 1.12 mmol/L (1.05-1.35); ARTERIAL BLOOD PCO2 37.3 mmHg (35-45); ARTERIAL BLOOD PH 7.46 (7.35-7.45); ARTERIAL BLOOD PO2 61.7 mmHg (80-100); ARTERIAL BLOOD TOTAL CO2 27.1 mmol/L (23-27)
[2018-09-27 04:14] LABS: ARTERIAL BLOOD FIO2 30%
[2018-09-27] MEDS: HYDROMORPHONE HCL INJ/PF 2 MG/ML AMPULE IV PRN ×6 (04:30→18:23)
[2018-09-27] MEDS: NORMAL SALINE 1000 ML 1,000 ML IV PRN ×2 (04:36→18:26)
[2018-09-27] MEDS: IMIPENEM/CILASTATIN SODIUM 250 MG in NORMAL SALINE 100 ML IV SCH ×2 (05:00→18:22)
[2018-09-27 05:23] LABS: ALANINE AMINOTRANSFERASE 57 U/L (21-72); ALBUMIN 2.2 g/dL (3.5-5.0); ALKALINE PHOSPHATASE 73 U/L (38-126); ANION GAP 7 (5-19); ASPARTATE AMINO TRANSFERASE 57 U/L (17-59); BILIRUBIN,DIRECT 1.3 mg/dL (0.0-0.4); BILIRUBIN,TOTAL 1.5 mg/dL (0.2-1.3); BLOOD UREA NITROGEN 17 mg/dL (7-20); CALCIUM 7.9 mg/dL (8.4-10.2); CARBON DIOXIDE 26 mmol/L (22-30); CHLORIDE 115 mmol/L (98-107); GLUCOSE 120 mg/dL (75-110); POTASSIUM 3.6 mmol/L (3.6-5.0); TOTAL PROTEIN 5.2 g/dL (6.3-8.2)
--- NOTE | 2018-09-27 08:25 | RADIOLOGY REPORT (SQ) ---
EXAM DESCRIPTION: CHEST SINGLE VIEW COMPLETED DATE/TIME: 09/27/2018 6:43 am REASON FOR STUDY: RESPIRATORY FAILURE PATIENT ON VENT COMPARISON: 09/26/2018. EXAM PARAMETERS: NUMBER OF VIEWS: One view. TECHNIQUE: Single frontal radiographic view of the chest acquired. RADIATION DOSE: NA LIMITATIONS: None. FINDINGS: LUNGS AND PLEURA: Scattered bilateral airspace disease. MEDIASTINUM AND HILAR STRUCTURES: No masses. Contour normal. HEART AND VASCULAR STRUCTURES: Mild cardiomegaly. BONES: No acute findings. HARDWARE: Stable endotracheal tube, nasogastric tube, and central line. Pacemaker. OTHER: No other significant finding. IMPRESSION: NO CHANGE IN APPEARANCE OF THE CHEST. TECHNICAL DOCUMENTATION: JOB ID: [id number] [employer]- All Rights Reserved Reading location - IP/workstation name: [email or web address]
[2018-09-27] MEDS: AMIODARONE HCL 200 MG TABLET NG SCH ×2 (11:10→21:10)
[2018-09-27] MEDS: HEPARIN SODIUM,PORCINE/D5W 25,000 UNIT/250 ML RTUINJ IV PRN ×2 (11:10→21:49)
[2018-09-27 14:05] LABS: ABSOLUTE BASOPHILS # (AUTO) 0.1 10^3/uL (0.0-0.2); ABSOLUTE EOSINOPHILS # (AUTO) 0.4 10^3/uL (0.0-0.6); ABSOLUTE LYMPHOCYTES (AUTO) 1.8 10^3/uL (0.5-4.7); ABSOLUTE MONOCYTES (AUTO) 1.6 10^3/uL (0.1-1.4); BASOPHILS % (AUTO) 0.4 % (0-2); LYMPHOCYTES % (AUTO) 14.2 % (13-45); MEAN CORPUSCULAR HEMOGLOBIN 27.3 pg (27.0-33.4); MEAN CORPUSCULAR HGB CONC 33.3 g/dL (32.0-36.0); MEAN CORPUSCULAR VOLUME 82 fl (80-97); MONOCYTES % (AUTO) 12.3 % (3-13); PLATELET COUNT 183 10^3/uL (150-450); RED BLOOD COUNT 3.65 10^6/uL (4.35-5.55); RED CELL DISTRIBUTION WIDTH 16.9 % (11.5-14.0); SEGMENTED NEUTROPHILS % (AUTO) 70.1 % (42-78); TOTAL CELLS COUNTED % (AUTO) 100 %; WHITE BLOOD COUNT 12.9 10^3/uL (4.0-10.5)
[2018-09-27] MEDS ORDERED: FUROSEMIDE INJ/PF 40 MG/4 ML SDV IV ONE (15:00)
[2018-09-27] MEDS ORDERED: PANTOPRAZOLE SODIUM 40 MG PACKET.DR NG SCH (16:00)
--- NOTE | 2018-09-27 16:17 | PDOC PROGRESS REPORT ---
Subjective Progress Note for:: 09/27/18 Subjective:: Intubated. Sedation decreased in preparation for extubation Reason For Visit: ACUTE KIDNEY INJURY,PAROXYSMAL ATRIAL FIBRILLATION Physical Exam Vital Signs: Temp Pulse Resp BP Pulse Ox 98.8 F 77 21 H 116/65 96 09/27/18 12:00 09/27/18 14:00 09/27/18 14:07 09/27/18 14:07 09/27/18 15:58 Intake & Output 09/26/18 09/27/18 09/28/18 06:59 06:59 06:59 Intake Total 2198 1896 403 Output Total 4130 2600 980 Balance -1932 -704 -577 Weight 133.8 kg 133.6 kg Exam: Abdomen is soft non tender. Tolerating J tube feeding Results Laboratory Results: 09/27/18 13:00 09/27/18 04:21 09/27/18 09/27/18 09/27/18 04:00 04:21 13:00 WBC 12.9 H RBC 3.65 L Hgb 10.0 L Hct 30.0 L MCV 82 MCH 27.3 MCHC 33.3 RDW 16.9 H Plt Count 183 Seg Neutrophils % 70.1 Lymphocytes % 14.2 Monocytes % 12.3 Eosinophils % 3.0 Basophils % 0.4 Absolute Neutrophils 9.0 H Absolute Lymphocytes 1.8 Absolute Monocytes 1.6 H Absolute Eosinophils 0.4 Absolute Basophils 0.1 Carbonic Acid 1.12 HCO3/H2CO3 Ratio 23:1 ABG pH 7.46 H ABG pCO2 37.3 ABG pO2 61.7 L ABG HCO3 26.0 H ABG O2 Saturation 93.0 L ABG Base Excess 2.2 FiO2 30% Sodium 148.0 H Potassium 3.6 Chloride 115 H Carbon Dioxide 26 Anion Gap 7 BUN 17 Creatinine 1.63 H Est GFR ( Amer) 52 L Est GFR (Non-Af Amer) 43 L Glucose 120 H Calcium 7.9 L Magnesium 1.9 Total Bilirubin 1.5 H AST 57 ALT 57 Alkaline Phosphatase 73 Total Protein 5.2 L Albumin 2.2 L 09/25/18 20:06 Tracheal Aspirate Gram Stain - Final 09/15/18 09/15/18 09/15/18 07:07 13:30 13:30 Creatine Kinase 261 H CK-MB (CK-2) 1.63 Troponin I 0.015 0.021 NT-Pro-B Natriuret Pep 239 09/15/18 09/15/18 09/17/18 20:35 20:35 09:48 Creatine Kinase 855 H 1250 H CK-MB (CK-2) 6.56 H Troponin I 0.022 NT-Pro-B Natriuret Pep 09/17/18 09/22/18 09/27/18 09:48 03:15 04:21 Creatine Kinase CK-MB (CK-2) 3.91 Troponin I < 0.012 0.041 NT-Pro-B Natriuret Pep 978 H Impressions: Renal Ultrasound 09/15/18 00:00 IMPRESSION: No evidence hydronephrosis. Small Bowel X-Ray 09/18/18 00:00 IMPRESSION: 1. At 3 hours, much of the contrast remains in the stomach. If clinically feasible, consider positioning patient on the right side to facilitate emptying of the stomach and better opacification of the small bowel. If this can be done, consider additional follow-up radiographs in several hours. 2. There is a small amount of contrast in several distended small bowel segments, likely small bowel obstruction. However, there is not adequate opacification to determine the transition point. KUB X-Ray 09/20/18 00:00 IMPRESSION: Stomach decompressed by nasogastric tube. Persistent gaseous distention of small bowel out of proportion to colon from small bowel obstruction Abdomen/Pelvis CT 09/23/18 00:00 IMPRESSION: Postsurgical changes of midline laparotomy. Additional mild inflammatory stranding about the right lower quadrant mesentery as well as amorphous fluid within the mid abdomen are also likely postsurgical in etiology. Otherwise, no acute abnormality within the abdomen or pelvis is identified. Bibasilar consolidation. Consider atelectasis or pneumonia to include aspiration. Hyperdensity within the gallbladder lumen either indicates vicarious excretion of previously administered contrast material or sludge/stones. TECHNICAL DOCUMENTATION: Quality ID # 436: Final reports with documentation of one or more dose reduction techniques (e.g., Automated exposure control, adjustment of the mA and/or kV according to patient size, use of iterative reconstruction technique) copyright 2011 [employer]- All Rights Reserved Chest X-Ray 09/27/18 06:00 IMPRESSION: NO CHANGE IN APPEARANCE OF THE CHEST. Assessment & Plan - Diagnosis (1) Acute gastric dilatation Is this a current diagnosis for this admission?: Yes (2) Abdominal pain Qualifiers: Abdominal location: generalized Qualified Code(s): R10.84 - Generalized abdominal pain Is this a current diagnosis for this admission?: Yes (3) Ileus Is this a current diagnosis for this admission?: Yes - Time Time Spent with patient: 15-24 minutes - Inpatient Certification Medical Necessity: Need Close Monitoring Due to Risk of Patient Decompensation, Need For IV Fluids, Need For Continuous Telemetry Monitoring - Plan Summary Plan Summary: For possible extubation Continue tube feedings
--- NOTE | 2018-09-27 17:19 | PDOC PROGRESS REPORT ---
Subjective Progress Note for:: 09/27/18 Subjective:: Patient seen by the bedside, he is on mechanical ventilation but on the weaning mode CPAP/PS Reason For Visit: ACUTE KIDNEY INJURY,PAROXYSMAL ATRIAL FIBRILLATION Physical Exam Vital Signs: Temp Pulse Resp BP Pulse Ox 100.5 F H 87 19 157/87 H 92 09/27/18 16:00 09/27/18 16:00 09/27/18 16:00 09/27/18 16:00 09/27/18 16:00 Intake & Output 09/26/18 09/27/18 09/28/18 06:59 06:59 06:59 Intake Total 2198 1896 503 Output Total 4139 6333 9080 [facility] -1932 -704 -1976 Weight 133.8 kg 133.6 kg General appearance: PRESENT: no acute distress Eye exam: PRESENT: PERRLA Respiratory exam: PRESENT: clear to auscultation martita Cardiovascular exam: PRESENT: +S1, +S2 GI/Abdominal exam: PRESENT: soft Results Laboratory Results: 09/27/18 13:00 09/27/18 04:21 09/27/18 09/27/18 09/27/18 04:00 04:21 13:00 WBC 12.9 H RBC 3.65 L Hgb 10.0 L Hct 30.0 L MCV 82 MCH 27.3 MCHC 33.3 RDW 16.9 H Plt Count 183 Seg Neutrophils % 70.1 Lymphocytes % 14.2 Monocytes % 12.3 Eosinophils % 3.0 Basophils % 0.4 Absolute Neutrophils 9.0 H Absolute Lymphocytes 1.8 Absolute Monocytes 1.6 H Absolute Eosinophils 0.4 Absolute Basophils 0.1 Carbonic Acid 1.12 HCO3/H2CO3 Ratio 23:1 ABG pH 7.46 H ABG pCO2 37.3 ABG pO2 61.7 L ABG HCO3 26.0 H ABG O2 Saturation 93.0 L ABG Base Excess 2.2 FiO2 30% Sodium 148.0 H Potassium 3.6 Chloride 115 H Carbon Dioxide 26 Anion Gap 7 BUN 17 Creatinine 1.63 H Est GFR ( Amer) 52 L Est GFR (Non-Af Amer) 43 L Glucose 120 H Calcium 7.9 L Magnesium 1.9 Total Bilirubin 1.5 H AST 57 ALT 57 Alkaline Phosphatase 73 Total Protein 5.2 L Albumin 2.2 L 09/25/18 20:06 Tracheal Aspirate Gram Stain - Final 09/15/18 09/15/18 09/15/18 07:07 13:30 13:30 Creatine Kinase 261 H CK-MB (CK-2) 1.63 Troponin I 0.015 0.021 NT-Pro-B Natriuret Pep 239 09/15/18 09/15/18 09/17/18 20:35 20:35 09:48 Creatine Kinase 855 H 1250 H CK-MB (CK-2) 6.56 H Troponin I 0.022 NT-Pro-B Natriuret Pep 09/17/18 09/22/18 09/27/18 09:48 03:15 04:21 Creatine Kinase CK-MB (CK-2) 3.91 Troponin I < 0.012 0.041 NT-Pro-B Natriuret Pep 978 H Impressions: Renal Ultrasound 09/15/18 00:00 IMPRESSION: No evidence hydronephrosis. Small Bowel X-Ray 09/18/18 00:00 IMPRESSION: 1. At 3 hours, much of the contrast remains in the stomach. If clinically feasible, consider positioning patient on the right side to facilitate emptying of the stomach and better opacification of the small bowel. If this can be done, consider additional follow-up radiographs in several hours. 2. There is a small amount of contrast in several distended small bowel segments, likely small bowel obstruction. However, there is not adequate opacification to determine the transition point. KUB X-Ray 09/20/18 00:00 IMPRESSION: Stomach decompressed by nasogastric tube. Persistent gaseous distention of small bowel out of proportion to colon from small bowel obstruction Abdomen/Pelvis CT 09/23/18 00:00 IMPRESSION: Postsurgical changes of midline laparotomy. Additional mild inflammatory stranding about the right lower quadrant mesentery as well as amorphous fluid within the mid abdomen are also likely postsurgical in etiology. Otherwise, no acute abnormality within the abdomen or pelvis is identified. Bibasilar consolidation. Consider atelectasis or pneumonia to include aspiration. Hyperdensity within the gallbladder lumen either indicates vicarious excretion of previously administered contrast material or sludge/stones. TECHNICAL DOCUMENTATION: Quality ID # 436: Final reports with documentation of one or more dose reduction techniques (e.g., Automated exposure control, adjustment of the mA and/or kV according to patient size, use of iterative reconstruction technique) copyright 2011 [employer]- All Rights Reserved Chest X-Ray 09/27/18 06:00 IMPRESSION: NO CHANGE IN APPEARANCE OF THE CHEST. Assessment & Plan - Diagnosis (1) Acute kidney injury Is this a current diagnosis for this admission?: Yes Plan: Kidney function continues to improve (2) Acute diverticulitis Is this a current diagnosis for this admission?: Yes (3) Atrial fibrillation with RVR Is this a current diagnosis for this admission?: Yes Plan: Well-controlled heart rate start metoprolol via NG tube (4) Morbid obesity due to excess calories Is this a current diagnosis for this admission?: Yes (5) Hypotension Qualifiers: Hypotension type: unspecified hypotension type Qualified Code(s): I95.9 - Hypotension, unspecified Is this a current diagnosis for this admission?: Yes Plan: Resolved (6) Small bowel obstruction Is this a current diagnosis for this admission?: Yes (7) Hypernatremia Is this a current diagnosis for this admission?: Yes (8) Respiratory failure Qualifiers: Chronicity: unspecified Respiratory failure complication: unspecified whether with hypoxia or hypercapnia Qualified Code(s): J96.90 - Respiratory failure, unspecified, unspecified whether with hypoxia or hypercapnia Is this a current diagnosis for this admission?: Yes (9) Sepsis following intra-abdominal surgery Is this a current diagnosis for this admission?: Yes (10) Deep vein thrombosis (DVT) of proximal vein of right lower extremity Qualifiers: Chronicity: acute Qualified Code(s): I82.4Y1 - Acute embolism and thrombosis of unspecified deep veins of right proximal lower extremity Is this a current diagnosis for this admission?: Yes Plan: Continue IV heparin - Plan Summary Plan Summary: Start patient's medication for schizophrenia, Abilify, the clonazepam via NG tube and hopefully extubate the next 24 hours
--- NOTE | 2018-09-27 18:44 | RADIOLOGY REPORT (SQ) ---
EXAM DESCRIPTION: CHEST SINGLE VIEW COMPLETED DATE/TIME: 09/27/2018 6:33 pm REASON FOR STUDY: pulmonary edema COMPARISON: 09/27/2018 0630 hours NUMBER OF VIEWS: One view. TECHNIQUE: Single frontal radiographic image of the chest acquired. LIMITATIONS: None. FINDINGS: ENDOTRACHEAL TUBE: Appropriate location. OTHER SUPPORT DEVICES: Right IJ central venous catheter and nasogastric catheter remain in stable pos ition. CHANGES IN RADIOGRAPHIC FINDINGS: Similar left basilar consolidation. Patchy airspace disease in the right lung base also similar. HARDWARE: Cardiac pacer. OTHER: No other significant finding. IMPRESSION: STABLE APPEARANCE OF THE CHEST. TECHNICAL DOCUMENTATION: JOB ID: [id number] [id number] 2010 [employer]- All Rights Reserved Reading location - IP/workstation name: [email or web address]
[2018-09-27] MEDS ORDERED: ACETAMINOPHEN 1,000 MG/100 ML RTUPB IV ONE (20:54)
[2018-09-27] MEDS ORDERED: ACETAMINOPHEN INJ/PF 1000 MG/100 ML SDV IV ONE (21:15)
--- NOTE | 2018-09-27 21:34 | Progress Note ---
Provider Note Provider Note: CARDIOLOGY PROGRESS NOTE by Dr. Ana Jon on 09/26/2018.
--- NOTE | 2018-09-27 21:35 | Progress Note ---
Provider Note Provider Note: CARDIOLOGY PROGRESS NOTE by Dr. Ana Jon on 09/27 2018.
[2018-09-27] MEDS: ARIPIPRAZOLE 5 MG TABLET NG SCH (21:41)
[2018-09-27] MEDS: BENZTROPINE MESYLATE 1 MG TABLET NG SCH (21:42)
[2018-09-27] MEDS: ATORVASTATIN CALCIUM 80 MG TABLET NG SCH (21:42)
[2018-09-27] MEDS: CLONAZEPAM 1 MG TABLET NG SCH (21:42)
[2018-09-27] MEDS: METOPROLOL TARTRATE 50 MG TABLET NG SCH (23:34)
[2018-09-28] MEDS: HYDROMORPHONE HCL INJ/PF 2 MG/ML AMPULE IV PRN ×7 (00:49→22:43)
[2018-09-28] MEDS: PROPOFOL 1,000 MG/100 ML INFUS..BTL IV PRN ×6 (01:55→21:41)
[2018-09-28] MEDS: MIDAZOLAM 2 MG/2 ML INJ IV PRN (04:25)
[2018-09-28 04:34] LABS: ARTERIAL BLOOD BASE EXCESS 3.7 mmol/L; ARTERIAL BLOOD H2CO3 1.23 mmol/L (1.05-1.35); ARTERIAL BLOOD HCO3 27.9 mmol/L (20-24); ARTERIAL BLOOD O2 SATURATION 94.2 % (94-98); ARTERIAL BLOOD PCO2 40.9 mmHg (35-45); ARTERIAL BLOOD PH 7.45 (7.35-7.45); ARTERIAL BLOOD PO2 67.3 mmHg (80-100); ARTERIAL BLOOD TOTAL CO2 29.2 mmol/L (23-27)
[2018-09-28 04:40] LABS: ARTERIAL BLOOD FIO2 40%
[2018-09-28] MEDS: IMIPENEM/CILASTATIN SODIUM 250 MG in NORMAL SALINE 100 ML IV SCH ×2 (05:00→18:07)
[2018-09-28 05:34] LABS: ALANINE AMINOTRANSFERASE 52 U/L (21-72); ALBUMIN 2.3 g/dL (3.5-5.0); ALKALINE PHOSPHATASE 80 U/L (38-126); ANION GAP 7 (5-19); ASPARTATE AMINO TRANSFERASE 43 U/L (17-59); BILIRUBIN,DIRECT 1.6 mg/dL (0.0-0.4); BILIRUBIN,TOTAL 1.9 mg/dL (0.2-1.3); BLOOD UREA NITROGEN 17 mg/dL (7-20); CALCIUM 8.1 mg/dL (8.4-10.2); CARBON DIOXIDE 26 mmol/L (22-30); CHLORIDE 114 mmol/L (98-107); GLUCOSE 108 mg/dL (75-110); POTASSIUM 3.7 mmol/L (3.6-5.0); SODIUM 147.3 mmol/L (137-145); TOTAL PROTEIN 5.3 g/dL (6.3-8.2)
[2018-09-28] MEDS: ACETAMINOPHEN SOLN 325 MG/10.15 ML UDCUP NG PRN ×2 (06:15→22:43)
--- NOTE | 2018-09-28 06:52 | RADIOLOGY REPORT (SQ) ---
EXAM DESCRIPTION: XR CHEST 1 VIEW COMPLETED DATE/TME: 09/28/2018 06:00 CLINICAL HISTORY: 63 years Male, RESPIRTORY FAILURE PATIENT ON VENT COMPARISON: One day prior. NUMBER OF VIEWS/TECHNIQUE: 1/AP FINDINGS: Moderate mixed interstitial and airspace opacity, central. Adequate appearing endotracheal tube. Adequate appearing enteric tube partially obscured. Right jugular [place]-Janice catheter tip at the inferior right atrium; consider 10 cm retraction of the right jugular central line. Left cardiac stimulator with leads. Normal cardiac silhouette size. No pneumothorax. Stable bony thorax. IMPRESSION: No significant change.
[2018-09-28 06:58] LABS: HEMATOCRIT 31.9 % (37.9-51.0); HEMOGLOBIN 10.4 g/dL (13.5-17.0); MEAN CORPUSCULAR HEMOGLOBIN 26.8 pg (27.0-33.4); MEAN CORPUSCULAR HGB CONC 32.7 g/dL (32.0-36.0); MEAN CORPUSCULAR VOLUME 82 fl (80-97); PLATELET COUNT 223 10^3/uL (150-450); RED BLOOD COUNT 3.89 10^6/uL (4.35-5.55); RED CELL DISTRIBUTION WIDTH 16.8 % (11.5-14.0); WHITE BLOOD COUNT 14.4 10^3/uL (4.0-10.5)
[2018-09-28 07:19] LABS: ABSOLUTE LYMPHOCYTES# (MANUAL) 2.2 10^3/uL (0.5-4.7); ABSOLUTE NEUTROPHILS# (MANUAL) 10.9 10^3/uL (1.7-8.2); BAND NEUTROPHILS % (MANUAL) 2 % (3-5); BASOPHILS % (MANUAL) 0 % (0-2); EOSINOPHILS % (MANUAL) 2 % (0-6); LYMPHOCYTES % (MANUAL) 15 % (13-45); MONOCYTES % (MANUAL) 7 % (3-13); NUCLEATED RED BLOOD CELLS 3 /100 WBC (0); SEGMENTED NEUTROPHILS % (MAN) 70 % (42-78); TOTAL CELLS COUNTED 100
[2018-09-28 07:20] LABS: PLATELET COMMENT ADEQUATE
[2018-09-28 07:22] LABS: ANISOCYTOSIS 1+; METAMYELOCYTES % (MANUAL) 1 % (0); MYELOCYTES % (MANUAL) 2 % (0); POLYCHROMASIA SLIGHT; PROMYELOCYTES % (MANUAL) 1 % (0); TARGET CELLS SLIGHT
[2018-09-28] MEDS: HEPARIN SODIUM,PORCINE/D5W 25,000 UNIT/250 ML RTUINJ IV PRN ×2 (08:01→17:52)
[2018-09-28] MEDS: PAROXETINE HCL 20 MG TABLET NG SCH (09:14)
[2018-09-28] MEDS: CYANOCOBALAMIN (VITAMIN B-12) 1,000 MCG TABLET NG SCH (09:18)
[2018-09-28] MEDS: BENZTROPINE MESYLATE 1 MG TABLET NG SCH ×2 (09:18→22:41)
[2018-09-28] MEDS: AMIODARONE HCL 200 MG TABLET NG SCH ×2 (09:23→22:42)
[2018-09-28] MEDS: METOPROLOL TARTRATE 50 MG TABLET NG SCH ×2 (09:23→22:42)
[2018-09-28] MEDS: CLONAZEPAM 1 MG TABLET NG SCH ×2 (09:24→22:42)
[2018-09-28] MEDS: PANTOPRAZOLE SODIUM 40 MG PACKET.DR NG SCH ×2 (09:25→16:35)
[2018-09-28] MEDS ORDERED: ISOSORBIDE MONONITRATE 30 MG TAB.ER.24H PO SCH (10:00)
[2018-09-28] MEDS ORDERED: TAMSULOSIN HCL 0.4 MG CAP.SR.24H PO SCH (10:00)
[2018-09-28] MEDS: MAGNESIUM OXIDE 400 MG TABLET NG SCH (10:58)
--- NOTE | 2018-09-28 13:23 | PDOC PROGRESS REPORT ---
Subjective Progress Note for:: 09/28/18 Subjective:: Patient is seen by the bedside, presently on weaning trials, the tentative plan is to extubate tomorrow morning Reason For Visit: ACUTE KIDNEY INJURY,PAROXYSMAL ATRIAL FIBRILLATION Physical Exam Vital Signs: Temp Pulse Resp BP Pulse Ox 99.5 F 64 21 H 127/68 H 100 09/28/18 12:00 09/28/18 12:00 09/28/18 12:00 09/28/18 12:00 09/28/18 12:25 Intake & Output 09/27/18 09/28/18 09/29/18 06:59 06:59 06:59 Intake Total 1896 2804 315 Output Total 2607 4645 325 [facility] -062 -1841 -10 Weight 133.6 kg 133 kg General appearance: PRESENT: no acute distress Eye exam: PRESENT: PERRLA Respiratory exam: PRESENT: symmetrical Cardiovascular exam: PRESENT: +S1 GI/Abdominal exam: PRESENT: soft Neurological exam: PRESENT: other - Sleepy but arousable easily Results Laboratory Results: 09/28/18 04:30 09/28/18 04:45 09/27/18 09/28/18 09/28/18 13:00 04:30 04:30 WBC 12.9 H 14.4 H RBC 3.65 L 3.89 L Hgb 10.0 L 10.4 L Hct 30.0 L 31.9 L MCV 82 82 MCH 27.3 26.8 L MCHC 33.3 32.7 RDW 16.9 H 16.8 H Plt Count 183 223 Seg Neutrophils % 70.1 Not Reportable Lymphocytes % 14.2 Not Reportable Monocytes % 12.3 Not Reportable Eosinophils % 3.0 Not Reportable Basophils % 0.4 Not Reportable Absolute Neutrophils 9.0 H Not Reportable Absolute Lymphocytes 1.8 Not Reportable Absolute Monocytes 1.6 H Not Reportable Absolute Eosinophils 0.4 Not Reportable Absolute Basophils 0.1 Not Reportable Carbonic Acid 1.23 HCO3/H2CO3 Ratio 22:1 ABG pH 7.45 ABG pCO2 40.9 ABG pO2 67.3 L ABG HCO3 27.9 H ABG O2 Saturation 94.2 ABG Base Excess 3.7 FiO2 40% Sodium Potassium Chloride Carbon Dioxide Anion Gap BUN Creatinine Est GFR ( Amer) Est GFR (Non-Af Amer) Glucose Calcium Magnesium Total Bilirubin AST ALT Alkaline Phosphatase Total Protein Albumin 09/28/18 04:45 WBC RBC Hgb Hct MCV MCH MCHC RDW Plt Count Seg Neutrophils % Lymphocytes % Monocytes % Eosinophils % Basophils % Absolute Neutrophils Absolute Lymphocytes Absolute Monocytes Absolute Eosinophils Absolute Basophils Carbonic Acid HCO3/H2CO3 Ratio ABG pH ABG pCO2 ABG pO2 ABG HCO3 ABG O2 Saturation ABG Base Excess FiO2 Sodium 147.3 H Potassium 3.7 Chloride 114 H Carbon Dioxide 26 Anion Gap 7 BUN 17 Creatinine 1.49 H Est GFR ( Amer) 57 L Est GFR (Non-Af Amer) 47 L Glucose 108 Calcium 8.1 L Magnesium 1.8 Total Bilirubin 1.9 H AST 43 ALT 52 Alkaline Phosphatase 80 Total Protein 5.3 L Albumin 2.3 L 09/25/18 20:06 Tracheal Aspirate Gram Stain - Final 09/25/18 20:06 Tracheal Aspirate Sputum Culture - Final C.albicans/C.dubliniensis Normal Faina Absent 09/15/18 09/15/18 09/15/18 07:07 13:30 13:30 Creatine Kinase 261 H CK-MB (CK-2) 1.63 Troponin I 0.015 0.021 NT-Pro-B Natriuret Pep 239 09/15/18 09/15/18 09/17/18 20:35 20:35 09:48 Creatine Kinase 855 H 1250 H CK-MB (CK-2) 6.56 H Troponin I 0.022 NT-Pro-B Natriuret Pep 09/17/18 09/22/18 09/27/18 09:48 03:15 04:21 Creatine Kinase CK-MB (CK-2) 3.91 Troponin I < 0.012 0.041 NT-Pro-B Natriuret Pep 978 H Impressions: Renal Ultrasound 09/15/18 00:00 IMPRESSION: No evidence hydronephrosis. Small Bowel X-Ray 09/18/18 00:00 IMPRESSION: 1. At 3 hours, much of the contrast remains in the stomach. If clinically feasible, consider positioning patient on the right side to facilitate emptying of the stomach and better opacification of the small bowel. If this can be done, consider additional follow-up radiographs in several hours. 2. There is a small amount of contrast in several distended small bowel segments, likely small bowel obstruction. However, there is not adequate opacification to determine the transition point. KUB X-Ray 09/20/18 00:00 IMPRESSION: Stomach decompressed by nasogastric tube. Persistent gaseous distention of small bowel out of proportion to colon from small bowel obstruction Abdomen/Pelvis CT 09/23/18 00:00 IMPRESSION: Postsurgical changes of midline laparotomy. Additional mild inflammatory stranding about the right lower quadrant mesentery as well as amorphous fluid within the mid abdomen are also likely postsurgical in etiology. Otherwise, no acute abnormality within the abdomen or pelvis is identified. Bibasilar consolidation. Consider atelectasis or pneumonia to include aspiration. Hyperdensity within the gallbladder lumen either indicates vicarious excretion of previously administered contrast material or sludge/stones. TECHNICAL DOCUMENTATION: Quality ID # 436: Final reports with documentation of one or more dose reduction techniques (e.g., Automated exposure control, adjustment of the mA and/or kV according to patient size, use of iterative reconstruction technique) copyright 2011 [employer]- All Rights Reserved Chest X-Ray 09/28/18 06:00 IMPRESSION: No significant change. Assessment & Plan - Diagnosis (1) Acute kidney injury Is this a current diagnosis for this admission?: Yes Plan: The kidney function continues to improve (2) Atrial fibrillation with RVR Is this a current diagnosis for this admission?: Yes (3) Morbid obesity due to excess calories Is this a current diagnosis for this admission?: Yes (4) Hypotension Qualifiers: Hypotension type: unspecified hypotension type Qualified Code(s): I95.9 - Hypotension, unspecified Is this a current diagnosis for this admission?: Yes Plan: Resolved (5) Small bowel obstruction Is this a current diagnosis for this admission?: Yes (6) Hypernatremia Is this a current diagnosis for this admission?: Yes (7) Respiratory failure Qualifiers: Chronicity: unspecified Respiratory failure complication: unspecified whether with hypoxia or hypercapnia Qualified Code(s): J96.90 - Respiratory failure, unspecified, unspecified whether with hypoxia or hypercapnia Is this a current diagnosis for this admission?: Yes (8) Sepsis following intra-abdominal surgery Is this a current diagnosis for this admission?: Yes (9) Deep vein thrombosis (DVT) of proximal vein of right lower extremity Qualifiers: Chronicity: acute Qualified Code(s): I82.4Y1 - Acute embolism and thrombosis of unspecified deep veins of right proximal lower extremity Is this a current diagnosis for this admission?: Yes (10) Ileitis, terminal Qualifiers: Digestive disease complication type: with abscess Qualified Code(s): K50.014 - Crohn's disease of small intestine with abscess Is this a current diagnosis for this admission?: Yes (11) Ulcer of ileum Is this a current diagnosis for this admission?: Yes - Plan Summary Plan Summary: Start regular home medication,
[2018-09-28] MEDS: NORMAL SALINE 1000 ML 1,000 ML IV PRN (14:48)
[2018-09-28] MEDS: FUROSEMIDE 40 MG TABLET PO SCH (16:39)
--- NOTE | 2018-09-28 20:36 | PDOC PROGRESS REPORT ---
Subjective Progress Note for:: 09/28/18 Subjective:: Still intubated and plan to have extubation in am Tolerating J tube feedings Reason For Visit: ACUTE KIDNEY INJURY,PAROXYSMAL ATRIAL FIBRILLATION Physical Exam Vital Signs: Temp Pulse Resp BP Pulse Ox 100.7 F H 65 12 100/58 L 96 09/28/18 20:00 09/28/18 18:00 09/28/18 18:00 09/28/18 18:00 09/28/18 18:00 Intake & Output 09/27/18 09/28/18 09/29/18 06:59 06:59 06:59 Intake Total 1896 2804 1215 Output Total 9169 0528 7990 Balance -168 -7435 -113 Weight 133.6 kg 133 kg Exam: abd is soft flat and non tender Results Laboratory Results: 09/28/18 04:30 09/28/18 04:45 09/28/18 09/28/18 09/28/18 04:30 04:30 04:45 WBC 14.4 H RBC 3.89 L Hgb 10.4 L Hct 31.9 L MCV 82 MCH 26.8 L MCHC 32.7 RDW 16.8 H Plt Count 223 Seg Neutrophils % Not Reportable Lymphocytes % Not Reportable Monocytes % Not Reportable Eosinophils % Not Reportable Basophils % Not Reportable Absolute Neutrophils Not Reportable Absolute Lymphocytes Not Reportable Absolute Monocytes Not Reportable Absolute Eosinophils Not Reportable Absolute Basophils Not Reportable Carbonic Acid 1.23 HCO3/H2CO3 Ratio 22:1 ABG pH 7.45 ABG pCO2 40.9 ABG pO2 67.3 L ABG HCO3 27.9 H ABG O2 Saturation 94.2 ABG Base Excess 3.7 FiO2 40% Sodium 147.3 H Potassium 3.7 Chloride 114 H Carbon Dioxide 26 Anion Gap 7 BUN 17 Creatinine 1.49 H Est GFR ( Amer) 57 L Est GFR (Non-Af Amer) 47 L Glucose 108 Calcium 8.1 L Magnesium 1.8 Total Bilirubin 1.9 H AST 43 ALT 52 Alkaline Phosphatase 80 Total Protein 5.3 L Albumin 2.3 L 09/25/18 20:06 Tracheal Aspirate Gram Stain - Final 09/25/18 20:06 Tracheal Aspirate Sputum Culture - Final C.albicans/C.dubliniensis Normal Faina Absent 09/15/18 09/15/18 09/15/18 07:07 13:30 13:30 Creatine Kinase 261 H CK-MB (CK-2) 1.63 Troponin I 0.015 0.021 NT-Pro-B Natriuret Pep 239 09/15/18 09/15/18 09/17/18 20:35 20:35 09:48 Creatine Kinase 855 H 1250 H CK-MB (CK-2) 6.56 H Troponin I 0.022 NT-Pro-B Natriuret Pep 09/17/18 09/22/18 09/27/18 09:48 03:15 04:21 Creatine Kinase CK-MB (CK-2) 3.91 Troponin I < 0.012 0.041 NT-Pro-B Natriuret Pep 978 H Impressions: Renal Ultrasound 09/15/18 00:00 IMPRESSION: No evidence hydronephrosis. Small Bowel X-Ray 09/18/18 00:00 IMPRESSION: 1. At 3 hours, much of the contrast remains in the stomach. If clinically feasible, consider positioning patient on the right side to facilitate emptying of the stomach and better opacification of the small bowel. If this can be done, consider additional follow-up radiographs in several hours. 2. There is a small amount of contrast in several distended small bowel segments, likely small bowel obstruction. However, there is not adequate opacification to determine the transition point. KUB X-Ray 09/20/18 00:00 IMPRESSION: Stomach decompressed by nasogastric tube. Persistent gaseous distention of small bowel out of proportion to colon from small bowel obstruction Abdomen/Pelvis CT 09/23/18 00:00 IMPRESSION: Postsurgical changes of midline laparotomy. Additional mild inflammatory stranding about the right lower quadrant mesentery as well as amorphous fluid within the mid abdomen are also likely postsurgical in etiology. Otherwise, no acute abnormality within the abdomen or pelvis is identified. Bibasilar consolidation. Consider atelectasis or pneumonia to include aspiration. Hyperdensity within the gallbladder lumen either indicates vicarious excretion of previously administered contrast material or sludge/stones. TECHNICAL DOCUMENTATION: Quality ID # 436: Final reports with documentation of one or more dose reduction techniques (e.g., Automated exposure control, adjustment of the mA and/or kV according to patient size, use of iterative reconstruction technique) copyright 2011 [employer]- All Rights Reserved Chest X-Ray 09/28/18 06:00 IMPRESSION: No significant change. Assessment & Plan - Diagnosis (1) Acute gastric dilatation Is this a current diagnosis for this admission?: Yes (2) Abdominal pain Qualifiers: Abdominal location: generalized Qualified Code(s): R10.84 - Generalized abdominal pain Is this a current diagnosis for this admission?: Yes (3) Ileus Is this a current diagnosis for this admission?: Yes - Time Time Spent with patient: 15-24 minutes - Plan Summary Plan Summary: Possible extubation tomorrow Continue J tube feedings
[2018-09-28] MEDS: ATORVASTATIN CALCIUM 80 MG TABLET NG SCH (22:40)
[2018-09-28] MEDS: ARIPIPRAZOLE 5 MG TABLET NG SCH (22:42)
--- NOTE | 2018-09-28 23:24 | Progress Note ---
Provider Note Provider Note: CARDIOLOGY PROGRESS NOTE by Dr. Ana Dawn on 09/28/2018. SUBJECTIVE: The patient remains in sinus rhythm on amiodarone 400 mg p.o. every 12 hours by the NG tube. There is no ventricular arrhythmia seen. The patient still has hypoxia on 40% FiO2. The patient still intubated and sedated. Physical EXAMINATION: The patient is morbidly obese. He is not fighting the ventilator. Selected Entries 09/28/18 16:00 Temperature 99.1 F Temperature Axillary Source Pulse Rate 72 Respiratory 25 H Rate Blood Pressure 127/70 H [Left Upper Arm ] Blood Pressure 89 Mean [Left Upper Arm] Blood Pressure Supine Position [Left Upper Arm] Blood Pressure 127 Systolic [Left Upper Arm] O2 Sat by Pulse 98 Oximetry Oxygen Delivery Mechanical Method ( Ventilator includes room air) Percent of 45 Oxygen HEAD: Is atraumatic normocephalic. EYES: Pupils are equal round regular reactive light accommodation. Extraocular movements are normal. There is no conjunctival pallor. There is no scleral icterus. EARS: Tympanic memories are intact. External auditory canals are clear. NOSE: There is no deviated nasal septum. There is no inflammation of the nasal mucous membrane. MOUTH: Mucous membranes of mouth are moist. Tongue is moist. There is no ulcers there is no bleeding from the gums. Throat: There is no redness of the oropharynx. There is no exudates. SKIN: There is no skin rashes or skin lesions. There is no petechia or ecchymosis. NECK: Supple. There is no JVD. Carotids are equal there is no bruit. There is no accessory muscles of respiration use. Trachea central. LUNGS: There is diminished air entry prolonged expiration. There is a few scattered rhonchi. There is no wheezing or rales. On percussion there is hyperresonance. On palpation there is no chest wall tenderness. HEART: S1-S2 is heard S1 is of normal intensity. There is no S3 gallop there is no S4 gallop. There is systolic murmur left sternal border and the apex there is no rub. ABDOMEN: Is soft. The dressing is dry and clean. There is no hepatosplenomegaly. Bowel sounds are absent. EXTREMITIES: Femorals are diminished there is no femoral bruits. Leg pulses are diminished. There is no pedal edema, and no evidence of DVT.. ALGEBRAIST and PSYCHIATRIC exam not performed, since the patient is intubated and sedated. 09/28/18 09/28/18 09/28/18 04:30 04:30 04:45 WBC 14.4 H RBC 3.89 L Hgb 10.4 L Hct 31.9 L MCV 82 MCH 26.8 L MCHC 32.7 RDW 16.8 H Plt Count 223 Total Counted 100 Seg Neutrophils % Not Reportable Seg Neuts % (Manual) 70 APTT Carbonic Acid 1.23 HCO3/H2CO3 Ratio 22:1 ABG pH 7.45 ABG pCO2 40.9 ABG pO2 67.3 L ABG HCO3 27.9 H ABG Total CO2 29.2 H ABG O2 Saturation 94.2 ABG Base Excess 3.7 FiO2 40% Sodium 147.3 H Potassium 3.7 Chloride 114 H Carbon Dioxide 26 Anion Gap 7 BUN 17 Creatinine 1.49 H Est GFR ( Amer) 57 L Glucose 108 Calcium 8.1 L Magnesium 1.8 Total Bilirubin 1.9 H Direct Bilirubin 1.6 H Neonat Total Bilirubin Not Reportable Neonat Direct Bilirubin Not Reportable Neonat Indirect Bili Not Reportable AST 43 ALT 52 Alkaline Phosphatase 80 Total Protein 5.3 L Albumin 2.3 L 09/28/18 04:45 WBC RBC Hgb Hct MCV MCH MCHC RDW Plt Count Total Counted Seg Neutrophils % Seg Neuts % (Manual) APTT 81.9 H Carbonic Acid HCO3/H2CO3 Ratio ABG pH ABG pCO2 ABG pO2 ABG HCO3 ABG Total CO2 ABG O2 Saturation ABG Base Excess FiO2 Sodium Potassium Chloride Carbon Dioxide Anion Gap BUN Creatinine Est GFR ( Amer) Glucose Calcium Magnesium Total Bilirubin Direct Bilirubin Neonat Total Bilirubin Neonat Direct Bilirubin Neonat Indirect Bili AST ALT Alkaline Phosphatase Total Protein Albumin The patient's 24-hour intake is 2804 mL. Output is 4645 mL. Impression/Recommendation:. 1. . Acute respiratory failure hypoxemic: Continue to ventilator support and continue oxygen and respiratory treatments. 2. Status post acute abdomen, status post laparotomy and ileectomy for small bowel obstruction. Continue IV fluids continue antibiotics. At present patient on ventilator continue ventilator support. The patient still not amenable. 2. Paroxysmal atrial fibrillation. Continue amiodarone by the NG tube. Will decrease the dose to 200 mg via NG tube every 12 hours. The patient's liver function tests are normal. We will check the patient's thyroid function test. 3. Lower extremity DVT: Patient is on IV heparin. Consider switching to oral anticoagulant . 4. Acute renal failure/injury: Nephrology on the case. This is improved the patient's GFR now is 57 mL which is chronic kidney disease stage III. 5. Hypertension: Blood pressure stable. Earlier the patient was hypotensive with systolic pressure of blood pressure in the 90s requiring emergent cardioversion of the atrial fibrillation with rapid ventricular response. Subsequently the patient blood pressure now is stable. 6. Coronary artery disease: Patient stable with no anginal symptoms, in spite of the patient having atrial fibrillation with rapid ventricular response. Also the patient has no evidence of non-ST elevation [place], so far. Recheck EKG and troponin I in the morning. 7. History of asthma/COPD: Continue anti-COPD treatment. At present no signs of acute exacerbation of COPD. This seems to have resolved back to baseline. 8. Obstructive sleep apnea: Continue BiPAP instructed patient the importance of using BiPAP. 9. Cardiomyopathy: No evidence of heart failure. Note his last LV ejection fraction was within normal limits. 10. AICD placement: No firing of AICD. Note that the AICD was interrogated and data sent remotely to the [employer]. The pacemaker function is normal. There is been no recent AICD shocks. 11. History of depression schizoaffective disorder and posttraumatic stress disorder. 12. Morbid obesity Medications reviewed. Medications doses adjusted. Labs ordered. Management plan discussed with attending physician Dr. Norris, covering Dr. Ayala. Medical decision making is still of high complexity. 40 minutes spent on this patient with more than 50% time spent in direct patient care. Will follow
[2018-09-28] MEDS ORDERED: AMIODARONE HCL 200 MG TABLET NG ONE (23:30)
[2018-09-29] MEDS: PROPOFOL 1,000 MG/100 ML INFUS..BTL IV PRN ×2 (00:37→03:28)
[2018-09-29] MEDS: HYDROMORPHONE HCL INJ/PF 2 MG/ML AMPULE IV PRN ×7 (04:11→21:44)
[2018-09-29] MEDS: HEPARIN SODIUM,PORCINE/D5W 25,000 UNIT/250 ML RTUINJ IV PRN ×2 (04:11→14:22)
[2018-09-29 04:43] LABS: ARTERIAL BLOOD BASE EXCESS 3.1 mmol/L; ARTERIAL BLOOD FIO2 45%; ARTERIAL BLOOD H2CO3 1.35 mmol/L (1.05-1.35); ARTERIAL BLOOD HCO3 28.1 mmol/L (20-24); ARTERIAL BLOOD O2 SATURATION 95.5 % (94-98); ARTERIAL BLOOD PCO2 44.7 mmHg (35-45); ARTERIAL BLOOD PH 7.42 (7.35-7.45); ARTERIAL BLOOD PO2 77.2 mmHg (80-100); ARTERIAL BLOOD TOTAL CO2 29.5 mmol/L (23-27); HEMATOCRIT 31.8 % (37.9-51.0); HEMOGLOBIN 10.7 g/dL (13.5-17.0); MEAN CORPUSCULAR HEMOGLOBIN 27.3 pg (27.0-33.4); MEAN CORPUSCULAR HGB CONC 33.5 g/dL (32.0-36.0); MEAN CORPUSCULAR VOLUME 81 fl (80-97); PLATELET COUNT 268 10^3/uL (150-450); RED BLOOD COUNT 3.91 10^6/uL (4.35-5.55); RED CELL DISTRIBUTION WIDTH 16.3 % (11.5-14.0); WHITE BLOOD COUNT 14.1 10^3/uL (4.0-10.5)
[2018-09-29 04:45] LABS: APPEARANCE,URINE SLIGHTLY-CLOUDY; BILIRUBIN,URINE NEGATIVE (NEGATIVE); COLOR,URINE YELLOW; GLUCOSE, URINE NEGATIVE (NEGATIVE); KETONES,URINE NEGATIVE (NEGATIVE); LEUKOCYTE ESTERASE,URINE NEGATIVE (NEGATIVE); NITRITE,URINE NEGATIVE (NEGATIVE); PROTEIN,URINE NEGATIVE (NEGATIVE); URINE SPECIFIC GRAVITY 1.013
[2018-09-29 05:01] LABS: ALBUMIN 2.4 g/dL (3.5-5.0); ANION GAP 6 (5-19); CARBON DIOXIDE 30 mmol/L (22-30); CHLORIDE 111 mmol/L (98-107); GLUCOSE 105 mg/dL (75-110); POTASSIUM 3.4 mmol/L (3.6-5.0); SODIUM 146.6 mmol/L (137-145); TOTAL PROTEIN 6.1 g/dL (6.3-8.2)
[2018-09-29 05:02] LABS: ALANINE AMINOTRANSFERASE 41 U/L (21-72); ALKALINE PHOSPHATASE 81 U/L (38-126); ASPARTATE AMINO TRANSFERASE 36 U/L (17-59); BILIRUBIN,DIRECT 1.5 mg/dL (0.0-0.4); BILIRUBIN,TOTAL 1.8 mg/dL (0.2-1.3); BLOOD UREA NITROGEN 17 mg/dL (7-20); CALCIUM 8.4 mg/dL (8.4-10.2)
[2018-09-29 05:18] LABS: FREE T3 3.35 pg/mL (2.77-5.27); FREE T4 (FREE THYROXINE) 2.54 ng/dL (0.78-2.19)
[2018-09-29 05:31] LABS: THYROID STIMULATING HORMONE 6.52 uIU/mL (0.47-4.68)
[2018-09-29] MEDS: ACETAMINOPHEN SOLN 325 MG/10.15 ML UDCUP NG PRN (05:43)
[2018-09-29] MEDS: IMIPENEM/CILASTATIN SODIUM 250 MG in NORMAL SALINE 100 ML IV SCH ×2 (05:43→17:30)
[2018-09-29] MEDS ORDERED: POTASSI CL 20 MEQ/50 ML RIDER 20 MEQ/50 ML RTUPB IV ONE (06:05)
[2018-09-29] MEDS: POTASSIUM CHLORIDE 20 MEQ/50 ML RTU IV SCH ×2 (06:10→08:05)
--- NOTE | 2018-09-29 07:07 | RADIOLOGY REPORT (SQ) ---
EXAM DESCRIPTION: XR CHEST 1 VIEW COMPLETED DATE/TME: 09/29/2018 06:00 CLINICAL HISTORY: 63 years Male, RESPIRTORY FAILURE PATIENT ON VENT COMPARISON: One day prior. NUMBER OF VIEWS/TECHNIQUE: 1/AP FINDINGS: Mild mixed interstitial and airspace opacity, central-lower.Adequate appearing endotracheal tube. Adequate appearing enteric tube with tip at the left upper abdominal quadrant. Adequate appearing right jugular central line. Left cardiac stimulator with leads. Normal cardiac silhouette size. No pneumothorax. Stable bony thorax. IMPRESSION: No significant change.
[2018-09-29] MEDS ORDERED: GUAIFENESIN SYRP 200 MG/10 ML UDC PO ONE (08:00)
[2018-09-29] MEDS: FUROSEMIDE 40 MG TABLET PO SCH (08:03)
[2018-09-29] MEDS: PANTOPRAZOLE SODIUM 40 MG PACKET.DR NG SCH ×2 (08:03→15:46)
[2018-09-29] MEDS: METOPROLOL TARTRATE 50 MG TABLET NG SCH ×2 (09:26→21:43)
[2018-09-29] MEDS: MAGNESIUM OXIDE 400 MG TABLET NG SCH (09:26)
[2018-09-29] MEDS: CLONAZEPAM 1 MG TABLET NG SCH ×2 (09:26→21:43)
[2018-09-29] MEDS: CYANOCOBALAMIN (VITAMIN B-12) 1,000 MCG TABLET NG SCH (09:26)
[2018-09-29] MEDS: AMIODARONE HCL 200 MG TABLET NG SCH ×2 (09:26→21:43)
[2018-09-29] MEDS: BENZTROPINE MESYLATE 1 MG TABLET NG SCH ×2 (09:26→21:43)
[2018-09-29] MEDS: NORMAL SALINE 1000 ML 1,000 ML IV PRN (09:26)
[2018-09-29] MEDS: PAROXETINE HCL 20 MG TABLET NG SCH (09:27)
--- NOTE | 2018-09-29 10:05 | PDOC PROGRESS REPORT ---
Subjective Subjective:: Patient intubated; sedated; anticipate extubation later today; tube feeds on hold. Reason For Visit: ACUTE KIDNEY INJURY,PAROXYSMAL ATRIAL FIBRILLATION Physical Exam Vital Signs: Temp Pulse Resp BP Pulse Ox 99.7 F 74 18 134/81 H 96 09/29/18 08:00 09/29/18 08:58 09/29/18 10:00 09/29/18 09:56 09/29/18 10:00 Intake & Output 09/28/18 09/29/18 09/30/18 06:59 06:59 06:59 Intake Total 2804 2445 724 Output Total 4645 3540 200 Balance -1841 -1095 524 Weight 133 kg 132.4 kg General appearance: PRESENT: other - Sedated intubated GI/Abdominal exam: PRESENT: other - Midline dressing replaced; lupe intact; no drainage appreciated Serosanguineous drainage from left lower quadrant drain site. Results Laboratory Results: 09/29/18 04:30 09/29/18 04:30 09/29/18 09/29/18 09/29/18 04:30 04:30 04:30 WBC 14.1 H RBC 3.91 L Hgb 10.7 L Hct 31.8 L MCV 81 MCH 27.3 MCHC 33.5 RDW 16.3 H Plt Count 268 Carbonic Acid 1.35 HCO3/H2CO3 Ratio 20:1 ABG pH 7.42 ABG pCO2 44.7 ABG pO2 77.2 L ABG HCO3 28.1 H ABG O2 Saturation 95.5 ABG Base Excess 3.1 FiO2 45% Sodium Potassium Chloride Carbon Dioxide Anion Gap BUN Creatinine Est GFR ( Amer) Est GFR (Non-Af Amer) Glucose Calcium Magnesium Total Bilirubin AST ALT Alkaline Phosphatase Total Protein Albumin TSH 6.52 H Free T4 2.54 H Free T3 pg/mL 3.35 Urine Color Urine Appearance Urine pH Ur Specific [place] Urine Protein Urine Glucose (UA) Urine Ketones Urine Blood Urine Nitrite Ur Leukocyte Esterase Urine WBC (Auto) Urine RBC (Auto) 09/29/18 09/29/18 04:30 04:30 WBC RBC Hgb Hct MCV MCH MCHC RDW Plt Count Carbonic Acid HCO3/H2CO3 Ratio ABG pH ABG pCO2 ABG pO2 ABG HCO3 ABG O2 Saturation ABG Base Excess FiO2 Sodium 146.6 H Potassium 3.4 L Chloride 111 H Carbon Dioxide 30 Anion Gap 6 BUN 17 Creatinine 1.41 H Est GFR ( Amer) > 60 Est GFR (Non-Af Amer) 51 L Glucose 105 Calcium 8.4 Magnesium 1.8 Total Bilirubin 1.8 H AST 36 ALT 41 Alkaline Phosphatase 81 Total Protein 6.1 L Albumin 2.4 L TSH Free T4 Free T3 pg/mL Urine Color YELLOW Urine Appearance SLIGHTLY-CLOUDY Urine pH 5.0 Ur Specific [place] 1.013 Urine Protein NEGATIVE Urine Glucose (UA) NEGATIVE Urine Ketones NEGATIVE Urine Blood MODERATE H Urine Nitrite NEGATIVE Ur Leukocyte Esterase NEGATIVE Urine WBC (Auto) 6 Urine RBC (Auto) 68 09/26/18 20:30 Tracheal Aspirate Gram Stain - Final 09/26/18 20:30 Tracheal Aspirate Sputum Culture - Final NO GROWTH 3 DAYS 09/24/18 05:48 Blood Blood Culture - Final NO GROWTH IN 5 DAYS 09/24/18 00:25 Blood Blood Culture - Final NO GROWTH IN 5 DAYS 09/15/18 09/15/18 09/15/18 07:07 13:30 13:30 Creatine Kinase 261 H CK-MB (CK-2) 1.63 Troponin I 0.015 0.021 NT-Pro-B Natriuret Pep 239 09/15/18 09/15/18 09/17/18 20:35 20:35 09:48 Creatine Kinase 855 H 1250 H CK-MB (CK-2) 6.56 H Troponin I 0.022 NT-Pro-B Natriuret Pep 09/17/18 09/22/18 09/27/18 09:48 03:15 04:21 Creatine Kinase CK-MB (CK-2) 3.91 Troponin I < 0.012 0.041 NT-Pro-B Natriuret Pep 978 H Impressions: Renal Ultrasound 09/15/18 00:00 IMPRESSION: No evidence hydronephrosis. Small Bowel X-Ray 09/18/18 00:00 IMPRESSION: 1. At 3 hours, much of the contrast remains in the stomach. If clinically feasible, consider positioning patient on the right side to facilitate emptying of the stomach and better opacification of the small bowel. If this can be done, consider additional follow-up radiographs in several hours. 2. There is a small amount of contrast in several distended small bowel segments, likely small bowel obstruction. However, there is not adequate opacification to determine the transition point. KUB X-Ray 09/20/18 00:00 IMPRESSION: Stomach decompressed by nasogastric tube. Persistent gaseous distention of small bowel out of proportion to colon from small bowel obstruction Abdomen/Pelvis CT 09/23/18 00:00 IMPRESSION: Postsurgical changes of midline laparotomy. Additional mild inflammatory stranding about the right lower quadrant mesentery as well as amorphous fluid within the mid abdomen are also likely postsurgical in etiology. Otherwise, no acute abnormality within the abdomen or pelvis is identified. Bibasilar consolidation. Consider atelectasis or pneumonia to include aspiration. Hyperdensity within the gallbladder lumen either indicates vicarious excretion of previously administered contrast material or sludge/stones. TECHNICAL DOCUMENTATION: Quality ID # 436: Final reports with documentation of one or more dose reduction techniques (e.g., Automated exposure control, adjustment of the mA and/or kV according to patient size, use of iterative reconstruction technique) copyright 2011 [employer]- All Rights Reserved Chest X-Ray 09/29/18 06:00 IMPRESSION: No significant change. Assessment & Plan - Diagnosis (1) Status post small bowel resection Is this a current diagnosis for this admission?: Yes Plan: Impression: Patient now 9 days status post disorder laparotomy, ileocecectomy infectious, nonmalignant process; overall clinically improved, anticipate extub ation today Plan: 1. Extubate today 2. Anticipate removal of left lower quadrant drain. 3. Resume tube feedings when appropriate.
[2018-09-29 12:41] LABS: ANION GAP 6 (5-19); BLOOD UREA NITROGEN 17 mg/dL (7-20); CALCIUM 8.3 mg/dL (8.4-10.2); CARBON DIOXIDE 29 mmol/L (22-30); CHLORIDE 111 mmol/L (98-107); GLUCOSE 119 mg/dL (75-110); POTASSIUM 3.7 mmol/L (3.6-5.0); SODIUM 146.4 mmol/L (137-145)
[2018-09-29 13:09] LABS: ARTERIAL BLOOD BASE EXCESS 4.2 mmol/L; ARTERIAL BLOOD FIO2 40%; ARTERIAL BLOOD H2CO3 1.39 mmol/L (1.05-1.35); ARTERIAL BLOOD HCO3 29.3 mmol/L (20-24); ARTERIAL BLOOD O2 SATURATION 97.4 % (94-98); ARTERIAL BLOOD PCO2 46.3 mmHg (35-45); ARTERIAL BLOOD PH 7.42 (7.35-7.45); ARTERIAL BLOOD PO2 96.3 mmHg (80-100); ARTERIAL BLOOD TOTAL CO2 30.7 mmol/L (23-27)
[2018-09-29 13:11] LABS: PATH REVIEW PATHOLOGIST REVIEWED
--- NOTE | 2018-09-29 15:56 | PDOC PROGRESS REPORT ---
Subjective Progress Note for:: 09/29/18 - ] Subjective:: Patient just got extubated this morning. He has some response but he does not open his eyes and does not verbalize anything yet. He is doing well on the BiPAP. He continues to produce an excellent amount of urine output without any gross hematuria. He makes at least 3 to 4 L of urine output daily. Reason For Visit: ACUTE KIDNEY INJURY,PAROXYSMAL ATRIAL FIBRILLATION Physical Exam Vital Signs: Temp Pulse Resp BP Pulse Ox 100.9 F H 68 18 121/94 H 96 09/29/18 12:00 09/29/18 14:00 09/29/18 14:00 09/29/18 14:00 09/29/18 14:00 Intake & Output 09/28/18 09/29/18 09/30/18 06:59 06:59 06:59 Intake Total 2804 2445 1021 Output Total 4681 3540 2075 Balance -1841 -1095 -1054 Weight 133 kg 132.4 kg Exam: General appearance: PRESENT: Currently on BiPAP Head exam: PRESENT: atraumatic, normocephalic Eye exam: He keeps his eyes closed even when prompted to open his eyes. Neck exam: ABSENT: JVD Respiratory exam: PRESENT: Diminished breath sounds. ABSENT: crackles, rales, rhonchi, unlabored, wheezes Cardiovascular exam: PRESENT: Regular rate rhythm -+S1, +S2. ABSENT: diastolic murmur, systolic murmur GI/Abdominal exam: PRESENT: Hypoactive bowel sounds, soft. ABSENT: guarding, mass, tenderness Extremities exam: Grade 2 right lower extremity PT and edema up to the thighs Neurological exam: [PRESENT: Awake and follows very limited commands Skin: Dry, warm no rashes Cardiovascular exam: PRESENT: +S1, +S2 GI/Abdominal exam: PRESENT: distended, soft. ABSENT: normal bowel sounds, organomegaly, tenderness Results Laboratory Results: 09/29/18 04:30 09/29/18 12:08 09/29/18 09/29/18 09/29/18 04:30 04:30 04:30 WBC 14.1 H RBC 3.91 L Hgb 10.7 L Hct 31.8 L MCV 81 MCH 27.3 MCHC 33.5 RDW 16.3 H Plt Count 268 Carbonic Acid 1.35 HCO3/H2CO3 Ratio 20:1 ABG pH 7.42 ABG pCO2 44.7 ABG pO2 77.2 L ABG HCO3 28.1 H ABG O2 Saturation 95.5 ABG Base Excess 3.1 FiO2 45% Sodium Potassium Chloride Carbon Dioxide Anion Gap BUN Creatinine Est GFR ( Amer) Est GFR (Non-Af Amer) Glucose Calcium Magnesium Total Bilirubin AST ALT Alkaline Phosphatase Total Protein Albumin TSH 6.52 H Free T4 2.54 H Free T3 pg/mL 3.35 Urine Color Urine Appearance Urine pH Ur Specific [place] Urine Protein Urine Glucose (UA) Urine Ketones Urine Blood Urine Nitrite Ur Leukocyte Esterase Urine WBC (Auto) Urine RBC (Auto) 09/29/18 09/29/18 09/29/18 04:30 04:30 12:08 WBC RBC Hgb Hct MCV MCH MCHC RDW Plt Count Carbonic Acid HCO3/H2CO3 Ratio ABG pH ABG pCO2 ABG pO2 ABG HCO3 ABG O2 Saturation ABG Base Excess FiO2 Sodium 146.6 H 146.4 H Potassium 3.4 L 3.7 Chloride 111 H 111 H Carbon Dioxide 30 29 Anion Gap 6 6 BUN 17 17 Creatinine 1.41 H 1.37 H Est GFR ( Amer) > 60 > 60 Est GFR (Non-Af Amer) 51 L 52 L Glucose 105 119 H Calcium 8.4 8.3 L Magnesium 1.8 Total Bilirubin 1.8 H AST 36 ALT 41 Alkaline Phosphatase 81 Total Protein 6.1 L Albumin 2.4 L TSH Free T4 Free T3 pg/mL Urine Color YELLOW Urine Appearance SLIGHTLY-CLOUDY Urine pH 5.0 Ur Specific [place] 1.013 Urine Protein NEGATIVE Urine Glucose (UA) NEGATIVE Urine Ketones NEGATIVE Urine Blood MODERATE H Urine Nitrite NEGATIVE Ur Leukocyte Esterase NEGATIVE Urine WBC (Auto) 6 Urine RBC (Auto) 68 09/29/18 13:00 WBC RBC Hgb Hct MCV MCH MCHC RDW Plt Count Carbonic Acid 1.39 H HCO3/H2CO3 Ratio 21:1 ABG pH 7.42 ABG pCO2 46.3 H ABG pO2 96.3 ABG HCO3 29.3 H ABG O2 Saturation 97.4 ABG Base Excess 4.2 FiO2 40% Sodium Potassium Chloride Carbon Dioxide Anion Gap BUN Creatinine Est GFR ( Amer) Est GFR (Non-Af Amer) Glucose Calcium Magnesium Total Bilirubin AST ALT Alkaline Phosphatase Total Protein Albumin TSH Free T4 Free T3 pg/mL Urine Color Urine Appearance Urine pH Ur Specific [place] Urine Protein Urine Glucose (UA) Urine Ketones Urine Blood Urine Nitrite Ur Leukocyte Esterase Urine WBC (Auto) Urine RBC (Auto) 09/26/18 20:30 Tracheal Aspirate Gram Stain - Final 09/26/18 20:30 Tracheal Aspirate Sputum Culture - Final NO GROWTH 3 DAYS 09/24/18 05:48 Blood Blood Culture - Final NO GROWTH IN 5 DAYS 09/24/18 00:25 Blood Blood Culture - Final NO GROWTH IN 5 DAYS 09/15/18 09/15/18 09/15/18 07:07 13:30 13:30 Creatine Kinase 261 H CK-MB (CK-2) 1.63 Troponin I 0.015 0.021 NT-Pro-B Natriuret Pep 239 09/15/18 09/15/18 09/17/18 20:35 20:35 09:48 Creatine Kinase 855 H 1250 H CK-MB (CK-2) 6.56 H Troponin I 0.022 NT-Pro-B Natriuret Pep 09/17/18 09/22/18 09/27/18 09:48 03:15 04:21 Creatine Kinase CK-MB (CK-2) 3.91 Troponin I < 0.012 0.041 NT-Pro-B Natriuret Pep 978 H Impressions: Renal Ultrasound 09/15/18 00:00 IMPRESSION: No evidence hydronephrosis. Small Bowel X-Ray 09/18/18 00:00 IMPRESSION: 1. At 3 hours, much of the contrast remains in the stomach. If clinically feasible, consider positioning patient on the right side to facilitate emptying of the stomach and better opacification of the small bowel. If this can be done, consider additional follow-up radiographs in several hours. 2. There is a small amount of contrast in several distended small bowel segments, likely small bowel obstruction. However, there is not adequate opacification to determine the transition point. KUB X-Ray 09/20/18 00:00 IMPRESSION: Stomach decompressed by nasogastric tube. Persistent gaseous distention of small bowel out of proportion to colon from small bowel obstruction Abdomen/Pelvis CT 09/23/18 00:00 IMPRESSION: Postsurgical changes of midline laparotomy. Additional mild inflammatory stranding about the right lower quadrant mesentery as well as amorphous fluid within the mid abdomen are also likely postsurgical in etiology. Otherwise, no acute abnormality within the abdomen or pelvis is identified. Bibasilar consolidation. Consider atelectasis or pneumonia to include aspiration. Hyperdensity within the gallbladder lumen either indicates vicarious excretion of previously administered contrast material or sludge/stones. TECHNICAL DOCUMENTATION: Quality ID # 436: Final reports with documentation of one or more dose reduction techniques (e.g., Automated exposure control, adjustment of the mA and/or kV according to patient size, use of iterative reconstruction technique) copyright 2011 [employer]- All Rights Reserved Chest X-Ray 09/29/18 06:00 IMPRESSION: No significant change. Assessment & Plan - Diagnosis (1) Acute kidney injury Is this a current diagnosis for this admission?: Yes Plan: Likely initially due to prerenal azotemia which could have progressed to acute tubular necrosis with acute onset of atrial fibrillation and rapid ventricular response requiring acute cardioversion. This is complicated by small bowel obstruction requiring surgery. Patient is currently nonoliguric and has excellent urine output. His kidney function continues to improve. No further intervention from nephrology standpoint. (2) Atrial fibrillation Qualifiers: Atrial fibrillation type: unspecified Qualified Code(s): I48.91 - Unspecified atrial fibrillation Is this a current diagnosis for this admission?: Yes Plan: Status post cardioversion twice. Currently in normal sinus rhythm. (3) Hypernatremia Is this a current diagnosis for this admission?: Yes Plan: Mild and unchanged. May need to change IV fluids to half-normal saline for maintenance. (4) Respiratory failure Qualifiers: Chronicity: acute Respiratory failure complication: hypoxia Qualified Code(s): J96.01 - Acute respiratory failure with hypoxia Is this a current diagnosis for this admission?: Yes Plan: Just got extubated today and so far is been doing well on BiPAP. (5) Small bowel obstruction Is this a current diagnosis for this admission?: Yes Plan: Status post exploratory laparotomy, postop day #9. Seems to be doing well. Surgery following. (6) CAD (coronary artery disease) Qualifiers: Coronary Disease-Associated Artery/Lesion type: [place] artery [place] vs. transplanted heart: [place] heart Associated angina: without angina Qualified Code(s): I25.10 - Atherosclerotic heart disease of [place] coronary artery without angina pectoris Is this a current diagnosis for this admission?: Yes - Notes Notes: I anticipated the patient will continue to improve from nephrology standpoint. I will sign off for now. Please call us again if we can be of better help. - Time Time with patient: 15-25 minutes
--- NOTE | 2018-09-29 20:27 | PDOC PROGRESS REPORT ---
Subjective Progress Note for:: 09/29/18 Subjective:: Patient seen by the bedside, he was extubated today, still requiring BiPAP his sensorium is still down, he responds to painful stimulus Reason For Visit: ACUTE KIDNEY INJURY,PAROXYSMAL ATRIAL FIBRILLATION Physical Exam Vital Signs: Temp Pulse Resp BP Pulse Ox 99.3 F 76 15 164/94 H 98 09/29/18 19:46 09/29/18 18:00 09/29/18 18:00 09/29/18 18:00 09/29/18 18:00 Intake & Output 09/28/18 09/29/18 09/30/18 06:59 06:59 06:59 Intake Total 2804 4245 1121 Output Total 4650 1729 2775 Balance -8965 -2875 -9842 Weight 133 kg 132.4 kg General appearance: PRESENT: no acute distress Eye exam: PRESENT: PERRLA Respiratory exam: PRESENT: rhonchi Cardiovascular exam: PRESENT: +S1, +S2 GI/Abdominal exam: PRESENT: soft Neurological exam: PRESENT: alert Results Laboratory Results: 09/29/18 04:30 09/29/18 12:08 09/29/18 09/29/18 09/29/18 04:30 04:30 04:30 WBC 14.1 H RBC 3.91 L Hgb 10.7 L Hct 31.8 L MCV 81 MCH 27.3 MCHC 33.5 RDW 16.3 H Plt Count 268 Carbonic Acid 1.35 HCO3/H2CO3 Ratio 20:1 ABG pH 7.42 ABG pCO2 44.7 ABG pO2 77.2 L ABG HCO3 28.1 H ABG O2 Saturation 95.5 ABG Base Excess 3.1 FiO2 45% Sodium Potassium Chloride Carbon Dioxide Anion Gap BUN Creatinine Est GFR ( Amer) Est GFR (Non-Af Amer) Glucose Calcium Magnesium Total Bilirubin AST ALT Alkaline Phosphatase Total Protein Albumin TSH 6.52 H Free T4 2.54 H Free T3 pg/mL 3.35 Urine Color Urine Appearance Urine pH Ur Specific [place] Urine Protein Urine Glucose (UA) Urine Ketones Urine Blood Urine Nitrite Ur Leukocyte Esterase Urine WBC (Auto) Urine RBC (Auto) 09/29/18 09/29/18 09/29/18 04:30 04:30 12:08 WBC RBC Hgb Hct MCV MCH MCHC RDW Plt Count Carbonic Acid HCO3/H2CO3 Ratio ABG pH ABG pCO2 ABG pO2 ABG HCO3 ABG O2 Saturation ABG Base Excess FiO2 Sodium 146.6 H 146.4 H Potassium 3.4 L 3.7 Chloride 111 H 111 H Carbon Dioxide 30 29 Anion Gap 6 6 BUN 17 17 Creatinine 1.41 H 1.37 H Est GFR ( Amer) > 60 > 60 Est GFR (Non-Af Amer) 51 L 52 L Glucose 105 119 H Calcium 8.4 8.3 L Magnesium 1.8 Total Bilirubin 1.8 H AST 36 ALT 41 Alkaline Phosphatase 81 Total Protein 6.1 L Albumin 2.4 L TSH Free T4 Free T3 pg/mL Urine Color YELLOW Urine Appearance SLIGHTLY-CLOUDY Urine pH 5.0 Ur Specific [place] 1.013 Urine Protein NEGATIVE Urine Glucose (UA) NEGATIVE Urine Ketones NEGATIVE Urine Blood MODERATE H Urine Nitrite NEGATIVE Ur Leukocyte Esterase NEGATIVE Urine WBC (Auto) 6 Urine RBC (Auto) 68 09/29/18 13:00 WBC RBC Hgb Hct MCV MCH MCHC RDW Plt Count Carbonic Acid 1.39 H HCO3/H2CO3 Ratio 21:1 ABG pH 7.42 ABG pCO2 46.3 H ABG pO2 96.3 ABG HCO3 29.3 H ABG O2 Saturation 97.4 ABG Base Excess 4.2 FiO2 40% Sodium Potassium Chloride Carbon Dioxide Anion Gap BUN Creatinine Est GFR ( Amer) Est GFR (Non-Af Amer) Glucose Calcium Magnesium Total Bilirubin AST ALT Alkaline Phosphatase Total Protein Albumin TSH Free T4 Free T3 pg/mL Urine Color Urine Appearance Urine pH Ur Specific [place] Urine Protein Urine Glucose (UA) Urine Ketones Urine Blood Urine Nitrite Ur Leukocyte Esterase Urine WBC (Auto) Urine RBC (Auto) 09/26/18 20:30 Tracheal Aspirate Gram Stain - Final 09/26/18 20:30 Tracheal Aspirate Sputum Culture - Final NO GROWTH 3 DAYS 09/24/18 05:48 Blood Blood Culture - Final NO GROWTH IN 5 DAYS 09/24/18 00:25 Blood Blood Culture - Final NO GROWTH IN 5 DAYS 09/15/18 09/15/18 09/15/18 07:07 13:30 13:30 Creatine Kinase 261 H CK-MB (CK-2) 1.63 Troponin I 0.015 0.021 NT-Pro-B Natriuret Pep 239 09/15/18 09/15/18 09/17/18 20:35 20:35 09:48 Creatine Kinase 855 H 1250 H CK-MB (CK-2) 6.56 H Troponin I 0.022 NT-Pro-B Natriuret Pep 09/17/18 09/22/18 09/27/18 09:48 03:15 04:21 Creatine Kinase CK-MB (CK-2) 3.91 Troponin I < 0.012 0.041 NT-Pro-B Natriuret Pep 978 H Impressions: Renal Ultrasound 09/15/18 00:00 IMPRESSION: No evidence hydronephrosis. Small Bowel X-Ray 09/18/18 00:00 IMPRESSION: 1. At 3 hours, much of the contrast remains in the stomach. If clinically feasible, consider positioning patient on the right side to facilitate emptying of the stomach and better opacification of the small bowel. If this can be done, consider additional follow-up radiographs in several hours. 2. There is a small amount of contrast in several distended small bowel segments, likely small bowel obstruction. However, there is not adequate opacification to determine the transition point. KUB X-Ray 09/20/18 00:00 IMPRESSION: Stomach decompressed by nasogastric tube. Persistent gaseous distention of small bowel out of proportion to colon from small bowel obstruction Abdomen/Pelvis CT 09/23/18 00:00 IMPRESSION: Postsurgical changes of midline laparotomy. Additional mild inflammatory stranding about the right lower quadrant mesentery as well as amorphous fluid within the mid abdomen are also likely postsurgical in etiology. Otherwise, no acute abnormality within the abdomen or pelvis is identified. Bibasilar consolidation. Consider atelectasis or pneumonia to include aspiration. Hyperdensity within the gallbladder lumen either indicates vicarious excretion of previously administered contrast material or sludge/stones. TECHNICAL DOCUMENTATION: Quality ID # 436: Final reports with documentation of one or more dose reduction techniques (e.g., Automated exposure control, adjustment of the mA and/or kV according to patient size, use of iterative reconstruction technique) copyright 2011 [employer]- All Rights Reserved Chest X-Ray 09/29/18 06:00 IMPRESSION: No significant change. Assessment & Plan - Diagnosis (1) Acute kidney injury Is this a current diagnosis for this admission?: Yes Plan: The kidney function continues to improve (2) Atrial fibrillation with RVR Is this a current diagnosis for this admission?: Yes (3) Morbid obesity due to excess calories Is this a current diagnosis for this admission?: Yes (4) Hypotension Qualifiers: Hypotension type: unspecified hypotension type Qualified Code(s): I95.9 - Hypotension, unspecified Is this a current diagnosis for this admission?: Yes (5) Small bowel obstruction Is this a current diagnosis for this admission?: Yes (6) Hypernatremia Is this a current diagnosis for this admission?: Yes (7) Respiratory failure Qualifiers: Chronicity: unspecified Respiratory failure complication: unspecified whether with hypoxia or hypercapnia Qualified Code(s): J96.90 - Respiratory failure, unspecified, unspecified whether with hypoxia or hypercapnia Is this a current diagnosis for this admission?: Yes (8) Sepsis following intra-abdominal surgery Is this a current diagnosis for this admission?: Yes (9) Deep vein thrombosis (DVT) of proximal vein of right lower extremity Qualifiers: Chronicity: acute Qualified Code(s): I82.4Y1 - Acute embolism and thrombosis of unspecified deep veins of right proximal lower extremity Is this a current diagnosis for this admission?: Yes Plan: Continue IV heparin (10) Ileitis, terminal Qualifiers: Digestive disease complication type: with abscess Qualified Code(s): K50.014 - Crohn's disease of small intestine with abscess Is this a current diagnosis for this admission?: Yes (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
--- NOTE | 2018-09-29 21:12 | Progress Note ---
Provider Note Provider Note: CARDIOLOGY PROGRESS NOTE by Dr. Ana Jon on 09/29/2018. SUBJECTIVE: The patient has been extubated. He is nonverbal and drowsy. Hence cannot obtain any history from the There is trace pedal edema. There is no ventricular arrhythmia seen on the monitor. There is no recurrence of atrial flutter. He is nonverbal PHYSICAL EXAMINATION: The patient is morbidly obese. He is well-groomed in no acute distress. He is on a BiPAP after being extubated. Selected Entries 09/29/18 09/29/18 11:00 12:00 Temperature 100.9 F H Temperature Axillary Source Pulse Rate 70 Respiratory 21 H Rate Blood Pressure 159/70 H [Left Upper Arm ] Blood Pressure 99 Mean [Left Upper Arm] Blood Pressure Supine Position [Left Upper Arm] O2 Sat by Pulse 99 Oximetry Oxygen Delivery Bi-pap Method ( includes room air) Central Venous 24 Pressure- Mean HEAD: Is atraumatic normocephalic. EYES: Pupils are equal round regular reactive light accommodation. Extraocular movements are normal. There is no conjunctival pallor. There is no scleral icterus. EARS: Tympanic memories are intact. External auditory canals are clear. NOSE: There is no deviated nasal septum. There is no inflammation of the nasal mucous membrane. MOUTH: Mucous membranes of mouth are moist. Tongue is moist. There is no ulcers there is no bleeding from the gums. Throat: There is no redness of the oropharynx. There is no exudates. SKIN: There is no skin rashes or skin lesions. There is no petechia or ecchymosis. NECK: Supple. There is no JVD. Carotids are equal there is no bruit. There is no accessory muscles of respiration use. Trachea central. LUNGS: There is diminished air entry prolonged expiration. There is a few scattered rhonchi. There is no wheezing or rales. On percussion there is hyperresonance. On palpation there is no chest wall tenderness. HEART: S1-S2 is heard S1 is of normal intensity. There is no S3 gallop there is no S4 gallop. There is systolic murmur left sternal border and the apex there is no rub. ABDOMEN: Is soft. The dressing is dry and clean. There is no hepatosplenomegaly. Bowel sounds are absent. EXTREMITIES: Femorals are diminished there is no femoral bruits. Leg pulses are diminished. There is no pedal edema, and no evidence DATA SECURITY CONSULTANT: The patient is conscious awake, drowsy, and nonverbal. Hence cannot assess if the patient is oriented to person. Place or time. There is no focal deficits since the patient is able to move all 4 extremities. There is no focal deficits. PSYCHIATRIC: In-depth psychiatric examination not done. The patient does not appear to be anxious or agitated. Labs- All tests 24 hr 09/28/18 09/29/18 09/29/18 04:30 04:30 04:30 WBC 14.1 H RBC 3.91 L Hgb 10.7 L Hct 31.8 L MCV 81 MCH 27.3 MCHC 33.5 RDW 16.3 H Plt Count 268 APTT Carbonic Acid HCO3/H2CO3 Ratio ABG pH ABG pCO2 ABG pO2 ABG HCO3 ABG Total CO2 ABG O2 Saturation ABG Base Excess FiO2 Sodium Potassium Chloride Carbon Dioxide Anion Gap BUN Creatinine Est GFR ( Amer) Est GFR (Non-Af Amer) Glucose Calcium Magnesium Total Bilirubin Direct Bilirubin Neonat Total Bilirubin Neonat Direct Bilirubin Neonat Indirect Bili AST ALT Alkaline Phosphatase Total Protein Albumin TSH 6.52 H Free T4 2.54 H Free T3 pg/mL 3.35 Urine Color Urine Appearance Urine pH Ur Specific [place] Urine Protein Urine Glucose (UA) Urine Ketones Urine Blood Urine Nitrite Urine Bilirubin Urine Urobilinogen Ur Leukocyte Esterase Urine WBC (Auto) Urine RBC (Auto) U Hyaline Cast (Auto) Urine Mucus (Auto) Urine Ascorbic Acid Slides for Path Review PATHOLOGIST REVIEWED 09/29/18 09/29/18 09/29/18 04:30 04:30 04:30 WBC RBC Hgb Hct MCV MCH MCHC RDW Plt Count APTT 94.5 H Carbonic Acid 1.35 HCO3/H2CO3 Ratio 20:1 ABG pH 7.42 ABG pCO2 44.7 ABG pO2 77.2 L ABG HCO3 28.1 H ABG Total CO2 29.5 H ABG O2 Saturation 95.5 ABG Base Excess 3.1 FiO2 45% Sodium Potassium Chloride Carbon Dioxide Anion Gap BUN Creatinine Est GFR ( Amer) Est GFR (Non-Af Amer) Glucose Calcium Magnesium Total Bilirubin Direct Bilirubin Neonat Total Bilirubin Neonat Direct Bilirubin Neonat Indirect Bili AST ALT Alkaline Phosphatase Total Protein Albumin TSH Free T4 Free T3 pg/mL Urine Color YELLOW Urine Appearance SLIGHTLY-CLOUDY Urine pH 5.0 Ur Specific [place] 1.013 Urine Protein NEGATIVE Urine Glucose (UA) NEGATIVE Urine Ketones NEGATIVE Urine Blood MODERATE H Urine Nitrite NEGATIVE Urine Bilirubin NEGATIVE Urine Urobilinogen 2.0 H Ur Leukocyte Esterase NEGATIVE Urine WBC (Auto) 6 Urine RBC (Auto) 68 U Hyaline Cast (Auto) 5 Urine Mucus (Auto) RARE Urine Ascorbic Acid NEGATIVE Slides for Path Review 09/29/18 09/29/18 09/29/18 04:30 12:08 13:00 WBC RBC Hgb Hct MCV MCH MCHC RDW Plt Count APTT Carbonic Acid 1.39 H HCO3/H2CO3 Ratio 21:1 ABG pH 7.42 ABG pCO2 46.3 H ABG pO2 96.3 ABG HCO3 29.3 H ABG Total CO2 30.7 H ABG O2 Saturation 97.4 ABG Base Excess 4.2 FiO2 40% Sodium 146.6 H 146.4 H Potassium 3.4 L 3.7 Chloride 111 H 111 H Carbon Dioxide 30 29 Anion Gap 6 6 BUN 17 17 Creatinine 1.41 H 1.37 H Est GFR ( Amer) > 60 > 60 Est GFR (Non-Af Amer) 51 L 52 L Glucose 105 119 H Calcium 8.4 8.3 L Magnesium 1.8 Total Bilirubin 1.8 H Direct Bilirubin 1.5 H Neonat Total Bilirubin Not Reportable Neonat Direct Bilirubin Not Reportable Neonat Indirect Bili Not Reportable AST 36 ALT 41 Alkaline Phosphatase 81 Total Protein 6.1 L Albumin 2.4 L TSH Free T4 Free T3 pg/mL Urine Color Urine Appearance Urine pH Ur Specific [place] Urine Protein Urine Glucose (UA) Urine Ketones Urine Blood Urine Nitrite Urine Bilirubin Urine Urobilinogen Ur Leukocyte Esterase Urine WBC (Auto) Urine RBC (Auto) U Hyaline Cast (Auto) Urine Mucus (Auto) Urine Ascorbic Acid Slides for Path Review Renal Ultrasound 09/15/18 00:00 IMPRESSION: No evidence hydronephrosis. Chest X-Ray 09/15/18 07:05 IMPRESSION: No acute disease. Abdomen/Pelvis CT 09/15/18 08:37 IMPRESSION: 1. There is a focal area of inflammatory changes associated with the bowel just to the left of the midline as described. Possible diverticulitis. 2. Considerable fluid is present in the bowel. Cannot exclude an enteritis. Abdomen/Pelvis CT 09/17/18 00:00 IMPRESSION: Small bowel obstruction Chest X-Ray 09/17/18 00:00 IMPRESSION: 1. MINIMAL LINEAR LEFT BASILAR OPACITIES LIKELY ATELECTASIS. 2. ENTERIC TUBE TIP LIKELY OVERLIES PROXIMAL STOMACH ALTHOUGH EVALUATION LIMITED. SIDE PORT NOT IDENTIFIED. KUB X-Ray 09/17/18 00:00 IMPRESSION: Small bowel obstruction. NG tube placement. Small Bowel X-Ray 09/18/18 00:00 IMPRESSION: 1. At 3 hours, much of the contrast remains in the stomach. If clinically feasible, consider positioning patient on the right side to facilitate emptying of the stomach and better opacification of the small bowel. If this can be done, consider additional follow-up radiographs in several hours. 2. There is a small amount of contrast in several distended small bowel segments, likely small bowel obstruction. However, there is not adequate opacification to determine the transition point. KUB X-Ray 09/19/18 00:00 IMPRESSION: Small bowel obstruction. KUB X-Ray 09/20/18 00:00 IMPRESSION: Stomach decompressed by nasogastric tube. Persistent gaseous distention of small bowel out of proportion to colon from small bowel obstruction Chest X-Ray 09/21/18 00:00 IMPRESSION: Endotracheal tube above the idalia Basilar opacity which is in part due to overlying soft tissue artifact . Suspect small effusions are present Abdomen/Pelvis CT 09/23/18 00:00 IMPRESSION: Postsurgical changes of midline laparotomy. Additional mild inflammatory stranding about the right lower quadrant mesentery as well as amorphous fluid within the mid abdomen are also likely postsurgical in etiology. Otherwise, no acute abnormality within the abdomen or pelvis is identified. Bibasilar consolidation. Consider atelectasis or pneumonia to include aspiration. Hyperdensity within the gallbladder lumen either indicates vicarious excretion of previously administered contrast material or sludge/stones. TECHNICAL DOCUMENTATION: Quality ID # 436: Final reports with documentation of one or more dose reduction techniques (e.g., Automated exposure control, adjustment of the mA and/or kV according to patient size, use of iterative reconstruction technique) copyright 2010 [employer]- All Rights Reserved Chest X-Ray 09/23/18 06:00 IMPRESSION: No significant change. Chest X-Ray 09/23/18 23:50 IMPRESSION: Interval line/tube modification. Chest X-Ray 09/24/18 00:00 IMPRESSION: Life lines as described. Airspace disease in the left lower lobe. Atelectasis versus pneumonia. Chest X-Ray 09/25/18 00:00 IMPRESSION: Bibasilar atelectatic changes. Endotracheal tube appears high, above the thoracic inlet. Chest X-Ray 09/25/18 00:00 IMPRESSION: Endotracheal tube now in appropriate position. Chest X-Ray 09/26/18 06:00 IMPRESSION: Worsening bibasilar pneumonia. Chest X-Ray 09/27/18 00:00 IMPRESSION: STABLE APPEARANCE OF THE CHEST. Chest X-Ray 09/27/18 06:00 IMPRESSION: NO CHANGE IN APPEARANCE OF THE CHEST. Chest X-Ray 09/28/18 06:00 IMPRESSION: No significant change. Chest X-Ray 09/29/18 06:00 IMPRESSION: No significant change. Impression/Recommendation:. 1. . Acute respiratory failure hypoxemic: Continue to ventilator support and continue oxygen and respiratory treatments. There is resolved. The patient is on BiPAP after extubation. 2. Status post acute abdomen, status post laparotomy and ileectomy for small bowel obstruction. Continue IV fluids continue antibiotics. At present patient on ventilator continue ventilator support. The patient still not amenable. 3 Paroxysmal atrial fibrillation. Continue amiodarone at 200 mg via p.o. every 12 hours. The patient's liver function tests are normal. Note that the patient's pH is slightly elevated, as also has a T4. Hence we will recheck the patient's TSH in 2 to 3 days. 4. Lower extremity DVT: Patient is on IV heparin. Consider switching to oral anticoagulant . 5. Acute renal failure/injury: Nephrology on the case. This is improved the patient's GFR now is 57 mL which is chronic kidney disease stage III. 6. Hypertension: Blood pressure stable. Earlier the patient was hypotensive with systolic pressure of blood pressure in the 90s requiring emergent cardioversion of the atrial fibrillation with rapid ventricular response. Subsequently the patient blood pressure now is stable. 7. Coronary artery disease: Patient stable with no anginal symptoms, in spite of the patient having atrial fibrillation with rapid ventricular response. Also the patient has no evidence of non-ST elevation MS, so far. Recheck EKG and troponin I in the morning. 8. History of asthma/COPD: Continue anti-COPD treatment. At present no signs of acute exacerbation of COPD. This seems to have resolved back to baseline. 9. Obstructive sleep apnea: Continue BiPAP instructed patient the importance of using BiPAP. 10. Cardiomyopathy: No evidence of heart failure. Note his last LV ejection fraction was within normal limits. 11. AICD placement: No firing of AICD. Note that the AICD was interrogated and data sent remotely to the [employer]. The pacemaker function is normal. There is been no recent AICD shocks. 12. History of depression schizoaffective disorder and posttraumatic stress disorder. 13. Altered mental status? Cause. 14. Morbid obesity. Medications reviewed. Medications adjusted. Management plan discussed with Dr. Ayala. Medical decision making is of moderate complexity. 40 minutes spent on this patient with more than 50% time spent in direct patient care.
[2018-09-29] MEDS: ATORVASTATIN CALCIUM 80 MG TABLET NG SCH (21:42)
[2018-09-29] MEDS: GUAIFENESIN SYRP 200 MG/10 ML UDC PO SCH (21:42)
[2018-09-29] MEDS: ARIPIPRAZOLE 5 MG TABLET NG SCH (21:43)
[2018-09-30] MEDS: NORMAL SALINE 1000 ML 1,000 ML IV PRN ×2 (00:22→17:16)
[2018-09-30] MEDS: HYDRALAZINE HCL INJ/PF 20 MG/1 ML SDV IV PRN (01:01)
[2018-09-30] MEDS: HEPARIN SODIUM,PORCINE/D5W 25,000 UNIT/250 ML RTUINJ IV PRN ×3 (01:02→20:18)
[2018-09-30] MEDS: HYDROMORPHONE HCL INJ/PF 2 MG/ML AMPULE IV PRN ×4 (03:37→18:25)
[2018-09-30] MEDS: ACETAMINOPHEN SOLN 325 MG/10.15 ML UDCUP NG PRN (03:47)
[2018-09-30 04:25] LABS: ARTERIAL BLOOD BASE EXCESS 5.7 mmol/L; ARTERIAL BLOOD HCO3 30.1 mmol/L (20-24); ARTERIAL BLOOD O2 SATURATION 96.5 % (94-98); ARTERIAL BLOOD PCO2 43.1 mmHg (35-45); ARTERIAL BLOOD PH 7.46 (7.35-7.45); ARTERIAL BLOOD PO2 81.2 mmHg (80-100); ARTERIAL BLOOD TOTAL CO2 31.4 mmol/L (23-27)
[2018-09-30 04:31] LABS: HEMATOCRIT 32.2 % (37.9-51.0); HEMOGLOBIN 10.5 g/dL (13.5-17.0); MEAN CORPUSCULAR HEMOGLOBIN 26.4 pg (27.0-33.4); MEAN CORPUSCULAR HGB CONC 32.6 g/dL (32.0-36.0); MEAN CORPUSCULAR VOLUME 81 fl (80-97); PLATELET COUNT 288 10^3/uL (150-450); RED BLOOD COUNT 3.97 10^6/uL (4.35-5.55); RED CELL DISTRIBUTION WIDTH 16.8 % (11.5-14.0); WHITE BLOOD COUNT 11.3 10^3/uL (4.0-10.5)
[2018-09-30 04:49] LABS: ALANINE AMINOTRANSFERASE 38 U/L (21-72); ALBUMIN 2.6 g/dL (3.5-5.0); ALKALINE PHOSPHATASE 108 U/L (38-126); ANION GAP 9 (5-19); ASPARTATE AMINO TRANSFERASE 46 U/L (17-59); BILIRUBIN,TOTAL 2.6 mg/dL (0.2-1.3); BLOOD UREA NITROGEN 17 mg/dL (7-20); CALCIUM 8.2 mg/dL (8.4-10.2); CARBON DIOXIDE 29 mmol/L (22-30); CHLORIDE 111 mmol/L (98-107); GLUCOSE 115 mg/dL (75-110); POTASSIUM 3.4 mmol/L (3.6-5.0); SODIUM 148.9 mmol/L (137-145); TOTAL PROTEIN 6.2 g/dL (6.3-8.2)
[2018-09-30 04:52] LABS: ARTERIAL BLOOD FIO2 30%
[2018-09-30 05:13] LABS: ABSOLUTE LYMPHOCYTES# (MANUAL) 1.7 10^3/uL (0.5-4.7); ABSOLUTE MONOCYTES # (MANUAL) 0.8 10^3/uL (0.1-1.4); ABSOLUTE NEUTROPHILS# (MANUAL) 8.2 10^3/uL (1.7-8.2); BASOPHILS % (MANUAL) 0 % (0-2); EOSINOPHILS % (MANUAL) 5 % (0-6); LYMPHOCYTES % (MANUAL) 15 % (13-45); MONOCYTES % (MANUAL) 7 % (3-13); SEGMENTED NEUTROPHILS % (MAN) 73 % (42-78); TOTAL CELLS COUNTED 100
[2018-09-30 05:14] LABS: ANISOCYTOSIS 1+; OVALOCYTES SLIGHT; PLATELET COMMENT ADEQUATE; STOMATOCYTES SLIGHT; TARGET CELLS 1+
[2018-09-30] MEDS: IMIPENEM/CILASTATIN SODIUM 250 MG in NORMAL SALINE 100 ML IV SCH ×2 (05:22→17:16)
--- NOTE | 2018-09-30 07:10 | RADIOLOGY REPORT (SQ) ---
EXAM DESCRIPTION: X-ray single view chest. CLINICAL HISTORY: 63 years Male, RESPIRATORY FAILURE PATIENT ON VENT COMPARISON: 09/29/2018 and 09/28/2018 TECHNIQUE: Single portable x-ray view of the chest performed on 09/30/2018 at 6:32 AM FINDINGS: The lungs are well expanded. There is improving aeration of the lungs when compared to the prior studies. The lateral costophrenic sulci are grossly clear. There is no evidence of a pneumothorax. The cardiac silhouette is stable and is prominent. The cardiac silhouette may be accentuated by the portable technique. The mediastinal contours are normal. No acute osseous abnormality is identified. No focal soft tissue abnormalities are seen. Lines and tubes: There is a grossly stable left subclavian bipolar pacemaker. The endotracheal tube has been removed. The feeding tube tip is not well visualized on this examination. The right IJ central venous catheter is grossly stable in position and extends over the region of the superior vena cava. There are multiple overlying day habilitation specialist leads. IMPRESSION: 1. Improving aeration of the lungs when compared to the prior studies. 2. There has been interval removal of the endotracheal tube. 3. Remaining life support lines and tubes are grossly stable.
[2018-09-30] MEDS: PANTOPRAZOLE SODIUM 40 MG PACKET.DR NG SCH ×2 (08:10→16:53)
[2018-09-30] MEDS: POTASSIUM CHLORIDE 20 MEQ/50 ML RTU IV SCH ×2 (08:10→09:51)
[2018-09-30] MEDS: FUROSEMIDE 40 MG TABLET PO SCH (08:10)
[2018-09-30] MEDS: CLONAZEPAM 1 MG TABLET NG SCH ×2 (09:27→21:40)
[2018-09-30] MEDS: AMIODARONE HCL 200 MG TABLET NG SCH ×2 (09:27→21:41)
[2018-09-30] MEDS: BENZTROPINE MESYLATE 1 MG TABLET NG SCH ×2 (09:27→21:40)
[2018-09-30] MEDS: METOPROLOL TARTRATE 50 MG TABLET NG SCH ×2 (09:27→21:41)
[2018-09-30] MEDS: CYANOCOBALAMIN (VITAMIN B-12) 1,000 MCG TABLET NG SCH (09:27)
[2018-09-30] MEDS: GUAIFENESIN SYRP 200 MG/10 ML UDC PO SCH ×2 (09:27→21:40)
[2018-09-30] MEDS: PAROXETINE HCL 20 MG TABLET NG SCH (09:28)
[2018-09-30] MEDS: MAGNESIUM OXIDE 400 MG TABLET NG SCH (09:28)
--- NOTE | 2018-09-30 11:45 | RADIOLOGY REPORT (SQ) ---
EXAM DESCRIPTION: CT HEAD WITHOUT COMPLETED DATE/TIME: 09/30/2018 11:11 am REASON FOR STUDY: r/o intracranial bleed ,lethargic COMPARISON: 11/30/2017. TECHNIQUE: Axial images acquired through the brain without intravenous contrast. Images reviewed wi th bone, brain and subdural windows. Additional sagittal and coronal reconstructions were generated. Images stored on PACS. All CT scanners at this facility use dose modulation, iterative reconstruction, and/or weight based d osing when appropriate to reduce radiation dose to as low as reasonably achievable (ALARA). [facility]: Dose Right [facility]: CareDose [facility]: Dose Right [facility]: Teradose 4D [facility]: Smart Friendly Wager App RADIATION DOSE: CT Rad equipment meets quality standard of care and radiation dose reduction techniq ues were employed. CTDIvol: 48.5 mGy. DLP: 855 mGy-cm.. LIMITATIONS: None. FINDINGS: VENTRICLES: Normal size and contour. Cisterns are patent. CEREBRUM: No masses. No hemorrhage. No midline shift. No evidence for acute infarction. Normal gra y/white matter differentiation. No areas of low density in the white matter. CEREBELLUM: No masses. No hemorrhage. No alteration of density. No evidence for acute infarction. EXTRAAXIAL SPACES: No fluid collections. No masses. ORBITS AND GLOBE: No intra- or extraconal masses. Normal contour of globe without masses. CALVARIUM: No fracture. PARANASAL SINUSES: No fluid or mucosal thickening. SOFT TISSUES: No mass or hematoma. OTHER: Partially visualized nasogastric tube entering the right side of the nasal cavity. IMPRESSION: 1. No significant interval changes since the prior examination dated 11/30/2017. No acu te intracranial abnormality. EVIDENCE OF ACUTE STROKE: NO. COMMENT: Quality ID # 436: Final reports with documentation of one or more dose reduction techniques (e.g., Automated exposure control, adjustment of the mA and/or kV according to patient size, use of iterative reconstruction technique) TECHNICAL DOCUMENTATION: JOB ID: [id number] [employer]- All Rights Reserved Reading location - IP/workstation name: [email or web address]
[2018-09-30 14:59] LABS: ANION GAP 5 (5-19); BLOOD UREA NITROGEN 16 mg/dL (7-20); CALCIUM 8.5 mg/dL (8.4-10.2); CARBON DIOXIDE 32 mmol/L (22-30); CHLORIDE 111 mmol/L (98-107); GLUCOSE 118 mg/dL (75-110); POTASSIUM 3.9 mmol/L (3.6-5.0); SODIUM 147.7 mmol/L (137-145)
[2018-09-30] MEDS ORDERED: FUROSEMIDE INJ/PF 20 MG/2 ML SDV IV ONE (15:00)
--- NOTE | 2018-09-30 15:10 | PDOC PROGRESS REPORT ---
Subjective Progress Note for:: 09/30/18 Reason For Visit: ACUTE KIDNEY INJURY,PAROXYSMAL ATRIAL FIBRILLATION Physical Exam Vital Signs: Temp Pulse Resp BP Pulse Ox 99.2 F 73 30 H 160/92 H 96 09/30/18 14:00 09/30/18 14:00 09/30/18 14:00 09/30/18 14:00 09/30/18 14:00 Intake & Output 09/29/18 09/30/18 10/01/18 06:59 06:59 06:59 Intake Total 2445 2431 406 Output Total 3540 4185 1280 [facility]1095 [id number] Weight 132.4 kg 131.6 kg Results Laboratory Results: 09/30/18 04:00 09/30/18 14:02 09/30/18 09/30/18 09/30/18 04:00 04:00 04:00 WBC 11.3 H RBC 3.97 L Hgb 10.5 L Hct 32.2 L MCV 81 MCH 26.4 L MCHC 32.6 RDW 16.8 H Plt Count 288 Seg Neutrophils % Not Reportable Lymphocytes % Not Reportable Monocytes % Not Reportable Eosinophils % Not Reportable Basophils % Not Reportable Absolute Neutrophils Not Reportable Absolute Lymphocytes Not Reportable Absolute Monocytes Not Reportable Absolute Eosinophils Not Reportable Absolute Basophils Not Reportable Carbonic Acid 1.30 HCO3/H2CO3 Ratio 23:1 ABG pH 7.46 H ABG pCO2 43.1 ABG pO2 81.2 ABG HCO3 30.1 H ABG O2 Saturation 96.5 ABG Base Excess 5.7 FiO2 30% Sodium 148.9 H Potassium 3.4 L Chloride 111 H Carbon Dioxide 29 Anion Gap 9 BUN 17 Creatinine 1.34 H Est GFR ( Amer) > 60 Est GFR (Non-Af Amer) 54 L Glucose 115 H Calcium 8.2 L Magnesium 1.7 Total Bilirubin 2.6 H AST 46 ALT 38 Alkaline Phosphatase 108 Total Protein 6.2 L Albumin 2.6 L 09/30/18 14:02 WBC RBC Hgb Hct MCV MCH MCHC RDW Plt Count Seg Neutrophils % Lymphocytes % Monocytes % Eosinophils % Basophils % Absolute Neutrophils Absolute Lymphocytes Absolute Monocytes Absolute Eosinophils Absolute Basophils Carbonic Acid HCO3/H2CO3 Ratio ABG pH ABG pCO2 ABG pO2 ABG HCO3 ABG O2 Saturation ABG Base Excess FiO2 Sodium 147.7 H Potassium 3.9 Chloride 111 H Carbon Dioxide 32 H Anion Gap 5 BUN 16 Creatinine 1.34 H Est GFR ( Amer) > 60 Est GFR (Non-Af Amer) 54 L Glucose 118 H Calcium 8.5 Magnesium Total Bilirubin AST ALT Alkaline Phosphatase Total Protein Albumin 09/15/18 09/15/18 09/15/18 07:07 13:30 13:30 Creatine Kinase 261 H CK-MB (CK-2) 1.63 Troponin I 0.015 0.021 NT-Pro-B Natriuret Pep 239 09/15/18 09/15/18 09/17/18 20:35 20:35 09:48 Creatine Kinase 855 H 1250 H CK-MB (CK-2) 6.56 H Troponin I 0.022 NT-Pro-B Natriuret Pep 09/17/18 09/22/18 09/27/18 09:48 03:15 04:21 Creatine Kinase CK-MB (CK-2) 3.91 Troponin I < 0.012 0.041 NT-Pro-B Natriuret Pep 978 H Impressions: Renal Ultrasound 09/15/18 00:00 IMPRESSION: No evidence hydronephrosis. Small Bowel X-Ray 09/18/18 00:00 IMPRESSION: 1. At 3 hours, much of the contrast remains in the stomach. If clinically feasible, consider positioning patient on the right side to facilitate emptying of the stomach and better opacification of the small bowel. If this can be done, consider additional follow-up radiographs in several hours. 2. There is a small amount of contrast in several distended small bowel segments, likely small bowel obstruction. However, there is not adequate opacification to determine the transition point. KUB X-Ray 09/20/18 00:00 IMPRESSION: Stomach decompressed by nasogastric tube. Persistent gaseous distention of small bowel out of proportion to colon from small bowel obstruction Abdomen/Pelvis CT 09/23/18 00:00 IMPRESSION: Postsurgical changes of midline laparotomy. Additional mild inflammatory stranding about the right lower quadrant mesentery as well as amorphous fluid within the mid abdomen are also likely postsurgical in etiology. Otherwise, no acute abnormality within the abdomen or pelvis is identified. Bibasilar consolidation. Consider atelectasis or pneumonia to include aspiration. Hyperdensity within the gallbladder lumen either indicates vicarious excretion of previously administered contrast material or sludge/stones. TECHNICAL DOCUMENTATION: Quality ID # 436: Final reports with documentation of one or more dose reduction techniques (e.g., Automated exposure control, adjustment of the mA and/or kV according to patient size, use of iterative reconstruction technique) copyright 2011 [employer]- All Rights Reserved Head CT 09/30/18 00:00 IMPRESSION: 1. No significant interval changes since the prior examination dated 11/30/2017. No acute intracranial abnormality. EVIDENCE OF ACUTE STROKE: NO. Chest X-Ray 09/30/18 06:00 IMPRESSION: 1. Improving aeration of the lungs when compared to the prior studies. 2. There has been interval removal of the endotracheal tube. 3. Remaining life support lines and tubes are grossly stable. Assessment & Plan - Diagnosis (1) Small bowel obstruction Is this a current diagnosis for this admission?: Yes - Plan Summary Plan Summary: This is a 63-year-old male status post exploratory laparotomy with ileo- cecectomy for a necrotic portion of small intestine with stricture. The patient has been extubated, but is currently confused. His midline abdominal wound appears clean, without erythema or purulent drainage. His abdomen appears nondistended. The nurse reports that the patient has not had a bowel movement in several days. I will add Colace 200 mg p.o. twice daily (to be given via the NG tube). The patient's leukocytosis appears to be improving. Check KUB today to evaluate the patient's bowel gas pattern. Will follow.
--- NOTE | 2018-09-30 16:17 | RADIOLOGY REPORT (SQ) ---
EXAM DESCRIPTION: KUB/ABDOMEN (SINGLE VIEW) COMPLETED DATE/TIME: 09/30/2018 3:19 pm REASON FOR STUDY: ileus COMPARISON: 09/20/2018 NUMBER OF VIEWS: One view. TECHNIQUE: Supine radiographic image of the abdomen acquired. LIMITATIONS: None. FINDINGS: BOWEL GAS PATTERN: There are gas-filled loops of large and small bowel. CALCIFICATIONS: No suspicious calcifications. SOFT TISSUES: No gross mass or suggestion of organomegaly. HARDWARE: Anterior skin lupe. Penile implants. Possible reservoir within the pelvis. BONES: No acute fracture. No worrisome bone lesions. OTHER: No other significant finding. IMPRESSION: Ileus. TECHNICAL DOCUMENTATION: JOB ID: [id number] [employer]- All Rights Reserved Reading location - IP/workstation name: [email or web address]
[2018-09-30] MEDS: DOCUSATE SODIUM 100 MG/10 ML UDC PO SCH (17:14)
[2018-09-30] MEDS ORDERED: METOCLOPRAMIDE HCL INJ/PF 10 MG/2 ML SDV IV SCH (18:00)
--- NOTE | 2018-09-30 20:45 | PDOC PROGRESS REPORT ---
Subjective Progress Note for:: 09/30/18 Subjective:: Patient is confused presently on IV heparin for extensive DVT, a CAT scan of the head done negative for intracranial hemorrhage KUB showed adynamic ileus Reason For Visit: ACUTE KIDNEY INJURY,PAROXYSMAL ATRIAL FIBRILLATION Physical Exam Vital Signs: Temp Pulse Resp BP Pulse Ox 100.4 F 79 20 161/92 H 96 09/30/18 20:00 09/30/18 18:00 09/30/18 18:00 09/30/18 18:00 09/30/18 18:00 Intake & Output 09/29/18 09/30/18 10/01/18 06:59 06:59 06:59 Intake Total 2445 2431 1756 Output Total 5695 3287 2540 Balance -8053 -4203 -8794 Weight 132.4 kg 131.6 kg General appearance: PRESENT: no acute distress Eye exam: PRESENT: PERRLA Respiratory exam: PRESENT: clear to auscultation martita Cardiovascular exam: PRESENT: +S1, +S2 GI/Abdominal exam: PRESENT: soft Neurological exam: PRESENT: alert Results Laboratory Results: 09/30/18 04:00 09/30/18 14:02 09/30/18 09/30/18 09/30/18 04:00 04:00 04:00 WBC 11.3 H RBC 3.97 L Hgb 10.5 L Hct 32.2 L MCV 81 MCH 26.4 L MCHC 32.6 RDW 16.8 H Plt Count 288 Seg Neutrophils % Not Reportable Lymphocytes % Not Reportable Monocytes % Not Reportable Eosinophils % Not Reportable Basophils % Not Reportable Absolute Neutrophils Not Reportable Absolute Lymphocytes Not Reportable Absolute Monocytes Not Reportable Absolute Eosinophils Not Reportable Absolute Basophils Not Reportable Carbonic Acid 1.30 HCO3/H2CO3 Ratio 23:1 ABG pH 7.46 H ABG pCO2 43.1 ABG pO2 81.2 ABG HCO3 30.1 H ABG O2 Saturation 96.5 ABG Base Excess 5.7 FiO2 30% Sodium 148.9 H Potassium 3.4 L Chloride 111 H Carbon Dioxide 29 Anion Gap 9 BUN 17 Creatinine 1.34 H Est GFR ( Amer) > 60 Est GFR (Non-Af Amer) 54 L Glucose 115 H Calcium 8.2 L Magnesium 1.7 Total Bilirubin 2.6 H AST 46 ALT 38 Alkaline Phosphatase 108 Total Protein 6.2 L Albumin 2.6 L 09/30/18 14:02 WBC RBC Hgb Hct MCV MCH MCHC RDW Plt Count Seg Neutrophils % Lymphocytes % Monocytes % Eosinophils % Basophils % Absolute Neutrophils Absolute Lymphocytes Absolute Monocytes Absolute Eosinophils Absolute Basophils Carbonic Acid HCO3/H2CO3 Ratio ABG pH ABG pCO2 ABG pO2 ABG HCO3 ABG O2 Saturation ABG Base Excess FiO2 Sodium 147.7 H Potassium 3.9 Chloride 111 H Carbon Dioxide 32 H Anion Gap 5 BUN 16 Creatinine 1.34 H Est GFR ( Amer) > 60 Est GFR (Non-Af Amer) 54 L Glucose 118 H Calcium 8.5 Magnesium Total Bilirubin AST ALT Alkaline Phosphatase Total Protein Albumin 09/15/18 09/15/18 09/15/18 07:07 13:30 13:30 Creatine Kinase 261 H CK-MB (CK-2) 1.63 Troponin I 0.015 0.021 NT-Pro-B Natriuret Pep 239 09/15/18 09/15/18 09/17/18 20:35 20:35 09:48 Creatine Kinase 855 H 1250 H CK-MB (CK-2) 6.56 H Troponin I 0.022 NT-Pro-B Natriuret Pep 09/17/18 09/22/18 09/27/18 09:48 03:15 04:21 Creatine Kinase CK-MB (CK-2) 3.91 Troponin I < 0.012 0.041 NT-Pro-B Natriuret Pep 978 H Impressions: Renal Ultrasound 09/15/18 00:00 IMPRESSION: No evidence hydronephrosis. Small Bowel X-Ray 09/18/18 00:00 IMPRESSION: 1. At 3 hours, much of the contrast remains in the stomach. If clinically feasible, consider positioning patient on the right side to facilitate emptying of the stomach and better opacification of the small bowel. If this can be done, consider additional follow-up radiographs in several hours. 2. There is a small amount of contrast in several distended small bowel segments, likely small bowel obstruction. However, there is not adequate opacification to determine the transition point. Abdomen/Pelvis CT 09/23/18 00:00 IMPRESSION: Postsurgical changes of midline laparotomy. Additional mild inflammatory stranding about the right lower quadrant mesentery as well as amorphous fluid within the mid abdomen are also likely postsurgical in etiology. Otherwise, no acute abnormality within the abdomen or pelvis is identified. Bibasilar consolidation. Consider atelectasis or pneumonia to include aspiration. Hyperdensity within the gallbladder lumen either indicates vicarious excretion of previously administered contrast material or sludge/stones. TECHNICAL DOCUMENTATION: Quality ID # 436: Final reports with documentation of one or more dose reduction techniques (e.g., Automated exposure control, adjustment of the mA and/or kV according to patient size, use of iterative reconstruction technique) copyright 2011 [employer]- All Rights Reserved Head CT 09/30/18 00:00 IMPRESSION: 1. No significant interval changes since the prior examination dated 11/30/2017. No acute intracranial abnormality. EVIDENCE OF ACUTE STROKE: NO. Chest X-Ray 09/30/18 06:00 IMPRESSION: 1. Improving aeration of the lungs when compared to the prior studies. 2. There has been interval removal of the endotracheal tube. 3. Remaining life support lines and tubes are grossly stable. KUB X-Ray 09/30/18 14:23 IMPRESSION: Ileus. Assessment & Plan - Diagnosis (1) Acute kidney injury Is this a current diagnosis for this admission?: Yes (2) Atrial fibrillation with RVR Is this a current diagnosis for this admission?: Yes (3) Morbid obesity due to excess calories Is this a current diagnosis for this admission?: Yes (4) Hypotension Qualifiers: Hypotension type: unspecified hypotension type Qualified Code(s): I95.9 - Hypotension, unspecified Is this a current diagnosis for this admission?: Yes (5) Small bowel obstruction Is this a current diagnosis for this admission?: Yes (6) Hypernatremia Is this a current diagnosis for this admission?: Yes (7) Respiratory failure Qualifiers: Chronicity: unspecified Respiratory failure complication: unspecified whether with hypoxia or hypercapnia Qualified Code(s): J96.90 - Respiratory failure, unspecified, unspecified whether with hypoxia or hypercapnia Is this a current diagnosis for this admission?: Yes (8) Sepsis following intra-abdominal surgery Is this a current diagnosis for this admission?: Yes (9) Deep vein thrombosis (DVT) of proximal vein of right lower extremity Qualifiers: Chronicity: acute Qualified Code(s): I82.4Y1 - Acute embolism and thrombosis of unspecified deep veins of right proximal lower extremity Is this a current diagnosis for this admission?: Yes Plan: Continue IV heparin (10) Ileitis, terminal Qualifiers: Digestive disease complication type: with abscess Qualified Code(s): K50.014 - Crohn's disease of small intestine with abscess Is this a current diagnosis for this admission?: Yes (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
[2018-09-30] MEDS: ARIPIPRAZOLE 5 MG TABLET NG SCH (21:40)
[2018-09-30] MEDS: ATORVASTATIN CALCIUM 80 MG TABLET NG SCH (21:40)
--- NOTE | 2018-09-30 21:50 | Progress Note ---
Provider Note Provider Note: [facility] cardiology PROGRESS NOTE by Dr. Ana Jon on 09/30/2018. Next SUBJECTIVE. The patient has been extubated. He remains in sinus rhythm. There is no recurrence of atrial fibrillation. The patient is nonverbal. When called by name he just opens his eyes. But does not respond to any verbal requests or get in Gu-Win chest. But he moves all 4 extremities. And cannot get any history from the patient. PHYSICAL EXAMINATION: The patient is morbidly obese. He is in no acute distress. Selected Entries 09/30/18 09/30/18 16:00 16:45 Temperature 98.2 F Temperature Axillary Source Pulse Rate 71 Respiratory 28 H Rate Blood Pressure 143/85 H [Left Upper Arm ] Blood Pressure 104 Mean [Left Upper Arm] Blood Pressure Supine Position [Left Upper Arm] O2 Sat by Pulse 96 Oximetry Oxygen Delivery Nasal Cannula Method ( includes room air) Fraction of 40 Inspired Oxygen (FIO2) Oxygen Flow 6 Rate HEAD: Is atraumatic normocephalic. EYES: Pupils are equal round regular reactive light accommodation. Extraocular movements are normal. There is no conjunctival pallor. There is no scleral icterus. EARS: Tympanic memories are intact. External auditory canals are clear. NOSE: There is no deviated nasal septum. There is no inflammation of the nasal mucous membrane. MOUTH: Mucous membranes of mouth are moist. Tongue is moist. There is no ulcers there is no bleeding from the gums. Throat: There is no redness of the oropharynx. There is no exudates. SKIN: There is no skin rashes or skin lesions. There is no petechia or ecchymosis. NECK: Supple. There is no JVD. Carotids are equal there is no bruit. There is no accessory muscles of respiration use. Trachea central. LUNGS: There is diminished air entry prolonged expiration. There is a few scattered rhonchi. There is no wheezing or rales. On percussion there is hyperresonance. On palpation there is no chest wall tenderness. HEART: S1-S2 is heard S1 is of normal intensity. There is no S3 gallop there is no S4 gallop. There is systolic murmur left sternal border and the apex there is no rub. ABDOMEN: Is soft. The dressing is dry and clean. There is no hepatosplenomegaly. Bowel sounds are absent. EXTREMITIES: Femorals are dimi nished there is no femoral bruits. Leg pulses are diminished. There is no pedal edema, and no evidence MOLD BLOWER: The patient is conscious awake, and nonverbal. Cannot assess the patient's orientation to person place or time.. There is no focal deficits, she is able to move all 4 extremities.. PSYCHIATRIC: In-depth psychiatric examination not done. The patient does not appear to be anxious or agitated 09/30/18 09/30/18 09/30/18 04:00 04:00 14:02 WBC 11.3 H RBC 3.97 L Hgb 10.5 L Hct 32.2 L MCV 81 MCH 26.4 L MCHC 32.6 RDW 16.8 H Plt Count 288 Total Counted 100 Seg Neutrophils % Not Reportable Seg Neuts % (Manual) 73 Lymphocytes % Not Reportable Lymphocytes % (Manual) 15 Monocytes % Not Reportable Monocytes % (Manual) 7 Eosinophils % Not Reportable Eosinophils % (Manual) 5 Basophils % Not Reportable Basophils % (Manual) 0 Absolute Neutrophils Not Reportable Abs Neuts (Manual) 8.2 Abs Lymphs (Manual) 1.7 Absolute Monocytes Not Reportable Abs Monocytes (Manual) 0.8 Sodium 148.9 H 147.7 H Potassium 3.4 L 3.9 Chloride 111 H 111 H Carbon Dioxide 29 32 H Anion Gap 9 BUN 17 16 Creatinine 1.34 H 1.34 H Est GFR ( Amer) > 60 > 60 Glucose 115 H 118 H Calcium 8.2 L 8.5 Magnesium 1.7 Total Bilirubin 2.6 H Direct Bilirubin 2.0 H Neonat Total Bilirubin Not Reportable Neonat Direct Bilirubin Not Reportable Neonat Indirect Bili Not Reportable AST 46 ALT 38 Alkaline Phosphatase 108 Total Protein 6.2 L Albumin 2.6 L Renal Ultrasound 09/15/18 00:00 IMPRESSION: No evidence hydronephrosis. Chest X-Ray 09/15/18 07:05 IMPRESSION: No acute disease. Abdomen/Pelvis CT 09/15/18 08:37 IMPRESSION: 1. There is a focal area of inflammatory changes associated with the bowel just to the left of the midline as described. Possible diverticulitis. 2. Considerable fluid is present in the bowel. Cannot exclude an enteritis. Abdomen/Pelvis CT 09/17/18 00:00 IMPRESSION: Small bowel obstruction Chest X-Ray 09/17/18 00:00 IMPRESSION: 1. MINIMAL LINEAR LEFT BASILAR OPACITIES LIKELY ATELECTASIS. 2. ENTERIC TUBE TIP LIKELY OVERLIES PROXIMAL STOMACH ALTHOUGH EVALUATION LIMITED. SIDE PORT NOT IDENTIFIED. KUB X-Ray 09/17/18 00:00 IMPRESSION: Small bowel obstruction. NG tube placement. Small Bowel X-Ray 09/18/18 00:00 IMPRESSION: 1. At 3 hours, much of the contrast remains in the stomach. If clinically feasible, consider positioning patient on the right side to facilitate emptying of the stomach and better opacification of the small bowel. If this can be done, consider additional follow-up radiographs in several hours. 2. There is a small amount of contrast in several distended small bowel segments, likely small bowel obstruction. However, there is not adequate opacification to determine the transition point. KUB X-Ray 09/19/18 00:00 IMPRESSION: Small bowel obstruction. KUB X-Ray 09/20/18 00:00 IMPRESSION: Stomach decompressed by nasogastric tube. Persistent gaseous distention of small bowel out of proportion to colon from small bowel obstruction Chest X-Ray 09/21/18 00:00 IMPRESSION: Endotracheal tube above the idalia Basilar opacity which is in part due to overlying soft tissue artifact . Suspect small effusions are present Abdomen/Pelvis CT 09/23/18 00:00 IMPRESSION: Postsurgical changes of midline laparotomy. Additional mild inflammatory stranding about the right lower quadrant mesentery as well as amorphous fluid within the mid abdomen are also likely postsurgical in etiology. Otherwise, no acute abnormality within the abdomen or pelvis is identified. Bibasilar consolidation. Consider atelectasis or pneumonia to include aspiration. Hyperdensity within the gallbladder lumen either indicates vicarious excretion of previously administered contrast material or sludge/stones. TECHNICAL DOCUMENTATION: Quality ID # 436: Final reports with documentation of one or more dose reduction techniques (e.g., Automated exposure control, adjustment of the mA and/or kV according to patient size, use of iterative reconstruction technique) copyright 2011 [employer]- All Rights Reserved Chest X-Ray 09/23/18 06:00 IMPRESSION: No significant change. Chest X-Ray 09/23/18 23:50 IMPRESSION: Interval line/tube modification. Chest X-Ray 09/24/18 00:00 IMPRESSION: Life lines as described. Airspace disease in the left lower lobe. Atelectasis versus pneumonia. Chest X-Ray 09/25/18 00:00 IMPRESSION: Bibasilar atelectatic changes. Endotracheal tube appears high, above the thoracic inlet. Chest X-Ray 09/25/18 00:00 IMPRESSION: Endotracheal tube now in appropriate position. Chest X-Ray 09/26/18 06:00 IMPRESSION: Worsening bibasilar pneumonia. Chest X-Ray 09/27/18 00:00 IMPRESSION: STABLE APPEARANCE OF THE CHEST. Chest X-Ray 09/27/18 06:00 IMPRESSION: NO CHANGE IN APPEARANCE OF THE CHEST. Chest X-Ray 09/28/18 06:00 IMPRESSION: No significant change. Chest X-Ray 09/29/18 06:00 IMPRESSION: No significant change. Head CT 09/30/18 00:00 IMPRESSION: 1. No significant interval changes since the prior examination dated 11/30/2017. No acute intracranial abnormality. EVIDENCE OF ACUTE STROKE: NO. Chest X-Ray 09/30/18 06:00 IMPRESSION: 1. Improving aeration of the lungs when compared to the prior studies. 2. There has been interval removal of the endotracheal tube. 3. Remaining life support lines and tubes are grossly stable. KUB X-Ray 09/30/18 14:23 IMPRESSION: Ileus. Impression/Recommendation:. 1. . Acute respiratory failure hypoxemic: Continue to ventilator support and continue oxygen and respiratory treatments. There is resolved. The patient is on BiPAP after extubation. 2. Status post acute abdomen, status post laparotomy and ileectomy for small bowel obstruction. Continue IV fluids continue antibiotics. At present patient on ventilator continue ventilator support. The patient still not amenable. 3 Paroxysmal atrial fibrillation. Continue amiodarone at 200 mg via p.o. every 12 hours. The patient's liver function tests are normal. Note that the patient's pH is slightly elevated, as also has a T4. Hence we will recheck the patient's TSH in 2 to 3 days. 4. Lower extremity DVT: Patient is on IV heparin. Consider switching to oral anticoagulant . 5. Acute renal failure/injury: Nephrology on the case. This is improved the patient's GFR now is 57 mL which is chronic kidney disease stage III. 6. Hypertension: Blood pressure stable. Earlier the patient was hypotensive with systolic pressure of blood pressure in the 90s requiring emergent cardioversion of the atrial fibrillation with rapid ventricular response. Subsequently the patient blood pressure now is stable. 7. Coronary artery disease: Patient stable with no anginal symptoms, in spite of the patient having atrial fibrillation with rapid ventricular response. Also the patient has no evidence of non-ST elevation MT, so far. Recheck EKG and troponin I in the morning. 8. History of asthma/COPD: Continue anti-COPD treatment. At present no signs of acute exacerbation of COPD. This seems to have resolved back to baseline. 9. Obstructive sleep apnea: Continue BiPAP instructed patient the importance of using BiPAP. 10. Cardiomyopathy: No evidence of heart failure. Note his last LV ejection fraction was within normal limits. 11. AICD placement: No firing of AICD. Note that the AICD was interrogated and data sent remotely to the [employer]. The pacemaker function is normal. There is been no recent AICD shocks. 12. History of depression schizoaffective disorder and posttraumatic stress disorder. 13. Altered mental status? Cause.There is no evidence of CVA by CT of Head. 14. Morbid obesity. Medications reviewed. Medications adjusted. Management plan discussed with Dr. Ayala. Medical decision making is of moderate complexity. 40 minutes spent on this patient with more than 50% time spent in direct patient care.
[2018-10-01] MEDS: ACETAMINOPHEN SOLN 325 MG/10.15 ML UDCUP NG PRN (03:25)
[2018-10-01 03:57] LABS: HEMOGLOBIN 10.8 g/dL (13.5-17.0); MEAN CORPUSCULAR HEMOGLOBIN 26.7 pg (27.0-33.4); MEAN CORPUSCULAR HGB CONC 32.6 g/dL (32.0-36.0); MEAN CORPUSCULAR VOLUME 82 fl (80-97); PLATELET COUNT 308 10^3/uL (150-450); RED BLOOD COUNT 4.03 10^6/uL (4.35-5.55); RED CELL DISTRIBUTION WIDTH 16.3 % (11.5-14.0); WHITE BLOOD COUNT 10.9 10^3/uL (4.0-10.5)
[2018-10-01 03:58] LABS: ARTERIAL BLOOD BASE EXCESS 4.1 mmol/L; ARTERIAL BLOOD H2CO3 1.42 mmol/L (1.05-1.35); ARTERIAL BLOOD HCO3 29.4 mmol/L (20-24); ARTERIAL BLOOD O2 SATURATION 98.1 % (94-98); ARTERIAL BLOOD PCO2 47.2 mmHg (35-45); ARTERIAL BLOOD PH 7.41 (7.35-7.45); ARTERIAL BLOOD PO2 110.7 mmHg (80-100); ARTERIAL BLOOD TOTAL CO2 30.9 mmol/L (23-27)
[2018-10-01 06:18] LABS: ANION GAP 5 (5-19); BLOOD UREA NITROGEN 17 mg/dL (7-20); CALCIUM 8.4 mg/dL (8.4-10.2); CARBON DIOXIDE 33 mmol/L (22-30); CHLORIDE 110 mmol/L (98-107); GLUCOSE 120 mg/dL (75-110); POTASSIUM 3.7 mmol/L (3.6-5.0); SODIUM 148.4 mmol/L (137-145)
[2018-10-01] MEDS: IMIPENEM/CILASTATIN SODIUM 250 MG in NORMAL SALINE 100 ML IV SCH ×2 (06:23→17:13)
[2018-10-01 06:30] LABS: ARTERIAL BLOOD FIO2 4L
--- NOTE | 2018-10-01 07:21 | RADIOLOGY REPORT (SQ) ---
EXAM DESCRIPTION: X-ray single view chest. CLINICAL HISTORY: 63 years Male, RESPIRTORY FAILURE PATIENT ON VENT COMPARISON: 09/30/2018 and 09/29/2018 TECHNIQUE: Single portable x-ray view of the chest performed on 10/01/2018 at 6:18 AM FINDINGS: The lungs are well expanded. There is persistent improving aeration of the lungs when compared to the prior studies. There is mild residual opacification of the left inferior hemithorax which may be due to atelectasis or inflammatory changes. The remainder of the lungs are clear. There is no evidence of a pneumothorax. The cardiac silhouette is stable and prominent The mediastinal contours are normal. No acute osseous abnormality is identified. No focal soft tissue abnormalities are seen. Lines and tubes: The right IJ central venous catheter, feeding tube and left subclavian bipolar pacemaker are grossly stable. IMPRESSION: 1. Continued improving aeration of the lungs when compared to the prior studies with mild residual volume loss in the left lung base likely due to atelectasis or inflammatory changes. 2. Stable life support lines and tubes.
[2018-10-01] MEDS: HEPARIN SODIUM,PORCINE/D5W 25,000 UNIT/250 ML RTUINJ IV PRN ×2 (07:23→17:17)
--- NOTE | 2018-10-01 07:35 | PDOC PROGRESS REPORT ---
Subjective Progress Note for:: 10/01/18 Subjective:: s/p ilealcectectomy Reason For Visit: ACUTE KIDNEY INJURY,PAROXYSMAL ATRIAL FIBRILLATION Physical Exam Vital Signs: Temp Pulse Resp BP Pulse Ox 100.6 F H 75 13 160/84 H 93 10/01/18 03:24 09/30/18 22:00 10/01/18 06:00 10/01/18 05:57 10/01/18 06:00 Intake & Output 09/30/18 10/01/18 10/02/18 06:59 06:59 06:59 Intake Total 2501 2005 Output Total 0132 0309 Balance -6782 -6437 Weight 131.6 kg 128.2 kg General appearance: PRESENT: no acute distress, mild distress Head exam: PRESENT: normocephalic Eye exam: PRESENT: conjunctiva pink, other - pt confused, does not respond to commands Respiratory exam: PRESENT: crackles Cardiovascular exam: PRESENT: RRR Pulses: PRESENT: normal radial pulses, normal femoral pulses Vascular exam: PRESENT: normal capillary refill GI/Abdominal exam: PRESENT: normal bowel sounds, soft Rectal exam: PRESENT: deferred Musculoskeletal exam: PRESENT: normal inspection Neurological exam: PRESENT: altered Results Laboratory Results: 10/01/18 03:50 10/01/18 03:50 09/30/18 10/01/18 10/01/18 14:02 03:50 03:50 WBC RBC Hgb Hct MCV MCH MCHC RDW Plt Count Carbonic Acid 1.42 H HCO3/H2CO3 Ratio 20:1 ABG pH 7.41 ABG pCO2 47.2 H ABG pO2 110.7 H ABG HCO3 29.4 H ABG O2 Saturation 98.1 H ABG Base Excess 4.1 FiO2 4L Sodium 147.7 H 148.4 H Potassium 3.9 3.7 Chloride 111 H 110 H Carbon Dioxide 32 H 33 H Anion Gap 5 5 BUN 16 17 Creatinine 1.34 H 1.31 H Est GFR ( Amer) > 60 > 60 Est GFR (Non-Af Amer) 54 L 55 L Glucose 118 H 120 H Calcium 8.5 8.4 10/01/18 03:50 WBC 10.9 H RBC 4.03 L Hgb 10.8 L Hct 33.0 L MCV 82 MCH 26.7 L MCHC 32.6 RDW 16.3 H Plt Count 308 Carbonic Acid HCO3/H2CO3 Ratio ABG pH ABG pCO2 ABG pO2 ABG HCO3 ABG O2 Saturation ABG Base Excess FiO2 Sodium Potassium Chloride Carbon Dioxide Anion Gap BUN Creatinine Est GFR ( Amer) Est GFR (Non-Af Amer) Glucose Calcium 09/15/18 09/15/18 09/15/18 07:07 13:30 13:30 Creatine Kinase 261 H CK-MB (CK-2) 1.63 Troponin I 0.015 0.021 NT-Pro-B Natriuret Pep 239 09/15/18 09/15/18 09/17/18 20:35 20:35 09:48 Creatine Kinase 855 H 1250 H CK-MB (CK-2) 6.56 H Troponin I 0.022 NT-Pro-B Natriuret Pep 09/17/18 09/22/18 09/27/18 09:48 03:15 04:21 Creatine Kinase CK-MB (CK-2) 3.91 Troponin I < 0.012 0.041 NT-Pro-B Natriuret Pep 978 H Impressions: Renal Ultrasound 09/15/18 00:00 IMPRESSION: No evidence hydronephrosis. Small Bowel X-Ray 09/18/18 00:00 IMPRESSION: 1. At 3 hours, much of the contrast remains in the stomach. If clinically feasible, consider positioning patient on the right side to facilitate emptying of the stomach and better opacification of the small bowel. If this can be done, consider additional follow-up radiographs in several hours. 2. There is a small amount of contrast in several distended small bowel segments, likely small bowel obstruction. However, there is not adequate opacification to determine the transition point. Abdomen/Pelvis CT 09/23/18 00:00 IMPRESSION: Postsurgical changes of midline laparotomy. Additional mild inflammatory stranding about the right lower quadrant mesentery as well as amorphous fluid within the mid abdomen are also likely postsurgical in etiology. Otherwise, no acute abnormality within the abdomen or pelvis is identified. Bibasilar consolidation. Consider atelectasis or pneumonia to include aspiration. Hyperdensity within the gallbladder lumen either indicates vicarious excretion of previously administered contrast material or sludge/stones. TECHNICAL DOCUMENTATION: Quality ID # 436: Final reports with documentation of one or more dose reduction techniques (e.g., Automated exposure control, adjustment of the mA and/or kV according to patient size, use of iterative reconstruction technique) copyright 2010 [employer]- All Rights Reserved Head CT 09/30/18 00:00 IMPRESSION: 1. No significant interval changes since the prior examination dated 11/30/2017. No acute intracranial abnormality. EVIDENCE OF ACUTE STROKE: NO. KUB X-Ray 09/30/18 14:23 IMPRESSION: Ileus. Chest X-Ray 10/01/18 06:00 IMPRESSION: 1. Continued improving aeration of the lungs when compared to the prior studies with mild residual volume loss in the left lung base likely due to atelectasis or inflammatory changes. 2. Stable life support lines and tubes. Assessment & Plan - Plan Summary Plan Summary: s/p ilealcecectomy for necrotic terminal ileum prolonged intubation and renal failure now with some improvement of renal function extuated, still confused recent kub shows air in colon some return of bowel function ng not on suction with min residuals passing flatus plan cont icu care will restart tube feeding
[2018-10-01] MEDS: FUROSEMIDE 40 MG TABLET PO SCH (08:13)
[2018-10-01] MEDS: PANTOPRAZOLE SODIUM 40 MG PACKET.DR NG SCH ×2 (08:14→15:59)
[2018-10-01 08:41] LABS: APPEARANCE,URINE SLIGHTLY-CLOUDY; BILIRUBIN,URINE NEGATIVE (NEGATIVE); COLOR,URINE YELLOW; GLUCOSE, URINE NEGATIVE (NEGATIVE); KETONES,URINE NEGATIVE (NEGATIVE); LEUKOCYTE ESTERASE,URINE NEGATIVE (NEGATIVE); NITRITE,URINE NEGATIVE (NEGATIVE); PROTEIN,URINE 30 mg/dL (NEGATIVE); URINE SPECIFIC GRAVITY 1.016
[2018-10-01] MEDS: GUAIFENESIN SYRP 200 MG/10 ML UDC PO SCH ×2 (09:37→22:05)
[2018-10-01] MEDS: DOCUSATE SODIUM 100 MG/10 ML UDC PO SCH ×2 (09:37→17:13)
[2018-10-01] MEDS: AMIODARONE HCL 200 MG TABLET NG SCH ×2 (09:38→22:06)
[2018-10-01] MEDS: METOPROLOL TARTRATE 50 MG TABLET NG SCH ×2 (09:38→22:05)
[2018-10-01] MEDS: BENZTROPINE MESYLATE 1 MG TABLET NG SCH ×2 (09:38→22:05)
[2018-10-01] MEDS: PAROXETINE HCL 20 MG TABLET NG SCH (09:38)
[2018-10-01] MEDS: CLONAZEPAM 1 MG TABLET NG SCH ×2 (09:38→22:06)
[2018-10-01] MEDS: MAGNESIUM OXIDE 400 MG TABLET NG SCH (09:38)
[2018-10-01] MEDS: CYANOCOBALAMIN (VITAMIN B-12) 1,000 MCG TABLET NG SCH (09:39)
[2018-10-01] MEDS: HYDROMORPHONE HCL INJ/PF 2 MG/ML AMPULE IV PRN (14:11)
[2018-10-01] MEDS: NORMAL SALINE 1000 ML 1,000 ML IV PRN (15:59)
--- NOTE | 2018-10-01 20:00 | Progress Note ---
Provider Note Provider Note: CARDIOLOGY PROGRESS NOTE by Dr. Ana Dawn on 10/01/2018. SUBJECTIVE: The patient still awake but nonverbal. He seems to be slightly/minimally less drowsy. He moves all 4 extremities. He remains in sinus rhythm with no recurrence of atrial flutter. There is no ventricular arrhythmia seen on the monitor there is no firing of his as CD. PHYSICAL EXAMINATION: The patient is morbidly obese. He is in no acute distress. Selected Entries 10/01/18 10/01/18 10/01/18 11:13 11:57 11:58 Temperature Temperature Source Pulse Rate Heart Rate ( 66 Monitors) Respiratory 28 H Rate Blood Pressure 123/85 Blood Pressure [Left Upper Arm ] Blood Pressure 97 Mean Blood Pressure Mean [Left Upper Arm] Blood Pressure Position [Left Upper Arm] O2 Sat by Pulse 100 Oximetry Oxygen Delivery Method ( includes room air) Fraction of 40 Inspired Oxygen (FIO2) Oxygen Flow 5 Rate 10/01/18 12:00 Temperature 99.6 F Temperature Axillary Source Pulse Rate 67 Heart Rate ( Monitors) Respiratory Rate Blood Pressure Blood Pressure 123/85 [Left Upper Arm ] Blood Pressure Mean Blood Pressure 97 Mean [Left Upper Arm] Blood Pressure Supine Position [Left Upper Arm] O2 Sat by Pulse 99 Oximetry Oxygen Delivery Nasal Cannula Method ( includes room air) Fraction of Inspired Oxygen (FIO2) Oxygen Flow Rate HEAD: Is atraumatic normocephalic. EYES: Pupils are equal round regular reactive light accommodation. Extraocular movements are normal. There is no conjunctival pallor. There is no scleral icterus. EARS: Tympanic memories are intact. External auditory canals are clear. NOSE: There is no deviated nasal septum. There is no inflammation of the nasal mucous membrane. MOUTH: Mucous membranes of mouth are moist. Tongue is moist. There is no ulcers there is no bleeding from the gums. Throat: There is no redness of the oropharynx. There is no exudates. SKIN: There is no skin rashes or skin lesions. There is no petechia or ecchymosis. NECK: Supple. There is no JVD. Carotids are equal there is no bruit. There is no accessory muscles of respiration use. Trachea central. LUNGS: There is diminished air entry prolonged expiration. There is a few scattered rhonchi. There is no wheezing or rales. On percussion there is hyperresonance. On palpation there is no chest wall tenderness. HEART: S1-S2 is heard S1 is of normal intensity. There is no S3 gallop there is no S4 gallop. There is systolic murmur left sternal border and the apex there is no rub. ABDOMEN: Is soft. The dressing is dry and clean. There is no hepatosplenomegaly. Bowel sounds are absent. EXTREMITIES: Femorals are diminished there is no femoral bruits. Leg pulses are diminished. There is no pedal edema, and no evidence MACHINIST MATE: The patient is conscious awake, and nonverbal. Cannot assess the patient's orientation to person place or time.. There is no focal deficits, she is able to move all 4 extremities.. PSYCHIATRIC: In-depth psychiatric examination not done. The patient does not appear to be anxious or agitated Labs- All tests 24 hr 10/01/18 10/01/18 10/01/18 03:50 03:50 03:50 WBC 10.9 H RBC 4.03 L Hgb 10.8 L Hct 33.0 L MCV 82 MCH 26.7 L MCHC 32.6 RDW 16.3 H Plt Count 308 APTT Carbonic Acid 1.42 H HCO3/H2CO3 Ratio 20:1 ABG pH 7.41 ABG pCO2 47.2 H ABG pO2 110.7 H ABG HCO3 29.4 H ABG Total CO2 30.9 H ABG O2 Saturation 98.1 H ABG Base Excess 4.1 FiO2 4L Sodium 148.4 H Potassium 3.7 Chloride 110 H Carbon Dioxide 33 H Anion Gap 5 BUN 17 Creatinine 1.31 H Est GFR ( Amer) > 60 Est GFR (Non-Af Amer) 55 L Glucose 120 H Calcium 8.4 Urine Color Urine Appearance Urine pH Ur Specific [place] Urine Protein Urine Glucose (UA) Urine Ketones Urine Blood Urine Nitrite Urine Bilirubin Urine Urobilinogen Ur Leukocyte Esterase Urine WBC (Auto) Urine RBC (Auto) U Hyaline Cast (Auto) Squamous Epi Cells Auto Urine Mucus (Auto) Urine Ascorbic Acid 10/01/18 10/01/18 10/01/18 03:50 03:50 13:41 WBC RBC Hgb Hct MCV MCH MCHC RDW Plt Count APTT 114.7 H 105.6 H Carbonic Acid HCO3/H2CO3 Ratio ABG pH ABG pCO2 ABG pO2 ABG HCO3 ABG Total CO2 ABG O2 Saturation ABG Base Excess FiO2 Sodium Potassium Chloride Carbon Dioxide Anion Gap BUN Creatinine Est GFR ( Amer) Est GFR (Non-Af Amer) Glucose Calcium Urine Color YELLOW Urine Appearance SLIGHTLY-CLOUDY Urine pH 5.0 Ur Specific [place] 1.016 Urine Protein 30 H Urine Glucose (UA) NEGATIVE Urine Ketones NEGATIVE Urine Blood LARGE H Urine Nitrite NEGATIVE Urine Bilirubin NEGATIVE Urine Urobilinogen 4.0 H Ur Leukocyte Esterase NEGATIVE Urine WBC (Auto) 5 Urine RBC (Auto) 165 U Hyaline Cast (Auto) 8 Squamous Epi Cells Auto 3 Urine Mucus (Auto) RARE Urine Ascorbic Acid NEGATIVE Renal Ultrasound 09/15/18 00:00 IMPRESSION: No evidence hydronephrosis. Chest X-Ray 09/15/18 07:05 IMPRESSION: No acute disease. Abdomen/Pelvis CT 09/15/18 08:37 IMPRESSION: 1. There is a focal area of inflammatory changes associated with the bowel just to the left of the midline as described. Possible diverticulitis. 2. Considerable fluid is present in the bowel. Cannot exclude an enteritis. Abdomen/Pelvis CT 09/17/18 00:00 IMPRESSION: Small bowel obstruction Chest X-Ray 09/17/18 00:00 IMPRESSION: 1. MINIMAL LINEAR LEFT BASILAR OPACITIES LIKELY ATELECTASIS. 2. ENTERIC TUBE TIP LIKELY OVERLIES PROXIMAL STOMACH ALTHOUGH EVALUATION LIMITED. SIDE PORT NOT IDENTIFIED. KUB X-Ray 09/17/18 00:00 IMPRESSION: Small bowel obstruction. NG tube placement. Small Bowel X-Ray 09/18/18 00:00 IMPRESSION: 1. At 3 hours, much of the contrast remains in the stomach. If clinically feasible, consider positioning patient on the right side to facilitate emptying of the stomach and better opacification of the small bowel. If this can be done, consider additional follow-up radiographs in several hours. 2. There is a small amount of contrast in several distended small bowel segments, likely small bowel obstruction. However, there is not adequate opacification to determine the transition point. KUB X-Ray 09/19/18 00:00 IMPRESSION: Small bowel obstruction. KUB X-Ray 09/20/18 00:00 IMPRESSION: Stomach decompressed by nasogastric tube. Persistent gaseous distention of small bowel out of proportion to colon from small bowel obstruction Chest X-Ray 09/21/18 00:00 IMPRESSION: Endotracheal tube above the idalia Basilar opacity which is in part due to overlying soft tissue artifact . Suspect small effusions are present Abdomen/Pelvis CT 09/23/18 00:00 IMPRESSION: Postsurgical changes of midline laparotomy. Additional mild inflammatory stranding about the right lower quadrant mesentery as well as amorphous fluid within the mid abdomen are also likely postsurgical in etiology. Otherwise, no acute abnormality within the abdomen or pelvis is identified. Bibasilar consolidation. Consider atelectasis or pneumonia to include aspiration. Hyperdensity within the gallbladder lumen either indicates vicarious excretion of previously administered contrast material or sludge/stones. TECHNICAL DOCUMENTATION: Quality ID # 436: Final reports with documentation of one or more dose reduction techniques (e.g., Automated exposure control, adjustment of the mA and/or kV according to patient size, use of iterative reconstruction technique) copyright 2011 [employer]- All Rights Reserved Chest X-Ray 09/23/18 06:00 IMPRESSION: No significant change. Chest X-Ray 09/23/18 23:50 IMPRESSION: Interval line/tube modification. Chest X-Ray 09/24/18 00:00 IMPRESSION: Life lines as described. Airspace disease in the left lower lobe. Atelectasis versus pneumonia. Chest X-Ray 09/25/18 00:00 IMPRESSION: Bibasilar atelectatic changes. Endotracheal tube appears high, above the thoracic inlet. Chest X-Ray 09/25/18 00:00 IMPRESSION: Endotracheal tube now in appropriate position. Chest X-Ray 09/26/18 06:00 IMPRESSION: Worsening bibasilar pneumonia. Chest X-Ray 09/27/18 00:00 IMPRESSION: STABLE APPEARANCE OF THE CHEST. Chest X-Ray 09/27/18 06:00 IMPRESSION: NO CHANGE IN APPEARANCE OF THE CHEST. Chest X-Ray 09/28/18 06:00 IMPRESSION: No significant change. Chest X-Ray 09/29/18 06:00 IMPRESSION: No significant change. Head CT 09/30/18 00:00 IMPRESSION: 1. No significant interval changes since the prior examination dated 11/30/2017. No acute intracranial abnormality. EVIDENCE OF ACUTE STROKE: NO. Chest X-Ray 09/30/18 06:00 IMPRESSION: 1. Improving aeration of the lungs when compared to the prior studies. 2. There has been interval removal of the endotracheal tube. 3. Remaining life support lines and tubes are grossly stable. KUB X-Ray 09/30/18 14:23 IMPRESSION: Ileus. Chest X-Ray 10/01/18 06:00 IMPRESSION: 1. Continued improving aeration of the lungs when compared to the prior studies with mild residual volume loss in the left lung base likely due to atelectasis or inflammatory changes. 2. Stable life support lines and tubes. Impression/Recommendation:. 1. . Acute respiratory failure hypoxemic: Continue to ventilator support and continue oxygen and respiratory treatments. There is resolved. The patient is on BiPAP after extubation. 2. Status post acute abdomen, status post laparotomy and ileectomy for small bowel obstruction. Continue IV fluids continue antibiotics. At present patient on ventilator continue ventilator support. The patient still not amenable. 3 Paroxysmal atrial fibrillation. Continue amiodarone at 200 mg via p.o. every 12 hours. The patient's liver function tests are normal. Note that the patient's pH is slightly elevated, as also has a T4. Hence we will recheck the patient's TSH in 2 to 3 days. 4. Lower extremity DVT: Patient is on IV heparin. Consider switching to oral anticoagulant . 5. Acute renal failure/injury: Nephrology on the case. This is improved the patient's GFR now is 57 mL which is chronic kidney disease stage III. 6. Hypertension: Blood pressure stable. Earlier the patient was hypotensive with systolic pressure of blood pressure in the 90s requiring emergent cardioversion of the atrial fibrillation with rapid ventricular response. Subsequently the patient blood pressure now is stable. 7. Coronary artery disease: Patient stable with no anginal symptoms, in spite of the patient having atrial fibrillation with rapid ventricular response. Also the patient has no evidence of non-ST elevation MN, so far. Recheck EKG and troponin I in the morning. 8. History of asthma/COPD: Continue anti-COPD treatment. At present no signs of acute exacerbation of COPD. This seems to have resolved back to baseline. 9. Obstructive sleep apnea: Continue BiPAP instructed patient the importance of using BiPAP. 10. Cardiomyopathy: No evidence of heart failure. Note his last LV ejection fraction was within normal limits. 11. AICD placement: No firing of AICD. Note that the AICD was interrogated and data sent remotely to the [employer]. The pacemaker function is normal. There is been no recent AICD shocks. 12. History of depression schizoaffective disorder and posttraumatic stress disorder. 13. Altered mental status? Cause.There is no evidence of CVA by CT of Head. 14. Morbid obesity. Medications reviewed. Medications adjusted. Management plan discussed with Dr. Ayala. Medical decision making is of moderate complexity. 40 minutes spent on this patient with more than 50% time spent in direct patient care.
[2018-10-01] MEDS: ATORVASTATIN CALCIUM 80 MG TABLET NG SCH (22:05)
[2018-10-01] MEDS: ARIPIPRAZOLE 5 MG TABLET NG SCH (22:06)
--- NOTE | 2018-10-01 22:49 | PDOC PROGRESS REPORT ---
Subjective Progress Note for:: 10/01/18 Subjective:: Patient is alert more responsive had a BM today Reason For Visit: ACUTE KIDNEY INJURY,PAROXYSMAL ATRIAL FIBRILLATION Physical Exam Vital Signs: Temp Pulse Resp BP Pulse Ox 100 F 69 16 160/81 H 100 10/01/18 21:58 10/01/18 22:00 10/01/18 22:00 10/01/18 21:58 10/01/18 22:00 Intake & Output 09/30/18 10/01/18 10/02/18 06:59 06:59 06:59 Intake Total 2431 3006 473 Output Total 4187 0573 1165 Balance -1754 -924 -692 Weight 131.6 kg 128.2 kg General appearance: PRESENT: no acute distress Eye exam: PRESENT: PERRLA Respiratory exam: PRESENT: clear to auscultation martita Cardiovascular exam: PRESENT: +S1 GI/Abdominal exam: PRESENT: soft Neurological exam: PRESENT: alert Results Laboratory Results: 10/01/18 03:50 10/01/18 03:50 10/01/18 10/01/18 10/01/18 03:50 03:50 03:50 WBC 10.9 H RBC 4.03 L Hgb 10.8 L Hct 33.0 L MCV 82 MCH 26.7 L MCHC 32.6 RDW 16.3 H Plt Count 308 Carbonic Acid 1.42 H HCO3/H2CO3 Ratio 20:1 ABG pH 7.41 ABG pCO2 47.2 H ABG pO2 110.7 H ABG HCO3 29.4 H ABG O2 Saturation 98.1 H ABG Base Excess 4.1 FiO2 4L Sodium 148.4 H Potassium 3.7 Chloride 110 H Carbon Dioxide 33 H Anion Gap 5 BUN 17 Creatinine 1.31 H Est GFR ( Amer) > 60 Est GFR (Non-Af Amer) 55 L Glucose 120 H Calcium 8.4 Urine Color Urine Appearance Urine pH Ur Specific [place] Urine Protein Urine Glucose (UA) Urine Ketones Urine Blood Urine Nitrite Ur Leukocyte Esterase Urine WBC (Auto) Urine RBC (Auto) 10/01/18 03:50 WBC RBC Hgb Hct MCV MCH MCHC RDW Plt Count Carbonic Acid HCO3/H2CO3 Ratio ABG pH ABG pCO2 ABG pO2 ABG HCO3 ABG O2 Saturation ABG Base Excess FiO2 Sodium Potassium Chloride Carbon Dioxide Anion Gap BUN Creatinine Est GFR ( Amer) Est GFR (Non-Af Amer) Glucose Calcium Urine Color YELLOW Urine Appearance SLIGHTLY-CLOUDY Urine pH 5.0 Ur Specific [place] 1.016 Urine Protein 30 H Urine Glucose (UA) NEGATIVE Urine Ketones NEGATIVE Urine Blood LARGE H Urine Nitrite NEGATIVE Ur Leukocyte Esterase NEGATIVE Urine WBC (Auto) 5 Urine RBC (Auto) 165 09/15/18 09/15/18 09/15/18 07:07 13:30 13:30 Creatine Kinase 261 H CK-MB (CK-2) 1.63 Troponin I 0.015 0.021 NT-Pro-B Natriuret Pep 239 09/15/18 09/15/18 09/17/18 20:35 20:35 09:48 Creatine Kinase 855 H 1250 H CK-MB (CK-2) 6.56 H Troponin I 0.022 NT-Pro-B Natriuret Pep 09/17/18 09/22/18 09/27/18 09:48 03:15 04:21 Creatine Kinase CK-MB (CK-2) 3.91 Troponin I < 0.012 0.041 NT-Pro-B Natriuret Pep 978 H Impressions: Renal Ultrasound 09/15/18 00:00 IMPRESSION: No evidence hydronephrosis. Small Bowel X-Ray 09/18/18 00:00 IMPRESSION: 1. At 3 hours, much of the contrast remains in the stomach. If clinically feasible, consider positioning patient on the right side to facilitate emptying of the stomach and better opacification of the small bowel. If this can be done, consider additional follow-up radiographs in several hours. 2. There is a small amount of contrast in several distended small bowel segments, likely small bowel obstruction. However, there is not adequate opacification to determine the transition point. Abdomen/Pelvis CT 09/23/18 00:00 IMPRESSION: Postsurgical changes of midline laparotomy. Additional mild inflammatory stranding about the right lower quadrant mesentery as well as amorphous fluid within the mid abdomen are also likely postsurgical in etiology. Otherwise, no acute abnormality within the abdomen or pelvis is identified. Bibasilar consolidation. Consider atelectasis or pneumonia to include aspiration. Hyperdensity within the gallbladder lumen either indicates vicarious excretion of previously administered contrast material or sludge/stones. TECHNICAL DOCUMENTATION: Quality ID # 436: Final reports with documentation of one or more dose reduction techniques (e.g., Automated exposure control, adjustment of the mA and/or kV according to patient size, use of iterative reconstruction technique) copyright 2010 [employer]- All Rights Reserved Head CT 09/30/18 00:00 IMPRESSION: 1. No significant interval changes since the prior examination dated 11/30/2017. No acute intracranial abnormality. EVIDENCE OF ACUTE STROKE: NO. KUB X-Ray 09/30/18 14:23 IMPRESSION: Ileus. Chest X-Ray 10/01/18 06:00 IMPRESSION: 1. Continued improving aeration of the lungs when compared to the prior studies with mild residual volume loss in the left lung base likely due to atelectasis or inflammatory changes. 2. Stable life support lines and tubes. Assessment & Plan - Diagnosis (1) Acute kidney injury Is this a current diagnosis for this admission?: Yes (2) Atrial fibrillation with RVR Is this a current diagnosis for this admission?: Yes (3) Morbid obesity due to excess calories Is this a current diagnosis for this admission?: Yes (4) Hypotension Qualifiers: Hypotension type: unspecified hypotension type Qualified Code(s): I95.9 - Hypotension, unspecified Is this a current diagnosis for this admission?: Yes (5) Small bowel obstruction Is this a current diagnosis for this admission?: Yes (6) Hypernatremia Is this a current diagnosis for this admission?: Yes (7) Respiratory failure Qualifiers: Chronicity: unspecified Respiratory failure complication: unspecified whether with hypoxia or hypercapnia Qualified Code(s): J96.90 - Respiratory failure, unspecified, unspecified whether with hypoxia or hypercapnia Is this a current diagnosis for this admission?: Yes (8) Sepsis following intra-abdominal surgery Is this a current diagnosis for this admission?: Yes (9) Deep vein thrombosis (DVT) of proximal vein of right lower extremity Qualifiers: Chronicity: acute Qualified Code(s): I82.4Y1 - Acute embolism and thrombosis of unspecified deep veins of right proximal lower extremity Is this a current diagnosis for this admission?: Yes (10) Ileitis, terminal Qualifiers: Digestive disease complication type: with abscess Qualified Code(s): K50.014 - Crohn's disease of small intestine with abscess Is this a current diagnosis for this admission?: Yes (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
[2018-10-02] MEDS: IMIPENEM/CILASTATIN SODIUM 250 MG in NORMAL SALINE 100 ML IV SCH ×2 (05:09→17:57)
[2018-10-02 05:50] LABS: ARTERIAL BLOOD BASE EXCESS 6.9 mmol/L; ARTERIAL BLOOD H2CO3 1.66 mmol/L (1.05-1.35); ARTERIAL BLOOD HCO3 33.3 mmol/L (20-24); ARTERIAL BLOOD O2 SATURATION 98.2 % (94-98); ARTERIAL BLOOD PO2 117.2 mmHg (80-100)
[2018-10-02 05:51] LABS: ARTERIAL BLOOD FIO2 4L
[2018-10-02 06:08] LABS: BLOOD UREA NITROGEN 17 mg/dL (7-20); CALCIUM 8.4 mg/dL (8.4-10.2); GLUCOSE 109 mg/dL (75-110); POTASSIUM 3.6 mmol/L (3.6-5.0)
[2018-10-02 06:13] LABS: CARBON DIOXIDE 34 mmol/L (22-30); CHLORIDE 112 mmol/L (98-107); SODIUM 148.8 mmol/L (137-145)
[2018-10-02 06:14] LABS: ANION GAP 3 (5-19)
--- NOTE | 2018-10-02 06:45 | RADIOLOGY REPORT (SQ) ---
EXAM DESCRIPTION: XR CHEST 1 VIEW COMPLETED DATE/TME: 10/02/2018 06:00 CLINICAL HISTORY: 63 years, Male, RESPIRATORY FAILURE PATIENT ON VENT COMPARISON: 10/01/2018 chest NUMBER OF VIEWS: 1 TECHNIQUE: Portable chest LIMITATIONS: None. FINDINGS: Stable cardiomegaly. Grossly stable indwelling lines and catheters. No pneumothorax. Mild pulmonary vascular congestion. IMPRESSION: Development of mild pulmonary vascular congestion. Other findings are stable copyright 2010 [employer]- All Rights Reserved
[2018-10-02] MEDS: HEPARIN SODIUM,PORCINE/D5W 25,000 UNIT/250 ML RTUINJ IV PRN (07:40)
[2018-10-02] MEDS: PANTOPRAZOLE SODIUM 40 MG PACKET.DR NG SCH ×2 (07:43→17:53)
[2018-10-02] MEDS: FUROSEMIDE 40 MG TABLET PO SCH (07:43)
[2018-10-02] MEDS: METOPROLOL TARTRATE 50 MG TABLET NG SCH ×2 (10:01→21:28)
[2018-10-02] MEDS: AMIODARONE HCL 200 MG TABLET NG SCH ×2 (10:01→21:28)
[2018-10-02] MEDS: BENZTROPINE MESYLATE 1 MG TABLET NG SCH ×2 (10:01→21:28)
[2018-10-02] MEDS: CYANOCOBALAMIN (VITAMIN B-12) 1,000 MCG TABLET NG SCH (10:01)
[2018-10-02] MEDS: PAROXETINE HCL 20 MG TABLET NG SCH (10:01)
[2018-10-02] MEDS: CLONAZEPAM 1 MG TABLET NG SCH ×2 (10:01→21:28)
[2018-10-02] MEDS: GUAIFENESIN SYRP 200 MG/10 ML UDC PO SCH ×2 (10:02→21:28)
[2018-10-02] MEDS: DOCUSATE SODIUM 100 MG/10 ML UDC PO SCH ×3 (10:02→17:53)
[2018-10-02] MEDS: MAGNESIUM OXIDE 400 MG TABLET NG SCH (10:02)
[2018-10-02] MEDS: NORMAL SALINE 1000 ML 1,000 ML IV PRN (14:24)
[2018-10-02] MEDS ORDERED: METOCLOPRAMIDE HCL INJ/PF 10 MG/2 ML SDV IV SCH (18:00)
[2018-10-02] MEDS: ARIPIPRAZOLE 5 MG TABLET NG SCH (21:28)
[2018-10-02] MEDS: ATORVASTATIN CALCIUM 80 MG TABLET NG SCH (21:28)
--- NOTE | 2018-10-02 22:30 | PDOC PROGRESS REPORT ---
Subjective Progress Note for:: 10/02/18 Subjective:: Patient continues to improve slowly, he had a bowel movement Reason For Visit: ACUTE KIDNEY INJURY,PAROXYSMAL ATRIAL FIBRILLATION Physical Exam Vital Signs: Temp Pulse Resp BP Pulse Ox 99.3 F 60 19 136/76 H 100 10/02/18 20:00 10/02/18 22:00 10/02/18 22:00 10/02/18 21:58 10/02/18 22:00 Intake & Output 10/01/18 10/02/18 10/03/18 06:59 06:59 06:59 Intake Total 3006 1926 270 Output Total 3930 1890 1180 Balance -924 36 -910 Weight 128.2 kg 126.8 kg General appearance: PRESENT: no acute distress Eye exam: PRESENT: PERRLA Respiratory exam: PRESENT: clear to auscultation martita Cardiovascular exam: PRESENT: +S1, +S2 GI/Abdominal exam: PRESENT: soft Neurological exam: PRESENT: alert Results Laboratory Results: 10/01/18 03:50 10/02/18 05:35 10/02/18 10/02/18 05:35 05:35 Carbonic Acid 1.66 H HCO3/H2CO3 Ratio 20:1 ABG pH 7.40 ABG pCO2 55.0 H ABG pO2 117.2 H ABG HCO3 33.3 H ABG O2 Saturation 98.2 H ABG Base Excess 6.9 FiO2 4L Sodium 148.8 H Potassium 3.6 Chloride 112 H Carbon Dioxide 34 H Anion Gap 3 L BUN 17 Creatinine 1.16 Est GFR ( Amer) > 60 Est GFR (Non-Af Amer) > 60 Glucose 109 Calcium 8.4 09/15/18 09/15/18 09/15/18 07:07 13:30 13:30 Creatine Kinase 261 H CK-MB (CK-2) 1.63 Troponin I 0.015 0.021 NT-Pro-B Natriuret Pep 239 09/15/18 09/15/18 09/17/18 20:35 20:35 09:48 Creatine Kinase 855 H 1250 H CK-MB (CK-2) 6.56 H Troponin I 0.022 NT-Pro-B Natriuret Pep 09/17/18 09/22/18 09/27/18 09:48 03:15 04:21 Creatine Kinase CK-MB (CK-2) 3.91 Troponin I < 0.012 0.041 NT-Pro-B Natriuret Pep 978 H Impressions: Renal Ultrasound 09/15/18 00:00 IMPRESSION: No evidence hydronephrosis. Small Bowel X-Ray 09/18/18 00:00 IMPRESSION: 1. At 3 hours, much of the contrast remains in the stomach. If clinically feasible, consider positioning patient on the right side to facilitate emptying of the stomach and better opacification of the small bowel. If this can be done, consider additional follow-up radiographs in several hours. 2. There is a small amount of contrast in several distended small bowel segments, likely small bowel obstruction. However, there is not adequate opacification to determine the transition point. Abdomen/Pelvis CT 09/23/18 00:00 IMPRESSION: Postsurgical changes of midline laparotomy. Additional mild inflammatory stranding about the right lower quadrant mesentery as well as amorphous fluid within the mid abdomen are also likely postsurgical in etiology. Otherwise, no acute abnormality within the abdomen or pelvis is identified. Bibasilar consolidation. Consider atelectasis or pneumonia to include aspiration. Hyperdensity within the gallbladder lumen either indicates vicarious excretion of previously administered contrast material or sludge/stones. TECHNICAL DOCUMENTATION: Quality ID # 436: Final reports with documentation of one or more dose reduction techniques (e.g., Automated exposure control, adjustment of the mA and/or kV according to patient size, use of iterative reconstruction technique) copyright 2010 [employer]- All Rights Reserved Head CT 09/30/18 00:00 IMPRESSION: 1. No significant interval changes since the prior examination da keith 11/30/2017. No acute intracranial abnormality. EVIDENCE OF ACUTE STROKE: NO. KUB X-Ray 09/30/18 14:23 IMPRESSION: Ileus. Chest X-Ray 10/02/18 06:00 IMPRESSION: Development of mild pulmonary vascular congestion. Other findings are stable copyright 2010 [employer]- All Rights Reserved Assessment & Plan - Diagnosis (1) Acute kidney injury Is this a current diagnosis for this admission?: Yes Plan: The kidney function continues to improve (2) Atrial fibrillation with RVR Is this a current diagnosis for this admission?: Yes (3) Morbid obesity due to excess calories Is this a current diagnosis for this admission?: Yes (4) Hypotension Qualifiers: Hypotension type: unspecified hypotension type Qualified Code(s): I95.9 - Hypotension, unspecified Is this a current diagnosis for this admission?: Yes (5) Small bowel obstruction Is this a current diagnosis for this admission?: Yes (6) Hypernatremia Is this a current diagnosis for this admission?: Yes (7) Respiratory failure Qualifiers: Chronicity: unspecified Respiratory failure complication: unspecified w hether with hypoxia or hypercapnia Qualified Code(s): J96.90 - Respiratory failure, unspecified, unspecified whether with hypoxia or hypercapnia Is this a current diagnosis for this admission?: Yes (8) Sepsis following intra-abdominal surgery Is this a current diagnosis for this admission?: Yes (9) Deep vein thrombosis (DVT) of proximal vein of right lower extremity Qualifiers: Chronicity: acute Qualified Code(s): I82.4Y1 - Acute embolism and thrombosis of unspecified deep veins of right proximal lower extremity Is this a current diagnosis for this admission?: Yes Plan: Continue IV heparin (10) Ileitis, terminal Qualifiers: Digestive disease complication type: with abscess Qualified Code(s): K 50.014 - Crohn's disease of small intestine with abscess Is this a current diagnosis for this admission?: Yes (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
[2018-10-03] MEDS: HEPARIN SODIUM,PORCINE/D5W 25,000 UNIT/250 ML RTUINJ IV PRN ×2 (00:46→14:45)
[2018-10-03 04:57] LABS: ARTERIAL BLOOD H2CO3 1.34 mmol/L (1.05-1.35); ARTERIAL BLOOD HCO3 31.6 mmol/L (20-24); ARTERIAL BLOOD PCO2 44.6 mmHg (35-45); ARTERIAL BLOOD PH 7.47 (7.35-7.45); ARTERIAL BLOOD PO2 103.8 mmHg (80-100); HEMATOCRIT 30.8 % (37.9-51.0); HEMOGLOBIN 10.1 g/dL (13.5-17.0); MEAN CORPUSCULAR HEMOGLOBIN 26.9 pg (27.0-33.4); MEAN CORPUSCULAR HGB CONC 32.7 g/dL (32.0-36.0); MEAN CORPUSCULAR VOLUME 82 fl (80-97); PLATELET COUNT 270 10^3/uL (150-450); RED BLOOD COUNT 3.74 10^6/uL (4.35-5.55); RED CELL DISTRIBUTION WIDTH 17.1 % (11.5-14.0); WHITE BLOOD COUNT 9.6 10^3/uL (4.0-10.5)
[2018-10-03 05:01] LABS: APPEARANCE,URINE SLIGHTLY-CLOUDY; BILIRUBIN,URINE NEGATIVE (NEGATIVE); COLOR,URINE YELLOW; GLUCOSE, URINE NEGATIVE (NEGATIVE); KETONES,URINE TRACE mg/dL (NEGATIVE); LEUKOCYTE ESTERASE,URINE NEGATIVE (NEGATIVE); NITRITE,URINE NEGATIVE (NEGATIVE); PROTEIN,URINE 30 mg/dL (NEGATIVE); URINE SPECIFIC GRAVITY 1.017; UROBILINOGEN,URINE NEGATIVE mg/dL (<2.0)
[2018-10-03 05:03] LABS: ARTERIAL BLOOD FIO2 28%
[2018-10-03 05:13] LABS: ANION GAP 5 (5-19); BLOOD UREA NITROGEN 17 mg/dL (7-20); CALCIUM 8.3 mg/dL (8.4-10.2); CARBON DIOXIDE 32 mmol/L (22-30); CHLORIDE 112 mmol/L (98-107); GLUCOSE 106 mg/dL (75-110); POTASSIUM 3.4 mmol/L (3.6-5.0); SODIUM 148.6 mmol/L (137-145)
[2018-10-03] MEDS: IMIPENEM/CILASTATIN SODIUM 250 MG in NORMAL SALINE 100 ML IV SCH (05:27)
--- NOTE | 2018-10-03 07:34 | PDOC PROGRESS REPORT ---
Subjective Progress Note for:: 10/03/18 Reason For Visit: ACUTE KIDNEY INJURY,PAROXYSMAL ATRIAL FIBRILLATION Physical Exam Vital Signs: Temp Pulse Resp BP Pulse Ox 98.9 F 60 15 147/85 H 100 10/03/18 04:00 10/02/18 22:00 10/03/18 06:00 10/03/18 05:58 10/03/18 06:00 Intake & Output 10/02/18 10/03/18 10/04/18 06:59 06:59 06:59 Intake Total 1926 730 Output Total 1890 1805 Balance 36 -1075 Weight 126.8 kg 125.9 kg General appearance: PRESENT: no acute distress Head exam: PRESENT: normocephalic Eye exam: PRESENT: EOMI Mouth exam: PRESENT: moist Neck exam: PRESENT: full ROM Respiratory exam: PRESENT: rhonchi Cardiovascular exam: PRESENT: RRR Pulses: PRESENT: normal radial pulses, normal femoral pulses Vascular exam: PRESENT: normal capillary refill GI/Abdominal exam: PRESENT: normal bowel sounds, soft Rectal exam: PRESENT: deferred Extremities exam: PRESENT: full ROM Musculoskeletal exam: PRESENT: full ROM Neurological exam: PRESENT: alert, awake, other - difficulty with aphasia, Psychiatric exam: PRESENT: anxious Focused psych exam: PRESENT: flight of ideas Skin exam: PRESENT: dry Results Laboratory Results: 10/03/18 04:50 10/03/18 04:50 10/03/18 10/03/18 10/03/18 04:50 04:50 04:50 WBC 9.6 RBC 3.74 L Hgb 10.1 L Hct 30.8 L MCV 82 MCH 26.9 L MCHC 32.7 RDW 17.1 H Plt Count 270 Carbonic Acid HCO3/H2CO3 Ratio ABG pH ABG pCO2 ABG pO2 ABG HCO3 ABG O2 Saturation ABG Base Excess FiO2 Sodium 148.6 H Potassium 3.4 L Chloride 112 H Carbon Dioxide 32 H Anion Gap 5 BUN 17 Creatinine 1.21 Est GFR ( Amer) > 60 Est GFR (Non-Af Amer) > 60 Glucose 106 Calcium 8.3 L Urine Color YELLOW Urine Appearance SLIGHTLY-CLOUDY Urine pH 5.0 Ur Specific [place] 1.017 Urine Protein 30 H Urine Glucose (UA) NEGATIVE Urine Ketones TRACE H Urine Blood MODERATE H Urine Nitrite NEGATIVE Ur Leukocyte Esterase NEGATIVE Urine WBC (Auto) 2 Urine RBC (Auto) 8 Stool Occult Blood 10/03/18 10/03/18 04:50 05:20 WBC RBC Hgb Hct MCV MCH MCHC RDW Plt Count Carbonic Acid 1.34 HCO3/H2CO3 Ratio 23:1 ABG pH 7.47 H ABG pCO2 44.6 ABG pO2 103.8 H ABG HCO3 31.6 H ABG O2 Saturation 98.0 ABG Base Excess 7.0 FiO2 28% Sodium Potassium Chloride Carbon Dioxide Anion Gap BUN Creatinine Est GFR ( Amer) Est GFR (Non-Af Amer) Glucose Calcium Urine Color Urine Appearance Urine pH Ur Specific [place] Urine Protein Urine Glucose (UA) Urine Ketones Urine Blood Urine Nitrite Ur Leukocyte Esterase Urine WBC (Auto) Urine RBC (Auto) Stool Occult Blood POSITIVE 09/15/18 09/15/18 09/15/18 07:07 13:30 13:30 Creatine Kinase 261 H CK-MB (CK-2) 1.63 Troponin I 0.015 0.021 NT-Pro-B Natriuret Pep 239 09/15/18 09/15/18 09/17/18 20:35 20:35 09:48 Creatine Kinase 855 H 1250 H CK-MB (CK-2) 6.56 H Troponin I 0.022 NT-Pro-B Natriuret Pep 09/17/18 09/22/18 09/27/18 09:48 03:15 04:21 Creatine Kinase CK-MB (CK-2) 3.91 Troponin I < 0.012 0.041 NT-Pro-B Natriuret Pep 978 H Impressions: Renal Ultrasound 09/15/18 00:00 IMPRESSION: No evidence hydronephrosis. Small Bowel X-Ray 09/18/18 00:00 IMPRESSION: 1. At 3 hours, much of the contrast remains in the stomach. If clinically feasible, consider positioning patient on the right side to facilitate emptying of the stomach and better opacification of the small bowel. If this can be done, consider additional follow-up radiographs in several hours. 2. There is a small amount of contrast in several distended small bowel segments, likely small bowel obstruction. However, there is not adequate opacification to determine the transition point. Abdomen/Pelvis CT 09/23/18 00:00 IMPRESSION: Postsurgical changes of midline laparotomy. Additional mild inflammatory stranding about the right lower quadrant mesentery as well as amorphous fluid within the mid abdomen are also likely postsurgical in etiology. Otherwise, no acute abnormality within the abdomen or pelvis is identified. Bibasilar consolidation. Consider atelectasis or pneumonia to include aspiration. Hyperdensity within the gallbladder lumen either indicates vicarious excretion of previously administered contrast material or sludge/stones. TECHNICAL DOCUMENTATION: Quality ID # 436: Final reports with documentation of one or more dose reduction techniques (e.g., Automated exposure control, adjustment of the mA and/or kV according to patient size, use of iterative reconstruction technique) copyright 2011 [employer]- All Rights Reserved Head CT 09/30/18 00:00 IMPRESSION: 1. No significant interval changes since the prior examination dated 11/30/2017. No acute intracranial abnormality. EVIDENCE OF ACUTE STROKE: NO. KUB X-Ray 09/30/18 14:23 IMPRESSION: Ileus. Assessment & Plan - Plan Summary Plan Summary: has return of bowel function now with dirrhea has feeding tube in place awaiting swallowing study before allowing po abd soft, wound dry
--- NOTE | 2018-10-03 08:45 | RADIOLOGY REPORT (SQ) ---
EXAM DESCRIPTION: CHEST SINGLE VIEW COMPLETED DATE/TIME: 10/03/2018 6:17 am REASON FOR STUDY: RESPIRTORY FAILURE PATIENT ON VENT COMPARISON: 10/02/2018 EXAM PARAMETERS: NUMBER OF VIEWS: One view. TECHNIQUE: Single frontal radiographic view of the chest acquired. RADIATION DOSE: NA LIMITATIONS: None. FINDINGS: Stable AP portable examination with cardiomegaly. No focal airspace opacity. Visualized support apparatus do not include endotracheal tube per stated indication of ventilation. IMPRESSION: Stable AP portable examination with cardiomegaly. No focal airspace opacity. Visualized support apparatus do not include endotracheal tube per stated indication of ventilation. TECHNICAL DOCUMENTATION: JOB ID: [id number] [employer]- All Rights Reserved Reading location - IP/workstation name: [email or web address]
[2018-10-03] MEDS: PANTOPRAZOLE SODIUM 40 MG PACKET.DR NG SCH ×2 (09:21→17:26)
[2018-10-03] MEDS: DOCUSATE SODIUM 100 MG/10 ML UDC PO SCH ×2 (09:21→17:26)
[2018-10-03] MEDS: GUAIFENESIN SYRP 200 MG/10 ML UDC PO SCH ×2 (09:21→21:46)
[2018-10-03] MEDS: FUROSEMIDE 40 MG TABLET PO SCH (09:22)
[2018-10-03] MEDS: AMIODARONE HCL 200 MG TABLET NG SCH ×2 (09:22→21:51)
[2018-10-03] MEDS: MAGNESIUM OXIDE 400 MG TABLET NG SCH (09:22)
[2018-10-03] MEDS: CLONAZEPAM 1 MG TABLET NG SCH ×2 (09:22→21:51)
[2018-10-03] MEDS: METOPROLOL TARTRATE 50 MG TABLET NG SCH ×2 (09:22→21:53)
[2018-10-03] MEDS: PAROXETINE HCL 20 MG TABLET NG SCH (09:23)
[2018-10-03] MEDS: CYANOCOBALAMIN (VITAMIN B-12) 1,000 MCG TABLET NG SCH (09:23)
[2018-10-03] MEDS: BENZTROPINE MESYLATE 1 MG TABLET NG SCH ×2 (09:23→21:51)
[2018-10-03] MEDS: NORMAL SALINE 1000 ML 1,000 ML IV PRN (13:27)
--- NOTE | 2018-10-03 16:18 | PDOC PROGRESS REPORT ---
Subjective Progress Note for:: 10/03/18 Subjective:: Patient is more responsive today, he was seen by speech, he did well with speech therapy, NG tube still in place Reason For Visit: ACUTE KIDNEY INJURY,PAROXYSMAL ATRIAL FIBRILLATION Physical Exam Vital Signs: Temp Pulse Resp BP Pulse Ox 99.6 F 60 35 H 147/81 H 97 10/03/18 12:00 10/03/18 12:00 10/03/18 14:00 10/03/18 13:59 10/03/18 14:00 Intake & Output 10/02/18 10/03/18 10/04/18 06:59 06:59 06:59 Intake Total 1926 1730 226 Output Total 1890 1805 375 Balance 36 -75 -149 Weight 126.8 kg 125.9 kg General appearance: PRESENT: no acute distress Eye exam: PRESENT: PERRLA Cardiovascular exam: PRESENT: +S1, +S2 GI/Abdominal exam: PRESENT: soft Neurological exam: PRESENT: alert Results Laboratory Results: 10/03/18 04:50 10/03/18 04:50 10/03/18 10/03/18 10/03/18 04:50 04:50 04:50 WBC 9.6 RBC 3.74 L Hgb 10.1 L Hct 30.8 L MCV 82 MCH 26.9 L MCHC 32.7 RDW 17.1 H Plt Count 270 Carbonic Acid HCO3/H2CO3 Ratio ABG pH ABG pCO2 ABG pO2 ABG HCO3 ABG O2 Saturation ABG Base Excess FiO2 Sodium 148.6 H Potassium 3.4 L Chloride 112 H Carbon Dioxide 32 H Anion Gap 5 BUN 17 Creatinine 1.21 Est GFR ( Amer) > 60 Est GFR (Non-Af Amer) > 60 Glucose 106 Calcium 8.3 L Urine Color YELLOW Urine Appearance SLIGHTLY-CLOUDY Urine pH 5.0 Ur Specific [place] 1.017 Urine Protein 30 H Urine Glucose (UA) NEGATIVE Urine Ketones TRACE H Urine Blood MODERATE H Urine Nitrite NEGATIVE Ur Leukocyte Esterase NEGATIVE Urine WBC (Auto) 2 Urine RBC (Auto) 8 Stool Occult Blood 10/03/18 10/03/18 04:50 05:20 WBC RBC Hgb Hct MCV MCH MCHC RDW Plt Count Carbonic Acid 1.34 HCO3/H2CO3 Ratio 23:1 ABG pH 7.47 H ABG pCO2 44.6 ABG pO2 103.8 H ABG HCO3 31.6 H ABG O2 Saturation 98.0 ABG Base Excess 7.0 FiO2 28% Sodium Potassium Chloride Carbon Dioxide Anion Gap BUN Creatinine Est GFR ( Amer) Est GFR (Non-Af Amer) Glucose Calcium Urine Color Urine Appearance Urine pH Ur Specific [place] Urine Protein Urine Glucose (UA) Urine Ketones Urine Blood Urine Nitrite Ur Leukocyte Esterase Urine WBC (Auto) Urine RBC (Auto) Stool Occult Blood POSITIVE 09/15/18 09/15/18 09/15/18 07:07 13:30 13:30 Creatine Kinase 261 H CK-MB (CK-2) 1.63 Troponin I 0.015 0.021 NT-Pro-B Natriuret Pep 239 09/15/18 09/15/18 09/17/18 20:35 20:35 09:48 Creatine Kinase 855 H 1250 H CK-MB (CK-2) 6.56 H Troponin I 0.022 NT-Pro-B Natriuret Pep 09/17/18 09/22/18 09/27/18 09:48 03:15 04:21 Creatine Kinase CK-MB (CK-2) 3.91 Troponin I < 0.012 0.041 NT-Pro-B Natriuret Pep 978 H Impressions: Renal Ultrasound 09/15/18 00:00 IMPRESSION: No evidence hydronephrosis. Small Bowel X-Ray 09/18/18 00:00 IMPRESSION: 1. At 3 hours, much of the contrast remains in the stomach. If clinically feasible, consider positioning patient on the right side to facilitate emptying of the stomach and better opacification of the small bowel. If this can be done, consider additional follow-up radiographs in several hours. 2. There is a small amount of contrast in several distended small bowel segments, likely small bowel obstruction. However, there is not adequate opacification to determine the transition point. Abdomen/Pelvis CT 09/23/18 00:00 IMPRESSION: Postsurgical changes of midline laparotomy. Additional mild inflammatory stranding about the right lower quadrant mesentery as well as amorphous fluid within the mid abdomen are also likely postsurgical in etiology. Otherwise, no acute abnormality within the abdomen or pelvis is identified. Bibasilar consolidation. Consider atelectasis or pneumonia to include aspiration. Hyperdensity within the gallbladder lumen either indicates vicarious excretion of previously administered contrast material or sludge/stones. TECHNICAL DOCUMENTATION: Quality ID # 436: Final reports with documentation of one or more dose reduction techniques (e.g., Automated exposure control, adjustment of the mA and/or kV according to patient size, use of iterative reconstruction technique) copyright 2010 [employer]- All Rights Reserved Head CT 09/30/18 00:00 IMPRESSION: 1. No significant interval changes since the prior examination karie ed 11/30/2017. No acute intracranial abnormality. EVIDENCE OF ACUTE STROKE: NO. KUB X-Ray 09/30/18 14:23 IMPRESSION: Ileus. Chest X-Ray 10/03/18 06:00 IMPRESSION: Stable AP portable examination with cardiomegaly. No focal airspace opacity. Visualized support apparatus do not include endotracheal tube per stated indication of ventilation. Assessment & Plan - Diagnosis (1) Acute kidney injury Is this a current diagnosis for this admission?: Yes (2) Atrial fibrillation with RVR Is this a current diagnosis for this admission?: Yes (3) Morbid obesity due to excess calories Is this a current diagnosis for this admission?: Yes (4) Hypotension Qualifiers: Hypotension type: unspecified hypotension type Qualified Code(s): I95.9 - Hypotension, unspecified Is this a current diagnosis for this admission?: Yes (5) Small bowel obstruction Is this a current diagnosis for this admission?: Yes (6) Hypernatremia Is this a current diagnosis for this admission?: Yes (7) Respiratory failure Qualifiers: Chronicity: unspecified Respiratory failure complication: unspecified whether with hypoxia or hypercapnia Qualified Code(s): J96.90 - Respiratory failure, unspecified, unspecified whether with hypoxia or hypercapnia Is this a current diagnosis for this admission?: Yes (8) Sepsis following intra-abdominal surgery Is this a current diagnosis for this admission?: Yes (9) Deep vein thrombosis (DVT) of proximal vein of right lower extremity Qualifiers: Chronicity: acute Qualified Code(s): I82.4Y1 - Acute embolism and thrombosis of unspecified deep veins of right proximal lower extremity Is this a current diagnosis for this admission?: Yes Plan: Discontinue IV heparin, start Eliquis 5 mg p.o. twice daily (10) Ileitis, terminal Qualifiers: Digestive disease complication type: with abscess Qualified Code(s): K50.0 14 - Crohn's disease of small intestine with abscess Is this a current diagnosis for this admission?: Yes (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
[2018-10-03] MEDS: APIXABAN 5 MG TABLET PO SCH (17:26)
--- NOTE | 2018-10-03 21:03 | Progress Note ---
Provider Note Provider Note: Cardiology PROGRESS NOTE by Dr. Ana Jon on 10/03/2018. SUBJECTIVE: The patient is more awake and only minimally drowsy. He is able to talk. He seems to be oriented x3. He recognizes me. He denies any chest pain or discomfort. There is no shortness of breath. The patient remains in sinus rhythm. On p.o. amiodarone there seems to be no ill effects. There is no TIA CVA symptoms. There is no arrhythmia seen on the monitor. There is only trace leg edema. He is oxygenating well on 4 L nasal cannula. PHYSICAL EXAMINATION: The patient morbidly obese. He is in no acute distress. Selected Entries 10/03/18 16:00 Temperature 98.6 F Temperature Axillary Source Pulse Rate 63 Respiratory 23 H Rate Blood Pressure 165/95 H [Left Upper Arm ] Blood Pressure 118 Mean [Left Upper Arm] Blood Pressure Supine Position [Left Upper Arm] O2 Sat by Pulse 98 Oximetry Oxygen Delivery Nasal Cannula Method ( includes room 4 L/min air) HEAD: Is atraumatic normocephalic. EYES: Pupils are equal round regular reactive light accommodation. Extraocular movements are normal. There is no conjunctival pallor. There is no scleral icterus. EARS: Tympanic memories are intact. External auditory canals are clear. NOSE: There is no deviated nasal septum. There is no inflammation of the nasal mucous membrane. MOUTH: Mucous membranes of mouth are moist. Tongue is moist. There is no ulcers there is no bleeding from the gums. Throat: There is no redness of the oropharynx. There is no exudates. SKIN: There is no skin rashes or skin lesions. There is no petechia or ecchymosis. NECK: Supple. There is no JVD. Carotids are equal there is no bruit. There is no accessory muscles of respiration use. Trachea central. LUNGS: There is diminished air entry prolonged expiration. There is a few scattered rhonchi. There is no wheezing or rales. On percussion there is hyperresonance. On palpation there is no chest wall tenderness. HEART: S1-S2 is heard S1 is of normal intensity. There is no S3 gallop there is no S4 gallop. There is systolic murmur left sternal border and the apex there is no rub. ABDOMEN: Is soft. The dressing is dry and clean. There is no hepatosplenomegaly. Bowel sounds are absent. EXTREMITIES: Femorals are dimin ished there is no femoral bruits. Leg pulses are diminished. 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 He is oriented to to person place or time.. There is no focal deficits, she is able to move all 4 extremities.. PSYCHIATRIC: In-depth psychiatric examination not done. The patient does not appear to be anxious or agitated 10/03/18 10/03/18 10/03/18 04:50 04:50 04:50 WBC 9.6 RBC 3.74 L Hgb 10.1 L Hct 30.8 L MCV 82 MCH 26.9 L MCHC 32.7 RDW 17.1 H Plt Count 270 Carbonic Acid 1.34 HCO3/H2CO3 Ratio 23:1 ABG pH 7.47 H ABG pCO2 44.6 ABG pO2 103.8 H ABG HCO3 31.6 H ABG Total CO2 33.0 H ABG O2 Saturation 98.0 ABG Base Excess 7.0 FiO2 28% Sodium 148.6 H Potassium 3.4 L Chloride 112 H Carbon Dioxide 32 H Anion Gap 5 BUN 17 Creatinine 1.21 Est GFR ( Amer) > 60 Calcium 8.3 L CHEST X-ray: Shows no acute infiltrates. The patient's 24-hour intake is 1730 mL and output is 1805 mL. Impression/Recommendation:. 1. . Acute respiratory failure hypoxemic: This has resolved. The patient is nasal cannula oxygen, after extubation. Continue antibiotics, and respiratory treatments., Will continue BiPAP at night. 2. Status post acute abdomen, status post laparotomy and ileectomy for small bowel obstruction. Continue IV fluids continue antibiotics. The patient seems to have recovered, and is passing flatus. 3 Paroxysmal atrial fibrillation. Continue amiodarone at 200 mg via p.o. every 12 hours. The patient's liver function tests are normal. Note that the patient's TSH is slightly elevated, as also has a T4. Hence we will recheck the patient's TSH tomorrow a.m. 4. Lower extremity DVT: Patient is on IV heparin. Consider switching to oral anticoagulant . 5. Acute renal failure/injury: Nephrology on the case. This is improved the patient's GFR now is 57 mL which is chronic kidney disease stage III. 6. Hypertension: Blood pressure stable. Earlier the patient was hypotensive with systolic pressure of blood pressure in the 90s requiring emergent cardioversion of the atrial fibrillation with rapid ventricular response. Subsequently the patient blood pressure now is stable. 7. Coronary artery disease: Patient stable with no anginal symptoms, in spite of the patient having atrial fibrillation with rapid ventricular response. Also the patient has no evidence of non-ST elevation OR, so far. Recheck EKG and troponin I in the morning. 8. History of asthma/COPD: Continue anti-COPD treatment. At present no signs of acute exacerbation of COPD. This seems to have resolved back to baseline. 9. Obstructive sleep apnea: Continue BiPAP instructed patient the importance of using BiPAP. 10. Cardiomyopathy: No evidence of heart failure. Note his last LV ejection fraction was within normal limits. 11. AICD placement: No firing of AICD. Note that the AICD was interrogated and data sent remotely to the [employer]. The pacemaker function is normal. There is been no recent AICD shocks. 12. History of depression schizoaffective disorder and posttraumatic stress disorder. 13. Altered mental status? Cause.There is no evidence of CVA by CT of Head. 14. Morbid obesity. MEDICATIONS reviewed. Management plan discussed with attending physician on the case. Medical decision making is now of moderate complexity. 40 minutes spent on this patient more than 50% time spent in direct patient care. Apart from r evradhaw of his medications, new blood pressure medications have been added. Also ordered repeat thyroid function tests.
[2018-10-03] MEDS: ATORVASTATIN CALCIUM 80 MG TABLET NG SCH (21:50)
[2018-10-03] MEDS: ARIPIPRAZOLE 5 MG TABLET NG SCH (21:52)
[2018-10-03] MEDS: AMLODIPINE BESYLATE 5 MG TABLET PO SCH (22:21)
[2018-10-03] MEDS: LISINOPRIL 10 MG TABLET PO SCH (22:21)
[2018-10-03] MEDS ORDERED: ONDANSETRON HCL INJ/PF 4 MG/2 ML SDV IV PRN (23:33)
[2018-10-04 06:12] LABS: FREE T3 2.21 pg/mL (2.77-5.27); FREE T4 (FREE THYROXINE) 1.9 ng/dL (0.78-2.19)
[2018-10-04 06:26] LABS: THYROID STIMULATING HORMONE 2.98 uIU/mL (0.47-4.68)
--- NOTE | 2018-10-04 07:22 | PDOC PROGRESS REPORT ---
Subjective Progress Note for:: 10/04/18 Subjective:: awake, somwhat confused vomited last pm Reason For Visit: ACUTE KIDNEY INJURY,PAROXYSMAL ATRIAL FIBRILLATION Physical Exam Vital Signs: Temp Pulse Resp BP Pulse Ox 98.7 F 78 28 H 146/93 H 98 10/04/18 04:06 10/04/18 04:06 10/04/18 04:12 10/04/18 04:06 10/04/18 04:12 Intake & Output 10/03/18 10/04/18 10/05/18 06:59 06:59 06:59 Intake Total 1730 948 Output Total 1805 1750 Balance -75 -802 Weight 125.9 kg 122.3 kg General appearance: PRESENT: mild distress, obese Head exam: PRESENT: normocephalic Eye exam: PRESENT: EOMI Ear exam: PRESENT: normal external ear exam Mouth exam: PRESENT: moist Neck exam: PRESENT: full ROM Respiratory exam: PRESENT: clear to auscultation martita Cardiovascular exam: PRESENT: RRR Pulses: PRESENT: +2 pedal pulses bilateral GI/Abdominal exam: PRESENT: other - incision with min serous drainage, no cellulitis. lupe intact. Rectal exam: PRESENT: deferred Gentrourinary exam: PRESENT: indwelling catheter Extremities exam: PRESENT: full ROM Musculoskeletal exam: PRESENT: full ROM Neurological exam: PRESENT: awake Psychiatric exam: PRESENT: anxious Results Laboratory Results: 10/03/18 04:50 10/03/18 04:50 10/04/18 04:50 TSH 2.98 Free T4 1.90 Free T3 pg/mL 2.21 L 09/15/18 09/15/18 09/15/18 07:07 13:30 13:30 Creatine Kinase 261 H CK-MB (CK-2) 1.63 Troponin I 0.015 0.021 NT-Pro-B Natriuret Pep 239 09/15/18 09/15/18 09/17/18 20:35 20:35 09:48 Creatine Kinase 855 H 1250 H CK-MB (CK-2) 6.56 H Troponin I 0.022 NT-Pro-B Natriuret Pep 09/17/18 09/22/18 09/27/18 09:48 03:15 04:21 Creatine Kinase CK-MB (CK-2) 3.91 Troponin I < 0.012 0.041 NT-Pro-B Natriuret Pep 978 H Impressions: Renal Ultrasound 09/15/18 00:00 IMPRESSION: No evidence hydronephrosis. Small Bowel X-Ray 09/18/18 00:00 IMPRESSION: 1. At 3 hours, much of the contrast remains in the stomach. If clinically feasible, consider positioning patient on the right side to facilitate emptying of the stomach and better opacification of the small bowel. If this can be done, consider additional follow-up radiographs in several hours. 2. There is a small amount of contrast in several distended small bowel segments, likely small bowel obstruction. However, there is not adequate opacification to determine the transition point. Abdomen/Pelvis CT 09/23/18 00:00 IMPRESSION: Postsurgical changes of midline laparotomy. Additional mild inflammatory stranding about the right lower quadrant mesentery as well as amorphous fluid within the mid abdomen are also likely postsurgical in etiology. Otherwise, no acute abnormality within the abdomen or pelvis is identified. Bibasilar consolidation. Consider atelectasis or pneumonia to include aspiration. Hyperdensity within the gallbladder lumen either indicates vicarious excretion of previously administered contrast material or sludge/stones. TECHNICAL DOCUMENTATION: Quality ID # 436: Final reports with documentation of one or more dose reduction techniques (e.g., Automated exposure control, adjustment of the mA and/or kV according to patient size, use of iterative reconstruction technique) copyright 2011 [employer]- All Rights Reserved Head CT 09/30/18 00:00 IMPRESSION: 1. No significant interval changes since the prior examination dated 11/30/2017. No acute intracranial abnormality. EVIDENCE OF ACUTE STROKE: NO. KUB X-Ray 09/30/18 14:23 IMPRESSION: Ileus. Chest X-Ray 10/03/18 06:00 IMPRESSION: Stable AP portable examination with cardiomegaly. No focal airspace opacity. Visualized support apparatus do not include endotracheal tube per stated indication of ventilation.
--- NOTE | 2018-10-04 08:44 | RADIOLOGY REPORT (SQ) ---
EXAM DESCRIPTION: CHEST SINGLE VIEW COMPLETED DATE/TIME: 10/04/2018 7:50 am REASON FOR STUDY: RESPIRTORY FAILURE PATIENT ON VENT COMPARISON: None. NUMBER OF VIEWS: One view. TECHNIQUE: Single frontal radiographic view of the chest acquired. LIMITATIONS: None. FINDINGS: LUNGS AND PLEURA: No opacities, masses or pneumothorax. No pleural effusion. MEDIASTINUM AND HILAR STRUCTURES: No masses or contour abnormality. HEART AND VASCULATURE: Cardiac enlargement. Vascular congestion. BONES: No acute findings. HARDWARE: Venous access catheter unchanged. Pacemaker unchanged. OTHER: No other significant finding. IMPRESSION: CARDIAC ENLARGEMENT. VASCULAR CONGESTION. TECHNICAL DOCUMENTATION: JOB ID: [id number] [employer]- All Rights Reserved Reading location - IP/workstation name: [email or web address]
--- NOTE | 2018-10-04 10:37 | PDOC PROGRESS REPORT ---
Subjective Progress Note for:: 10/04/18 Subjective:: Patient is currently lying in the bed more sleepy Patient was just transferred from ICU to rehab with the multiple comorbidity According to the nursing staff no other concerns Patient seen by the surgery and cardiology Reason For Visit: ACUTE KIDNEY INJURY,PAROXYSMAL ATRIAL FIBRILLATION Physical Exam Vital Signs: Temp Pulse Resp BP Pulse Ox 98.7 F 72 28 H 146/93 H 98 10/04/18 04:06 10/04/18 07:00 10/04/18 04:12 10/04/18 04:06 10/04/18 04:12 Intake & Output 10/03/18 10/04/18 10/05/18 06:59 06:59 06:59 Intake Total 1730 948 Output Total 1805 1750 Balance -75 -802 Weight 125.9 kg 122.3 kg General appearance: PRESENT: no acute distress Eye exam: PRESENT: PERRLA Respiratory exam: PRESENT: clear to auscultation martita Cardiovascular exam: PRESENT: +S1, +S2 GI/Abdominal exam: PRESENT: normal bowel sounds, soft Neurological exam: PRESENT: alert Skin exam: PRESENT: dry Results Laboratory Results: 10/03/18 04:50 10/03/18 04:50 10/04/18 04:50 TSH 2.98 Free T4 1.90 Free T3 pg/mL 2.21 L 09/15/18 09/15/18 09/15/18 07:07 13:30 13:30 Creatine Kinase 261 H CK-MB (CK-2) 1.63 Troponin I 0.015 0.021 NT-Pro-B Natriuret Pep 239 09/15/18 09/15/18 09/17/18 20:35 20:35 09:48 Creatine Kinase 855 H 1250 H CK-MB (CK-2) 6.56 H Troponin I 0.022 NT-Pro-B Natriuret Pep 09/17/18 09/22/18 09/27/18 09:48 03:15 04:21 Creatine Kinase CK-MB (CK-2) 3.91 Troponin I < 0.012 0.041 NT-Pro-B Natriuret Pep 978 H Impressions: Renal Ultrasound 09/15/18 00:00 IMPRESSION: No evidence hydronephrosis. Small Bowel X-Ray 09/18/18 00:00 IMPRESSION: 1. At 3 hours, much of the contrast remains in the stomach. If clinically feasible, consider positioning patient on the right side to facilitate emptying of the stomach and better opacification of the small bowel. If this can be done, consider additional follow-up radiographs in several hours. 2. There is a small amount of contrast in several distended small bowel segments, likely small bowel obstruction. However, there is not adequate opacification to determine the transition point. Abdomen/Pelvis CT 09/23/18 00:00 IMPRESSION: Postsurgical changes of midline laparotomy. Additional mild inflammatory stranding about the right lower quadrant mesentery as well as amorphous fluid within the mid abdomen are also likely postsurgical in etiology. Otherwise, no acute abnormality within the abdomen or pelvis is identified. Bibasilar consolidation. Consider atelectasis or pneumonia to include aspiration. Hyperdensity within the gallbladder lumen either indicates vicarious excretion of previously administered contrast material or sludge/stones. TECHNICAL DOCUMENTATION: Quality ID # 436: Final reports with documentation of one or more dose reduction techniques (e.g., Automated exposure control, adjustment of the mA and/or kV according to patient size, use of iterative reconstruction technique) copyright 2011 [employer]- All Rights Reserved Head CT 09/30/18 00:00 IMPRESSION: 1. No significant interval changes since the prior examination dated 11/30/2017. No acute intracranial abnormality. EVIDENCE OF ACUTE STROKE: NO. KUB X-Ray 09/30/18 14:23 IMPRESSION: Ileus. Chest X-Ray 10/04/18 06:00 IMPRESSION: CARDIAC ENLARGEMENT. VASCULAR CONGESTION. Assessment & Plan - Diagnosis (1) ARDS (adult respiratory distress syndrome) Is this a current diagnosis for this admission?: Yes (2) Acute kidney injury Is this a current diagnosis for this admission?: Yes (3) Atrial fibrillation with RVR Is this a current diagnosis for this admission?: Yes (4) Deep vein thrombosis (DVT) of proximal vein of right lower extremity Qualifiers: Chronicity: acute Qualified Code(s): I82.4Y1 - Acute embolism and thrombos is of unspecified deep veins of right proximal lower extremity Is this a current diagnosis for this admission?: Yes (5) Respiratory failure Qualifiers: Chronicity: acute Respiratory failure complication: hypoxia Qualified Code(s): J96.01 - Acute respiratory failure with hypoxia Is this a current diagnosis for this admission?: Yes (7) Cardiomyopathy Qualifiers: Cardiomyopathy type: unspecified Qualified Code(s): I42.9 - Cardiomyopathy, unspecified Is this a current diagnosis for this admission?: Yes - Time Time Spent with patient: 15-24 minutes Medications reviewed and adjusted accordingly: Yes Within: Other - Plan Summary Plan Summary: Continues to current medications
[2018-10-04] MEDS: MAGNESIUM OXIDE 400 MG TABLET NG SCH (11:44)
[2018-10-04] MEDS: PAROXETINE HCL 20 MG TABLET NG SCH (11:44)
[2018-10-04] MEDS: CLONAZEPAM 1 MG TABLET NG SCH (11:44)
[2018-10-04] MEDS: CYANOCOBALAMIN (VITAMIN B-12) 1,000 MCG TABLET NG SCH (11:44)
[2018-10-04] MEDS: BENZTROPINE MESYLATE 1 MG TABLET NG SCH ×2 (11:45→21:56)
[2018-10-04] MEDS: METOPROLOL TARTRATE 50 MG TABLET NG SCH ×2 (11:45→21:55)
[2018-10-04] MEDS: AMLODIPINE BESYLATE 5 MG TABLET PO SCH ×2 (11:45→21:55)
[2018-10-04] MEDS: AMIODARONE HCL 200 MG TABLET NG SCH ×2 (11:45→21:55)
[2018-10-04] MEDS: LISINOPRIL 10 MG TABLET PO SCH ×2 (11:45→21:54)
[2018-10-04] MEDS: GUAIFENESIN SYRP 200 MG/10 ML UDC PO SCH ×2 (11:45→21:54)
[2018-10-04] MEDS: FUROSEMIDE 40 MG TABLET PO SCH (11:45)
[2018-10-04] MEDS: NITROGLYCERIN 10 MG (0.4 MG/HR) PATCH.TD24 TD SCH (11:46)
[2018-10-04] MEDS: APIXABAN 5 MG TABLET PO SCH ×2 (11:46→17:25)
[2018-10-04] MEDS: DOCUSATE SODIUM 100 MG/10 ML UDC PO SCH ×2 (11:47→17:25)
[2018-10-04] MEDS: PANTOPRAZOLE SODIUM 40 MG PACKET.DR NG SCH ×2 (12:31→17:25)
[2018-10-04] MEDS: NORMAL SALINE 1000 ML 1,000 ML IV PRN (17:25)
--- NOTE | 2018-10-04 17:34 | Progress Note ---
Provider Note Provider Note: CARDIOLOGY PROGRESS NOTE by Dr. adelaida Sethi on 10/04/2018. SUBJECTIVE: The patient is transferred out of ICU to [facility]. The patient is awake alert oriented x3 and able to speak. He does not appear to be confused. He is oriented x3. He denies any chest pain discomfort there is no shortness of breath. There is no cough or sputum production. The patient has chronic orthopnea but no PND. There is no firing of his AICD. There is no anginal symptoms. There is no arrhythmia seen on the monitor. There is no recurrence of atrial flutter or fibrillation. His appetite is good. He does not choke when eating. PHYSICAL EXAMINATION: The patient is morbidly obese., In no acute distress. He is well-groomed Selected Entries 10/04/18 09:08 Temperature 99.6 F Temperature Oral Source Pulse Rate 69 Respiratory 20 Rate Blood Pressure 151/72 H Blood Pressure 98 Mean BP Location Right Arm BP Position Sitting O2 Sat by Pulse 98 Oximetry Oxygen Flow 4.00 Rate HEAD: Is atraumatic normocephalic. EYES: Pupils are equal round regular reactive light accommodation. Extraocular movements are normal. There is no conjunctival pallor. There is no scleral icterus. EARS: Tympanic memories are intact. External auditory canals are clear. NOSE: There is no deviated nasal septum. There is no inflammation of the nasal mucous membrane. MOUTH: Mucous membranes of mouth are moist. Tongue is moist. There is no ulcers there is no bleeding from the gums. Throat: There is no redness of the oropharynx. There is no exudates. SKIN: There is no skin rashes or skin lesions. There is no petechia or ecchymosis. NECK: Supple. There is no JVD. Carotids are equal there is no bruit. There is no accessory muscles of respiration use. Trachea central. LUNGS: There is diminished air entry prolonged expiration. There is a few scattered rhonchi. There is no wheezing or rales. On percussion there is hyperresonance. On palpation there is no chest wall tenderness. HEART: S1-S2 is heard S1 is of normal intensity. There is no S3 gallop there is no S4 gallop. There is systolic murmur left sternal border and the apex there is no rub. ABDOMEN: Is soft. The dressing is dry and clean. There is no hepatosplenomegaly. Bowel sounds are absent. EXTREMITIES: Femorals are diminished there is no femoral bruits. Leg pulses are diminished. There is no pedal edema, and no evidence PRESCRIPTION [employer]: The patient is conscious awake, and now able to talk a little. He is oriented to to person place and time.. There is no focal deficits, she is able to move all 4 extremities. PSYCHIATRIC: The patient judgment and insight are intact his affect is normal.. Labs- All tests 24 hr 10/03/18 10/04/18 10/04/18 21:37 04:50 04:50 APTT 28.9 POC Glucose 94 TSH 2.98 Free T4 1.90 Free T3 pg/mL 2.21 L The patient's 24-hour intake is 948 mL. Output is 1750 mL. Impression/Recommendation:. 1. . Acute respiratory failure hypoxemic: This has resolved. The patient is nasal cannula oxygen, with good oxygen saturation levels. Continue antibiotics, and respiratory treatments., Will continue BiPAP at night. 2. Status post acute abdomen, status post laparotomy and ileectomy for small bowel obstruction. Continue IV fluids continue antibiotics. The patient seems to have recovered, and is passing flatus. He is tolerating a good diet. 3 Paroxysmal atrial flutter/fibrillation. At present patient in sinus rhythm. Continue amiodarone at 200 mg via p.o. every 12 hours. The patient's liver function tests are normal. The patient's thyroid function tests showed normal TSH. His T3 is normal. His T4 is slightly low. Hence no definite evidence of hyper-thyroidism or hypothyroidism. We will continue to get thyroid function tests every 3 to 6 months as needed. Later we will get a full PFTs with DLCO. 4. Lower extremity DVT: The patient is now on on Eliquis without any complications. . 5. Acute renal failure/injury: This is resolved and the patient's renal function is back to normal, with a GFR greater than 60. 6. Hypertension: Blood pressure stable. Earlier the patient was hypotensive with systolic pressure of blood pressure in the 90s requiring emergent cardioversion of the atrial fibrillation with rapid ventricular response. Subsequently the patient blood pressure now is stable. 7. Coronary artery disease: Patient stable with no anginal symptoms, in spite of the patient having atrial fibrillation with rapid ventricular response. Also the patient has no evidence of non-ST elevation [place], so far, and this admission. Later as an outpatient we will get an IV Lexiscan Cardiolite stress test. 8. History of asthma/COPD: Continue anti-COPD treatment. At present no signs of acute exacerbation of COPD. This seems to have resolved back to baseline. 9. Obstructive sleep apnea: Continue BiPAP instructed patient the importance of using BiPAP. 10. Cardiomyopathy: No evidence of heart failure. Note his last LV ejection fraction was within normal limits. 11. AICD placement: No firing of AICD. Note that the AICD was interrogated and data sent remotely to the [employer]. The pacemaker function is normal. There is been no recent AICD shocks. 12. History of depression schizoaffective disorder and posttraumatic stress disorder. 13. Altered mental status? Cause.There is no evidence of CVA by CT of Head. This is resolved most likely metabolic in etiology. The patient mental status back to normal 14. Morbid obesity. Medications reviewed. Management plan discussed with Dr. Garcia covering Dr. Ayala over the weekend. Medical decision making I was of moderate complexity. Patient's cardiac status is stable. Will sign off the case. Will follow the patient in my office as an outpatient
[2018-10-04] MEDS: ARIPIPRAZOLE 5 MG TABLET NG SCH (21:55)
[2018-10-04] MEDS: ATORVASTATIN CALCIUM 80 MG TABLET NG SCH (21:55)
[2018-10-05 06:40] LABS: ABSOLUTE EOSINOPHILS # (AUTO) 0.7 10^3/uL (0.0-0.6); ABSOLUTE LYMPHOCYTES (AUTO) 1.7 10^3/uL (0.5-4.7); ABSOLUTE MONOCYTES (AUTO) 1.4 10^3/uL (0.1-1.4); ABSOLUTE NEUT (AUTO) 6.8 10^3/uL (1.7-8.2); BASOPHILS % (AUTO) 0.4 % (0-2); EOSINOPHILS % (AUTO) 6.7 % (0-6); HEMATOCRIT 30.4 % (37.9-51.0); HEMOGLOBIN 9.8 g/dL (13.5-17.0); LYMPHOCYTES % (AUTO) 15.5 % (13-45); MEAN CORPUSCULAR HEMOGLOBIN 26.6 pg (27.0-33.4); MEAN CORPUSCULAR HGB CONC 32.1 g/dL (32.0-36.0); MEAN CORPUSCULAR VOLUME 83 fl (80-97); MONOCYTES % (AUTO) 13.4 % (3-13); PLATELET COUNT 223 10^3/uL (150-450); RED BLOOD COUNT 3.68 10^6/uL (4.35-5.55); RED CELL DISTRIBUTION WIDTH 16.9 % (11.5-14.0); TOTAL CELLS COUNTED % (AUTO) 100 %; WHITE BLOOD COUNT 10.6 10^3/uL (4.0-10.5)
[2018-10-05 07:16] LABS: ANION GAP 5 (5-19); BLOOD UREA NITROGEN 12 mg/dL (7-20); CALCIUM 8.2 mg/dL (8.4-10.2); CARBON DIOXIDE 34 mmol/L (22-30); CHLORIDE 108 mmol/L (98-107); GLUCOSE 102 mg/dL (75-110); POTASSIUM 3.2 mmol/L (3.6-5.0); SODIUM 147.1 mmol/L (137-145)
[2018-10-05] MEDS: AMIODARONE HCL 200 MG TABLET NG SCH ×2 (09:58→21:21)
[2018-10-05] MEDS: PAROXETINE HCL 20 MG TABLET NG SCH (09:58)
[2018-10-05] MEDS: DOCUSATE SODIUM 100 MG/10 ML UDC PO SCH ×2 (09:58→17:58)
[2018-10-05] MEDS: GUAIFENESIN SYRP 200 MG/10 ML UDC PO SCH ×2 (09:58→21:20)
[2018-10-05] MEDS: MAGNESIUM OXIDE 400 MG TABLET NG SCH (09:59)
[2018-10-05] MEDS: PANTOPRAZOLE SODIUM 40 MG PACKET.DR NG SCH ×2 (09:59→17:57)
[2018-10-05] MEDS: NITROGLYCERIN 10 MG (0.4 MG/HR) PATCH.TD24 TD SCH (09:59)
[2018-10-05] MEDS: FUROSEMIDE 40 MG TABLET PO SCH (09:59)
[2018-10-05] MEDS: BENZTROPINE MESYLATE 1 MG TABLET NG SCH ×2 (09:59→21:21)
[2018-10-05] MEDS: LISINOPRIL 10 MG TABLET PO SCH ×2 (09:59→21:21)
[2018-10-05] MEDS: APIXABAN 5 MG TABLET PO SCH ×2 (09:59→17:57)
[2018-10-05] MEDS: AMLODIPINE BESYLATE 5 MG TABLET PO SCH ×2 (09:59→21:20)
[2018-10-05] MEDS: CYANOCOBALAMIN (VITAMIN B-12) 1,000 MCG TABLET NG SCH (09:59)
[2018-10-05] MEDS: METOPROLOL TARTRATE 50 MG TABLET NG SCH ×2 (09:59→21:21)
--- NOTE | 2018-10-05 10:22 | PDOC PROGRESS REPORT ---
Subjective Progress Note for:: 10/05/18 Subjective:: Patient is feeling much better Patient is alert awake oriented Patients wants to go home Denied any chest pain denied any abdominal pain Reason For Visit: ACUTE KIDNEY INJURY,PAROXYSMAL ATRIAL FIBRILLATION Physical Exam Vital Signs: Temp Pulse Resp BP Pulse Ox 98.0 F 63 20 146/78 H 100 10/05/18 08:29 10/05/18 08:29 10/05/18 08:29 10/05/18 08:29 10/05/18 08:29 Intake & Output 10/04/18 10/05/18 10/06/18 06:59 06:59 06:59 Intake Total 948 1410 Output Total 1750 1575 Balance -802 -165 Weight 122.3 kg 124.2 kg General appearance: PRESENT: no acute distress, well-developed, well-nourished Head exam: PRESENT: atraumatic, normocephalic Eye exam: PRESENT: conjunctiva pink, EOMI, PERRLA. ABSENT: scleral icterus Ear exam: PRESENT: normal external ear exam Mouth exam: PRESENT: moist, tongue midline Neck exam: PRESENT: full ROM. ABSENT: carotid bruit, JVD, lymphadenopathy, th yromegaly Respiratory exam: PRESENT: clear to auscultation martita Cardiovascular exam: PRESENT: RRR. ABSENT: diastolic murmur, rubs, systolic murmur Vascular exam: PRESENT: normal capillary refill GI/Abdominal exam: PRESENT: normal bowel sounds, soft. ABSENT: distended, guarding, mass, organolmegaly, rebound, tenderness Rectal exam: PRESENT: deferred Extremities exam: ABSENT: pedal edema Neurological exam: PRESENT: alert, awake, oriented to person, oriented to place. ABSENT: motor sensory deficit Psychiatric exam: PRESENT: appropriate affect, normal mood. ABSENT: homicidal ideation, suicidal ideation Skin exam: PRESENT: dry, intact, warm. ABSENT: cyanosis, rash Results Laboratory Results: 10/05/18 05:40 10/05/18 05:40 10/05/18 10/05/18 05:40 05:40 WBC 10.6 H RBC 3.68 L Hgb 9.8 L Hct 30.4 L MCV 83 MCH 26.6 L MCHC 32.1 RDW 16.9 H Plt Count 223 Seg Neutrophils % 64.0 Lymphocytes % 15.5 Monocytes % 13.4 H Eosinophils % 6.7 H Basophils % 0.4 Absolute Neutrophils 6.8 Absolute Lymphocytes 1.7 Absolute Monocytes 1.4 Absolute Eosinophils 0.7 H Absolute Basophils 0.0 Sodium 147.1 H Potassium 3.2 L Chloride 108 H Carbon Dioxide 34 H Anion Gap 5 BUN 12 Creatinine 1.26 H Est GFR ( Amer) > 60 Est GFR (Non-Af Amer) 58 L Glucose 102 Calcium 8.2 L 09/15/18 09/15/18 09/15/18 07:07 13:30 13:30 Creatine Kinase 261 H CK-MB (CK-2) 1.63 Troponin I 0.015 0.021 NT-Pro-B Natriuret Pep 239 09/15/18 09/15/18 09/17/18 20:35 20:35 09:48 Creatine Kinase 855 H 1250 H CK-MB (CK-2) 6.56 H Troponin I 0.022 NT-Pro-B Natriuret Pep 09/17/18 09/22/18 09/27/18 09:48 03:15 04:21 Creatine Kinase CK-MB (CK-2) 3.91 Troponin I < 0.012 0.041 NT-Pro-B Natriuret Pep 978 H Impressions: Renal Ultrasound 09/15/18 00:00 IMPRESSION: No evidence hydronephrosis. Small Bowel X-Ray 09/18/18 00:00 IMPRESSION: 1. At 3 hours, much of the contrast remains in the stomach. If clinically feasible, consider positioning patient on the right side to facilitate emptying of the stomach and better opacification of the small bowel. If this can be done, consider additional follow-up radiographs in several hours. 2. There is a small amount of contrast in several distended small bowel segments, likely small bowel obstruction. However, there is not adequate opacification to determine the transition point. Abdomen/Pelvis CT 09/23/18 00:00 IMPRESSION: Postsurgical changes of midline laparotomy. Additional mild inflammatory stranding about the right lower quadrant mesentery as well as amorphous fluid within the mid abdomen are also likely postsurgical in etiology. Otherwise, no acute abnormality within the abdomen or pelvis is identified. Bibasilar consolidation. Consider atelectasis or pneumonia to include aspiration. Hyperdensity within the gallbladder lumen either indicates vicarious excretion of previously administered contrast material or sludge/stones. TECHNICAL DOCUMENTATION: Quality ID # 436: Final reports with documentation of one or more dose reduction techniques (e.g., Automated exposure control, adjustment of the mA and/or kV according to patient size, use of iterative reconstruction technique) copyright 2011 [employer]- All Rights Reserved Head CT 09/30/18 00:00 IMPRESSION: 1. No significant interval changes since the prior examination d ated 11/30/2017. No acute intracranial abnormality. EVIDENCE OF ACUTE STROKE: NO. KUB X-Ray 09/30/18 14:23 IMPRESSION: Ileus. Chest X-Ray 10/04/18 06:00 IMPRESSION: CARDIAC ENLARGEMENT. VASCULAR CONGESTION. Assessment & Plan - Diagnosis (1) ARDS (adult respiratory distress syndrome) Is this a current diagnosis for this admission?: Yes (2) Acute kidney injury Is this a current diagnosis for this admission?: Yes (3) Atrial fibrillation with RVR Is this a current diagnosis for this admission?: Yes (4) Deep vein thrombosis (DVT) of proximal vein of right lower extremity Qualifiers: Chronicity: acute Qualified Code(s): I82.4Y1 - Acute embolism and thrombosis of unspecified deep veins of right proximal lower extremity Is this a current diagnosis for this admission?: Yes (5) Respiratory failure Qualifiers: Chronicity: acute Respiratory failure complication: hypoxia Qualified Code(s): J96.01 - Acute respiratory failure with hypoxia Is this a current diagnosis for this admission?: Yes (7) Cardiomyopathy Qualifiers: Cardiomyopathy type: unspecified Qualified Code(s): I42.9 - Cardiomyopathy, unspecified Is this a current diagnosis for this admission?: Yes - Time Time Spent with patient: 15-24 minutes Medications reviewed and adjusted accordingly: Yes Anticipated discharge: Other Within: Other - Plan Summary Plan Summary: Replace the potassium's Physical therapy evaluations
[2018-10-05] MEDS ORDERED: POTASSIUM CHLORIDE 20 MEQ PACKET PO ONE (11:00)
--- NOTE | 2018-10-05 12:42 | PDOC PROGRESS REPORT ---
Subjective Progress Note for:: 10/05/18 Reason For Visit: ACUTE KIDNEY INJURY,PAROXYSMAL ATRIAL FIBRILLATION Physical Exam Vital Signs: Temp Pulse Resp BP Pulse Ox 98.0 F 63 20 146/78 H 100 10/05/18 08:29 10/05/18 08:29 10/05/18 08:29 10/05/18 08:29 10/05/18 08:29 Intake & Output 10/04/18 10/05/18 10/06/18 06:59 06:59 06:59 Intake Total 948 1410 Output Total 1750 1575 Balance -802 -165 Weight 122.3 kg 124.2 kg Results Laboratory Results: 10/05/18 05:40 10/05/18 05:40 10/05/18 10/05/18 05:40 05:40 WBC 10.6 H RBC 3.68 L Hgb 9.8 L Hct 30.4 L MCV 83 MCH 26.6 L MCHC 32.1 RDW 16.9 H Plt Count 223 Seg Neutrophils % 64.0 Lymphocytes % 15.5 Monocytes % 13.4 H Eosinophils % 6.7 H Basophils % 0.4 Absolute Neutrophils 6.8 Absolute Lymphocytes 1.7 Absolute Monocytes 1.4 Absolute Eosinophils 0.7 H Absolute Basophils 0.0 Sodium 147.1 H Potassium 3.2 L Chloride 108 H Carbon Dioxide 34 H Anion Gap 5 BUN 12 Creatinine 1.26 H Est GFR ( Amer) > 60 Est GFR (Non-Af Amer) 58 L Glucose 102 Calcium 8.2 L 09/15/18 09/15/18 09/15/18 07:07 13:30 13:30 Creatine Kinase 261 H CK-MB (CK-2) 1.63 Troponin I 0.015 0.021 NT-Pro-B Natriuret Pep 239 09/15/18 09/15/18 09/17/18 20:35 20:35 09:48 Creatine Kinase 855 H 1250 H CK-MB (CK-2) 6.56 H Troponin I 0.022 NT-Pro-B Natriuret Pep 09/17/18 09/22/18 09/27/18 09:48 03:15 04:21 Creatine Kinase CK-MB (CK-2) 3.91 Troponin I < 0.012 0.041 NT-Pro-B Natriuret Pep 978 H Impressions: Renal Ultrasound 09/15/18 00:00 IMPRESSION: No evidence hydronephrosis. Small Bowel X-Ray 09/18/18 00:00 IMPRESSION: 1. At 3 hours, much of the contrast remains in the stomach. If clinically feasible, consider positioning patient on the right side to facilitate emptying of the stomach and better opacification of the small bowel. If this can be done, consider additional follow-up radiographs in several hours. 2. There is a small amount of contrast in several distended small bowel segments, likely small bowel obstruction. However, there is not adequate opacification to determine the transition point. Abdomen/Pelvis CT 09/23/18 00:00 IMPRESSION: Postsurgical changes of midline laparotomy. Additional mild inflammatory stranding about the right lower quadrant mesentery as well as amorphous fluid within the mid abdomen are also likely postsurgical in etiology. Otherwise, no acute abnormality within the abdomen or pelvis is identified. Bibasilar consolidation. Consider atelectasis or pneumonia to include aspiration. Hyperdensity within the gallbladder lumen either indicates vicarious excretion of previously administered contrast material or sludge/stones. TECHNICAL DOCUMENTATION: Quality ID # 436: Final reports with documentation of one or more dose reduction techniques (e.g., Automated exposure control, adjustment of the mA and/or kV according to patient size, use of iterative reconstruction technique) copyright 2011 [employer] All Rights Reserved Head CT 09/30/18 00:00 IMPRESSION: 1. No significant interval changes since the prior examination dated 11/30/2017. No acute intracranial abnormality. EVIDENCE OF ACUTE STROKE: NO. KUB X-Ray 09/30/18 14:23 IMPRESSION: Ileus. Chest X-Ray 10/04/18 06:00 IMPRESSION: CARDIAC ENLARGEMENT. VASCULAR CONGESTION. Assessment & Plan - Diagnosis (1) Small bowel obstruction Is this a current diagnosis for this admission?: Yes - Plan Summary Plan Summary: 63-year-old male status post exploratory laparotomy for a small bowel obstruction. The patient underwent ileocecectomy with primary anastomosis. The patient is eating and stooling. I examined his midline wound today. There is oozing of blood from the lower midline. I removed several lupe, revealing a subcutaneous hematoma. This was evacuated, irrigated, and a dressing was placed. Initiate damp to dry dressing changes. Consult social work for home health for dressing changes. The patient otherwise appears to be doing well. Surgery will sign off at this time. Follow-up at [facility] in 7 to 10 days for staple removal. Please renotify with any questions or concerns.
[2018-10-05] MEDS: ATORVASTATIN CALCIUM 80 MG TABLET NG SCH (21:21)
[2018-10-05] MEDS: ARIPIPRAZOLE 5 MG TABLET NG SCH (21:21)
[2018-10-06 08:14] LABS: ABSOLUTE EOSINOPHILS # (AUTO) 0.9 10^3/uL (0.0-0.6); ABSOLUTE LYMPHOCYTES (AUTO) 1.6 10^3/uL (0.5-4.7); ABSOLUTE MONOCYTES (AUTO) 1.2 10^3/uL (0.1-1.4); BASOPHILS % (AUTO) 0.4 % (0-2); HEMATOCRIT 30.1 % (37.9-51.0); HEMOGLOBIN 9.7 g/dL (13.5-17.0); LYMPHOCYTES % (AUTO) 16.3 % (13-45); MEAN CORPUSCULAR HEMOGLOBIN 26.9 pg (27.0-33.4); MEAN CORPUSCULAR HGB CONC 32.2 g/dL (32.0-36.0); MEAN CORPUSCULAR VOLUME 84 fl (80-97); PLATELET COUNT 213 10^3/uL (150-450); RED CELL DISTRIBUTION WIDTH 16.8 % (11.5-14.0); SEGMENTED NEUTROPHILS % (AUTO) 62.3 % (42-78); TOTAL CELLS COUNTED % (AUTO) 100 %; WHITE BLOOD COUNT 9.6 10^3/uL (4.0-10.5)
[2018-10-06 08:23] LABS: APPEARANCE,URINE CLEAR; BILIRUBIN,URINE NEGATIVE (NEGATIVE); COLOR,URINE YELLOW; GLUCOSE, URINE NEGATIVE (NEGATIVE); KETONES,URINE NEGATIVE (NEGATIVE); LEUKOCYTE ESTERASE,URINE NEGATIVE (NEGATIVE); NITRITE,URINE NEGATIVE (NEGATIVE); PROTEIN,URINE 30 mg/dL (NEGATIVE); URINE SPECIFIC GRAVITY 1.013
[2018-10-06 08:33] LABS: ANION GAP 7 (5-19); BLOOD UREA NITROGEN 11 mg/dL (7-20); CALCIUM 8.1 mg/dL (8.4-10.2); CARBON DIOXIDE 34 mmol/L (22-30); CHLORIDE 105 mmol/L (98-107); GLUCOSE 104 mg/dL (75-110); POTASSIUM 3.3 mmol/L (3.6-5.0); SODIUM 145.9 mmol/L (137-145)
[2018-10-06] MEDS: NITROGLYCERIN 10 MG (0.4 MG/HR) PATCH.TD24 TD SCH (09:45)
[2018-10-06] MEDS: METOPROLOL TARTRATE 50 MG TABLET NG SCH ×2 (09:47→21:40)
[2018-10-06] MEDS: PAROXETINE HCL 20 MG TABLET NG SCH (09:47)
[2018-10-06] MEDS: GUAIFENESIN SYRP 200 MG/10 ML UDC PO SCH ×2 (09:47→21:40)
[2018-10-06] MEDS: FUROSEMIDE 40 MG TABLET PO SCH (09:47)
[2018-10-06] MEDS: AMIODARONE HCL 200 MG TABLET NG SCH ×2 (09:48→21:39)
[2018-10-06] MEDS: LISINOPRIL 10 MG TABLET PO SCH ×2 (09:48→21:40)
[2018-10-06] MEDS: BENZTROPINE MESYLATE 1 MG TABLET NG SCH ×2 (09:48→21:40)
[2018-10-06] MEDS: AMLODIPINE BESYLATE 5 MG TABLET PO SCH ×2 (09:48→21:39)
[2018-10-06] MEDS: PANTOPRAZOLE SODIUM 40 MG PACKET.DR NG SCH ×2 (09:48→17:30)
[2018-10-06] MEDS: CYANOCOBALAMIN (VITAMIN B-12) 1,000 MCG TABLET NG SCH (09:48)
[2018-10-06] MEDS: MAGNESIUM OXIDE 400 MG TABLET NG SCH (09:48)
[2018-10-06] MEDS: APIXABAN 5 MG TABLET PO SCH ×2 (09:48→17:30)
[2018-10-06] MEDS: DOCUSATE SODIUM 100 MG/10 ML UDC PO SCH ×2 (10:14→17:30)
[2018-10-06] MEDS: NORMAL SALINE 1000 ML 1,000 ML IV PRN (10:21)
--- NOTE | 2018-10-06 20:09 | PDOC PROGRESS REPORT ---
Subjective Progress Note for:: 10/06/18 Subjective:: Patient seen by the bedside, is alert oriented to time place and person, DC Aldana catheter, Will encourage physical therapy Reason For Visit: ACUTE KIDNEY INJURY,PAROXYSMAL ATRIAL FIBRILLATION Physical Exam Vital Signs: Temp Pulse Resp BP Pulse Ox 98.9 F 70 22 H 139/76 H 95 10/06/18 15:09 10/06/18 19:00 10/06/18 15:09 10/06/18 15:09 10/06/18 17:46 Intake & Output 10/05/18 10/06/18 10/07/18 06:59 06:59 06:59 Intake Total 1410 2174 808 Output Total 1575 1500 1300 Balance -165 674 -492 Weight 124.2 kg 125.5 kg General appearance: PRESENT: no acute distress Eye exam: PRESENT: PERRLA Respiratory exam: PRESENT: rhonchi Cardiovascular exam: PRESENT: +S1, +S2 GI/Abdominal exam: PRESENT: soft Neurological exam: PRESENT: alert Results Laboratory Results: 10/06/18 06:35 10/06/18 06:35 10/06/18 10/06/18 10/06/18 06:35 06:35 06:35 WBC 9.6 RBC 3.60 L Hgb 9.7 L Hct 30.1 L MCV 84 MCH 26.9 L MCHC 32.2 RDW 16.8 H Plt Count 213 Seg Neutrophils % 62.3 Lymphocytes % 16.3 Monocytes % 12.0 Eosinophils % 9.0 H Basophils % 0.4 Absolute Neutrophils 6.0 Absolute Lymphocytes 1.6 Absolute Monocytes 1.2 Absolute Eosinophils 0.9 H Absolute Basophils 0.0 Sodium 145.9 H Potassium 3.3 L Chloride 105 Carbon Dioxide 34 H Anion Gap 7 BUN 11 Creatinine 1.09 Est GFR ( Amer) > 60 Est GFR (Non-Af Amer) > 60 Glucose 104 Calcium 8.1 L Urine Color YELLOW Urine Appearance CLEAR Urine pH 6.0 Ur Specific Thurman 1.013 Urine Protein 30 H Urine Glucose (UA) NEGATIVE Urine Ketones NEGATIVE Urine Blood LARGE H Urine Nitrite NEGATIVE Ur Leukocyte Esterase NEGATIVE Urine WBC (Auto) 4 Urine RBC (Auto) >182 Stool Occult Blood 10/06/18 06:35 WBC RBC Hgb Hct MCV MCH MCHC RDW Plt Count Seg Neutrophils % Lymphocytes % Monocytes % Eosinophils % Basophils % Absolute Neutrophils Absolute Lymphocytes Absolute Monocytes Absolute Eosinophils Absolute Basophils Sodium Potassium Chloride Carbon Dioxide Anion Gap BUN Creatinine Est GFR ( Amer) Est GFR (Non-Af Amer) Glucose Calcium Urine Color Urine Appearance Urine pH Ur Specific Thurman Urine Protein Urine Glucose (UA) Urine Ketones Urine Blood Urine Nitrite Ur Leukocyte Esterase Urine WBC (Auto) Urine RBC (Auto) Stool Occult Blood NEGATIVE 09/15/18 09/15/18 09/15/18 07:07 13:30 13:30 Creatine Kinase 261 H CK-MB (CK-2) 1.63 Troponin I 0.015 0.021 NT-Pro-B Natriuret Pep 239 09/15/18 09/15/18 09/17/18 20:35 20:35 09:48 Creatine Kinase 855 H 1250 H CK-MB (CK-2) 6.56 H Troponin I 0.022 NT-Pro-B Natriuret Pep 09/17/18 09/22/18 09/27/18 09:48 03:15 04:21 Creatine Kinase CK-MB (CK-2) 3.91 Troponin I < 0.012 0.041 NT-Pro-B Natriuret Pep 978 H Impressions: Renal Ultrasound 09/15/18 00:00 IMPRESSION: No evidence hydronephrosis. Small Bowel X-Ray 09/18/18 00:00 IMPRESSION: 1. At 3 hours, much of the contrast remains in the stomach. If clinically feasible, consider positioning patient on the right side to facilitate emptying of the stomach and better opacification of the small bowel. If this can be done, consider additional follow-up radiographs in several hours. 2. There is a small amount of contrast in several distended small bowel segments, likely small bowel obstruction. However, there is not adequate opacification to determine the transition point. Abdomen/Pelvis CT 09/23/18 00:00 IMPRESSION: Postsurgical changes of midline laparotomy. Additional mild inflammatory stranding about the right lower quadrant mesentery as well as amorphous fluid within the mid abdomen are also likely postsurgical in etiology. Otherwise, no acute abnormality within the abdomen or pelvis is identified. Bibasilar consolidation. Consider atelectasis or pneumonia to include aspiration. Hyperdensity within the gallbladder lumen either indicates vicarious excretion of previously administered contrast material or sludge/stones. TECHNICAL DOCUMENTATION: Quality ID # [id number]: Final reports with documentation of one or more dose reduction techniques (e.g., Automated exposure control, adjustment of the mA and/or kV according to patient size, use of iterative reconstruction technique) copyright 2010 [employer]- All Rights Reserved Head CT 09/30/18 00:00 IMPRESSION: 1. No significant interval changes since the prior examination dated 11/30/2017. No acute intracranial abnormality. EVIDENCE OF ACUTE STROKE: NO. KUB X-Ray 09/30/18 14:23 IMPRESSION: Ileus. Chest X-Ray 10/04/18 06:00 IMPRESSION: CARDIAC ENLARGEMENT. VASCULAR CONGESTION. Assessment & Plan - Diagnosis (1) Acute kidney injury Is this a current diagnosis for this admission?: Yes (2) Atrial fibrillation with RVR Is this a current diagnosis for this admission?: Yes (3) Morbid obesity due to excess calories Is this a current diagnosis for this admission?: Yes (4) Hypotension Qualifiers: Hypotension type: unspecified hypotension type Qualified Code(s): I95.9 - Hypotension, unspecified Is this a current diagnosis for this admission?: Yes (5) Small bowel obstruction Is this a current diagnosis for this admission?: Yes (6) Hypernatremia Is this a current diagnosis for this admission?: Yes (7) Respiratory failure Qualifiers: Chronicity: unspecified Respiratory failure complication: unspecified whether with hypoxia or hypercapnia Qualified Code(s): J96.90 - Respiratory failure, unspecified, unspecified whether with hypoxia or hypercapnia Is this a current diagnosis for this admission?: Yes (8) Sepsis following intra-abdominal surgery Is this a current diagnosis for this admission?: Yes (9) Deep vein thrombosis (DVT) of proximal vein of right lower extremity Qualifiers: Chronicity: acute Qualified Code(s): I82.4Y1 - Acute embolism and thrombosis of unspecified deep veins of right proximal lower extremity Is this a current diagnosis for this admission?: Yes (10) Ileitis, terminal Qualifiers: Digestive disease complication type: with abscess Qualified Code(s): K50.014 - Crohn's disease of small intestine with abscess Is this a current diagnosis for this admission?: Yes (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
[2018-10-06] MEDS: ATORVASTATIN CALCIUM 80 MG TABLET NG SCH (21:39)
[2018-10-06] MEDS: ARIPIPRAZOLE 5 MG TABLET NG SCH (21:40)
[2018-10-06] MEDS ORDERED: CYANOCOBALAMIN (VITAMIN B-12) INJ 1000 MCG/1 ML VIAL SUBCUT SCH (22:00)
[2018-10-07] MEDS: AMLODIPINE BESYLATE 5 MG TABLET PO SCH ×2 (09:27→21:29)
[2018-10-07] MEDS: LISINOPRIL 10 MG TABLET PO SCH ×2 (09:28→21:29)
[2018-10-07] MEDS: PAROXETINE HCL 20 MG TABLET NG SCH (09:28)
[2018-10-07] MEDS: METOPROLOL TARTRATE 50 MG TABLET NG SCH ×2 (09:28→21:29)
[2018-10-07] MEDS: BENZTROPINE MESYLATE 1 MG TABLET NG SCH ×2 (09:29→21:29)
[2018-10-07] MEDS: MAGNESIUM OXIDE 400 MG TABLET NG SCH (09:29)
[2018-10-07] MEDS: APIXABAN 5 MG TABLET PO SCH ×2 (09:29→17:24)
[2018-10-07] MEDS: CYANOCOBALAMIN (VITAMIN B-12) 1,000 MCG TABLET NG SCH (09:29)
[2018-10-07] MEDS: GUAIFENESIN SYRP 200 MG/10 ML UDC PO SCH ×2 (09:30→21:29)
[2018-10-07] MEDS: AMIODARONE HCL 200 MG TABLET NG SCH ×2 (09:30→21:29)
[2018-10-07] MEDS: DOCUSATE SODIUM 100 MG/10 ML UDC PO SCH ×2 (09:54→17:24)
[2018-10-07] MEDS: PANTOPRAZOLE SODIUM 40 MG PACKET.DR NG SCH ×2 (09:54→17:23)
[2018-10-07] MEDS: FUROSEMIDE 40 MG TABLET PO SCH (09:54)
[2018-10-07] MEDS: NITROGLYCERIN 10 MG (0.4 MG/HR) PATCH.TD24 TD SCH (09:58)
--- NOTE | 2018-10-07 20:16 | PDOC PROGRESS REPORT ---
Subjective Progress Note for:: 10/07/18 Subjective:: Patient seen by the bedside, he was seen by physical therapy today Reason For Visit: ACUTE KIDNEY INJURY,PAROXYSMAL ATRIAL FIBRILLATION Physical Exam Vital Signs: Temp Pulse Resp BP Pulse Ox 98.1 F 62 20 118/66 98 10/07/18 16:01 10/07/18 16:01 10/07/18 16:01 10/07/18 16:01 10/07/18 16:01 Intake & Output 10/06/18 10/07/18 10/08/18 06:59 06:59 06:59 Intake Total 2174 808 250 Output Total 1500 1500 730 Balance 607 -523 -918 Weight 125.5 kg 124.2 kg General appearance: PRESENT: no acute distress Eye exam: PRESENT: PERRLA Respiratory exam: PRESENT: clear to auscultation martita Cardiovascular exam: PRESENT: +S1, +S2 GI/Abdominal exam: PRESENT: soft Neurological exam: PRESENT: alert Results Laboratory Results: 10/06/18 06:35 10/06/18 06:35 09/15/18 09/15/18 09/15/18 07:07 13:30 13:30 Creatine Kinase 261 H CK-MB (CK-2) 1.63 Troponin I 0.015 0.021 NT-Pro-B Natriuret Pep 239 09/15/18 09/15/18 09/17/18 20:35 20:35 09:48 Creatine Kinase 855 H 1250 H CK-MB (CK-2) 6.56 H Troponin I 0.022 NT-Pro-B Natriuret Pep 09/17/18 09/22/18 09/27/18 09:48 03:15 04:21 Creatine Kinase CK-MB (CK-2) 3.91 Troponin I < 0.012 0.041 NT-Pro-B Natriuret Pep 978 H Impressions: Renal Ultrasound 09/15/18 00:00 IMPRESSION: No evidence hydronephrosis. Small Bowel X-Ray 09/18/18 00:00 IMPRESSION: 1. At 3 hours, much of the contrast remains in the stomach. If clinically feasible, consider positioning patient on the right side to facilitate emptying of the stomach and better opacification of the small bowel. If this can be done, consider additional follow-up radiographs in several hours. 2. There is a small amount of contrast in several distended small bowel segments, likely small bowel obstruction. However, there is not adequate opacification to determine the transition point. Abdomen/Pelvis CT 09/23/18 00:00 IMPRESSION: Postsurgical changes of midline laparotomy. Additional mild inflammatory stranding about the right lower quadrant mesentery as well as amorphous fluid within the mid abdomen are also likely postsurgical in etiology. Otherwise, no acute abnormality within the abdomen or pelvis is identified. Bibasilar consolidation. Consider atelectasis or pneumonia to include aspiration. Hyperdensity within the gallbladder lumen either indicates vicarious excretion of previously administered contrast material or sludge/stones. TECHNICAL DOCUMENTATION: Quality ID # 436: Final reports with documentation of one or more dose reduction techniques (e.g., Automated exposure control, adjustment of the mA and/or kV according to patient size, use of iterative reconstruction technique) copyright 2011 [employer]- All Rights Reserved Head CT 09/30/18 00:00 IMPRESSION: 1. No significant interval changes since the prior examination dated 11/30/2017. No acute intracranial abnormality. EVIDENCE OF ACUTE STROKE: NO. KUB X-Ray 09/30/18 14:23 IMPRESSION: Ileus. Chest X-Ray 10/04/18 06:00 IMPRESSION: CARDIAC ENLARGEMENT. VASCULAR CONGESTION. Assessment & Plan - Diagnosis (1) Acute kidney injury Is this a current diagnosis for this admission?: Yes Plan: Resolved (2) Atrial fibrillation with RVR Is this a current diagnosis for this admission?: Yes Plan: Improved/resolved (3) Morbid obesity due to excess calories Is this a current diagnosis for this admission?: Yes (4) Hypotension Qualifiers: Hypotension type: unspecified hypotension type Qualified Code(s): I95.9 - Hypotension, unspecified Is this a current diagnosis for this admission?: Yes Plan: Resolved (5) Small bowel obstruction Is this a current diagnosis for this admission?: Yes (6) Hypernatremia Is this a current diagnosis for this admission?: Yes (7) Respiratory failure Qualifiers: Chronicity: unspecified Respiratory failure complication: unspecified whether with hypoxia or hypercapnia Qualified Code(s): J96.90 - Respiratory failure, unspecified, unspecified whether with hypoxia or hypercapnia Is this a current diagnosis for this admission?: Yes (8) Sepsis following intra-abdominal surgery Is this a current diagnosis for this admission?: Yes (9) Deep vein thrombosis (DVT) of proximal vein of right lower extremity Qualifiers: Chronicity: acute Qualified Code(s): I82.4Y1 - Acute embolism and thromb osis of unspecified deep veins of right proximal lower extremity Is this a current diagnosis for this admission?: Yes Plan: Continue Eliquis (10) Ileitis, terminal Qualifiers: Digestive disease complication type: with abscess Qualified Code(s): K50.014 - Crohn's disease of small intestine with abscess Is this a current diagnosis for this admission?: Yes (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
[2018-10-07] MEDS: ATORVASTATIN CALCIUM 80 MG TABLET NG SCH (21:29)
[2018-10-07] MEDS: ARIPIPRAZOLE 5 MG TABLET NG SCH (21:29)
[2018-10-07 22:59] LABS: ABSOLUTE EOSINOPHILS # (AUTO) 0.8 10^3/uL (0.0-0.6); ABSOLUTE LYMPHOCYTES (AUTO) 1.3 10^3/uL (0.5-4.7); ABSOLUTE MONOCYTES (AUTO) 0.9 10^3/uL (0.1-1.4); ABSOLUTE NEUT (AUTO) 4.3 10^3/uL (1.7-8.2); BASOPHILS % (AUTO) 0.7 % (0-2); HEMATOCRIT 28.7 % (37.9-51.0); HEMOGLOBIN 9.4 g/dL (13.5-17.0); LYMPHOCYTES % (AUTO) 17.1 % (13-45); MEAN CORPUSCULAR HGB CONC 32.7 g/dL (32.0-36.0); MEAN CORPUSCULAR VOLUME 83 fl (80-97); MONOCYTES % (AUTO) 12.9 % (3-13); PLATELET COUNT 178 10^3/uL (150-450); RED BLOOD COUNT 3.48 10^6/uL (4.35-5.55); RED CELL DISTRIBUTION WIDTH 16.8 % (11.5-14.0); SEGMENTED NEUTROPHILS % (AUTO) 58.3 % (42-78); TOTAL CELLS COUNTED % (AUTO) 100 %; WHITE BLOOD COUNT 7.3 10^3/uL (4.0-10.5)
[2018-10-07 23:18] LABS: ALANINE AMINOTRANSFERASE 32 U/L (21-72); ALBUMIN 2.4 g/dL (3.5-5.0); ALKALINE PHOSPHATASE 86 U/L (38-126); ASPARTATE AMINO TRANSFERASE 27 U/L (17-59); BILIRUBIN,DIRECT 0.8 mg/dL (0.0-0.4); BILIRUBIN,TOTAL 1.3 mg/dL (0.2-1.3); BLOOD UREA NITROGEN 11 mg/dL (7-20); GLUCOSE 107 mg/dL (75-110); POTASSIUM 3.1 mmol/L (3.6-5.0); TOTAL PROTEIN 6.1 g/dL (6.3-8.2)
[2018-10-07 23:24] LABS: ANION GAP 5 (5-19); CARBON DIOXIDE 34 mmol/L (22-30); CHLORIDE 100 mmol/L (98-107); SODIUM 139.3 mmol/L (137-145)
[2018-10-08 06:07] LABS: ABSOLUTE EOSINOPHILS # (AUTO) 0.6 10^3/uL (0.0-0.6); ABSOLUTE LYMPHOCYTES (AUTO) 1.3 10^3/uL (0.5-4.7); ABSOLUTE MONOCYTES (AUTO) 0.9 10^3/uL (0.1-1.4); ABSOLUTE NEUT (AUTO) 6.5 10^3/uL (1.7-8.2); BASOPHILS % (AUTO) 0.4 % (0-2); EOSINOPHILS % (AUTO) 6.8 % (0-6); HEMATOCRIT 28.6 % (37.9-51.0); HEMOGLOBIN 9.2 g/dL (13.5-17.0); LYMPHOCYTES % (AUTO) 13.5 % (13-45); MEAN CORPUSCULAR HEMOGLOBIN 26.8 pg (27.0-33.4); MEAN CORPUSCULAR HGB CONC 32.3 g/dL (32.0-36.0); MEAN CORPUSCULAR VOLUME 83 fl (80-97); PLATELET COUNT 178 10^3/uL (150-450); RED BLOOD COUNT 3.45 10^6/uL (4.35-5.55); SEGMENTED NEUTROPHILS % (AUTO) 69.3 % (42-78); TOTAL CELLS COUNTED % (AUTO) 100 %; WHITE BLOOD COUNT 9.4 10^3/uL (4.0-10.5)
[2018-10-08 06:28] LABS: ALANINE AMINOTRANSFERASE 24 U/L (21-72); ALBUMIN 2.5 g/dL (3.5-5.0); ALKALINE PHOSPHATASE 89 U/L (38-126); ANION GAP 6 (5-19); ASPARTATE AMINO TRANSFERASE 26 U/L (17-59); BILIRUBIN,DIRECT 0.9 mg/dL (0.0-0.4); BILIRUBIN,TOTAL 1.6 mg/dL (0.2-1.3); BLOOD UREA NITROGEN 11 mg/dL (7-20); CALCIUM 8.2 mg/dL (8.4-10.2); CARBON DIOXIDE 33 mmol/L (22-30); CHLORIDE 102 mmol/L (98-107); GLUCOSE 102 mg/dL (75-110); POTASSIUM 3.2 mmol/L (3.6-5.0)
[2018-10-08] MEDS: FUROSEMIDE 40 MG TABLET PO SCH (07:58)
[2018-10-08] MEDS: PANTOPRAZOLE SODIUM 40 MG PACKET.DR NG SCH ×2 (07:59→17:00)
[2018-10-08] MEDS: ACETAMINOPHEN SOLN 325 MG/10.15 ML UDCUP NG PRN (09:30)
[2018-10-08] MEDS: GUAIFENESIN SYRP 200 MG/10 ML UDC PO SCH ×2 (09:30→22:09)
[2018-10-08] MEDS: LISINOPRIL 10 MG TABLET PO SCH ×2 (09:31→22:09)
[2018-10-08] MEDS: AMLODIPINE BESYLATE 5 MG TABLET PO SCH ×2 (09:31→22:09)
[2018-10-08] MEDS: APIXABAN 5 MG TABLET PO SCH ×2 (09:32→17:03)
[2018-10-08] MEDS: AMIODARONE HCL 200 MG TABLET NG SCH ×2 (09:33→22:10)
[2018-10-08] MEDS: MAGNESIUM OXIDE 400 MG TABLET NG SCH (09:33)
[2018-10-08] MEDS: CYANOCOBALAMIN (VITAMIN B-12) 1,000 MCG TABLET NG SCH (09:34)
[2018-10-08] MEDS: METOPROLOL TARTRATE 50 MG TABLET NG SCH ×2 (09:34→22:09)
[2018-10-08] MEDS: PAROXETINE HCL 20 MG TABLET NG SCH (09:34)
[2018-10-08] MEDS: NITROGLYCERIN 10 MG (0.4 MG/HR) PATCH.TD24 TD SCH (09:35)
[2018-10-08] MEDS: BENZTROPINE MESYLATE 1 MG TABLET NG SCH ×2 (09:35→22:09)
[2018-10-08] MEDS: DOCUSATE SODIUM 100 MG/10 ML UDC PO SCH ×2 (09:38→17:01)
--- NOTE | 2018-10-08 18:08 | PDOC PROGRESS REPORT ---
Subjective Progress Note for:: 10/08/18 Subjective:: Patient was seen by the bedside he wants to go home, I attempted to walk patient, he literally fell on his back, he has no strength, extremely floppy, he definitely need to go to rehab, it is not safe to discharge this patient home at this time. He also has wound dehiscence on the anterior abdominal wall Reason For Visit: ACUTE KIDNEY INJURY,PAROXYSMAL ATRIAL FIBRILLATION Physical Exam Vital Signs: Temp Pulse Resp BP Pulse Ox 99.2 F 61 20 118/74 98 10/08/18 12:39 10/08/18 14:00 10/08/18 12:39 10/08/18 12:39 10/08/18 12:39 Intake & Output 10/07/18 10/08/18 10/09/18 06:59 06:59 06:59 Intake Total 808 250 Output Total 1500 1180 Balance -692 -930 Weight 124.2 kg 125.1 kg General appearance: PRESENT: no acute distress Eye exam: PRESENT: PERRLA Respiratory exam: PRESENT: clear to auscultation martita Cardiovascular exam: PRESENT: +S1, +S2 GI/Abdominal exam: PRESENT: soft, other - wound dehiscence Neurological exam: PRESENT: alert Results Laboratory Results: 10/08/18 05:30 10/08/18 05:30 10/07/18 10/07/18 10/08/18 22:30 22:30 05:30 WBC 7.3 9.4 RBC 3.48 L 3.45 L Hgb 9.4 L 9.2 L Hct 28.7 L 28.6 L MCV 83 83 MCH 27.0 26.8 L MCHC 32.7 32.3 RDW 16.8 H 17.0 H Plt Count 178 178 Seg Neutrophils % 58.3 69.3 Lymphocytes % 17.1 13.5 Monocytes % 12.9 10.0 Eosinophils % 11.0 H 6.8 H Basophils % 0.7 0.4 Absolute Neutrophils 4.3 6.5 Absolute Lymphocytes 1.3 1.3 Absolute Monocytes 0.9 0.9 Absolute Eosinophils 0.8 H 0.6 Absolute Basophils 0.0 0.0 Sodium 139.3 Potassium 3.1 L Chloride 100 Carbon Dioxide 34 H Anion Gap 5 BUN 11 Creatinine 1.21 Est GFR ( Amer) > 60 Est GFR (Non-Af Amer) > 60 Glucose 107 Calcium 8.0 L Total Bilirubin 1.3 AST 27 ALT 32 Alkaline Phosphatase 86 Total Protein 6.1 L Albumin 2.4 L 10/08/18 05:30 WBC RBC Hgb Hct MCV MCH MCHC RDW Plt Count Seg Neutrophils % Lymphocytes % Monocytes % Eosinophils % Basophils % Absolute Neutrophils Absolute Lymphocytes Absolute Monocytes Absolute Eosinophils Absolute Basophils Sodium 141.0 Potassium 3.2 L Chloride 102 Carbon Dioxide 33 H Anion Gap 6 BUN 11 Creatinine 1.24 Est GFR ( Amer) > 60 Est GFR (Non-Af Amer) 59 L Glucose 102 Calcium 8.2 L Total Bilirubin 1.6 H AST 26 ALT 24 Alkaline Phosphatase 89 Total Protein 6.0 L Albumin 2.5 L 09/15/18 09/15/18 09/15/18 07:07 13:30 13:30 Creatine Kinase 261 H CK-MB (CK-2) 1.63 Troponin I 0.015 0.021 NT-Pro-B Natriuret Pep 239 09/15/18 09/15/18 09/17/18 20:35 20:35 09:48 Creatine Kinase 855 H 1250 H CK-MB (CK-2) 6.56 H Troponin I 0.022 NT-Pro-B Natriuret Pep 09/17/18 09/22/18 09/27/18 09:48 03:15 04:21 Creatine Kinase CK-MB (CK-2) 3.91 Troponin I < 0.012 0.041 NT-Pro-B Natriuret Pep 978 H Impressions: Renal Ultrasound 09/15/18 00:00 IMPRESSION: No evidence hydronephrosis. Small Bowel X-Ray 09/18/18 00:00 IMPRESSION: 1. At 3 hours, much of the contrast remains in the stomach. If clinically feasible, consider positioning patient on the right side to facilitate emptying of the stomach and better opacification of the small bowel. If this can be done, consider additional follow-up radiographs in several hours. 2. There is a small amount of contrast in several distended small bowel segments, likely small bowel obstruction. However, there is not adequate opacification to determine the transition point. Abdomen/Pelvis CT 09/23/18 00:00 IMPRESSION: Postsurgical changes of midline laparotomy. Additional mild inflammatory stranding about the right lower quadrant mesentery as well as amorphous fluid within the mid abdomen are also likely postsurgical in etiology. Otherwise, no acute abnormality within the abdomen or pelvis is identified. Bibasilar consolidation. Consider atelectasis or pneumonia to include aspiration. Hyperdensity within the gallbladder lumen either indicates vicarious excretion of previously administered contrast material or sludge/stones. TECHNICAL DOCUMENTATION: Quality ID # [id number]: Final reports with documentation of one or more dose reduction techniques (e.g., Automated exposure control, adjustment of the mA and/or kV according to patient size, use of iterative reconstruction technique) copyright 2011 [employer]- All Rights Reserved Head CT 09/30/18 00:00 IMPRESSION: 1. No significant interval changes since the prior examination dated 11/30/2017. No acute intracranial abnormality. EVIDENCE OF ACUTE STROKE: NO. KUB X-Ray 09/30/18 14:23 IMPRESSION: Ileus. Chest X-Ray 10/04/18 06:00 IMPRESSION: CARDIAC ENLARGEMENT. VASCULAR CONGESTION. Assessment & Plan - Diagnosis (1) Acute kidney injury Is this a current diagnosis for this admission?: Yes (2) Atrial fibrillation with RVR Is this a current diagnosis for this admission?: Yes (3) Morbid obesity due to excess calories Is this a current diagnosis for this admission?: Yes (4) Hypotension Qualifiers: Hypotension type: unspecified hypotension type Qualified Code(s): I95.9 - Hypotension, unspecified Is this a current diagnosis for this admission?: Yes (5) Small bowel obstruction Is this a current diagnosis for this admission?: Yes (6) Hypernatremia Is this a current diagnosis for this admission?: Yes (7) Respiratory failure Qualifiers: Chronicity: unspecified Respiratory failure complication: unspecified whether with hypoxia or hypercapnia Qualified Code(s): J96.90 - Respiratory failure, unspecified, unspecified whether with hypoxia or hypercapnia Is this a current diagnosis for this admission?: Yes (8) Sepsis following intra-abdominal surgery Is this a current diagnosis for this admission?: Yes (9) Deep vein thrombosis (DVT) of proximal vein of right lower extremity Qualifiers: Chronicity: acute Qualified Code(s): I82.4Y1 - Acute embolism and thrombosis of unspecified deep veins of right proximal lower extremity Is this a current diagnosis for this admission?: Yes (10) Ileitis, terminal Qualifiers: Digestive disease complication type: with abscess Qualified Code(s): K50.014 - Crohn's disease of small intestine with abscess Is this a current diagnosis for this admission?: Yes (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
[2018-10-08] MEDS: NORMAL SALINE 1000 ML 1,000 ML IV PRN (20:21)
[2018-10-08] MEDS: POTASSI CL 20 MEQ/50 ML RIDER 20 MEQ/50 ML RTUPB IV SCH ×2 (20:24→22:15)
[2018-10-08] MEDS: ATORVASTATIN CALCIUM 80 MG TABLET NG SCH (22:09)
[2018-10-08] MEDS: ARIPIPRAZOLE 5 MG TABLET NG SCH (22:10)
[2018-10-09] MEDS: PAROXETINE HCL 20 MG TABLET NG SCH (09:12)
[2018-10-09] MEDS: BENZTROPINE MESYLATE 1 MG TABLET NG SCH ×2 (09:12→21:21)
[2018-10-09] MEDS: METOPROLOL TARTRATE 50 MG TABLET NG SCH ×2 (09:12→21:21)
[2018-10-09] MEDS: FUROSEMIDE 40 MG TABLET PO SCH (09:12)
[2018-10-09] MEDS: AMIODARONE HCL 200 MG TABLET NG SCH ×2 (09:12→21:21)
[2018-10-09] MEDS: LISINOPRIL 10 MG TABLET PO SCH ×2 (09:12→21:20)
[2018-10-09] MEDS: AMLODIPINE BESYLATE 5 MG TABLET PO SCH ×2 (09:12→21:21)
[2018-10-09] MEDS: CYANOCOBALAMIN (VITAMIN B-12) 1,000 MCG TABLET NG SCH (09:12)
[2018-10-09] MEDS: MAGNESIUM OXIDE 400 MG TABLET NG SCH (09:12)
[2018-10-09] MEDS: APIXABAN 5 MG TABLET PO SCH ×2 (09:12→17:50)
[2018-10-09] MEDS: GUAIFENESIN SYRP 200 MG/10 ML UDC PO SCH ×2 (09:13→21:21)
[2018-10-09] MEDS: DOCUSATE SODIUM 100 MG/10 ML UDC PO SCH ×2 (09:13→17:50)
[2018-10-09] MEDS: NITROGLYCERIN 10 MG (0.4 MG/HR) PATCH.TD24 TD SCH (09:13)
[2018-10-09] MEDS: PANTOPRAZOLE SODIUM 40 MG PACKET.DR NG SCH ×2 (09:20→17:50)
[2018-10-09] MEDS: ARIPIPRAZOLE 5 MG TABLET NG SCH (21:21)
[2018-10-09] MEDS: ATORVASTATIN CALCIUM 80 MG TABLET NG SCH (21:21)
--- NOTE | 2018-10-09 21:40 | PDOC PROGRESS REPORT ---
Subjective Progress Note for:: 10/09/18 Subjective:: Patient seen by the bedside,he continues to be deconditioned ,he needs physical therapy and rehabilitation Reason For Visit: ACUTE KIDNEY INJURY,PAROXYSMAL ATRIAL FIBRILLATION Physical Exam Vital Signs: Temp Pulse Resp BP Pulse Ox 98.3 F 71 20 135/78 H 99 10/09/18 12:02 10/09/18 14:00 10/09/18 12:02 10/09/18 12:02 10/09/18 12:02 Intake & Output 10/08/18 10/09/18 10/10/18 06:59 06:59 06:59 Intake Total 1250 746 Output Total 1180 1075 Balance 70 -329 Weight 125.1 kg 126 kg General appearance: PRESENT: no acute distress Eye exam: PRESENT: PERRLA Respiratory exam: PRESENT: clear to auscultation martita Cardiovascular exam: PRESENT: +S1, +S2 GI/Abdominal exam: PRESENT: soft Neurological exam: PRESENT: alert Results Laboratory Results: 10/08/18 05:30 10/08/18 05:30 09/15/18 09/15/18 09/15/18 07:07 13:30 13:30 Creatine Kinase 261 H CK-MB (CK-2) 1.63 Troponin I 0.015 0.021 NT-Pro-B Natriuret Pep 239 09/15/18 09/15/18 09/17/18 20:35 20:35 09:48 Creatine Kinase 855 H 1250 H CK-MB (CK-2) 6.56 H Troponin I 0.022 NT-Pro-B Natriuret Pep 09/17/18 09/22/18 09/27/18 09:48 03:15 04:21 Creatine Kinase CK-MB (CK-2) 3.91 Troponin I < 0.012 0.041 NT-Pro-B Natriuret Pep 978 H Impressions: Renal Ultrasound 09/15/18 00:00 IMPRESSION: No evidence hydronephrosis. Small Bowel X-Ray 09/18/18 00:00 IMPRESSION: 1. At 3 hours, much of the contrast remains in the stomach. If clinically feasible, consider positioning patient on the right side to facilitate emptying of the stomach and better opacification of the small bowel. If this can be done, consider additional follow-up radiographs in several hours. 2. There is a small amount of contrast in several distended small bowel segments, likely small bowel obstruction. However, there is not adequate opacification to determine the transition point. Abdomen/Pelvis CT 09/23/18 00:00 IMPRESSION: Postsurgical changes of midline laparotomy. Additional mild inflammatory stranding about the right lower quadrant mesentery as well as amorphous fluid within the mid abdomen are also likely postsurgical in etiology. Otherwise, no acute abnormality within the abdomen or pelvis is identified. Bibasilar consolidation. Consider atelectasis or pneumonia to include aspiration. Hyperdensity within the gallbladder lumen either indicates vicarious excretion of previously administered contrast material or sludge/stones. TECHNICAL DOCUMENTATION: Quality ID # 436: Final reports with documentation of one or more dose reduction techniques (e.g., Automated exposure control, adjustment of the mA and/or kV according to patient size, use of iterative reconstruction technique) copyright 2010 [employer]- All Rights Reserved Head CT 09/30/18 00:00 IMPRESSION: 1. No significant interval changes since the prior examination dated 11/30/2017. No acute intracranial abnormality. EVIDENCE OF ACUTE STROKE: NO. KUB X-Ray 09/30/18 14:23 IMPRESSION: Ileus. Chest X-Ray 10/04/18 06:00 IMPRESSION: CARDIAC ENLARGEMENT. VASCULAR CONGESTION. Assessment & Plan - Diagnosis (1) Acute kidney injury Is this a current diagnosis for this admission?: Yes (2) Atrial fibrillation with RVR Is this a current diagnosis for this admission?: Yes (3) Morbid obesity due to excess calories Is this a current diagnosis for this admission?: Yes (4) Hypotension Qualifiers: Hypotension type: unspecified hypotension type Qualified Code(s): I95.9 - Hypotension, unspecified Is this a current diagnosis for this admission?: Yes (5) Small bowel obstruction Is this a current diagnosis for this admission?: Yes (6) Hypernatremia Is this a current diagnosis for this admission?: Yes (7) Respiratory failure Qualifiers: Chronicity: unspecified Respiratory failure complication: unspecified whether with hypoxia or hypercapnia Qualified Code(s): J96.90 - Respiratory failure, unspecified, unspecified whether with hypoxia or hypercapnia Is this a current diagnosis for this admission?: Yes (8) Sepsis following intra-abdominal surgery Is this a current diagnosis for this admission?: Yes (9) Deep vein thrombosis (DVT) of proximal vein of right lower extremity Qualifiers: Chronicity: acute Qualified Code(s): I82.4Y1 - Acute embolism and thrombosis of unspecified deep veins of right proximal lower extremity Is this a current diagnosis for this admission?: Yes (10) Ileitis, terminal Qualifiers: Digestive disease complication type: with abscess Qualified Code(s): K50.014 - Crohn's disease of small intestine with abscess Is this a current diagnosis for this admission?: Yes (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
[2018-10-10 00:55] LABS: ALANINE AMINOTRANSFERASE 33 U/L (21-72); ALBUMIN 2.7 g/dL (3.5-5.0); ALKALINE PHOSPHATASE 91 U/L (38-126); ASPARTATE AMINO TRANSFERASE 28 U/L (17-59); BILIRUBIN,DIRECT 0.8 mg/dL (0.0-0.4); BILIRUBIN,TOTAL 1.2 mg/dL (0.2-1.3); BLOOD UREA NITROGEN 9 mg/dL (7-20); CALCIUM 8.2 mg/dL (8.4-10.2); CARBON DIOXIDE 34 mmol/L (22-30); CHLORIDE 99 mmol/L (98-107); GLUCOSE 105 mg/dL (75-110); POTASSIUM 3.2 mmol/L (3.6-5.0); TOTAL PROTEIN 6.5 g/dL (6.3-8.2)
[2018-10-10 01:07] LABS: ANION GAP 5 (5-19)
[2018-10-10] MEDS: GUAIFENESIN SYRP 200 MG/10 ML UDC PO SCH (10:48)
[2018-10-10] MEDS: METOPROLOL TARTRATE 50 MG TABLET NG SCH (10:49)
[2018-10-10] MEDS: APIXABAN 5 MG TABLET PO SCH (10:49)
[2018-10-10] MEDS: NITROGLYCERIN 10 MG (0.4 MG/HR) PATCH.TD24 TD SCH (10:49)
[2018-10-10] MEDS: MAGNESIUM OXIDE 400 MG TABLET NG SCH (10:49)
[2018-10-10] MEDS: CYANOCOBALAMIN (VITAMIN B-12) 1,000 MCG TABLET NG SCH (10:50)
[2018-10-10] MEDS: AMLODIPINE BESYLATE 5 MG TABLET PO SCH (10:50)
[2018-10-10] MEDS: BENZTROPINE MESYLATE 1 MG TABLET NG SCH (10:50)
[2018-10-10] MEDS: FUROSEMIDE 40 MG TABLET PO SCH (10:50)
[2018-10-10] MEDS: LISINOPRIL 10 MG TABLET PO SCH (10:50)
[2018-10-10] MEDS: PAROXETINE HCL 20 MG TABLET NG SCH (10:51)
[2018-10-10] MEDS: DOCUSATE SODIUM 100 MG/10 ML UDC PO SCH (10:51)
[2018-10-10] MEDS: AMIODARONE HCL 200 MG TABLET NG SCH (10:51)
[2018-10-10] MEDS: PANTOPRAZOLE SODIUM 40 MG PACKET.DR NG SCH (10:51)
--- NOTE | 2018-10-10 13:09 | PDOC DISCHARGE SUMMARY ---
General - Admit/Disc Date/PCP Admission Date/Primary Care Provider: 09/15/18 08:48 CARMEN GANT MD Discharge Date: 10/10/18 - Discharge Diagnosis (1) Acute kidney injury Is this a current diagnosis for this admission?: Yes (2) Acute tubular necrosis Is this a current diagnosis for this admission?: Yes (3) Atrial fibrillation with RVR Is this a current diagnosis for this admission?: Yes (4) Morbid obesity due to excess calories Is this a current diagnosis for this admission?: Yes (5) Hypotension Is this a current diagnosis for this admission?: Yes (6) Small bowel obstruction Is this a current diagnosis for this admission?: Yes (7) Hypernatremia Is this a current diagnosis for this admission?: Yes (8) Respiratory failure Is this a current diagnosis for this admission?: Yes (9) Sepsis following intra-abdominal surgery Is this a current diagnosis for this admission?: Yes (10) Deep vein thrombosis (DVT) of proximal vein of right lower extremity Is this a current diagnosis for this admission?: Yes (11) Ileitis, terminal Is this a current diagnosis for this admission?: Yes (12) Ulcer of ileum Is this a current diagnosis for this admission?: Yes (13) Ileus Is this a current diagnosis for this admission?: Yes - Additional Information Resuscitation Status: Full Code Prescriptions: Apixaban [Eliquis 5 mg Tablet] 5 mg PO BID #60 tablet Home Medications: Albuterol Sulfate [Proair HFA Inhalation Aerosol 8.5 gm MDI] 2 puff IH Q6HP PRN 10/02/17 Aripiprazole [Abilify 30 mg Tablet] 30 mg PO QHS 10/02/17 Budesonide/Formoterol Fumarate [Symbicort 160-4.5 Mcg Inhaler] 2 puff IH Q12 10/02/17 Clonazepam [Klonopin 1 mg Tablet] 1 mg PO Q12 10/02/17 Fluticasone Propionate [Flonase Nasal [employer] 50 Mcg/[employer] 16 gm] 1 spray NAREB BID 10/02/17 Lisinopril [Prinivil 10 mg Tablet] 40 mg PO DAILY 10/02/17 Metoprolol Tartrate [Lopressor 50 mg Tablet] 50 mg PO Q12 10/02/17 Amlodipine Besylate [Norvasc 10 mg Tablet] 10 mg PO DAILY 09/15/18 Atorvastatin Calcium [Lipitor 80 mg Tablet] 80 mg PO QHS 09/15/18 Benztropine Mesylate [Cogentin 1 mg Tablet] 1 mg PO Q12 09/15/18 Cyanocobalamin (Vitamin B-12) [Vitamin B-12 1000 mcg Tablet] 1,000 mcg PO DAILY 09/15/18 Dofetilide [Tikosyn] 250 mcg PO Q12 09/15/18 Furosemide [Lasix 40 mg Tablet] 40 mg PO QAM 09/15/18 Isosorbide Mononitrate [Imdur 30 mg Tablet.er] 30 mg PO DAILY 09/15/18 Magnesium Oxide [Mag-Ox 400 mg Tablet] 400 mg PO DAILY 09/15/18 Omeprazole 20 mg PO BIDACBS 09/15/18 Paroxetine HCl [Paxil 20 mg Tablet] 20 mg PO DAILY 09/15/18 Tamsulosin HCl [Flomax 0.4 mg Cap.sr] 0.4 mg PO DAILY 09/15/18 Apixaban [Eliquis 5 mg Tablet] 5 mg PO BID #60 tablet 10/10/18 Nitroglycerin [Nitro-Dur 10 mg (0.4MG/Hr) Transdermal Patch] 1 each TD DAILY patch.td24 10/10/18 History of Present Illness History of Present Illness: KRISH RAMOS JR is a 63 year old male, He has a history of paroxysmal a trial fibrillation, hypertension, nonobstructive coronary artery disease, history of obstructive sleep apnea he came to the emergency room for evaluation of abdominal pain, in the emergency room he apparently developed atrial fibrillation with rapid ventricular response with associated hypotension he apparently was cardioverted in the emergency room and subsequently started on amiodarone drip. A CT scan of the abdomen and pelvis was done without contrast was done in the emergency room ,CT scan demonstrated a focal area of inflammatory changes in the bowel that was consistent with diverticulitis he was also found to have elevated serum creatinine, that suggest acute kidney injury but there is no indication for immediate kidney replacement therapy, there was no acidosis, no hyperkalemia, nephrology was consulted by the ED physician.Patient have multiple comorbid conditions, is very obese with abdominal fat Hospital Course Hospital Course: Patient was admitted for the management of abdominal pain, paroxysmal atrial fibrillation with rapid ventricular response, hypotension. In the emergency room a CAT scan of the abdomen and pelvis without contrast was obtained, it demonstrated a focal area of inflammatory changes associated with the bowel just to the left of the midline suggestive of diverticulitis. He was managed with IV antibiotic there was associated low blood pressure, he developed atrial fibrillation with rapid r ventricular response.He required cardioversion to restore normal hemodynamiics.He had acute kidney injury, on admission the serum creatinine was 4 with a background of low blood pressure it was felt that he may have ATN. He was followed on this admission by nephrology did not require renal replacement therapyHe has underlying paroxysmal it fibrillation on chronic anticoagulation with Xarelto. Subsequent abdominal series that was done suggest obstruction of the small bowel, repeat CT scan of the abdomen and pelvis was done that demonstrated obstruction of the small intestine there was no definitive transition point demonstrated, patient was offered laparotomy but he refused initially.He ultimately consented to laparotomy, he was taken to the OR on 09/21/2018. He underwent exploratory laparotomy he was found to have inflamed terminal ileum that was strictured he underwent ileocecectomy.He had a prolonged postoperative course in intensive care unit, he was on mechanical ventilation, he developed extensive right-sided deep vein thrombosis Requiring IV heparin.Patient was ultimately extubated and transferred to the medical floor/stepdown unit IM.Patient is very deconditioned, he needed rehabilitation with physical therapy but he refused to be transferred to a facility for that, he preferred to go home with PT/OT and home health Physical Exam Vital Signs: Temp Pulse Resp BP Pulse Ox 98.0 F 69 22 H 127/75 H 97 10/10/18 11:28 10/10/18 11:28 10/10/18 11:28 10/10/18 11:28 10/10/18 11:28 Intake & Output 10/09/18 10/10/18 10/11/18 06:59 06:59 06:59 Intake Total 746 Output Total 1075 1400 Balance -329 -1400 Weight 126 kg 123.7 kg General appearance: PRESENT: no acute distress Eye exam: PRESENT: PERRLA Respiratory exam: PRESENT: clear to auscultation martita Cardiovascular exam: PRESENT: +S1, +S2 GI/Abdominal exam: PRESENT: soft Neurological exam: PRESENT: alert Results Laboratory Results: 10/08/18 05:30 10/09/18 23:28 10/09/18 23:28 Sodium 138.0 Potassium 3.2 L Chloride 99 Carbon Dioxide 34 H Anion Gap 5 BUN 9 Creatinine 1.21 Est GFR ( Amer) > 60 Est GFR (Non-Af Amer) > 60 Glucose 105 Calcium 8.2 L Total Bilirubin 1.2 AST 28 ALT 33 Alkaline Phosphatase 91 Total Protein 6.5 Albumin 2.7 L 09/15/18 09/15/18 09/15/18 07:07 13:30 13:30 Creatine Kinase 261 H CK-MB (CK-2) 1.63 Troponin I 0.015 0.021 NT-Pro-B Natriuret Pep 239 09/15/18 09/15/18 09/17/18 20:35 20:35 09:48 Creatine Kinase 855 H 1250 H CK-MB (CK-2) 6.56 H Troponin I 0.022 NT-Pro-B Natriuret Pep 09/17/18 09/22/18 09/27/18 09:48 03:15 04:21 Creatine Kinase CK-MB (CK-2) 3.91 Troponin I < 0.012 0.041 NT-Pro-B Natriuret Pep 978 H Impressions: Renal Ultrasound 09/15/18 00:00 IMPRESSION: No evidence hydronephrosis. Small Bowel X-Ray 09/18/18 00:00 IMPRESSION: 1. At 3 hours, much of the contrast remains in the stomach. If clinically feasible, consider positioning patient on the right side to facilitate emptying of the stomach and better opacification of the small bowel. If this can be done, consider additional follow-up radiographs in several hours. 2. There is a small amount of contrast in several distended small bowel segments, likely small bowel obstruction. However, there is not adequate opacification to determine the transition point. Abdomen/Pelvis CT 09/23/18 00:00 IMPRESSION: Postsurgical changes of midline laparotomy. Additional mild inflammatory stranding about the right lower quadrant mesentery as well as amorphous fluid within the mid abdomen are also likely postsurgical in etiology. Otherwise, no acute abnormality within the abdomen or pelvis is identified. Bibasilar consolidation. Consider atelectasis or pneumonia to include aspiration. Hyperdensity within the gallbladder lumen either indicates vicarious excretion of previously administered contrast material or sludge/stones. TECHNICAL DOCUMENTATION: Quality ID # [id number]: Final reports with documentation of one or more dose reduction techniques (e.g., Automated exposure control, adjustment of the mA and/or kV according to patient size, use of iterative reconstruction technique) copyright 2010 [employer]- All Rights Reserved Head CT 09/30/18 00:00 IMPRESSION: 1. No significant interval changes since the prior examination dated 11/30/2017. No acute intracranial abnormality. EVIDENCE OF ACUTE STROKE: NO. KUB X-Ray 09/30/18 14:23 IMPRESSION: Ileus. Chest X-Ray 10/04/18 06:00 IMPRESSION: CARDIAC ENLARGEMENT. VASCULAR CONGESTION. Qualifiers - * PATIENT BEING DISCHARGED WITH ANY OF THE FOLLOWING DIAGNOSIS: No Acute Heart Failure Is this a Heart Failure Patient?: No
[2018-10-10 15:42] VITALS: BP 160/80
== END 2018-10-10 16:06 | disposition home or self-care (01) | DRG 329 ==
LOC: ER 06:19 → EH 08:48 → UNDODISIN 19:02 → 3S 19:13 → ICU 09-21 13:40 → 3W 10-03 20:35
PROVIDERS: ADMIT Internal Medicine; ATTEND Internal Medicine
PROC: 5A2204Z Restoration of Cardiac Rhythm, Single (ICD-10-PCS; 2018-09-15)
PROC: 5A2204Z Restoration of Cardiac Rhythm, Single (ICD-10-PCS; 2018-09-17)
PROC: 0DTH0ZZ Resection of Cecum, Open Approach (ICD-10-PCS; principal; 2018-09-24)
PROC: 05HM33Z Insertion of Infusion Device into Right Internal Jugular Vein, Percutaneous Approach (ICD-10-PCS; 2018-09-24)
PROC: B543ZZA Ultrasonography of Right Jugular Veins, Guidance (ICD-10-PCS; 2018-09-24)
DX: K56.699 Other intestinal obstruction unspecified as to partial versus complete obstruction (principal); N17.0 Acute kidney failure with tubular necrosis; J96.01 Acute respiratory failure with hypoxia; A41.9 Sepsis, unspecified organism; K63.3 Ulcer of intestine; E87.0 Hyperosmolality and hypernatremia; I42.9 Cardiomyopathy, unspecified; J44.1 Chronic obstructive pulmonary disease with (acute) exacerbation; Z68.41 Body mass index [BMI] 40.0-44.9, adult; I82.4Z1 Acute embolism and thrombosis of unspecified deep veins of right distal lower extremity; K50.014 Crohn's disease of small intestine with abscess; K31.0 Acute dilatation of stomach; T81.31XA Disruption of external operation (surgical) wound, not elsewhere classified, initial encounter; R34 Anuria and oliguria; Z99.81 Dependence on supplemental oxygen; I95.9 Hypotension, unspecified; I48.0 Paroxysmal atrial fibrillation; E66.01 Morbid (severe) obesity due to excess calories; I48.2 Chronic atrial fibrillation; F25.9 Schizoaffective disorder, unspecified; E83.51 Hypocalcemia; K52.9 Noninfective gastroenteritis and colitis, unspecified; I10 Essential (primary) hypertension; I25.10 Atherosclerotic heart disease of native coronary artery without angina pectoris; G47.33 Obstructive sleep apnea (adult) (pediatric); I73.9 Peripheral vascular disease, unspecified; K44.9 Diaphragmatic hernia without obstruction or gangrene; D64.9 Anemia, unspecified; E86.0 Dehydration; R58 Hemorrhage, not elsewhere classified; R00.0 Tachycardia, unspecified; E87.6 Hypokalemia; N40.1 Benign prostatic hyperplasia with lower urinary tract symptoms; R33.8 Other retention of urine; E78.5 Hyperlipidemia, unspecified; M19.90 Unspecified osteoarthritis, unspecified site; K21.9 Gastro-esophageal reflux disease without esophagitis; F32.9 Major depressive disorder, single episode, unspecified; F43.10 Post-traumatic stress disorder, unspecified; Z79.01 Long term (current) use of anticoagulants; I25.2 Old myocardial infarction; Z95.810 Presence of automatic (implantable) cardiac defibrillator; Z91.040 Latex allergy status; I69.322 Dysarthria following cerebral infarction; Z87.01 Personal history of pneumonia (recurrent); Z91.19 Patient's noncompliance with other medical treatment and regimen; Z79.51 Long term (current) use of inhaled steroids; Z83.3 Family history of diabetes mellitus; Z82.49 Family history of ischemic heart disease and other diseases of the circulatory system; Z83.438 Family history of other disorder of lipoprotein metabolism and other lipidemia; Z82.61 Family history of arthritis; Z82.3 Family history of stroke
CPT/HCPCS: 00790; 31500; 36415; 70450; 71045; 74018; 74176; 74250; 76775; 80048; 80053; 80307; 81001; 82140; 82150; 82272; 82550; 82553; 82803; 82962; 83605; 83690; 83735; 83880; 84100; 84439; 84443; 84478; 84481; 84484; 85025; 85027; 85610; 85730; 87040; 87070; 87086; 87205; 87493; 88307; 93005; 93010; 93971; 94002; 94003; 94660; 96365; 96366; 96375; 96376; 99291; A6266; C1751; C1758; J0131; J0153; J0282; J0330; J0360; J0610; J0696; J0743; J1160; J1170; J1250; J1644; J1650; J1940; J2250; J2704; J2765; J3010; J3420; J3480; J3490; J7030; J7040; J7050; J7060; S0164

== ENCOUNTER 2020-03-05 07:51 | Observation (INO) | payer OTHER, MEDICARE ==
--- NOTE | 2020-03-05 08:26 | EKG REPORT ---
SEVERITY:- ABNORMAL ECG - SINUS RHYTHM INCOMPLETE LEFT BUNDLE BRANCH BLOCK PROBABLE LEFT VENTRICULAR HYPERTROPHY NONSPECIFIC ST-T CHANGES- INFERIOR LEADS : Confirmed by: Chris Barros MD 05-Mar-2020 08:25:31
[2020-03-05 08:28] LABS: ABSOLUTE EOSINOPHILS # (AUTO) 0.3 10^3/uL (0.0-0.6); ABSOLUTE LYMPHOCYTES (AUTO) 2.7 10^3/uL (0.5-4.7); ABSOLUTE MONOCYTES (AUTO) 0.7 10^3/uL (0.1-1.4); ABSOLUTE NEUT (AUTO) 2.4 10^3/uL (1.7-8.2); BASOPHILS % (AUTO) 0.4 % (0-2); EOSINOPHILS % (AUTO) 4.3 % (0-6); HEMATOCRIT 40.5 % (37.9-51.0); HEMOGLOBIN 13.4 g/dL (13.5-17.0); LYMPHOCYTES % (AUTO) 44.5 % (13-45); MEAN CORPUSCULAR HEMOGLOBIN 26.7 pg (27.0-33.4); MEAN CORPUSCULAR HGB CONC 33.1 g/dL (32.0-36.0); MEAN CORPUSCULAR VOLUME 81 fl (80-97); MONOCYTES % (AUTO) 11.7 % (3-13); PLATELET COUNT 112 10^3/uL (150-450); RED BLOOD COUNT 5.03 10^6/uL (4.35-5.55); RED CELL DISTRIBUTION WIDTH 17.2 % (11.5-14.0); SEGMENTED NEUTROPHILS % (AUTO) 39.1 % (42-78); TOTAL CELLS COUNTED % (AUTO) 100 %; WHITE BLOOD COUNT 6.2 10^3/uL (4.0-10.5)
[2020-03-05] MEDS ORDERED: MORPHINE SULFATE 10 MG/ML INJ IV ONE ×2 (08:29→11:08)
[2020-03-05] MEDS ORDERED: NITROGLYCERIN 0.4 MG/TAB 25 TAB/BOTTLE SL ONE (08:29)
[2020-03-05] MEDS ORDERED: ONDANSETRON HCL INJ/PF 4 MG/2 ML SDV IV ONE (08:29)
--- NOTE | 2020-03-05 08:31 | ER Document Report ---
ED General - General Chief Complaint: Chest Pain Stated Complaint: CHEST PAIN Time Seen by Provider: 03/05/20 08:07 TRAVEL OUTSIDE OF THE [place] IN LAST 30 DAYS: No - HPI Notes: 64-year-old male with a history of CAD, hypertension, TIA, obesity, COPD, A. 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 Reports that pain radiates to his neck his back and down his arm. patient was given (2) 0.4mg nitro tablets via EMS as well as baby aspirin, which did diminish his chest pain, but not completely resolved his chest pain. patient reports that his chest pain is sharp and shooting, reports it does radiate to his neck back and arm, denies any numbness or tingling. Denies any nausea vomiting, abdominal pain, headache, blurred vision double vision loss of vision. Denies any facial numbness or tingling. Reports he did have a normal bowel movement yesterday. 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 States his last stress test was in 2015. Patient is eating and drinking without any is sues. Patient is anticoagulated on Eliquis for his atrial fibrillation. MEDICATIONS: I agree with the patient medications as charted by the RN. ALLERGIES: I agree with the allergies as charted by the RN. PAST MEDICAL HISTORY/PAST SURGICAL HISTORY: Reviewed and agree as charted by RN. SOCIAL HISTORY: Reviewed and agree as charted by RN. FAMILY HISTORY: No significant familial comorbid conditions directly related to patient complaint EXAM: Reviewed vital signs as charted by RN. REVIEW OF SYSTEMS:reviewed vital signs by RN CONSTITUTIONAL : Denies fever, chills, or sweats. Denies recent illness. EENT: Denies eye, ear, throat, or mouth pain or symptoms. Denies nasal or sinus congestion or discharge. Denies throat, tongue, or mouth swelling or difficulty swallowing. CARDIOVASCULAR: Reports right-sided chest pain. Denies palpitations or racing or irregular heart beat. Denies ankle edema. RESPIRATORY: Denies cough, cold, or chest congestion. Denies shortness of breath, difficulty breathing, or wheezing. GASTROINTESTINAL: Denies abdominal pain or distention. Denies nausea, vomiting, or diarrhea. Denies blood in vomitus, stools, or per rectum. Denies black, tarry stools. Denies constipation. GENITOURINARY: Denies difficulty urinating, painful urination, burning, frequency, blood in urine, or discharge. MUSCULOSKELETAL: Denies back or neck pain or stiffness. Denies joint pain or swelling. SKIN: Denies rash, lesions or sores. HEMATOLOGIC : Denies easy bruising or bleeding. LYMPHATIC: Denies swollen, enlarged glands. NEUROLOGICAL: Denies confusion or altered mental status. Denies passing out or loss of consciousness. Denies dizziness or lightheadedness. Denies headache. Denies weakness or paralysis or loss of use of either side. Denies problems with gait or speech. Denies sensory loss, numbness, or tingling. Denies seizures. PSYCHIATRIC: Denies anxiety or stress. Denies depression, suicidal ideation, or homicidal ideation. ALL OTHER SYSTEMS REVIEWED AND NEGATIVE. Dictation was performed using [employer] voice recognition software PHYSICAL EXAMINATION: GENERAL: Well-appearing, well-nourished and in no acute distress. HEAD: Atraumatic, normocephalic. EYES: Pupils equal round and reactive to light, extraocular movements intact, sclera anicteric, conjunctiva are normal. ENT: Nares patent, oropharynx clear without exudates. Moist mucous membranes. NECK: Normal range of motion, supple without lymphadenopathy LUNGS: Breath sounds clear to auscultation bilaterally and equal. No wheezes rales or rhonchi. HEART: Regular rate and rhythm without murmurs. Unable to reproduce chest pain that brings patient to the emergency room when I palpate his chest. ABDOMEN: Soft, nontender, nondistended abdomen. No guarding, no rebound. No masses appreciated. Musculoskeletal: Normal range of motion, no pitting or edema. No cyanosis. NEUROLOGICAL: Cranial nerves grossly intact. Normal speech, normal gait. Normal sensory, motor exams PSYCH: Normal mood, normal affect. SKIN: Warm, Dry, normal turgor, no rashes or lesions noted. - Related Data Allergies/Adverse Reactions: latex [Latex] Allergy (Severe, Verified 03/05/20 08:39) WHITTAKER SKIN No Known Drug Allergies Allergy (Verified 03/05/20 08:39) Past Medical History - General Information source: Patient - Social History Smoking Status: Unknown if Ever Smoked Family History: Arthritis, CAD, CVA, DM, Hyperlipidemia, Hypertension, Malignancy - Past Medical History Cardiac Medical History: Reports: Hx Atrial Fibrillation, Hx Congestive Heart Failure, Hx Coronary Artery Disease, Hx Heart Attack, Hx Hypercholesterolemia, Hx Hypertension, Hx Peripheral Vascular Disease Pulmonary Medical History: Reports: Hx Asthma, Hx Bronchitis, Hx COPD, Hx Pneumonia - X2, Hx Sleep Apnea - Previously used CPAP 2-3 years ago but has not been since Neurological Medical History: Reports: Hx Cerebrovascular Accident. Denies: Hx Parkinson's Disease Endocrine Medical History: Reports: Hx Diabetes Mellitus Type 2 Renal/ Medical History: Reports: Hx Benign Prostatic Hyperplasia, Hx Kidney Stones. Denies: Hx Peritoneal Dialysis GI Medical History: Reports: Hx Gastroesophageal Reflux Disease, Hx Hiatal Hernia. Denies: Hx Pancreatitis Musculoskeletal Medical History: Reports Hx Arthritis, Reports Hx Muscu loskeletal Trauma, Denies Hx Systemic Lupus Erythematosus Psychiatric Medical History: Reports: Hx Depression, Hx Post Traumatic Stress Disorder, Hx Schizoaffective Disorder, Hx Schizophrenia Traumatic Medical History: Reports: Hx Fractures - Left foot Past Surgical History: Reports: Hx Cardiac Surgery - defib, Hx Herniorrhaphy, Hx Pacemaker - Pacemaker defibrillator, Hx Urinary Tract Surgery - prostate. testicle 6-3-14, Other - Penile procedure for erectile dysfunction - Immunizations Immunizations up to date: Yes Hx Diphtheria, Pertussis, Tetanus Vaccination: No Hx Pneumococcal Vaccination: 06/03/10 Physical Exam - Vital signs Vitals: Resp BP Pulse Ox 20 130/80 H 96 03/05/20 08:12 03/05/20 08:12 03/05/20 08:12 Course - Re-evaluation Re-evalutation: 03/05/20 10:00 Afebrile vital stable no distress. Nurses notes reviewed. CBC negative for leukocytosis. Creatinine 1.45, BUN 18, liver enzymes unremarkable. First troponin less than 0.012. BNP 18. EKG negative for any acute STEMI. Heart score 5. patient reports while he was in route via EMS they did give him 0.4 mg sublingual nitro twice which did help relieve some of his chest pain. EKG negative for STEMI. patient stating he is still having that right-sided chest pain, states it is worse with movement but I am unable to reproduce chest pain on palpation. Patient denies any chest pain is different or worse. second troponin pending. Chest x-ray does show cardiomegaly otherwise unremarkable. No electrolyte disturbances.1000-on reevaluation, patient states did not have any chest pain relief from the nitro, did feel some relief from the morphine 5mg IVP. Due to patient having a significant medical history with obesity, A. fib, unstable angina, TIA, hypertension, CAD as well as having heart attack 5 years ago with his last stress test being in 2016 and it is appropriate to admit for observation 1100-consulted with Dr. Sreekanth Norris MD, states that he will admit patient for observation for chest pain. Patient agree with this plan of care and agreed with plan of care. - Vital Signs Vital signs: Temp Pulse Resp BP Pulse Ox 97.4 F 60 19 115/71 100 03/05/20 15:02 03/05/20 15:02 03/05/20 15:02 03/05/20 15:02 03/05/20 15:02 - Laboratory Result Diagrams: 03/05/20 08:15 03/05/20 08:15 Laboratory results interpreted by me: 03/05/20 03/05/20 08:15 08:15 Hgb 13.4 L MCH 26.7 L RDW 17.2 H Plt Count 112 L Seg Neutrophils % 39.1 L Creatinine 1.45 H Est GFR ( Amer) 59 L Est GFR (MDRD) Non-Af 49 L Glucose 122 H Creatine Kinase 477 H - EKG Interpretation by Ok EKG shows normal: Sinus rhythm Rate: Normal Rhythm: NSR Additional EKG results interpreted by me: 03/05/20 10:03 Heart rate 65, P axis 51, QRS axis -19, T axis -5. Shows probable left ventricular atrophy. No STEMI. Essentially unchanged from previous EKG Discharge - Discharge Clinical Impression: Chest pain, Morbidly obese COPD (chronic obstructive pulmonary disease) Qualifiers: COPD type: unspecified COPD Qualified Code(s): J44.9 - Chronic obstructive pulmonary disease, unspecified CAD (coronary artery disease) Qualifiers: Coronary Disease-Associated Artery/Lesion type: [place] artery [place] vs. transp lanted heart: [place] heart Associated angina: without angina Qualified Code(s): I25.10 - Atherosclerotic heart disease of [place] coronary artery without angina pectoris Condition: Stable Disposition: ADMITTED OBSERVATION Admitting Provider: [facility] Unit Admitted: Telemetry
[2020-03-05 08:46] LABS: ALBUMIN 3.8 g/dL (3.5-5.0); ALKALINE PHOSPHATASE 97 U/L (38-126); ANION GAP 7 (5-19); ASPARTATE AMINO TRANSFERASE 19 U/L (17-59); BILIRUBIN,DIRECT 0.3 mg/dL (0.0-0.4); BILIRUBIN,TOTAL 0.6 mg/dL (0.2-1.3); BLOOD UREA NITROGEN 18 mg/dL (7-20); CALCIUM 8.5 mg/dL (8.4-10.2); CARBON DIOXIDE 29 mmol/L (22-30); CHLORIDE 105 mmol/L (98-107); CREATINE KINASE 477 U/L (55-170); GLUCOSE 122 mg/dL (75-110); NEONATAL BILIRUBIN RESULT 0.3 mg/dL (0.1-1.1); POTASSIUM 3.7 mmol/L (3.6-5.0)
[2020-03-05 08:58] LABS: TROPONIN I < 0.012 ng/mL
--- NOTE | 2020-03-05 09:15 | RADIOLOGY REPORT (SQ) ---
EXAM DESCRIPTION: CHEST SINGLE VIEW IMAGES COMPLETED DATE/TIME: 03/05/2020 8:42 am REASON FOR STUDY: bed 12 chest pain COMPARISON: None. NUMBER OF VIEWS: One view. TECHNIQUE: Single frontal radiographic view of the chest acquired. LIMITATIONS: None. FINDINGS: LUNGS AND PLEURA: No opacities, masses or pneumothorax. No pleural effusion. MEDIASTINUM AND HILAR STRUCTURES: No masses. Contour normal. HEART AND VASCULAR STRUCTURES: Heart enlarged without failure. Normal vasculature. BONES: No acute findings. HARDWARE: Left pacer, leads grossly intact. OTHER: No other significant finding. IMPRESSION: HEART ENLARGED WITHOUT FAILURE. NO OTHER SIGNIFICANT RADIOGRAPHIC FINDING IN THE CHEST. TECHNICAL DOCUMENTATION: JOB ID: [id number] 2010 [employer]- All Rights Reserved Reading location - IP/workstation name: [email or web address]
[2020-03-05] MEDS ORDERED: NORMAL SALINE 1000 ML 1,000 ML IV ONE (09:53)
[2020-03-05] MEDS ORDERED: MORPHINE SULFATE 10 MG/ML INJ ONE (15:24)
[2020-03-05] MEDS ORDERED: ALBUTEROL SULFATE HFA (90 MCG/PUFF) 8 GM MDI (1 MDI/ER DISP) IH PRN (15:27)
[2020-03-05 16:19] LABS: CREATINE KINASE MB 1.34 ng/mL (<4.55)
[2020-03-05 16:23] LABS: TROPONIN I < 0.012 ng/mL
[2020-03-05] MEDS: APIXABAN 5 MG TABLET PO SCH (18:10)
[2020-03-05] MEDS: NORMAL SALINE 1000 ML 1,000 ML IV PRN (18:35)
[2020-03-05 18:49] LABS: APPEARANCE,URINE CLEAR; BILIRUBIN,URINE NEGATIVE (NEGATIVE); COLOR,URINE YELLOW; GLUCOSE, URINE NEGATIVE (NEGATIVE); KETONES,URINE NEGATIVE (NEGATIVE); LEUKOCYTE ESTERASE,URINE TRACE (NEGATIVE); NITRITE,URINE NEGATIVE (NEGATIVE); PROTEIN,URINE NEGATIVE (NEGATIVE); URINE SPECIFIC GRAVITY 1.017
--- NOTE | 2020-03-05 20:32 | PDOC H&P ---
History of Present Illness Admission Date/PCP: 03/05/20 11:15 CARMEN GANT MD Patient complains of: Chest pain History of Present Illness: KRISH RAMOS JR is a 64 year old male patient of Dr. Gant who presented to the ED via EMS with two days duration with right sided chest pain and intermittent shortness of breath. He reported associated radiation f pain into his neck, right shoulder and upper arm region. He described pain as sharp and shooting in character. He denied any associated palpitation, diaphoresis, nausea, or vomiting. There was reported relief of his chest pain with administration of sublingual nitroglycerin total two doses and aspirin by the EMS crew. His morbidities include chronic atrial fibrillation for which he is currently on Eliquis for anticoagulation therapy. His initial ED evaluation was unrevealing but laboratory assessment revealed elevated total CK, renal indices suggestive of acute renal injury, and hyperglycemia. His morbidities are as listed below. He was advised hospitalization on observation bed to rule out acute coronary syndrome. Past Medical History Cardiac Medical History: Reports: Atrial Fibrillation, Congestive Heart Failure, Coronary Artery Disease, Myocardial Infarction, Hyperlipidema, Hypertension, Peripheral Vascular Disease Pulmonary Medical History: Reports: Asthma, Bronchitis, Chronic Obstructive Pulmonary Disease (COPD), Pneumonia - X2, Sleep Apnea - Previously used CPAP 2-3 years ago but has not been since Endocrine Medical History: Reports: Diabetes Mellitus Type 2 GI Medical History: Reports: Gastroesophageal Reflux Disease, Hiatal Hernia Musculoskeltal Medical History: Reports: Arthritis Psychiatric Medical History: Reports: Depression, Post Traumatic Stress Disorder, Schizoaffective Disorder Hematology: Reports: Anemia - ON IRON PILLS Past Surgical History Past Surgical History: Reports: Herniorrhaphy, Pacemaker - Pacemaker defibrillat or, Other - Penile procedure for erectile dysfunction Social History Smoking Status: Unknown if Ever Smoked Frequency of Alcohol Use: None Hx Recreational Drug Use: No Drugs: None Hx Prescription Drug Abuse: No - Advance Directive Resuscitation Status: Full Code Family History Family History: Arthritis, CAD, CVA, DM, Hyperlipidemia, Hypertension, Malignancy Parental Family History Reviewed: Yes Children Family History Reviewed: Yes Sibling(s) Family History Reviewed.: Yes Medication/Allergy Home Medications: Albuterol Sulfate [Proair HFA Inhalation Aerosol 8.5 gm MDI] 2 puff IH Q6HP PRN 10/02/17 Aripiprazole [Abilify 30 mg Tablet] 30 mg PO QHS 10/02/17 Budesonide/Formoterol Fumarate [Symbicort 160-4.5 Mcg Inhaler] 2 puff IH Q12 10/02/17 Clonazepam [Klonopin 1 mg Tablet] 1 mg PO Q12 10/02/17 Fluticasone Propionate [Flonase Nasal [place] 50 Mcg/[place] 16 gm] 1 spray NASL BID 10/02/17 Lisinopril [Prinivil 10 mg Tablet] 40 mg PO DAILY 10/02/17 Metoprolol Tartrate [Lopressor 50 mg Tablet] 50 mg PO Q12 10/02/17 Amlodipine Besylate [Norvasc 10 mg Tablet] 10 mg PO DAILY 09/15/18 Atorvastatin Calcium [Lipitor 80 mg Tablet] 80 mg PO QHS 09/15/18 Benztropine Mesylate [Cogentin 1 mg Tablet] 1 mg PO Q12 09/15/18 Cyanocobalamin (Vitamin B-12) [Vitamin B-12 1000 mcg Tablet] 1,000 mcg PO DAILY 09/15/18 Dofetilide [Tikosyn] 250 mcg PO Q12 09/15/18 Furosemide [Lasix 40 mg Tablet] 40 mg PO BID 09/15/18 Isosorbide Mononitrate [Imdur 30 mg Tablet.er] 30 mg PO DAILY 09/15/18 Magnesium Oxide [Mag-Ox 400 mg Tablet] 400 mg PO DAILY 09/15/18 Omeprazole 20 mg PO BIDACBS 09/15/18 Paroxetine HCl [Paxil 20 mg Tablet] 20 mg PO DAILY 09/15/18 Tamsulosin HCl [Flomax 0.4 mg Cap.sr] 0.4 mg PO DAILY 09/15/18 Apixaban [Eliquis 5 mg Tablet] 5 mg PO BID #60 tablet 10/10/18 Allergies/Adverse Reactions: latex [Latex] Allergy (Severe, Verified 03/05/20 08:39) WHITTAKER SKIN No Known Drug Allergies Allergy (Verified 03/05/20 08:39) Review of Systems Constitutional: ABSENT: chills, fever(s), headache(s), weight gain, weight loss Eyes: ABSENT: visual disturbances Ears: ABSENT: hearing changes Cardiovascular: PRESENT: chest pain - right sided with radiation to neck, shoulder and right upper arm regions, dyspnea on exertion - intermittent. ABSENT: edema, orthropnea, palpitations Respiratory: PRESENT: dyspnea - intermittent. ABSENT: cough, hemoptysis Gastrointestinal: ABSENT: abdominal pain, constipation, diarrhea, hematemesis, hematochezia, nausea, vomiting Genitourinary: ABSENT: dysuria, hematuria Musculoskeletal: ABSENT: joint swelling Integumentary: ABSENT: rash, wounds Neurological: ABSENT: abnormal gait, abnormal speech, confusion, dizziness, focal weakness, syncope Psychiatric: ABSENT: anxiety, depression, homidical ideation, suicidal ideation Endocrine: ABSENT: cold intolerance, heat intolerance, menstrual abnormalities, polydipsia, polyuria Hematologic/Lymphatic: ABSENT: easy bleeding, easy bruising, lymphadenopathy Physical Exam Vital Signs: Temp Pulse Resp BP Pulse Ox 97.4 F 60 19 115/71 100 03/05/20 15:02 03/05/20 15:02 03/05/20 15:02 03/05/20 15:02 03/05/20 15:02 Intake & Output 03/04/20 03/05/20 03/06/20 06:59 06:59 06:59 Intake Total 1000 Balance 1000 Weight 133.8 kg General appearance: PRESENT: no acute distress, morbidly obese Head exam: PRESENT: atraumatic, normocephalic Eye exam: PRESENT: conjunctiva pink, EOMI, PERRLA. ABSENT: scleral icterus Ear exam: PRESENT: normal external ear exam Mouth exam: PRESENT: moist, tongue midline Neck exam: PRESENT: full ROM. ABSENT: carotid bruit, JVD, lymphadenopathy, thyromegaly Respiratory exam: PRESENT: clear to auscultation martita Cardiovascular exam: PRESENT: RRR, +S1, +S2. ABSENT: diastolic murmur, rubs, systolic murmur Vascular exam: PRESENT: normal capillary refill. ABSENT: pallor GI/Abdominal exam: PRESENT: normal bowel sounds, soft. ABSENT: distended, guarding, mass, organolmegaly, rebound, tenderness Rectal exam: PRESENT: deferred Extremities exam: ABSENT: pedal edema Neurological exam: PRESENT: alert, awake, oriented to person, oriented to place, oriented to time, oriented to situation, CN II-XII grossly intact. ABSENT: motor sensory deficit Psychiatric exam: PRESENT: appropriate affect, normal mood. ABSENT: homicidal ideation, suicidal ideation Skin exam: PRESENT: dry, intact, warm. ABSENT: cyanosis, rash Results Laboratory Results: 03/05/20 08:15 03/05/20 08:15 03/05/20 03/05/20 08:15 08:15 WBC 6.2 RBC 5.03 Hgb 13.4 L Hct 40.5 MCV 81 MCH 26.7 L MCHC 33.1 RDW 17.2 H Plt Count 112 L Seg Neutrophils % 39.1 L Sodium 141.0 Potassium 3.7 Chloride 105 Carbon Dioxide 29 Anion Gap 7 BUN 18 Creatinine 1.45 H Est GFR ( Amer) 59 L Glucose 122 H Calcium 8.5 Total Bilirubin 0.6 AST 19 Alkaline Phosphatase 97 Total Protein 7.0 Albumin 3.8 03/05/20 03/05/20 03/05/20 08:15 08:15 08:15 Creatine Kinase 477 H CK-MB (CK-2) 1.40 Troponin I < 0.012 NT-Pro-B Natriuret Pep 18 03/05/20 11:15 Creatine Kinase CK-MB (CK-2) Troponin I < 0.012 NT-Pro-B Natriuret Pep Impressions: Chest X-Ray 03/05/20 07:53 IMPRESSION: HEART ENLARGED WITHOUT FAILURE. NO OTHER SIGNIFICANT RADIOGRAPHIC FINDING IN THE CHEST. Assessment & Plan - Diagnosis (1) Chest pain Qualifiers: Chest pain type: unspecified Qualified Code(s): R07.9 - Chest pain, unspecified Is this a current diagnosis for this admission?: Yes Plan: See covering admitting attending physician orders for details about care plan. (2) CAD (coronary artery disease) Qualifiers: Coronary Disease-Associated Artery/Lesion type: [place] artery [place] vs. transplanted heart: [place] heart Associated angina: without angina Qualified Code(s): I25.10 - Atherosclerotic heart disease of [place] coronary artery without angina pectoris Is this a current diagnosis for this admission?: Yes Plan: See covering admitting attending physician orders for details about care plan. (3) Chronic atrial fibrillation Is this a current diagnosis for this admission?: Yes Plan: See covering admitting attending physician orders for details about care plan. (4) HTN (hypertension) Qualifiers: Hypertension type: essential hypertension Qualified Code(s): I10 - Essential (primary) hypertension Is this a current diagnosis for this admission?: Yes Plan: See covering admitting attending physician orders for details about care plan. (5) Cardiomyopathy Qualifiers: Cardiomyopathy type: unspecified Qualified Code(s): I42.9 - Cardiomyopathy, unspecified Is this a current diagnosis for this admission?: Yes Plan: See covering admitting attending physician orders for details about care plan. (6) COPD (chronic obstructive pulmonary disease) Qualifiers: COPD type: unspecified COPD Qualified Code(s): J44.9 - Chronic obstructive pulmonary disease, unspecified Is this a current diagnosis for this admission?: Yes Plan: See covering admitting attending physician orders for details about care plan. (7) Hyperlipemia Qualifiers: Hyperlipidemia type: unspecified Qualified Code(s): E78.5 - Hyperlipidemia, unspecified Is this a current diagnosis for this admission?: Yes Plan: See covering admitting attending physician orders for details about care plan. (8) BPH loc w urin obs/LUTS Is this a current diagnosis for this admission?: Yes Plan: See covering admitting attending physician orders for details about care plan. (9) Cervical radiculopathy Is this a current diagnosis for this admission?: Yes Plan: See covering admitting attending physician orders for details about care plan. (10) Morbidly obese Is this a current diagnosis for this admission?: Yes Plan: See covering admitting attending physician orders for details about care plan. - Time Time Spent: 50 to 70 Minutes Medications reviewed and adjusted accordingly: Yes Anticipated Discharge Disposition: Home, Self Care Anticipated Discharge Timeframe: within 48 hours - Inpatient Certification Based on my medical assessment, after consideration of the patient's comorbid ities, presenting symptoms, or acuity I expect that the services needed warrant INPATIENT care.: Yes I certify that my determination is in accordance with my understanding of Medicare's requirements for reasonable and necessary INPATIENT services [42 CFR 412.3e].: Yes Medical Necessity: Significant Comorbidiites Make Outpatient Treatment Too Risky, Need Close Monitoring Due to Risk of Patient Decompensation, Need For Continuous Telemetry Monitoring, Risk of Complication if Not Cared For in Hospital, Risk of Diagnosis Which Will Require Inpatient Eval/Care/Monitoring Post Hospital Care: D/C Formal Waiter/Waitress Documentation - Plan Summary Plan Summary: See covering admitting attending physician orders for details about care plan.
[2020-03-05] MEDS: ATORVASTATIN CALCIUM 80 MG TABLET PO SCH (21:20)
[2020-03-05] MEDS: ARIPIPRAZOLE 5 MG TABLET PO SCH (21:20)
[2020-03-05] MEDS: CLONAZEPAM 1 MG TABLET PO SCH (21:20)
[2020-03-05] MEDS: DOFETILIDE 125 MCG CAPSULE PO SCH (21:20)
[2020-03-05] MEDS: METOPROLOL TARTRATE 50 MG TABLET PO SCH (21:20)
[2020-03-05] MEDS: BENZTROPINE MESYLATE 1 MG TABLET PO SCH (21:20)
[2020-03-05] MEDS: FLUTICASONE NASAL SPRAY 50 MCG/SPRY 120 SPRAY/16 GM NASL SCH (21:21)
[2020-03-05] MEDS ORDERED: FORMOTEROL FUMARATE IH SCH (22:00)
[2020-03-05] MEDS ORDERED: (PENDING PHARMACY ID) (Dofetilide [Tikosyn] 250 MCG) PO SCH (22:00)
[2020-03-05] MEDS ORDERED: [UNRECOGNIZED DRUG - OTHER] IH SCH (22:00)
[2020-03-05] MEDS ORDERED: BUDESONIDE IH SCH (22:00)
[2020-03-05 23:42] LABS: CREATINE KINASE MB 1.43 ng/mL (<4.55)
[2020-03-05 23:48] LABS: TROPONIN I < 0.012 ng/mL
[2020-03-06] MEDS: MORPHINE SULFATE 10 MG/ML INJ IV PRN ×2 (01:18→18:50)
[2020-03-06 04:31] LABS: ABSOLUTE EOSINOPHILS # (AUTO) 0.2 10^3/uL (0.0-0.6); ABSOLUTE LYMPHOCYTES (AUTO) 1.3 10^3/uL (0.5-4.7); ABSOLUTE MONOCYTES (AUTO) 0.8 10^3/uL (0.1-1.4); ABSOLUTE NEUT (AUTO) 5.9 10^3/uL (1.7-8.2); BASOPHILS % (AUTO) 0.1 % (0-2); EOSINOPHILS % (AUTO) 2.6 % (0-6); HEMATOCRIT 41.8 % (37.9-51.0); HEMOGLOBIN 13.7 g/dL (13.5-17.0); LYMPHOCYTES % (AUTO) 15.6 % (13-45); MEAN CORPUSCULAR HEMOGLOBIN 26.7 pg (27.0-33.4); MEAN CORPUSCULAR HGB CONC 32.9 g/dL (32.0-36.0); MEAN CORPUSCULAR VOLUME 81 fl (80-97); MONOCYTES % (AUTO) 9.7 % (3-13); PLATELET COUNT 107 10^3/uL (150-450); RED BLOOD COUNT 5.14 10^6/uL (4.35-5.55); RED CELL DISTRIBUTION WIDTH 17.1 % (11.5-14.0); TOTAL CELLS COUNTED % (AUTO) 100 %; WHITE BLOOD COUNT 8.2 10^3/uL (4.0-10.5)
[2020-03-06 05:06] LABS: ANION GAP 8 (5-19); BLOOD UREA NITROGEN 17 mg/dL (7-20); CALCIUM 8.7 mg/dL (8.4-10.2); CARBON DIOXIDE 29 mmol/L (22-30); CHLORIDE 105 mmol/L (98-107); GLUCOSE 105 mg/dL (75-110); POTASSIUM 4.6 mmol/L (3.6-5.0)
[2020-03-06 05:12] LABS: CREATINE KINASE MB 1.07 ng/mL (<4.55)
[2020-03-06 05:15] LABS: TROPONIN I < 0.012 ng/mL
[2020-03-06] MEDS: NORMAL SALINE 1000 ML 1,000 ML IV PRN ×2 (06:02→16:43)
[2020-03-06] MEDS: FLUTICASONE/VILANTEROL 200-25 MCG/DOSE IH SCH (10:57)
[2020-03-06] MEDS: FLUTICASONE NASAL SPRAY 50 MCG/SPRY 120 SPRAY/16 GM NASL SCH ×2 (10:57→21:21)
[2020-03-06] MEDS: ISOSORBIDE MONONITRATE 30 MG TAB.ER.24H PO SCH (10:59)
[2020-03-06] MEDS: METOPROLOL TARTRATE 50 MG TABLET PO SCH ×2 (10:59→21:21)
[2020-03-06] MEDS: CYANOCOBALAMIN (VITAMIN B-12) 1,000 MCG TABLET PO SCH (10:59)
[2020-03-06] MEDS: BENZTROPINE MESYLATE 1 MG TABLET PO SCH ×2 (10:59→21:21)
[2020-03-06] MEDS: MAGNESIUM OXIDE 400 MG TABLET PO SCH (11:00)
[2020-03-06] MEDS: CLONAZEPAM 1 MG TABLET PO SCH ×2 (11:00→21:21)
[2020-03-06] MEDS: APIXABAN 5 MG TABLET PO SCH ×2 (11:00→17:29)
[2020-03-06] MEDS: PAROXETINE HCL 20 MG TABLET PO SCH (11:00)
[2020-03-06] MEDS: TAMSULOSIN HCL 0.4 MG CAP.SR.24H PO SCH (11:00)
[2020-03-06] MEDS: LISINOPRIL 10 MG TABLET PO SCH (11:00)
[2020-03-06] MEDS: DOFETILIDE 125 MCG CAPSULE PO SCH ×2 (11:01→21:21)
--- NOTE | 2020-03-06 12:51 | PDOC PROGRESS REPORT ---
Subjective Progress Note for:: 03/06/20 Subjective:: Patient reported recurrent chest pain early this morning. No difficulty with breathing, palpitation, diaphoresis, nausea, or vomiting. Reason For Visit: CHEST PAIN Physical Exam Vital Signs: Temp Pulse Resp BP Pulse Ox 99.8 F 74 16 117/69 95 03/06/20 08:59 03/06/20 08:59 03/06/20 08:59 03/06/20 08:59 03/06/20 08:59 Intake & Output 03/05/20 03/06/20 03/07/20 06:59 06:59 06:59 Intake Total 2586 Output Total 1250 Balance 1336 Weight 134 kg General appearance: PRESENT: morbidly obese Head exam: PRESENT: atraumatic, normocephalic Eye exam: PRESENT: conjunctiva pink. ABSENT: scleral icterus Mouth exam: PRESENT: moist Respiratory exam: PRESENT: clear to auscultation martita Cardiovascular exam: PRESENT: RRR, +S1, +S2. ABSENT: diastolic murmur, rubs, systolic murmur Vascular exam: ABSENT: pallor GI/Abdominal exam: PRESENT: normal bowel sounds, soft. ABSENT: distended, guarding, mass, organolmegaly, rebound, tenderness Extremities exam: ABSENT: pedal edema Neurological exam: PRESENT: alert, awake Skin exam: PRESENT: dry, warm Results Laboratory Results: 03/06/20 03:25 03/06/20 03:25 03/05/20 03/06/20 03/06/20 08:15 03:25 03:25 WBC 8.2 RBC 5.14 Hgb 13.7 Hct 41.8 MCV 81 MCH 26.7 L MCHC 32.9 RDW 17.1 H Plt Count 107 L Seg Neutrophils % 72.0 Sodium 142.4 Potassium 4.6 Chloride 105 Carbon Dioxide 29 Anion Gap 8 BUN 17 Creatinine 1.39 H Est GFR ( Amer) > 60 Glucose 105 Calcium 8.7 Urine Color YELLOW Urine Appearance CLEAR Urine pH 5.0 Ur Specific [place] 1.017 Urine Protein NEGATIVE Urine Glucose (UA) NEGATIVE Urine Ketones NEGATIVE Urine Blood NEGATIVE Urine Nitrite NEGATIVE Ur Leukocyte Esterase TRACE H Urine WBC (Auto) 4 Urine RBC (Auto) 0 03/05/20 03/05/20 03/05/20 08:15 08:15 08:15 Creatine Kinase 477 H CK-MB (CK-2) 1.40 Troponin I < 0.012 NT-Pro-B Natriuret Pep 18 03/05/20 03/05/20 03/05/20 11:15 15:35 15:35 Creatine Kinase 423 H CK-MB (CK-2) 1.34 Troponin I < 0.012 < 0.012 NT-Pro-B Natriuret Pep 03/05/20 03/05/20 03/06/20 21:27 21:27 03:25 Creatine Kinase 398 H 301 H CK-MB (CK-2) 1.43 Troponin I < 0.012 NT-Pro-B Natriuret Pep 03/06/20 03:25 Creatine Kinase CK-MB (CK-2) 1.07 Troponin I < 0.012 NT-Pro-B Natriuret Pep Impressions: Chest X-Ray 03/05/20 07:53 IMPRESSION: HEART ENLARGED WITHOUT FAILURE. NO OTHER SIGNIFICANT RADIOGRAPHIC FINDING IN THE CHEST. Assessment & Plan - Diagnosis (1) Chest pain Qualifiers: Chest pain type: unspecified Qualified Code(s): R07.9 - Chest pain, unspecified Is this a current diagnosis for this admission?: Yes (2) CAD (coronary artery disease) Qualifiers: Coronary Disease-Associated Artery/Lesion type: [place] artery [place] vs. transplanted heart: [place] heart Associated angina: without angina Qualified Code(s): I25.10 - Atherosclerotic heart disease of [place] coronary artery without angina pectoris Is this a current diagnosis for this admission?: Yes (3) Chronic atrial fibrillation Is this a current diagnosis for this admission?: Yes (4) HTN (hypertension) Qualifiers: Hypertension type: essential hypertension Qualified Code(s): I10 - Essential (primary) hypertension Is this a current diagnosis for this admission?: Yes (5) Cardiomyopathy Qualifiers: Cardiomyopathy type: unspecified Qualified Code(s): I42.9 - Cardiomyopathy, unspecified Is this a current diagnosis for this admission?: Yes (6) COPD (chronic obstructive pulmonary disease) Qualifiers: COPD type: unspecified COPD Qualified Code(s): J44.9 - Chronic obstructive pulmonary disease, unspecified Is this a current diagnosis for this admission?: Yes (7) Hyperlipemia Qualifiers: Hyperlipidemia type: unspecified Qualified Code(s): E78.5 - Hyperlipidemia, unspecified Is this a current diagnosis for this admission?: Yes (8) BPH loc w urin obs/LUTS Is this a current diagnosis for this admission?: Yes (9) Cervical radiculopathy Is this a current diagnosis for this admission?: Yes (10) Morbidly obese Is this a current diagnosis for this admission?: Yes - Time Time Spent with patient: 25-34 minutes Level of Care: TELE Medications reviewed and adjusted accordingly: Yes Anticipated discharge: Home Anticipated DC Timeframe: within 48 hours - Inpatient Certification Based on my medical assessment, after consideration of the patient's comorbidities, presenting symptoms, or acuity I expect that the services needed warrant INPATIENT care.: Yes I certify that my determination is in accordance with my understanding of Medicare's requirements for reasonable and necessary INPATIENT services [42 CFR 412.3e].: Yes Medical Necessity: Significant Comorbidiites Make Outpatient Treatment Too Risky, Need Close Monitoring Due to Risk of Patient Decompensation, Need For IV Fluids, Need For Continuous Telemetry Monitoring, Risk of Complication if Not Cared For in Hospital, Risk of Diagnosis Which Will Require Inpatient Eval/Care/Monitoring - Plan Summary Plan Summary: Continue IV fluid support. Maintain on all other current medication management. Obtain total CK, BMP in am.
[2020-03-06] MEDS: ARIPIPRAZOLE 5 MG TABLET PO SCH (21:21)
[2020-03-06] MEDS: ATORVASTATIN CALCIUM 80 MG TABLET PO SCH (21:21)
[2020-03-07 05:50] LABS: ANION GAP 5 (5-19); BLOOD UREA NITROGEN 15 mg/dL (7-20); CALCIUM 8.2 mg/dL (8.4-10.2); CARBON DIOXIDE 31 mmol/L (22-30); CHLORIDE 104 mmol/L (98-107); CREATINE KINASE 199 U/L (55-170); GLUCOSE 110 mg/dL (75-110); POTASSIUM 4.2 mmol/L (3.6-5.0)
[2020-03-07] MEDS: MORPHINE SULFATE 10 MG/ML INJ IV PRN (06:04)
[2020-03-07] MEDS: NORMAL SALINE 1000 ML 1,000 ML IV PRN ×2 (06:06→15:18)
[2020-03-07] MEDS: LISINOPRIL 10 MG TABLET PO SCH (09:18)
[2020-03-07] MEDS: FLUTICASONE/VILANTEROL 200-25 MCG/DOSE IH SCH (09:19)
[2020-03-07] MEDS: PAROXETINE HCL 20 MG TABLET PO SCH (09:19)
[2020-03-07] MEDS: FLUTICASONE NASAL SPRAY 50 MCG/SPRY 120 SPRAY/16 GM NASL SCH ×2 (09:19→22:38)
[2020-03-07] MEDS: DOFETILIDE 125 MCG CAPSULE PO SCH ×2 (09:19→22:38)
[2020-03-07] MEDS: APIXABAN 5 MG TABLET PO SCH ×2 (09:20→17:29)
[2020-03-07] MEDS: CYANOCOBALAMIN (VITAMIN B-12) 1,000 MCG TABLET PO SCH (09:20)
[2020-03-07] MEDS: METOPROLOL TARTRATE 50 MG TABLET PO SCH ×2 (09:20→22:30)
[2020-03-07] MEDS: BENZTROPINE MESYLATE 1 MG TABLET PO SCH ×2 (09:20→22:30)
[2020-03-07] MEDS: CLONAZEPAM 1 MG TABLET PO SCH ×2 (09:20→22:29)
[2020-03-07] MEDS: ISOSORBIDE MONONITRATE 30 MG TAB.ER.24H PO SCH (09:20)
[2020-03-07] MEDS: TAMSULOSIN HCL 0.4 MG CAP.SR.24H PO SCH (09:20)
[2020-03-07] MEDS: MAGNESIUM OXIDE 400 MG TABLET PO SCH (09:20)
--- NOTE | 2020-03-07 20:30 | PDOC PROGRESS REPORT ---
Subjective Progress Note for:: 03/07/20 Subjective:: Patient was admitted for the evaluation of chest pain, the chest pain is atypical but he has multiple risk factors for ischemic heart disease, a pharmacologic stress test is ordered Reason For Visit: CHEST PAIN Physical Exam Vital Signs: Temp Pulse Resp BP Pulse Ox 97.6 F 62 20 137/80 H 94 03/07/20 15:04 03/07/20 15:04 03/07/20 15:04 03/07/20 15:04 03/07/20 15:04 Intake & Output 03/06/20 03/07/20 03/08/20 06:59 06:59 06:59 Intake Total 2586 3120 1160 Output Total 1250 1625 900 Balance 1336 1495 260 Weight 134 kg 136.2 kg General appearance: PRESENT: no acute distress Eye exam: PRESENT: PERRLA Respiratory exam: PRESENT: clear to auscultation martita Cardiovascular exam: PRESENT: +S1, +S2 Neurological exam: PRESENT: alert Results Laboratory Results: 03/06/20 03:25 03/07/20 04:18 03/07/20 04:18 Sodium 140.4 Potassium 4.2 Chloride 104 Carbon Dioxide 31 H Anion Gap 5 BUN 15 Creatinine 1.62 H Est GFR ( Amer) 52 L Glucose 110 Calcium 8.2 L 03/05/20 03/05/20 03/05/20 08:15 08:15 08:15 Creatine Kinase 477 H CK-MB (CK-2) 1.40 Troponin I < 0.012 NT-Pro-B Natriuret Pep 18 03/05/20 03/05/20 03/05/20 11:15 15:35 15:35 Creatine Kinase 423 H CK-MB (CK-2) 1.34 Troponin I < 0.012 < 0.012 NT-Pro-B Natriuret Pep 03/05/20 03/05/20 03/06/20 21:27 21:27 03:25 Creatine Kinase 398 H 301 H CK-MB (CK-2) 1.43 Troponin I < 0.012 NT-Pro-B Natriuret Pep 03/06/20 03/07/20 03:25 04:18 Creatine Kinase 199 H CK-MB (CK-2) 1.07 Troponin I < 0.012 NT-Pro-B Natriuret Pep Impressions: Chest X-Ray 03/05/20 07:53 IMPRESSION: HEART ENLARGED WITHOUT FAILURE. NO OTHER SIGNIFICANT RADIOGRAPHIC FINDING IN THE CHEST. Assessment & Plan - Diagnosis (1) Chest pain Qualifiers: Chest pain type: unspecified Qualified Code(s): R07.9 - Chest pain, unspecified Is this a current diagnosis for this admission?: Yes Plan: Nuclear stress test ordered (2) Atherosclerotic heart disease of [place] coronary artery without angina pectoris Qualifiers: [place] vs. transplanted heart: [place] heart Qualified Code(s): I25.10 - Atherosclerotic heart disease of [place] coronary artery without angina pectoris Is this a current diagnosis for this admission?: Yes (3) Morbid (severe) obesity due to excess calories Is this a current diagnosis for this admission?: Yes - Time Time Spent with patient: 25-34 minutes Level of Care: IMCU Medications reviewed and adjusted accordingly: Yes Anticipated discharge: Home Anticipated DC Timeframe: within 24 hours
[2020-03-07] MEDS: ARIPIPRAZOLE 5 MG TABLET PO SCH (22:28)
[2020-03-07] MEDS: ATORVASTATIN CALCIUM 80 MG TABLET PO SCH (22:29)
[2020-03-08] MEDS: NORMAL SALINE 1000 ML 1,000 ML IV PRN ×2 (02:09→15:16)
[2020-03-08] MEDS: FLUTICASONE NASAL SPRAY 50 MCG/SPRY 120 SPRAY/16 GM NASL SCH ×2 (11:25→21:43)
[2020-03-08] MEDS: FLUTICASONE/VILANTEROL 200-25 MCG/DOSE IH SCH (11:25)
[2020-03-08] MEDS: APIXABAN 5 MG TABLET PO SCH ×2 (11:26→17:41)
[2020-03-08] MEDS: CYANOCOBALAMIN (VITAMIN B-12) 1,000 MCG TABLET PO SCH (11:26)
[2020-03-08] MEDS: PAROXETINE HCL 20 MG TABLET PO SCH (11:26)
[2020-03-08] MEDS: BENZTROPINE MESYLATE 1 MG TABLET PO SCH ×2 (11:26→21:43)
[2020-03-08] MEDS: TAMSULOSIN HCL 0.4 MG CAP.SR.24H PO SCH (11:26)
[2020-03-08] MEDS: LISINOPRIL 10 MG TABLET PO SCH (11:26)
[2020-03-08] MEDS: DOFETILIDE 125 MCG CAPSULE PO SCH ×2 (11:26→21:44)
[2020-03-08] MEDS: ISOSORBIDE MONONITRATE 30 MG TAB.ER.24H PO SCH (11:26)
[2020-03-08] MEDS: MAGNESIUM OXIDE 400 MG TABLET PO SCH (11:26)
[2020-03-08] MEDS: CLONAZEPAM 1 MG TABLET PO SCH ×2 (11:27→21:43)
[2020-03-08] MEDS: METOPROLOL TARTRATE 50 MG TABLET PO SCH ×2 (11:27→21:43)
[2020-03-08] MEDS ORDERED: REGADENOSON INJ 0.4 MG/5 ML DISP.SYRIN IV ONE (11:46)
--- NOTE | 2020-03-08 15:32 | DRAGON STRESS TEST REPORT ---
Name: Rajat Abbott Jr : Jun Date: MAR 22 The patient underwent a stress/rest, single isotope SPECT Imaging with pharmacological stress and gated SPECT imaging on for evaluation of chest pain. The patient underwent infusion of regadnoson 0.4mg IV using the standard protocol. The heart rate was 66 beats per minute at baseline and increased to 89 beats during the infusion of regadenoson. The resting blood pressure was 121/78 mm/Hg and increased to 141/71 mm/Hg, which is a normal response. The patient complained of dyspnea during the procedure. The resting electrocardiogram demonstrated NSR. Stress electrocardiogram is non- diagnostic in the setting of pharmacological stress. Myocardial perfusion imaging was performed at rest following the injection of 15.44 mCi of sestamibi. At peak pharmacolgic effect, the patient was injected with 48.4 mCi of sestamibi. Gating post-stress tomographic imaging was performed 60 minutes after stress. Findings The overall quality of the study is good. Raw images demonstrate liver contamination of the inferior wall in both the resting and stress images. Left ventricular cavity is noted to be enlarged on the rest and stress studies. Resting SPECT images demonstrate a large sized, of moderate to severe intensity in the inferior wall from base to apex. Stress images demonstrate a large sized, of moderate to severe intensity in the inferior wall from base to apex Gated SPECT imaging reveals normal myocardial thickening and wall motion. The left ventricular ejection fraction was calculated to be 41% Impression -Myocardial perfusion imaging is abnormal with the above artifacts. -There is no scintigraphic evidence of ischemia however the inferior wall fixed defect may represent inferior wall attenuation vs a prior infarct. -Overall left ventricular systolic function was abnormal with an EF of 41% and without wall motion abnormalities. -The left ventricle is dilated. -Recommend echocardiogram to assess LVSF. -There are no prior studies for comparison. [facility]
--- NOTE | 2020-03-08 21:23 | PDOC PROGRESS REPORT ---
Subjective Progress Note for:: 03/08/20 Subjective:: He had a pharmacologic stress test with her there was no acute reversibility to suggest acute ischemia Reason For Visit: CHEST PAIN Physical Exam Vital Signs: Temp Pulse Resp BP Pulse Ox 97.8 F 68 19 131/78 H 97 03/08/20 20:16 03/08/20 20:16 03/08/20 20:16 03/08/20 20:16 03/08/20 20:16 Intake & Output 03/07/20 03/08/20 03/09/20 06:59 06:59 06:59 Intake Total 3120 2160 1600 Output Total 1625 2575 1125 Balance 1495 -415 475 Weight 136.2 kg 136.5 kg General appearance: PRESENT: no acute distress Eye exam: PRESENT: PERRLA Respiratory exam: PRESENT: clear to auscultation martita Cardiovascular exam: PRESENT: +S1, +S2 GI/Abdominal exam: PRESENT: soft Results Laboratory Results: 03/06/20 03:25 03/07/20 04:18 03/05/20 03/05/20 03/05/20 08:15 08:15 08:15 Creatine Kinase 477 H CK-MB (CK-2) 1.40 Troponin I < 0.012 NT-Pro-B Natriuret Pep 18 03/05/20 03/05/20 03/05/20 11:15 15:35 15:35 Creatine Kinase 423 H CK-MB (CK-2) 1.34 Troponin I < 0.012 < 0.012 NT-Pro-B Natriuret Pep 03/05/20 03/05/20 03/06/20 21:27 21:27 03:25 Creatine Kinase 398 H 301 H CK-MB (CK-2) 1.43 Troponin I < 0.012 NT-Pro-B Natriuret Pep 03/06/20 03/07/20 03:25 04:18 Creatine Kinase 199 H CK-MB (CK-2) 1.07 Troponin I < 0.012 NT-Pro-B Natriuret Pep Impressions: Chest X-Ray 03/05/20 07:53 IMPRESSION: HEART ENLARGED WITHOUT FAILURE. NO OTHER SIGNIFICANT RADIOGRAPHIC FINDING IN THE CHEST. Assessment & Plan - Diagnosis (1) Chest pain Qualifiers: Chest pain type: unspecified Qualified Code(s): R07.9 - Chest pain, unspecified Is this a current diagnosis for this admission?: Yes (2) Atherosclerotic heart disease of [place] coronary artery without angina pectoris Qualifiers: [place] vs. transplanted heart: [place] heart Qualified Code(s): I25.10 - Atherosclerotic heart disease of [place] coronary artery without angina pectoris Is this a current diagnosis for this admission?: Yes (3) Morbid (severe) obesity due to excess calories Is this a current diagnosis for this admission?: Yes - Time Time Spent with patient: 25-34 minutes Level of Care: MEDICAL Medications reviewed and adjusted accordingly: Yes Anticipated discharge: Home
[2020-03-08] MEDS: ARIPIPRAZOLE 5 MG TABLET PO SCH (21:43)
[2020-03-08] MEDS: ATORVASTATIN CALCIUM 80 MG TABLET PO SCH (21:43)
[2020-03-09] MEDS: NORMAL SALINE 1000 ML 1,000 ML IV PRN (03:12)
[2020-03-09] MEDS: FLUTICASONE/VILANTEROL 200-25 MCG/DOSE IH SCH (09:13)
[2020-03-09] MEDS: DOFETILIDE 125 MCG CAPSULE PO SCH (09:13)
[2020-03-09] MEDS: FLUTICASONE NASAL SPRAY 50 MCG/SPRY 120 SPRAY/16 GM NASL SCH (09:13)
[2020-03-09] MEDS: METOPROLOL TARTRATE 50 MG TABLET PO SCH (09:14)
[2020-03-09] MEDS: PAROXETINE HCL 20 MG TABLET PO SCH (09:14)
[2020-03-09] MEDS: APIXABAN 5 MG TABLET PO SCH (09:14)
[2020-03-09] MEDS: LISINOPRIL 10 MG TABLET PO SCH (09:14)
[2020-03-09] MEDS: TAMSULOSIN HCL 0.4 MG CAP.SR.24H PO SCH (09:14)
[2020-03-09] MEDS: CLONAZEPAM 1 MG TABLET PO SCH (09:14)
[2020-03-09] MEDS: ISOSORBIDE MONONITRATE 30 MG TAB.ER.24H PO SCH (09:14)
[2020-03-09] MEDS: BENZTROPINE MESYLATE 1 MG TABLET PO SCH (09:14)
[2020-03-09] MEDS: CYANOCOBALAMIN (VITAMIN B-12) 1,000 MCG TABLET PO SCH (09:14)
[2020-03-09] MEDS: MAGNESIUM OXIDE 400 MG TABLET PO SCH (09:14)
[2020-03-09 16:31] VITALS: BP 119/74
--- NOTE | 2020-03-09 18:10 | PDOC DISCHARGE SUMMARY ---
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 Is this a current diagnosis for this admission?: Yes (3) Morbid (severe) obesity due to excess calories Is this a current diagnosis for this admission?: Yes (4) CKD (chronic kidney disease) stage 3, GFR 30-59 ml/min Is this a current diagnosis for this admission?: Yes (5) T2DM (type 2 diabetes mellitus) Is this a current diagnosis for this admission?: Yes (6) Morbid obesity Is this a current diagnosis for this admission?: Yes (7) Obstructive sleep apnea Is this a current diagnosis for this admission?: Yes - Additional Information Resuscitation Status: Full Code Discharge Diet: Cardiac Discharge Activity: Activity As Tolerated Referrals: CARMEN GANT MD [Primary Care Provider] - 03/15/20 1:45 pm Home Medications: Albuterol Sulfate [Proair HFA Inhalation Aerosol 8.5 gm MDI] 2 puff IH Q6HP PRN 10/02/17 Aripiprazole [Abilify 30 mg Tablet] 30 mg PO QHS 10/02/17 Budesonide/Formoterol Fumarate [Symbicort 160-4.5 Mcg Inhaler] 2 puff IH Q12 10/02/17 Clonazepam [Klonopin 1 mg Tablet] 1 mg PO Q12 10/02/17 Fluticasone Propionate [Flonase Nasal Od[place] 50 Mcg/[place] 16 gm] 1 spray NASL BID 10/02/17 Lisinopril [Prinivil 10 mg Tablet] 40 mg PO DAILY 10/02/17 Metoprolol Tartrate [Lopressor 50 mg Tablet] 50 mg PO Q12 10/02/17 Amlodipine Besylate [Norvasc 10 mg Tablet] 10 mg PO DAILY 09/15/18 Atorvastatin Calcium [Lipitor 80 mg Tablet] 80 mg PO QHS 09/15/18 Benztropine Mesylate [Cogentin 1 mg Tablet] 1 mg PO Q12 09/15/18 Cyanocobalamin (Vitamin B-12) [Vitamin B-12 1000 mcg Tablet] 1,000 mcg PO DAILY 09/15/18 Dofetilide [Tikosyn] 250 mcg PO Q12 09/15/18 Furosemide [Lasix 40 mg Tablet] 40 mg PO BID 09/15/18 Isosorbide Mononitrate [Imdur 30 mg Tablet.er] 30 mg PO DAILY 09/15/18 Magnesium Oxide [Mag-Ox 400 mg Tablet] 400 mg PO DAILY 09/15/18 Omeprazole 20 mg PO BIDACBS 09/15/18 Paroxetine HCl [Paxil 20 mg Tablet] 20 mg PO DAILY 09/15/18 Tamsulosin HCl [Flomax 0.4 mg Cap.sr] 0.4 mg PO DAILY 09/15/18 Apixaban [Eliquis 5 mg Tablet] 5 mg PO BID #60 tablet 10/10/18 History of Present Illiness History of Present Illness: KRISH RAMOS JR is a 64 year old male who presented to the ED via EMS with two days duration with right sided chest pain and intermittent shortness of breath. He reported associated radiation f pain into his neck, right shoulder and upper arm region. He described pain as sharp and shooting in character. He denied any associated palpitation, diaphoresis, nausea, or vomiting. There was reported relief of his chest pain with administration of sublingual nitroglycerin total two doses and aspirin by the EMS crew. His morbidities include chronic atrial fibrillation for which he is currently on Eliquis for a nticoagulation therapy. His initial ED evaluation was unrevealing but laboratory assessment revealed elevated total CK, renal indices suggestive of acute renal injury, and hyperglycemia. His morbidities are as listed below. He was advised hospitalization on observation bed to rule out acute coronary syndrome. Hospital Course Hospital Course: Patient was admitted for the management of right-sided chest pain, there was no evidence of acute coronary syndrome patient on chronic anticoagulation with Eliquis, he had Cardiolite lexiscan stress test was obtained did not demonstrate any acute reversibility that suggest ischemia Physical Exam Vital Signs: Temp Pulse Resp BP Pulse Ox 97.5 F 65 16 119/74 95 03/09/20 16:00 03/09/20 16:00 03/09/20 16:00 03/09/20 16:00 03/09/20 16:00 Intake & Output 03/08/20 03/09/20 03/10/20 06:59 06:59 06:59 Intake Total 2160 2600 1685 Output Total 9360 1275 Balance -415 1325 1680 Weight 136.5 kg 135 kg General appearance: PRESENT: no acute distress Eye exam: PRESENT: PERRLA Respiratory exam: PRESENT: clear to auscultation martita Cardiovascular exam: PRESENT: +S1, +S2 Neurological exam: PRESENT: alert Results Laboratory Results: WBC 8.2 10^3/uL (4.0-10.5) 03/06/20 03:25 RBC 5.14 10^6/uL (4.35-5.55) 03/06/20 03:25 Hgb 13.7 g/dL (13.5-17.0) 03/06/20 03:25 Hct 41.8 % (37.9-51.0) 03/06/20 03:25 MCV 81 fl (80-97) 03/06/20 03:25 MCH 26.7 pg (27.0-33.4) L 03/06/20 03:25 MCHC 32.9 g/dL (32.0-36.0) 03/06/20 03:25 RDW 17.1 % (11.5-14.0) H 03/06/20 03:25 Plt Count 107 10^3/uL (150-450) L 03/06/20 03:25 Lymph % (Auto) 15.6 % (13-45) 03/06/20 03:25 Faulk % (Auto) 9.7 % (3-13) 03/06/20 03:25 Eos % (Auto) 2.6 % (0-6) 03/06/20 03:25 Baso % (Auto) 0.1 % (0-2) 03/06/20 03:25 Absolute Neuts (auto) 5.9 10^3/uL (1.7-8.2) 03/06/20 03:25 Absolute Lymphs (auto) 1.3 10^3/uL (0.5-4.7) 03/06/20 03:25 Absolute Monos (auto) 0.8 10^3/uL (0.1-1.4) 03/06/20 03:25 Absolute Eos (auto) 0.2 10^3/uL (0.0-0.6) 03/06/20 03:25 Absolute Basos (auto) 0.0 10^3/uL (0.0-0.2) 03/06/20 03:25 Seg Neutrophils % 72.0 % (42-78) 03/06/20 03:25 Sodium 140.4 mmol/L (137-145) 03/07/20 04:18 Potassium 4.2 mmol/L (3.6-5.0) 03/07/20 04:18 Chloride 104 mmol/L (98-107) 03/07/20 04:18 Carbon Dioxide 31 mmol/L (22-30) H 03/07/20 04:18 Anion Gap 5 (5-19) 03/07/20 04:18 BUN 15 mg/dL (7-20) 03/07/20 04:18 Creatinine 1.62 mg/dL (0.52-1.25) H 03/07/20 04:18 Est GFR ( Amer) 52 (>60) L 03/07/20 04:18 Est GFR (MDRD) Non-Af 43 (>60) L 03/07/20 04:18 Glucose 110 mg/dL (75-110) 03/07/20 04:18 POC Glucose 99 mg/dL (70-110) 03/05/20 13:25 Calcium 8.2 mg/dL (8.4-10.2) L 03/07/20 04:18 Total Bilirubin 0.6 mg/dL (0.2-1.3) 03/05/20 08:15 Direct Bilirubin 0.3 mg/dL (0.0-0.4) 03/05/20 08:15 Neonat Total Bilirubin 0.3 mg/dL (0.1-1.1) 03/05/20 08:15 Neonat Direct Bilirubin 0.0 mg/dL (0.0-0.3) 03/05/20 08:15 Neonat Indirect Bili 0.3 mg/dL (0.0-1.1) 03/05/20 08:15 AST 19 U/L (17-59) 03/05/20 08:15 ALT 15 U/L (<50) 03/05/20 08:15 Alkaline Phosphatase 97 U/L (38-126) 03/05/20 08:15 Creatine Kinase 199 U/L (55-170) H 03/07/20 04:18 CK-MB (CK-2) 1.07 ng/mL (<4.55) 03/06/20 03:25 Troponin I < 0.012 ng/mL 03/06/20 03:25 NT-Pro-B Natriuret Pep 18 pg/mL (<125) 03/05/20 08:15 Total Protein 7.0 g/dL (6.3-8.2) 03/05/20 08:15 Albumin 3.8 g/dL (3.5-5.0) 03/05/20 08:15 Urine Color YELLOW 03/05/20 08:15 Urine Appearance CLEAR 03/05/20 08:15 Urine pH 5.0 (5.0-9.0) 03/05/20 08:15 Ur Specific [place]aly 1.017 03/05/20 08:15 Urine Protein NEGATIVE mg/dL (NEGATIVE) 03/05/20 08:15 Urine Glucose (UA) NEGATIVE mg/dL (NEGATIVE) 03/05/20 08:15 Urine Ketones NEGATIVE mg/dL (NEGATIVE) 03/05/20 08:15 Urine Blood NEGATIVE (NEGATIVE) 03/05/20 08:15 Urine Nitrite NEGATIVE (NEGATIVE) 03/05/20 08:15 Urine Bilirubin NEGATIVE (NEGATIVE) 03/05/20 08:15 Urine Urobilinogen 2.0 mg/dL (<2.0) H 03/05/20 08:15 Ur Leukocyte Esterase TRACE (NEGATIVE) H 03/05/20 08:15 Urine WBC (Auto) 4 /HPF 03/05/20 08:15 Urine RBC (Auto) 0 /HPF 03/05/20 08:15 Squamous Epi Cells Auto <1 /HPF 03/05/20 08:15 Urine Mucus (Auto) RARE /LPF 03/05/20 08:15 Urine Ascorbic Acid NEGATIVE (NEGATIVE) 03/05/20 08:15 03/05/20 03/05/20 03/05/20 08:15 08:15 11:15 CK-MB (CK-2) 1.40 Troponin I < 0.012 < 0.012 NT-Pro-B Natriuret Pep 18 03/05/20 03/05/20 03/06/20 15:35 21:27 03:25 CK-MB (CK-2) 1.34 1.43 1.07 Troponin I < 0.012 < 0.012 < 0.012 NT-Pro-B Natriuret Pep Impressions: Chest X-Ray 03/05/20 07:53 IMPRESSION: HEART ENLARGED WITHOUT FAILURE. NO OTHER SIGNIFICANT RADIOGRAPHIC FINDING IN THE CHEST. Stroke Is this a Stroke Patient?: No Acute Heart Failure Is this a Heart Failure Patient?: No
== END 2020-03-09 16:28 | disposition home or self-care (01) ==
LOC: ER 07:51 → EH 11:15 → 4N 14:58
PROVIDERS: ADMIT Internal Medicine; ATTEND Internal Medicine
DX: R07.9 Chest pain, unspecified (principal); I25.10 Atherosclerotic heart disease of native coronary artery without angina pectoris; I13.0 Hypertensive heart and chronic kidney disease with heart failure and stage 1 through stage 4 chronic kidney disease, or unspecified chronic kidney disease; I50.9 Heart failure, unspecified; E11.22 Type 2 diabetes mellitus with diabetic chronic kidney disease; N18.30 Chronic kidney disease, stage 3 unspecified; I48.91 Unspecified atrial fibrillation; I42.9 Cardiomyopathy, unspecified; J44.9 Chronic obstructive pulmonary disease, unspecified; E78.5 Hyperlipidemia, unspecified; M54.12 Radiculopathy, cervical region; G47.33 Obstructive sleep apnea (adult) (pediatric); E66.01 Morbid (severe) obesity due to excess calories; R06.02 Shortness of breath; M25.511 Pain in right shoulder; M79.601 Pain in right arm; M54.2 Cervicalgia; M54.9 Dorsalgia, unspecified; Z79.01 Long term (current) use of anticoagulants; Z79.899 Other long term (current) drug therapy
CPT/HCPCS: 93005; 96376; 99285; 96374; 96375; 36415 ×3; 82553 ×2; 82962; 82550 ×3; 85025 ×2; 80048 ×2; 80053; 81001; 84484 ×2; 83880; 93017; 71045; 78452; 93010; G0378 ×5; A9500; J2785; J2270 ×3; J2405; J7030 ×5; J3490 ×2; Q9969